=== PATIENT | male | born 1945 | race Caucasian/White ===

== ENCOUNTER → 2016-06-29 | Outpatient (CLI) | payer OTHER ==
[~2016-06-29] MED LIST: ALBUAER19 INH; ASPI81TA28 PO; ATOR-22 PO; FERR325T5 PO; FURO-85 PO; MAGN500T4 PO; METF1000 PO; NTRGSL/4 UT; SPIR25TA PO; SYMIN160 INH; TIOTCAP INH; VERA1TAB53 PO
--- NOTE | 2016-06-29 12:32 | DIAGNOSTIC IMAGING REPORT ---
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 FINDINGS: The cardiac and mediastinal contours are normal. There is no evidence of focal pulmonary consolidation. There is no evidence of failure. No pleural effusions are visualized.[ There is subtle basilar interstitial thickening, best visualized in the lateral view. IMPRESSION: No active disease in the chest. Electronically signed by: Barry Melendez M.D. 06/29/2016 12:31 PM Dictated Date/Time: 06/29/2016 12:30 PM
== END | disposition home or self-care (01) ==
LOC: C.RAD1850 12:10
PROVIDERS: ATTEND Internal Medicine Pulmonary Disease
DX: Z00.00 Encounter for general adult medical examination without abnormal findings (principal); J44.9 Chronic obstructive pulmonary disease, unspecified

== ENCOUNTER → 2016-09-13 | Outpatient (CLI) | payer OTHER ==
--- NOTE | 2016-09-13 10:45 | DIAGNOSTIC IMAGING REPORT ---
CHEST CT WITHOUT CONTRAST CT DOSE: 487.47 mGy.cm HISTORY: Dyspnea J44.9 DOP (diffuse obstructive pulmonary syndrome)[id number] TECHNIQUE: Multiaxial CT images of the chest were performed without contrast. COMPARISON: None. FINDINGS: Emphysematous changes noted throughout both hemithoraces. No focal infiltrate. No significant nodular pathology. Hilar and mediastinal regions show no significant adenopathy. Moderate atherosclerotic change thoracic aorta. There is no evidence for aneurysm. There are moderate degenerative changes of the thoracic spine. IMPRESSION: Moderate emphysematous change. No acute process. Electronically signed by: Precy Landa M.D. 09/13/2016 10:44 AM Dictated Date/Time: 09/13/2016 10:42 AM
== END | disposition home or self-care (01) ==
LOC: C.CTS 10:17
PROVIDERS: ATTEND Internal Medicine Pulmonary Disease
DX: J44.9 Chronic obstructive pulmonary disease, unspecified (principal); J43.9 Emphysema, unspecified

== ENCOUNTER → 2017-10-27 | Outpatient (CLI) | payer OTHER | END | disposition home or self-care (01) | LOC: C.LABSPEC 17:18 | PROVIDERS: ATTEND Podiatrist Primary Podiatric Medicine | DX: B35.1 Tinea unguium (principal) ==

== ENCOUNTER 2018-06-13 10:50 | Inpatient (IN) ==
[2018-06-13 11:53] LABS: Basophils # (auto) 0.02 K/uL (0-0.2); Basophils % (auto) 0.2 %; Eosinophils # (auto) 2.11 K/uL (0-0.5); Eosinophils % (auto) 20.2 %; Hematocrit (blood only) 32.8 % (42-52); Immature Granulocytes # (auto) 0.04 K/uL (0.00-0.02); Immature Granulocytes % (auto) 0.4 %; Lymphocytes # (auto) 0.98 K/uL (1.2-3.4); Lymphocytes % (auto) 9.4 %; Mean Corpuscular Hgb Conc 30.5 g/dL (32-36); Mean Corpuscular Volume 93.7 fL (80-100); Mean Platelet Volume 9.7 fL (7.4-10.4); Monocytes # (auto) 0.42 K/uL (0.11-0.59); Neutrophils # (auto) 6.86 K/uL (1.4-6.5); Neutrophils % (auto) 65.8 %; Platelet Count 291 K/uL (130-400); RDW Coefficient of Variation 15.2 % (11.5-14.5); RDW Standard Deviation 52.2 fL (36.4-46.3); White Blood Count 10.43 K/uL (4.8-10.8)
--- NOTE | 2018-06-13 12:01 | XRay Report ---
XR chest 1V portable CLINICAL HISTORY: SOB COMPARISON STUDY: 04/19/2018 FINDINGS: Since the prior study, the patient has developed extensive right upper lobe airspace opacit ies and to a lesser extent right lower lung zone airspace opacities. There is underlying emphysema. T he left lung is clear. There is a trace right pleural effusion.[ IMPRESSION: Extensive right lung airspace opacities, likely secondary to pneumonia. Trace right pleur al effusion. Films subsequent to treatment are recommended in follow-up. Electronically signed by: Barry Melendez M.D. 06/13/2018 11:59 AM
[2018-06-13 12:05] LABS: INR 1.1 (0.9-1.1); Partial Thromboplastin Ratio 0.9; Partial Thromboplastin Time 24.8 Seconds (21.0-31.0)
[2018-06-13 12:15] LABS: Alanine Aminotransferase 19 U/L (12-78); Albumin Level 2.9 gm/dl (3.4-5.0); Aspartate Aminotransferase 13 U/L (15-37); BUN Creatinine Ratio 20.1 (10-20); Blood Urea Nitrogen 23 mg/dl (7-18); Calcium 8.5 mg/dl (8.5-10.1); Carbon Dioxide 34 mmol/L (21-32); Chloride 101 mmol/L (98-107); Creatinine Clr Calc Pharmacy 64.2 ml/min; Est GFR (African American) 72.3; Est GFR (Non-African American) 62.4; Glucose 214 mg/dl (70-99); Potassium 4.7 mmol/L (3.5-5.1); Sodium 137 mmol/L (136-145)
[2018-06-13 12:20] LABS: Albumin Globulin Ratio 0.7 (0.9-2); Alkaline Phosphatase 57 U/L (45-117); Bilirubin,Total 0.3 mg/dl (0.2-1); Globulin 3.9 gm/dl (2.5-4.0); Total Protein 6.8 gm/dl (6.4-8.2); Troponin I < 0.015 ng/ml (0-0.045)
[2018-06-13] MEDS ORDERED: ALBUT/IPRATROP 3MG/0.5MG NEB 3 ML VIAL NEB ONE (12:23)
[2018-06-13] MEDS ORDERED: methylPREDNISolone 125 MG/2 ML VIAL IV STA (12:23)
[2018-06-13 12:48] LABS: Magnesium 2.2 mg/dl (1.8-2.4)
[2018-06-13] MEDS ORDERED: OPTIRAY 320 125ml IV PRN (13:45)
[2018-06-13] MEDS: LEVOFLOXACIN/D5W 750 MG/150 ML BAG IV SCH (13:53)
--- NOTE | 2018-06-13 14:01 | CT Scan Report ---
CT ANGIOGRAM OF THE CHEST CLINICAL HISTORY: Shortness of breath. Possible pulmonary embolism. COMPARISON STUDY: Chest x-ray dated 06/13/2018 TECHNIQUE: Following the IV administration of 95 mL of Optiray-320, CT angiogram of the thorax was pe rformed from the thoracic inlet to the lung bases utilizing the pulmonary embolus protocol. Images ar e reviewed in the axial, sagittal, and coronal planes. IV contrast was administered without complicat ion. MIP imaging was performed. A dose lowering technique was utilized adhering to the principles of ALARA. CT DOSE: 333.70 mGy.cm FINDINGS: No pathologically enlarged axillary mediastinal or hilar lymph nodes were visualized. There is mild ectasia of the ascending thoracic aorta which measures 4 cm. There were no pulmonary artery filling defects to indicate acute pulmonary embolism. There is a small right pleural effusion. There is pulmonary emphysema. There are extensive right upper lobe airspace opacities, most likely se condary to pneumonia. There are dependent right lower lobe atelectatic changes. IMPRESSION: 1. No evidence of acute pulmonary embolism 2. Small right pleural effusion 3. Extensive right upper lobe airspace opacities likely secondary to a pneumonia. Films subsequent to treatment are recommended in follow-up. 4. Emphysema Electronically signed by: Barry Melendez M.D. 06/13/2018 2:00 PM
--- NOTE | 2018-06-13 14:06 | History & Physical Report ---
Date of Service June 13, 2018 Assessment & Plan (1) Hypoxia: (2) Community acquired pneumonia: (3) Acute exacerbation of chronic obstructive pulmonary disease (COPD): (4) Failure of outpatient treatment: - Admit to med surg with tele - ypically wears 3L O2 at all times, was hypoxic with sats = 86% on arrival, pt notes increased O2 to 5 L prior to admission. -Patient was started on Levaquin in the ER, will switch to ceftriaxone and doxycycline -Patient notes has been taking azithromycin Monday since April, likely for anti-inflammatory properties with history of severe COPD. Development of pneumonia on this antibiotic is concerning. -Will consult pulmonology for recs. -No leukocytosis, WBC 10.4, Afebrile, vital signs stable -We will continue on nebulizers Q4H and Q2Hprn -Placed on steroids for wheeze and taper -Patient has had recent PFTs on 05/30/18 demonstrating very severe obstructive pattern. Actual FEV1 is only 0.96 L. FEV1/FVC ratio is only 34%. After a repeat study with bronchodilators there was not much improvement in the function. Diffusion was normal at 88% predicted. (5) CHF (congestive heart failure): -Continue the patient on aspirin 81 mg daily, candesartan 4 mg daily. Patient notes history of recently being taken off spironolactone which is likely contributing to retention of fluid in bilateral lower extremities. -Give Lasix 40 mg IV now, hold p.o. Lasix as per [employer] meds -Can not find last Echo report in our system or allscripts -Consider cardiology consult- Dr. Enrique -Possible that fluid retention is making pneumonia appear more prominent on CT and xray (6) CAD (coronary artery disease): Continue medications as above (7) Hyperlipidemia: -Continue atorvastatin (8) SVT (supraventricular tachycardia): - History of such, stable (9) DM type 2 (diabetes mellitus, type 2): -ISS with Accu-Cheks achs, dapagliflozin, holding metformin - consider glycemic pharmacy consult with steriod use. -Checking A1c, patient reports most recent was 8.0 (10) Iron deficiency: - Hgb 10, dropped from 12 in Dec 2017, will monitor with am labs. (11) Hypertension: - Continue antihypertensives as above. (12) DVT prophylaxis: teds, scds, lovenox subq History of Present Illness Primary Care Provider: Diaz Thomas MD This is a 73 yo M with PMHx of HTN, HLD, CHF, pulmonary hypertension, SVT, diabetes, CAD, MO, peripheral neuropathy, COPD on O2 chronically, sleep apnea and arthritis who presents with worsening shortness of breath over the last few days. The patient notes that he yellow thin mucus which she has been expectorating greatly at night, but contributes this to taking Mucinex 600 mg BID. He notes that he has recently had to increase his O2 requirement from 2 L to 3 L continuously, and within the past few days has been wearing 5 L at all times. The patient has been unable to participate in basic ADLs without feeling short of breath. He denies any fevers chills or sweats. Patient notes that he sleeps lying flat but wakes up multiple times at night to urinate and reports his cough and mucus expectoration have largely been keeping him awake. Patient was in to see Dr. Enrique ~2 weeks ago for routine cardiology follow-up and was taken off his spironolactone and placed on candesartan due to his blood pressure being well managed. Patient notes his legs have gotten significantly swollen in the last 2 weeks. He takes Lasix 20 mg every other day and last took this y . He is also been recently started on dapaglifozin for DM. Patient notes that he has been taking azithromycin Monday for at least 2 months and follows with chief deputy, Dr. whiteside/Melissa Simpson PA-C routinely. Allergies Allergy/AdvReac Type Severity Reaction Status Date / Time ALYSSA Inhibitors Allergy Unknown ANAPHYLAXIS Verified 06/13/18 12:18 Home Medications Home Medications Medication Instructions Recorded Confirmed Type albuterol sulfate 2 puff INHALATION QID PRN 12/14/17 06/13/18 History aspirin 81 mg PO QAM 12/14/17 06/13/18 History atorvastatin 20 mg PO HS 12/14/17 06/13/18 History diltiazem HCl 360 mg PO DAILY 12/14/17 06/13/18 History ferrous sulfate 1 tab PO DAILY 12/14/17 06/13/18 History fluticasone-salmeterol 2 puff INHALATION BID 12/14/17 06/13/18 History metformin 1,000 mg PO BID 12/14/17 06/13/18 History nitroglycerin 0.4 mg SUBLINGUAL DIRECTED PRN 12/14/17 06/13/18 History azithromycin 250 mg PO DIRECTED 06/13/18 06/13/18 History candesartan 4 mg PO DAILY 06/13/18 06/13/18 History dapagliflozin 5 mg PO DAILY 06/13/18 06/13/18 History furosemide 2 tab PO DIRECTED 06/13/18 06/13/18 History guaifenesin 600 mg PO Q12H 06/13/18 06/13/18 History magnesium oxide 2 tab PO BID 06/13/18 06/13/18 History tiotropium bromide [Spiriva 2 puff INHALATION DAILY 06/13/18 06/13/18 History Respimat] Past Med/Surg History Medical History Hyperlipidemia CHF (congestive heart failure) Iron deficiency SVT (supraventricular tachycardia) DM type 2 (diabetes mellitus, type 2) CAD (coronary artery disease) COPD (chronic obstructive pulmonary disease) Cardiac disease H/O pulmonary emphysema HTN (hypertension) History of arthritis History of cardioversion History of heart attack History of pneumonia Hypomagnesemia Peripheral neuropathy Sleep apnea Surgical History History of colonoscopy History of nasal surgery Status post cataract extraction of both eyes with insertion of intraocular lens Social History Preferred Language: Micronesian Beliefs That Will Affect Care: None Current Living Situation: Alone Feels Safe at Home: Yes Smoking Status: Former smoker Hx Alcohol Use: Yes Hx Substance Use: Yes Review of Systems Constitutional: No fever, sweats or chills Eyes: No diplopia, no worsening or blurred vision ENT: normal hearing, no trouble swallowing Respiratory: As per HPI. Cardiovascular: No chest pain, tightness or palpitations Abdomen: No pain, nausea, vomiting, diarrhea or constipation Musculoskeletal: No joint pain, calf pain. + Increase bilat leg swelling Neurologic: No weakness, numbness/tingling, or balance problems Psychiatric: No anxiety or depression Skin: No rash or itch Physical Exam Vital Signs (Past 24 Hours): Last Vital Signs Temp 36.5 C 06/13/18 10:55 Pulse 75 06/13/18 14:00 Resp 16 06/13/18 14:00 BP 138/60 06/13/18 12:50 Pulse Ox 95 06/13/18 14:00 Physical Exam: General: awake, alert, no apparent distress Head: Normocephalic, atraumatic ENT: PERRL, EOMI, no pharyngeal exudate, mucous membranes moist Chest: On neb treatment at bedside with 7L, O2 sats = 98%, + diminished breath sounds in R base, + crackles in RUL, + tight breath sounds with inspiratory and exp wheeze. Cardiac: Regular rate and rhythm, no murmur, no JVD, normal peripheral pulses, good capillary refill Abdominal: NABS x 4 quadrants, soft, nontender to palpation, no rebound, guarding or tenderness Extremities: Normal inspection, 3+ peripheral edema bilaterally up to knees, no erythema, no hair over legs, calfs nontender to palpation Psych: Normal mood and affect Neuro: AAO x 3, strength intact bilaterally and related 5/5, no motor deficits, speech is clear, no peripheral sensory deficits Constitutional: WD/WN, vitals as above Eyes: normal visual lozoya by confrontation and + anicteric sclerae Neck: normal visual inspection and trachea midline Respiratory: no respiratory distress Auscultation: + crackles and + wheezes (expiratory and mild) Cardiovascular: Rate/Rhythm: regular rate and regular rhythm Gastrointestinal (Abdomen): Inspection/Auscultation: abdomen not distended Percussion/Palpation: abdomen soft; abdomen nontender Musculoskeletal: Head/Neck/Chest: normocephalic and head atraumatic 2+ pitting LE edema, + pedal pulses Skin: no rashes, warm and dry Neurologic: awake; not confused Speech / Cognition: normal speech Psychiatric: A+Ox3, euthymic affect Lymphatic: Exam as done by Melissa Rao DO Results & Data Diagnostic Findings XR chest 1V portable CLINICAL HISTORY: SOB COMPARISON STUDY: 04/19/2018 FINDINGS: Since the prior study, the patient has developed extensive right upper lobe airspace opacities and to a lesser extent right lower lung zone airspace opacities. There is underlying emphysema. The left lung is clear. There is a trace right pleural effusion.[ IMPRESSION: Extensive right lung airspace opacities, likely secondary to pneumonia. Trace right pleural effusion. Films subsequent to treatment are recommended in follow-up. CT ANGIOGRAM OF THE CHEST CLINICAL HISTORY: Shortness of breath. Possible pulmonary embolism. COMPARISON STUDY: Chest x-ray dated 06/13/2018 TECHNIQUE: Following the IV administration of 95 mL of Optiray-320, CT angiogram of the thorax was performed from the thoracic inlet to the lung bases utilizing the pulmonary embolus protocol. Images are reviewed in the axial, sagittal, and coronal planes. IV contrast was administered without complication. MIP imaging was performed. A dose lowering technique was utilized adhering to the principles of ALARA. CT DOSE: 333.70 mGy.cm FINDINGS: No pathologically enlarged axillary mediastinal or hilar lymph nodes were visualized. There is mild ectasia of the ascending thoracic aorta which measures 4 cm. There were no pulmonary artery filling defects to indicate acute pulmonary embolism. There is a small right pleural effusion. There is pulmonary emphysema. There are extensive right upper lobe airspace opacities, most likely secondary to pneumonia. There are dependent right lower lobe atelectatic changes. IMPRESSION: 1. No evidence of acute pulmonary embolism 2. Small right pleural effusion 3. Extensive right upper lobe airspace opacities likely secondary to a pneumonia. Films subsequent to treatment are recommended in follow-up. 4. Emphysema ECG Additional Comments: 13-JUN-2018 11:22:56 [facility] Poor data quality, interpretation may be adversely affected Normal sinus rhythm Normal ECG When compared with ECG of 14-DEC-2017 11:58, Premature ventricular complexes are no longer Present Confirmed by KIERAN CATES ([id number]) on 06/13/2018 2:38:23 PM 25mm/s 10mm/mV 150Hz 8.0 SP2 12SL 241 LEANDER: 11 Referred by: ED Confirmed By: KIERAN Crocker. rate 82 BPM CA interval 156 ms QRS duration 100 ms QT/QTc 380/443 ms P-R-T axes 51 76 67 Code Status & VTE Plan Code Status Full Code- discussed at bedside Supervising Physician Co-Signing Physician Notes Pt seen and examined by me. Denies chest pain. States that SOB is resolved. Has been tolerating PO without issue. Daughter arrived during my discussion with pt. She is a nurse and has some concerns about pt's current status. She states that prior to his admission in December for PNA, pt was only using O2 HS. He has not been able to wean off of this in the daytime. She states it is very hard for him to be seen in Dr. Whiteside's office. When he calls it is at least a two week wait time for an appt. She is concerned about multiple changes in his DM meds and the d/c of spironolactone as this has caused him substantial LE swelling. The spirono was stopped due to BP being WNL per pt. Agree with HPI/ROS as noted by PA See above for my exam in PE section Agree with plan as outlined above PNA + CHF exacerbation Pt is on azithromycin M/W/F but developed PNA despite this. Given levaquin in the ED, will upscale to doxy/ceftriaxone Lasix Nebs
[2018-06-13] MEDS ORDERED: DEXTROSE 50% 50 ML SYRINGE IV PRN (14:10)
[2018-06-13] MEDS ORDERED: GLUCOSE 10 TABS/TUBE PO PRN (14:10)
[2018-06-13] MEDS ORDERED: GLUCOSE 40% GEL 15 GM TUBE PO PRN (14:10)
[2018-06-13] MEDS ORDERED: GLUCAGON FOR INJ 1 MG VIAL SQ PRN (14:10)
[2018-06-13] MEDS ORDERED: CARBOHYDRATES FOR HYPOGLYCEMIA PO PRN (14:10)
[2018-06-13] MEDS ORDERED: ACETAMINOPHEN 325 MG TAB PO PRN (14:10)
[2018-06-13] MEDS ORDERED: ONDANSETRON INJ 2 MG/ML 2 ML VIAL IV PRN (14:10)
[2018-06-13] MEDS ORDERED: LEVALBUTEROL HCL 1.25 MG/3 ML NEB NEB SCH (14:15)
[2018-06-13] MEDS ORDERED: FUROSEMIDE 40 MG/4 ML VIAL IV STA (14:42)
[2018-06-13] MEDS: DOXYCYCLINE HYCLATE 100 MG in DEXTROSE 5% 100 ML IV SCH (17:34)
[2018-06-13] MEDS: INSULIN ASPART 100 UNITS/ML 3 ML PEN SC SCH ×2 (17:37→22:14)
[2018-06-13] MEDS: ENOXAPARIN INJ 40 MG/0.4 ML SYR SQ SCH (17:38)
[2018-06-13] MEDS: LEVALBUTEROL HCL 1.25 MG/3 ML NEB NEB SCH (19:02)
[2018-06-13] MEDS: guaiFENesin 600 MG TABCR PO SCH (20:03)
[2018-06-13] MEDS: BENZONATATE 100 MG CAPSULE PO SCH (20:03)
[2018-06-13] MEDS: MAGNESIUM OXIDE 400 MG TAB PO SCH (20:03)
[2018-06-13] MEDS: ATORVASTATIN 20 MG TAB PO SCH (20:03)
--- NOTE | 2018-06-14 01:43 | Emergency Department Note ---
Entered by Duane Peres acting as a scribe for Aamir Camp MD History of Present Illness General Chief complaint: Shortness of Breath/Dyspnea Stated complaint: BREATHING PROBLEMS Time Seen by Provider: 06/13/18 12:07 Source: patient Limitations: no limitations History of Present Illness Provider complaint: SOB Onset (ago): day(s) Location: chest (worsening SOB) Pain Consistency: + other (worsening) Quality: + other (SOB) Exacerbated By: + other (laying in bed at night) Associated symptoms: + cough and + other (LE swelling) Treatments prior to arrival: other (Azithromycin ) The patient is a 73 year old male who presents to the Emergency Room with complaints of worsening shortness of breath over the past couple of days. The patient states that he does have shortness of breath at baseline and is on 3 liters of oxygen normally. He notes that his Fund Director did increase his oxygen from 3 liter to 5 liters "just the other day" due to his worsening breathing. The patient adds that he has been having increased difficulty breathing, which is most noticeable when he walks to the restroom. This is unusual for him. The shortness of breath is worsened by laying flat at night and he needed to sleep sitting up in a chair last night. The patient has had a productive cough as well, which is producing a "thin reyna yellow mucous." He believes that the mucous is being "thinned out" by the Mucinex he has been taking. The patient was diagnosed with a right sided pneumonia in December of last year, 6 months ago. The patient's ex- at bedside believes that this episode of pneumonia was never cleared fully. He is still on Azithromycin every other day. The patient continues to complain that his legs have felt incr easingly swollen. He is on Lasix and denies missing any dosages. The patient is scheduled to have a sleep-study performed and is to be given a C-pap device. Home Medications Home Medications Medication Instructions Recorded Confirmed Type albuterol sulfate 2 puff INHALATION QID PRN 12/14/17 06/13/18 History aspirin 81 mg PO QAM 12/14/17 06/13/18 History atorvastatin 20 mg PO HS 12/14/17 06/13/18 History diltiazem HCl 360 mg PO DAILY 12/14/17 06/13/18 History ferrous sulfate 1 tab PO DAILY 12/14/17 06/13/18 History fluticasone-salmeterol 2 puff INHALATION BID 12/14/17 06/13/18 History metformin 1,000 mg PO BID 12/14/17 06/13/18 History nitroglycerin 0.4 mg SUBLINGUAL DIRECTED PRN 12/14/17 06/13/18 History azithromycin 250 mg PO DIRECTED 06/13/18 06/13/18 History candesartan 4 mg PO DAILY 06/13/18 06/13/18 History dapagliflozin 5 mg PO DAILY 06/13/18 06/13/18 History furosemide 2 tab PO DIRECTED 06/13/18 06/13/18 History guaifenesin 600 mg PO Q12H 06/13/18 06/13/18 History magnesium oxide 2 tab PO BID 06/13/18 06/13/18 History tiotropium bromide [Spiriva 2 puff INHALATION DAILY 06/13/18 06/13/18 History Respimat] Allergies Allergy/AdvReac Type Severity Reaction Status Date / Time ALYSSA Inhibitors Allergy Unknown ANAPHYLAXIS Verified 06/13/18 12:18 Past Med/Surg History Medical History Hypertension Hypoxia Community acquired pneumonia Pneumonia (Acute) Acute exacerbation of chronic obstructive pulmonary disease (COPD) (Acute) Hyperlipidemia CHF (congestive heart failure) Iron deficiency SVT (supraventricular tachycardia) DM type 2 (diabetes mellitus, type 2) CAD (coronary artery disease) Diabetes COPD (chronic obstructive pulmonary disease) Cardiac disease H/O pulmonary emphysema HTN (hypertension) History of arthritis History of cardioversion History of heart attack History of pneumonia Hypomagnesemia Peripheral neuropathy Sleep apnea Surgical History History of colonoscopy History of nasal surgery Status post cataract extraction of both eyes with insertion of intraocular lens Family History Other Brain tumor Depression Hypertension Stroke Social History Preferred Language: Divehi Communication Ability: Effective Beliefs That Will Affect Care: None Current Living Situation: Alone Other Information That Helps Us Care for You: No Feels Safe at Home: Yes Safety Concerns: Feels Safe At This Time Smoking Status: Former smoker Hx Alcohol Use: Yes Hx Substance Use: No Review of Systems See HPI for pertinent positives & negatives. and A total of 10 systems reviewed and were otherwise negative Physical Exam Vital Signs Vital Signs - 24 hr 06/13/18 10:55 06/13/18 11:15 06/13/18 11:22 Temperature 36.5 C Temperature Source Oral Sepsis Recent Fever Within 48 Hours No Sepsis New/Unexplained Change in Mental Status No Sepsis Action Taken by Nursing No Action Required Pulse Rate 88 Pulse Rate [Apical] Pulse Rate [Finger] Pulse Rhythm [Apical] Pulse Rhythm [Finger] Pulse Strength [Apical] Pulse Strength [Finger] Respiratory Rate 20 Respiratory Effort / Characteristics Non-Labored Spontaneous Respiratory Depth Normal Respiratory Pattern Regular Blood Pressure 135/68 Blood Pressure [Left Arm] Blood Pressure [Right Arm] Blood Pressure Mean 90 Blood Pressure Mean [Left Arm] Blood Pressure Mean [Right Arm] Blood Pressure Position [Left Arm] Blood Pressure Position [Right Arm] Pulse Oximetry 86 L 96 Oxygen Delivery Method Nasal Cannula Nasal Cannula Nasal Cannula Oxygen Flow Rate 5 5 5 06/13/18 11:32 06/13/18 12:50 06/13/18 14:00 Temperature Temperature Source Sepsis Recent Fever Within 48 Hours Sepsis New/Unexplained Change in Mental Status Sepsis Action Taken by Nursing Pulse Rate Pulse Rate [Apical] 80 75 Pulse Rate [Finger] Pulse Rhythm [Apical] Regular Pulse Rhythm [Finger] Pulse Strength [Apical] Normal Pulse Strength [Finger] Respiratory Rate 18 16 Respiratory Effort / Characteristics Non-Labored Spontaneous Non-Labored Spontaneous Respiratory Depth Normal Respiratory Pattern Regular Blood Pressure Blood Pressure [Left Arm] Blood Pressure [Right Arm] 138/60 Blood Pressure Mean Blood Pressure Mean [Left Arm] Blood Pressure Mean [Right Arm] 86 Blood Pressure Position [Left Arm] Blood Pressure Position [Right Arm] Lying Pulse Oximetry 96 97 95 Oxygen Delivery Method Nasal Cannula Nasal Cannula Nasal Cannula Oxygen Flow Rate 5 5 6 06/13/18 14:36 06/13/18 15:14 06/13/18 15:47 Temperature 36.4 C L Temperature Source Oral Sepsis Recent Fever Within 48 Hours Sepsis New/Unexplained Change in Mental Status Sepsis Action Taken by Nursing Pulse Rate 77 Pulse Rate [Apical] 75 86 Pulse Rate [Finger] Pulse Rhythm [Apical] Regular Regular Pulse Rhythm [Finger] Pulse Strength [Apical] Normal Normal Pulse Strength [Finger] Respiratory Rate 16 20 Respiratory Effort / Characteristics Non-Labored Spontaneous Non-Labored Spontaneous Respiratory Depth Normal Normal Respiratory Pattern Regular Regular Blood Pressure Blood Pressure [Left Arm] Blood Pressure [Right Arm] 137/59 L 137/66 Blood Pressure Mean Blood Pressure Mean [Left Arm] Blood Pressure Mean [Right Arm] 85 89 Blood Pressure Position [Left Arm] Blood Pressure Position [Right Arm] Lying Sitting Pulse Oximetry 95 92 Oxygen Delivery Method Nasal Cannula Nasal Cannula Oxygen Flow Rate 5 5 06/13/18 18:44 06/13/18 19:02 06/13/18 20:00 Temperature 36.7 C Temperature Source Oral Sepsis Recent Fever Within 48 Hours Sepsis New/Unexplained Change in Mental Status Sepsis Action Taken by Nursing Pulse Rate Pulse Rate [Apical] 98 H Pulse Rate [Finger] 78 Pulse Rhythm [Apical] Pulse Rhythm [Finger] Pulse Strength [Apical] Pulse Strength [Finger] Respiratory Rate 18 18 Respiratory Effort / Characteristics Non-Labored Spontaneous SOB on Exertion Non-Labored Spontaneous Respiratory Depth Normal Respiratory Pattern Regular Blood Pressure Blood Pressure [Left Arm] 139/66 Blood Pressure [Right Arm] Blood Pressure Mean Blood Pressure Mean [Left Arm] 90 Blood Pressure Mean [Right Arm] Blood Pressure Position [Left Arm] Lying Blood Pressure Position [Right Arm] Pulse Oximetry 89 L 90 Oxygen Delivery Method Nasal Cannula Nasal Cannula Nasal Cannula Oxygen Flow Rate 5 5 5 06/13/18 23:24 Temperature 36.7 C Temperature Source Oral Sepsis Recent Fever Within 48 Hours Sepsis New/Unexplained Change in Mental Status Sepsis Action Taken by Nursing Pulse Rate Pulse Rate [Apical] Pulse Rate [Finger] 68 Pulse Rhythm [Apical] Pulse Rhythm [Finger] Regular Pulse Strength [Apical] Pulse Strength [Finger] Normal Respiratory Rate 18 Respiratory Effort / Characteristics Non-Labored Respiratory Depth Normal Respiratory Pattern Regular Blood Pressure Blood Pressure [Left Arm] 148/71 H Blood Pressure [Right Arm] Blood Pressure Mean Blood Pressure Mean [Left Arm] 96 Blood Pressure Mean [Right Arm] Blood Pressure Position [Left Arm] Lying Blood Pressure Position [Right Arm] Pulse Oximetry 94 Oxygen Delivery Method Oxygen Flow Rate GENERAL: Awake, alert, ill-appearing, in no distress HENT: Normocephalic, atraumatic. Oropharynx with dry mucous membranes and otherwise unremarkable. EYES: Normal conjunctiva. Sclera non-icteric. NECK: Supple. No nuchal rigidity. FROM. No JVD. RESPIRATORY: Rhonchi throughout right lung lozoya and scattered wheezes throughout. CARDIAC: Regular rate, normal rhythm. Extremities warm and well perfused. Pulses equal. ABDOMEN: Soft, non-distended. No tenderness to palpation. No rebound or gua rding. No masses. RECTAL: Deferred. MUSCULOSKELETAL: Chest examination reveals no tenderness. The back is symmetrical on inspection without obvious abnormality. There is no CVA tenderness to palpation. No joint edema. LOWER EXTREMITIES: Calves are equal size bilaterally and non-tender. 3+ bilateral lower extremity edema. No discoloration. NEURO: Normal sensorium. No sensory or motor deficits noted. SKIN: No rash or jaundice noted. Course 1216: Past medical records reviewed. The patient was evaluated in room C11A, and a complete history and physical examination were performed. 1253: Past records reviewed. Patient has history of COPD, DM2, CAD, CHF, HTN, HLD. He was admitted in December of 2017 for pneumonia. 1256: I reviewed the patient's case with Melissa Rao [facility] Hospitalist - [facility] Hospitalist. She will evaluate the patient for further management. Administered Medications Atorvastatin Calcium (Lipitor) 20 mg PO HS RICHARD Stop: 07/13/18 20:59 Last Admin: 06/13/18 20:03 Dose: 20 mg Documented by: [id number] Benzonatate (Tessalon Perle) 100 mg PO TID RICHARD Stop: 07/13/18 20:59 Last Admin: 06/13/18 20:03 Dose: 100 mg Documented by: [id number] Enoxaparin Sodium (Lovenox) 40 mg SQ Q24H RICHARD Stop: 07/13/18 16:59 Last Admin: 06/13/18 17:38 Dose: 40 mg Documented by: [id number] Guaifenesin (Mucinex) 1,200 mg PO Q12 RICHARD Stop: 07/13/18 20:59 Last Admin: 06/13/18 20:03 Dose: 1,200 mg Documented by: [id number] Levofloxacin/Dextrose (Levaquin/D5w) 750 mg in 150 mls @ 100 mls/hr IV Q24H RICHARD Stop: 06/20/18 12:29 Last Infusion: 06/13/18 15:30 Dose: 0 mls/hr Documented by: [id number] Admin: 06/13/18 13:53 Dose: 100 mls/hr Documented by: [id number] Doxycycline Hyclate 100 mg/ (Dextrose) 110 mls @ 50 mls/hr IV Q12H RICHARD Stop: 06/20/18 16:59 Last Infusion: 06/13/18 20:01 Dose: 0 mls/hr Documented by: [id number] Admin: 06/13/18 17:34 Dose: 50 mls/hr Documented by: [id number] Insulin Aspart (Novolog Flexpen) 0 units SC ACHS RICHARD Stop: 07/13/18 16:29 Last Admin: 06/13/18 22:14 Dose: 5 units Documented by: [id number] Cosigned by: [id number] Admin: 06/13/18 17:37 Dose: 7 units Documented by: [id number] Cosigned by: [id number] Ioversol (Optiray 320 125ml) 95 ml IV ONCE PRN PRN Reason: Interaction Checking Stop: 06/17/18 13:44 Last Admin: 06/13/18 13:45 Dose: 95 ml Documented by: [id number] Levalbuterol HCl (Xopenex 1.25mg/3ml Neb) 1.25 mg NEB Q6R RICHARD Stop: 07/13/18 14:14 Last Admin: 06/13/18 19:02 Dose: 1.25 mg Documented by: [id number] Magnesium Oxide (Mag-Ox) 800 mg PO BID RICHARD Stop: 07/13/18 20:59 Last Admin: 06/13/18 20:03 Dose: 800 mg Documented by: [id number] Miscellaneous (Order Awaiting Action) 1 ea N/A QS RICHARD Stop: 07/14/18 00:00 Last Admin: 06/13/18 23:14 Dose: Not Given Documented by: [id number] Miscellaneous (Order Awaiting Action) 1 ea N/A QS RICHARD Stop: 07/14/18 00:00 Last Admin: 06/13/18 23:14 Dose: Not Given Documented by: [id number] Discontinued Medications Albuterol (Duoneb) 12 ml NEB ONE ONE Stop: 06/13/18 12:24 Last Admin: 06/13/18 13:59 Dose: 12 ml Documented by: [id number] Furosemide (Lasix) 40 mg IV NOW STA Stop: 06/13/18 14:43 Last Admin: 06/13/18 17:34 Dose: 40 mg Documented by: [id number] Levalbuterol HCl (Xopenex 1.25mg/3ml Neb) 1.25 mg NEB Q6H RICHARD Stop: 07/13/18 14:14 Last Admin: 06/13/18 19:48 Dose: Not Given Documented by: [id number] Methylprednisolone (Solumedrol) 125 mg IV NOW STA Stop: 06/13/18 12:24 Last Admin: 06/13/18 12:50 Dose: 125 mg Documented by: [id number] Medical Decision Making Differential Diagnosis Differential diagnosis: Etiologies such as infections, reactive airway disease, COPD, pneumonia, pleural effusion, pulmonary edema, ARDS, pneumothorax, CHF, cardiac ischemia, cardiac tamponade, dysrhythmia, anemia, pulmonary embolism, musculoskeletal, gastrointestinal process, as well as others were entertained. Medical Records Attestation: I reviewed the patient's medical records. Home Medications Current Medication List: was personally reviewed by me Laboratory Data Attestation: I reviewed the patient's lab results. Result diagrams: 06/13/18 11:40 06/13/18 11:40 Lab Results 06/13/18 06/13/18 06/13/18 Range/Units 11:40 11:40 11:40 WBC 10.43 (4.8-10.8) K/uL RBC 3.50 L (4.7-6.1) M/uL Hgb 10.0 L (14.0-18.0) g/dL Hct 32.8 L (42-52) % MCV 93.7 (80-100) fL MCH 28.6 (25-34) pg MCHC 30.5 L (32-36) g/dL RDW Std Deviation 52.2 H (36.4-46.3) fL RDW Coeff of Arnoldo 15.2 H (11.5-14.5) % Plt Count 291 (130-400) K/uL MPV 9.7 (7.4-10.4) fL Immature Gran % (Auto) 0.4 % Neut % (Auto) 65.8 % Lymph % (Auto) 9.4 % Hawkins % (Auto) 4.0 % Eos % (Auto) 20.2 % Baso % (Auto) 0.2 % Immature Gran # (Auto) 0.04 H (0.00-0.02) K/uL Neut # (Auto) 6.86 H (1.4-6.5) K/uL Lymph # (Auto) 0.98 L (1.2-3.4) K/uL Hawkins # (Auto) 0.42 (0.11-0.59) K/uL Eos # (Auto) 2.11 H (0-0.5) K/uL Baso # (Auto) 0.02 (0-0.2) K/uL PT 11.0 (9.0-12.0) Seconds INR 1.1 (0.9-1.1) APTT 24.8 (21.0-31.0) Seconds PTT Ratio 0.9 Sodium 137 (136-145) mmol/L Potassium 4.7 (3.5-5.1) mmol/L Chloride 101 (98-107) mmol/L Carbon Dioxide 34 H (21-32) mmol/L Anion Gap 2.0 L (3-11) BUN 23 H (7-18) mg/dl Creatinine 1.17 (0.6-1.4) mg/dl Est Cr Clr Drug Dosing 64.2 ml/min Est GFR ( Amer) 72.3 Est GFR (Non-Af Amer) 62.4 BUN/Creatinine Ratio 20.1 H (10-20) Glucose 214 H (70-99) mg/dl POC Glucose (70-99) Calcium 8.5 (8.5-10.1) mg/dl Magnesium (1.8-2.4) mg/dl Total Bilirubin 0.3 (0.2-1) mg/dl AST 13 L (15-37) U/L ALT 19 (12-78) U/L Alkaline Phosphatase 57 (45-117) U/L Troponin I < 0.015 (0-0.045) ng/ml NT-Pro-B Natriuret Pep (0-900) pg/ml Total Protein 6.8 (6.4-8.2) gm/dl Albumin 2.9 L (3.4-5.0) gm/dl Globulin 3.9 (2.5-4.0) gm/dl Albumin/Globulin Ratio 0.7 L (0.9-2) Procalcitonin (0-0.5) ng/ml 06/13/18 06/13/18 06/13/18 Range/Units 11:40 11:40 17:09 WBC (4.8-10.8) K/uL RBC (4.7-6.1) M/uL Hgb (14.0-18.0) g/dL Hct (42-52) % MCV (80-100) fL MCH (25-34) pg MCHC (32-36) g/dL RDW Std Deviation (36.4-46.3) fL RDW Coeff of Arnoldo (11.5-14.5) % Plt Count (130-400) K/uL MPV (7.4-10.4) fL Immature Gran % (Auto) % Neut % (Auto) % Lymph % (Auto) % Hawkins % (Auto) % Eos % (Auto) % Baso % (Auto) % Immature Gran # (Auto) (0.00-0.02) K/uL Neut # (Auto) (1.4-6.5) K/uL Lymph # (Auto) (1.2-3.4) K/uL Hawkins # (Auto) (0.11-0.59) K/uL Eos # (Auto) (0-0.5) K/uL Baso # (Auto) (0-0.2) K/uL PT (9.0-12.0) Seconds INR (0.9-1.1) APTT (21.0-31.0) Seconds PTT Ratio Sodium (136-145) mmol/L Potassium (3.5-5.1) mmol/L Chloride (98-107) mmol/L Carbon Dioxide (21-32) mmol/L Anion Gap (3-11) BUN (7-18) mg/dl Creatinine (0.6-1.4) mg/dl Est Cr Clr Drug Dosing ml/min Est GFR ( Amer) Est GFR (Non-Af Amer) BUN/Creatinine Ratio (10-20) Glucose (70-99) mg/dl POC Glucose 243 H (70-99) Calcium (8.5-10.1) mg/dl Magnesium 2.2 (1.8-2.4) mg/dl Total Bilirubin (0.2-1) mg/dl AST (15-37) U/L ALT (12-78) U/L Alkaline Phosphatase (45-117) U/L Troponin I (0-0.045) ng/ml NT-Pro-B Natriuret Pep 415 (0-900) pg/ml Total Protein (6.4-8.2) gm/dl Albumin (3.4-5.0) gm/dl Globulin (2.5-4.0) gm/dl Albumin/Globulin Ratio (0.9-2) Procalcitonin 0.05 (0-0.5) ng/ml 06/13/18 Range/Units 20:16 WBC (4.8-10.8) K/uL RBC (4.7-6.1) M/uL Hgb (14.0-18.0) g/dL Hct (42-52) % MCV (80-100) fL MCH (25-34) pg MCHC (32-36) g/dL RDW Std Deviation (36.4-46.3) fL RDW Coeff of Arnoldo (11.5-14.5) % Plt Count (130-400) K/uL MPV (7.4-10.4) fL Immature Gran % (Auto) % Neut % (Auto) % Lymph % (Auto) % Hawkins % (Auto) % Eos % (Auto) % Baso % (Auto) % Immature Gran # (Auto) (0.00-0.02) K/uL Neut # (Auto) (1.4-6.5) K/uL Lymph # (Auto) (1.2-3.4) K/uL Hawkins # (Auto) (0.11-0.59) K/uL Eos # (Auto) (0-0.5) K/uL Baso # (Auto) (0-0.2) K/uL PT (9.0-12.0) Seconds INR (0.9-1.1) APTT (21.0-31.0) Seconds PTT Ratio Sodium (136-145) mmol/L Potassium (3.5-5.1) mmol/L Chloride (98-107) mmol/L Carbon Dioxide (21-32) mmol/L Anion Gap (3-11) BUN (7-18) mg/dl Creatinine (0.6-1.4) mg/dl Est Cr Clr Drug Dosing ml/min Est GFR ( Amer) Est GFR (Non-Af Amer) BUN/Creatinine Ratio (10-20) Glucose (70-99) mg/dl POC Glucose 296 H (70-99) Calcium (8.5-10.1) mg/dl Magnesium (1.8-2.4) mg/dl Total Bilirubin (0.2-1) mg/dl AST (15-37) U/L ALT (12-78) U/L Alkaline Phosphatase (45-117) U/L Troponin I (0-0.045) ng/ml NT-Pro-B Natriuret Pep (0-900) pg/ml Total Protein (6.4-8.2) gm/dl Albumin (3.4-5.0) gm/dl Globulin (2.5-4.0) gm/dl Albumin/Globulin Ratio (0.9-2) Procalcitonin (0-0.5) ng/ml Imaging Data Attestation: I personally reviewed and interpreted this imaging study as fo llows: Radiologist's Impression: CT ANGIOGRAM OF THE CHEST CLINICAL HISTORY: Shortness of breath. Possible pulmonary embolism. COMPARISON STUDY: Chest x-ray dated 06/13/2018 TECHNIQUE: Following the IV administration of 95 mL of Optiray-320, CT angiogram of the thorax was performed from the thoracic inlet to the lung bases utilizing the pulmonary embolus protocol. Images are reviewed in the axial, sagittal, and coronal planes. IV contrast was administered without complication. MIP imaging was performed. A dose lowering technique was utilized adhering to the principles of ALARA. CT DOSE: 333.70 mGy.cm FINDINGS: No pathologically enlarged axillary mediastinal or hilar lymph nodes were visualized. There is mild ectasia of the ascending thoracic aorta which measures 4 cm. There were no pulmonary artery filling defects to indicate acute pulmonary embolism. There is a small right pleural effusion. There is pulmonary emphysema. There are extensive right upper lobe airspace opacities, most likely secondary to pneumonia. There are dependent right lower lobe atelectatic changes. IMPRESSION: 1. No evidence of acute pulmonary embolism 2. Small right pleural effusion 3. Extensive right upper lobe airspace opacities likely secondary to a pneumonia. Films subsequent to treatment are recommended in follow-up. 4. Emphysema Electronically signed by: Barry Melendez, XR chest 1V portable CLINICAL HISTORY: SOB COMPARISON STUDY: 04/19/2018 FINDINGS: Since the prior study, the patient has developed extensive right upper lobe airspace opacities and to a lesser extent right lower lung zone airspace opacities. There is underlying emphysema. The left lung is clear. There is a trace right pleural effusion.[ IMPRESSION: Extensive right lung airspace opacities, likely secondary to pneumo miles. Trace right pleural effusion. Films subsequent to treatment are recommended in follow-up. Electronically signed by: Barry Melendez M.D. 06/13/2018 11:59 AM ECG Data Attestation: I personally reviewed and interpreted this ECG as follows: Indication: SOB/dyspnea Rate (beats per minute): 82 Rhythm: normal sinus Findings: + other (Normal Beggs); no ST depression, no ST elevation and no acute ischemic change Blood Pressure Blood Pressure Findings: Normal blood pressure Blood Pressure Disposition: further management by hospitalist FRANCIA Mims The patient is a pleasant 73 y/o gentleman with a pmhx of CAD, CHF, HTN, COPD, O SA who presents to the emergency department with worsening cough, congestion, sob with yellow sputum production over the past week per HPI. On arrival the patient is ill appearing but in NAD, AF, VSS but O2 saturation low 90s on recent baseline 5L NC, which was recently increased several weeks ago. On exam the patient has Rhonchi throughout right lungs field with scattered wheezes throughout. 3+ BLE edema, which patient reports is new. EKG without evidence of acute ischemia. CXR with patchy right lung field infiltrates c/w PNA. WBC wnl. H/H 10/32.8 without recent values for comparison. Chemistry without acidosis. Cr wnl. Troponin negative. BNP wnl. Procal 0.05 CT-PE negative for PE and further demonstrates extensive right upper lobe opacities c/w PNA. Thus reasonable to admit patient for further management given his numerous comorbidities and severity of sx despite his home O2. Treated with steroids, duoneb, and Levaquin. Case d/w Dr. Rao, [facility] hospitalist, who will evaluate the patient for admission. Impression & Plan Pneumonia Discharge Plan Visit Data *Final* Discharge Date/Time: 06/13/18 14:45 Chief Complaint: Shortness of Breath/Dyspnea Stated Complaint: BREATHING PROBLEMS ED Provider: Aamir Camp Discharge Problem: Pneumonia Patient Disposition: Still a Patient Discharge Instructions Interventions: ED Discharge Assessment Last Done: 06/13/18 14:45 The scribe's documentation has been prepared under my direction and personally reviewed by me in its entirety. I confirm that the note above accurately reflects all work, treatment, procedures, and medical decision making performed by me.
[2018-06-14] MEDS: LEVALBUTEROL HCL 1.25 MG/3 ML NEB NEB SCH ×4 (02:00→19:07)
[2018-06-14] MEDS: DOXYCYCLINE HYCLATE 100 MG in DEXTROSE 5% 100 ML IV SCH ×2 (05:35→17:58)
[2018-06-14 07:33] LABS: Hematocrit (blood only) 33.8 % (42-52); Hemoglobin 10.7 g/dL (14.0-18.0); Mean Corpuscular Hgb Conc 31.7 g/dL (32-36); Mean Corpuscular Volume 91.1 fL (80-100); Mean Platelet Volume 10.3 fL (7.4-10.4); Platelet Count 275 K/uL (130-400); RDW Coefficient of Variation 14.9 % (11.5-14.5); Red Blood Count 3.71 M/uL (4.7-6.1); White Blood Count 6.69 K/uL (4.8-10.8)
[2018-06-14] MEDS: dilTIAZem HCL 180 MG CAPCR PO SCH (07:50)
[2018-06-14] MEDS: FERROUS SULFATE 325 MG TAB PO SCH (07:51)
[2018-06-14] MEDS: ASPIRIN 81 MG ECTAB PO SCH (07:51)
[2018-06-14] MEDS: MAGNESIUM OXIDE 400 MG TAB PO SCH ×2 (07:52→21:23)
[2018-06-14] MEDS: guaiFENesin 600 MG TABCR PO SCH ×2 (07:53→21:23)
[2018-06-14] MEDS: BENZONATATE 100 MG CAPSULE PO SCH ×3 (07:53→21:24)
[2018-06-14] MEDS: TIOTROPIUM BROMIDE 5 PUFF/90 MCG INH INH SCH (07:54)
[2018-06-14] MEDS: cefTRIAXone SODIUM 1,000 MG/50 ML BAG IV SCH (07:54)
[2018-06-14] MEDS: INSULIN ASPART 100 UNITS/ML 3 ML PEN SC SCH ×4 (08:05→21:22)
[2018-06-14 08:09] LABS: Albumin Globulin Ratio 0.7 (0.9-2); Albumin Level 2.8 gm/dl (3.4-5.0); BUN Creatinine Ratio 25.4 (10-20); Bilirubin,Total 0.2 mg/dl (0.2-1); Creatinine Clr Calc Pharmacy 63.8 ml/min; Est GFR (African American) 73.8; Est GFR (Non-African American) 63.7; Globulin 3.9 gm/dl (2.5-4.0); Potassium 4.9 mmol/L (3.5-5.1); Total Protein 6.7 gm/dl (6.4-8.2)
[2018-06-14] MEDS ORDERED: FUROSEMIDE 40 MG TAB PO SCH (09:00)
[2018-06-14] MEDS: INSULIN GLARGINE SOLOSTAR 100 UNITS/ML 3 ML PEN SC SCH ×2 (09:32→21:21)
[2018-06-14] MEDS: LEVOFLOXACIN/D5W 750 MG/150 ML BAG IV SCH (13:53)
[2018-06-14] MEDS ORDERED: FUROSEMIDE 40 MG TAB PO ONE (17:39)
[2018-06-14] MEDS: ENOXAPARIN INJ 40 MG/0.4 ML SYR SQ SCH (17:59)
[2018-06-14] MEDS: methylPREDNISolone 80 MG in SYRINGE 0 ML IV SCH (18:39)
--- NOTE | 2018-06-14 20:25 | Ultrasound Report ---
ULTRASOUND BILATERAL LOWER EXTREMITY VENOUS CLINICAL HISTORY: Lower extremity edema. COMPARISON STUDY: No priors. TECHNIQUE: Real-time, grayscale, and color Doppler sonography of the deep veins of the right and left lower extremity was performed from the inguinal crease to the calf. Compression and augmentation wer e utilized. FINDINGS: There is no sonographic evidence of deep venous thrombosis identified in the right or left lower extremity. The common femoral, superficial femoral, and popliteal veins are patent and normally compressible bilaterally. The greater saphenous vein and the profunda femoris vein at the junction w ith the common femoral vein are clear in both legs. The visualized calf veins are patent bilaterally. IMPRESSION: There is no sonographic evidence of deep venous thrombosis identified in the right or lef t lower extremity. Electronically signed by: Devan Irene M.D. 06/14/2018 8:24 PM
--- NOTE | 2018-06-14 20:41 | Hospitalist Progress Note ---
Date of Service June 14, 2018 Assessment & Plan (1) Acute exacerbation of chronic obstructive pulmonary disease (COPD): cont steroids, nebs, inhalers, mucinex, pulmonary toilet with incentive spirometry. (2) Pneumonia: RUL - community-acquired vs aspiration; GNR etiology less likely. looking back at films from 2018 he had pneumonia in the right upper lung as well. could he have obstructing lesion in that location ? aspiration ? other anatomical issue setting him up for recurrent pneumonia ? poor bronch candidate currently on rocephin, doxy, and levaquin stop levaquin cont rocephin & Doxy (3) Chronic respiratory failure with hypoxia: on home o2 continuously 2nd to severe COPD (4) CHF (congestive heart failure): follows w/ I do not have echo to see if this is diastolic, right-sided or left-sided he does not look overtly volume overloaded edema could be one of several issues - see below (5) DM type 2 (diabetes mellitus, type 2): cont basal-bolus regimen & adjust as needed (6) CAD (coronary artery disease): no ischemic sx's at this time (7) Hypertension: control adequate (8) Edema: could be from CHF (right sided disease) vs DVT vs med side effect (diltiazem) vs other check dopplers, r/o DVT make his lasix daily rather than QOD try to get echo from (9) DVT prophylaxis: lovenox daily PT,OT left message for daughter Carmen on her cell phone voicemail Subjective patient states he feels a little better than yesterday still w/ cough, wheeze, and sob also c/o edema has lost at least 10 pounds in the last 1-2 months tele stable overnight Constitutional: no fever, no chills and no anorexia Respiratory: + cough, + sputum production and + wheezing; no hemoptysis Cardiovascular: no chest pain Gastrointestinal: no abdominal pain Physical Exam Vital Signs (Past 24 Hours): Last Vital Signs Temp 37.0 C 06/14/18 19:41 Pulse 78 06/14/18 19:41 Resp 18 06/14/18 19:41 BP 148/53 H 06/14/18 19:41 Pulse Ox 92 06/14/18 19:41 Constitutional: well developed, well nourished and average body habitus; no acute distress, not ill appearing and no altered mental status ENMT: external ear and nose normal, oropharynx normal Respiratory: normal respiratory effort Auscultation: + diminished lung sounds and + wheezes; no crackles Cardiovascular: Rate/Rhythm: regular rate and regular rhythm Heart Sounds: normal S1 and normal S2; no murmur Vessels: posterior tibial pulses present and dorsalis pedis pulses present; no JVD Extremities: + edema (feet/ankles) Gastrointestinal (Abdomen): normal bowel sounds, soft, nontender, no hepatosplenomegaly Psychiatric: A+Ox3, euthymic affect (1) Pneumonia Laterality: right Lung location: upper lobe of lung Pneumonia type: due to unspecified organism Qualified Code(s): J18.1 - Lobar pneumonia, unspecified organism
[2018-06-14] MEDS: ADVAIR INH SCH (21:20)
[2018-06-14] MEDS: ATORVASTATIN 20 MG TAB PO SCH (21:23)
[2018-06-15] MEDS: LEVALBUTEROL HCL 1.25 MG/3 ML NEB NEB SCH ×4 (02:16→19:48)
--- NOTE | 2018-06-15 03:28 | Consultation Report ---
DATE OF CONSULTATION: 06/14/2018 PULMONARY MEDICINE CONSULTATION REASON FOR CONSULTATION: Community-acquired pneumonia, right upper lobe in a patient with severe COPD. 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 His primary care physician is Dr. Diaz Thomas. He has been on oxygen at 3 liters continually for some time now and is a patient of Dr. Whiteside with the pulmonary group locally. He has become progressively more dyspneic and week and was recently increased to 5 liters by nasal cannula in the clinic and then discharged. He came in to our ER with progressive symptoms and was given a dose of IV Levaquin and then admitted to the hospitalist service. He has been on prophylactic azithromycin Monday, Monday and Monday and had a mild leukocytosis on admission. PFTs done on 05/30/2018 showed severe obstruction with an FEV1 that was under 1 liter. The FEV1/FVC ratio was 34%. He has been on a chronic diuretic in the form of spironolactone for bilateral lower extremity edema. He has been administered IV Lasix. Cardiology consultation was obtained. There is also a history of ischemic cardiomyopathy. He stopped smoking in 2014, having started in his teens and apparently had a bout of acute hypoxic respiratory failure requiring intubation and a prolonged stay on a mechanical ventilator. He states he was hospitalized for full 28 days. He has a history of pulmonary hypertension in addition to CHF, SVT, diabetes, ischemic and hypertensive cardiomyopathy, peripheral neuropathy and severe O2 dependent COPD. He has also been treated for sleep apnea. He has recently been placed on Mucinex b.i.d. as a mucolytic. He is extremely dyspneic even with modest exertion. He was taken off spironolactone [address] Enrique and placed on candesartan. He has noted progressive edema over the past several weeks. Denies pleuritic pain or hemoptysis. He was also recently started on additional agents for diabetes and was followed both by Dr. Whiteside and Melissa Simpson in our clinic. He has been on Advair Diskus inhaler and Spiriva Respimat in addition to having a nebulizer at home. For details of past medical history, medications, family and social history, I refer you to current and past record. PHYSICAL EXAMINATION: GENERAL: Reveals a friendly, well-developed, well-nourished white male appearing stable at rest. VITAL SIGNS: Blood pressure 147/64, pulse 71 and regular, respiratory rate 18, temperature 36.8, O2 sat 95% on 5 liters. SKIN: Without lesion. HEENT: Atraumatic, normocephalic, PERRLA, EOMI. Conjunctivae pale. Sclerae nonicteric. Fundi poorly visualized. NECK: Neck veins are not distended at 45 degrees. No evidence of adenopathy in the supra or infraclavicular areas. LUNGS: Marked hyperresonance with expiratory wheezes, most notable in the right posterior hemithorax. CARDIAC: Sinus tachycardia. I do not appreciate a gallop. ABDOMEN: Soft, protuberant. No evidence of hepatosplenomegaly. EXTREMITIES: 2+ pitting edema. No clubbing. Peripheral cyanosis. NEUROLOGIC: Intact. No lateralizing signs. LABORATORY DATA: White count 6600, H and H 10.7 and 33.8. CTA obtained in the ER was reviewed and showed no evidence of pulmonary thromboembolic disease. A small right pleural effusion was noted. Marked pulmonary emphysema. There are extensive right upper lobe airspace opacities, cannot rule out an underlying mass, although doubtful, and right lower lobe atelectatic changes. Chest x-ray reviewed from 12/14/2017 shows diffuse parenchymal infiltrates, right mid to lower lung zone. Five weeks later, chest x-ray showed improved aeration of the right upper lobe and lateral segments, right middle lobe with minimal residual airspace opacities suggesting postinflammatory scarring with persistent pneumonia in the differential. Emphysema with chronic interstitial coarsening was noted. Chest x-ray on 04/09/2018 does show clearing of the focal pulmonary consolidation. Sputum culture is growing heavy normal elijah. Blood cultures have been negative to date. Glucose levels have been on the high 200 range. Urine for legionella antigen not detected. OVERALL ASSESSMENT: A 73-year-old white male with severe O2-dependent chronic obstructive pulmonary disease with previous bout of acute hypoxic respiratory failure, now admitted with dense consolidation right upper lobe, superimposed on severe emphysema/chronic obstructive pulmonary disease. The patient clearly requires aerosolized bronchodilator, IV Solu-Medrol with careful attention to glucose monitoring and would continue current broad-spectrum antibiotic coverage. Given the persistence of symptoms and radiographic appearance, the patient would normally require additional evaluation including bronchoscopic intervention, but at this point I do not believe he would tolerate any kind of procedural analysis to rule out an endobronchial obstruction or neoplasm. The clearance of the right upper lobe and right middle lobe infiltrates from December on April film was reassuring. I just suspect that given poorly-controlled diabetes and his underlying lung disease, that the patient is a candidate for recurrent infection. I had a lengthy discussion with both he and his daughter, an RN and we will increase the dosing of the steroid therapy to his regimen along with continued antibiotic coverage. MTDD
[2018-06-15] MEDS: DOXYCYCLINE HYCLATE 100 MG in DEXTROSE 5% 100 ML IV SCH ×2 (04:37→17:08)
[2018-06-15] MEDS: FERROUS SULFATE 325 MG TAB PO SCH (08:08)
[2018-06-15] MEDS: dilTIAZem HCL 180 MG CAPCR PO SCH (08:08)
[2018-06-15] MEDS: cefTRIAXone SODIUM 1,000 MG/50 ML BAG IV SCH (08:08)
[2018-06-15] MEDS: guaiFENesin 600 MG TABCR PO SCH ×2 (08:08→21:14)
[2018-06-15] MEDS: MAGNESIUM OXIDE 400 MG TAB PO SCH ×2 (08:08→21:15)
[2018-06-15] MEDS: BENZONATATE 100 MG CAPSULE PO SCH ×3 (08:08→21:14)
[2018-06-15] MEDS: ASPIRIN 81 MG ECTAB PO SCH (08:08)
[2018-06-15] MEDS: TIOTROPIUM BROMIDE 5 PUFF/90 MCG INH INH SCH (08:09)
[2018-06-15] MEDS: CANDESARTAN PO SCH (08:10)
[2018-06-15] MEDS: methylPREDNISolone 80 MG in SYRINGE 0 ML IV SCH ×3 (08:10→17:08)
[2018-06-15] MEDS: ADVAIR INH SCH ×2 (08:12→21:16)
[2018-06-15] MEDS: FUROSEMIDE 40 MG TAB PO SCH (08:13)
[2018-06-15 08:15] LABS: Hemoglobin 11.3 g/dL (14.0-18.0); Mean Corpuscular Hgb Conc 32.3 g/dL (32-36); Mean Platelet Volume 9.7 fL (7.4-10.4); Platelet Count 330 K/uL (130-400); RDW Coefficient of Variation 15.2 % (11.5-14.5); RDW Standard Deviation 50.2 fL (36.4-46.3); Red Blood Count 3.89 M/uL (4.7-6.1); White Blood Count 11.97 K/uL (4.8-10.8)
[2018-06-15] MEDS: INSULIN GLARGINE SOLOSTAR 100 UNITS/ML 3 ML PEN SC SCH ×2 (08:19→21:15)
[2018-06-15] MEDS: INSULIN ASPART 100 UNITS/ML 3 ML PEN SC SCH ×4 (08:20→21:16)
[2018-06-15] MEDS ORDERED: INSULIN GLARGINE SOLOSTAR 100 UNITS/ML 3 ML PEN SC ONE (08:45)
[2018-06-15 08:53] LABS: Potassium 4.1 mmol/L (3.5-5.1)
[2018-06-15 08:54] LABS: Albumin Level 3.1 gm/dl (3.4-5.0); BUN Creatinine Ratio 27.6 (10-20); Calcium 8.8 mg/dl (8.5-10.1); Creatinine Clr Calc Pharmacy 51.7 ml/min; Est GFR (African American) 57.2; Est GFR (Non-African American) 49.3; Magnesium 2.4 mg/dl (1.8-2.4)
[2018-06-15 08:57] LABS: Albumin Globulin Ratio 0.8 (0.9-2); Bilirubin,Total 0.3 mg/dl (0.2-1); Globulin 3.9 gm/dl (2.5-4.0)
--- NOTE | 2018-06-15 11:22 | Progress Note ---
DATE: 06/15/2018 PULMONARY MEDICINE PROGRESS NOTE Chart reviewed, the patient examined. SUBJECTIVE: The patient feels better, less congested, ambulating to the bathroom and hallway without difficulty. Sputum relatively clear. No hemoptysis, no pleuritic pain. OBJECTIVE: VITAL SIGNS: Blood pressure 148/76, pulse 68 and regular, respiratory rate 16, temperature 36.5, O2 sat 91% on 3 liters. SKIN: Without lesion. HEENT: Atraumatic, normocephalic. PERRLA. LUNGS: Less wheezing audible and distant P and A. CARDIAC: Regular rate and rhythm. No murmurs or gallops. PMI nondisplaced. ABDOMEN: Soft, scaphoid. No evidence of hepatosplenomegaly. EXTREMITIES: Trace to +1 pitting edema and no clubbing or cyanosis. ASSESSMENT AND PLAN: I reviewed previous films and there was clearing in late April of the right upper and middle lobe infiltrates. I do not see a discernible mass on the most recent CT scan of the chest, so my concerns about an endobronchial obstruction or postobstructive pneumonia are much less. I would continue the patient on his Advair Diskus inhaler and use of his nebulizer, slowly taper his steroids up to 48-72 hours go with oral antibiotics. We will follow this weekend while hospitalized.
[2018-06-15] MEDS: ENOXAPARIN INJ 40 MG/0.4 ML SYR SQ SCH (17:08)
--- NOTE | 2018-06-15 18:31 | Hospitalist Progress Note ---
Date of Service June 15, 2018 Assessment & Plan (1) Acute exacerbation of chronic obstructive pulmonary disease (COPD): Improving -cont steroids and taper down to Solu Medrol 60mg IV q8h -continue nebs, inhalers, mucinex, pulmonary toilet with incentive spirometry. Appreciate Pulm consult (2) Pneumonia: RUL - community-acquired looking back at films from 2017 he had pneumonia in the right upper lung as well. But then films from Apr were clear of PNA, no masses on chest CT 06/2018 as per Pulm review as well Pulm does not feel likely to have obstructing lesion in that location poor bronch candidate due to severe COPD -continue rocephin, doxy-day #3 -Appreciate Pulm consult (3) Chronic respiratory failure with hypoxia: on home o2 continuously 5 LNC 2nd to severe COPD (4) CHF (congestive heart failure): follows w/ I do not have echo to see if this is diastolic, right-sided or left-sided he does not look overtly volume overloaded edema could be one of several issues - see below (5) DM type 2 (diabetes mellitus, type 2): With hyperglycemia-severe, secondary to corticosteroids -increase Lantus to 20 untis bid, increase SSI -tapering down steroids -follow accuchecks (6) CAD (coronary artery disease): no ischemic sx's at this time -continue ASA, statin (7) Hypertension: control adequate -continue diltiazem,lasix daily, and candesartan (8) Edema: could be from CHF (right sided disease) vs DVT vs med side effect (diltiazem) vs other Dopplers negative for DVT Improved todya with daily lasix try to get echo from (9) DVT prophylaxis: lovenox daily PT,OT Dispo-remain hospitalized Subjective Pt feeling a littl ebetter with his breathing. Still coughing mucus, no hemoptysis. No nausea, no CP, no abd pain, is making urine. No BM but that is not out of the ordinary for him. Tele with NSR, PVCs Review of Systems All systems reviewed & are unremarkable except as noted in HPI & below Physical Exam Vital Signs (Past 24 Hours): Last Vital Signs Temp 36.8 C 06/15/18 15:40 Pulse 65 06/15/18 16:00 Resp 18 06/15/18 15:40 BP 146/57 H 06/15/18 15:40 Pulse Ox 95 06/15/18 16:00 Constitutional: WD/WN, vitals as above Eyes: PERRL, conjunctivae normal, anicteric sclerae ENMT: external ear and nose normal, oropharynx normal Neck: trachea midline, no thyromegaly Respiratory: normal respiratory effort Auscultation: + crackles (at right middle lung field), + wheezes (faint, exp scattered bilat) and + bronchial breath sounds (at right upper lung field) Cardiovascular: Rate/Rhythm: regular rate and regular rhythm Heart Sounds: no murmur Extremities: + edema (trace pitting edema distal legs bilat) Gastrointestinal (Abdomen): normal bowel sounds, soft, nontender, no hepatosplenomegaly Musculoskeletal: Extremities: extremities normal to inspection; no cyanosis and no clubbing Skin: no rashes, warm and dry Neurologic: moves all extremities and awake; no focal motor deficits Psychiatric: A+Ox3, euthymic affect Results & Data Laboratory Results 06/15/18 06/15/18 06/15/18 Range/Units 16:51 16:50 11:39 WBC (4.8-10.8) K/uL RBC (4.7-6.1) M/uL Hgb (14.0-18.0) g/dL Hct (42-52) % MCV (80-100) fL MCH (25-34) pg MCHC (32-36) g/dL RDW Std Deviation (36.4-46.3) fL RDW Coeff of Arnoldo (11.5-14.5) % Plt Count (130-400) K/uL MPV (7.4-10.4) fL Sodium (136-145) mmol/L Potassium (3.5-5.1) mmol/L Chloride (98-107) mmol/L Carbon Dioxide (21-32) mmol/L Anion Gap (3-11) BUN (7-18) mg/dl Creatinine (0.6-1.4) mg/dl Est Cr Clr Drug Dosing ml/min Est GFR ( Amer) Est GFR (Non-Af Amer) BUN/Creatinine Ratio (10-20) Glucose (70-99) mg/dl POC Glucose 331 H 368 H* 262 H (70-99) Calcium (8.5-10.1) mg/dl Magnesium (1.8-2.4) mg/dl Total Bilirubin (0.2-1) mg/dl AST (15-37) U/L ALT (12-78) U/L Alkaline Phosphatase (45-117) U/L Total Protein (6.4-8.2) gm/dl Albumin (3.4-5.0) gm/dl Globulin (2.5-4.0) gm/dl Albumin/Globulin Ratio (0.9-2) 06/15/18 06/15/18 06/15/18 Range/Units 08:01 08:01 07:47 WBC 11.97 H (4.8-10.8) K/uL RBC 3.89 L (4.7-6.1) M/uL Hgb 11.3 L (14.0-18.0) g/dL Hct 35.0 L (42-52) % MCV 90.0 (80-100) fL MCH 29.0 (25-34) pg MCHC 32.3 (32-36) g/dL RDW Std Deviation 50.2 H (36.4-46.3) fL RDW Coeff of Arnoldo 15.2 H (11.5-14.5) % Plt Count 330 (130-400) K/uL MPV 9.7 (7.4-10.4) fL Sodium 138 (136-145) mmol/L Potassium 4.1 D (3.5-5.1) mmol/L Chloride 98 (98-107) mmol/L Carbon Dioxide 34 H (21-32) mmol/L Anion Gap 6.0 (3-11) BUN 39 H (7-18) mg/dl Creatinine 1.42 H (0.6-1.4) mg/dl Est Cr Clr Drug Dosing 51.7 ml/min Est GFR ( Amer) 57.2 Est GFR (Non-Af Amer) 49.3 BUN/Creatinine Ratio 27.6 H (10-20) Glucose 229 H (70-99) mg/dl POC Glucose 258 H (70-99) Calcium 8.8 (8.5-10.1) mg/dl Magnesium 2.4 (1.8-2.4) mg/dl Total Bilirubin 0.3 (0.2-1) mg/dl AST 22 (15-37) U/L ALT 24 (12-78) U/L Alkaline Phosphatase 59 (45-117) U/L Total Protein 7.0 (6.4-8.2) gm/dl Albumin 3.1 L (3.4-5.0) gm/dl Globulin 3.9 (2.5-4.0) gm/dl Albumin/Globulin Ratio 0.8 L (0.9-2) 06/14/18 Range/Units 20:24 WBC (4.8-10.8) K/uL RBC (4.7-6.1) M/uL Hgb (14.0-18.0) g/dL Hct (42-52) % MCV (80-100) fL MCH (25-34) pg MCHC (32-36) g/dL RDW Std Deviation (36.4-46.3) fL RDW Coeff of Arnoldo (11.5-14.5) % Plt Count (130-400) K/uL MPV (7.4-10.4) fL Sodium (136-145) mmol/L Potassium (3.5-5.1) mmol/L Chloride (98-107) mmol/L Carbon Dioxide (21-32) mmol/L Anion Gap (3-11) BUN (7-18) mg/dl Creatinine (0.6-1.4) mg/dl Est Cr Clr Drug Dosing ml/min Est GFR ( Amer) Est GFR (Non-Af Amer) BUN/Creatinine Ratio (10-20) Glucose (70-99) mg/dl POC Glucose 125 H (70-99) Calcium (8.5-10.1) mg/dl Magnesium (1.8-2.4) mg/dl Total Bilirubin (0.2-1) mg/dl AST (15-37) U/L ALT (12-78) U/L Alkaline Phosphatase (45-117) U/L Total Protein (6.4-8.2) gm/dl Albumin (3.4-5.0) gm/dl Globulin (2.5-4.0) gm/dl Albumin/Globulin Ratio (0.9-2) (1) Pneumonia Laterality: right Lung location: upper lobe of lung Pneumonia type: due to unspecified organism Qualified Code(s): J18.1 - Lobar pneumonia, unspecified organism
[2018-06-15] MEDS ORDERED: INSULIN ASPART 100 UNITS/ML 3 ML PEN SC ONE (21:15)
[2018-06-15] MEDS: ATORVASTATIN 20 MG TAB PO SCH (21:15)
[2018-06-16] MEDS: LEVALBUTEROL HCL 1.25 MG/3 ML NEB NEB SCH ×4 (01:53→19:57)
[2018-06-16 07:57] LABS: Albumin Level 2.9 gm/dl (3.4-5.0); BUN Creatinine Ratio 35.4 (10-20); Calcium 8.6 mg/dl (8.5-10.1); Creatinine Clr Calc Pharmacy 61.4 ml/min; Est GFR (African American) 70.1; Est GFR (Non-African American) 60.5; Potassium 4.2 mmol/L (3.5-5.1)
[2018-06-16 08:00] LABS: Albumin Globulin Ratio 0.8 (0.9-2); Bilirubin,Total 0.2 mg/dl (0.2-1); Globulin 3.6 gm/dl (2.5-4.0); Total Protein 6.5 gm/dl (6.4-8.2)
[2018-06-16] MEDS: TIOTROPIUM BROMIDE 5 PUFF/90 MCG INH INH SCH (08:19)
[2018-06-16] MEDS: ADVAIR INH SCH ×2 (08:19→20:33)
[2018-06-16] MEDS: MAGNESIUM OXIDE 400 MG TAB PO SCH ×2 (08:20→20:34)
[2018-06-16] MEDS: guaiFENesin 600 MG TABCR PO SCH ×2 (08:20→20:33)
[2018-06-16] MEDS: BENZONATATE 100 MG CAPSULE PO SCH ×3 (08:20→20:34)
[2018-06-16] MEDS: dilTIAZem HCL 180 MG CAPCR PO SCH (08:20)
[2018-06-16] MEDS: DOXYCYCLINE HYCLATE 100 MG CAP PO SCH ×2 (08:20→19:13)
[2018-06-16] MEDS: FERROUS SULFATE 325 MG TAB PO SCH (08:20)
[2018-06-16] MEDS: CANDESARTAN PO SCH (08:21)
[2018-06-16] MEDS: FUROSEMIDE 40 MG TAB PO SCH (08:21)
[2018-06-16] MEDS: ASPIRIN 81 MG ECTAB PO SCH (08:21)
[2018-06-16] MEDS: methylPREDNISolone 60 MG in SYRINGE 0 ML IV SCH ×3 (08:22→16:39)
[2018-06-16] MEDS: cefTRIAXone SODIUM 1,000 MG/50 ML BAG IV SCH (08:22)
[2018-06-16] MEDS: INSULIN GLARGINE SOLOSTAR 100 UNITS/ML 3 ML PEN SC SCH (08:33)
[2018-06-16] MEDS: INSULIN ASPART 100 UNITS/ML 3 ML PEN SC SCH ×4 (08:34→20:34)
[2018-06-16] MEDS ORDERED: INSULIN GLARGINE SOLOSTAR 100 UNITS/ML 3 ML PEN SC STA (09:12)
--- NOTE | 2018-06-16 11:48 | Progress Note ---
DATE: 06/16/2018 PULMONARY MEDICINE PROGRESS NOTE Chart reviewed, patient examined. SUBJECTIVE: Sitting by bedside, feeling well. Still complaining of edematous lower extremities. He has compression stockings on and the pneumatic stockings. He feels that the latter has actually increased the swelling in his ankles and the feet. He has been advised to elevate his legs whenever possible while in bed. He was quite concerned about the suggestion that he be ready to go to be discharged. He does not think he is ready to do so. OBJECTIVE: CURRENT VITAL SIGNS: Blood pressure 149/72, pulse 71 and regular, respiratory rate 18, temperature 36.8, O2 sat 95% on 5 liters. SKIN: Without lesion. HEENT: Atraumatic, normocephalic. PERRLA. LUNGS: Scattered wheeze bilaterally, right greater than left, better air entry to the bases, still quite hyperresonant. CARDIAC: Regular rate and rhythm. I do not appreciate a gallop. ABDOMEN: Soft, protuberant. EXTREMITIES: +1 to +2 pedal edema bilaterally. NEUROLOGIC: Intact. No lateralizing signs. LABORATORY DATA: Current white count 11,000, H and H 11.3 and 35. Glucose levels have been in the high 300s. BUN 43, creatinine 1.2. Venous Doppler study was negative for DVT. Sputum grew out normal elijah. OVERALL ASSESSMENT: A 73-year-old with severe end-stage chronic obstructive pulmonary disease, oxygen dependent, with a right upper lobe pneumonitis, cannot rule out an endobronchial obstruction or a neoplastic process, but it would seem less likely with clearance of his chest x-ray late April of this year. The patient would not tolerate the endoscopic or bronchoscopic evaluation, and I would continue current therapy with slow reduction of the patient's steroid therapy. Would continue diuresis, but gently as there is always a potential of plummeting someone's blood pressure if most of the edema we are seeing is from cor pulmonale, and elevate the legs, avoid salt intake and mobilize the patient with ambulation in the hallway with portable oxygen.
[2018-06-16] MEDS: ENOXAPARIN INJ 40 MG/0.4 ML SYR SQ SCH (16:38)
--- NOTE | 2018-06-16 16:56 | Hospitalist Progress Note ---
Date of Service June 16, 2018 Assessment & Plan (1) Acute exacerbation of chronic obstructive pulmonary disease (COPD): Improving slowly -cont steroids at Solu Medrol 60mg IV q8h today and slow taper downward -continue nebs, inhalers, mucinex, pulmonary toilet with incentive spirometry. Appreciate Pulm consult (2) Pneumonia: RUL - community-acquired looking back at films from 2018 he had pneumonia in the right upper lung as well. But then films from Apr were clear of PNA, no masses on chest CT 06/2018 as per Pulm review as well Pulm does not feel likely to have obstructing lesion in that location poor bronch candidate due to severe COPD -continue rocephin, doxy po-day #4 -Appreciate Pulm consult -will need to ensure radiographic resolution of infiltrate with xray in 4-6 weeks (3) Chronic respiratory failure with hypoxia: on home o2 continuously 5 LNC 2nd to severe COPD -will attempt to wean to 4L today -discussed with RN (4) CHF (congestive heart failure): follows w/ Discussed with Dr. Enrique today about obtaining latest ECHO to see if this is diastolic, right-sided or left-sided Edema todya likely pushed down into feet from the legs by the SCDs -daily lasix (5) DM type 2 (diabetes mellitus, type 2): With hyperglycemia-severe, secondary to corticosteroids, slightly improved today but persists -increase Lantus again to 25 units bid, increase SSI again -tapered down steroids yesterday -follow accuchecks (6) CAD (coronary artery disease): no ischemic sx's at this time -continue ASA, statin (7) Hypertension: control adequate -continue diltiazem,lasix daily, and candesartan (8) Edema: could be from CHF (right sided disease) vs med side effect (diltiazem) vs other. Dopplers negative for DVT Improved with increasing to daily lasix from every other day Dr. Enrique kind enough to obtain latest ECHO report for me (9) DVT prophylaxis: lovenox daily PT,OT Dispo-remain hospitalized Get ambulating today, check POx with ambulation-discussed with RN Subjective Pt feeling a little better today. Still feels he is wheezing at times, not much cough. Feels like he wants to try to go for a walk. Also his feet are very swollen today but legs are not and thinks it's from the SCDs he wore last night No chest pains. Tele with NSR, PVCs, small runs VT 3 beats Review of Systems All systems reviewed & are unremarkable except as noted in HPI & below Physical Exam Vital Signs (Past 24 Hours): Last Vital Signs Temp 36.7 C 06/16/18 15:15 Pulse 67 06/16/18 16:00 Resp 18 06/16/18 15:15 BP 133/63 06/16/18 15:15 Pulse Ox 96 06/16/18 16:00 Constitutional: WD/WN, vitals as above Eyes: PERRL, conjunctivae normal, anicteric sclerae ENMT: Ears: no hearing impairment and no external ear abnormality Neck: trachea midline, no thyromegaly Respiratory: normal respiratory effort Auscultation: + crackles (at right middle lung field), + wheezes (faint, exp scattered bilat) and + bronchial breath sounds (at right upper lung field) Cardiovascular: Rate/Rhythm: regular rate and regular rhythm Heart Sounds: no murmur Extremities: + edema (no edema in legs, but with 2+ pitting edema just on dorsal feet bilat) Gastrointestinal (Abdomen): normal bowel sounds, soft, nontender, no hepatosplenomegaly Musculoskeletal: Extremities: no cyanosis and no clubbing Skin: no rashes, warm and dry Neurologic: moves all extremities and awake; no focal motor deficits Psychiatric: A+Ox3, euthymic affect Results & Data Laboratory Results 06/16/18 06/16/18 06/16/18 Range/Units 11:52 07:46 06:22 Sodium 140 (136-145) mmol/L Potassium 4.2 (3.5-5.1) mmol/L Chloride 101 (98-107) mmol/L Carbon Dioxide 35 H (21-32) mmol/L Anion Gap 4.0 (3-11) BUN 43 H (7-18) mg/dl Creatinine 1.20 (0.6-1.4) mg/dl Est Cr Clr Drug Dosing 61.4 ml/min Est GFR ( Amer) 70.1 Est GFR (Non-Af Amer) 60.5 BUN/Creatinine Ratio 35.4 H (10-20) Glucose 201 H (70-99) mg/dl POC Glucose 271 H 223 H (70-99) Calcium 8.6 (8.5-10.1) mg/dl Total Bilirubin 0.2 (0.2-1) mg/dl AST 17 (15-37) U/L ALT 22 (12-78) U/L Alkaline Phosphatase 56 (45-117) U/L Total Protein 6.5 (6.4-8.2) gm/dl Albumin 2.9 L (3.4-5.0) gm/dl Globulin 3.6 (2.5-4.0) gm/dl Albumin/Globulin Ratio 0.8 L (0.9-2) 06/15/18 Range/Units 20:23 Sodium (136-145) mmol/L Potassium (3.5-5.1) mmol/L Chloride (98-107) mmol/L Carbon Dioxide (21-32) mmol/L Anion Gap (3-11) BUN (7-18) mg/dl Creatinine (0.6-1.4) mg/dl Est Cr Clr Drug Dosing ml/min Est GFR ( Amer) Est GFR (Non-Af Amer) BUN/Creatinine Ratio (10-20) Glucose (70-99) mg/dl POC Glucose 316 H (70-99) Calcium (8.5-10.1) mg/dl Total Bilirubin (0.2-1) mg/dl AST (15-37) U/L ALT (12-78) U/L Alkaline Phosphatase (45-117) U/L Total Protein (6.4-8.2) gm/dl Albumin (3.4-5.0) gm/dl Globulin (2.5-4.0) gm/dl Albumin/Globulin Ratio (0.9-2) (1) Pneumonia Laterality: right Lung location: upper lobe of lung Pneumonia type: due to unspecified organism Qualified Code(s): J18.1 - Lobar pneumonia, unspecified organism
[2018-06-16] MEDS: ATORVASTATIN 20 MG TAB PO SCH (20:34)
[2018-06-16] MEDS ORDERED: INSULIN GLARGINE SOLOSTAR 100 UNITS/ML 3 ML PEN SC SCH (21:00)
[2018-06-17] MEDS: LEVALBUTEROL HCL 1.25 MG/3 ML NEB NEB SCH ×4 (02:16→19:48)
[2018-06-17] MEDS: DOXYCYCLINE HYCLATE 100 MG CAP PO SCH ×2 (06:07→19:33)
[2018-06-17] MEDS: INSULIN ASPART 100 UNITS/ML 3 ML PEN SC SCH ×4 (08:40→21:14)
[2018-06-17] MEDS: methylPREDNISolone 60 MG in SYRINGE 0 ML IV SCH ×3 (08:43→17:03)
[2018-06-17] MEDS: dilTIAZem HCL 180 MG CAPCR PO SCH (08:47)
[2018-06-17] MEDS: FERROUS SULFATE 325 MG TAB PO SCH (08:47)
[2018-06-17] MEDS: ASPIRIN 81 MG ECTAB PO SCH (08:47)
[2018-06-17] MEDS: MAGNESIUM OXIDE 400 MG TAB PO SCH ×2 (08:48→21:13)
[2018-06-17] MEDS: ADVAIR INH SCH ×2 (08:48→21:12)
[2018-06-17] MEDS: FUROSEMIDE 40 MG TAB PO SCH (08:48)
[2018-06-17] MEDS: guaiFENesin 600 MG TABCR PO SCH ×2 (08:48→21:13)
[2018-06-17] MEDS: CANDESARTAN PO SCH (08:49)
[2018-06-17] MEDS: TIOTROPIUM BROMIDE 5 PUFF/90 MCG INH INH SCH (08:49)
[2018-06-17] MEDS: BENZONATATE 100 MG CAPSULE PO SCH ×3 (08:50→21:13)
[2018-06-17] MEDS: cefTRIAXone SODIUM 1,000 MG/50 ML BAG IV SCH ×2 (08:52→09:22)
[2018-06-17] MEDS: INSULIN GLARGINE SOLOSTAR 100 UNITS/ML 3 ML PEN SC SCH ×2 (09:22→21:13)
--- NOTE | 2018-06-17 14:01 | Progress Note ---
DATE: 06/17/2018 Chart reviewed, the patient examined. SUBJECTIVE: The patient seemed to be making progress. He is less dyspneic and he has been ambulating in the hallway. OBJECTIVE: VITAL SIGNS: Blood pressure 150/78, pulse 71 and regular, respiratory rate 18, temperature 36.6, O2 sat 95% on 4 liters. SKIN: Without lesion. HEENT: Atraumatic, normocephalic. PERRLA. EOMI. Conjunctivae pink. Sclerae nonicteric. NECK: Neck veins are not distended at 45 degrees. LUNGS: Scattered wheeze, right posterior hemithorax, but definitely clearer than previous examinations. CARDIAC: Regular rate and rhythm. I do not appreciate a gallop. ABDOMEN: Soft, scaphoid. EXTREMITIES: No pedal edema, clubbing or cyanosis. NEUROLOGICAL: Intact. LABORATORY DATA: White count 11,000, H and H stable. OVERALL ASSESSMENT: The patient is showing clinical improvement. We will repeat a chest x-ray today, but believe that by tomorrow, he can be converted to oral steroids and antibiotics and discharged with followup in the clinic in 2-3 weeks.
[2018-06-17] MEDS: ENOXAPARIN INJ 40 MG/0.4 ML SYR SQ SCH (17:02)
--- NOTE | 2018-06-17 19:10 | Hospitalist Progress Note ---
Date of Service June 17, 2018 Assessment & Plan (1) Acute exacerbation of chronic obstructive pulmonary disease (COPD): Continues to improve today, dyspnea is at baseline he is ambulating the halls. -cont to taper down steroids-we will go down to Solu Medrol 40mg IV q8h today and transition to prednisone upon discharge hopefully tomorrow -continue nebs, inhalers from home, mucinex, pulmonary toilet with incentive spirometry. Appreciate Pulm consult -Patient specifically requesting to see Dr. Ren in follow-up as an outpatient-will need appointment arranged within 2 weeks -Continue antibiotics for pneumonia as below -Continue supplemental O2 as below (2) Pneumonia: RUL - community-acquired looking back at films from 2017 he had pneumonia in the right upper lung as well. But then films from Apr were clear of PNA, no masses on chest CT 06/2018 as per Pulm review as well Pulm does not feel likely to have obstructing lesion in that location poor bronch candidate due to severe COPD -continue rocephin, doxy po-day #5 of 7 -Can transition to p.o. cefdinir and continue p.o. doxycycline upon discharge tomorrow for 2 more days -Appreciate Pulm consult -will need to ensure radiographic resolution of infiltrate with xray in 4-6 weeks-this chest x-ray could be ordered at his outpatient pulmonary follow-up appointment -Checking chest x-ray in the morning as per pulmonology (3) Chronic respiratory failure with hypoxia: on home o2 continuously 5 LNC which was recently increased in the last few weeks Secondary to severe COPD He has now been weaned here to 4 L nasal cannula and is doing very well with this-pulse ox with ambulation dropped to 89% but recovered into the mid 90s with rest-he could likely be weaned to 3 L at rest and continue 4 L with ambulation upon discharge-he already has oxygen at home (4) DM type 2 (diabetes mellitus, type 2): With persistent severe hyperglycemia secondary to corticosteroids, improving again today with increased insulin yesterday Hemoglobin A1c not checked in over 6 months in our system -increase Lantus again to 28 units bid, increase SSI again today -Continue to taper down steroids -follow accuchecks -We will restart home metformin this evening at 1000 mg p.o. twice daily -When he goes home he will restart his dapagliflozin as well -We will plan to send him home with Lantus pens-dose to be determined prior to discharge-nurse will show him how to inject himself and he is agreeable to this -He will most likely be able to come off the Lantus when his steroid taper is completed -Check hemoglobin A1c in the morning (5) CAD (coronary artery disease): no ischemic sx's at this time -continue ASA, statin (6) Hypertension: control adequate -continue diltiazem,lasix daily, and candesartan (7) Edema: could be from CHF (right sided disease) vs med side effect (diltiazem) vs other. Dopplers negative for DVT Improved with increasing to daily lasix from every other day (8) WENDY (obstructive sleep apnea): Has been seen sleep medicine as an outpatient and has a CPAP ordered for him which he has not obtained yet -Advised him to follow-up with his sleep doctor about getting this delivered to the house (9) Pulmonary hypertension: Proven with right heart catheterization in the past with mild to moderate pulmonary hypertension with pulmonary artery pressure of 45 mmHg -Continue Lasix as below -Treating sleep apnea and COPD (10) Chronic diastolic CHF (congestive heart failure): follows w/ Dr.Fragin Dr. Contreras shared his office notes with me which report his last echocardiogram performed in [place] from 09/2014 showed normal LV size and function, LVEF 60- 65% with mild LVH, type I diastolic dysfunction, no regional wall motion abnormalities, dilated right ventricle with normal RV function and mild pulmonary hypertension Continues today with some edema in the ankles and feet as well as the forearm which may be from recent IV that infiltrated -Increased to daily Lasix here rather than every other day as per home dosing- with this upon discharge -He will restart his dapagliflozin upon discharge which also has a diuretic eff ect (11) DVT prophylaxis: lovenox daily PT,OT Dispo-remain hospitalized but can likely discharged home on Monday with steroid taper, Lantus. Has home oxygen already. Will need education on injecting with Lantus which will be new for him. He specifically requests follow-up with Dr. Ren upon discharge as Dr. Ren has been seeing him here in the hospital He will also need PCP follow-up Subjective Patient feeling better today. He has been ambulating the halls and does not feel short of breath. He reports his pulse ox goes down to 89% on 4 L nasal cannula with ambulation but quickly returns into the 90s with rest. He has a list of 11 questions for me today. All good questions and they were answered. Mostly having to do with his steroid regimen, antibiotic regimen, what to do with his diabetes meds and does he need insulin upon discharge, follow-up appointments, etc. He is willing to take Lantus at least temporarily for his blood sugars when he goes home and the nurse will teach him how to do that tonight. I discussed the case with pulmonology today. Telemetry with normal sinus rhythm with rates in the 60s. Physical Exam Vital Signs (Past 24 Hours): Last Vital Signs Temp 36.3 C L 06/17/18 15:18 Pulse 67 06/17/18 16:00 Resp 20 06/17/18 15:18 BP 151/68 H 06/17/18 15:18 Pulse Ox 95 06/17/18 16:00 Constitutional: WD/WN, vitals as above Eyes: PERRL, conjunctivae normal, anicteric sclerae ENMT: Ears: no hearing impairment and no external ear abnormality Neck: trachea midline, no thyromegaly Respiratory: normal respiratory effort Auscultation: + crackles (at right middle lung field), + wheezes (faint, exp scattered bilat, with improved air movement) and + bronchial breath sounds (at right upper lung field) Cardiovascular: Rate/Rhythm: regular rate and regular rhythm Heart Sounds: no murmur Extremities: + edema (Improved in legs with 1+ edema of the feet and ankles bilaterally, right arm with trace pitting edema in forearm) Gastrointestinal (Abdomen): normal bowel sounds, soft, nontender, no hepatosplenomegaly Musculoskeletal: Extremities: no cyanosis and no clubbing Skin: no rashes, warm and dry Neurologic: moves all extremities and awake; no focal motor deficits Psychiatric: A+Ox3, euthymic affect Results & Data Laboratory Results 06/17/18 06/17/18 06/17/18 Range/Units 16:18 11:59 07:54 POC Glucose 157 H 293 H 233 H (70-99) 06/16/18 Range/Units 20:25 POC Glucose 207 H (70-99) (1) Hypertension Hypertension type: essential hypertension Qualified Code(s): I10 - Essential (primary) hypertension (2) Pneumonia Laterality: right Lung location: upper lobe of lung Pneumonia type: due to unspecified organism Qualified Code(s): J18.1 - Lobar pneumonia, unspecified organism
[2018-06-17] MEDS: ATORVASTATIN 20 MG TAB PO SCH (21:12)
[2018-06-17] MEDS: METFORMIN HCL 500 MG TAB PO SCH (21:13)
[2018-06-18] MEDS: LEVALBUTEROL HCL 1.25 MG/3 ML NEB NEB SCH ×2 (02:00→07:10)
[2018-06-18 04:52] VITALS: O2SAT 94
[2018-06-18] MEDS: DOXYCYCLINE HYCLATE 100 MG CAP PO SCH (05:58)
[2018-06-18 06:19] LABS: Estimated Average Glucose 183 mg/dl
[2018-06-18 06:54] LABS: BUN Creatinine Ratio 44.4 (10-20); Creatinine Clr Calc Pharmacy 63.1 ml/min; Est GFR (African American) 71.5; Est GFR (Non-African American) 61.7; Potassium 4.4 mmol/L (3.5-5.1)
[2018-06-18 07:00] LABS: Calcium 8.1 mg/dl (8.5-10.1)
[2018-06-18 07:13] VITALS: TEMP 97.9
[2018-06-18] MEDS: dilTIAZem HCL 180 MG CAPCR PO SCH (07:46)
[2018-06-18] MEDS: BENZONATATE 100 MG CAPSULE PO SCH (07:46)
[2018-06-18] MEDS: guaiFENesin 600 MG TABCR PO SCH (07:46)
[2018-06-18] MEDS: FUROSEMIDE 40 MG TAB PO SCH (07:46)
[2018-06-18] MEDS: CANDESARTAN PO SCH (07:46)
[2018-06-18] MEDS: methylPREDNISolone 40 MG in SYRINGE 0 ML IV SCH ×2 (07:46→12:29)
[2018-06-18] MEDS: MAGNESIUM OXIDE 400 MG TAB PO SCH (07:46)
[2018-06-18] MEDS: TIOTROPIUM BROMIDE 5 PUFF/90 MCG INH INH SCH (07:46)
[2018-06-18] MEDS: METFORMIN HCL 500 MG TAB PO SCH (07:46)
[2018-06-18] MEDS: cefTRIAXone SODIUM 1,000 MG/50 ML BAG IV SCH ×2 (07:46→09:05)
[2018-06-18] MEDS: ASPIRIN 81 MG ECTAB PO SCH (07:46)
[2018-06-18] MEDS: FERROUS SULFATE 325 MG TAB PO SCH (07:46)
[2018-06-18] MEDS: ADVAIR INH SCH (07:47)
--- NOTE | 2018-06-18 08:23 | XRay Report ---
XR chest 2V routine CLINICAL HISTORY: Pneumonia. COMPARISON STUDY: Chest radiograph and chest CT June 13, 2018. FINDINGS: There are small bilateral pleural effusions. There is no pneumothorax. There is no evidence for pulmonary edema. Moderate right lung consolidation has mildly improved since exam of June 13 019. Cardiomediastinal silhouette is normal. IMPRESSION: 1. Mild improvement in right lung pneumonia. 2. Small bilateral pleural effusions. 3. Emphysema. Electronically signed by: Seth Sandy M.D. 06/18/2018 8:22 AM
[2018-06-18] MEDS: INSULIN ASPART 100 UNITS/ML 3 ML PEN SC SCH ×2 (09:04→12:29)
[2018-06-18] MEDS: INSULIN GLARGINE SOLOSTAR 100 UNITS/ML 3 ML PEN SC SCH (09:04)
[2018-06-18 11:15] VITALS: PULSE 71
[2018-06-18 12:22] VITALS: BP 150/78
--- NOTE | 2018-06-18 21:18 | Discharge Summary ---
Date of Service June 18, 2018 Admission HPI Per Admitting Provider This is a 73 yo M with PMHx of HTN, HLD, CHF, pulmonary hypertension, SVT, diabetes, CAD, ME, peripheral neuropathy, COPD on O2 chronically, sleep apnea and arthritis who presents with worsening shortness of breath over the last few days. The patient notes that he yellow thin mucus which she has been expectorating greatly at night, but contributes this to taking Mucinex 600 mg BID. He notes that he has recently had to increase his O2 requirement from 2 L to 3 L continuously, and within the past few days has been wearing 5 L at all times. The patient has been unable to participate in basic ADLs without feeling short of breath. He denies any fevers chills or sweats. Patient notes that he sleeps lying flat but wakes up multiple times at night to urinate and reports his cough and mucus expectoration have largely been keeping him awake. Patient was in to see Dr. Enrique ~2 weeks ago for routine cardiology follow-up and was taken off his spironolactone and placed on candesartan due to his blood pressure being well managed. Patient notes his legs have gotten significantly swollen in the last 2 weeks. He takes Lasix 20 mg every other day and last took this yesterday. He is also been recently started on dapaglifozin for DM. Patient notes that he has been taking azithromycin Monday for at least 2 months and follows with object oriented developer, Dr. whiteside/Melissa Simpson PA-C routinely. Principal Diagnosis Pneumonia and COPD exacerbation Discharge Exam Constitutional WD/WN, vitals as above well developed, well nourished and average body habitus; no acute distress, not ill appearing and no altered mental status Eyes PERRL, conjunctivae normal, anicteric sclerae normal visual lozoya by confrontation and + anicteric sclerae ENMT external ear and nose normal, oropharynx normal Ears: no hearing impairment and no external ear abnormality Neck trachea midline, no thyromegaly normal visual inspection and trachea midline Respiratory normal respiratory effort; no respiratory distress Auscultation: + diminished lung sounds, + crackles (at right middle lung field), + wheezes (faint, exp scattered bilat, with improved air movement) and + bronchial breath sounds (at right upper lung field) Cardiovascular Rate/Rhythm: regular rate and regular rhythm Heart Sounds: normal S1 and normal S2; no murmur Vessels: posterior tibial pulses present and dorsalis pedis pulses present; no JVD Extremities: + edema (Improved in legs with 1+ edema of the feet and ankles bilaterally, right arm with trace pitting edema in forearm) Gastrointestinal (Abdomen) normal bowel sounds, soft, nontender, no hepatosplenomegaly Inspection/Auscultation: abdomen not distended Percussion/Palpation: abdomen soft; abdomen nontender Musculoskeletal Head/Neck/Chest: normocephalic and head atraumatic Extremities: no cyanosis and no clubbing Skin no rashes, warm and dry Neurologic moves all extremities and awake; no focal motor deficits and not confused Speech / Cognition: normal speech Psychiatric A+Ox3, euthymic affect Discharge Data Allergies Allergy/AdvReac Type Severity Reaction Status Date / Time ALYSSA Inhibitors Allergy Unknown ANAPHYLAXIS Verified 06/13/18 12:18 Consultations 06/13/18 12:52 ED Decision to Admit Stat 06/13/18 14:11 Consult Case Management - Discharge Planning Routine 06/13/18 15:57 Consult Pulmonology Routine 06/13/18 16:37 Consult Case Management - Discharge Planning Routine Ordered Studies 06/13/18 12:22 CT angio chest PE protocol Stat 06/14/18 17:39 US venous doppler [facility] Urgent Hospital Course (1) Acute exacerbation of chronic obstructive pulmonary disease (COPD): Admitted for RUL pneumonia and COPD exacerbation. - Finished course of antibiotics in the hospital - 5 days. - Discharged on prednisone taper with follow up before he even finishes the steroid taper. (2) Pneumonia: RUL - community-acquired. Looking back at films from 2017 he had pneumonia in the right upper lung as well. But then films from Apr were clear of PNA, no masses on chest CT 06/2018 as per Pulm review as well. - Will follow up with outpatient pulm for repeat CXR in 4-6 weeks. - Poor bronch candidate due to severe COPD - CXR on discharge shows improving consolidation (3) Chronic respiratory failure with hypoxia: On home o2 continuously 5 LNC which was recently increased in the last few weeks - Secondary to severe COPD - He has now been weaned here to 4 L nasal cannula and is doing very well with this (4) DM type 2 (diabetes mellitus, type 2): With persistent severe hyperglycemia secondary to corticosteroids. - Discussed with pharmacist and discharged on NPH insulin with taper as he tapers steroids. (5) CAD (coronary artery disease): no ischemic sx's at this time -continue ASA, statin (6) Hypertension: control adequate -continue diltiazem,lasix daily, and candesartan (7) Edema: could be from CHF (right sided disease) vs med side effect (diltiazem) vs other. Dopplers negative for DVT. - Improved with increasing to daily lasix from every other day. - Will restart SGLT-2 on discharge for mild diuretic effect. (8) WENDY (obstructive sleep apnea): Has been seen sleep medicine as an outpatient and has a CPAP ordered for him which he has not obtained yet - Advised him to follow-up with his sleep doctor about getting this delivered to the house (9) Pulmonary hypertension: Proven with right heart catheterization in the past with mild to moderate pulmonary hypertension with pulmonary artery pressure of 45 mmHg. -Continue Lasix as below -Treating sleep apnea and COPD (10) Chronic diastolic CHF (congestive heart failure): Follows w/ Dr. Enrique. Dr. Enrique shared his office notes with me which report his last echocardiogram performed in [place] from 09/2014 showed normal LV size and function, LVEF 60-65% with mild LVH, type I diastolic dysfunction, no regional wall motion abnormalities, dilated right ventricle with normal RV function and mild pulmonary hypertension. - He will restart his dapagliflozin upon discharge which also has a diuretic effect. Total Time Total Time Spent Total Time Spent (In Minutes): 35 Total Time Includes: Examination of the Patient and Discharge Planning Discharge Plan Discharge Items Patient Disposition: Home - Self-Care Reason For Visit: PNEUMONIA Discharge Diagnosis: Pneumonia and COPD exacerbation Discharge Goals: Decrease discomfort, Improve disease control and Improve function Activity: Resume your previous activity Non-emergency contact: Primary Care Provider and Floriculture Teacher Call non-emergency contact if: you have any medication questions, your symptoms worsen and your pain is not controlled Follow-up/Referrals: [facility] Pulmonology [Provider Group] - 07/03/18 1:00 pm (Please, follow up at [facility] Pulmonology Office with Melissa Simpson PA-C on MondayJuly 03 at 1:00 pm. *This office is located in [address] of [facility] building next to this [facility]. If you need to change this appointment, call the office at [phone].) Diaz Thomas MD [Primary Care Provider] - 06/25/18 12:50 pm (Please, follow up at Dr. Thomas's office with his associate, Dr. Luciano, on MondayJune 25 at 12:50 pm. *If you need to change this appointment, call the office at [phone].) Diet: Heart Healthy Fluids: 2000ml (8 cups) Addtl Provider Instructions: Mr. Louie, You were admitted with a right lung pneumonia. You were treated with antibiotics and steroids, and felt better after a few days. We did a chest x-ray before your discharge that shows your pneumonia improving. Please follow up with your PCP and Dr. Howell's office to get a repeat x-ray in 4-6 weeks to be sure the area of the lung has healed and that something like a cancer is not present. We think this is unlikely as your chest x-ray in April was normal, but good follow up is important. Because your blood sugars get very high with steroids, we are discharging you on insulin. We are giving you a once-a-day insulin which will act while the steroid is in your system. Please take your insulin the same time as your steroid (prednisone) to ensure they work together to keep your sugars under control. Please take your first insulin shot and your first steroid tomorrow morning (06/19). Take: Prednisone 40mg by mouth for 3 days and insulin NPH 30 units for 3 days, then: Prednisone 30mg by mouth for 3 days and insulin NPH 25 units for 3 days, then: Prednisone 20mg by mouth for 3 days and insulin NPH 20 units for 3 days, then: Prednisone 10mg by mouth for 3 days and insulin NPH 15 units for 3 days, then: Then stop both your steroids and your insulin. Check your blood sugar in the morning and before dinner while you are on the insulin. If you feel shaky, clammy, restless, or have other concerning symptoms, please check your blood sugar to be sure it's not too low. If your morning blood sugars are <80, please call your family doctor before taking your insulin as you may need your dose reduced further or stopped all together. If you have more shortness of breath, wheezing, cough, fevers, chills, or other concerning symptoms, please call Dr. Howell's office or come to the hospital. Prescriptions: New prednisone 10 mg tablet 40 mg PO DAILY Qty: 30 RF: 0 Humulin N NPH Insulin KwikPen 100 unit/mL (3 mL) insulin pen 30 units SQ QAM Qty: 3 RF: 0 Continued atorvastatin 20 mg tablet 20 mg PO HS RF: 0 diltiazem HCl 360 mg capsule,extended release 24 hr 360 mg PO DAILY RF: 0 aspirin 81 mg Tablet,Delayed Release (Dr/Ec) 81 mg PO QAM RF: 0 metformin 1,000 mg tablet 1,000 mg PO BID RF: 0 nitroglycerin 0.4 mg tablet, sublingual 0.4 mg Sublingual DIRECTED PRN (Reason: Chest Pain) RF: 0 albuterol sulfate 90 mcg/actuation HFA aerosol inhaler 2 puff Inhalation QID PRN (Reason: Wheezing) RF: 0 fluticasone propion-salmeterol 230-21 mcg/actuation HFA aerosol inhaler 2 puff Inhalation BID RF: 0 ferrous sulfate 27 mg iron Tablet 1 tab PO DAILY RF: 0 candesartan 4 mg tablet 4 mg PO DAILY RF: 0 furosemide 20 mg tablet 2 tab PO DIRECTED RF: 0 guaifenesin 600 mg Tablet Extended Release 12hr 600 mg PO Q12H RF: 0 dapagliflozin 5 mg Tablet 5 mg PO DAILY RF: 0 magnesium oxide 500 mg Tablet 2 tab PO BID RF: 0 Spiriva Respimat 2.5 mcg/actuation Mist 2 puff INHALATION DAILY RF: 0 Discontinued azithromycin 250 mg tablet 250 mg PO DIRECTED RF: 0 Stand-Alone Forms: [facility] Discharge Orders: Discharge Order (Routine); Ordered 06/18/18 Ordered By: Dave Penn Admission Data Admit Date/Time: 06/13/18 15:07 Attending Provider: Dave Penn Admit Provider: Melissa Rao Primary Care Provider: Diaz Thomas Other Providers: Abdifatah Whiteside ; Dave Penn Service: Telemetry Other Interventions: Discharge Summary Assessment (RN) Last Done: 06/18/18 12:22 DC Date/Time DO NOT enter until pt leaves facility: 06/18/18 14:11
== END 2018-06-18 14:11 | disposition home or self-care (01) | DRG 194 ==
LOC: ED 10:50 → 2N 14:45 → SUATTDRO 15:07 → 2N 15:07

== ENCOUNTER 2018-06-19 13:02 | Observation (INO) ==
[2018-06-19] MEDS ORDERED: ALBUT/IPRATROP 3MG/0.5MG NEB 3 ML VIAL NEB ONE (13:44)
--- NOTE | 2018-06-19 14:04 | XRay Report ---
XR chest 1V portable CLINICAL HISTORY: Chest Pain dyspnea COMPARISON STUDY: 06/18/2018 FINDINGS: Moderate improvement of a right midlung infiltrate. Mild persistent prominence of the pulmo nary vasculature. No evidence for pneumothorax. Diaphragms are smooth. IMPRESSION: Improving right midlung infiltrate. The above report was generated using voice recognition software. It may contain grammatical, syntax or spelling errors. Electronically signed by: Percy Landa M.D. 06/19/2018 2:03 PM
[2018-06-19 14:05] LABS: Hemoglobin 9.9 g/dL (14.0-18.0); Immature Granulocytes # (auto) 0.05 K/uL (0.00-0.02); Immature Granulocytes % (auto) 0.4 %; Lymphocytes # (auto) 0.59 K/uL (1.2-3.4); Lymphocytes % (auto) 5.2 %; Mean Corpuscular Hgb Conc 31.9 g/dL (32-36); Mean Corpuscular Volume 90.4 fL (80-100); Mean Platelet Volume 9.7 fL (7.4-10.4); Monocytes # (auto) 0.18 K/uL (0.11-0.59); Monocytes % (auto) 1.6 %; Neutrophils # (auto) 10.45 K/uL (1.4-6.5); Neutrophils % (auto) 92.8 %; Platelet Count 327 K/uL (130-400); RDW Coefficient of Variation 16.1 % (11.5-14.5); Red Blood Count 3.43 M/uL (4.7-6.1); White Blood Count 11.27 K/uL (4.8-10.8)
[2018-06-19 14:25] LABS: Alanine Aminotransferase 32 U/L (12-78); Aspartate Aminotransferase 20 U/L (15-37); BUN Creatinine Ratio 43.9 (10-20); Blood Urea Nitrogen 67 mg/dl (7-18); Calcium 8.3 mg/dl (8.5-10.1); Carbon Dioxide 32 mmol/L (21-32); Chloride 99 mmol/L (98-107); Creatinine Clr Calc Pharmacy 49.3 ml/min; Est GFR (African American) 52.3; Est GFR (Non-African American) 45.1; Glucose 295 mg/dl (70-99); Potassium 4.8 mmol/L (3.5-5.1); Sodium 136 mmol/L (136-145)
[2018-06-19 14:30] LABS: Alkaline Phosphatase 60 U/L (45-117); Bilirubin,Total 0.3 mg/dl (0.2-1); Creatine Kinase 202 U/L (39-308); Creatine Kinase MB 8.1 ng/ml (0.5-3.6); Globulin 3.1 gm/dl (2.5-4.0); NT Pro B Type Natriuretic Pept 428 pg/ml (0-900); Total Protein 6.1 gm/dl (6.4-8.2); Troponin I < 0.015 ng/ml (0-0.045)
[2018-06-19] MEDS ORDERED: SODIUM CHLORIDE 0.9% 1000ML 500 ML IV ONE (16:21)
--- NOTE | 2018-06-19 16:21 | History & Physical Report ---
Date of Service June 19, 2018 Assessment & Plan (1) Hyperglycemia: Due to steroids. Tapered from IV steroids to oral on dishcarge. - Continue oral steroid - Continue home oral meds - Continue NPH 30 units QAM - Sliding scale - Glycemic consult (2) DM type 2 (diabetes mellitus, type 2): A1c of 8.0% at last admission, so normally close to goal for his age. - Plan as above (3) RICHIE (acute kidney injury): Baseline Cr ~1.2 with admission Cr of 1.5. Likely pre-renal from Lasix and diuretic effect of his dapagliflozin and hyperglycemia. - Hold Lasix - 500mL bolus of IV fluids - Monitor Cr (4) Pneumonia: Seen on CXR on last admission in the [facility]. CXR on re-admission on 06/19 showed pneumonia improving. Received full 5-day course of antibiotics during last admission, so no antibiotics this admission as his breathing and CXR are both improving. - Monitor (5) COPD (chronic obstructive pulmonary disease): Severe COPD. [place] [facility] - Continue steroid taper from prior exacerbation - Continue home inhalers - DuoNebs or albuterol PRN - Continue home O2 4L (6) HTN (hypertension): BP was 160/70 in the ED. - Continue candesartan, diltiazem, and spironolactone (7) WENDY (obstructive sleep apnea): No home CPAP use. - Outpatient follow up (8) Chronic diastolic CHF (congestive heart failure): Last echo performed in [place] from 09/2014 showed normal LV size and function, LVEF 60-65% with mild LVH, type I diastolic dysfunction, no regional wall motion abnormalities, dilated right ventricle with normal RV function and mild pulmonary hypertension. - Appears euvolemic - Will hold furosemide for mild RICHIE - Monitor volume status (9) DVT prophylaxis: SCDs History of Present Illness Primary Care Provider: Diaz Thomas MD 73yo M w/ hx of COPD and DM who presents with hypo- and hyperglycemia after discharge. Patient was recently hospitalized for pneumonia and CODP exacerbation and was put on insulin on discharge to help counter-act the steroid effects. However, overnight yesterday, his sugars dropped to 56, and his daughter had him eat a snack. After the snack, his sugars were 70. He went to bed with a sugar of ~100, and he checked it again overnight and it was up to 200. This morning it was also ~200, so his daughter told him to take his metformin and the NPH insulin. However, at lunch-time, his sugar was 370. His PCP office told him to come to the ED, and his daughter requests that he be admitted to help correct his blood sugar. He reports some anxiety and shakiness with the low blood sugar yesterday evening, but otherwise reports that he has felt well. Denies polyuria, dysuria, polydipsia, or lightheadedness or dizziness. Allergies Allergy/AdvReac Type Severity Reaction Status Date / Time ALYSSA Inhibitors Allergy Unknown ANAPHYLAXIS Verified 06/19/18 14:30 Home Medications Home Medications Medication Instructions Recorded Confirmed Type albuterol sulfate 2 puff INHALATION Q4 PRN 12/14/17 06/19/18 History aspirin 81 mg PO QAM 12/14/17 06/19/18 History atorvastatin 20 mg PO HS 12/14/17 06/19/18 History diltiazem HCl 360 mg PO DAILY 12/14/17 06/19/18 History fluticasone propion-salmeterol 2 puff INHALATION Q12 12/14/17 06/19/18 History metformin 1,000 mg PO BID 12/14/17 06/19/18 History nitroglycerin 0.4 mg SUBLINGUAL DIRECTED PRN 12/14/17 06/19/18 History Spiriva Respimat 2 puff INHALATION DAILY 06/13/18 06/19/18 History candesartan 4 mg PO DAILY 06/13/18 06/19/18 History dapagliflozin 5 mg PO DAILY 06/13/18 06/19/18 History prednisone 40 mg PO DAILY #30 tab 06/18/18 06/19/18 Rx doxycycline hyclate 100 mg PO Q12 06/19/18 06/19/18 History furosemide 40 mg PO Q OTHER DAY 06/19/18 06/19/18 History insulin NPH isoph U-100 human 1 dose SUBCUT DIRECTED 06/19/18 06/19/18 History [Novolin N NPH U-100 Insulin] spironolactone 25 mg PO DAILY 06/19/18 06/19/18 History Past Med/Surg History Medical History Hypertension Hypoxia Community acquired pneumonia Pneumonia (Acute) Acute exacerbation of chronic obstructive pulmonary disease (COPD) (Acute) Hyperlipidemia CHF (congestive heart failure) Iron deficiency SVT (supraventricular tachycardia) DM type 2 (diabetes mellitus, type 2) CAD (coronary artery disease) COPD (chronic obstructive pulmonary disease) Cardiac disease Diabetes H/O pulmonary emphysema HTN (hypertension) History of arthritis History of cardioversion History of heart attack History of pneumonia Hypomagnesemia Peripheral neuropathy Sleep apnea Surgical History History of colonoscopy History of nasal surgery Status post cataract extraction of both eyes with insertion of intraocular lens Family History Other Brain tumor Depression Hypertension Stroke Social History Preferred Language: Vincentian Beliefs That Will Affect Care: None Current Living Situation: Alone Feels Safe at Home: Yes Smoking Status: Former smoker Hx Alcohol Use: Yes Hx Substance Use: No Review of Systems Constitutional: + malaise (With low blood sugar); no fever, no chills and no sweats Eyes: no diplopia Ear, Nose, Mouth, Throat: no ear trauma, no nasal discharge and no dental pain Respiratory: + dyspnea (Improving); no cough and no chest congestion Cardiovascular: no chest pain, no dyspnea on exertion, no palpitations and no syncope Gastrointestinal: no abdominal pain, no belching, no constipation, no diarrhea/loose stools, no blood in stools and no melena Musculoskeletal: no back pain, no joint pain and no muscle weakness Integumentary: no rash, no skin ulcer and no erythema Neurologic: no generalized weakness, no loss of sensation, no numbness and no paresthesia Psychiatric: no depression and no anxiety Endocrine: no fatigue, no polydipsia and no polyphagia Physical Exam Vital Signs (Past 24 Hours): Last Vital Signs Temp 36.6 C 06/19/18 13:13 Pulse 79 06/19/18 15:18 Resp 20 06/19/18 15:18 BP 158/67 H 06/19/18 15:18 Pulse Ox 100 06/19/18 15:18 Constitutional: WD/WN, vitals as above Eyes: EOM intact bilaterally; no conjunctival abnormality ENMT: external ear and nose normal, oropharynx normal Neck: trachea midline, no thyromegaly normal visual inspection Respiratory: no respiratory distress Auscultation: + wheezes (Very mild) Cardiovascular: RRR, no murmur, no edema Gastrointestinal (Abdomen): Inspection/Auscultation: abdomen normal to i nspection; abdomen not distended Musculoskeletal: no cyanosis or clubbing, extremities motor strength 5/5 Skin: no rashes, warm and dry Neurologic: moves all extremities and awake Psychiatric: Orientation: alert, oriented to person and cooperative (1) Pneumonia Laterality: right Lung location: upper lobe of lung Pneumonia type: due to unspecified organism Qualified Code(s): J18.1 - Lobar pneumonia, unspecified organism
[2018-06-19] MEDS ORDERED: GLUCOSE 40% GEL 15 GM TUBE PO PRN (17:07)
[2018-06-19] MEDS ORDERED: GLUCOSE 10 TABS/TUBE PO PRN (17:07)
[2018-06-19] MEDS ORDERED: DEXTROSE 50% 50 ML SYRINGE IV PRN (17:07)
[2018-06-19] MEDS ORDERED: ALBUTEROL HFA 8 GM INHALER INH PRN (17:07)
[2018-06-19] MEDS ORDERED: GLUCAGON FOR INJ 1 MG VIAL SQ PRN (17:07)
[2018-06-19] MEDS ORDERED: ACETAMINOPHEN 325 MG TAB PO PRN (17:07)
[2018-06-19] MEDS ORDERED: PHARMACY GLYCEMIC MGMT CONSULT PRN (18:24)
--- NOTE | 2018-06-19 19:06 | Emergency Department Note ---
Entered by Melissa Valentino acting as a scribe for Erwin Javier MD History of Present Illness General Chief complaint: Hypoglycemia Stated complaint: HYPERGLYCEMIA Time Seen by Provider: 06/19/18 13:33 Source: patient and family Mode of arrival: ambulatory Limitations: no limitations History of Present Illness Provider complaint: Hyperglycemia Severity: moderate Associated symptoms: + denies other symptoms and + fever/chills; no nausea/vomiting Patient is a 73 year old male presenting to the ED with hyperglycemia beginning yesterday. Patient states that he was recently discharged from [facility] yesterday, and did not have his Solumedrol while admitted. Daughter includes that patient was discharged and to start Metformin, but noticed BSG was in 50s and he was diaphoretic last night. She adds that patient did not take his Metformin after discharge, and had BSG of approximately 367 at 1100. BSG have been fluctuating, and daughter states patient was not informed in regards to new medication changes after discharge. Patient was on 87% O2 Sat while on 4L at home. Daughter shares patient has been on 3 L for the past 6 months due to pneumonia history. Patient shares he did use an inhaler and nebulizer this morning to help with sx. He denies any nausea, vomiting, diarrhea, numbness, CP, or any other complaints or concerns at this time. He denies having a home health care nurse to help with his sx. Home Medications Home Medications Medication Instructions Recorded Confirmed Type albuterol sulfate 2 puff INHALATION Q4 PRN 12/14/17 06/19/18 History aspirin 81 mg PO QAM 12/14/17 06/19/18 History atorvastatin 20 mg PO HS 12/14/17 06/19/18 History diltiazem HCl 360 mg PO DAILY 12/14/17 06/19/18 History fluticasone propion-salmeterol 2 puff INHALATION Q12 12/14/17 06/19/18 History metformin 1,000 mg PO BID 12/14/17 06/19/18 History nitroglycerin 0.4 mg SUBLINGUAL DIRECTED PRN 12/14/17 06/19/18 History Spiriva Respimat 2 puff INHALATION DAILY 06/13/18 06/19/18 History candesartan 4 mg PO DAILY 06/13/18 06/19/18 History dapagliflozin 5 mg PO DAILY 06/13/18 06/19/18 History prednisone 40 mg PO DAILY #30 tab 06/18/18 06/19/18 Rx doxycycline hyclate 100 mg PO Q12 06/19/18 06/19/18 History furosemide 40 mg PO Q OTHER DAY 06/19/18 06/19/18 History insulin NPH isoph U-100 human 1 dose SUBCUT DIRECTED 06/19/18 06/19/18 History [Novolin N NPH U-100 Insulin] spironolactone 25 mg PO DAILY 06/19/18 06/19/18 History Allergies Allergy/AdvReac Type Severity Reaction Status Date / Time ALYSSA Inhibitors Allergy Unknown ANAPHYLAXIS Verified 06/19/18 14:30 Past Med/Surg History Medical History Hypertension Hypoxia Community acquired pneumonia Pneumonia (Acute) Acute exacerbation of chronic obstructive pulmonary disease (COPD) (Acute) Hyperlipidemia CHF (congestive heart failure) Iron deficiency SVT (supraventricular tachycardia) DM type 2 (diabetes mellitus, type 2) CAD (coronary artery disease) COPD (chronic obstructive pulmonary disease) Cardiac disease Diabetes H/O pulmonary emphysema HTN (hypertension) History of arthritis History of cardioversion History of heart attack History of pneumonia Hypomagnesemia Peripheral neuropathy Sleep apnea Surgical History History of colonoscopy History of nasal surgery Status post cataract extraction of both eyes with insertion of intraocular lens Family History Other Brain tumor Depression Hypertension Stroke Social History Preferred Language: Malian Communication Ability: Effective [employer] Required: No Beliefs That Will Affect Care: None Current Living Situation: Alone Other Information That Helps Us Care for You: No Feels Safe at Home: Yes Safety Concerns: Feels Safe At This Time Smoking Status: Former smoker Hx Alcohol Use: Yes Hx Substance Use: No Review of Systems See HPI for pertinent positives & negatives. and A total of 10 systems reviewed and were otherwise negative Physical Exam Vital Signs Vital Signs - 24 hr 06/19/18 13:13 06/19/18 14:08 06/19/18 14:38 Temperature 36.6 C Temperature Source Oral Sepsis Recent Fever Within 48 Hours No Sepsis New/Unexplained Change in Mental Status No Sepsis Action Taken by Nursing No Action Required Pulse Rate 83 Pulse Rate [Apical] 75 73 Pulse Rate from SpO2 Sensor Respiratory Rate 20 16 16 Respiratory Effort / Characteristics Non-Labored Spontaneous Non-Labored Spontaneous Respiratory Depth Normal Blood Pressure 119/62 Blood Pressure [Left Arm] 162/55 H Blood Pressure Mean 81 Blood Pressure Mean [Left Arm] 90 Blood Pressure Position Sitting Blood Pressure Position [Left Arm] Pulse Oximetry 88 L 99 100 Oxygen Delivery Method Room Air Nasal Cannula Nebulizer Oxygen Flow Rate 4 4 8 06/19/18 15:00 06/19/18 15:18 06/19/18 15:20 Temperature Temperature Source Sepsis Recent Fever Within 48 Hours Sepsis New/Unexplained Change in Mental Status Sepsis Action Taken by Nursing Pulse Rate 77 82 Pulse Rate [Apical] 79 Pulse Rate from SpO2 Sensor 76 83 Respiratory Rate 18 20 21 Respiratory Effort / Characteristics Respiratory Depth Blood Pressure 158/67 H Blood Pressure [Left Arm] 158/67 H Blood Pressure Mean 97 Blood Pressure Mean [Left Arm] 97 Blood Pressure Position Blood Pressure Position [Left Arm] Pulse Oximetry 100 100 100 Oxygen Delivery Method Nasal Cannula Oxygen Flow Rate 3 06/19/18 15:30 06/19/18 16:00 06/19/18 16:30 Temperature Temperature Source Sepsis Recent Fever Within 48 Hours Sepsis New/Unexplained Change in Mental Status Sepsis Action Taken by Nursing Pulse Rate 79 80 79 Pulse Rate [Apical] Pulse Rate from SpO2 Sensor 79 80 79 Respiratory Rate 16 19 18 Respiratory Effort / Characteristics Respiratory Depth Blood Pressure Blood Pressure [Left Arm] Blood Pressure Mean Blood Pressure Mean [Left Arm] Blood Pressure Position Blood Pressure Position [Left Arm] Pulse Oximetry 98 96 99 Oxygen Delivery Method Oxygen Flow Rate 06/19/18 16:59 06/19/18 17:08 06/19/18 17:16 Temperature 36.5 C Temperature Source Oral Sepsis Recent Fever Within 48 Hours Sepsis New/Unexplained Change in Mental Status Sepsis Action Taken by Nursing Pulse Rate 80 Pulse Rate [Apical] 83 Pulse Rate from SpO2 Sensor Respiratory Rate 17 20 Respiratory Effort / Characteristics Non-Labored Spontaneous Respiratory Depth Normal Blood Pressure 152/79 H Blood Pressure [Left Arm] 148/53 H Blood Pressure Mean Blood Pressure Mean [Left Arm] 84 Blood Pressure Position Blood Pressure Position [Left Arm] Sitting Pulse Oximetry 98 93 Oxygen Delivery Method Nasal Cannula Nasal Cannula Nasal Cannula Oxygen Flow Rate 3 3 3 GENERAL: Patient is a healthy-appearing well-nourished HEAD: Normocephalic atraumatic EYES: Ocular movements intact pupils equal and react to light OROPHARYNX mucous membranes are moist no exudates present no erythema or edema present NECK: Supple no nuchal rigidity CHEST: Good equal expansion LUNGS: Wheezes bilaterally CARDIAC: Normal S1 and S2 ABDOMEN: Soft nontender no guarding BACK: No CVA tenderness EXTREMITIES: No pain upon palpation normal muscle strength in all groups no clubbing or cyanosis. +1 bilateral pitting edema NEURO: Patient is following commands is answering questions appropriately. Alert and oriented x3 Cranial Nerves 2-12 grossly intact Course 1340: Past medical records reviewed. The patient was evaluated in room C01B, and a complete history and physical examination were performed. 1514: Discussed case with Dr. Rao, who accepts patient for admission. Administered Medications Discontinued Medications Albuterol (Duoneb) 12 ml NEB ONE ONE Stop: 06/19/18 13:45 Last Admin: 06/19/18 14:08 Dose: 12 ml Documented by: [id number] Sodium Chloride (Nss 1000ml) 500 mls @ 999 mls/hr IV .Q31M ONE Stop: 06/19/18 16:51 Last Admin: 06/19/18 18:23 Dose: 999 mls/hr Documented by: [id number] Medical Decision Making Differential Diagnosis Differential diagnosis: Etiologies such as infections, reactive airway disease, pneumonia, pneumothorax, COPD, CHF, cardiac ischemia, pulmonary embolism, musculoskeletal, gastrointestinal, as well as others were entertained. Medical Records Attestation: I reviewed the patient's medical records. Home Medications Current Medication List: was personally reviewed by me Laboratory Data Attestation: I reviewed the patient's lab results. Result diagrams: 06/19/18 13:55 06/19/18 13:55 Lab Results 06/19/18 06/19/18 06/19/18 Range/Units 13:55 13:55 16:30 WBC 11.27 H (4.8-10.8) K/uL RBC 3.43 L (4.7-6.1) M/uL Hgb 9.9 L (14.0-18.0) g/dL Hct 31.0 L (42-52) % MCV 90.4 (80-100) fL MCH 28.9 (25-34) pg MCHC 31.9 L (32-36) g/dL RDW Std Deviation 53.0 H (36.4-46.3) fL RDW Coeff of Arnoldo 16.1 H (11.5-14.5) % Plt Count 327 (130-400) K/uL MPV 9.7 (7.4-10.4) fL Immature Gran % (Auto) 0.4 % Neut % (Auto) 92.8 % Lymph % (Auto) 5.2 % Mccone % (Auto) 1.6 % Eos % (Auto) 0.0 % Baso % (Auto) 0.0 % Immature Gran # (Auto) 0.05 H (0.00-0.02) K/uL Neut # (Auto) 10.45 H (1.4-6.5) K/uL Lymph # (Auto) 0.59 L (1.2-3.4) K/uL Mccone # (Auto) 0.18 (0.11-0.59) K/uL Eos # (Auto) 0.00 (0-0.5) K/uL Baso # (Auto) 0.00 (0-0.2) K/uL Sodium 136 (136-145) mmol/L Potassium 4.8 (3.5-5.1) mmol/L Chloride 99 (98-107) mmol/L Carbon Dioxide 32 (21-32) mmol/L Anion Gap 6.0 (3-11) BUN 67 H (7-18) mg/dl Creatinine 1.53 H D (0.6-1.4) mg/dl Est Cr Clr Drug Dosing 49.3 ml/min Est GFR ( Amer) 52.3 Est GFR (Non-Af Amer) 45.1 BUN/Creatinine Ratio 43.9 H (10-20) Glucose 295 H (70-99) mg/dl POC Glucose 259 H (70-99) Calcium 8.3 L (8.5-10.1) mg/dl Total Bilirubin 0.3 (0.2-1) mg/dl AST 20 (15-37) U/L ALT 32 (12-78) U/L Alkaline Phosphatase 60 (45-117) U/L Total Creatine Kinase 202 (39-308) U/L CK-MB (CK-2) 8.1 H (0.5-3.6) ng/ml CK/CKMB % Calc 4.0 H (0-3.0) Troponin I < 0.015 (0-0.045) ng/ml NT-Pro-B Natriuret Pep 428 (0-900) pg/ml Total Protein 6.1 L (6.4-8.2) gm/dl Albumin 3.0 L (3.4-5.0) gm/dl Globulin 3.1 (2.5-4.0) gm/dl Albumin/Globulin Ratio 1.0 (0.9-2) Lipase 89 (73-393) U/L Imaging Data Radiologist's Impression: XR chest 1V portable CLINICAL HISTORY: Chest Pain dyspnea COMPARISON STUDY: 06/18/2018 FINDINGS: Moderate improvement of a right midlung infiltrate. Mild persistent prominence of the pulmonary vasculature. No evidence for pneumothorax. Diaphragms are smooth. IMPRESSION: Improving right midlung infiltrate. The above report was generated using voice recognition software. It may contain grammatical, syntax or spelling errors. Electronically signed by: Percy Landa M.D. 06/19/2018 2:03 PM ECG Data Attestation: I personally reviewed and interpreted this ECG as follows: Indication: other (hyperglycemia) Rate (beats per minute): 77 Rhythm: normal sinus Findings: no ST depression and no ST elevation Blood Pressure Blood Pressure Findings: Normal blood pressure MDM Narrative 73-year-old male who presents emergency department complaining of pneumonia. Patient's daughter is concerned that the patient has been discharged prematurely. She is asking that the patient have a another admission. I strongly recommended the patient be admitted to [facility] for rehabilitation however they wish to be admitted to the hospital. I did discuss case with the hospitalist service who did agree to see the patient. Impression & Plan Pneumonia Discharge Plan Visit Data *Final* Discharge Date/Time: 06/19/18 16:59 Chief Complaint: Hypoglycemia Stated Complaint: HYPERGLYCEMIA ED Provider: Erwin Javier Discharge Problem: Pneumonia Patient Disposition: Admitted As Inpatient Discharge Instructions Interventions: ED Discharge Assessment Last Done: 06/19/18 16:59 Discharge Problem: Pneumonia Qualifiers: Pneumonia type: due to unspecified organism Laterality: unspecified laterality Lung location: unspecified part of lung Qualified Code(s): J18.9 - Pneumonia, unspecified organism The scribe's documentation has been prepared under my direction and personally reviewed by me in its entirety. I confirm that the note above accurately reflects all work, treatment, procedures, and medical decision making performed by me.
[2018-06-19] MEDS: INSULIN ASPART 100 UNITS/ML 3 ML PEN SC SCH ×2 (20:21→21:16)
[2018-06-19] MEDS ORDERED: METFORMIN HCL 500 MG TAB PO SCH (21:00)
[2018-06-19] MEDS: ATORVASTATIN 20 MG TAB PO SCH (21:15)
[2018-06-19] MEDS: ADVAIR INH SCH (22:52)
[2018-06-20] MEDS ORDERED: [UNRECOGNIZED DRUG - REMARK] SCH
[2018-06-20] MEDS: INSULIN ASPART 100 UNITS/ML 3 ML PEN SC SCH ×5 (00:48→18:45)
[2018-06-20 06:30] LABS: Hematocrit (blood only) 30.2 % (42-52); Hemoglobin 9.7 g/dL (14.0-18.0); Mean Corpuscular Hgb Conc 32.1 g/dL (32-36); Mean Corpuscular Volume 90.4 fL (80-100); Mean Platelet Volume 9.8 fL (7.4-10.4); Platelet Count 285 K/uL (130-400); RDW Coefficient of Variation 16.1 % (11.5-14.5); RDW Standard Deviation 53.1 fL (36.4-46.3); Red Blood Count 3.34 M/uL (4.7-6.1); White Blood Count 10.64 K/uL (4.8-10.8)
[2018-06-20 07:00] LABS: BUN Creatinine Ratio 48.6 (10-20); Calcium 7.7 mg/dl (8.5-10.1); Creatinine Clr Calc Pharmacy 69.9 ml/min; Est GFR (African American) 79.6; Est GFR (Non-African American) 68.7; Magnesium 2.4 mg/dl (1.8-2.4); Potassium 4.5 mmol/L (3.5-5.1)
[2018-06-20] MEDS ORDERED: INSULIN HUMAN NPH SC SCH (08:00)
[2018-06-20] MEDS: SPIRONOLACTONE 25 MG TAB PO SCH (08:53)
[2018-06-20] MEDS: predniSONE 10 MG TABLET PO SCH (08:54)
[2018-06-20] MEDS: dilTIAZem HCL 180 MG CAPCR PO SCH (08:54)
[2018-06-20] MEDS: ASPIRIN 81 MG ECTAB PO SCH (08:54)
[2018-06-20] MEDS: ADVAIR INH SCH ×2 (08:55→21:01)
[2018-06-20] MEDS: TIOTROPIUM BROMIDE 5 PUFF/90 MCG INH INH SCH (08:55)
[2018-06-20] MEDS: INSULIN HUMAN NPH SC SCH (09:03)
[2018-06-20] MEDS: CARBOHYDRATES FOR HYPOGLYCEMIA PO PRN ×2 (12:03→12:24)
[2018-06-20] MEDS: CANDESARTAN 4 MG PO SCH (13:58)
[2018-06-20] MEDS: ALBUT/IPRATROP 3MG/0.5MG NEB 3 ML VIAL NEB PRN ×2 (14:08→21:08)
--- NOTE | 2018-06-20 15:15 | Pharmacy Report ---
Glycemic Control Consultation - Date of Service June 20, 2018 - Scope Scope: Glycemic Pharmacist consulted by Dr Penn on 06/19/18 for glycemic control and to write orders per [facility] inpatient glycemic control protocol - Objective Weight: 90.9 kg Accuchecks BSG (last 24hrs): 06/19/18 06/19/18 06/20/18 16:30 20:12 00:06 Glucose POC Glucose 259 H 284 H 245 H 06/20/18 06/20/18 06/20/18 04:11 06:00 07:56 Glucose 108 H POC Glucose 141 H 99 06/20/18 06/20/18 06/20/18 11:58 12:00 12:21 Glucose POC Glucose 49 L* 49 L* 60 L* 06/20/18 06/20/18 12:39 14:31 Glucose POC Glucose 80 127 H Laboratory Data (last 24hrs): 06/20/18 06:00 Potassium 4.5 Carbon Dioxide 35 H Anion Gap 2.0 L Creatinine 1.08 Est Cr Clr Drug Dosing 69.9 HbA1c: 8.0 % 06/18/18 - Recent Pertinent Medications Outpatient Anti-diabetic Regimen: * Metfomin 1000 mg po BID & Farxiga 5 mg po Daily * A1c = 8.0 % 06/18/18 The patient is currently receiving: * Basal insulin: NPH 30 units every 24 hours * Correctional Insulin: Novolog Correction per scale ACHS Goal Range: Low 110 mg/dL - High 140 mg/dL Correction Factor: 20 mg/dL/unit * Prandial insulin: Per carb ratio of 1 unit per 6 grams CHO consumed * Oral Agents: Risk Factors for Insulin Resistance: * Steroids: Prednisone 40mg po Daily * Diet: T2DM - Assessment & Plan Assessment & Plan: ASSESSMENT: * Patient discharged 06/18/18 from [facility]. When he was admitted previously he has received Lantus 28 units BID. Discharged on NPH and readmitted due to blood sugar fluctuations. * AM blood sugar 99 mg/dL . He received 11 units Novolog to cover his meal intake. Lunchtime sugar was 49 mg/dL. Patient received orange juice and was rechecked. Blood sugars began trending up ----> 60/80/127. * Expect blood sugar to be within range due to carbohydrate coverage being removed. PLAN FOR INPATIENT GLYCEMIC CONTROL: * Restarting Metfomin 1000mg po BID * Basal insulin * NPH 30 units SQ Daily (patient receiving Prednisone 40 mg po Daily) * Bolus insulin * NovoLog per scale ACHS or Q6hrs while NPO * Goal Range: Low 110 mg/dL - High 140 mg/dL * Correction Factor: 20 mg/dL/unit * Dr. Penn discussed that he does not want carb coverage with Novolog. He plans to discharge patient in the next few days and wants to see how the NPH will control the patient. Novolog will be exclusively to cover for high blood sugars. * Please note that the plan above was derived based on current level of insulin resistance and hospital stress. These recommendations are appropriate for inpatient admission only. Plan of care upon discharge will need to be reassessed to avoid potential outpatient hypo/hyperglycemia. Thank you.
--- NOTE | 2018-06-20 16:08 | Hospitalist Progress Note ---
Date of Service June 20, 2018 Assessment & Plan (1) Hyperglycemia: Due to steroids. Tapered from IV steroids to oral on discharge from the hospital on last admission. - Continue oral steroid - Continue home oral meds - Continue NPH 30 units QAM - Sliding scale - Only with correction, no carb coverage. - Glycemic consult - Restart metformin tonight and dapaglifozin tomorrow (2) DM type 2 (diabetes mellitus, type 2): A1c of 8.0% at last admission, so normally close to goal for his age. - Plan as above (3) RICHIE (acute kidney injury): Baseline Cr ~1.2 with admission Cr of 1.5. Likely pre-renal from Lasix and diuretic effect of his dapagliflozin and hyperglycemia. - Hold Lasix - 500mL bolus of IV fluids - Monitor Cr (4) Pneumonia: Seen on CXR on last admission in the [facility]. CXR on re-admission on 06/19 showed pneumonia improving. Received full 5-day course of antibiotics during last admission, so no antibiotics this admission as his breathing and CXR are both improving. - Monitor (5) COPD (chronic obstructive pulmonary disease): Severe COPD. Follows with [facility] pulmonology. - Continue steroid taper from prior exacerbation - Continue home inhalers - DuoNebs or albuterol PRN - Continue home O2 4L (6) HTN (hypertension): BP was 160/70 in the ED. - Continue candesartan, diltiazem, and spironolactone (7) WENDY (obstructive sleep apnea): No home CPAP use. - Outpatient follow up (8) Chronic diastolic CHF (congestive heart failure): Last echo performed in [place] from 09/2014 showed normal LV size and function, LVEF 60-65% with mild LVH, type I diastolic dysfunction, no regional wall motion abnormalities, dilated right ventricle with normal RV function and mild pulmonary hypertension. - Appears euvolemic - Held furosemide for mild RICHIE on 06/20 - Restart at low dose on 06/21 - Monitor volume status (9) DVT prophylaxis: SCDs Subjective 73yo M w/ hx of COPD and DM who presents with hyperglycemia. Today feeling quite well. No major concerns. Reports no fevers/chills, chest pain, shortness of breath, abdominal pain, nausea, or vomiting. Physical Exam Vital Signs (Past 24 Hours): Last Vital Signs Temp 37 C 06/20/18 08:50 Pulse 75 06/20/18 14:10 Resp 16 06/20/18 14:10 BP 161/69 H 06/20/18 08:50 Pulse Ox 96 06/20/18 14:10 Constitutional: WD/WN, vitals as above Eyes: EOM intact bilaterally; no conjunctival abnormality ENMT: external ear and nose normal, oropharynx normal Neck: trachea midline, no thyromegaly normal visual inspection Respiratory: no respiratory distress Auscultation: + wheezes (Very mild) Cardiovascular: RRR, no murmur, no edema Gastrointestinal (Abdomen): Inspection/Auscultation: abdomen normal to inspec tion; abdomen not distended Musculoskeletal: no cyanosis or clubbing, extremities motor strength 5/5 Skin: no rashes, warm and dry Neurologic: moves all extremities and awake Psychiatric: Orientation: alert, oriented to person and cooperative (1) Pneumonia Laterality: right Lung location: upper lobe of lung Pneumonia type: due to unspecified organism Qualified Code(s): J18.1 - Lobar pneumonia, unspecified organism
[2018-06-20] MEDS: METFORMIN HCL 500 MG TAB PO SCH (18:48)
[2018-06-20] MEDS ORDERED: INSULIN ASPART 100 UNITS/ML 3 ML PEN SC SCH (21:00)
[2018-06-20] MEDS: ATORVASTATIN 20 MG TAB PO SCH (21:01)
[2018-06-21] MEDS: METFORMIN HCL 500 MG TAB PO SCH ×2 (07:45→17:44)
[2018-06-21] MEDS: SPIRONOLACTONE 25 MG TAB PO SCH (07:45)
[2018-06-21] MEDS: dilTIAZem HCL 180 MG CAPCR PO SCH (07:46)
[2018-06-21] MEDS: ASPIRIN 81 MG ECTAB PO SCH (07:46)
[2018-06-21] MEDS: predniSONE 10 MG TABLET PO SCH (07:46)
[2018-06-21] MEDS: ADVAIR INH SCH ×2 (07:46→20:14)
[2018-06-21] MEDS: TIOTROPIUM BROMIDE 5 PUFF/90 MCG INH INH SCH (07:46)
[2018-06-21] MEDS: CANDESARTAN 4 MG PO SCH (07:47)
[2018-06-21] MEDS: INSULIN HUMAN NPH SC SCH (07:51)
[2018-06-21 08:03] LABS: Hematocrit (blood only) 32.8 % (42-52); Hemoglobin 10.3 g/dL (14.0-18.0); Mean Corpuscular Hgb Conc 31.4 g/dL (32-36); Mean Corpuscular Volume 90.9 fL (80-100); Mean Platelet Volume 9.9 fL (7.4-10.4); Platelet Count 308 K/uL (130-400); RDW Coefficient of Variation 16.6 % (11.5-14.5); RDW Standard Deviation 54.8 fL (36.4-46.3); Red Blood Count 3.61 M/uL (4.7-6.1); White Blood Count 10.96 K/uL (4.8-10.8)
[2018-06-21 08:28] LABS: Creatinine Clr Calc Pharmacy 79.5 ml/min; Est GFR (Non-African American) 80.2; Magnesium 2.2 mg/dl (1.8-2.4); Potassium 4.7 mmol/L (3.5-5.1)
[2018-06-21] MEDS ORDERED: INSULIN HUMAN NPH SC SCH (09:00)
--- NOTE | 2018-06-21 09:20 | Pharmacy Report ---
Pharmacy Glycemic Short Note 2 - Date of Service June 21, 2018 - Glycemic Short BSG Results (Last 24 hours): 06/20/18 06/20/18 06/20/18 11:58 12:00 12:21 Glucose POC Glucose 49 L* 49 L* 60 L* 06/20/18 06/20/18 06/20/18 12:39 14:31 16:45 Glucose POC Glucose 80 127 H 121 H 06/20/18 06/20/18 06/21/18 18:51 19:45 07:22 Glucose 112 H POC Glucose 216 H 222 H 06/21/18 07:31 Glucose POC Glucose 125 H OUTPATIENT ANTIDIABETIC REGIMEN: * Metformin 1000mg PO BID * Farxiga 5mg PO daily * NPH taper along with prednisone taper * HbA1c: 8% (06/18/18) ASSESSMENT: * Mr Louie is a 73yo diabetic male who was admitted recently for pna/COPD exacerbation, and was discharged with NPH and a prednisone taper. Patient returned to the hospital d/t hyperglycemia. * Patient became hypoglycemic yesterday after receiving carb coverage with breakfast. * Patient is now receiving Novolog for correction of hyperglycemia ONLY, with no carb coverage. This morning, goal range was raised slightly and correction factor was "loosened" some to provide additional protection from hypoglycemia. * Patient is expected to be discharged with NPH only, so would like to see all insulin coverage coming from NPH during admission if possible. PLAN FOR INPATIENT GLYCEMIC CONTROL: * Hold outpatient oral diabetes medications * Metformin was resumed last evening -- Metformin 1gm PO BID with meals * Basal insulin * NPH taper corresponding with prednisone taper: When taking Prednisone 40mg daily ------------> NPH 30 units daily (~0.4 units/kg) When taking Prednisone 30mg daily ------------> NPH 25 units daily (~0.3 units/kg) When taking Prednisone 20mg daily ------------> NPH 15 units daily (~0.2 units/kg) When taking Prednisone 10mg daily ------------> NPH 10 units daily (~0.1 units/kg) When NOT taking Prednisone -------------------> do not take NPH * Bolus insulin * NovoLog per scale ACHS * Goal Range: Low 120 mg/dL - High 160 mg/dL * Correction Factor: 30 mg/dL/unit * Nutritional / Prandial insulin: none PLAN FOR DISCHARGE: * See above NPH taper which corresponds to prednisone taper. (Note: This differs slightly from previously ordered discharge regimen.) * NPH should be discontinued when prednisone therapy has been completed. * NPH should be administered at the same time as prednisone each day. * Recommend checking BSGs more frequently while on prednisone/NPH.
[2018-06-21] MEDS ORDERED: INSULIN ASPART 100 UNITS/ML 3 ML PEN SC SCH ×2 (11:30)
--- NOTE | 2018-06-21 13:11 | Hospitalist Progress Note ---
Date of Service June 21, 2018 Assessment & Plan (1) Hyperglycemia: Due to steroids. Tapered from IV steroids to oral on discharge from the hospital on last admission. - Continue oral steroid - Continue home oral meds - Continue NPH 30 units QAM - Sliding scale - Only with correction, no carb coverage. - Glycemic consult - Restarted metformin; restart dapaglifozin tomorrow (2) DM type 2 (diabetes mellitus, type 2): A1c of 8.0% at last admission, so normally close to goal for his age. - Plan as above (3) RICHIE (acute kidney injury): Baseline Cr ~1.2 with admission Cr of 1.5. Likely pre-renal from Lasix and diuretic effect of his dapagliflozin and hyperglycemia. - Held Lasix - Monitor Cr (4) Pneumonia: Seen on CXR on last admission in the [facility]. CXR on re-admission on 06/19 showed pneumonia improving. Received full 5-day course of antibiotics during last admission, so no antibiotics this admission as his breathing and CXR are both improving. - Monitor (5) COPD (chronic obstructive pulmonary disease): Severe COPD. Follows with [facility] pulmonology. - Continue steroid taper from prior exacerbation - Continue home inhalers - DuoNebs or albuterol PRN - Continue home O2 4L (6) HTN (hypertension): BP was 160/70 in the ED. - Continue candesartan, diltiazem, and spironolactone (7) WENDY (obstructive sleep apnea): No home CPAP use. - Outpatient follow up (8) Chronic diastolic CHF (congestive heart failure): Last echo performed in [place] from 09/2014 showed normal LV size and function, LVEF 60-65% with mild LVH, type I diastolic dysfunction, no regional wall motion abnormalities, dilated right ventricle with normal RV function and mild pulmonary hypertension. - Appears euvolemic - Held furosemide for mild RICHIE on 06/20 - Restart at low dose on 06/22 - Monitor volume status (9) DVT prophylaxis: SCDs Subjective 73yo M w/ hx of COPD and DM who presents with hyperglycemia. Today feeling quite well. No major concerns. Shortness of breath continues to improve. Reports no fevers/chills, chest pain, shortness of breath, abdominal pain, nausea, or vomiting. Physical Exam Vital Signs (Past 24 Hours): Last Vital Signs Temp 36.6 C 06/21/18 07:05 Pulse 65 06/21/18 07:05 Resp 18 06/21/18 07:05 BP 171/82 H 06/21/18 07:05 Pulse Ox 98 06/21/18 07:05 Constitutional: WD/WN, vitals as above Eyes: EOM intact bilaterally; no conjunctival abnormality ENMT: external ear and nose normal, oropharynx normal Neck: trachea midline, no thyromegaly normal visual inspection Respiratory: no respiratory distress Cardiovascular: RRR, no murmur, no edema Gastrointestinal (Abdomen): Inspection/Auscultation: abdomen normal to inspection; abdomen not distended Musculoskeletal: no cyanosis or clubbing, extremities motor strength 5/5 Skin: no rashes, warm and dry Neurologic: moves all extremities and awake Psychiatric: Orientation: alert, oriented to person and cooperative (1) Pneumonia Laterality: right Lung location: upper lobe of lung Pneumonia type: due to unspecified organism Qualified Code(s): J18.1 - Lobar pneumonia, unspecified organism
[2018-06-21] MEDS: ALBUT/IPRATROP 3MG/0.5MG NEB 3 ML VIAL NEB PRN (15:51)
[2018-06-21] MEDS: INSULIN ASPART 100 UNITS/ML 3 ML PEN SC SCH ×2 (17:45→20:11)
[2018-06-21] MEDS: ATORVASTATIN 20 MG TAB PO SCH (20:13)
[2018-06-22] MEDS ORDERED: INSULIN ASPART 100 UNITS/ML 3 ML PEN SC SCH (01:00)
[2018-06-22] MEDS: INSULIN ASPART 100 UNITS/ML 3 ML PEN SC SCH ×2 (08:13→12:06)
[2018-06-22] MEDS: SPIRONOLACTONE 25 MG TAB PO SCH (08:35)
[2018-06-22] MEDS: METFORMIN HCL 500 MG TAB PO SCH (08:35)
[2018-06-22] MEDS: ASPIRIN 81 MG ECTAB PO SCH (08:36)
[2018-06-22] MEDS: dilTIAZem HCL 180 MG CAPCR PO SCH (08:36)
[2018-06-22] MEDS: CANDESARTAN 4 MG PO SCH (08:37)
[2018-06-22 08:38] VITALS: BP 180/81; TEMP 97.7; O2SAT 98
[2018-06-22] MEDS: TIOTROPIUM BROMIDE 5 PUFF/90 MCG INH INH SCH (08:38)
[2018-06-22] MEDS: ADVAIR INH SCH (08:39)
[2018-06-22] MEDS ORDERED: INSULIN HUMAN NPH SC SCH ×2 (09:00)
[2018-06-22] MEDS ORDERED: predniSONE 10 MG TABLET PO SCH (09:00)
[2018-06-22] MEDS ORDERED: FUROSEMIDE 20 MG TAB PO SCH (09:00)
[2018-06-22] MEDS ORDERED: FARXIGA 5 MG PO SCH (09:00)
[2018-06-22 10:50] VITALS: PULSE 62
--- NOTE | 2018-06-22 15:14 | Discharge Summary ---
Date of Service June 22, 2018 Admission HPI Per Admitting Provider 73yo M w/ hx of COPD and DM who presents with hypo- and hyperglycemia after discharge. Patient was recently hospitalized for pneumonia and CODP exacerbation and was put on insulin on discharge to help counter-act the steroid effects. However, overnight yesterday, his sugars dropped to 56, and his daughter had him eat a snack. After the snack, his sugars were 70. He went to bed with a sugar of ~100, and he checked it again overnight and it was up to 200. This morning it was also ~200, so his daughter told him to take his metformin and the NPH insulin. However, at lunch-time, his sugar was 370. His PCP office told him to come to the ED, and his daughter requests that he be admitted to help correct his blood sugar. He reports some anxiety and shakiness with the low blood sugar yesterday evening, but otherwise reports that he has felt well. Denies polyuria, dysuria, polydipsia, or lightheadedness or dizziness. Principal Diagnosis Steroid-induced hyperglycemia Discharge Exam Constitutional WD/WN, vitals as above Eyes EOM intact bilaterally; no conjunctival abnormality ENMT external ear and nose normal, oropharynx normal Neck trachea midline, no thyromegaly normal visual inspection Respiratory no respiratory distress Auscultation: + wheezes (Very mild) Cardiovascular RRR, no murmur, no edema Gastrointestinal (Abdomen) Inspection/Auscultation: abdomen normal to inspection; abdomen not distended Musculoskeletal no cyanosis or clubbing, extremities motor strength 5/5 Skin no rashes, warm and dry Neurologic moves all extremities and awake Psychiatric Orientation: alert, oriented to person and cooperative Discharge Data Allergies Allergy/AdvReac Type Severity Reaction Status Date / Time ALYSSA Inhibitors Allergy Unknown ANAPHYLAXIS Verified 06/19/18 14:30 Consultations 06/19/18 15:08 ED Decision to Admit Stat Hospital Course (1) Hyperglycemia: Due to steroids. Tapered from IV steroids to oral on discharge from the hospital on last admission. - Discharged on NPH 30 units QAM -> Will likely need to tolerate blood sugars from 200-250 until off steroids. - Discharged with advice to continue both home DM meds as well (metformin and dapaglifozin) (2) DM type 2 (diabetes mellitus, type 2): A1c of 8.0% at last admission, so normally close to goal for his age. - Plan as above (3) RICHIE (acute kidney injury): Baseline Cr ~1.2 with admission Cr of 1.5. Likely pre-renal from Lasix and diuretic effect of his dapagliflozin and hyperglycemia. - Held Lasix until 06/22 - Cr returned to normal (1.0) by discharge. (4) Pneumonia: Seen on CXR on last admission in the [facility]. CXR on re-admission on 06/19 showed pneumonia improving. Received full 5-day course of antibiotics during last admission, so no antibiotics this admission as his breathing and CXR are both improving. - All hospitalization his breathing was good/improving. No abx on discharge. (5) COPD (chronic obstructive pulmonary disease): Severe COPD. Follows with [facility] [place] pulmonology. - Continue steroid taper from prior exacerbation - Continue home inhalers - DuoNebs or albuterol PRN - Continue home O2 4L (6) HTN (hypertension): BP was 160/70 in the ED. - Continued candesartan, diltiazem, and spironolactone (7) WENDY (obstructive sleep apnea): No home CPAP use. - Outpatient follow up (8) Chronic diastolic CHF (congestive heart failure): Last echo performed in [place] from 09/2014 showed normal LV size and function, LVEF 60-65% with mild LVH, type I diastolic dysfunction, no regional wall motion abnormalities, dilated right ventricle with normal RV function and mild pulmonary hypertension. - Appears euvolemic - Held furosemide for mild RICHIE on 06/20 - Restarted at low dose on 06/22 Total Time Total Time Spent Total Time Spent (In Minutes): 45 Total Time Includes: Examination of the Patient, Discharge Planning and Medication Reconciliation Discharge Plan Discharge Items Patient Disposition: Home - Self-Care Reason For Visit: HYPERGLYCEMIA Discharge Diagnosis: Hyperglycemia Discharge Goals: Diagnostic testing, Improve disease control and Increase independence Activity: Resume your previous activity Non-emergency contact: Primary Care Provider and Director Medicaid Call non-emergency contact if: you have any medication questions, your symptoms worsen, your pain is not controlled and your temperature is above 100.5 Follow-up/Referrals: Melissa Simpson PA-C [Physician Hand Tool Filer] - 07/03/18 1:00 pm (Please, follow up at [facility] Pul[facility] Office with Melissa Simpson PA-C on MondayJuly 03 at 1:00 pm. *This office is located in [address] of [facility] - big building next to this hospital. If you need to change this appointment, call the office at [phone].) Diaz Thomas MD [Primary Care Provider] - 06/25/18 12:50 pm (Please, follow up at Dr. Diaz Thomas' office with his associate, Dr. Papa Luciano, on MondayJune 25 at 12:50 pm. *If you need to change this appointment, call their office at [phone].) Diet: Carb Consistent or DM2 and Heart Healthy Addtl Provider Instructions: Mr. Louie, You were admitted with high & low blood sugars from the steroids for your pneumonia and COPD & your insulin regimen. Because your blood sugars got very high with steroids, we discharged you on insulin, but the regimen was not fine-tuned enough. We are giving you a once-a-day insulin which will act while the steroid is in your system. Please take your insulin the same time as your steroid (prednisone) to ensure they work together to keep your sugars under control. We thought that ~7am (or when you wake up) would be the best time. Please take your insulin shot and your steroid tomorrow morning (06/23). Take: Prednisone 30mg by mouth for 3 days and insulin NPH 25 units for 3 days, then: Prednisone 20mg by mouth for 3 days and insulin NPH 20 units for 3 days, then: Prednisone 10mg by mouth for 3 days and insulin NPH 15 units for 3 days, then: Then stop both your steroids and your insulin. As we discussed, if your sugars go too high, your daughter may want to increase the insulin by 5 units each time (but please check with your PCP first). On the flip side, if your sugars start to run low, please drop the insulin by 5 units each day. Check your blood sugar before giving yourself any insulin in the morning and then before each meal and before bed (5x/day) just while you are on the insulin. If you feel shaky, clammy, restless, or have other concerning symptoms, please check your blood sugar to be sure it's not too low. If your morning blood sugars are <80, please call your family doctor before taking your insulin as you may need your dose reduced further or stopped all together. Finally, I think you should probably lower your Lasix (furosemide) to 20mg every other day. You do have some swelling in your arms and legs, but your spironolactone & Farxiga both act as gentle diuretics. I worry that if you take 40mg every other day, it will cause dehydration. However, if you feel the swelling is getting worse, you can return to 40mg if your PCP agrees. If you have more shortness of breath, wheezing, cough, fevers, chills, or other concerning symptoms, please call Dr. Howell's office or come to the hospital. Please follow up with your PCP and Dr. Howell's office to get a repeat x-ray in 4-6 weeks to be sure the area of the lung has healed and that something like a cancer is not present. We think this is unlikely as your chest x-ray in April was normal, but good follow up is important. Prescriptions: Continued atorvastatin 20 mg tablet 20 mg PO HS RF: 0 diltiazem HCl 360 mg capsule,extended release 24 hr 360 mg PO DAILY RF: 0 aspirin 81 mg Tablet,Delayed Release (Dr/Ec) 81 mg PO QAM RF: 0 metformin 1,000 mg tablet 1,000 mg PO BID RF: 0 nitroglycerin 0.4 mg tablet, sublingual 0.4 mg Sublingual DIRECTED PRN (Reason: Chest Pain) RF: 0 albuterol sulfate 90 mcg/actuation HFA aerosol inhaler 2 puff Inhalation Q4 PRN (Reason: Wheezing) RF: 0 fluticasone propion-salmeterol 230-21 mcg/actuation HFA aerosol inhaler 2 puff Inhalation Q12 RF: 0 candesartan 4 mg tablet 4 mg PO DAILY RF: 0 dapagliflozin 5 mg Tablet 5 mg PO DAILY RF: 0 Spiriva Respimat 2.5 mcg/actuation Mist 2 puff INHALATION DAILY RF: 0 prednisone 10 mg tablet 40 mg PO DAILY Qty: 30 RF: 0 spironolactone 25 mg tablet 25 mg PO DAILY RF: 0 Novolin N NPH U-100 Insulin 100 unit/mL Suspension 1 dose SUBCUT DIRECTED RF: 0 Changed furosemide 20 mg tablet 20 mg PO Q OTHER DAY Qty: 0 RF: 0 Discontinued doxycycline hyclate 100 mg Capsule 100 mg PO Q12 RF: 0 Stand-Alone Forms: [facility] Discharge Orders: Discharge Order (Routine); Ordered 06/22/18 Ordered By: Dave Penn Admission Data Admit Date/Time: 06/19/18 16:04 Attending Provider: Dave Penn Admit Provider: Dave Penn Primary Care Provider: Diaz Thomas Other Providers: Melissa Rao Service: Medical Other Interventions: Discharge Summary Assessment (RN) Last Done: 06/22/18 10:47 DC Date/Time DO NOT enter until pt leaves facility: 06/22/18 14:06
== END 2018-06-22 14:06 | disposition home or self-care (01) ==
LOC: 4E 13:02 → ED 13:02 → 4E 16:59

== ENCOUNTER 2019-04-02 11:32 | Inpatient (IN) ==
[2019-04-02] MEDS ORDERED: SODIUM CHLORIDE 0.9% 500 ML IV ONE (12:02)
[2019-04-02 12:49] LABS: Basophils # (auto) 0.01 K/uL (0-0.2); Basophils % (auto) 0.2 %; Eosinophils # (auto) 0.13 K/uL (0-0.5); Hematocrit (blood only) 26.6 % (42-52); Immature Granulocytes # (auto) 0.01 K/uL (0.00-0.02); Immature Granulocytes % (auto) 0.2 %; Immature Retic Fraction 10.3 % (2.3-13.4); Lymphocytes # (auto) 0.82 K/uL (1.2-3.4); Lymphocytes % (auto) 12.3 %; Mean Corpuscular Hemoglobin 27.2 pg (25-34); Mean Corpuscular Hgb Conc 30.1 g/dL (32-36); Mean Corpuscular Volume 90.5 fL (80-100); Mean Platelet Volume 9.6 fL (7.4-10.4); Monocytes # (auto) 0.38 K/uL (0.11-0.59); Monocytes % (auto) 5.7 %; Neutrophils % (auto) 79.6 %; Platelet Count 209 K/uL (130-400); RDW Coefficient of Variation 15.3 % (11.5-14.5); Red Blood Count 2.94 M/uL (4.7-6.1); Reticulated Hemoglobin 22.2 pg (28.2-36.6); Reticulocyte % 0.9 % (0.5-2.0); Reticulocytes # 0.03 10^6/uL (0.02-0.10); White Blood Count 6.65 K/uL (4.8-10.8)
[2019-04-02 12:52] LABS: Base Excess VBG 5.2 mEq/L; Oxygen Saturation VBG 83.4 %; pH VBG 7.36 (7.36-7.41)
[2019-04-02 13:01] LABS: INR 1.1 (0.9-1.1); Partial Thromboplastin Ratio 0.9; Partial Thromboplastin Time 25.4 Seconds (21.0-31.0); Prothrombin Time 10.9 Seconds (9.0-12.0)
--- NOTE | 2019-04-02 13:02 | XRay Report ---
XR chest 1V portable CLINICAL HISTORY: SEPSIS dyspnea COMPARISON STUDY: 03/12/2019 FINDINGS: Chronic bibasilar interstitial change. No well-defined focal infiltrate. Mid and upper lung s are clear. Emphysematous changes are noted. IMPRESSION: Emphysematous change. Chronic bibasilar interstitial change. No acute process. ACT 112: Negative or not required by law. The above report was generated using voice recognition software. It may contain grammatical, syntax or spelling errors. Electronically signed by: Percy Landa M.D. 04/02/2019 1:01 PM
[2019-04-02 13:09] LABS: Alanine Aminotransferase 19 U/L (12-78); Albumin Level 3.3 gm/dl (3.4-5.0); Aspartate Aminotransferase 10 U/L (15-37); Blood Urea Nitrogen 28 mg/dl (7-18); Calcium 8.5 mg/dl (8.5-10.1); Carbon Dioxide 33 mmol/L (21-32); Chloride 106 mmol/L (98-107); Creatinine Clr Calc Pharmacy 56.6 ml/min; Est GFR (African American) 66.1; Glucose 145 mg/dl (70-99); Magnesium 2.8 mg/dl (1.8-2.4); Potassium 5.8 mmol/L (3.5-5.1); Sodium 138 mmol/L (136-145)
[2019-04-02 13:14] LABS: Albumin Globulin Ratio 0.9 (0.9-2); Alkaline Phosphatase 58 U/L (45-117); Bilirubin,Total 0.4 mg/dl (0.2-1); Globulin 3.7 gm/dl (2.5-4.0); Ovalocytes 1+; Schistocytes Occasional; Troponin I < 0.015 ng/ml (0-0.045)
--- NOTE | 2019-04-02 15:34 | Emergency Department Note ---
Entered by Chencho Gordon acting as a scribe for Jonathan Lei DO History of Present Illness General Chief complaint: Weakness Stated complaint: ABNORMAL BLOOD WORK,TIRED Time Seen by Provider: 04/02/19 11:57 Source: patient History of Present Illness Provider complaint: Weakness Onset (ago): week(s) 2 Location: chest Severity: similar to prior episodes Pain Consistency: + constant Relieved By: + none Associated symptoms: + cough, + shortness of breath and + other (Fatigue); no chest pain, no fever/chills and no nausea/vomiting The patient is a 73 year old male who presents to the Emergency Room with c omplaints of intermittent weakness that has become more consistent over the past 2 weeks ago. The patient's family reports that he has been abnormally fatigued as of late and has been sleeping almost all day. The patient also endorses intermittent shortness of breath that has also gotten worse over the past 2 weeks. The patient has a history of COPD and recurring pneumonia. He adds that his first episode of pneumonia was in January of 2018 and he had it again multiple times in early 2018. The patient relates that during his first bout of pneumonia they noticed his hemoglobin was low and he now follows with Dr. Correa - hematology. With hematology the patient has been trending his hemoglobin over the past 6 months and notes it has a big drop over this past month. The patient has not had a GI work up but notes he has no hematochezia or melena. The patient also had a bone marrow biopsy that did not show anything but he is having a repeat done soon. The patient also follows with Dr. Bunn for his shortness of breath. The patient wears 3L of oxygen at baseline. He has not had any recent blood work or colonoscopies. The patient denies any chest pain, dizziness, nausea, shortness of breath, fevers or leg swelling. Home Medications Home Medications Medication Instructions Recorded Confirmed Type albuterol sulfate 2 puff INHALATION Q4 PRN 12/14/17 04/02/19 History atorvastatin 20 mg PO HS 12/14/17 04/02/19 History diltiazem HCl 360 mg PO DAILY 12/14/17 04/02/19 History fluticasone propion-salmeterol 2 puff INHALATION Q12 12/14/17 04/02/19 History metformin 1,000 mg PO BID 12/14/17 04/02/19 History nitroglycerin 0.4 mg SUBLINGUAL DIRECTED PRN 12/14/17 04/02/19 History dapagliflozin 5 mg PO DAILY 06/13/18 04/02/19 History tiotropium bromide 2.5 2 puff INHALATION DAILY #4 gm 11/09/18 04/02/19 Rx mcg/actuation mist for inhalation Oxygen Home #1 ea 11/13/18 03/12/19 History ipratropium-albuterol 0.5 mg-3 3 ml INHALATION QID PRN #1 ml 11/13/18 04/02/19 History mg(2.5 mg base)/3 mL nebulization soln aspirin 81 mg tablet,delayed 81 mg PO Q2D 11/27/18 04/02/19 History release magnesium oxide 500 mg capsule 500 mg PO BID cap 11/27/18 04/02/19 History candesartan 16 mg tablet 32 mg PO DAILY tab 03/12/19 04/02/19 History Allergies Allergy/AdvReac Type Severity Reaction Status Date / Time ALYSSA Inhibitors Allergy Unknown ANAPHYLAXIS Verified 04/02/19 13:35 Past Med/Surg History Medical History CAD (coronary artery disease) Cardiac disease Community acquired pneumonia (Resolved) COPD (chronic obstructive pulmonary disease) Diabetes DM type 2 (diabetes mellitus, type 2) H/O pulmonary emphysema History of arthritis History of cardioversion History of heart attack History of pneumonia HTN (hypertension) Hyperlipidemia Hypertension Hypomagnesemia Hypoxia (Resolved) Multiple pulmonary nodules determined by computed tomography of lung Peripheral neuropathy Pneumonia (Resolved) SVT (supraventricular tachycardia) Surgical History History of colonoscopy History of nasal surgery Status post cataract extraction of both eyes with insertion of intraocular lens Family History Other Brain tumor Depression Hypertension Stroke Social History Preferred Language: Com[place]an Communication Ability: Effective Cloth Picker Required: No Beliefs That Will Affect Care: None Current Living Situation: Alone Other Information That Helps Us Care for You: No Feels Safe at Home: Yes Safety Concerns: Feels Safe At This Time Smoking Status: Former smoker Tobacco Type: cigarettes ; Do You Dip or Chew Tobacco: No ; Second Hand Exposure: No ; Tobacco Cessation Education Requested by Patient: No Hx Alcohol Use: Yes Alcohol type: beer Hx Substance Use: No Review of Systems See HPI for pertinent positives & negatives. and A total of 10 systems reviewed and were otherwise negative Physical Exam Vital Signs Vital Signs - 24 hr 04/02/19 11:40 04/02/19 12:03 04/02/19 12:04 Temperature 36.7 C Temperature Source Oral Pulse Rate 85 Pulse Rate [Apical] Pulse Rate from SpO2 Sensor Pulse Rhythm [Apical] Respiratory Rate 18 Respiratory Effort / Characteristics Respiratory Depth Blood Pressure 94/55 L Blood Pressure [Right Arm] Blood Pressure Mean 68 Blood Pressure Mean [Right Arm] Blood Pressure Position Sitting Blood Pressure Position [Right Arm] Pulse Oximetry 87 L 99 99 Oxygen Delivery Method Nasal Cannula Nasal Cannula Nasal Cannula Oxygen Flow Rate 4 3 3 Sepsis Recent Fever Within 48 Hours No Sepsis Action Taken by Nursing No Action Required 04/02/19 12:32 04/02/19 12:46 04/02/19 13:02 Temperature Temperature Source Pulse Rate Pulse Rate [Apical] 81 80 76 Pulse Rate from SpO2 Sensor Pulse Rhythm [Apical] Regular Regular Respiratory Rate 21 19 16 Respiratory Effort / Characteristics Non-Labored Non-Labored Respiratory Depth Normal Normal Blood Pressure Blood Pressure [Right Arm] 116/68 119/62 118/61 Blood Pressure Mean Blood Pressure Mean [Right Arm] 84 81 80 Blood Pressure Position Blood Pressure Position [Right Arm] Sitting Sitting Pulse Oximetry 97 98 99 Oxygen Delivery Method Room Air Nasal Cannula Nasal Cannula Oxygen Flow Rate 3 3 2 Sepsis Recent Fever Within 48 Hours Sepsis Action Taken by Nursing 04/02/19 14:22 04/02/19 15:39 Temperature Temperature Source Pulse Rate 73 Pulse Rate [Apical] 85 Pulse Rate from SpO2 Sensor 73 Pulse Rhythm [Apical] Respiratory Rate 16 16 Respiratory Effort / Characteristics Respiratory Depth Blood Pressure 127/63 Blood Pressure [Right Arm] 143/73 H Blood Pressure Mean 84 Blood Pressure Mean [Right Arm] 96 Blood Pressure Position Blood Pressure Position [Right Arm] Pulse Oximetry 97 99 Oxygen Delivery Method Nasal Cannula Nasal Cannula Oxygen Flow Rate 3 3 Sepsis Recent Fever Within 48 Hours Sepsis Action Taken by Nursing GENERAL: Patient is awake alert in no acute distress patient is resting comfortably and showing no signs of anxiety EYES: The conjunctivae are clear. The pupils are round and reactive. EARS, NOSE, MOUTH AND THROAT: The nose is without any evidence of any deformity. Mucous membranes are moist. Tongue is midline. NECK: The neck is nontender and supple. RESPIRATORY: Diminished breath sounds noted throughout. There is scattered rhonchi noted throughout. CARDIOVASCULAR: Regular rate and rhythm were noted to auscultation. There was a systolic murmur suggested. GASTROINTESTINAL: The abdomen is soft. Abdomen is nontender. Rectal exam revealed dark stool which was heme positive. MUSCULOSKELETAL/EXTREMITIES: There is no evidence of gross deformity full range of motion is noted in the hips and shoulders. SKIN: There is no obvious evidence of any rash. Trace pedal edema was noted bilaterally. NEUROLOGIC: Patient is awake alert and oriented x3. Strength was symmetric. Course Course 1159: Past medical records reviewed. The patient was evaluated in room A11B, and a complete history and physical examination were performed. 1413: I reevaluated the patient and he is resting in bed. I also updated him with test results. 1537: I spoke to Dr. Jean [facility] Hospitalist about the patient's case. She agreed to accept the patient for further evaluation. Consultations Consultation #1: I spoke to Dr. Ted Gomez [facility] Hospitalist about the patient's case. She agreed to accept the patient for further evaluation. Time: 15:37 Administered Medications Albuterol (Ventolin 0.5% 2.5mg/0.5ml) 2.5 mg NEB Q2H PRN PRN Reason: SOB/Wheeze Stop: 05/02/19 16:38 Last Admin: 04/02/19 17:02 Dose: 2.5 mg Documented by: [id number] Discontinued Medications Sodium Chloride (Nss) 500 mls @ 999 mls/hr IV .Q31M ONE Stop: 04/02/19 12:32 Last Infusion: 04/02/19 13:31 Dose: 0 mls/hr Documented by: [id number] Admin: 04/02/19 12:54 Dose: 999 mls/hr Documented by: [id number] Medical Decision Making Differential Diagnosis Differential Diagnosis includes but is not limited to dehydration, stroke, anemia, hypoglycemia, hyponatremia, hypernatremia, urinary tract infection, pneumonia, bronchitis, sepsis, gastroenteritis, additional abdominal pathology, metabolic abnormalities and infections. Medical Records Attestation: I reviewed the patient's medical records. Home Medications Current Medication List: was personally reviewed by me Laboratory Data Attestation: I reviewed the patient's lab results. Result diagrams: 04/02/19 12:40 04/02/19 12:40 Lab Results 04/02/19 04/02/19 04/02/19 Range/Units 12:40 12:40 12:40 WBC 6.65 (4.8-10.8) K/uL RBC 2.94 L (4.7-6.1) M/uL Hgb 8.0 L (14.0-18.0) g/dL Hct 26.6 L (42-52) % MCV 90.5 (80-100) fL MCH 27.2 (25-34) pg MCHC 30.1 L (32-36) g/dL RDW Std Deviation 50.0 H (36.4-46.3) fL RDW Coeff of Arnoldo 15.3 H (11.5-14.5) % Plt Count 209 (130-400) K/uL MPV 9.6 (7.4-10.4) fL Immature Gran % (Auto) 0.2 % Neut % (Auto) 79.6 % Lymph % (Auto) 12.3 % Nance % (Auto) 5.7 % Eos % (Auto) 2.0 % Baso % (Auto) 0.2 % Reticulocyte % (Auto) 0.9 (0.5-2.0) % Immature Gran # (Auto) 0.01 (0.00-0.02) K/uL Neut # (Auto) 5.30 (1.4-6.5) K/uL Lymph # (Auto) 0.82 L (1.2-3.4) K/uL Nance # (Auto) 0.38 (0.11-0.59) K/uL Eos # (Auto) 0.13 (0-0.5) K/uL Baso # (Auto) 0.01 (0-0.2) K/uL Reticulocyte # 0.03 (0.02-0.10) 10^6/uL Ovalocytes 1+ Schistocytes Occasional Immature Retic Fraction 10.3 (2.3-13.4) % Retic Hgb Content 22.2 L (28.2-36.6) pg PT 10.9 (9.0-12.0) Seconds INR 1.1 (0.9-1.1) APTT 25.4 (21.0-31.0) Seconds PTT Ratio 0.9 VBG pH (7.36-7.41) VBG pCO2 (38-50) mmHg VBG pO2 mmHg VBG HCO3 mmol/L VBG O2 Saturation % VBG Base Excess mEq/L Barometric Pressure mm/Hg Sodium 138 (136-145) mmol/L Potassium 5.8 H (3.5-5.1) mmol/L Chloride 106 (98-107) mmol/L Carbon Dioxide 33 H (21-32) mmol/L Anion Gap -1.0 L (3-11) BUN 28 H (7-18) mg/dl Creatinine 1.26 (0.6-1.4) mg/dl Est Cr Clr Drug Dosing 56.6 ml/min Est GFR ( Amer) 66.1 Est GFR (Non-Af Amer) 57.0 BUN/Creatinine Ratio 22.0 H (10-20) Glucose 145 H (70-99) mg/dl POC Glucose (70-99) Lactate (0.4-2.0) mmol/L Calcium 8.5 (8.5-10.1) mg/dl Magnesium 2.8 H (1.8-2.4) mg/dl Total Bilirubin 0.4 (0.2-1) mg/dl AST 10 L (15-37) U/L ALT 19 (12-78) U/L Alkaline Phosphatase 58 (45-117) U/L Troponin I < 0.015 (0-0.045) ng/ml Total Protein 7.0 (6.4-8.2) gm/dl Albumin 3.3 L (3.4-5.0) gm/dl Globulin 3.7 (2.5-4.0) gm/dl Albumin/Globulin Ratio 0.9 (0.9-2) Procalcitonin (0-0.5) ng/ml Blood Type Antibody Screen 04/02/19 04/02/19 04/02/19 Range/Units 12:40 12:40 12:40 WBC (4.8-10.8) K/uL RBC (4.7-6.1) M/uL Hgb (14.0-18.0) g/dL Hct (42-52) % MCV (80-100) fL MCH (25-34) pg MCHC (32-36) g/dL RDW Std Deviation (36.4-46.3) fL RDW Coeff of Arnoldo (11.5-14.5) % Plt Count (130-400) K/uL MPV (7.4-10.4) fL Immature Gran % (Auto) % Neut % (Auto) % Lymph % (Auto) % Nance % (Auto) % Eos % (Auto) % Baso % (Auto) % Reticulocyte % (Auto) (0.5-2.0) % Immature Gran # (Auto) (0.00-0.02) K/uL Neut # (Auto) (1.4-6.5) K/uL Lymph # (Auto) (1.2-3.4) K/uL Nance # (Auto) (0.11-0.59) K/uL Eos # (Auto) (0-0.5) K/uL Baso # (Auto) (0-0.2) K/uL Reticulocyte # (0.02-0.10) 10^6/uL Ovalocytes Schistocytes Immature Retic Fraction (2.3-13.4) % Retic Hgb Content (28.2-36.6) pg PT (9.0-12.0) Seconds INR (0.9-1.1) APTT (21.0-31.0) Seconds PTT Ratio VBG pH 7.36 (7.36-7.41) VBG pCO2 57 H (38-50) mmHg VBG pO2 50 mmHg VBG HCO3 31 mmol/L VBG O2 Saturation 83.4 % VBG Base Excess 5.2 mEq/L Barometric Pressure 721.9 mm/Hg Sodium (136-145) mmol/L Potassium (3.5-5.1) mmol/L Chloride (98-107) mmol/L Carbon Dioxide (21-32) mmol/L Anion Gap (3-11) BUN (7-18) mg/dl Creatinine (0.6-1.4) mg/dl Est Cr Clr Drug Dosing ml/min Est GFR ( Amer) Est GFR (Non-Af Amer) BUN/Creatinine Ratio (10-20) Glucose (70-99) mg/dl POC Glucose (70-99) Lactate 1.5 (0.4-2.0) mmol/L Calcium (8.5-10.1) mg/dl Magnesium (1.8-2.4) mg/dl Total Bilirubin (0.2-1) mg/dl AST (15-37) U/L ALT (12-78) U/L Alkaline Phosphatase (45-117) U/L Troponin I (0-0.045) ng/ml Total Protein (6.4-8.2) gm/dl Albumin (3.4-5.0) gm/dl Globulin (2.5-4.0) gm/dl Albumin/Globulin Ratio (0.9-2) Procalcitonin < 0.05 (0-0.5) ng/ml Blood Type Antibody Screen 04/02/19 04/02/19 Range/Units 12:41 15:44 WBC (4.8-10.8) K/uL RBC (4.7-6.1) M/uL Hgb (14.0-18.0) g/dL Hct (42-52) % MCV (80-100) fL MCH (25-34) pg MCHC (32-36) g/dL RDW Std Deviation (36.4-46.3) fL RDW Coeff of Arnoldo (11.5-14.5) % Plt Count (130-400) K/uL MPV (7.4-10.4) fL Immature Gran % (Auto) % Neut % (Auto) % Lymph % (Auto) % Nance % (Auto) % Eos % (Auto) % Baso % (Auto) % Reticulocyte % (Auto) (0.5-2.0) % Immature Gran # (Auto) (0.00-0.02) K/uL Neut # (Auto) (1.4-6.5) K/uL Lymph # (Auto) (1.2-3.4) K/uL Nance # (Auto) (0.11-0.59) K/uL Eos # (Auto) (0-0.5) K/uL Baso # (Auto) (0-0.2) K/uL Reticulocyte # (0.02-0.10) 10^6/uL Ovalocytes Schistocytes Immature Retic Fraction (2.3-13.4) % Retic Hgb Content (28.2-36.6) pg PT (9.0-12.0) Seconds INR (0.9-1.1) APTT (21.0-31.0) Seconds PTT Ratio VBG pH (7.36-7.41) VBG pCO2 (38-50) mmHg VBG pO2 mmHg VBG HCO3 mmol/L VBG O2 Saturation % VBG Base Excess mEq/L Barometric Pressure mm/Hg Sodium (136-145) mmol/L Potassium (3.5-5.1) mmol/L Chloride (98-107) mmol/L Carbon Dioxide (21-32) mmol/L Anion Gap (3-11) BUN (7-18) mg/dl Creatinine (0.6-1.4) mg/dl Est Cr Clr Drug Dosing ml/min Est GFR ( Amer) Est GFR (Non-Af Amer) BUN/Creatinine Ratio (10-20) Glucose (70-99) mg/dl POC Glucose 91 (70-99) Lactate (0.4-2.0) mmol/L Calcium (8.5-10.1) mg/dl Magnesium (1.8-2.4) mg/dl Total Bilirubin (0.2-1) mg/dl AST (15-37) U/L ALT (12-78) U/L Alkaline Phosphatase (45-117) U/L Troponin I (0-0.045) ng/ml Total Protein (6.4-8.2) gm/dl Albumin (3.4-5.0) gm/dl Globulin (2.5-4.0) gm/dl Albumin/Globulin Ratio (0.9-2) Procalcitonin (0-0.5) ng/ml Blood Type O Positive Antibody Screen NEGATIVE Imaging Data Radiologist's Impression: Radiology results as stated below per my review and the radiologist's interpretation: XR chest 1V portable CLINICAL HISTORY: SEPSIS dyspnea COMPARISON STUDY: 03/12/2019 FINDINGS: Chronic bibasilar interstitial change. No well-defined focal infil trate. Mid and upper lungs are clear. Emphysematous changes are noted. IMPRESSION: Emphysematous change. Chronic bibasilar interstitial change. No acute process. ACT 112: Negative or not required by law. The above report was generated using voice recognition software. It may contain grammatical, syntax or spelling errors. Electronically signed by: Percy Landa M.D. 04/02/2019 1:01 PM ECG Data Attestation: I personally reviewed and interpreted this ECG as follows: Indication: + weakness Rate (beats per minute): 77 Rhythm: + normal sinus ECG ST segments: no ST depression and no ST elevation ECG Findings: no PACs and no PVCs Comparison ECG Date: from (06/19/18) Change: no significant change Blood Pressure Blood Pressure Findings: Elevated blood pressure Blood Pressure Disposition: further management by hospitalist [facility] Narrative The patient is a 73-year-old male who presented to the emergency department for an evaluation of shortness of breath and generalized weakness. The patient has had worsening anemia over the last few months. He has had a bone marrow work-up which did not appear to give a reason for the patient's anemia. The patient was heme positive on rectal exam and I would be concerned that he may have an ongoing GI bleed. I discussed the patient's laboratory and radiographic studies with him and his family members. The patient was treated with IV fluids and supplemental oxygen. On subsequent reevaluation he was feeling much better. He was found to have a mild elevation in his potassium but this was treated with IV fluids and I do not feel that this is clinically the cause of his symptoms at this time. I discussed his case with the on-call [facility] hospitalist group. They have agreed to evaluate the patient in the emergency department for further management and disposition. Impression & Plan Anemia, Generalized weakness, GI bleed, Acute hyperkalemia Discharge Plan Visit Data *Final* Discharge Date/Time: 04/02/19 16:11 Chief Complaint: Weakness Stated Complaint: ABNORMAL BLOOD WORK,TIRED ED Provider: Jonathan Lei Discharge Problem: Anemia, Generalized weakness, GI bleed, Acute hyperkalemia Patient Disposition: Admitted As Inpatient Discharge Instructions Interventions: ED Discharge Assessment Last Done: 04/02/19 16:11 Discharge Problem: Anemia Qualifiers: Anemia type: unspecified type Qualified Code(s): D64.9 - Anemia, unspecified GI bleed Qualifiers: GI bleed type/associated pathology: unspecified gastrointestinal hemorrhage type Qualified Code(s): K92.2 - Gastrointestinal hemorrhage, unspecified The scribe's documentation has been prepared under my direction and personally reviewed by me in its entirety. I confirm that the note above accurately reflects all work, treatment, procedures, and medical decision making performed by me.
[2019-04-02] MEDS ORDERED: SODIUM CHLORIDE 0.9% 1000ML 1,000 ML IV SCH (16:39)
[2019-04-02] MEDS ORDERED: GLUCOSE 40% GEL 15 GM TUBE PO PRN (16:39)
[2019-04-02] MEDS ORDERED: GLUCOSE 10 TABS/TUBE PO PRN (16:39)
[2019-04-02] MEDS ORDERED: ALBUTEROL 0.5% NEB SOLN 2.5 MG/0.5 ML VIAL NEB PRN (16:39)
[2019-04-02] MEDS ORDERED: CARBOHYDRATES FOR HYPOGLYCEMIA PO PRN (16:39)
[2019-04-02] MEDS ORDERED: GLUCAGON FOR INJ 1 MG VIAL SQ PRN (16:39)
[2019-04-02] MEDS: INSULIN ASPART 100 UNITS/ML 3 ML PEN SC SCH ×2 (17:32→20:24)
[2019-04-02 18:32] LABS: Reticulocyte % 0.7 % (0.5-2.0); Reticulocytes # 0.02 10^6/uL (0.02-0.10)
[2019-04-02 18:49] LABS: BUN Creatinine Ratio 19.5 (10-20); Calcium 8.2 mg/dl (8.5-10.1); Creatinine Clr Calc Pharmacy 52.1 ml/min; Est GFR (African American) 59.7; Est GFR (Non-African American) 51.5; Potassium 5.5 mmol/L (3.5-5.1)
[2019-04-02 18:54] LABS: Ferritin 6.4 ng/ml (8-388); Phosphorus 3.7 mg/dl (2.5-4.9)
[2019-04-02] MEDS: ALBUT/IPRATROP 3MG/0.5MG NEB 3 ML VIAL NEB SCH ×2 (19:13→23:32)
--- NOTE | 2019-04-02 19:40 | History & Physical Report ---
Date of Service April 02, 2019 Assessment & Plan (1) Anemia: Patient with normochromic, normocytic anemia Hgb = 8, HCT = 26.6. Hemoccult study performed by ER attending reported to be positive. Patient with slightly low iron and low ferritin (33 and 6.4, respectively). Transferrin satu ration to be added on to labs. Reticulocyte production index equals 0.3 suggestive of hypo-proliferation. Possibly multifactorial causes of patient's anemia to include GI losses and hypo-proliferation? No laboratory evidence of hemolysis. Few schistocytes noted on automated differential. We will admit patient to medical floor GI consultation. Patient with persistent anemia, Hemoccult positive stools. No prior EGD. Colonoscopy in 2016 with angiectasias -CBC in a.m. Peripheral blood smear Consult hematologypatient is known to Dr. Correa Present on Admission?: Yes (2) Generalized weakness: Patient with generalized weakness and fatigue. Uncertain if this is related to his anemia or COPD. -Treatment of underlying medical conditions as above PT/OT evaluation appreciated Present on Admission?: Yes (3) Acute hyperkalemia: Potassium = 5.8, was 5.5 on repeat labs. Unclear etiology. Patient's baseline potassium value seems to be approximately 4-5. Renal function is stable. No EKG changes We will administer Lasix 20 mg IV x1 dose Hold candesartan for now Repeat potassium in the morning Present on Admission?: Yes (4) COPD, severe: Patient with severe oxygen dependent COPD, PFTs 05/23/2018 with FEV1 to FVC of 34%, FEV1 of 31%. Reported to be hypoxic earlier today at 85%. Presently saturating well on baseline 3 L. Diffuse wheezing noted on lung exam with prolonged expiratory phase. Continue supplemental oxygen, goal saturation of 88 to 92% DuoNeb every 4 hours Albuterol every 2 hours as needed Mucinex 600 mg p.o. twice daily Continue Advair Will hold systemic steroids for now Present on Admission?: Yes (5) Coronary artery disease: Chronic. Stable. Patient denies chest pain. No EKG evidence of acute ischemia. Patient allergic to ALYSSA inhibitors Continue aspirin 81 mg p.o. every other day Continue atorvastatin 21 mg p.o. nightly Holding candesartan due to hyperkalemia as described above Consider initiating cardioselective beta-sawyer prior to discharge and patient with CAD, may also improve COPD in the long run Present on Admission?: Yes (6) WENDY (obstructive sleep apnea): Moderate obstructive sleep apnea with nocturnal hypoxia and periodic limb movement disorder per sleep study performed 06/02/2018. CPAP recommended. Patient has been unable to tolerate. Encourage use if tolerated Present on Admission?: Yes (7) Hypertension: Blood pressure stable Holding candesartan as above Continue diltiazem Continue to monitor Present on Admission?: Yes (8) Hyperlipidemia: Chronic. Stable. Continue atorvastatin Present on Admission?: Yes (9) DM type 2 (diabetes mellitus, type 2): Chronic. Blood sugar mildly elevated at 195. Patient on dapagliflozin and metformin as outpatient. Last hemoglobin A1c on 06/18/2018 was 8. Hold dapagliflozin and metformin while inpatient Lantus 7 units twice daily Insulin sliding scale Consistent carb diet as tolerated Present on Admission?: Yes (10) Chronic diastolic CHF (congestive heart failure): Patient does not appear to be volume overloaded at this time. Continue to monitor Echocardiogram to assess for pulmonary hypertension Present on Admission?: Yes (11) SVT (supraventricular tachycardia): Remote history of SVT. Patient presently in normal sinus rhythm. Continue Diltiazem 360mg po daily F/E/N - NSS at 80mL/hr, CC/AHA diet as tolerated, NPO after midnight, K management as above Ppx - Low risk for DVT Code - Full Dispo - Admit to medical floor History of Present Illness Chief Complaint: Shortness of breath Primary Care Provider: Diaz Thomas MD Kristopher Louie is a pleasant 73-year-old male with history of COPD on 3 L of oxygen, hypertension/hyperlipidemia/diabetes/CAD and anemia presenting with shortness of breath. Family reports that patient's symptoms began last spring after he was hospitalized for pneumonia and a COPD exacerbation. During that hospital stay he was treated with a course of antibiotics and steroid taper and discharged home. He was readmitted shortly after discharge for blood sugar management and steroid-induced hyperglycemia. During those hospital stays patient was found to be anemic with hemoglobin of 8.9-10 and was subsequently referred to Hematology for work-up. He was seen in July 2018. He had a bone marrow biopsy performed on 09/18/2018 which showed mildly hypercellular marrow with trilineage hem atopoiesis, mild erythroid hyperplasia, decreased iron stores, and no evidence of myelodysplasia by morphology or MDS FISH panel. He was followed with serial CBCs. Most recently seen by Hematology on 03/11/2019 with shortness of breath and decreased H&H (Hgb 8.5, HCT 28.3 at that time). Patient thought to be having a COPD exacerbation at that time and was seen by pulmonary on 03/12/2019 and given a prescription for doxycycline and a prednisone taper. Patient had another CBC performed today which showed worsening anemia, Hgb = 8, HCT = 26.6 therefore he came to the ER. His symptoms are mostly increased lethargy. Family reports that he sleeps all day and has difficulty performing his ADLs. He is also complaining of worsening shortness of breath, dyspnea on exertion and decreased exercise tolerance. He has been using his nebulizers at home with minimal improvement in symptoms. He reports a stable cough with stable sputum production, no purulence/hemoptysis/increase in sputum. He denies worsening wheeze. He denies blood loss, specifically no hematemesis/melena/hematochezia. No hematuria/bleeding/bruising. He is no longer taking iron supplementation. Last colonoscopy performed in 2015 reported angioma ectasias. Repeat scheduled for 2020 ER course: Normal saline Allergies Allergy/AdvReac Type Severity Reaction Status Date / Time ALYSSA Inhibitors Allergy Unknown ANAPHYLAXIS Verified 04/02/19 13:35 Home Medications Home Medications Medication Instructions Recorded Confirmed Type albuterol sulfate 2 puff INHALATION Q4 PRN 12/14/17 04/02/19 History atorvastatin 20 mg PO HS 12/14/17 04/02/19 History diltiazem HCl 360 mg PO DAILY 12/14/17 04/02/19 History fluticasone propion-salmeterol 2 puff INHALATION Q12 12/14/17 04/02/19 History metformin 1,000 mg PO BID 12/14/17 04/02/19 History nitroglycerin 0.4 mg SUBLINGUAL DIRECTED PRN 12/14/17 04/02/19 History dapagliflozin 5 mg PO DAILY 06/13/18 04/02/19 History tiotropium bromide 2.5 2 puff INHALATION DAILY #4 gm 11/09/18 04/02/19 Rx mcg/actuation mist for inhalation Oxygen Home #1 ea 11/13/18 03/12/19 History ipratropium-albuterol 0.5 mg-3 3 ml INHALATION QID PRN #1 ml 11/13/18 04/02/19 History mg(2.5 mg base)/3 mL nebulization soln aspirin 81 mg tablet,delayed 81 mg PO Q2D 11/27/18 04/02/19 History release magnesium oxide 500 mg capsule 500 mg PO BID cap 11/27/18 04/02/19 History candesartan 16 mg tablet 32 mg PO DAILY tab 03/12/19 04/02/19 History Past Med/Surg History Medical History (Updated 04/02/19 @ 19:52 by Katlyn Jean DO) Community acquired pneumonia (Resolved) COPD (chronic obstructive pulmonary disease) DM type 2 (diabetes mellitus, type 2) H/O pulmonary emphysema History of arthritis History of cardioversion History of heart attack History of pneumonia Hyperlipidemia Hypertension Hypomagnesemia Hypoxia (Resolved) Multiple pulmonary nodules determined by computed tomography of lung Peripheral neuropathy Pneumonia (Resolved) SVT (supraventricular tachycardia) Surgical History (Updated 04/02/19 @ 19:14 by Katlyn Jean DO) History of bone marrow biopsy History of colonoscopy History of nasal surgery Status post cataract extraction of both eyes with insertion of intraocular lens Family History Other Brain tumor Depression Hypertension Stroke Social History Preferred Language: Belarusian Communication Ability: Effective Lead Designer Required: No Beliefs That Will Affect Care: None Current Living Situation: Alone Other Information That Helps Us Care for You: No Feels Safe at Home: Yes Safety Concerns: Feels Safe At This Time Smoking Status: Former smoker Tobacco Type: cigarettes ; Do You Dip or Chew Tobacco: No ; Second Hand Exposure: No ; Tobacco Cessation Education Requested by Patient: No Hx Alcohol Use: Yes Alcohol type: beer Hx Substance Use: No Review of Systems Review of Systems: All systems reviewed & are unremarkable except as noted in HPI & below Fatigue, shortness of breath, dyspnea All other systems negative Physical Exam Physical Exam: General: patient resting comfortably, NAD, non-toxic in appearance, AA&O x 4 Skin: warm, dry, intact, no rashes or lesions HEENT: NC/AT, PERRL, EOMI, anicteric sclera, conjunctiva without injection, external ear normal to inspection and nontender, nares patent, moist mucus membranes, dentition intact, no oropharyngeal lesions, neck supple, trachea midline, no LAD, no thyromegaly, no JVD Heart: +S1/S2, regular, no m/r/g Lungs: equal air entry bilaterally, no rales/rhonchi, diffuse end expiratory wheezing with prolonged expiratory phase Abd: +BS, soft, NT/ND, no masses/organomegaly/ascites Ext: warm, 2+ pulses in UE/LE bilaterally, no clubbing/cyanosis or edema Neuro: nonfocal, patient AA&O x 4, speech intact, no facial droop, moving all extremities on command with equal strength 5/5 Results & Data Vital Signs (Past 12 Hours) Vital Signs Temp Pulse Pulse Pulse Resp BP BP 04/02/19 17:02 74 16 04/02/19 16:42 36.5 C 93 H 22 147/67 H 04/02/19 15:45 75 18 129/66 04/02/19 15:39 73 16 127/63 04/02/19 14:22 85 16 143/73 H 04/02/19 13:02 76 16 118/61 04/02/19 12:46 80 19 119/62 04/02/19 12:32 81 21 116/68 04/02/19 12:04 04/02/19 12:03 04/02/19 11:40 36.7 C 85 18 94/55 L Pulse Ox 04/02/19 17:02 98 04/02/19 16:42 91 04/02/19 15:45 100 04/02/19 15:39 99 04/02/19 14:22 97 04/02/19 13:02 99 04/02/19 12:46 98 04/02/19 12:32 97 04/02/19 12:04 99 04/02/19 12:03 99 04/02/19 11:40 87 L Laboratory Results Lab Results 04/02/19 04/02/19 04/02/19 Range/Units 12:40 12:40 12:40 WBC 6.65 (4.8-10.8) K/uL RBC 2.94 L (4.7-6.1) M/uL Hgb 8.0 L (14.0-18.0) g/dL Hct 26.6 L (42-52) % MCV 90.5 (80-100) fL MCH 27.2 (25-34) pg MCHC 30.1 L (32-36) g/dL RDW Std Deviation 50.0 H (36.4-46.3) fL RDW Coeff of Arnoldo 15.3 H (11.5-14.5) % Plt Count 209 (130-400) K/uL MPV 9.6 (7.4-10.4) fL Immature Gran % (Auto) 0.2 % Neut % (Auto) 79.6 % Lymph % (Auto) 12.3 % [place] % (Auto) 5.7 % Eos % (Auto) 2.0 % Baso % (Auto) 0.2 % Reticulocyte % (Auto) 0.9 (0.5-2.0) % Immature Gran # (Auto) 0.01 (0.00-0.02) K/uL Neut # (Auto) 5.30 (1.4-6.5) K/uL Lymph # (Auto) 0.82 L (1.2-3.4) K/uL [place] # (Auto) 0.38 (0.11-0.59) K/uL Eos # (Auto) 0.13 (0-0.5) K/uL Baso # (Auto) 0.01 (0-0.2) K/uL Reticulocyte # 0.03 (0.02-0.10) 10^6/uL Ovalocytes 1+ Schistocytes Occasional Immature Retic Fraction 10.3 (2.3-13.4) % Retic Hgb Content 22.2 L (28.2-36.6) pg PT 10.9 (9.0-12.0) Seconds INR 1.1 (0.9-1.1) APTT 25.4 (21.0-31.0) Seconds PTT Ratio 0.9 VBG pH (7.36-7.41) VBG pCO2 (38-50) mmHg VBG pO2 mmHg VBG HCO3 mmol/L VBG O2 Saturation % VBG Base Excess mEq/L Barometric Pressure mm/Hg Sodium 138 (136-145) mmol/L Potassium 5.8 H (3.5-5.1) mmol/L Chloride 106 (98-107) mmol/L Carbon Dioxide 33 H (21-32) mmol/L Anion Gap -1.0 L (3-11) BUN 28 H (7-18) mg/dl Creatinine 1.26 (0.6-1.4) mg/dl Est Cr Clr Drug Dosing 56.6 ml/min Est GFR ( Amer) 66.1 Est GFR (Non-Af Amer) 57.0 BUN/Creatinine Ratio 22.0 H (10-20) Glucose 145 H (70-99) mg/dl POC Glucose (70-99) Lactate (0.4-2.0) mmol/L Calcium 8.5 (8.5-10.1) mg/dl Phosphorus (2.5-4.9) mg/dl Magnesium 2.8 H (1.8-2.4) mg/dl Iron (35-175) mcg/dl TIBC (250-450) mcg/dl Ferritin (8-388) ng/ml Total Bilirubin 0.4 (0.2-1) mg/dl AST 10 L (15-37) U/L ALT 19 (12-78) U/L Alkaline Phosphatase 58 (45-117) U/L Troponin I < 0.015 (0-0.045) ng/ml Total Protein 7.0 (6.4-8.2) gm/dl Albumin 3.3 L (3.4-5.0) gm/dl Globulin 3.7 (2.5-4.0) gm/dl Albumin/Globulin Ratio 0.9 (0.9-2) Procalcitonin (0-0.5) ng/ml Blood Type Antibody Screen 04/02/19 04/02/19 04/02/19 Range/Units 12:40 12:40 12:40 WBC (4.8-10.8) K/uL RBC (4.7-6.1) M/uL Hgb (14.0-18.0) g/dL Hct (42-52) % MCV (80-100) fL MCH (25-34) pg MCHC (32-36) g/dL RDW Std Deviation (36.4-46.3) fL RDW Coeff of Arnoldo (11.5-14.5) % Plt Count (130-400) K/uL MPV (7.4-10.4) fL Immature Gran % (Auto) % Neut % (Auto) % Lymph % (Auto) % [place] % (Auto) % Eos % (Auto) % Baso % (Auto) % Reticulocyte % (Auto) (0.5-2.0) % Immature Gran # (Auto) (0.00-0.02) K/uL Neut # (Auto) (1.4-6.5) K/uL Lymph # (Auto) (1.2-3.4) K/uL [place] # (Auto) (0.11-0.59) K/uL Eos # (Auto) (0-0.5) K/uL Baso # (Auto) (0-0.2) K/uL Reticulocyte # (0.02-0.10) 10^6/uL Ovalocytes Schistocytes Immature Retic Fraction (2.3-13.4) % Retic Hgb Content (28.2-36.6) pg PT (9.0-12.0) Seconds INR (0.9-1.1) APTT (21.0-31.0) Seconds PTT Ratio VBG pH 7.36 (7.36-7.41) VBG pCO2 57 H (38-50) mmHg VBG pO2 50 mmHg VBG HCO3 31 mmol/L VBG O2 Saturation 83.4 % VBG Base Excess 5.2 mEq/L Barometric Pressure 721.9 mm/Hg Sodium (136-145) mmol/L Potassium (3.5-5.1) mmol/L Chloride (98-107) mmol/L Carbon Dioxide (21-32) mmol/L Anion Gap (3-11) BUN (7-18) mg/dl Creatinine (0.6-1.4) mg/dl Est Cr Clr Drug Dosing ml/min Est GFR ( Amer) Est GFR (Non-Af Amer) BUN/Creatinine Ratio (10-20) Glucose (70-99) mg/dl POC Glucose (70-99) Lactate 1.5 (0.4-2.0) mmol/L Calcium (8.5-10.1) mg/dl Phosphorus (2.5-4.9) mg/dl Magnesium (1.8-2.4) mg/dl Iron (35-175) mcg/dl TIBC (250-450) mcg/dl Ferritin (8-388) ng/ml Total Bilirubin (0.2-1) mg/dl AST (15-37) U/L ALT (12-78) U/L Alkaline Phosphatase (45-117) U/L Troponin I (0-0.045) ng/ml Total Protein (6.4-8.2) gm/dl Albumin (3.4-5.0) gm/dl Globulin (2.5-4.0) gm/dl Albumin/Globulin Ratio (0.9-2) Procalcitonin < 0.05 (0-0.5) ng/ml Blood Type Antibody Screen 04/02/19 04/02/19 04/02/19 Range/Units 12:41 15:44 16:58 WBC (4.8-10.8) K/uL RBC (4.7-6.1) M/uL Hgb (14.0-18.0) g/dL Hct (42-52) % MCV (80-100) fL MCH (25-34) pg MCHC (32-36) g/dL RDW Std Deviation (36.4-46.3) fL RDW Coeff of Arnoldo (11.5-14.5) % Plt Count (130-400) K/uL MPV (7.4-10.4) fL Immature Gran % (Auto) % Neut % (Auto) % Lymph % (Auto) % [place] % (Auto) % Eos % (Auto) % Baso % (Auto) % Reticulocyte % (Auto) (0.5-2.0) % Immature Gran # (Auto) (0.00-0.02) K/uL Neut # (Auto) (1.4-6.5) K/uL Lymph # (Auto) (1.2-3.4) K/uL [place] # (Auto) (0.11-0.59) K/uL Eos # (Auto) (0-0.5) K/uL Baso # (Auto) (0-0.2) K/uL Reticulocyte # (0.02-0.10) 10^6/uL Ovalocytes Schistocytes Immature Retic Fraction (2.3-13.4) % Retic Hgb Content (28.2-36.6) pg PT (9.0-12.0) Seconds INR (0.9-1.1) APTT (21.0-31.0) Seconds PTT Ratio VBG pH (7.36-7.41) VBG pCO2 (38-50) mmHg VBG pO2 mmHg VBG HCO3 mmol/L VBG O2 Saturation % VBG Base Excess mEq/L Barometric Pressure mm/Hg Sodium (136-145) mmol/L Potassium (3.5-5.1) mmol/L Chloride (98-107) mmol/L Carbon Dioxide (21-32) mmol/L Anion Gap (3-11) BUN (7-18) mg/dl Creatinine (0.6-1.4) mg/dl Est Cr Clr Drug Dosing ml/min Est GFR ( Amer) Est GFR (Non-Af Amer) BUN/Creatinine Ratio (10-20) Glucose (70-99) mg/dl POC Glucose 91 171 H (70-99) Lactate (0.4-2.0) mmol/L Calcium (8.5-10.1) mg/dl Phosphorus (2.5-4.9) mg/dl Magnesium (1.8-2.4) mg/dl Iron (35-175) mcg/dl TIBC (250-450) mcg/dl Ferritin (8-388) ng/ml Total Bilirubin (0.2-1) mg/dl AST (15-37) U/L ALT (12-78) U/L Alkaline Phosphatase (45-117) U/L Troponin I (0-0.045) ng/ml Total Protein (6.4-8.2) gm/dl Albumin (3.4-5.0) gm/dl Globulin (2.5-4.0) gm/dl Albumin/Globulin Ratio (0.9-2) Procalcitonin (0-0.5) ng/ml Blood Type O Positive Antibody Screen NEGATIVE 04/02/19 04/02/19 Range/Units 18:22 18:22 WBC (4.8-10.8) K/uL RBC (4.7-6.1) M/uL Hgb (14.0-18.0) g/dL Hct (42-52) % MCV (80-100) fL MCH (25-34) pg MCHC (32-36) g/dL RDW Std Deviation (36.4-46.3) fL RDW Coeff of Arnoldo (11.5-14.5) % Plt Count (130-400) K/uL MPV (7.4-10.4) fL Immature Gran % (Auto) % Neut % (Auto) % Lymph % (Auto) % [place] % (Auto) % Eos % (Auto) % Baso % (Auto) % Reticulocyte % (Auto) 0.7 (0.5-2.0) % Immature Gran # (Auto) (0.00-0.02) K/uL Neut # (Auto) (1.4-6.5) K/uL Lymph # (Auto) (1.2-3.4) K/uL [place] # (Auto) (0.11-0.59) K/uL Eos # (Auto) (0-0.5) K/uL Baso # (Auto) (0-0.2) K/uL Reticulocyte # 0.02 (0.02-0.10) 10^6/uL Ovalocytes Schistocytes Immature Retic Fraction (2.3-13.4) % Retic Hgb Content (28.2-36.6) pg PT (9.0-12.0) Seconds INR (0.9-1.1) APTT (21.0-31.0) Seconds PTT Ratio VBG pH (7.36-7.41) VBG pCO2 (38-50) mmHg VBG pO2 mmHg VBG HCO3 mmol/L VBG O2 Saturation % VBG Base Excess mEq/L Barometric Pressure mm/Hg Sodium 139 (136-145) mmol/L Potassium 5.5 H (3.5-5.1) mmol/L Chloride 106 (98-107) mmol/L Carbon Dioxide 32 (21-32) mmol/L Anion Gap 1.0 L (3-11) BUN 27 H (7-18) mg/dl Creatinine 1.37 (0.6-1.4) mg/dl Est Cr Clr Drug Dosing 52.1 ml/min Est GFR ( Amer) 59.7 Est GFR (Non-Af Amer) 51.5 BUN/Creatinine Ratio 19.5 (10-20) Glucose 195 H (70-99) mg/dl POC Glucose (70-99) Lactate (0.4-2.0) mmol/L Calcium 8.2 L (8.5-10.1) mg/dl Phosphorus 3.7 (2.5-4.9) mg/dl Magnesium (1.8-2.4) mg/dl Iron 33 L (35-175) mcg/dl TIBC 339 (250-450) mcg/dl Ferritin 6.4 L (8-388) ng/ml Total Bilirubin (0.2-1) mg/dl AST (15-37) U/L ALT (12-78) U/L Alkaline Phosphatase (45-117) U/L Troponin I (0-0.045) ng/ml Total Protein (6.4-8.2) gm/dl Albumin (3.4-5.0) gm/dl Globulin (2.5-4.0) gm/dl Albumin/Globulin Ratio (0.9-2) Procalcitonin (0-0.5) ng/ml Blood Type Antibody Screen Diagnostic Findings XR chest 1V portable CLINICAL HISTORY: SEPSIS dyspnea COMPARISON STUDY: 03/12/2019 FINDINGS: Chronic bibasilar interstitial change. No well-defined focal infiltrate. Mid and upper lungs are clear. Emphysematous changes are noted. IMPRESSION: Emphysematous change. Chronic bibasilar interstitial change. No acute process. ACT 112: Negative or not required by law. The above report was generated using voice recognition software. It may contain grammatical, syntax or spelling errors. Electronically signed by: Percy Landa M.D. 04/02/2019 1:01 PM Dictated: 04/02/19 1300 Transcribed: 04/02/19 1300 ECG Additional Comments: The study shows normal sinus rhythm at 77 bpm, no acute ischemic changes Code Status & VTE Plan Code Status Full code VTE Prophylaxis Plan VTE Prophylaxis will be ordered: Yes PG Care Time/CCT Total # of Minutes Spent Total Time Spent with Patient: Total time spent is greater than 50% in coordination of care (as documented) at patient's floor/unit and/or counseling patient: (1) Anemia Anemia type: unspecified type Qualified Code(s): D64.9 - Anemia, unspecified (2) Coronary artery disease Coronary Disease-Associated Artery/Lesion type: [place] artery [place] vs. 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
[2019-04-02] MEDS ORDERED: FUROSEMIDE 20 MG in SYRINGE 0 ML IV SCH (20:00)
[2019-04-02 20:10] LABS: Iron 18 mcg/dl (35-175); Transferrin 252 mg/dl (200-360); Transferrin Percent Saturation 5 % (20-50)
[2019-04-02] MEDS: FLUTICASONE/SALMETEROL 100/50 (ADVAIR) 14 PUFF/1 INHALER INH SCH (20:24)
[2019-04-02] MEDS: guaiFENesin 600 MG TABCR PO SCH (20:24)
[2019-04-02] MEDS: ATORVASTATIN 20 MG TAB PO SCH (20:24)
[2019-04-02] MEDS: INSULIN GLARGINE SOLOSTAR 100 UNITS/ML 3 ML PEN SQ SCH (21:01)
[2019-04-03] MEDS ORDERED: Nursing to Pharmacy Communication ONE ×3 (00:16→22:35)
[2019-04-03] MEDS: INSULIN ASPART 100 UNITS/ML 3 ML PEN SC SCH ×5 (00:26→20:54)
[2019-04-03 02:10] LABS: Appearance Urine Clear (Clear); Bilirubin Urine Negative (Negative); Blood Urine Negative (Negative); Color Urine Yellow; Glucose Urine UA 2+ (Negative); Ketones Urine Negative (Negative); Leukocyte Esterase Urine Negative (Negative); Nitrite Urine Negative (Negative); Protein Urine Negative (Negative); Specific Gravity Urine 1.011 (1.000-1.030); Urobilinogen Urine Negative (Negative)
[2019-04-03] MEDS: ALBUT/IPRATROP 3MG/0.5MG NEB 3 ML VIAL NEB SCH ×6 (02:31→22:12)
[2019-04-03 06:50] LABS: Basophils # (auto) 0.01 K/uL (0-0.2); Basophils % (auto) 0.2 %; Eosinophils # (auto) 0.19 K/uL (0-0.5); Eosinophils % (auto) 3.1 %; Hematocrit (blood only) 27.9 % (42-52); Hemoglobin 8.2 g/dL (14.0-18.0); Immature Granulocytes # (auto) 0.01 K/uL (0.00-0.02); Immature Granulocytes % (auto) 0.2 %; Lymphocytes # (auto) 1.08 K/uL (1.2-3.4); Lymphocytes % (auto) 17.6 %; Mean Corpuscular Hemoglobin 27.1 pg (25-34); Mean Corpuscular Hgb Conc 29.4 g/dL (32-36); Mean Corpuscular Volume 92.1 fL (80-100); Mean Platelet Volume 9.2 fL (7.4-10.4); Monocytes # (auto) 0.43 K/uL (0.11-0.59); Neutrophils # (auto) 4.42 K/uL (1.4-6.5); Neutrophils % (auto) 71.9 %; Platelet Count 214 K/uL (130-400); RDW Coefficient of Variation 15.1 % (11.5-14.5); RDW Standard Deviation 51.6 fL (36.4-46.3); Red Blood Count 3.03 M/uL (4.7-6.1); White Blood Count 6.14 K/uL (4.8-10.8)
[2019-04-03 07:25] LABS: BUN Creatinine Ratio 24.1 (10-20); Calcium 8.4 mg/dl (8.5-10.1); Creatinine Clr Calc Pharmacy 62.1 ml/min; Est GFR (African American) 73.8; Est GFR (Non-African American) 63.7; Potassium 4.9 mmol/L (3.5-5.1)
[2019-04-03] MEDS: FLUTICASONE/SALMETEROL 100/50 (ADVAIR) 14 PUFF/1 INHALER INH SCH ×2 (08:29→20:51)
[2019-04-03] MEDS: INSULIN GLARGINE SOLOSTAR 100 UNITS/ML 3 ML PEN SQ SCH ×2 (08:32→20:52)
[2019-04-03] MEDS: guaiFENesin 600 MG TABCR PO SCH ×2 (08:40→20:51)
[2019-04-03] MEDS: dilTIAZem HCL 180 MG CAPCR PO SCH (08:41)
[2019-04-03] MEDS: IRON SUCROSE 200 MG in 0.9 % SODIUM CHLORIDE 100 ML IV SCH (11:19)
--- NOTE | 2019-04-03 11:20 | Oncology Consultation ---
Date of Consultation April 03, 2019 Assessment & Plan (1) Anemia: Mr. Louie is more anemic today, but his labs are interesting. His ferritin and transferrin saturation are low, which is diagnostic of iron deficiency, but his MCV is normal and is, if anything, higher than it was in the Spring, when his ferritin and iron saturation were normal. This suggests that there is likely more than one issue going on. 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 I suspect he will need another biopsy at some point, though I would like to see how his counts respond to iron first. We should transfuse him today because he is symptomatically anemic. He is also seeing GI today and they are planning an EGD and colonoscopy tomorrow. He has a history of colonic angioectasias and that may be the issue again. He has no alarm symptoms for an upper or lower GI malignancy. I will plan to give him Feraheme as an outpatient to correct his iron deficiency. Present on Admission?: Yes History of Present Illness Reason for Consultation: Anemia Attending Physician: Dave Penn MD History of Present Illness Mr. Louie is a 73 year old man with a history of DM, COPD on home oxygen, CAD s/p multiple stents, pulmonary hypertension, and fatty liver disease. He has followed with me since the spring for anemia. It has been moderate and normocytic. I performed a bone marrow biopsy in late September that revealed some changes that were borderline for MDS, though no diagnostic changes were seen and cytogenetics and FISH were normal. His iron stores were decreased, though present, and he had a normal ferritin and iron saturation at that time. A workup for other explanations for normocytic anemia was unrevealing, so I suggested we monitor his counts for a while. He returned to see me earlier in March after his hemoglobin dropped into the 8s. He was having a COPD exacerbation and was sick, so I suggested we repeat a CBC in a few weeks. However, since then, he's been increasingly fatigued and intolerant of exercise. He presented to the ER yesterday and his hemoglobin was slightly lower than when I saw him. Iron studies this time revealed low ferritin and transferrin saturation, though again his MCV was normal and actually higher than when he had his bone marrow biopsy. He denies any hematochezia, melena, or other stool changes, though they've been a bit looser recently. He denies any anorexia or weight loss and indeed has gained a few pounds, if anything. He denies any reflux symptoms, dyspepsia, dysphagia, or nausea. He denies any obvious bleeding anywhere else. Allergies Allergy/AdvReac Type Severity Reaction Status Date / Time ALYSSA Inhibitors Allergy Unknown ANAPHYLAXIS Verified 04/02/19 13:35 Home Medications Home Medications Medication Instructions Recorded Confirmed Type albuterol sulfate 2 puff INHALATION Q4 PRN 12/14/17 04/02/19 History atorvastatin 20 mg PO HS 12/14/17 04/02/19 History diltiazem HCl 360 mg PO DAILY 12/14/17 04/02/19 History fluticasone propion-salmeterol 2 puff INHALATION Q12 12/14/17 04/02/19 History metformin 1,000 mg PO BID 12/14/17 04/02/19 History nitroglycerin 0.4 mg SUBLINGUAL DIRECTED PRN 12/14/17 04/02/19 History dapagliflozin 5 mg PO DAILY 06/13/18 04/02/19 History tiotropium bromide 2.5 2 puff INHALATION DAILY #4 gm 11/09/18 04/02/19 Rx mcg/actuation mist for inhalation Oxygen Home #1 ea 11/13/18 03/12/19 History ipratropium-albuterol 0.5 mg-3 3 ml INHALATION QID PRN #1 ml 11/13/18 04/02/19 H istory mg(2.5 mg base)/3 mL nebulization soln aspirin 81 mg tablet,delayed 81 mg PO Q2D 11/27/18 04/02/19 History release magnesium oxide 500 mg capsule 500 mg PO BID cap 11/27/18 04/02/19 History candesartan 16 mg tablet 32 mg PO DAILY tab 03/12/19 04/02/19 History Patient History Medical History Community acquired pneumonia (Resolved) COPD (chronic obstructive pulmonary disease) DM type 2 (diabetes mellitus, type 2) H/O pulmonary emphysema History of arthritis History of cardioversion History of heart attack History of pneumonia Hyperlipidemia Hypertension Hypomagnesemia Hypoxia (Resolved) Multiple pulmonary nodules determined by computed tomography of lung Peripheral neuropathy Pneumonia (Resolved) SVT (supraventricular tachycardia) Surgical History History of bone marrow biopsy History of colonoscopy History of nasal surgery Status post cataract extraction of both eyes with insertion of intraocular lens Family History Other Brain tumor Depression Hypertension Stroke Social History Preferred Language: Khmer Communication Ability: Effective 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 Operator Required: No Beliefs That Will Affect Care: None Current Living Situation: Alone Other Information That Helps Us Care for You: No Feels Safe at Home: Yes Safety Concerns: Feels Safe At This Time Smoking Status: Former smoker Tobacco Type: cigarettes ; Do You Dip or Chew Tobacco: No ; Second Hand Exposure: No ; Tobacco Cessation Education Requested by Patient: No Hx Alcohol Use: Yes Alcohol type: beer Hx Substance Use: No Review of Systems Review of Systems: All systems reviewed & are unremarkable except as noted in HPI & below Physical Exam Constitutional: healthy appearing and comfortable; no acute distress ENMT: external ear and nose normal, oropharynx normal Respiratory: normal respiratory effort, lungs clear to auscultation Cardiovascular: RRR, no murmur, no edema Gastrointestinal (Abdomen): Inspection/Auscultation: normal bowel sounds; abdomen not distended Percussion/Palpation: abdomen soft; abdomen nontender Psychiatric: A+Ox3, euthymic affect Results & Data Vital Signs (Past 12 Hours) Vital Signs Temp Pulse Resp BP Pulse Ox 04/03/19 07:41 74 16 99 04/03/19 07:16 36.5 C 65 18 151/75 H 100 04/03/19 02:33 74 18 96 04/02/19 23:32 87 16 95 04/02/19 23:27 37.0 C 67 20 147/80 H 99 Laboratory Results Abnormal lab results 04/02/19 04/02/19 04/02/19 Range/Units 12:40 12:40 12:40 RBC 2.94 L (4.7-6.1) M/uL Hgb 8.0 L (14.0-18.0) g/dL Hct 26.6 L (42-52) % MCHC 30.1 L (32-36) g/dL RDW Std Deviation 50.0 H (36.4-46.3) fL RDW Coeff of Arnoldo 15.3 H (11.5-14.5) % Lymph # (Auto) 0.82 L (1.2-3.4) K/uL Retic Hgb Content 22.2 L (28.2-36.6) pg VBG pCO2 57 H (38-50) mmHg Potassium 5.8 H (3.5-5.1) mmol/L Carbon Dioxide 33 H (21-32) mmol/L Anion Gap -1.0 L (3-11) BUN 28 H (7-18) mg/dl BUN/Creatinine Ratio 22.0 H (10-20) Glucose 145 H (70-99) mg/dl POC Glucose (70-99) Calcium (8.5-10.1) mg/dl Magnesium 2.8 H (1.8-2.4) mg/dl Iron (35-175) mcg/dl Transferrin % Sat (20-50) % Ferritin (8-388) ng/ml AST 10 L (15-37) U/L Albumin 3.3 L (3.4-5.0) gm/dl Urine Glucose (UA) (Negative) 04/02/19 04/02/19 04/02/19 Range/Units 16:58 18:22 18:22 RBC (4.7-6.1) M/uL Hgb (14.0-18.0) g/dL Hct (42-52) % MCHC (32-36) g/dL RDW Std Deviation (36.4-46.3) fL RDW Coeff of Arnoldo (11.5-14.5) % Lymph # (Auto) (1.2-3.4) K/uL Retic Hgb Content (28.2-36.6) pg VBG pCO2 (38-50) mmHg Potassium 5.5 H (3.5-5.1) mmol/L Carbon Dioxide (21-32) mmol/L Anion Gap 1.0 L (3-11) BUN 27 H (7-18) mg/dl BUN/Creatinine Ratio (10-20) Glucose 195 H (70-99) mg/dl POC Glucose 171 H (70-99) Calcium 8.2 L (8.5-10.1) mg/dl Magnesium (1.8-2.4) mg/dl Iron 33 L 18 L (35-175) mcg/dl Transferrin % Sat 5 L (20-50) % Ferritin 6.4 L (8-388) ng/ml AST (15-37) U/L Albumin (3.4-5.0) gm/dl Urine Glucose (UA) (Negative) 04/02/19 04/02/19 04/03/19 Range/Units 19:54 23:41 00:55 RBC (4.7-6.1) M/uL Hgb (14.0-18.0) g/dL Hct (42-52) % MCHC (32-36) g/dL RDW Std Deviation (36.4-46.3) fL RDW Coeff of Arnoldo (11.5-14.5) % Lymph # (Auto) (1.2-3.4) K/uL Retic Hgb Content (28.2-36.6) pg VBG pCO2 (38-50) mmHg Potassium (3.5-5.1) mmol/L Carbon Dioxide (21-32) mmol/L Anion Gap (3-11) BUN (7-18) mg/dl BUN/Creatinine Ratio (10-20) Glucose (70-99) mg/dl POC Glucose 137 H 109 H (70-99) Calcium (8.5-10.1) mg/dl Magnesium (1.8-2.4) mg/dl Iron (35-175) mcg/dl Transferrin % Sat (20-50) % Ferritin (8-388) ng/ml AST (15-37) U/L Albumin (3.4-5.0) gm/dl Urine Glucose (UA) 2+ H (Negative) 04/03/19 04/03/19 04/03/19 Range/Units 05:57 06:18 06:18 RBC 3.03 L (4.7-6.1) M/uL Hgb 8.2 L (14.0-18.0) g/dL Hct 27.9 L (42-52) % MCHC 29.4 L (32-36) g/dL RDW Std Deviation 51.6 H (36.4-46.3) fL RDW Coeff of Arnoldo 15.1 H (11.5-14.5) % Lymph # (Auto) 1.08 L (1.2-3.4) K/uL Retic Hgb Content (28.2-36.6) pg VBG pCO2 (38-50) mmHg Potassium (3.5-5.1) mmol/L Carbon Dioxide (21-32) mmol/L Anion Gap 1.0 L (3-11) BUN 28 H (7-18) mg/dl BUN/Creatinine Ratio 24.1 H (10-20) Glucose (70-99) mg/dl POC Glucose 100 H (70-99) Calcium 8.4 L (8.5-10.1) mg/dl Magnesium (1.8-2.4) mg/dl Iron (35-175) mcg/dl Transferrin % Sat (20-50) % Ferritin (8-388) ng/ml AST (15-37) U/L Albumin (3.4-5.0) gm/dl Urine Glucose (UA) (Negative) 04/03/19 Range/Units 08:27 RBC (4.7-6.1) M/uL Hgb (14.0-18.0) g/dL Hct (42-52) % MCHC (32-36) g/dL RDW Std Deviation (36.4-46.3) fL RDW Coeff of Arnoldo (11.5-14.5) % Lymph # (Auto) (1.2-3.4) K/uL Retic Hgb Content (28.2-36.6) pg VBG pCO2 (38-50) mmHg Potassium (3.5-5.1) mmol/L Carbon Dioxide (21-32) mmol/L Anion Gap (3-11) BUN (7-18) mg/dl BUN/Creatinine Ratio (10-20) Glucose (70-99) mg/dl POC Glucose 102 H (70-99) Calcium (8.5-10.1) mg/dl Magnesium (1.8-2.4) mg/dl Iron (35-175) mcg/dl Transferrin % Sat (20-50) % Ferritin (8-388) ng/ml AST (15-37) U/L Albumin (3.4-5.0) gm/dl Urine Glucose (UA) (Negative) (1) Anemia Anemia type: unspecified type Qualified Code(s): D64.9 - Anemia, unspecified
--- NOTE | 2019-04-03 11:33 | Consultation Report ---
DATE OF CONSULTATION: 04/03/2019 GASTROINTESTINAL CONSULT NOTE REASON FOR CONSULTATION: Anemia with iron deficiency and weakness. HISTORY OF PRESENT ILLNESS: The patient is a 73-year-old male who is being followed by hematology for anemia. He has had bone marrow in the past that showed decreased iron stores, but no evidence of myelodysplasia. The patient has had angioectasias of the colon treated 3 years ago on colonoscopy. He has never had an EGD. He does take a baby aspirin every other day. He presents with weakness and lethargy and was found to have anemia with low iron. Interestingly, his MCV is normal. PAST MEDICAL HISTORY: Remarkable for COPD, type 2 diabetes, arthritis. He has had an UT in the past, hyperlipidemia, hypertension, peripheral neuropathy, SVT. He has had history of nasal surgery, cataract surgery. FAMILY HISTORY: Positive for depression, hypertension, stroke, brain tumors. MEDICATIONS: Per list. ALLERGIES: ALYSSA INHIBITORS. SOCIAL HISTORY: The patient lives alone. Daughter is in the room with him. He is a former smoker, drinks beer. REVIEW OF SYSTEMS: Positive for weakness and shortness of breath with exertion. The remainder is negative. PHYSICAL EXAMINATION: GENERAL: The patient is on nasal oxygen, but ambulatory. HEART: Showed an S1 and S2. Regular rate and rhythm. LUNGS: Showed decreased breath sounds with prolonged expiratory phase. ABDOMEN: Soft and nontender. IMPRESSION AND PLAN: The patient has anemia with iron deficiency. He could have recurrent angioectasias or gastritis or an ulcer from taking baby aspirin. I plan on scheduling him for both an EGD and colonoscopy tomorrow for further evaluation.
[2019-04-03] MEDS ORDERED: SODIUM CHLORIDE 0.9% 250 ML IV PRN (12:18)
--- NOTE | 2019-04-03 15:24 | Hospitalist Progress Note ---
Date of Service April 03, 2019 Assessment & Plan (1) Anemia: Patient with normochromic, normocytic anemia Hgb = 8, HCT = 26.6. Hemoccult study performed by ER attending reported to be positive. Patient with slightly low iron and low ferritin (33 and 6.4, respectively). Transferrin saturation to be added on to labs. Reticulocyte production index equals 0.3 suggestive of hypo-proliferation. Possibly multifactorial causes of patient's anemia to include GI losses and hypo-proliferation? No laboratory evidence of hemolysis. Few schistocytes noted on automated differential. - Plan for EGD/colo tomorrow - Prep ordered by GI - Given 1 dose of IV iron today and 1 unit PRBCs (iron was ordered prior to PRBCs) -> Will follow up with heme/onc as outpatient for further IV iron. (2) Generalized weakness: Patient with generalized weakness and fatigue. Uncertain if this is related to his anemia or COPD. -Treatment of underlying medical conditions as above PT/OT evaluation appreciated (3) Acute hyperkalemia: Potassium = 5.8, was 5.5 on repeat labs. Unclear etiology. Patient's baseline potassium value seems to be approximately 4-5. Renal function is stable. No EKG changes We will administer Lasix 20 mg IV x1 dose Hold candesartan for now Repeat potassium in the morning -> Now normal. Will need to monitor when restarting ACEi. (4) COPD, severe: Patient with severe oxygen dependent COPD, PFTs 05/23/2018 with FEV1 to FVC of 34%, FEV1 of 31%. Reported to be hypoxic earlier today at 85%. Presently saturating well on baseline 3 L. Diffuse wheezing noted on lung exam with prolonged expiratory phase. Continue supplemental oxygen, goal saturation of 88 to 92% DuoNeb every 4 hours Albuterol every 2 hours as needed Mucinex 600 mg p.o. twice daily Continue Advair Will hold systemic steroids for now -> Breathing comfortably. Minimal wheezing today. Continue plan. (5) Coronary artery disease: Chronic. Stable. Patient denies chest pain. No EKG evidence of acute ischemia. Patient allergic to ALYSSA inhibitors Continue aspirin 81 mg p.o. every other day Continue atorvastatin 21 mg p.o. nightly Holding candesartan due to hyperkalemia as described above Consider initiating cardioselective beta-sawyer prior to discharge and patient with CAD, may also improve COPD in the long run. (6) WENDY (obstructive sleep apnea): Moderate obstructive sleep apnea with nocturnal hypoxia and periodic limb movement disorder per sleep study performed 06/02/2018. CPAP recommended. Patient has been unable to tolerate. Encourage use if tolerated (7) Hypertension: Blood pressure stable - Getting higher off candesartan. Holding candesartan as above Continue diltiazem Continue to monitor (8) Hyperlipidemia: Chronic. Stable. Continue atorvastatin (9) DM type 2 (diabetes mellitus, type 2): Chronic. Blood sugar mildly elevated at 195. Patient on dapagliflozin and metformin as outpatient. Last hemoglobin A1c on 06/18/2018 was 8. Hold dapagliflozin and metformin while inpatient Lantus 7 units twice daily -> Cut to HS for being NPO tomorrow for his procedure. He will get Lantus 7 units tonight, but then none in the morning. Insulin sliding scale Consistent carb diet as tolerated (10) Chronic diastolic CHF (congestive heart failure): Patient does not appear to be volume overloaded at this time. Continue to monitor Echocardiogram to assess for pulmonary hypertension (11) SVT (supraventricular tachycardia): Remote history of SVT. Patient presently in normal sinus rhythm. Continue Diltiazem 360mg po daily Ppx - Low risk for DVT Code - Full Dispo - Admit to medical floor Subjective Doing well today. Tired still, but otherwise well. Reports no fevers/chills, chest pain, shortness of breath, abdominal pain, nausea, or vomiting. Physical Exam Constitutional: WD/WN, vitals as above Eyes: EOM intact bilaterally; no conjunctival abnormality ENMT: external ear and nose normal, oropharynx normal Neck: trachea midline, no thyromegaly normal visual inspection Respiratory: normal respiratory effort, lungs clear to auscultation no respiratory distress Cardiovascular: RRR, no murmur, no edema Gastrointestinal (Abdomen): Inspection/Auscultation: abdomen normal to inspection; abdomen not distended Musculoskeletal: no cyanosis or clubbing, extremities motor strength 5/5 Skin: no rashes, warm and dry Neurologic: moves all extremities and awake Psychiatric: Orientation: alert, oriented to person and cooperative Results & Data Vital Signs (Past 12 Hours) Vital Signs Temp Pulse Pulse Resp BP BP Pulse Ox 04/03/19 15:16 36.6 C 62 18 159/79 H 100 01/01/20 14:29 76 18 93 04/03/19 14:01 36.6 C 60 18 154/75 H 96 04/03/19 11:57 86 16 96 04/03/19 07:41 74 16 99 04/03/19 07:16 36.5 C 65 18 151/75 H 100 PG Care Time/CCT Total # of Minutes Spent Total Time Spent with Patient: Total time spent is greater than 50% in coordination of care (as documented) at patient's floor/unit and/or counseling patient: (1) Anemia Anemia type: unspecified type Qualified Code(s): D64.9 - Anemia, unspecified (2) Coronary artery disease Coronary Disease-Associated Artery/Lesion type: cahto artery [place] vs. transplanted heart: cahto heart Associated angina: without angina Qualified Code(s): I25.10 - Atherosclerotic heart disease of cahto coronary artery without angina pectoris (3) Hypertension Hypertension type: essential hypertension Qualified Code(s): I10 - Essential (primary) hypertension (4) Hyperlipidemia Hyperlipidemia type: unspecified Qualified Code(s): E78.5 - Hyperlipidemia, unspecified (5) DM type 2 (diabetes mellitus, type 2) Diabetes mellitus fci insulin use: without fci use Diabetes mellitus complication status: without complication Qualified Code(s): E11.9 - Type 2 diabetes mellitus without complications
[2019-04-03] MEDS: LAVAGE SOLUTION 4000ML PO SCH (17:04)
[2019-04-03] MEDS: ATORVASTATIN 20 MG TAB PO SCH (20:51)
[2019-04-04] MEDS: INSULIN ASPART 100 UNITS/ML 3 ML PEN SC SCH ×5 (00:12→21:08)
[2019-04-04] MEDS: ALBUT/IPRATROP 3MG/0.5MG NEB 3 ML VIAL NEB SCH ×6 (02:03→22:20)
[2019-04-04] MEDS: DEXTROSE 50% 50 ML SYRINGE IV PRN ×2 (03:01→11:52)
[2019-04-04] MEDS: LAVAGE SOLUTION 4000ML PO SCH (06:26)
[2019-04-04 06:59] LABS: Hematocrit (blood only) 32.3 % (42-52); Hemoglobin 9.8 g/dL (14.0-18.0); Mean Corpuscular Hemoglobin 27.1 pg (25-34); Mean Corpuscular Hgb Conc 30.3 g/dL (32-36); Mean Corpuscular Volume 89.5 fL (80-100); Mean Platelet Volume 9.9 fL (7.4-10.4); Platelet Count 225 K/uL (130-400); RDW Coefficient of Variation 14.7 % (11.5-14.5); RDW Standard Deviation 48.4 fL (36.4-46.3); Red Blood Count 3.61 M/uL (4.7-6.1)
[2019-04-04 07:36] LABS: BUN Creatinine Ratio 16.9 (10-20); Calcium 8.6 mg/dl (8.5-10.1); Creatinine Clr Calc Pharmacy 78.4 ml/min; Est GFR (African American) 97.9; Est GFR (Non-African American) 84.5; Magnesium 2.2 mg/dl (1.8-2.4); Phosphorus 3.3 mg/dl (2.5-4.9); Potassium 4.4 mmol/L (3.5-5.1)
[2019-04-04] MEDS: IRON SUCROSE 200 MG in 0.9 % SODIUM CHLORIDE 100 ML IV SCH (09:36)
[2019-04-04] MEDS: dilTIAZem HCL 180 MG CAPCR PO SCH (09:37)
[2019-04-04] MEDS: FLUTICASONE/SALMETEROL 100/50 (ADVAIR) 14 PUFF/1 INHALER INH SCH ×2 (09:37→21:07)
[2019-04-04] MEDS: guaiFENesin 600 MG TABCR PO SCH ×2 (09:37→21:09)
[2019-04-04] MEDS: LOSARTAN POTASSIUM 50 MG TAB PO SCH (10:50)
[2019-04-04] MEDS ORDERED: D5W AND NSS 1,000 ML IV SCH (11:45)
[2019-04-04] MEDS ORDERED: PROPOFOL IV EMULSION 10 MG/ML 20 ML VIAL IV ONE ×2 (13:56→14:41)
[2019-04-04] MEDS ORDERED: LIDOCAINE HCL 2% 2 ML VIAL/AMP(20MG/ML) INFIL ONE (13:56)
--- NOTE | 2019-04-04 14:33 | Anesthesiology Consultation ---
Date of Service April 04, 2019 Assessment & Plan (1) Encounter for pre-operative examination: Chart Review Chart Review: Acceptable Risk for Surgery and Patient NOT seen in Pre Admission Testing Consults Requested none History Surgery Operation Date: 04/04/19 17:45 Proposed Procedures p Colonoscopy EGD Dr Montana Boyle Height/Weight Height: 5 ft 8 in Weight: 83.6 kg Allergies Allergy/AdvReac Type Severity Reaction Status Date / Time ALYSSA Inhibitors Allergy Unknown ANAPHYLAXIS Verified 04/02/19 13:35 Medications Home Medications Medication Instructions Recorded Confirmed Last Taken albuterol sulfate 2 puff INHALATION Q4 PRN 12/14/17 04/02/19 Unknown atorvastatin 20 mg PO HS 12/14/17 04/02/19 Unknown diltiazem HCl 360 mg PO DAILY 12/14/17 04/02/19 Unknown fluticasone propion-salmeterol 2 puff INHALATION Q12 12/14/17 04/02/19 Unknown metformin 1,000 mg PO BID 12/14/17 04/02/19 Unknown nitroglycerin 0.4 mg SUBLINGUAL DIRECTED PRN 12/14/17 04/02/19 Unknown dapagliflozin 5 mg PO DAILY 06/13/18 04/02/19 Unknown tiotropium bromide 2.5 2 puff INHALATION DAILY #4 gm 11/09/18 04/02/19 Unknown mcg/actuation mist for inhalation Oxygen Home #1 ea 11/13/18 03/12/19 Unknown ipratropium-albuterol 0.5 mg-3 3 ml INHALATION QID PRN #1 ml 11/13/18 04/02/19 Unknown mg(2.5 mg base)/3 mL nebulization soln aspirin 81 mg tablet,delayed 81 mg PO Q2D 11/27/18 04/02/19 Unknown release magnesium oxide 500 mg capsule 500 mg PO BID cap 11/27/18 04/02/19 Unknown candesartan 16 mg tablet 32 mg PO DAILY tab 03/12/19 04/02/19 Unknown Active Medications Generic Name Dose Route Start Last Admin Trade Name Freq PRN Reason Stop Dose Admin Albuterol 3 ml 04/02/19 19:00 04/04/19 11:22 Duoneb NEB 05/02/19 18:59 3 ml Q4R RICHARD Administration Albuterol 2.5 mg 04/02/19 16:39 04/02/19 17:02 Ventolin 0.5% 2.5mg/0.5ml NEB 05/02/19 16:38 2.5 mg Q2H PRN Administration SOB/Wheeze Atorvastatin Calcium 20 mg 04/02/19 21:00 04/03/19 20:51 Lipitor PO 05/02/19 20:59 20 mg HS RICHARD Administration Dextrose 25 - 50 ml 04/02/19 16:39 04/04/19 11:52 Dextrose 50% IV 05/02/19 16:38 25 ml UD PRN Administration Hypoglycemia Protocol Protocol Diltiazem HCl 360 mg 04/03/19 09:00 04/04/19 09:37 Cardizem Cd PO 05/03/19 08:59 360 mg DAILY RICHARD Administration Guaifenesin 600 mg 04/02/19 21:00 04/04/19 09:37 Mucinex PO 05/02/19 20:59 600 mg Q12 RICHARD Administration Iron Sucrose 200 mg/ Sodium 110 mls @ 220 mls/hr 04/03/19 11:00 04/04/19 10:26 Chloride IV 04/05/19 09:29 Infused QAM RICHARD Infusion Dextrose/Sodium Chloride 1,000 mls @ 60 mls/hr 04/04/19 11:45 04/04/19 12:01 D5w And Nss IV 05/04/19 11:44 60 mls/hr .[id number] RICHARD Administration Insulin Aspart 0 units 04/04/19 00:00 04/04/19 12:01 Novolog Flexpen SC 05/04/19 00:00 Not Given Q6 RICHARD Insulin Glargine 7 units 04/03/19 21:00 04/03/19 20:52 Lantus Solostar Pen SQ 05/03/19 20:59 7 units HS RICHARD Administration Losartan Potassium 100 mg 04/04/19 10:30 04/04/19 10:50 Cozaar PO 05/04/19 10:29 100 mg QAM RICHARD Administration Miscellaneous 1 ea 04/03/19 00:00 04/04/19 08:48 Order Awaiting Action N/A 05/03/19 00:00 Not Given QS RICHARD Miscellaneous 15 - 30 gm 04/02/19 16:39 04/04/19 00:00 Carbohydrates For Hypoglycemia PO 05/02/19 16:38 15 gm UD PRN Administration Hypoglycemia Protocol Fluticasone/Salmeterol 2 puffs 04/02/19 21:00 04/04/19 09:37 Advair Diskus 100/50 INH 05/02/19 20:59 2 puffs BID RICHARD Administration Past Medical History Medical History Community acquired pneumonia (Resolved) COPD (chronic obstructive pulmonary disease) DM type 2 (diabetes mellitus, type 2) H/O pulmonary emphysema History of arthritis History of cardioversion History of heart attack History of pneumonia Hyperlipidemia Hypertension Hypomagnesemia Hypoxia (Resolved) Multiple pulmonary nodules determined by computed tomography of lung Peripheral neuropathy Pneumonia (Resolved) SVT (supraventricular tachycardia) Past Family History Family History Other Brain tumor Depression Hypertension Stroke Past Surgical History Surgical History History of bone marrow biopsy History of colonoscopy History of nasal surgery Status post cataract extraction of both eyes with insertion of intraocular lens Social History Smoking Status: Former smoker tobacco type: cigarettes Do You Dip or Chew Tobacco: No Hx Alcohol Use: Yes Alcohol type: beer alcohol intake frequency: holidays/special occasions only Hx Substance Use: No Physical Exam Vital Signs Last Vital Signs Temp 36.7 C 04/04/19 10:09 Pulse 65 04/04/19 11:24 Resp 18 04/04/19 11:24 BP 153/89 H 04/04/19 10:49 Pulse Ox 97 04/04/19 11:24 Testing Laboratory Results 04/04/19 06:29 04/04/19 06:29 PT 10.9 Seconds (9.0-12.0) 04/02/19 12:40 INR 1.1 (0.9-1.1) 04/02/19 12:40 APTT 25.4 Seconds (21.0-31.0) 04/02/19 12:40 Urine Color Yellow 04/03/19 00:55 Urine Appearance Clear (Clear) 04/03/19 00:55 Urine pH 6.0 (4.5-7.5) 04/03/19 00:55 Ur Specific [place] 1.011 (1.000-1.030) 04/03/19 00:55 Urine Protein Negative (Negative) 04/03/19 00:55 Urine Glucose (UA) 2+ (Negative) H 04/03/19 00:55 Urine Ketones Negative (Negative) 04/03/19 00:55 Urine Nitrite Negative (Negative) 04/03/19 00:55 Ur Leukocyte Esterase Negative (Negative) 04/03/19 00:55 Blood Type O Positive 04/02/19 12:41 Antibody Screen NEGATIVE 04/02/19 12:41 04/02/19 12:28 Aerobic Blood Culture - Preliminary Blood No growth in Aerobic bottle after 48 hours. Anaerobic Blood Culture - Preliminary No growth in Anaerobic bottle after 48 hours. 04/02/19 12:28 Aerobic Blood Culture - Preliminary Blood No growth in Aerobic bottle after 48 hours. Anaerobic Blood Culture - Preliminary No growth in Anaerobic bottle after 48 hours. 04/04/19 04/04/19 04/04/19 11:18 11:17 06:21 POC Glucose 62 L* 62 L* 82 04/04/19 04/04/19 03:43 02:57 POC Glucose 123 H 49 L*
[2019-04-04] MEDS ORDERED: ATROPINE SULFATE 0.1 MG/ML 10ML SYR IV PRN (14:35)
[2019-04-04] MEDS ORDERED: ePHEDrine sulfate 50 MG/ML AMP IV PRN (14:35)
--- NOTE | 2019-04-04 15:24 | Anesthesiology Progress Note ---
Date of Service April 04, 2019 Anesthesia Post Procedure Vital Signs Vital Signs: Temp Pulse Pulse Pulse Resp BP BP 04/04/19 14:26 36.7 C 69 20 157/69 H 04/04/19 11:24 65 18 04/04/19 10:49 04/04/19 10:09 36.7 C 73 18 04/04/19 09:35 36.3 C L 68 18 174/77 H 04/04/19 07:14 36.6 C 64 20 04/04/19 07:06 68 18 04/04/19 02:04 63 16 04/03/19 22:44 36.7 C 57 L 18 04/03/19 22:14 62 16 04/03/19 19:08 60 16 04/03/19 16:37 36.4 C L 65 18 156/77 H 04/03/19 15:35 36.6 C 60 18 160/79 H BP Pulse Ox 04/04/19 14:26 94 04/04/19 11:24 97 04/04/19 10:49 153/89 H 04/04/19 10:09 154/77 H 100 04/04/19 09:35 98 04/04/19 07:14 155/72 H 96 04/04/19 07:06 94 04/04/19 02:04 93 04/03/19 22:44 150/85 H 99 04/03/19 22:14 98 04/03/19 19:08 94 04/03/19 16:37 96 04/03/19 15:35 97 Transfer of Care Handoff Completed per policy Notes Mental Status: alert / awake / arousable Patient Amnestic to Procedure: Yes Nausea / Vomiting: adequately controlled Pain: adequately controlled Airway Patency, RR, SpO2: stable & adequate BP & HR: stable & adequate Hydration State: stable & adequate Anesthetic Complications: no major complications apparent and Pt Satisfied with anesthetic care
--- NOTE | 2019-04-04 15:36 | GI REPORT ---
Patient Name: Kristopher Louie Procedure Date: 04/04/2019 3:00 PM Date of : 1945 Admit Type: Inpatient Age: 73 Gender: Male Attending MD: Dashawn Boyle MD Procedure: Upper GI endoscopy Providers: Dashawn Boyle MD Referring MD: Eitan Pulido M.d. Indications: Iron deficiency anemia Medicines: Propofol total dose 320 mg IV, Lidocaine 40 mg IV Complications: No immediate complications. Estimated Blood Loss: Estimated blood loss was minimal. Procedure: Pre-Anesthesia Assessment: - Prior to the procedure, a History and Physical was performed, and patient medications, allergies and sensitivities were reviewed. The patient's tolerance of previous anesthesia was reviewed. - The risks and benefits of the procedure and the sedation options and risks were discussed with the patient. All questions were answered and informed consent was obtained. After obtaining informed consent, the endoscope was passed under direct vision. Throughout the procedure, the patient's blood pressure, pulse, and oxygen saturations were monitored continuously. The Endoscope was introduced through the mouth, and advanced to the second part of duodenum. The upper GI endoscopy was accomplished without difficulty. The patient tolerated the procedure well. Findings: The Z-line was regular and was found 48 cm from the incisors. The examined esophagus was normal. The entire examined stomach was normal. The second portion of the duodenum was normal. Biopsies for histology were taken with a cold forceps for evaluation of celiac disease. Estimated blood loss was minimal. Impression: - Z-line regular, 48 cm from the incisors. - Normal esophagus. - Normal stomach. - Normal second portion of the duodenum. Biopsied. Recommendation: - Continue present medications. - Await pathology results. - [facility]. Dashawn Boyle M.D. Dashawn Boyle MD 04/04/2019 3:36:12 PM This report has been signed electronically. Note Initiated On: 04/04/2019 3:00 PM Number of Addenda: 0 I attest to the content of the Intraoperative Record and orders documented therein, exceptions below {[id number]}
--- NOTE | 2019-04-04 15:40 | GI REPORT ---
Patient Name: Kristopher Louie Procedure Date: 04/04/2019 2:58 PM Date of : 1945 Admit Type: Inpatient Age: 73 Gender: Male Attending MD: Dashawn Boyle MD Procedure: Colonoscopy Providers: Dashawn Boyle MD Referring MD: Eitan Pulido M.d. Indications: Iron deficiency anemia Medicines: Propofol total dose 320 mg IV, Lidocaine 40 mg IV Complications: No immediate complications. Estimated Blood Loss: Estimated blood loss: none. Procedure: Pre-Anesthesia Assessment: - Prior to the procedure, a History and Physical was performed, and patient medications, allergies and sensitivities were reviewed. The patient's tolerance of previous anesthesia was reviewed. - The risks and benefits of the procedure and the sedation options and risks were discussed with the patient. All questions were answered and informed consent was obtained. After I obtained informed consent, the scope was passed under direct vision. Throughout the procedure, the patient's blood pressure, pulse, and oxygen saturations were monitored continuously. The Colonoscope was introduced through the anus and advanced to the terminal ileum. The colonoscopy was performed without difficulty. The patient tolerated the procedure well. The quality of the bowel preparation was good. Findings: The terminal ileum appeared normal. Two medium-sized localized angioectasias without bleeding were found in the cecum. Coagulation for bleeding prevention using bipolar probe was successful. Estimated blood loss: none. A 3 mm polyp was found in the transverse colon. The polyp was sessile. The polyp was removed with a cold biopsy forceps. Resection and retrieval were complete. Estimated blood loss: none. A 3 mm polyp was found in the cecum. The polyp was sessile. The polyp was removed with a cold biopsy forceps. Resection and retrieval were complete. Estimated blood loss: none. Impression: - The examined portion of the ileum was normal. - Two non-bleeding colonic angioectasias. Treated with bipolar cautery. - One 3 mm polyp in the transverse colon, removed with a cold biopsy forceps. Resected and retrieved. - One 3 mm polyp in the cecum, removed with a cold biopsy forceps. Resected and retrieved. Recommendation: - Return patient to [facility] for [facility] care. Sissy Mercado MD 04/04/2019 3:39:41 PM This report has been signed electronically. Note Initiated On: 04/04/2019 2:58 PM Number of Addenda: 0 I attest to the content of the Intraoperative Record and orders documented therein, exceptions below {[id number]}
--- NOTE | 2019-04-04 16:08 | Progress Note ---
DATE: 04/04/2019 The patient presented to the endoscopy unit today for EGD and colonoscopy for his iron-deficiency anemia. The patient underwent an EGD, which was normal. Biopsies of the small intestine were obtained to rule out malabsorptive disease such as celiac. The colonoscopy was subsequently performed and the prep was good. There were no diverticulosis or other inflammatory lesions. There were 2 small polyps, each 3 mm, one in the transverse and one in the cecum that were both removed with biopsy forceps. In the cecum, there were 2 medium-sized angioectasias with no stigmata of active bleeding. These were cauterized and fulgurated with obliteration with bipolar cautery. Terminal ileum was entered and was normal. IMPRESSION: The patient has 2 cecal angioectasias, which were cauterized. This is most likely the source of his anemia and blood loss. These were cauterized and hopefully will resolve his issue.
[2019-04-04] MEDS ORDERED: Nursing to Pharmacy Communication ONE (16:52)
[2019-04-04] MEDS: INSULIN GLARGINE SOLOSTAR 100 UNITS/ML 3 ML PEN SQ SCH (21:07)
[2019-04-04] MEDS: ATORVASTATIN 20 MG TAB PO SCH (21:09)
--- NOTE | 2019-04-04 23:21 | Hospitalist Progress Note ---
Date of Service April 04, 2019 Assessment & Plan (1) Anemia: Patient with normochromic, normocytic anemia Hgb = 8, HCT = 26.6. Hemoccult study performed by ER attending reported to be positive. Patient with slightly low iron and low ferritin (33 and 6.4, respectively). Transferrin saturation to be added on to labs. Reticulocyte production index equals 0.3 suggestive of hypo-proliferation. Possibly multifactorial causes of patient's anemia to include GI losses and hypo-proliferation? No laboratory evidence of hemolysis. Few schistocytes noted on automated differential. - Colonoscopy: Two non-bleeding colonic angioectasias. Treated with bipolar cautery. - One 3 mm polyp in the transverse colon, removed with a cold biopsy forceps. Resected and retrieved. - One 3 mm polyp in the cecum, removed with a cold biopsy forceps. Resected and retrieved. Will advance diet slowly. (2) Generalized weakness: Patient with generalized weakness and fatigue. Uncertain if this is related to his anemia or COPD. -Treatment of underlying medical conditions as above PT/OT evaluation appreciated (3) Acute hyperkalemia: Potassium = 5.8, was 5.5 on repeat labs. Unclear etiology. Patient's baseline potassium value seems to be approximately 4-5. Renal function is stable. No EKG changes We will administer Lasix 20 mg IV x1 dose Hold candesartan for now Repeat potassium in the morning -> Now normal. Will need to monitor when restarting ACEi. (4) COPD, severe: Patient with severe oxygen dependent COPD, PFTs 05/23/2018 with FEV1 to FVC of 34%, FEV1 of 31%. Reported to be hypoxic earlier today at 85%. Presently saturating well on baseline 3 L. Diffuse wheezing noted on lung exam with prolonged expiratory phase. His wheezing has improved. Continue supplemental oxygen, goal saturation of 88 to 92% DuoNeb every 4 hours Albuterol every 2 hours as needed Mucinex 600 mg p.o. twice daily Continue Advair Will hold systemic steroids for now -> Breathing comfortably. . (5) Coronary artery disease: COPD with exacerbation Chronic. Stable. Patient denies chest pain. No EKG evidence of acute ischemia. Patient allergic to ALYSSA inhibitors Continue aspirin 81 mg p.o. every other day Continue atorvastatin 21 mg p.o. nightly Holding candesartan due to hyperkalemia as described above Consider initiating cardioselective beta-sawyer prior to discharge and patient with CAD, may also improve COPD in the long run. (6) WENDY (obstructive sleep apnea): Moderate obstructive sleep apnea with nocturnal hypoxia and periodic limb movement disorder per sleep study performed 06/02/2018. CPAP recommended. Patient has been unable to tolerate. Encourage use if tolerated (7) Hypertension: Blood pressure stable - Getting higher off candesartan. Holding candesartan as above Continue diltiazem Continue to monitor (8) Hyperlipidemia: Chronic. Stable. Continue atorvastatin (9) DM type 2 (diabetes mellitus, type 2): Chronic. Blood sugar mildly elevated at 195. Patient on dapagliflozin and metformin as outpatient. Last hemoglobin A1c on 06/18/2018 was 8. Hold dapagliflozin and metformin while inpatient Lantus 7 units twice daily -> Cut to HS for being NPO tomorrow for his pr ocedure. He will get Lantus 7 units tonight, but then none in the morning. Insulin sliding scale Consistent carb diet as tolerated (10) Chronic diastolic CHF (congestive heart failure): Patient does not appear to be volume overloaded at this time. Continue to monitor Echocardiogram to assess for pulmonary hypertension (11) SVT (supraventricular tachycardia): Remote history of SVT. Patient presently in normal sinus rhythm. Continue Diltiazem 360mg po daily Ppx - Low risk for DVT Code - Full Subjective 73 yo male reports feeling better. He denies any new symptoms. His main complaint is that he is hungry. Review of Systems Review of Systems: All systems reviewed & are unremarkable except as noted in HPI & below Physical Exam Physical Exam: Constitutional: WD/WN, vitals as above Eyes: EOM intact bilaterally; no conjunctival abnormality ENMT: external ear and nose normal, oropharynx normal Neck: trachea midline, no thyromegaly normal visual inspection Respiratory: normal respiratory effort, lungs clear to auscultation no respiratory distress Cardiovascular: RRR, no murmur, no edema Gastrointestinal (Abdomen): Inspection/Auscultation: abdomen normal to inspection; abdomen not distended Musculoskeletal: no cyanosis or clubbing, extremities motor strength 5/5 Skin: no rashes, warm and dry Neurologic: moves all extremities and awake Psychiatric: Orientation: alert, oriented to person and cooperative Results & Data Vital Signs (Past 12 Hours) Vital Signs Temp Pulse Pulse Resp BP Pulse Ox 04/04/19 22:20 65 14 96 04/04/19 22:19 36.4 C L 68 18 150/72 H 94 04/04/19 19:00 73 16 93 04/04/19 16:25 36.4 C L 67 19 164/71 H 90 04/04/19 16:04 63 16 146/67 H 95 04/04/19 15:49 63 16 135/63 94 04/04/19 15:34 36.7 C 69 16 122/61 98 04/04/19 14:26 36.7 C 69 20 157/69 H 94 04/04/19 11:24 65 18 97 PG Care Time/CCT Total # of Minutes Spent Total Time Spent with Patient: Total time spent is greater than 50% in coordination of care (as documented) at patient's floor/unit and/or counseling patient: (1) DM type 2 (diabetes mellitus, type 2) Diabetes mellitus complication status: without complication Diabetes mellitus penitentiary insulin use: without penitentiary use Qualified Code(s): E11.9 - Type 2 diabetes mellitus without complications (2) Coronary artery disease Associated angina: without angina Coronary Disease-Associated Artery/Lesion type: [place] artery [place] vs. transplanted heart: [place]q heart Qualified Code(s): I25.10 - Atherosclerotic heart disease of [place]q coronary artery without angina pectoris (3) Anemia Anemia type: unspecified type Qualified Code(s): D64.9 - Anemia, unspecified (4) Hyperlipidemia Hyperlipidemia type: unspecified Qualified Code(s): E78.5 - Hyperlipidemia, unspecified (5) Hypertension Hypertension type: essential hypertension Qualified Code(s): I10 - Essential (primary) hypertension
[2019-04-05] MEDS: ALBUT/IPRATROP 3MG/0.5MG NEB 3 ML VIAL NEB SCH ×4 (02:14→15:13)
[2019-04-05] MEDS: dilTIAZem HCL 180 MG CAPCR PO SCH (07:39)
[2019-04-05] MEDS: guaiFENesin 600 MG TABCR PO SCH (07:39)
[2019-04-05] MEDS: FLUTICASONE/SALMETEROL 100/50 (ADVAIR) 14 PUFF/1 INHALER INH SCH (07:39)
[2019-04-05] MEDS: INSULIN ASPART 100 UNITS/ML 3 ML PEN SC SCH ×2 (08:49→13:02)
[2019-04-05] MEDS: IRON SUCROSE 200 MG in 0.9 % SODIUM CHLORIDE 100 ML IV SCH (08:54)
[2019-04-05] MEDS: LOSARTAN POTASSIUM 50 MG TAB PO SCH (09:19)
--- NOTE | 2019-04-05 15:25 | Gastroenterology Progress Note ---
Date of Service April 05, 2019 Assessment & Plan (1) Iron deficiency anemia due to chronic blood loss: Can be explained by cecal AVMs colon polyps await path other problems per hospitalist. Will sign off. Please call for further questions. Subjective cc f/u Fe def anemia HPI Pt denies abd pain. Tolerated solid diet for lunch. Pt is s/p EGD and colo 1/2. EGD neg. [place] polyps removed with cold forceps and cecal AVMs cauterized. Review of Systems Respiratory: SOB improvinb Cardiovascular: no chest pain Physical Exam Respiratory: normal respiratory effort, lungs clear to auscultation Cardiovascular: RRR, no murmur, no edema Gastrointestinal (Abdomen): normal bowel sounds, soft, nontender, no hepatosplenomegaly Results & Data Vital Signs (Past 12 Hours) Vital Signs Temp Pulse Resp BP Pulse Ox 04/05/19 15:16 71 18 97 04/05/19 14:37 36.6 C 79 18 145/69 H 97 04/05/19 11:10 76 18 90 04/05/19 07:10 67 18 93 04/05/19 07:00 36.8 C 68 18 152/71 H 96
--- NOTE | 2019-04-10 21:55 | Discharge Summary ---
Date of Service April 05, 2019 Admission HPI Per Admitting Provider Kristopher Louie is a pleasant 73-year-old male with history of COPD on 3 L of oxygen, hypertension/hyperlipidemia/diabetes/CAD and anemia presenting with shortness of breath. Family reports that patient's symptoms began last spring after he was hospitalized for pneumonia and a COPD exacerbation. During that hospital stay he was treated with a course of antibiotics and steroid taper and discharged home. He was readmitted shortly after discharge for blood sugar management and steroid-induced hyperglycemia. During those hospital stays patient was found to be anemic with hemoglobin of 8.9-10 and was subsequently referred to Hematology for work-up. He was seen in July 2018. He had a bone marrow biopsy performed on 09/18/2018 which showed mildly hypercellular marrow with trilineage hematopoiesis, mild erythroid hyperplasia, decreased iron stores, and no evidence of myelodysplasia by morphology or MDS FISH panel. He was followed with serial CBCs. Most recently seen by Hematology on 03/11/2019 with shortness of breath and decreased H&H (Hgb 8.5, HCT 28.3 at that time). Patient thought to be having a COPD exacerbation at that time and was seen by pulmonary on 03/12/2019 and given a prescription for doxycycline and a prednisone taper. Patient had another CBC performed today which showed worsening anemia, Hgb = 8, HCT = 26.6 therefore he came to the ER. His symptoms are mostly increased lethargy. Family reports that he sleeps all day and has difficulty performing his ADLs. He is also complaining of worsening shortness of breath, dyspnea on exertion and decreased exercise tolerance. He has been using his nebulizers at home with minimal improvement in symptoms. He reports a stable cough with stable sputum production, no purulence/hemoptysis/increase in sputum. He denies worsening wheeze. He denies blood loss, specifically no hematemesis/melena/hematochezia. No hematuria/bleeding/bruising. He is no longer taking iron supplementation. Last colonoscopy performed in 2015 reported angioma ectasias. Repeat scheduled for 2020 ER course: Normal saline Principal Diagnosis Anemia secondary to GI bleed Discharge Exam Constitutional: WD/WN, vitals as above Eyes: EOM intact bilaterally; no conjunctival abnormality ENMT: external ear and nose normal, oropharynx normal Neck: trachea midline, no thyromegaly normal visual inspection Respiratory: normal respiratory effort, lungs clear to auscultation no respiratory distress Cardiovascular: RRR, no murmur, no edema Gastrointestinal (Abdomen): Inspection/Auscultation: abdomen normal to inspection; abdomen not distended Musculoskeletal: no cyanosis or clubbing, extremities motor strength 5/5 Skin: no rashes, warm and dry Neurologic: moves all extremities and awake Psychiatric: Orientation: alert, oriented to person and cooperative Discharge Data Allergies Allergy/AdvReac Type Severity Reaction Status Date / Time ALYSSA Inhibitors Allergy Unknown ANAPHYLAXIS Verified 04/02/19 13:35 Consultations 04/02/19 14:19 ED Decision to Admit Stat 04/02/19 16:39 Consult Gastroenterology Routine Consult Hematology Routine Procedures Performed Operation Date: 04/04/19 17:45 Actual Procedures p EGD Biopsy Cytology - [facility] Colonoscopy Polypectomy - [facility] Course (1) Anemia: Patient with normochromic, normocytic anemia Hgb = 8, HCT = 26.6. Hemoccult study performed by ER attending reported to be positive. Patient with slightly low iron and low ferritin (33 and 6.4, respectively). Transferrin saturation to be added on to labs. Reticulocyte production index equals 0.3 suggestive of hypo-proliferation. Possibly multifactorial causes of patient's anemia to include GI losses and hypo-proliferation? No laboratory evidence of hemolysis. Few schistocytes noted on automated differential. - Colonoscopy: Two non-bleeding colonic angioectasias. Treated with bipolar cautery. - One 3 mm polyp in the transverse colon, removed with a cold biopsy forceps. Resected and retrieved. - One 3 mm polyp in the cecum, removed with a cold biopsy forceps. Resected and retrieved. will discharge on iron tablets will recommend to check hemoglobin in 1 week.. (2) Generalized weakness: Patient with generalized weakness and fatigue. Uncertain if this is related to his anemia or COPD. -Treatment of underlying medical conditions as above PT/OT evaluation appreciated (3) Acute hyperkalemia: Potassium = 5.8, was 5.5 on repeat labs. Unclear etiology. Patient's baseline potassium value seems to be approximately 4-5. Renal function is stable. No EKG changes We will administer Lasix 20 mg IV x1 dose Hold candesartan for now Repeat potassium in the morning -> Now normal. Will need to monitor as outpatient due to restarting ACEi on discharge. (4) COPD, severe: Patient with severe oxygen dependent COPD, PFTs 05/23/2018 with FEV1 to FVC of 34%, FEV1 of 31%. Reported to be hypoxic earlier today at 85%. Presently saturating well on baseline 3 L. Diffuse wheezing noted on lung exam with prolonged expiratory phase. His wheezing has improved. Continue supplemental oxygen, goal saturation of 88 to 92% DuoNeb every 4 hours Albuterol every 2 hours as needed Mucinex 600 mg p.o. twice daily Continue Advair Will hold systemic steroids for now -> Breathing comfortably. . (5) Coronary artery disease: COPD with exacerbation Chronic. Stable. Patient denies chest pain. No EKG evidence of acute ischemia. Patient allergic to ALYSSA inhibitors Continue aspirin 81 mg p.o. every other day Continue atorvastatin 21 mg p.o. nightly Holding candesartan due to hyperkalemia as described above Consider initiating cardioselective beta-sawyer prior to discharge and patient with CAD, may also improve COPD in the long run. (6) WENDY (obstructive sleep apnea): Moderate obstructive sleep apnea with nocturnal hypoxia and periodic limb movement disorder per sleep study performed 06/02/2018. CPAP recommended. Patient has been unable to tolerate. Encourage use if tolerated (7) Hypertension: Blood pressure stable - Getting higher off candesartan. Holding candesartan as above Continue diltiazem Continue to monitor (8) Hyperlipidemia: Chronic. Stable. Continue atorvastatin (9) DM type 2 (diabetes mellitus, type 2): Chronic. Blood sugar mildly elevated at 195. Patient on dapagliflozin and metformin as outpatient. Last hemoglobin A1c on 06/18/2018 was 8. Hold dapagliflozin and metformin while inpatient Lantus 7 units twice daily -> Cut to HS for being NPO tomorrow for his procedure. He will get Lantus 7 units tonight, but then none in the morning. Insulin sliding scale Consistent carb diet as tolerated (10) Chronic diastolic CHF (congestive heart failure): Patient does not appear to be volume overloaded at this time. Continue to monitor Echocardiogram to assess for pulmonary hypertension (11) SVT (supraventricular tachycardia): Remote history of SVT. Patient presently in normal sinus rhythm. Continue Diltiazem 360mg po daily Total Time Total Time Spent Total Time Spent (In Minutes): 35 Total Time Includes: Examination of the Patient, Discharge Planning and Medication Reconciliation Discharge Plan Discharge Items Patient Disposition: Home - Self-Care Reason For Visit: SOB,HYPOXIA Discharge Diagnosis: Anemia/ GI bleed Activity: Resume your previous activity Non-emergency contact: Primary Care Provider Call non-emergency contact if: you have any medication questions Follow-up/Referrals: Diaz Thomas MD [Primary Care Provider] - Diet: Carb Consistent or DM2 Addtl Attending Provider Instructions: Will recommend checking hemoglobin and hematocrit in 1 week. Recommend followup with PCP in 1 week. New medication is an iron tablet. Monitor for constipation. Can take over the counter medication for constipation if this occurs, like miralax, or drink more water. Pending Studies at Discharge: No Stand-Alone Forms: [employer], Smoking Cessation Medications and DC Order Prescriptions: New ferrous sulfate 324 mg (65 mg iron) tablet,delayed release (DR/EC) 324 mg PO BID Qty: 60 RF: 0 Continued Spiriva Respimat 2.5 mcg/actuation mist 2 puff INHALATION DAILY Qty: 4 RF: 5 ipratropium-albuterol 0.5 mg-3 mg(2.5 mg base)/3 mL solution for nebulization 3 ml inhalation QID PRN (Reason: shortness of breath or wheezing) Qty: 1 RF: 0 (DME) Oxygen Home Liters Per Minute See Dose Instructions .ROUTE .MEDSUPPLY Qty: 1 RF: 0 magnesium oxide 500 mg capsule 500 mg PO BID RF: 0 candesartan 16 mg tablet 32 mg PO DAILY RF: 0 atorvastatin 20 mg tablet 20 mg PO HS RF: 0 diltiazem HCl 360 mg capsule,extended release 24 hr 360 mg PO DAILY RF: 0 metformin 1,000 mg tablet 1,000 mg PO BID RF: 0 nitroglycerin 0.4 mg tablet, sublingual 0.4 mg Sublingual DIRECTED PRN (Reason: Chest Pain) RF: 0 albuterol sulfate 90 mcg/actuation HFA aerosol inhaler 2 puff Inhalation Q4 PRN (Reason: Wheezing) RF: 0 fluticasone propion-salmeterol 230-21 mcg/actuation HFA aerosol inhaler 2 puff Inhalation Q12 RF: 0 aspirin 81 mg tablet,delayed release (DR/EC) 81 mg PO Q2D RF: 0 dapagliflozin 5 mg Tablet 5 mg PO DAILY RF: 0 Discharge Orders: Discharge Order (Routine); Ordered 04/05/19 Ordered By: Eitan Pulido Admission Data Admit Date/Time: 04/02/19 15:45 Attending Provider: Eitan Pulido Admit Provider: Katlyn Jean Primary Care Provider: Diaz Thomas Other Providers: Katlyn Jean ; Dashawn Boyle ; Brady Correa Other Interventions: Discharge Summary Assessment (RN) Last Done: 04/05/19 17:18 DC Date/Time DO NOT enter until pt leaves facility: 04/05/19 17:49
== END 2019-04-05 17:49 | disposition home or self-care (01) | DRG 378 ==
LOC: ED 11:32 → SUATTDRO 15:45 → 4W 15:45

== ENCOUNTER 2021-12-20 11:34 | Inpatient (IN) ==
[2021-12-20] MEDS ORDERED: dexAMETHasone**PF** 10 MG/ML VIAL IV ONE (12:57)
[2021-12-20] MEDS ORDERED: ALBUT/IPRATROP 3MG/0.5MG NEB 3 ML VIAL NEB ONE (12:57)
--- NOTE | 2021-12-20 13:00 | Emergency Department Note ---
Impression & Plan Acute exacerbation of chronic obstructive pulmonary disease, Hypoxia ED Provider Note Name: JENNYFER CHAVIS Age: 76 Sex: M Arrives Via: Walk-In Informant: Patient and ED Provider: Tyshawn Oden MD Chief Complaint: Shortness of breath Impression: As per impressions above Medical Decision Makin-year-old gentleman with a long history of COPD issues as well as CAD, hyperlipidemia, hypertension, type 2 diabetes arrives for evaluation of worsening breathing difficulty. It is associated with some productive sputum. Chest x-ray is not overly impressive however his lung exam is quite concerning. Severely tight lung sounds with some wheezing. Given an hour neb and did improve somewhat but is still quite short of breath. Given some IV Decadron as well. Discussed that this will likely affect his blood sugars but as he is coming in this will be monitored inpatient. Also given some doxycycline though at this time he is not septic. I do not feel this is consistent with PE and I feel a CT of the chest is not indicated at this time. Patient is comfortable plan for hospitalization given the need for further oxygen than his typical requirements as well as the severity of his COPD exacerbation. Prior Medical Record and Triage/Nursing Notes reviewed by Me Additional history obtained from Differentials:Reactive airway disease, pneumonia, pneumothorax, COPD, CHF, infections, cardiac ischemia, pulmonary embolism, musculoskeletal, gastrointestinal, as well as other pathologies. Vital Signs: reviewed and remarkable for htn Interventions: Duoneb Hour-long, Decadron 10 mg IV, doxycycline 100 mg IV Labs:Reviewed and remarkable for no significant abnormalities Imaging:X ray results are stated below per my interpretation: Chest: 1 view: No infiltrate, no effusion, normal cardiac border. EKG:Per My Interpretation: Indication SHOB: NSR 85 bpm, qtc 464. No Ectopy. No Ischemia. Compared to EKG 04/02/19, no significant changes. Plan: Disposition: Hospitalization Condition: Good History of Present Illness:76-year-old gentleman arrives for evaluation of shortness of breath. Patient with a long history of lung issues and breathing difficulty using 3 L at baseline nasal cannula. He states the last several weeks worsening shortness of breath over the last few days significantly worsened. He states he can even walk down the [place] without severe shortness of breath and his oxygen dropping into the 70s. Symptoms get better if he stays still. He does not note any shortness of breath worsening with laying flat. He has had some mild swelling of his lower legs beyond his baseline. He denies any chest pain, syncope, fevers, chills, abdominal pain, back pain, urinary/bowel symptoms, calf pain or other concerning signs or symptoms. He did note that he was coughing up some mild yellow productive sputum. No new medication prior to arrival. He saw his PCP/mask inspector about a month ago without any clear issues at that time. He did have previous episodes of pneumonia requiring hospitalization a few years ago. He does have a history of diabetes notes his blood sugars been running in the 190s. ROS: See above HPI for pertinent positives & negatives. A total of 10 systems reviewed and were otherwise negative. Past Medical History:See Below Past Surgical History:See Below Family History:See Below Social History:See Below Home Medications:See Below Allergies:See Below Vitals:Blood Pressure: 174/78, Pulse 82, RR 20, T 37.4C, O2 75% on 3L NC Physical Exam: GENERAL: Patient is unwell/uncomfortable appearing and in moderate distress. EYES: No scleral icterus, unremarkable pupils. ENT: Mucous membranes moist, no nasal congestion. NECK: No masses appreciated, nomeningismus, trachea is midline. RESPIRATORY: Tight lung sounds with expiratory wheezing. Patient is moderately tachypneic/dyspneic CARDIOVASCULAR: Regular rate and rhythm.No murmurs, rubs, gallops appreciated. GASTROINTESTINAL: Abdomen soft, non-tender, no peritonitis.Bowel sounds positive.No masses appreciated. BACK: No midline tenderness, no CVA tenderness EXTREMITIES: Normal motion all extremities, no cyanosis, 2+ edema bilaterally NEUROLOGIC: Alert and oriented, no acute motor or sensory deficits, no focal weakness, cranial nerves grossly intact. SKIN: No rash, no jaundice, no diaphoresis. PSYCH: Appropriate GCS: 15 ED Course: Times/Reassessments: He does have improvement in air movement through his lungs but his wheezing is much flatter now. He is breathing more comfortably. Tyshawn Oden MD Past Med/Surg History Medical History (Updated 12/20/21 @ 14:54 by Tyshawn Oden MD) BPH with obstruction/lower urinary tract symptoms CAD (coronary artery disease) COPD (chronic obstructive pulmonary disease) not well controlled per pt > worse this time of year with humidity DM type 2 (diabetes mellitus, type 2) NIDDM H/O pulmonary emphysema History of arthritis History of cardioversion 2009> SVT History of heart attack pt unaware of this History of nicotine dependence Hyperlipidemia Hypertension Hypomagnesemia Iron deficiency anemia due to chronic blood loss Multiple pulmonary nodules determined by computed tomography of lung On home oxygen therapy 3 LPM continuous WENDY (obstructive sleep apnea) no cpap > O2 continuous Peripheral neuropathy Pneumonia Apr 2019 Pulmonary air trapping Pulmonary air trapping Renal cyst just monitoring Renal cyst SVT (supraventricular tachycardia) dx 2009> diltiazem for this > controlled Surgical History History of bone marrow biopsy July 2019 > checking due to anemia History of cardiac cath 2009 > no stents History of colonoscopy History of esophagogastroduodenoscopy (EGD) History of nasal surgery Status post cataract extraction of both eyes with insertion of intraocular lens [place] teeth extracted Family History Father Diabetes Mother Diabetes Hypertension Other Brain tumor Depression Stroke Social History (Updated 10/30/21 @ 08:47 by DEE Nieto) Smoking Status: Former smoker Tobacco Type: Cigarettes Age Started Using Tobacco: 20; packs per day: 1.0; Years Smoked: 50; Second Hand Exposure: No; Hx Alcohol Use: No Hx Substance Use: No Preferred Language: Mohawk Communication Ability: Effective 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 Beliefs That Will Affect Care: None Current Living Situation: Alone Feels Safe at Home: Yes Assistive Devices: Oxygen - Continuous Allergies Allergies Allergy/AdvReac Type Severity Reaction Status Date / Time ALYSSA Inhibitors Allergy Severe ANAPHYLAXIS Verified 10/30/21 08:44 Home Meds Home Medications Medication Instructions Recorded Confirmed albuterol sulfate 90 mcg/actuation 2 puff inhalation Q4 PRN Wheezing 12/14/17 10/30/21 aerosol inhaler atorvastatin 20 mg tablet 20 mg PO HS 12/14/17 10/30/21 metformin 1,000 mg tablet 1,000 mg PO BID 12/14/17 10/30/21 nitroglycerin 0.4 mg sublingual 0.4 mg sublingual DIRECTED PRN 12/14/17 10/30/21 tablet Chest Pain dapagliflozin 5 mg tablet 5 mg PO QAM 06/13/18 10/30/21 Oxygen Home #1 ea 11/13/18 10/30/21 aspirin 81 mg tablet,delayed 81 mg PO Q OTHER DAY 11/27/18 10/30/21 release magnesium oxide 500 mg capsule 500 mg PO BID 11/27/18 10/30/21 ascorbic acid (vitamin C) 1,000 mg 1 gm PO QAM 06/05/19 10/30/21 tablet guaifenesin 600 mg tablet, 600 mg PO BID 11/12/19 10/30/21 extended release 12 hr (Mucinex) diltiazem HCl 360 mg capsule,24 360 mg PO BID 06/17/20 10/30/21 hr,extended release tiotropium bromide 2.5 2 puff inhalation QAM 10/16/20 10/30/21 mcg/actuation mist for inhalation (Spiriva Respimat) hydrochlorothiazide 25 mg tablet 25 mg PO BID 07/07/21 10/30/21 pantoprazole 20 mg tablet,delayed 10 mg PO DAILY 07/07/21 10/30/21 release ferrous sulfate 325 mg (65 mg 325 mg PO Q OTHER DAY 08/11/21 10/30/21 iron) tablet (Feosol) mecobalamin (vitamin B12) 1,000 1,000 mcg PO DAILY 10/30/21 10/30/21 mcg chewable tablet Previous Rx's Medication Instructions Recorded ipratropium 0.5 mg-albuterol 3 mg 3 ml inhalation QID PRN shortness 01/06/20 (2.5 mg base)/3 mL nebulization of breath or wheezing #540 mL soln furosemide 20 mg tablet 20 mg PO .COMPLEX #270 tabs 07/08/21 sodium zirconium cyclosilicate 5 5 g PO Q OTHER DAY #30 ea 11/02/21 gram oral powder packet (Lokelma) arformoterol 15 mcg/2 mL solution 2 ml inhalation BID #120 mL 11/05/21 for nebulization (Brovana) budesonide 0.5 mg/2 mL suspension 0.5 mg (2 mL) inhalation BID #60 mL 11/05/21 for nebulization Results & Data (ED) Vital Signs Vital Signs - 24 hr 12/20/21 12:13 12/20/21 12:33 12/20/21 12:41 Temperature 37.4 C Temperature Source Temporal Artery Scan Pulse Rate 90 Pulse Rate [Left Apical] 82 Pulse Rhythm [Left Apical] Regular Pulse Strength [Left Apical] Normal Respiratory Rate 24 20 Respiratory Effort / Characteristics Spontaneous Labored Non-Labored Spontaneous Respiratory Depth Normal Normal Respiratory Pattern Regular Blood Pressure 151/62 H Blood Pressure [Left Arm] 174/78 H Blood Pressure Mean 91 Blood Pressure Mean [Left Arm] 110 Pulse Oximetry 79 L 100 100 Oxygen Delivery Method Nasal Cannula Nasal Cannula Room Air Oxygen Flow Rate 4 5 Sepsis Recent Fever Within 48 Hours No Sepsis New/Unexplained Change in Mental Status No Sepsis Action Taken by Nursing No Action Required 12/20/21 12:42 12/20/21 13:12 Temperature Temperature Source Pulse Rate Pulse Rate [Left Apical] 90 Pulse Rhythm [Left Apical] Pulse Strength [Left Apical] Respiratory Rate 18 Respiratory Effort / Characteristics Non-Labored Spontaneous Respiratory Depth Respiratory Pattern Blood Pressure Blood Pressure [Left Arm] Blood Pressure Mean Blood Pressure Mean [Left Arm] Pulse Oximetry 100 90 Oxygen Delivery Method Nasal Cannula Nasal Cannula Oxygen Flow Rate 3 5 Sepsis Recent Fever Within 48 Hours Sepsis New/Unexplained Change in Mental Status Sepsis Action Taken by Nursing Laboratory Data Result diagrams: 12/20/21 12:58 12/20/21 12:45 Lab Results 12/20/21 12/20/21 12/20/21 Range/Units 12:45 12:58 12:58 WBC 11.01 H (4.8-10.8) K/ul RBC 3.81 L (4.63-6.08) M/uL Hgb 10.5 L (14.0-18.0) g/dl Hct 34.4 L (40.1-51.0) % MCV 90.3 (80.0-100.0) fL MCH 27.6 (25.0-34.0) pg MCHC 30.5 L (32.0-36.0) g/dL RDW Std Deviation 54.8 H (36.4-46.3) fL RDW Coeff of Arnoldo 16.5 H (11.5-14.5) % Plt Count 280 (130-400) K/uL MPV 9.6 (9.4-12.4) fL Immature Gran % (Auto) 0.6 % Neut % (Auto) 79.1 % Lymph % (Auto) 8.0 % [place] % (Auto) 4.7 % Eos % (Auto) 6.9 % Baso % (Auto) 0.7 % Neut # (Auto) 8.70 H (1.4-6.5) K/uL Lymph # (Auto) 0.88 L (1.2-3.4) K/uL [place] # (Auto) 0.52 (0.24-0.82) K/uL Eos # (Auto) 0.76 H (0-0.50) K/uL Baso # (Auto) 0.08 (0-0.2) K/uL Immature Gran # (Auto) 0.07 H (0.00-0.02) K/uL PT 10.9 (9.0-12.0) Seconds INR 1.0 (0.9-1.1) APTT 25.9 (21.0-31.0) Seconds PTT Ratio 0.9 Sodium 138 (136-145) mmol/L Potassium 5.1 (3.5-5.1) mmol/L Chloride 98 (98-107) mmol/L Carbon Dioxide 33 H (21-32) mmol/L Anion Gap 7 (3-11) BUN 28 H (6-23) mg/dl Creatinine 1.35 (0.6-1.4) mg/dl Est Cr Clr Drug Dosing 54.8 ml/min Est GFR ( Amer) 59.5 ml/min Est GFR (Non-Af Amer) 51.4 ml/min BUN/Creatinine Ratio 20.7 H (10-20) Glucose 187 H (70-99(Fasting)) mg/dl Calcium 8.8 (8.5-10.1) mg/dl Magnesium 3.1 H (1.7-2.4) mg/dl Total Bilirubin 0.4 (0.2-1.0) mg/dl AST 23 (13-39) U/L ALT 26 (7-52) U/L Alkaline Phosphatase 72 (34-104) U/L Troponin I High Sens 14.4 (0-20) pg/ml Total Protein 7.5 (6.0-8.3) gm/dl Albumin 4.2 (3.4-5.0) gm/dl Globulin 3.3 (2.5-4.0) gm/dl Albumin/Globulin Ratio 1.3 (0.9-2) SARS-CoV-2, RNA, NAAT (NEGATIVE) 09/19/22 Range/Units 13:10 WBC (4.8-10.8) K/ul RBC (4.63-6.08) M/uL Hgb (14.0-18.0) g/dl Hct (40.1-51.0) % MCV (80.0-100.0) fL MCH (25.0-34.0) pg MCHC (32.0-36.0) g/dL RDW Std Deviation (36.4-46.3) fL RDW Coeff of Arnoldo (11.5-14.5) % Plt Count (130-400) K/uL MPV (9.4-12.4) fL Immature Gran % (Auto) % Neut % (Auto) % Lymph % (Auto) % [place] % (Auto) % Eos % (Auto) % Baso % (Auto) % Neut # (Auto) (1.4-6.5) K/uL Lymph # (Auto) (1.2-3.4) K/uL [place] # (Auto) (0.24-0.82) K/uL Eos # (Auto) (0-0.50) K/uL Baso # (Auto) (0-0.2) K/uL Immature Gran # (Auto) (0.00-0.02) K/uL PT (9.0-12.0) Seconds INR (0.9-1.1) APTT (21.0-31.0) Seconds PTT Ratio Sodium (136-145) mmol/L Potassium (3.5-5.1) mmol/L Chloride (98-107) mmol/L Carbon Dioxide (21-32) mmol/L Anion Gap (3-11) BUN (6-23) mg/dl Creatinine (0.6-1.4) mg/dl Est Cr Clr Drug Dosing ml/min Est GFR ( Amer) ml/min Est GFR (Non-Af Amer) ml/min BUN/Creatinine Ratio (10-20) Glucose (70-99(Fasting)) mg/dl Calcium (8.5-10.1) mg/dl Magnesium (1.7-2.4) mg/dl Total Bilirubin (0.2-1.0) mg/dl AST (13-39) U/L ALT (7-52) U/L Alkaline Phosphatase (34-104) U/L Troponin I High Sens (0-20) pg/ml Total Protein (6.0-8.3) gm/dl Albumin (3.4-5.0) gm/dl Globulin (2.5-4.0) gm/dl Albumin/Globulin Ratio (0.9-2) SARS-CoV-2, RNA, NAAT NEGATIVE (NEGATIVE) Administered Medications Doxycycline Hyclate 100 mg/ (Dextrose) 110 mls @ 50 mls/hr IV NOW STA Stop: 12/20/21 16:06 Last Admin: 12/20/21 14:40 Dose: 50 mls/hr Documented By: KV Discontinued Medications Albuterol (Albut/Ipratrop 3mg/0.5mg Neb 3 Ml Vial) 12 ml NEB ONE ONE; Protocol Stop: 12/20/21 12:58 Last Admin: 12/20/21 13:12 Dose: 12 ml Documented By: STS Dexamethasone Sodium Phosphate (DexamethasonePf 10 Mg/Ml Vial) 10 mg IV NOW ONE Stop: 12/20/21 12:58 Last Admin: 12/20/21 13:09 Dose: 10 mg Documented By: KV Imaging Data Radiologist's Impression: Chest X-Ray 12/20/21 12:40 XR chest 1V portable HISTORY: Shortness of breath. COMPARISON: Chest 04/02/2019. FINDINGS: No pneumothorax. No pleural effusions. Emphysema is again noted. Interstitial thickening within the mid to lower lung zones has slightly progre ssed. This may be due to vascular crowding from the emphysema. Otherwise, no new focal lung consolidations. No evidence for pulmonary edema. The cardiac silhouette remains mildly enlarged. IMPRESSION: 1. Emphysema. 2. Slight progression of the interstitial thickening within the mid to lower lung zones. This could be due to vascular crowding from the emphysema, chronic interstitial change, or a developing interstitial pneumonitis ACT 112: Negative or not required by law. Electronically signed by: Rocco Logan M.D. 12/20/2021 1:36 PM Discharge Plan Visit Data Chief Complaint: Shortness of Breath/Dyspnea Stated Complaint: REF BY JIGAR CORONADO ED Provider: Tyshawn Oden Discharge Problem: Acute exacerbation of chronic obstructive pulmonary disease, Hypoxia Forms Stand Alone Forms: [facility] Prescriptions Prescriptions: No Action ipratropium-albuterol 0.5 mg-3 mg(2.5 mg base)/3 mL solution for nebulization 3 ml inhalation QID PRN (Reason: shortness of breath or wheezing) Qty: 540 5RF furosemide 20 mg tablet 20 mg PO .COMPLEX Qty: 270 3RF Rx Instructions: 20 mg PO Take 2 tablets in the am and 1 tablet in afternoon; Lokelma 5 gram powder in packet 5 g PO Q OTHER DAY Qty: 30 2RF arformoterol [Brovana] 15 mcg/2 mL solution for nebulization 2 ml inhalation BID Qty: 120 3RF (DME) Oxygen Home Liters Per Minute See Dose Instructions .ROUTE .MEDSUPPLY Qty: 1 Rx Instructions: As directed magnesium oxide 500 mg capsule 500 mg PO BID guaifenesin [Mucinex] 600 mg tablet extended release 12hr 600 mg PO BID hydrochlorothiazide 25 mg tablet 25 mg PO BID pantoprazole 20 mg tablet,delayed release (DR/EC) 10 mg PO DAILY ferrous sulfate [Feosol] 325 mg (65 mg iron) tablet 325 mg PO Q OTHER DAY ascorbic acid (vitamin C) 1,000 mg tablet 1 gm PO QAM mecobalamin (vitamin B12) 1,000 mcg tablet,chewable 1,000 mcg PO DAILY budesonide 0.5 mg/2 mL suspension for nebulization 0.5 mg inhalation BID Qty: 60 2RF atorvastatin 20 mg tablet 20 mg PO HS metformin 1,000 mg tablet 1,000 mg PO BID nitroglycerin 0.4 mg tablet, sublingual 0.4 mg Sublingual DIRECTED PRN (Reason: Chest Pain) Rx Instructions: 1 tab sublingual every 5 minutes as needed for chest pain albuterol sulfate 90 mcg/actuation HFA aerosol inhaler 2 puff Inhalation Q4 PRN (Reason: Wheezing) aspirin 81 mg tablet,delayed release (DR/EC) 81 mg PO Q OTHER DAY Label Comments: 81 mg PO EVERY OTHER DAY; diltiazem HCl 360 mg capsule,extended release 24 hr 360 mg PO BID Rx Instructions: 2 tab once daily dapagliflozin 5 mg Tablet 5 mg PO QAM Spiriva Respimat 2.5 mcg/actuation mist 2 puff INHALATION QAM Referrals Referrals: Diaz Thomas MD [Primary Care Provider] -
[2021-12-20 13:17] LABS: Basophils # (auto) 0.08 K/uL (0-0.2); Basophils % (auto) 0.7 %; Eosinophils # (auto) 0.76 K/uL (0-0.50); Eosinophils % (auto) 6.9 %; Hematocrit (blood only) 34.4 % (40.1-51.0); Hemoglobin 10.5 g/dl (14.0-18.0); Immature Granulocytes # (auto) 0.07 K/uL (0.00-0.02); Immature Granulocytes % (auto) 0.6 %; Lymphocytes # (auto) 0.88 K/uL (1.2-3.4); Mean Corpuscular Hemoglobin 27.6 pg (25.0-34.0); Mean Corpuscular Hgb Conc 30.5 g/dL (32.0-36.0); Mean Corpuscular Volume 90.3 fL (80.0-100.0); Mean Platelet Volume 9.6 fL (9.4-12.4); Monocytes # (auto) 0.52 K/uL (0.24-0.82); Monocytes % (auto) 4.7 %; Neutrophils % (auto) 79.1 %; Platelet Count 280 K/uL (130-400); RDW Coefficient of Variation 16.5 % (11.5-14.5); RDW Standard Deviation 54.8 fL (36.4-46.3); Red Blood Count 3.81 M/uL (4.63-6.08); White Blood Count 11.01 K/ul (4.8-10.8)
[2021-12-20 13:33] LABS: Partial Thromboplastin Ratio 0.9; Partial Thromboplastin Time 25.9 Seconds (21.0-31.0); Prothrombin Time 10.9 Seconds (9.0-12.0)
--- NOTE | 2021-12-20 13:38 | XRay Report ---
XR chest 1V portable HISTORY: Shortness of breath. COMPARISON: Chest 04/02/2019. FINDINGS: No pneumothorax. No pleural effusions. Emphysema is again noted. Interstitial thickening wi thin the mid to lower lung zones has slightly progressed. This may be due to vascular crowding from t he emphysema. Otherwise, no new focal lung consolidations. No evidence for pulmonary edema. The cardi ac silhouette remains mildly enlarged. IMPRESSION: 1. Emphysema. 2. Slight progression of the interstitial thickening within the mid to lower lung zones. This could b e due to vascular crowding from the emphysema, chronic interstitial change, or a developing interstit ial pneumonitis ACT 112: Negative or not required by law. Electronically signed by: Rocco Logan M.D. 12/20/2021 1:36 PM
[2021-12-20 13:53] LABS: Troponin I High Sensitivity 14.4 pg/ml (0-20)
[2021-12-20] MEDS ORDERED: DOXYCYCLINE HYCLATE 100 MG in DEXTROSE 5% 100 ML IV STA (13:55)
--- NOTE | 2021-12-20 13:56 | Electrocardiogram Report ---
Test Reason : Blood Pressure : / mmHG Vent. Rate : 085 BPM Atrial Rate : 085 BPM P-R Int : 174 ms QRS Dur : 104 ms QT Int : 390 ms P-R-T Axes : 041 078 060 degrees QTc Int : 464 ms Poor data quality, interpretation may be adversely affected Normal sinus rhythm with sinus arrhythmia Normal ECG When compared with ECG of 02-APR-2019 11:57, QT has lengthened Confirmed by Venkatesh Bowles ([id number]) on 12/20/2021 1:56:10 PM Referred By: Confirmed By:Venkatesh Bowles
--- NOTE | 2021-12-20 14:07 | History & Physical Report ---
Date of Service December 20, 2021 Assessment & Plan (1) Acute exacerbation of chronic obstructive pulmonary disease: Plan: -Admit to PCU/tele -Patient currently afebrile, hemodynamically stable, and stable on 5L NC -At this time the patient's acute on chronic hypoxemic respiratory failure is most likely associated with acute COPD exacerbation but cannot currently rule out pneumonia, heart failure, -Patient has not been taking new breathing treatments as prescribed as he went back to using BID advair or convenience, brown sputum production is concerning for pneumonia as he does not have a baseline cough or sputum production, patient is edematous on exam and is followed by cardiology for edema but they have had a difficulty time finding the proper dose of diuretics with his recurrent RICHIE's from dehydration -Was given doxy, duonebs, and 10 mg IV dexamethasone in the ED -Continue all previous CQ DEVELOPER breathing treatments including recently prescribed Brovana and Fluticasone-Salmeterol BID, hold Advair for now -Continue with aggressive pulm hygiene including prn duonebs -Will start 40 mg PO prednisone BID tonight -Titrate O2 for an SpO2 between 89-92%, goal to get back to his CQ DEVELOPER 3L NC continuous -Will hold off on CTA of the chest to rule out PE as patient has CKD and other causes of hypoxia, will obtain non-contrast CT of the chest now for further evaluation of lung disease, if patient would develop sustained tachycardia, hypotension, or worsening hypoxia despite current treatment would recommend continued evaluation as he is not on anticoagulation -Adding on Procal and BNP for completion of workup, will continue with Doxycycline for now but can DC if his procal is negative -AM CBC, BMP, and mag (2) Hypoxia: Plan: -See Acute exacerbation of COPD (3) Severe chronic obstructive pulmonary disease: Plan: -See severe exacerbation of COPD (4) WENDY (obstructive sleep apnea): Plan: -Does not wear CPAP due to claustrophobia, continue with HS O2 (5) Hypermagnesemia: Plan: -Likely from his PO magnesium and liekly dehydration -Hold CQ DEVELOPER mag for now and re-evaluate with AM Mag tomorrow, ordered (6) Chronic diastolic CHF (congestive heart failure): Plan: -Continue with CQ DEVELOPER lasix and hydrochlorothiazide as he appears edematous on exam and kidney function is currently stable (7) Coronary artery disease: Plan: -Continue CQ DEVELOPER aspirin (8) Anemia, iron deficiency: Plan: -CQ DEVELOPER ferrous sulfate (9) Hypertension: Plan: -CQ DEVELOPER diltiazem (10) Hyperlipidemia: Plan: -CQ DEVELOPER pantoprazole (11) SVT (supraventricular tachycardia): Plan: -See HTN (12) DM type 2 (diabetes mellitus, type 2): Plan: -Hold oral antihyperglycemics -Will start with glargine 16 units BID, correction factor of 25 and carb ration of 8 -Patient may need increased regimen with PO Prednisone Plan The patient was discussed with Dr. Alejandra at the time of admission History of Present Illness Chief Complaint: SOB Primary Care Provider: Diaz Thomas MD Kristopher is a 76 year old male with a PMH significant for Severe COPD, Pulmonary nodules, pulmonary HTN, chronic respiratory failure with hypoxia on 3L NC, WENDY, HFpEF, anemia, DM II, SVT, who presented to the [facility] ED on 12/20/21 with a chief complaint of SOB. In the ED the patient was noted to be afebrile, hemodynamically stable, and stable on his baseline 3l NC. Labs were remarkable for leukocytosis of 11.01 with absolute neutrophils of 8.70, magnesium of 3.1, and normal troponin. CXR showed "Emphysema and Slight progression of the interstitial thickening within the mid to lower lung zones. This could be due to vascular crowding from the emphysema, chronic interstitial change, or a developing interstitial pneumonitis". The patient was given 100 mg IV doxycycline, duonebs, and 10 mg IV dexamethasone in the ED prior to admission. Of note, the patient was recently seen in the Pulmonology clinic on 11/05/21 for follow-up. They switched him from advair to Brovana and Budesonide BID due to his poor inspiratory capacity. Per pulmonology's request, the patient underwent right hearth cath with Dr. Seay on 09/14/21 which showed 70% distal apical LAD lesion which was diffusely diseased, non-occlusive disease in the diagnosis, large circumflex with non-occlusive disease with a 60% lesion in the terminal portion of a marginal branch, and 80% ling lesion in the proximal right coronary artery and mild pulmonary hypertension with stable cardiac output. The cardiology note mentioned they are not exactly sure why he continues to have worsening lower extremity edema despite heavy diuretic use and recommended adding DEUCE stocking to help, they did not recommend treating the pulmonary HTN at this time. At the time of the exam the patient was sitting in bed in no acute distress, currently receiving a nebulizer treatment with his significant other sitting bedside. He states that he has been experiencing progressive SOB and hypoxia with exertion of the past week. The patient lives at home alone and normally completes his ADLs himself without issue. He is normally on 3L baseline continuously. He states that over the past week he has noted a productive cough with brown sputum, he denies having a chronic productive cough. He denies recent fevers, chills, sick contacts, and chest pain since his symptoms started. He has noticed that when he is exerting himself he is desaturating into the 70's on his 3L NC and he has been more SOB. He notes he had similar symptoms last time he was treated for pneumonia in 2019. When asked about his current breathing treatment regimen, he notes that he stopped using the Brovana and fluticasone- salmeterol recently prescribed by pulmonology and went back to use advair as it was easier for him to take daily, he has not updated his Breast Surgeon regarding the change. At the current time his breathing feels slightly improved compared to when he first arrived to the ED. Allergies Allergy/AdvReac Type Severity Reaction Status Date / Time FLORENCIO Inhibitors Allergy Severe ANAPHYLAXIS Verified 10/30/21 08:44 Home Medications Medication Instructions Recorded Confirmed Type albuterol sulfate 90 mcg/actuation 2 puff inhalation Q4 PRN Wheezing 12/14/17 12/20/21 History aerosol inhaler atorvastatin 20 mg tablet 20 mg PO HS 12/14/17 12/20/21 History metformin 1,000 mg tablet 1,000 mg PO BID 12/14/17 12/20/21 History nitroglycerin 0.4 mg sublingual 0.4 mg sublingual DIRECTED PRN 12/14/17 12/20/21 History tablet Chest Pain dapagliflozin 5 mg tablet 5 mg PO QAM 06/13/18 12/20/21 History Oxygen Home #1 ea 11/13/18 10/30/21 History aspirin 81 mg tablet,delayed 81 mg PO Q OTHER DAY 11/27/18 12/20/21 History release magnesium oxide 500 mg capsule 500 mg PO BID 11/27/18 12/20/21 History ascorbic acid (vitamin C) 1,000 mg 1 gm PO QAM 06/05/19 12/20/21 History tablet guaifenesin 600 mg tablet, 600 mg PO BID 11/12/19 12/20/21 History extended release 12 hr (Mucinex) tiotropium bromide 2.5 2 puff inhalation QAM 10/16/20 12/20/21 History mcg/actuation mist for inhalation (Spiriva Respimat) hydrochlorothiazide 25 mg tablet 25 mg PO BID 07/07/21 12/20/21 History pantoprazole 20 mg tablet,delayed 10 mg PO DAILY 07/07/21 12/20/21 History release furosemide 20 mg tablet 20 mg PO .COMPLEX #270 tabs 07/08/21 12/20/21 Rx ferrous sulfate 325 mg (65 mg 325 mg PO Q OTHER DAY 08/11/21 12/20/21 History iron) tablet (Feosol) mecobalamin (vitamin B12) 1,000 1,000 mcg PO DAILY 10/30/21 12/20/21 History mcg chewable tablet sodium zirconium cyclosilicate 5 5 g PO Q OTHER DAY #30 ea 11/02/21 12/20/21 Rx gram oral powder packet (Lokelma) diltiazem HCl 240 mg 240 mg PO BID 12/20/21 12/20/21 History capsule,extended release 24 hr fluticasone propionate 230 2 puff inhalation BID 12/20/21 12/20/21 History mcg-salmeterol 21 mcg/actuation HFA inhaler (Advair HFA) Past Med/Surg History Medical History (Updated 12/20/21 @ 16:21 by Erwin Wise PA-C) BPH with obstruction/lower urinary tract symptoms CAD (coronary artery disease) COPD (chronic obstructive pulmonary disease) not well controlled per pt > worse this time of year with humidity DM type 2 (diabetes mellitus, type 2) NIDDM H/O pulmonary emphysema History of arthritis History of cardioversion 2009> SVT History of heart attack pt unaware of this History of nicotine dependence Hyperlipidemia Hypertension Hypomagnesemia Iron deficiency anemia due to chronic blood loss Multiple pulmonary nodules determined by computed tomography of lung On home oxygen therapy 3 LPM continuous WENDY (obstructive sleep apnea) no cpap > O2 continuous Peripheral neuropathy Pneumonia Apr 2019 Pulmonary air trapping Pulmonary air trapping Renal cyst just monitoring Renal cyst SVT (supraventricular tachycardia) dx 2009> diltiazem for this > controlled Surgical History History of bone marrow biopsy July 2019 > checking due to anemia History of cardiac cath 2009 > no stents History of colonoscopy History of esophagogastroduodenoscopy (EGD) History of nasal surgery Status post cataract extraction of both eyes with insertion of intraocular lens [place] teeth extracted Family History Father Diabetes Mother Diabetes Hypertension Other Brain tumor Depression Stroke Social History (Updated 10/30/21 @ 08:47 by DEE Nieto) Smoking Status: Former smoker Tobacco Type: Cigarettes Age Started Using Tobacco: 20; packs per day: 1.0; Years Smoked: 50; Second Hand Exposure: No; Do You Dip or Chew Tobacco: No; Hx Alcohol Use: No Hx Substance Use: No Preferred Language: Latvian Communication Ability: Effective Cooling Pan Tender Required: No Beliefs That Will Affect Care: None Current Living Situation: Alone Other Information That Helps Us Care for You: No Feels Safe at Home: Yes Safety Concerns: Feels Safe At This Time Assistive Devices: Glasses and Oxygen - Continuous Review of Systems Review of Systems: Denies current fever, chills, headache, changes in vision, hearing, taste, and smell, chest pain, abdominal pain, nausea, vomiting, diarrhea, hematemesis, melena, dysuria, hematuria, and recent falls. All systems have been reviewed and are otherwise negative. Physical Exam Physical Exam: Physical Exam: General: In no acute distress, stated age, chronically ill-appearing, non- toxic appearing HEENT: Patient currently with non-rebreather in place receivng nebulizer treatment,Normocephalic, atraumatic, no scleral icterus, pupils around round, symmetrical, and reactive to light, moist mucus membranes, trachea midline, no thyromegaly Chest/Pulm: No respiratory distress, symmetrical chest expansion, expiratory wheezing noted in the BL upper and middle lung lozoya with rhonchi noted in the BL lower lung lozoya Cardiac: RRR, murmurs noted Abdomen: Negative for ascites and bruising, normoactive bowel sounds, soft, non-tender to palpation throughout Musculoskeletal: Symmetrical and without signs of acute trauma, upper and lower extremities with full ROM, no atrophy, spasticity, or flaccidity Extremities: Radial, dorsalis pedis, and posterior tibial pulses are intact and symmetrical, no edema noted in the BL LE's Skin: Warm, dry, no rashes , lesions, or scars noted Neuro: Alert and oriented to person, place, month, year, and president, no focal defects, CN II-XII tested and intact, finger to nose test negative, no tremors noted Psych: No acute distress, calm and cooperative during the exam Results & Data Results & Data ([facility]) Vital Signs (Past 12 Hours) Vital Signs Temp Pulse Pulse Resp BP BP Pulse Ox 12/20/21 12:42 100 12/20/21 12:41 82 20 174/78 H 100 12/20/21 12:33 100 12/20/21 12:13 37.4 C 90 24 151/62 H 79 L O2 Del Method O2 Flow Rate 12/20/21 12:42 Nasal Cannula 3 12/20/21 12:41 Room Air 12/20/21 12:33 Nasal Cannula 5 12/20/21 12:13 Nasal Cannula 4 Laboratory Results Abnormal lab results 12/20/21 12/20/21 Range/Units 12:45 12:58 WBC 11.01 H (4.8-10.8) K/ul RBC 3.81 L (4.63-6.08) M/uL Hgb 10.5 L (14.0-18.0) g/dl Hct 34.4 L (40.1-51.0) % MCHC 30.5 L (32.0-36.0) g/dL RDW Std Deviation 54.8 H (36.4-46.3) fL RDW Coeff of Arnoldo 16.5 H (11.5-14.5) % Neut # (Auto) 8.70 H (1.4-6.5) K/uL Lymph # (Auto) 0.88 L (1.2-3.4) K/uL Eos # (Auto) 0.76 H (0-0.50) K/uL Immature Gran # (Auto) 0.07 H (0.00-0.02) K/uL Carbon Dioxide 33 H (21-32) mmol/L BUN 28 H (6-23) mg/dl BUN/Creatinine Ratio 20.7 H (10-20) Glucose 187 H (70-99(Fasting)) mg/dl Magnesium 3.1 H (1.7-2.4) mg/dl Diagnostic Findings Chest X-Ray 12/20/21 12:40 XR chest 1V portable HISTORY: Shortness of breath. COMPARISON: Chest 04/02/2019. FINDINGS: No pneumothorax. No pleural effusions. Emphysema is again noted. Interstitial thickening within the mid to lower lung zones has slightly progressed. This may be due to vascular crowding from the emphysema. Otherwise, no new focal lung consolidations. No evidence for pulmonary edema. The cardiac silhouette remains mildly enlarged. IMPRESSION: 1. Emphysema. 2. Slight progression of the interstitial thickening within the mid to lower lung zones. This could be due to vascular crowding from the emphysema, chronic interstitial change, or a developing interstitial pneumonitis ACT 112: Negative or not required by law. Electronically signed by: Rocco Logan M.D. 12/20/2021 1:36 PM ECG Additional Comments: Poor data quality, interpretation may be adversely affected Normal sinus rhythm with sinus arrhythmia Normal ECG When compared with ECG of 02-APR-2019 11:57, QT has lengthened Confirmed by Venkatesh Bowles ([id number]) on 12/20/2021 1:56:10 PM Code Status & VTE Plan Code Status Full Code VTE Prophylaxis Plan VTE Prophylaxis will be ordered: Yes Supervising Physician Co-Signing Physician Notes Patient seen and examined, chart reviewed, case discussed with Erwin Wise PA-C and I agree with the assessment and plan as above except as otherwise noted Labs and images reviewed Kristopher is a 76-year-old male with a past medical history of chronic respiratory failure with hypoxia due to severe COPD, WENDY, pulmonary hypertension, CHF, HLD, HTN, SVT, type II DM, nicotine dependence, and GI bleed presents to the hospital with increased shortness of breath. Has had progressive shortness of breath for few weeks which acutely worsened in the last 3 to 4 days. Is desaturating to the 70s with exertion on his home oxygen requirement of 3 L. Symptoms do improve with rest. Endorses new leg swelling, endorses change in sputum production to mild yellow, and endorses recent high blood sugars. Trope is normal. At time of bedside patient receiving nebs, no wheezing, mild tachycardia. No acute distress Chest x-ray: Emphysema, progression of interstitial thickening in mid to lower lung zones? Vascular crowding, chronic interstitial change, or developing pneumonitis EKG: Normal sinus rhythm without territorial ST segment changes, QTC 464. Last pulmonary visit 11/05/2021: COPD, group D. Transitioned from Advair to Brovana twice daily, budesonide twice daily, Spiriva, and duo nebs as needed. WHO 2/3 pulmonary hypertension, no significant hypertension on right heart cath being monitored as outpatient. CHFpEF -Echo 07/2021 with normal EF, moderate LVH, mild to moderate P HTN CAD with history of catheterization 2014 with 70% distal LAD lesion, 60% marginal lesion, 80% RCA lesion. Extremity muscles been multifactorial with pulmonary hypertension,dCHF, stasis, and hypoalbuminemia. Was recommended to continue Florencio wraps and lymphedema standpoint, did not tolerate increased diuretic doses and noted that likely type II/III pulmonary hypertension without good therapy options. Agree with management as above PG Care Time/CCT Total # of Minutes Spent Total Time Spent with Patient: Total time spent is greater than 50% in coordination of care (as documented) at patient's floor/unit and/or counseling patient: C[place] [address] Initial Inpt Care Lvl 3 Patient Type Established Medical Decision Making High Complexity Diagnoses Acute exacerbation of chronic obstructive pulmonary disease J44.1 Hypoxia R09.02 Severe chronic obstructive pulmonary disease J44.9 WENDY (obstructive sleep apnea) G47.33 Hypermagnesemia E83.41 Chronic diastolic CHF (congestive heart failure) I50.32 Coronary artery disease I25.10 Associated angina: without angina Coronary Disease-Associated Artery/Lesion type: [place] artery [place] vs. transplanted heart: [place] heart Anemia, iron deficiency D50.9 Hypertension I10 Hypertension type: essential hypertension Hyperlipidemia E78.5 Hyperlipidemia type: unspecified SVT (supraventricular tachycardia) I47.1 DM type 2 (diabetes mellitus, type 2) E11.9 Diabetes mellitus complication status: without complication Diabetes mellitus intermediate accountant insulin use: without long-term use (1) DM type 2 (diabetes mellitus, type 2) Diabetes mellitus complication status: without complication Diabetes mellitus intermediate accountant insulin use: without intermediate accountant use Qualified Code(s): E11.9 - Type 2 diabetes mellitus without complications (2) Coronary artery disease Associated angina: without angina Coronary Disease-Associated Artery/Lesion type: [place] artery [place] vs. transplanted heart: [place] heart Qualified Code(s): I25.10 - Atherosclerotic heart disease of [place] coronary artery without angina pectoris (3) Hyperlipidemia Hyperlipidemia type: unspecified Qualified Code(s): E78.5 - Hyperlipidemia, unspecified (4) Hypertension Hypertension type: essential hypertension Qualified Code(s): I10 - Essential (primary) hypertension
[2021-12-20 14:12] LABS: Albumin Globulin Ratio 1.3 (0.9-2); Albumin Level 4.2 gm/dl (3.4-5.0); BUN Creatinine Ratio 20.7 (10-20); Bilirubin,Total 0.4 mg/dl (0.2-1.0); Calcium 8.8 mg/dl (8.5-10.1); Creatinine Clr Calc Pharmacy 54.8 ml/min; Est GFR (African American) 59.5 ml/min; Est GFR (Non-African American) 51.4 ml/min; Globulin 3.3 gm/dl (2.5-4.0); Magnesium 3.1 mg/dl (1.7-2.4); Potassium 5.1 mmol/L (3.5-5.1); Total Protein 7.5 gm/dl (6.0-8.3)
[2021-12-20] MEDS ORDERED: FUROSEMIDE 20 MG TAB PO SCH (17:00)
[2021-12-20] MEDS ORDERED: GLUCOSE 40% GEL 15 GM TUBE PO PRN (17:01)
[2021-12-20] MEDS ORDERED: GLUCAGON FOR INJ 1 MG VIAL SQ PRN (17:01)
[2021-12-20] MEDS ORDERED: CARBOHYDRATES FOR HYPOGLYCEMIA PO PRN (17:01)
[2021-12-20] MEDS ORDERED: ACETAMINOPHEN 325 MG TAB PO PRN (17:01)
[2021-12-20] MEDS ORDERED: GLUCOSE 10 TAB/TUBE PO PRN (17:01)
[2021-12-20] MEDS ORDERED: DEXTROSE 50% 50 ML SYRINGE IV PRN (17:01)
[2021-12-20] MEDS: ASPIRIN 81 MG ECTAB PO SCH (18:15)
[2021-12-20] MEDS: FERROUS SULFATE 325 MG TAB PO SCH (18:16)
[2021-12-20] MEDS: UMECLIDINIUM BROMIDE 62.5MCG/BLISTER 7 PUFFS/INHALER INH SCH (18:17)
[2021-12-20] MEDS: INSULIN ASPART PER UNIT SC SCH ×2 (18:22→20:35)
[2021-12-20] MEDS ORDERED: ARFORMOTEROL TART 15MCG/2ML VIAL INH SCH (19:00)
[2021-12-20] MEDS: BUDESONIDE 0.5 MG/2 ML VIAL (PULMICORT) INH SCH (20:01)
[2021-12-20] MEDS: ALBUT/IPRATROP 3MG/0.5MG NEB 3 ML VIAL INH SCH (20:01)
--- NOTE | 2021-12-20 20:22 | CT Scan Report ---
CT SCAN OF THE CHEST WITHOUT IV CONTRAST CLINICAL HISTORY: Acute on chronic hypoxia. COMPARISON STUDY: Chest CT scans dated 01/08/2021 and 12/05/2018. TECHNIQUE: CT scan of the thorax was performed from the thoracic inlet to the upper abdomen. Images are reviewed in the axial, sagittal, and coronal planes. IV contrast was not administered for this ex amination as per the referring clinician. A dose lowering technique was utilized adhering to the stephanie Kelin. CT DOSE: 467.81 mGy.cm FINDINGS: Thyroid: Imaged portions of the thyroid gland are normal in size and attenuation. Thoracic aorta: There is atherosclerotic calcification of the thoracic aorta, which is normal in brianna smiley and demonstrates standard 3-vessel arch anatomy. Heart: The heart is enlarged noting a small pericardial effusion. The coronary arteries are densely c alcified. The main pulmonary arteries appear dilated suggesting pulmonary artery hypertension. Lungs and pleural spaces: Advanced emphysematous change is again noted. Mild patchy airspace consolid ation is seen in the left upper lobe and lingula. There are also minimal patchy airspace opacities in the right upper and middle lobes. There are small pleural effusions. Foci of scarring/atelectasis ar e noted throughout both lungs. There are scattered calcified granulomas. A 4 mm right upper lobe pulm onary nodule on image #109 is unchanged. Secretions are noted in the right mainstem bronchus. Mediastinum: There is no mediastinal lymphadenopathy. Guerline: Not well assessed without IV contrast. Axillae: There is no axillary lymphadenopathy. Upper abdomen: There is a small hiatal hernia. Right-sided hydronephrosis is partially visualized. An 11 mm complex/hyperdense cyst is again seen in the upper pole of the partially imaged left kidney. A 10 mm cyst is noted in the left lobe. Skeletal structures: The skeletal structures are osteopenic. There is a mild chronic superior endplat e compression deformity of L1. Degenerative changes noted in the shoulders and thoracic spine. There are healed bilateral rib fractures. No lytic or blastic bony lesions are seen. Soft tissues: Gynecomastia is noted. There is a large lipoma in the right anterior chest wall soft ti ssues which measures up to 7 cm. IMPRESSION: 1. Cardiomegaly and advanced emphysema. 2. There scattered foci of patchy consolidation seen throughout both lungs as above, greatest in the left upper lobe. This likely represents an infectious/inflammatory pneumonitis and clinical correlati on will be required. A 3-4 month follow-up chest CT is recommended to document resolution. 3. Small pleural effusions. 4. Right-sided hydronephrosis is partially visualized and unchanged. 5. Additional findings as above. ACT 112: Negative or not required by law. Electronically signed by: Devan Irene M.D. 12/20/2021 8:20 PM
[2021-12-20] MEDS: LANTUS PER UNIT CHARGE SQ SCH (20:35)
[2021-12-20] MEDS: ATORVASTATIN 20 MG TAB PO SCH (20:43)
[2021-12-20] MEDS: DOXYCYCLINE HYCLATE 100 MG CAP PO SCH (20:43)
[2021-12-20] MEDS: HEPARIN SOD 5,000 UNIT/0.5 ML VIAL SQ SCH (20:43)
[2021-12-20] MEDS: dilTIAZem HCL 240 MG CAPCR PO SCH (20:43)
[2021-12-20] MEDS: guaiFENesin 600 MG TABCR PO SCH (20:43)
[2021-12-20] MEDS: hydroCHLOROthiazide 25 MG TAB PO SCH (20:43)
[2021-12-20] MEDS: predniSONE 20 MG TAB PO SCH (20:43)
[2021-12-21] MEDS: ALBUT/IPRATROP 3MG/0.5MG NEB 3 ML VIAL INH SCH ×4 (07:15→20:06)
[2021-12-21] MEDS: BUDESONIDE 0.5 MG/2 ML VIAL (PULMICORT) INH SCH ×2 (07:15→20:06)
[2021-12-21] MEDS: FORMOTEROL 20 MCG/2 ML VIAL INH SCH ×2 (07:15→20:06)
[2021-12-21 07:16] LABS: Hematocrit (blood only) 34.6 % (40.1-51.0); Hemoglobin 10.4 g/dl (14.0-18.0); Mean Corpuscular Hemoglobin 27.3 pg (25.0-34.0); Mean Corpuscular Hgb Conc 30.1 g/dL (32.0-36.0); Mean Corpuscular Volume 90.8 fL (80.0-100.0); Mean Platelet Volume 9.8 fL (9.4-12.4); Platelet Count 252 K/uL (130-400); RDW Coefficient of Variation 16.6 % (11.5-14.5); RDW Standard Deviation 54.6 fL (36.4-46.3); Red Blood Count 3.81 M/uL (4.63-6.08); White Blood Count 6.94 K/ul (4.8-10.8)
[2021-12-21 07:51] LABS: BUN Creatinine Ratio 27.4 (10-20); Calcium 8.5 mg/dl (8.5-10.1); Creatinine Clr Calc Pharmacy 54.3 ml/min; Est GFR (African American) 59.5 ml/min; Est GFR (Non-African American) 51.4 ml/min; Magnesium 2.8 mg/dl (1.7-2.4); Potassium 5.3 mmol/L (3.5-5.1)
[2021-12-21] MEDS: PANTOprazole 40 MG TAB PO SCH (07:57)
[2021-12-21] MEDS: ASCORBIC ACID 500 MG TAB PO SCH (07:57)
[2021-12-21] MEDS: hydroCHLOROthiazide 25 MG TAB PO SCH ×2 (07:57→20:25)
[2021-12-21] MEDS: DOXYCYCLINE HYCLATE 100 MG CAP PO SCH ×2 (07:57→20:28)
[2021-12-21] MEDS: CYANOCOBALAMIN (B-12) 500 MCG TABLET PO SCH (07:58)
[2021-12-21] MEDS: dilTIAZem HCL 240 MG CAPCR PO SCH ×2 (07:58→20:27)
[2021-12-21] MEDS: guaiFENesin 600 MG TABCR PO SCH ×2 (07:58→20:26)
[2021-12-21] MEDS: predniSONE 20 MG TAB PO SCH (07:58)
[2021-12-21] MEDS: UMECLIDINIUM BROMIDE 62.5MCG/BLISTER 7 PUFFS/INHALER INH SCH (07:59)
[2021-12-21] MEDS: HEPARIN SOD 5,000 UNIT/0.5 ML VIAL SQ SCH ×2 (07:59→20:26)
[2021-12-21] MEDS: INSULIN ASPART PER UNIT SC SCH ×4 (08:05→21:23)
[2021-12-21] MEDS: LANTUS PER UNIT CHARGE SQ SCH (08:06)
[2021-12-21] MEDS: FUROSEMIDE 20 MG TAB PO SCH ×2 (09:31→16:47)
[2021-12-21] MEDS ORDERED: PHARMACY GLYCEMIC MGMT CONSULT PRN (13:21)
--- NOTE | 2021-12-21 13:47 | Hospitalist Progress Note ---
Date of Service December 21, 2021 Assessment & Plan (1) Acute exacerbation of chronic obstructive pulmonary disease: Plan: Unclear cause of exacerbation but not taking newly prescribed nebulizers -> using Advair instead No large consolidation on CT and procalcitonin negative therefore will just continue doxycycline for COPD exacerbation alone. -Ella non formulary and switched for Perforomist, will continue budesonide nebs BID -Duonebs QID -Will switch his steroids back to IV solu-medrol during his inpatient stay -Titrate O2 for an SpO2 between 89-92% -2 step in AM, PT/OT for possible discharge (2) Hypoxia: Plan: -See Acute exacerbation of COPD - 2 step in AM (3) Severe chronic obstructive pulmonary disease: Plan: -See exacerbation of COPD (4) WENDY (obstructive sleep apnea): Plan: -Does not wear CPAP due to claustrophobia, continue with HS O2 (5) Hypermagnesemia: Plan: -Likely from his PO magnesium and liekly dehydration -Hold MESSENGER OFFICE mag for now and re-evaluate with AM Mag tomorrow, ordered (6) Chronic diastolic CHF (congestive heart failure): Plan: -Continue with MESSENGER OFFICE lasix and hydrochlorothiazide as he appears edematous on exam and kidney function is currently stable (7) Coronary artery disease: Plan: -Continue MESSENGER OFFICE aspirin (8) Anemia, iron deficiency: Plan: -MESSENGER OFFICE ferrous sulfate (9) Hypertension: Plan: -MESSENGER OFFICE diltiazem (10) Hyperlipidemia: Plan: -MESSENGER OFFICE pantoprazole (11) SVT (supraventricular tachycardia): Plan: -See HTN (12) DM type 2 (diabetes mellitus, type 2): Plan: -Hold oral antihyperglycemics -Will start with glargine 16 units BID, correction factor of 25 and carb ration of 8 -HbA1C with AM labs -Will consult pharmacy for glycemic control in setting of steroid induced hyper glycemia Plan VTE Prophylaxis - Diet - heart healthy, T2DM Disposition - stable for transfer to med/surg Admission and Anticipated Discharge Date Admission Date: December 20, 2021 Subjective Patient reports significant improvement since admission. Still more short of breath than baseline especially on any light exertion. His problem was more desaturating on exertion than at rest. He is usually on 3LPM O2 at baseline. Notes utilizing albuterol nebulizer regularly at home - 50% because he is used to doing it and 50% because he feels he needs it. Since switching to Brovana and Budesonide nebulizers he has found it a hassle to do this therefore he has mostly gone back to his Advair. Review of Systems Review of Systems: All systems reviewed & are unremarkable except as noted in Subjective Physical Exam Constitutional: WD/WN, vitals as above + obese Eyes: + anicteric sclerae; normal pupil size ENMT: external ear and nose normal, oropharynx normal Neck: trachea midline, no thyromegaly Respiratory: normal respiratory effort; no respiratory distress Auscultation: + wheezes (expiratory throughout); breath sounds present, no diminished lung sounds, no crackles and no rhonchi Cardiovascular: RRR, no murmur, no edema Gastrointestinal (Abdomen): normal bowel sounds, soft, nontender, no hepatosplenomegaly Musculoskeletal: no cyanosis or clubbing, extremities motor strength 5/5 Skin: no rashes, warm and dry Neurologic: moves all extremities and awake; no focal motor deficits and not confused Psychiatric: A+Ox3, euthymic affect Results & Data Results & Data ([facility]) Vital Signs (Past 12 Hours) Vital Signs Temp Pulse Pulse Resp BP BP Pulse Ox 12/21/21 11:12 36.6 C 77 18 154/70 H 96 12/21/21 10:38 75 18 94 12/21/21 09:06 12/21/21 07:48 69 12/21/21 07:27 36.4 C 70 19 166/74 H 98 12/21/21 07:16 70 18 98 12/21/21 03:58 36.4 C L 71 20 151/66 H 95 O2 Del Method O2 Flow Rate 12/21/21 11:12 Nasal Cannula 4.5 12/21/21 10:38 Nasal Cannula 3 12/21/21 09:06 Nasal Cannula 5 12/21/21 07:48 12/21/21 07:27 Nasal Cannula 5 12/21/21 07:16 Nasal Cannula 4 12/21/21 03:58 Nasal Cannula 1 PG Care Time/CCT Total # of Minutes Spent Total Time Spent: 80 Total Time Spent with Patient: Total time spent is greater than 50% in coordination of care (as documented) at patient's floor/unit and/or counseling patient: Coding Level of Care Code 53152 Subseq Hosp Care Lvl 3 Diagnoses Acute exacerbation of chronic obstructive pulmonary disease J44.1 Hypoxia R09.02 Severe chronic obstructive pulmonary disease J44.9 WENDY (obstructive sleep apnea) G47.33 Hypermagnesemia E83.41 Chronic diastolic CHF (congestive heart failure) I50.32 Coronary artery disease I25.10 Associated angina: without angina Coronary Disease-Associated Artery/Lesion type: [place] artery [place] vs. transplanted heart: [place] heart Anemia, iron deficiency D50.9 Hypertension I10 Hypertension type: essential hypertension Hyperlipidemia E78.5 Hyperlipidemia type: unspecified SVT (supraventricular tachycardia) I47.1 DM type 2 (diabetes mellitus, type 2) E11.9 Diabetes mellitus complication status: without complication Diabetes mellitus intermediate card tender insulin use: without intermediate card tender use (1) DM type 2 (diabetes mellitus, type 2) Diabetes mellitus complication status: without complication Diabetes mellitus [facility] insulin use: without [facility] use Qualified Code(s): E11.9 - Type 2 diabetes mellitus without complications (2) Coronary artery disease Associated angina: without angina Coronary Disease-Associated Artery/Lesion type: [place] artery [place] vs. transplanted heart: [place] heart Qualified Code(s): I25.10 - Atherosclerotic heart disease of [place] coronary artery without angina pectoris (3) Hyperlipidemia Hyperlipidemia type: unspecified Qualified Code(s): E78.5 - Hyperlipidemia, unspecified (4) Hypertension Hypertension type: essential hypertension Qualified Code(s): I10 - Essential (primary) hypertension
--- NOTE | 2021-12-21 14:17 | Pharmacy Report ---
Pharmacy Glycemic Short Note 2 - Date of Service December 21, 2021 - Glycemic Short BSG Results (Last 24 hours): 12/20/21 12/20/21 12/20/21 12:45 17:11 17:12 Glucose 187 H POC Glucose 418 H* 379 H* 12/20/21 12/21/21 12/21/21 20:28 06:17 07:19 Glucose 270 H POC Glucose 268 H 270 H 12/21/21 11:29 Glucose POC Glucose 299 H OUTPATIENT ANTIDIABETIC REGIMEN: * Metformin 1 g PO BIDM * Dapagliflozin 5 mg PO daily HbA1c ordered for 12/22/21 ASSESSMENT: * TS is a 76 year old male admitted for inpatient treatment of acute exacerbation of COPD * Originally started on prednisone 40 mg PO BID -> now changed to methylprednisolone 40 mg IV BID * BSGs elevated since time of admission, ranging 268-418 mg/dL * Pharmacy consulted for glycemic management this afternoon in light of this persistent hyperglycemia * Will tighten Novolog and allow for increased Lantus dose today (weight-based stress of 3 dosing) PLAN FOR INPATIENT GLYCEMIC CONTROL: * Hold outpatient oral diabetes medications * Basal insulin * Lantus 16 units SC x 1 this morning * Lantus 16-30 units SC HS (see EHR for details) * Bolus insulin * NovoLog per scale ACHS or Q6hrs while NPO * Goal Range: Low 110 mg/dL - High 140 mg/dL * Correction Factor: 15 mg/dL/unit * Nutritional / Prandial insulin per carb ratio of 1 unit per 6 grams CHO consumed
[2021-12-21] MEDS: methylPREDNISolone 40 MG in SYRINGE 0 ML IV SCH (20:24)
[2021-12-21] MEDS: ATORVASTATIN 20 MG TAB PO SCH (20:24)
[2021-12-21] MEDS ORDERED: LANTUS PER UNIT CHARGE SQ SCH (21:00)
[2021-12-22] MEDS ORDERED: INSULIN ASPART PER UNIT SC SCH
[2021-12-22 06:41] LABS: Hematocrit (blood only) 32.9 % (40.1-51.0); Hemoglobin 10.2 g/dl (14.0-18.0); Mean Corpuscular Hemoglobin 27.5 pg (25.0-34.0); Mean Corpuscular Volume 88.7 fL (80.0-100.0); Mean Platelet Volume 9.7 fL (9.4-12.4); Platelet Count 277 K/uL (130-400); RDW Coefficient of Variation 16.2 % (11.5-14.5); RDW Standard Deviation 52.1 fL (36.4-46.3); Red Blood Count 3.71 M/uL (4.63-6.08); White Blood Count 10.06 K/ul (4.8-10.8)
[2021-12-22 07:00] LABS: Calcium 8.7 mg/dl (8.5-10.1); Creatinine Clr Calc Pharmacy 47.4 ml/min; Est GFR (Non-African American) 43.1 ml/min; Magnesium 2.6 mg/dl (1.7-2.4); Potassium 4.5 mmol/L (3.5-5.1)
[2021-12-22] MEDS: ALBUT/IPRATROP 3MG/0.5MG NEB 3 ML VIAL INH SCH ×4 (07:01→20:25)
[2021-12-22] MEDS: BUDESONIDE 0.5 MG/2 ML VIAL (PULMICORT) INH SCH ×2 (07:01→20:26)
[2021-12-22] MEDS: FORMOTEROL 20 MCG/2 ML VIAL INH SCH ×2 (07:01→20:25)
[2021-12-22 07:58] LABS: Estimated Average Glucose 217 mg/dl; Hemoglobin A1C 9.2 % (4.5-5.6)
[2021-12-22] MEDS: INSULIN ASPART PER UNIT SC SCH ×4 (08:34→20:51)
[2021-12-22] MEDS: ASCORBIC ACID 500 MG TAB PO SCH (08:37)
[2021-12-22] MEDS: CYANOCOBALAMIN (B-12) 500 MCG TABLET PO SCH (08:38)
[2021-12-22] MEDS: dilTIAZem HCL 240 MG CAPCR PO SCH ×2 (08:38→20:50)
[2021-12-22] MEDS: DOXYCYCLINE HYCLATE 100 MG CAP PO SCH ×2 (08:39→20:50)
[2021-12-22] MEDS: FUROSEMIDE 20 MG TAB PO SCH ×2 (08:40→16:59)
[2021-12-22] MEDS: HEPARIN SOD 5,000 UNIT/0.5 ML VIAL SQ SCH ×2 (08:40→20:50)
[2021-12-22] MEDS: hydroCHLOROthiazide 25 MG TAB PO SCH ×2 (08:43→20:50)
[2021-12-22] MEDS: methylPREDNISolone 40 MG in SYRINGE 0 ML IV SCH ×2 (08:44→20:50)
[2021-12-22] MEDS: PANTOprazole 40 MG TAB PO SCH (08:44)
[2021-12-22] MEDS: guaiFENesin 600 MG TABCR PO SCH ×2 (08:45→20:50)
[2021-12-22] MEDS: UMECLIDINIUM BROMIDE 62.5MCG/BLISTER 7 PUFFS/INHALER INH SCH (08:45)
[2021-12-22] MEDS ORDERED: LANTUS PER UNIT CHARGE SQ SCH (09:00)
--- NOTE | 2021-12-22 12:07 | Pharmacy Report ---
Pharmacy Glycemic Short Note 2 - Date of Service December 22, 2021 - Glycemic Short BSG Results (Last 24 hours): 12/21/21 12/21/21 12/21/21 15:56 20:53 23:55 Glucose POC Glucose 230 H 195 H 223 H 12/22/21 12/22/21 12/22/21 06:16 07:14 11:14 Glucose 205 H POC Glucose 215 H 256 H OUTPATIENT ANTIDIABETIC REGIMEN: * Metformin 1 g PO BIDM * Dapagliflozin 5 mg PO daily HbA1c 9.2% (12/22/21) ASSESSMENT: 12/22/21 * BSGs remained elevated yesterday, ranging 195-299 mg/dL * Fasting BSG of 215 mg/dL this morning * Continues on Solu-medrol 40 mg IV BID * Will increase basal insulin and tighten carb coverage further today 12/21/21 * TS is a 76 year old male admitted for inpatient treatment of acute exacerbation of COPD * Originally started on prednisone 40 mg PO BID -> now changed to methylp rednisolone 40 mg IV BID * BSGs elevated since time of admission, ranging 268-418 mg/dL * Pharmacy consulted for glycemic management this afternoon in light of this persistent hyperglycemia * Will tighten Novolog and allow for increased Lantus dose today (weight-based stress of 3 dosing) PLAN FOR INPATIENT GLYCEMIC CONTROL: * Hold outpatient oral diabetes medications * Basal insulin * Lantus 23 units SC x 1 this morning * Lantus 23-30 units SC BID starting this evening * Bolus insulin * NovoLog per scale ACHS or Q6hrs while NPO * Goal Range: Low 110 mg/dL - High 140 mg/dL * Correction Factor: 15 mg/dL/unit * Nutritional / Prandial insulin per carb ratio of 1 unit per 4 grams CHO consumed
[2021-12-22] MEDS ORDERED: hydrALAZINE HCL 20 MG/ML VIAL IV PRN (12:16)
--- NOTE | 2021-12-22 13:36 | Hospitalist Progress Note ---
Date of Service December 22, 2021 Assessment & Plan (1) Acute exacerbation of chronic obstructive pulmonary disease: Plan: Unclear cause of exacerbation but not taking newly prescribed nebulizers -> using Advair instead No large consolidation on CT and procalcitonin negative therefore will just continue doxycycline for COPD exacerbation alone. SLowly improving but still needing 6LNC with any exertion. baseline 3LNC O2 -Brovana non formulary and switched for Perforomist, will continue budesonide nebs BID -Duonebs QID -continue IV solu-medrol during his inpatient stay and then convert to prednisone -Titrate O2 for an SpO2 between 89-92% -2 step prior to dc, PT/OT recommends home (2) Hypoxia: Plan: acute on chronic respiratory failure with hypoxia -See Acute exacerbation of COPD (3) Severe chronic obstructive pulmonary disease: Plan: -See exacerbation of COPD (4) CKD (chronic kidney disease) stage 3, GFR 30-59 ml/min: Plan: laboratory inspector up to 1.5 from baseline 1.3 follow ok to continue home diuretics (5) WENDY (obstructive sleep apnea): Plan: -Does not wear CPAP due to claustrophobia, continue with HS O2 (6) Chronic diastolic CHF (congestive heart failure): Plan: -Continue with CANAL STRUCTURE OPERATOR lasix and hydrochlorothiazide (7) Coronary artery disease: Plan: cardiac cath 2014 with 70% distal apical LAD lesion, nonocclusive dz in diagnonals, large Cx 60% stenosis in terminal portion marginal branch, 80% long lesion in prox RCA -Continue CANAL STRUCTURE OPERATOR aspirin not on beta blockers, continue statin (8) Anemia, iron deficiency: Plan: -CANAL STRUCTURE OPERATOR ferrous sulfate will give Retacrit 50511 units he gets every 2 weeks as he is overdue for it today and hgb < 11 (9) Hypertension: Plan: BPs quite elevated coulf be 2/2 steroids continue HCTZ, lasix, diltiazem add prn hydralazine (10) Hyperlipidemia: Plan: -continue pantoprazole (11) SVT (supraventricular tachycardia): Plan: -See HTN (12) DM type 2 (diabetes mellitus, type 2): Plan: -Hold oral antihyperglycemics -continue glargine and novolog, adjust as needed -HbA1C uncontrolled at 9.2% -Will consult pharmacy for glycemic control in setting of steroid induced hyperglycemia f/u with PCP (13) Hypermagnesemia: Plan: -Likely from his PO magnesium and liekly dehydration -Hold CANAL STRUCTURE OPERATOR mag for now and re-evaluate with AM Mag tomorrow, ordered Plan VTE Prophylaxis - Diet - heart healthy, T2DM Disposition - continued stay on med/surg, improving but not quite ready for discharge, would like to see O2 requirement improve Admission and Anticipated Discharge Date Admission Date: December 20, 2021 Subjective Pt still feeling SOB with exertion, needed 6L on ambualtion today. Some cough. No CP, abd pain, is eating. He is asking baout getting his epogen shot while here as he missed it as an outpt Not on tele Review of Systems Review of Systems: All systems reviewed & are unremarkable except as noted in HPI & below Physical Exam Constitutional: WD/WN, vitals as above Neck: trachea midline, no thyromegaly Respiratory: normal respiratory effort; no cough Auscultation: + diminished lung sounds (throughout) and + wheezes; no crackles Cardiovascular: RRR, no murmur, no edema Chest (Breasts): Chest: normal inspection of chest Gastrointestinal (Abdomen): normal bowel sounds, soft, nontender, no hepatosplenomegaly Musculoskeletal: Extremities: extremities normal to inspection; no cyanosis and no clubbing Skin: no rashes, warm and dry Neurologic: moves all extremities and awake; no focal motor deficits Psychiatric: A+Ox3, euthymic affect Lymphatic: no lymphedema Results & Data Results & Data ([facility]) Vital Signs (Past 12 Hours) Vital Signs Temp Pulse Pulse Pulse Pulse Pulse Pulse 12/22/21 11:18 36.4 C L 12/22/21 10:30 12/22/21 10:00 12/22/21 09:22 59 L 12/22/21 07:50 36.6 C 12/22/21 07:34 74 75 86 85 86 12/22/21 07:03 12/22/21 04:14 36.6 C Pulse Pulse Pulse Resp Resp Resp Resp 12/22/21 11:18 72 18 12/22/21 10:30 74 18 12/22/21 10:00 12/22/21 09:22 12/22/21 07:50 84 20 12/22/21 07:34 83 77 18 20 20 12/22/21 07:03 70 18 12/22/21 04:14 62 18 Resp Resp Resp BP BP Pulse Ox Pulse Ox 12/22/21 11:18 177/78 H 94 12/22/21 10:30 96 12/22/21 10:00 12/22/21 09:22 12/22/21 07:50 196/51 H 90 12/22/21 07:34 20 20 18 82 L 12/22/21 07:03 95 12/22/21 04:14 150/72 H 97 Pulse Ox Pulse Ox Pulse Ox Pulse Ox Pulse Ox Pulse Ox O2 Del Method 12/22/21 11:18 Nasal Cannula 12/22/21 10:30 Nasal Cannula 12/22/21 10:00 Nasal Cannula 12/22/21 09:22 12/22/21 07:50 Nasal Cannula 12/22/21 07:34 91 86 L 89 L 85 L 91 78 L 12/22/21 07:03 Nasal Cannula 12/22/21 04:14 Nasal Cannula O2 Flow Rate O2 Flow Rate O2 Flow Rate O2 Flow Rate O2 Flow Rate O2 Flow Rate O2 Flow Rate 12/22/21 11:18 4 12/22/21 10:30 3 12/22/21 10:00 4 12/22/21 09:22 12/22/21 07:50 4 12/22/21 07:34 2 3 4 6 3 3 12/22/21 07:03 4 12/22/21 04:14 4 PG Care Time/CCT Total # of Minutes Spent Total Time Spent with Patient: Total time spent is greater than 50% in coordination of care (as documented) at patient's floor/unit and/or counseling patient: Coding Level of Care Code 06605 Subseq Hosp Care Lvl 2 Diagnoses Acute exacerbation of chronic obstructive pulmonary disease J44.1 Hypoxia R09.02 Severe chronic obstructive pulmonary disease J44.9 CKD (chronic kidney disease) stage 3, GFR 30-59 ml/min N18.30 WENDY (obstructive sleep apnea) G47.33 Chronic diastolic CHF (congestive heart failure) I50.32 Coronary artery disease I25.10 Associated angina: without angina Coronary Disease-Associated Artery/Lesion type: [place] artery [place] vs. transplanted heart: [place] heart Anemia, iron deficiency D50.9 Hypertension I10 Hypertension type: essential hypertension Hyperlipidemia E78.5 Hyperlipidemia type: unspecified SVT (supraventricular tachycardia) I47.1 DM type 2 (diabetes mellitus, type 2) E11.9 Diabetes mellitus complication status: without complication Diabetes mellitus extermination supervisor insulin use: without extermination supervisor use Hypermagnesemia E83.41 (1) DM type 2 (diabetes mellitus, type 2) Diabetes mellitus complication status: without complication Diabetes mellitus senior living insulin use: without extermination supervisor use Qualified Code(s): E11.9 - Type 2 diabetes mellitus without complications (2) Coronary artery disease Associated angina: without angina Coronary Disease-Associated Artery/Lesion type: [place] artery [place] vs. transplanted heart: [place] heart Qualified Code(s): I25.10 - Atherosclerotic heart disease of [place] coronary artery without angina pectoris (3) Hyperlipidemia Hyperlipidemia type: unspecified Qualified Code(s): E78.5 - Hyperlipidemia, unspecified (4) Hypertension Hypertension type: essential hypertension Qualified Code(s): I10 - Essential (primary) hypertension
[2021-12-22] MEDS ORDERED: EPOETIN ALFA 20,000 UNITS/ML VIAL SQ ONE (16:00)
[2021-12-22] MEDS: ASPIRIN 81 MG ECTAB PO SCH (16:58)
[2021-12-22] MEDS: FERROUS SULFATE 325 MG TAB PO SCH (16:58)
[2021-12-22] MEDS: ATORVASTATIN 20 MG TAB PO SCH (20:50)
[2021-12-22] MEDS: LANTUS PER UNIT CHARGE SQ SCH (20:51)
[2021-12-23] MEDS: BUDESONIDE 0.5 MG/2 ML VIAL (PULMICORT) INH SCH (06:57)
[2021-12-23] MEDS: FORMOTEROL 20 MCG/2 ML VIAL INH SCH (06:57)
[2021-12-23] MEDS: ALBUT/IPRATROP 3MG/0.5MG NEB 3 ML VIAL INH SCH ×3 (06:58→14:22)
[2021-12-23 07:36] LABS: Hematocrit (blood only) 34.5 % (40.1-51.0); Hemoglobin 10.8 g/dl (14.0-18.0); Mean Corpuscular Hemoglobin 27.7 pg (25.0-34.0); Mean Corpuscular Hgb Conc 31.3 g/dL (32.0-36.0); Mean Corpuscular Volume 88.5 fL (80.0-100.0); Platelet Count 300 K/uL (130-400); RDW Coefficient of Variation 16.3 % (11.5-14.5); RDW Standard Deviation 52.6 fL (36.4-46.3); White Blood Count 9.21 K/ul (4.8-10.8)
[2021-12-23 07:59] LABS: BUN Creatinine Ratio 39.6 (10-20); Calcium 8.9 mg/dl (8.5-10.1); Creatinine Clr Calc Pharmacy 46.5 ml/min; Est GFR (African American) 48.8 ml/min; Est GFR (Non-African American) 42.1 ml/min; Magnesium 2.4 mg/dl (1.7-2.4)
[2021-12-23] MEDS: DOXYCYCLINE HYCLATE 100 MG CAP PO SCH (08:04)
[2021-12-23] MEDS: methylPREDNISolone 40 MG in SYRINGE 0 ML IV SCH (08:04)
[2021-12-23] MEDS: PANTOprazole 40 MG TAB PO SCH (08:04)
[2021-12-23] MEDS: dilTIAZem HCL 240 MG CAPCR PO SCH (08:04)
[2021-12-23] MEDS: CYANOCOBALAMIN (B-12) 500 MCG TABLET PO SCH (08:04)
[2021-12-23] MEDS: guaiFENesin 600 MG TABCR PO SCH (08:04)
[2021-12-23] MEDS: FUROSEMIDE 20 MG TAB PO SCH (08:04)
[2021-12-23] MEDS: hydroCHLOROthiazide 25 MG TAB PO SCH (08:04)
[2021-12-23] MEDS: HEPARIN SOD 5,000 UNIT/0.5 ML VIAL SQ SCH (08:05)
[2021-12-23] MEDS: UMECLIDINIUM BROMIDE 62.5MCG/BLISTER 7 PUFFS/INHALER INH SCH (08:05)
[2021-12-23] MEDS: LANTUS PER UNIT CHARGE SQ SCH (08:14)
[2021-12-23] MEDS: INSULIN ASPART PER UNIT SC SCH ×2 (08:14→12:25)
[2021-12-23] MEDS: ASCORBIC ACID 500 MG TAB PO SCH (08:15)
--- NOTE | 2021-12-23 15:42 | Discharge Summary ---
Date of Service December 23, 2021 Admission HPI Per Admitting Provider Kristopher is a 76 year old male with a PMH significant for Severe COPD, Pulmonary nodules, pulmonary HTN, chronic respiratory failure with hypoxia on 3L NC, WENDY, HFpEF, anemia, DM II, SVT, who presented to the [facility] ED on 12/20/21 with a chief complaint of SOB. In the ED the patient was noted to be afebrile, hemodynamically stable, and stable on his baseline 3l NC. Labs were remarkable for leukocytosis of 11.01 w ith absolute neutrophils of 8.70, magnesium of 3.1, and normal troponin. CXR showed "Emphysema and Slight progression of the interstitial thickening within the mid to lower lung zones. This could be due to vascular crowding from the emphysema, chronic interstitial change, or a developing interstitial pneumonitis". The patient was given 100 mg IV doxycycline, duonebs, and 10 mg IV dexamethasone in the ED prior to admission. Of note, the patient was recently seen in the Pulmonology clinic on 11/05/21 for follow-up. They switched him from advair to Brovana and Budesonide BID due to his poor inspiratory capacity. Per pulmonology's request, the patient underwent right hearth cath with Dr. Seay on 09/14/21 which showed 70% distal apical LAD lesion which was diffusely diseased, non-occlusive disease in the diagnosis, large circumflex with non-occlusive disease with a 60% lesion in the terminal portion of a marginal branch, and 80% ling lesion in the proximal right coronary artery and mild pulmonary hypertension with stable cardiac output. The cardiology note mentioned they are not exactly sure why he continues to have worsening lower extremity edema despite heavy diuretic use and recommended adding DEUCE stocking to help, they did not recommend treating the pulmonary HTN at this time. At the time of the exam the patient was sitting in bed in no acute distress, currently receiving a nebulizer treatment with his significant other sitting bedside. He states that he has been experiencing progressive SOB and hypoxia with exertion of the past week. The patient lives at home alone and normally completes his ADLs himself without issue. He is normally on 3L baseline continuously. He states that over the past week he has noted a productive cough with brown sputum, he denies having a chronic productive cough. He denies recent fevers, chills, sick contacts, and chest pain since his symptoms started. He has noticed that when he is exerting himself he is desaturating into the 70's on his 3L NC and he has been more SOB. He notes he had similar symptoms last time he was treated for pneumonia in 2019. When asked about his current breathing treatment regimen, he notes that he stopped using the Brovana and fluticasone- salmeterol recently prescribed by pulmonology and went back to use advair as it was easier for him to take daily, he has not updated his Body Team Member regarding the change. At the current time his breathing feels slightly improved compared to when he first arrived to the ED. Principal Diagnosis COPD exacerbation, acute on chronic respiratory failure with hypoxia Discharge Exam Constitutional WD/WN, vitals as above Eyes + anicteric sclerae Neck trachea midline, no thyromegaly Respiratory normal respiratory effort; no cough Auscultation: + diminished lung sounds (throughout, but improved from previous); no crackles, no rhonchi and no wheezes Cardiovascular RRR, no murmur, no edema Chest (Breasts) Chest: normal inspection of chest Gastrointestinal (Abdomen) normal bowel sounds, soft, nontender, no hepatosplenomegaly Musculoskeletal Extremities: extremities normal to inspection; no cyanosis and no clubbing Skin no rashes, warm and dry Neurologic moves all extremities and awake; no focal motor deficits Psychiatric A+Ox3, euthymic affect Lymphatic no lymphedema Discharge Data Allergies Allergy/AdvReac Type Severity Reaction Status Date / Time ALYSSA Inhibitors Allergy Severe ANAPHYLAXIS Verified 10/30/21 08:44 Consultations 12/20/21 14:49 ED Decision to Admit Stat Ordered Studies 12/20/21 15:08 CT chest diagnostic wo con Urgent Diabetes Follow up Diabetes Follow-up Needed for HgbA1c >9% Hospital Course (1) Acute exacerbation of chronic obstructive pulmonary disease: Unclear cause of exacerbation but not taking newly prescribed nebulizers -> using Advair instead No large consolidation on CT and procalcitonin negative therefore will just continue doxycycline for COPD exacerbation alone. Is now significantly improved, less dyspnea on exertion, sputum production is decreased At home and now requiring 2 L at rest and 4 L with exertion on a two-step walk test on the day of discharge baseline 3LNC O2 Was treated with budesonide nebs BID, DuoNebs 4 times daily, and Perforomist -Can revert back to home maintenance inhalers on discharge -Treated with IV solu-medrol during his inpatient stay and then convert to prednisone 40 mg daily x4 more days for total of 7 on discharge -Finish out 4 more days of doxycycline p.o. 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 1.3 Stable at 1.5 on the day of discharge ok to continue home diuretics with Lasix, HCTZ Follows with nephrology (5) WENDY (obstructive sleep apnea): -Does not wear CPAP due to claustrophobia, continue with HS O2 (6) Chronic diastolic CHF (congestive heart failure): -Continue with CATERERS HELPER lasix and hydrochlorothiazide (7) Coronary artery disease: cardiac cath 2014 with 70% distal apical LAD lesion, nonocclusive dz in diagnonals, large Cx 60% stenosis in terminal portion marginal branch, 80% long lesion in prox RCA -Continue CATERERS HELPER aspirin not on beta blockers, continue statin (8) Anemia, iron deficiency: -CATERERS HELPER ferrous sulfate Administered Retacrit 02197 units x1 while here-he gets every 2 weeks and was overdue for it while here, hgb < 11 (9) Hypertension: BPs elevated secondary to steroids-should improve after steroid burst is completed continue HCTZ, lasix, diltiazem (10) Hyperlipidemia: -continue pantoprazole (11) SVT (supraventricular tachycardia): None noted while here (12) DM type 2 (diabetes mellitus, type 2): Held from home-metformin and Farxiga oral antihyperglycemics -HbA1C uncontrolled at 9.2% here but recently was in the 7% range as per patient Advised dietary changes, initial hyperglycemia from steroids should improve after steroid burst is over He is not a candidate to increase his dose of Farxiga due to his GFR being less than 45, however he could potentially go on a GLP-1 or DPP-4 f/u with PCP for any changes in the future Seen by clinical informatics educator here (13) Hypermagnesemia: -Likely from his PO magnesium and liekly dehydration Discontinued home p.o. magnesium Plan DVT prophylaxis-Heparin SQ Diet - heart healthy, T2DM Disposition -stable for discharge to home Total Time Total Time Spent Total Time Spent (In Minutes): 40 minutes Discharge Plan Discharge Items Patient Disposition: Home - Self-Care Reason For Visit: SHORTNESS OF BREATH Discharge Diagnosis: COPD exacerbation, acute on chronic respiratory failure with hypoxia Activity: As commented below Bathing: No limitations Exercise/Sports: Gradually increase as tolerated Non-emergency contact: Primary Care Provider and Body Team Member Call non-emergency contact if: you have any medication questions and your symptoms worsen Follow-up/Referrals: Tato Bui MD [Physician] - (Follow up within 1 month) Diaz Thomas MD [Primary Care Provider] - (Follow up within 1-2 weeks) Diet: Carb Consistent or DM2, Heart Healthy and Low Sodium (2gm) Addtl Attending Provider Instructions: You were admitted for lower oxygen levels than usual and this was secondary to an exacerbation of COPD. You were treated with steroids and an antibiotic called doxycycline. Please finish out 4 more days of doxycycline as an outpatient along with 4 more days of prednisone. You will need to have a repeat CT scan of your chest in 4 months to ensure that the previous abnormalities are gone. 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 You will need to use 2 L of oxygen via nasal cannula at rest and 4 L nasal cannula when you get up and walk around. Please discuss your elevated blood sugars with your primary care physician. You will need to add on an additional medication to help control your blood sugars. Pending Studies at Discharge: No Stand-Alone Forms: My [facility] Your Tribute, Smoking Cessation Medications and DC Order Prescriptions: New doxycycline hyclate 100 mg Capsule 100 mg PO BID Qty: 8 0RF prednisone 20 mg tablet 40 mg PO DAILY 4 Days Qty: 8 0RF Continued furosemide 20 mg tablet 20 mg PO .COMPLEX Qty: 270 3RF Rx Instructions: 20 mg PO Take 2 tablets in the am and 1 tablet in afternoon; Lokelma 5 gram powder in packet 5 g PO Q OTHER DAY Qty: 30 2RF (DME) Oxygen Home Liters Per Minute See Dose Instructions .ROUTE .MEDSUPPLY Qty: 1 Rx Instructions: As directed magnesium oxide 500 mg capsule 500 mg PO BID guaifenesin [Mucinex] 600 mg tablet extended release 12hr 600 mg PO BID hydrochlorothiazide 25 mg tablet 25 mg PO BID pantoprazole 20 mg tablet,delayed release (DR/EC) 10 mg PO DAILY ferrous sulfate [Feosol] 325 mg (65 mg iron) tablet 325 mg PO Q OTHER DAY ascorbic acid (vitamin C) 1,000 mg tablet 1 gm PO QAM mecobalamin (vitamin B12) 1,000 mcg tablet,chewable 1,000 mcg PO DAILY atorvastatin 20 mg tablet 20 mg PO HS metformin 1,000 mg tablet 1,000 mg PO BID nitroglycerin 0.4 mg tablet, sublingual 0.4 mg Sublingual DIRECTED PRN (Reason: Chest Pain) Rx Instructions: 1 tab sublingual every 5 minutes as needed for chest pain albuterol sulfate 90 mcg/actuation HFA aerosol inhaler 2 puff Inhalation Q4 PRN (Reason: Wheezing) aspirin 81 mg tablet,delayed release (DR/EC) 81 mg PO Q OTHER DAY Label Comments: 81 mg PO EVERY OTHER DAY; dapagliflozin 5 mg Tablet 5 mg PO QAM Spiriva Respimat 2.5 mcg/actuation mist 2 puff INHALATION QAM diltiazem HCl 240 mg capsule,extended release 24hr 240 mg PO BID Advair HFA 230-21 mcg/actuation HFA aerosol inhaler 2 puff INHALATION BID Discharge Orders: Discharge Order (Routine); Ordered 12/23/21 Ordered By: Amber Hairston Admission Data Admit Date/Time: 12/20/21 14:41 Attending Provider: Amber Hairston Admit Provider: Ponce Alejandra Primary Care Provider: Diaz Thomas Other Providers: Ponce Alejandra Coding Level of Care Code D/C DAY MANAGEMENT >30 MINS Diagnoses Acute exacerbation of chronic obstructive pulmonary disease J44.1 Hypoxia R09.02 Severe chronic obstructive pulmonary disease J44.9 CKD (chronic kidney disease) stage 3, GFR 30-59 ml/min N18.30 WENDY (obstructive sleep apnea) G47.33 Chronic diastolic CHF (congestive heart failure) I50.32 Coronary artery disease I25.10 Coronary Disease-Associated Artery/Lesion type: [place] artery [place] vs. 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
== END 2021-12-23 17:20 | disposition home or self-care (01) | DRG 190 ==
LOC: ED 11:34 → 2S 14:41 → SUATTDRO 14:41 → 2S 15:55
DX: I50.32 Chronic diastolic (congestive) heart failure; E78.5 Hyperlipidemia, unspecified; D50.9 Iron deficiency anemia, unspecified; E11.9 Type 2 diabetes mellitus without complications; I25.10 Atherosclerotic heart disease of native coronary artery without angina pectoris; J44.1 Chronic obstructive pulmonary disease with (acute) exacerbation; I13.0 Hypertensive heart and chronic kidney disease with heart failure and stage 1 through stage 4 chronic kidney disease, or unspecified chronic kidney disease; J96.21 Acute and chronic respiratory failure with hypoxia; J18.9 Pneumonia, unspecified organism; I47.1 Supraventricular tachycardia; Z99.81 Dependence on supplemental oxygen; G47.33 Obstructive sleep apnea (adult) (pediatric); Z79.84 Long term (current) use of oral hypoglycemic drugs; E83.41 Hypermagnesemia; Z87.891 Personal history of nicotine dependence

== ENCOUNTER 2022-05-13 12:14 | Inpatient (IN) ==
[2022-05-13] MEDS ORDERED: SODIUM CHLORIDE 0.9% 1000ML 500 ML IV ONE (12:31)
[2022-05-13] MEDS ORDERED: ALBUT/IPRATROP 3MG/0.5MG NEB 3 ML VIAL NEB ONE (12:31)
--- NOTE | 2022-05-13 12:35 | Emergency Department Note ---
Impression & Plan Sepsis, Acute exacerbation of chronic obstructive pulmonary disease, Elevated LFTs, Neutropenia ED Provider Note Name: JENNYFER CHAVIS Age: 77 Sex: M Arrives Via: Ambulance Informant: Patient, EMS, daughter (via phone) ED Provider: Tyshawn Oden MD Chief Complaint: Illness Impression: As per impressions above Medical Decision Making: Pleasant 77-year-old gentleman with an extensive past medical history arrives for evaluation of illness. Patient states over the last day worsening shortness of breath secondary to increasing epigastric fullness and discomfort. Multiple episodes of vomiting. On arrival patient is tachycardic tachypneic and in rigors. Concern for sepsis thus sepsis work-up initiated. Diffusely tight lung sounds thus an hour-long neb was also ordered. Patient is a bit dehydrated. An initial 500 mL IV fluids were given and as he tolerated that well another 1 L of IV fluids was given. Heart rate came down still mildly tachycardic. His neb v astly improved his breathing. Given rapid improvement in breathing we will hold off on steroids at this point. Due to an undifferentiated sepsis concern he was initially empirically given cefepime and (vancomycin given due to recent hospital visit). Laboratory findings with moderately elevated LFTs which are new from just a few days ago. CT of the abdomen pelvis questionable gallbladder distention but no clear evidence of gallbladder infection and CBD stone or other acute concern. At this point concern for acute cholangitis thus Flagyl was added in. An ultrasound of the right upper quadrant was also obtained which again revealed a distended gallbladder though no significant findings of obstruction or cholecystitis. Reviewed case with on-call GI who concurred with antibiotic management bring him in the hospital advised getting an MRCP. They also suggested keeping n.p.o. overnight in case procedure necessary. Many repeat evaluations of patient throughout his stay. He is breathing much more comfortably on his typical 3 L nasal cannula. His heart rate has come down some he is not hypotensive. His lactic acid was initially elevated consistent with sepsis as well as the elevated procalcitonin. Interestingly his white count is actually a bit low and with concern for sepsis I suspect this may be due to infectious etiology that he is neutropenic. Hospitalist was consulted fo r further management. Prior Medical Record and Triage/Nursing Notes reviewed by Me External chart reviewed by me including previous hospitalizations and discharge summaries Differentials:Respiratory infection, pneumonia, sepsis, pancreatitis, biliary pathology, cholecystitis, obstruction, ischemia bowel, ACS amongst multiple other pathologies considered Vital Signs: reviewed and remarkable for tachy Interventions: Normal saline bolus 1.5 L IV, DuoNeb 1 hour-long nebulizer, cefepime IV, Vanco IV, Flagyl IV Per sepsis guidelines patient was given a fluid bolus. Total volume of 1.5 L normal saline bolus were given. This is due to his history of fluid overload, CHF and CKD. Labs:Tensive laboratory review of CBC, BMP, LFTs, lipase, procalcitonin, lactate amongst others reveals multiple findings concerning for sepsis and some form of hepatobiliary pathology. Furthermore there is mild elevation of his creatinine from his baseline CKD. Imagin view chest x-ray interpreted by me reveals no evidence of infiltrate, lobar consolidation or effusion at this time. CT of the abdomen pelvis without IV contrast. Informal interpretation by me reveals no evidence of obstruction, free air, free fluid. See entirety of report by radiologist. Ultrasound of the right upper quadrant including liver and gallbladder reveals mildly distended gallbladder without clear evidence of hepatobiliary obstruction or cholecystitis as per radiologist. EKG:As per my interpretation. Indication sepsis. Sinus tachycardia at 121 bpm and a QTc of 587. No overt ischemic findings nor ectopy appreciated. There is poor baseline due to patient tremor. When compared to an EKG of May 08, 2022 similar pathology. Cardiac/Tele Monitoring: Cardiac Monitoring: An Order was placed for continuous cardiac monitoring. The monitor shows a rate of 110 with a sinus tach rhythm. Consults:Gastroenterology consulted. Dr. Echevarria of the hospitalist service consulted for further management Plan: Disposition:Hospitalization. Condition: Good History of Present Illness:77-year-old gentleman arrives for evaluation of illness. Patient notes he was here about a week ago for an episode of SVT and been feeling fine since. This morning patient notes he started developing worsening shortness of breath, fatigue, shaking chills and some vague upper abdominal discomfort. He is now vomited multiple times. Denies any measured fever. No mid or lower abdominal pain or any tearing pain through to his back. Denies any leg pain notes constant swelling in his lower legs which is chronic due to edema issues. Denies any falls, trauma, injuries. States he has been c oughing up some thick mucus the last few days as well. He uses 3 L nasal cannula at home at all times. Past History:See Below Home Medications:See Below Allergies:See Below Vitals:Blood Pressure: 173/66, Pulse 130, RR 24, T 36.9C, O2 94% on NC 3L Physical Exam: GENERAL: Patient is unwell appearing and in moderate distress. Tremulous with rigors EYES: No scleral icterus, unremarkable pupils. ENT: Mucous membranes dry, no nasal congestion. RESPIRATORY: Moderate dyspnea with prolonged expiratory phase faint wheeze appreciated CARDIOVASCULAR: Tachycardia.No murmurs, rubs, gallops appreciated. GASTROINTESTINAL: Abdomen soft, non-tender, no peritonitis.Bowel sounds positive.No masses appreciated. EXTREMITIES: Normal motion all extremities, no cyanosis, 2+ edema. NEUROLOGIC: Alert and oriented, no gross focal neurologic deficit appreciated SKIN: No rash, no jaundice, no diaphoresis. PSYCH: Appropriate GCS: 15 ED Course: Times/Reassessments: Multiple repeat evaluations. Patient is much improved following extended breathing treatment and a fluid resuscitation. He is without significant breathing difficulty or evidence of significant overload following the initial fluid boluses. Critical Care: I have personally spent 45 minutes of critical care time in the direct management of this patient. Acute sepsis secondary to hepatobiliary pathology with significant respiratory distress and lactic acidosis on arrival requiring resuscitation.. This was a life/limb threatening event. This 45 minutes is in excess of all separately billable procedures. Tyshawn Oden MD Past Med/Surg History Medical History Abnormal CT scan, chest BPH with obstruction/lower urinary tract symptoms CAD (coronary artery disease) CKD (chronic kidney disease) stage 3, GFR 30-59 ml/min COPD (chronic obstructive pulmonary disease) not well controlled per pt > worse this time of year with humidity DM type 2 (diabetes mellitus, type 2) NIDDM H/O pulmonary emphysema History of arthritis History of cardioversion 2009> SVT History of heart attack pt unaware of this History of nicotine dependence Hyperlipidemia Hypertension Hypomagnesemia Iron deficiency anemia due to chronic blood loss Multiple pulmonary nodules determined by computed tomography of lung On home oxygen therapy 3 LPM continuous WENDY (obstructive sleep apnea) no cpap > O2 continuous Peripheral neuropathy Pneumonia Apr 2019 Pulmonary air trapping Pulmonary air trapping Renal cyst just monitoring Renal cyst SVT (supraventricular tachycardia) dx 2009> diltiazem for this > controlled Surgical History History of bone marrow biopsy July 2019 > checking due to anemia History of cardiac cath 2009 > no stents History of colonoscopy History of esophagogastroduodenoscopy (EGD) History of nasal surgery Status post cataract extraction of both eyes with insertion of intraocular lens [place] teeth extracted Family History Father Diabetes Mother Diabetes Hypertension Other Brain tumor Depression Stroke Social History Smoking Status: Former smoker Tobacco Type: Cigarettes Age Started Using Tobacco: 20; packs per day: 1.0; Second Hand Exposure: No; Do You Dip or Chew Tobacco: No; Hx Alcohol Use: No Hx Substance Use: No Preferred Language: Tunisian Communication Ability: Effective Network Security Analyst Required: No Beliefs That Will Affect Care: None Current Living Situation: Alone Other Information That Helps Us Care for You: No Feels Safe at Home: Yes Safety Concerns: Feels Safe At This Time Assistive Devices: Glasses and Oxygen - Continuous Allergies Allergies Allergy/AdvReac Type Severity Reaction Status Date / Time ALYSSA Inhibitors Allergy Severe ANAPHYLAXIS Verified 05/09/22 13:02 Home Meds Home Medications Medication Instructions Recorded Confirmed albuterol sulfate 90 mcg/actuation 2 puff inhalation Q4 PRN Wheezing 12/14/17 05/13/22 aerosol inhaler atorvastatin 20 mg tablet 20 mg PO HS 12/14/17 05/13/22 metformin 1,000 mg tablet 1,000 mg PO BID 12/14/17 05/13/22 nitroglycerin 0.4 mg sublingual 0.4 mg sublingual DIRECTED PRN 12/14/17 05/13/22 tablet Chest Pain Oxygen Home #1 ea 11/13/18 05/09/22 aspirin 81 mg tablet,delayed 81 mg PO Q OTHER DAY 11/27/18 05/13/22 release ascorbic acid (vitamin C) 1,000 mg 1 gm PO QAM 06/05/19 05/13/22 tablet tiotropium bromide 2.5 2 puff inhalation QAM 10/16/20 05/13/22 mcg/actuation mist for inhalation (Spiriva Respimat) hydrochlorothiazide 25 mg tablet 25 mg PO BID 07/07/21 05/13/22 pantoprazole 20 mg tablet,delayed 10 mg PO DAILY 07/07/21 05/13/22 release ferrous sulfate 325 mg (65 mg 325 mg PO Q OTHER DAY 08/11/21 05/13/22 iron) tablet (Feosol) mecobalamin (vitamin B12) 1,000 1,000 mcg PO DAILY 10/30/21 05/13/22 mcg chewable tablet diltiazem HCl 240 mg 240 mg PO BID 12/20/21 05/13/22 capsule,extended release 24 hr magnesium oxide 500 mg capsule 400 mg PO BID 12/27/21 05/13/22 dapagliflozin 10 mg tablet 10 mg PO QAM 05/13/22 05/13/22 (Farxiga) semaglutide 14 mg tablet (Rybelsus) 14 mg PO QAM 05/13/22 05/13/22 Previous Rx's Medication Instructions Recorded furosemide 20 mg tablet 20 mg PO .COMPLEX #270 tabs 07/08/21 sodium zirconium cyclosilicate 5 5 g PO Q OTHER DAY #30 ea 11/02/21 gram oral powder packet (Lokelma) Portable Oxygen #1 ea 02/17/22 budesonide 0.5 mg/2 mL suspension 0.25 mg inhalation BID #60 mL 02/17/22 for nebulization arformoterol 15 mcg/2 mL solution 2 ml inhalation BID #120 mL 05/13/22 for nebulization Results & Data (ED) Vital Signs Vital Signs - 24 hr 05/13/22 12:16 05/13/22 13:02 05/13/22 13:00 Temperature 37.3 C Temperature Source Oral Pulse Rate 110 H Pulse Rate [Apical] Pulse Rate from SpO2 Sensor Respiratory Rate 24 Respiratory Effort / Characteristics Spontaneous Labored Respiratory Depth Normal Respiratory Pattern Regular Blood Pressure 173/66 H Blood Pressure [Right Arm] Blood Pressure Mean 101 Blood Pressure Mean [Right Arm] Pulse Oximetry 94 92 Oxygen Delivery Method Nasal Cannula Nasal Cannula Nasal Cannula Oxygen Flow Rate 3 2 3 Sepsis Recent Fever Within 48 Hours No Sepsis New/Unexplained Change in Mental Status No Sepsis Action Taken by Nursing No Action Required 05/13/22 13:00 05/13/22 13:30 05/13/22 13:36 Temperature Temperature Source Pulse Rate Pulse Rate [Apical] 120 H 116 H 114 H Pulse Rate from SpO2 Sensor Respiratory Rate 28 H 28 H 19 Respiratory Effort / Characteristics Non-Labored Spontaneous Non-Labored Spontaneous Non-Labored Spontaneous Respiratory Depth Normal Normal Respiratory Pattern Tachypnea Tachypnea Blood Pressure Blood Pressure [Right Arm] 169/127 H Blood Pressure Mean Blood Pressure Mean [Right Arm] 141 Pulse Oximetry 91 91 93 Oxygen Delivery Method Nasal Cannula Nasal Cannula Nasal Cannula Oxygen Flow Rate 3 3 3 Sepsis Recent Fever Within 48 Hours Sepsis New/Unexplained Change in Mental Status Sepsis Action Taken by Nursing 05/13/22 13:36 05/13/22 14:00 05/13/22 14:30 Temperature Temperature Source Pulse Rate Pulse Rate [Apical] 118 H 121 H Pulse Rate from SpO2 Sensor Respiratory Rate 31 H 26 H Respiratory Effort / Characteristics Non-Labored Spontaneous Short of Breath Non-Labored Spontaneous Non-Labored Spontaneous Respiratory Depth Normal Normal Normal Respiratory Pattern Regular Tachypnea Tachypnea Blood Pressure Blood Pressure [Right Arm] 147/100 H 132/56 L Blood Pressure Mean Blood Pressure Mean [Right Arm] 115 81 Pulse Oximetry 96 96 Oxygen Delivery Method Room Air Room Air Nasal Cannula Oxygen Flow Rate 3 Sepsis Recent Fever Within 48 Hours Sepsis New/Unexplained Change in Mental Status Sepsis Action Taken by Nursing 05/13/22 15:27 05/13/22 16:43 05/13/22 17:46 Temperature Temperature Source Pulse Rate Pulse Rate [Apical] 118 H 112 H 114 H Pulse Rate from SpO2 Sensor Respiratory Rate Respiratory Effort / Characteristics Respiratory Depth Respiratory Pattern Blood Pressure Blood Pressure [Right Arm] 145/60 H 140/63 153/70 H Blood Pressure Mean Blood Pressure Mean [Right Arm] 88 88 97 Pulse Oximetry 93 94 93 Oxygen Delivery Method Nasal Cannula Nasal Cannula Nasal Cannula Oxygen Flow Rate 3 3 3 Sepsis Recent Fever Within 48 Hours Sepsis New/Unexplained Change in Mental Status Sepsis Action Taken by Nursing 05/13/22 18:20 05/13/22 18:31 05/13/22 12:30 Temperature Temperature Source Pulse Rate Pulse Rate [Apical] 119 H 117 H Pulse Rate from SpO2 Sensor Respiratory Rate Respiratory Effort / Characteristics Respiratory Depth Respiratory Pattern Blood Pressure 167/79 H Blood Pressure [Right Arm] 125/60 125/60 Blood Pressure Mean 108 Blood Pressure Mean [Right Arm] 81 81 Pulse Oximetry 93 99 Oxygen Delivery Method Nasal Cannula Nasal Cannula Oxygen Flow Rate 3 3 Sepsis Recent Fever Within 48 Hours Sepsis New/Unexplained Change in Mental Status Sepsis Action Taken by Nursing 05/13/22 12:31 05/13/22 13:00 05/13/22 13:00 Temperature Temperature Source Pulse Rate 123 H 120 H Pulse Rate [Apical] Pulse Rate from SpO2 Sensor Respiratory Rate 34 H 28 H Respiratory Effort / Characteristics Respiratory Depth Respiratory Pattern Blood Pressure 149/77 H Blood Pressure [Right Arm] Blood Pressure Mean 101 Blood Pressure Mean [Right Arm] Pulse Oximetry 91 91 Oxygen Delivery Method Room Air Room Air Oxygen Flow Rate Sepsis Recent Fever Within 48 Hours Sepsis New/Unexplained Change in Mental Status Sepsis Action Taken by Nursing 05/13/22 13:30 05/13/22 13:30 05/13/22 14:00 Temperature Temperature Source Pulse Rate 115 H 117 H Pulse Rate [Apical] Pulse Rate from SpO2 Sensor 116 H 117 H Respiratory Rate 29 H 29 H Respiratory Effort / Characteristics Respiratory Depth Respiratory Pattern Blood Pressure 169/127 H Blood Pressure [Right Arm] Blood Pressure Mean 141 Blood Pressure Mean [Right Arm] Pulse Oximetry 93 96 Oxygen Delivery Method Oxygen Flow Rate Sepsis Recent Fever Within 48 Hours Sepsis New/Unexplained Change in Mental Status Sepsis Action Taken by Nursing 05/13/22 14:01 05/13/22 14:01 05/13/22 14:28 Temperature Temperature Source Pulse Rate 117 H Pulse Rate [Apical] Pulse Rate from SpO2 Sensor 121 H Respiratory Rate 26 H Respiratory Effort / Characteristics Respiratory Depth Respiratory Pattern Blood Pressure 147/100 H 83/63 L Blood Pressure [Right Arm] Blood Pressure Mean 115 69 Blood Pressure Mean [Right Arm] Pulse Oximetry 92 Oxygen Delivery Method Oxygen Flow Rate Sepsis Recent Fever Within 48 Hours Sepsis New/Unexplained Change in Mental Status Sepsis Action Taken by Nursing 05/13/22 14:28 05/13/22 14:30 05/13/22 14:30 Temperature Temperature Source Pulse Rate 122 H 121 H Pulse Rate [Apical] Pulse Rate from SpO2 Sensor 123 H 122 H Respiratory Rate 23 25 H Respiratory Effort / Characteristics Respiratory Depth Respiratory Pattern Blood Pressure 132/56 L Blood Pressure [Right Arm] Blood Pressure Mean 81 Blood Pressure Mean [Right Arm] Pulse Oximetry 95 96 Oxygen Delivery Method Oxygen Flow Rate Sepsis Recent Fever Within 48 Hours Sepsis New/Unexplained Change in Mental Status Sepsis Action Taken by Nursing 05/13/22 15:00 05/13/22 15:00 05/13/22 15:30 Temperature Temperature Source Pulse Rate 120 H Pulse Rate [Apical] Pulse Rate from SpO2 Sensor 121 H Respiratory Rate 31 H Respiratory Effort / Characteristics Respiratory Depth Respiratory Pattern Blood Pressure 145/60 H 172/60 H Blood Pressure [Right Arm] Blood Pressure Mean 88 97 Blood Pressure Mean [Right Arm] Pulse Oximetry 91 Oxygen Delivery Method Oxygen Flow Rate Sepsis Recent Fever Within 48 Hours Sepsis New/Unexplained Change in Mental Status Sepsis Action Taken by Nursing 05/13/22 15:30 05/13/22 16:43 05/13/22 16:44 Temperature Temperature Source Pulse Rate 117 H Pulse Rate [Apical] Pulse Rate from SpO2 Sensor 117 H 114 H Respiratory Rate 24 Respiratory Effort / Characteristics Respiratory Depth Respiratory Pattern Blood Pressure 140/63 Blood Pressure [Right Arm] Blood Pressure Mean 88 Blood Pressure Mean [Right Arm] Pulse Oximetry 95 94 Oxygen Delivery Method Oxygen Flow Rate Sepsis Recent Fever Within 48 Hours Sepsis New/Unexplained Change in Mental Status Sepsis Action Taken by Nursing 05/13/22 17:00 05/13/22 17:00 05/13/22 17:30 Temperature Temperature Source Pulse Rate Pulse Rate [Apical] Pulse Rate from SpO2 Sensor 115 H 112 H Respiratory Rate Respiratory Effort / Characteristics Respiratory Depth Respiratory Pattern Blood Pressure 153/70 H Blood Pressure [Right Arm] Blood Pressure Mean 97 Blood Pressure Mean [Right Arm] Pulse Oximetry 93 93 Oxygen Delivery Method Oxygen Flow Rate Sepsis Recent Fever Within 48 Hours Sepsis New/Unexplained Change in Mental Status Sepsis Action Taken by Nursing 05/13/22 18:00 05/13/22 18:00 05/13/22 18:30 Temperature Temperature Source Pulse Rate 118 H 118 H Pulse Rate [Apical] Pulse Rate from SpO2 Sensor 118 H 118 H Respiratory Rate 31 H 22 Respiratory Effort / Characteristics Respiratory Depth Respiratory Pattern Blood Pressure 125/60 Blood Pressure [Right Arm] Blood Pressure Mean 81 Blood Pressure Mean [Right Arm] Pulse Oximetry 93 93 Oxygen Delivery Method Oxygen Flow Rate Sepsis Recent Fever Within 48 Hours Sepsis New/Unexplained Change in Mental Status Sepsis Action Taken by Nursing Laboratory Data 05/13/22 13:06 05/13/22 13:06 Lab Results 05/13/22 05/13/22 05/13/22 Range/Units 13:06 13:06 13:06 WBC 4.28 L (4.8-10.8) K/ul RBC 3.93 L (4.70-6.10) M/uL Hgb 10.9 L (14.0-18.0) g/dl Hct 34.2 L (42.0-52.0) % MCV 87.0 (80.0-100.0) fL MCH 27.7 (25.0-34.0) pg MCHC 31.9 L (32.0-36.0) g/dL RDW Std Deviation 50.3 H (36.4-46.3) fL RDW Coeff of Arnoldo 15.8 H (11.5-14.5) % Plt Count 200 (130-400) K/uL MPV 10.0 (9.4-12.4) fL Immature Gran % (Auto) 0.2 % Neut % (Auto) 93.7 % Lymph % (Auto) 5.4 % [place] % (Auto) 0.5 % Eos % (Auto) 0.0 % Baso % (Auto) 0.2 % Neut # (Auto) 4.01 (1.40-6.50) K/uL Lymph # (Auto) 0.23 L (1.2-3.4) K/uL [place] # (Auto) 0.02 L (0.11-0.59) K/uL Eos # (Auto) 0.00 (0-0.50) K/uL Baso # (Auto) 0.01 (0-0.2) K/uL Immature Gran # (Auto) 0.01 (0.01-0.20) K/uL Sodium 140 (136-145) mmol/L Potassium 4.5 (3.5-5.1) mmol/L Chloride 100 (98-107) mmol/L Carbon Dioxide 32 (21-32) mmol/L Anion Gap 8 (3-11) BUN 40 H (6-23) mg/dl Creatinine 1.80 H (0.6-1.4) mg/dl Est Cr Clr Drug Dosing Not Reportable Est GFR ( Amer) 41.7 ml/min Est GFR (Non-Af Amer) 36.0 ml/min BUN/Creatinine Ratio 22.2 H (10-20) Glucose 168 H (70-99(Fasting)) mg/dl Lactate 2.7 H* (0.4-2.0) mmol/L Calcium 9.3 (8.5-10.1) mg/dl Magnesium 2.2 (1.7-2.4) mg/dl Total Bilirubin 1.9 H (0.2-1.0) mg/dl Direct Bilirubin 1.1 H (0-0.2) mg/dl AST 385 H (13-39) U/L ALT 244 H (7-52) U/L Alkaline Phosphatase 123 H (34-104) U/L Troponin I High Sens 11.1 (0-20) pg/ml Total Protein 7.7 (6.0-8.3) gm/dl Albumin 4.5 (3.4-5.0) gm/dl Procalcitonin (0-0.5) ng/ml Urine Color Urine Appearance (Clear) Urine pH (4.5-7.5) Ur Specific [place] (1.000-1.030) Urine Protein (Negative) Urine Glucose (UA) (Negative) Urine Ketones (Negative) Urine Blood (Negative) Urine Nitrite (Negative) Urine Bilirubin (Negative) Urine Urobilinogen (Negative) Ur Leukocyte Esterase (Negative) Urine WBC (Auto) (0-5) /hpf Urine RBC (Auto) (0-4) /hpf U Hyaline Cast (Auto) (0-5) /lpf U Epithel Cells (Auto) (0-5) /lpf Urine Bacteria (Auto) (Negative) SARS-CoV-2 (PCR) (Negative) Enterobacterales (PCR) (NotDetected) E. coli (PCR) (NotDetected) Influenza Type A (PCR) (Neg) Influenza Type B (PCR) (Neg) RSV (RT-PCR) (Neg) mcr-1 Colistin Res Gene PCR (NotDetected) blaIMP Car res Gene PCR (NotDetected) KPC-Carbap Res Gene PCR (NotDetected) blaNDM Car Res Gene PCR (NotDetected) OXA-48 Carbapenem Resis Gene (PCR) (NotDetected) blaVIM Car Res Gene PCR (NotDetected) CTX-M Gene Resistance (PCR) (NotDetected) Bld Cult ID Panel PCR (NotDetected) 05/13/22 05/13/22 05/13/22 Range/Units 13:06 13:06 13:26 WBC (4.8-10.8) K/ul RBC (4.70-6.10) M/uL Hgb (14.0-18.0) g/dl Hct (42.0-52.0) % MCV (80.0-100.0) fL MCH (25.0-34.0) pg MCHC (32.0-36.0) g/dL RDW Std Deviation (36.4-46.3) fL RDW Coeff of Arnoldo (11.5-14.5) % Plt Count (130-400) K/uL MPV (9.4-12.4) fL Immature Gran % (Auto) % Neut % (Auto) % Lymph % (Auto) % [place] % (Auto) % Eos % (Auto) % Baso % (Auto) % Neut # (Auto) (1.40-6.50) K/uL Lymph # (Auto) (1.2-3.4) K/uL [place] # (Auto) (0.11-0.59) K/uL Eos # (Auto) (0-0.50) K/uL Baso # (Auto) (0-0.2) K/uL Immature Gran # (Auto) (0.01-0.20) K/uL Sodium (136-145) mmol/L Potassium (3.5-5.1) mmol/L Chloride (98-107) mmol/L Carbon Dioxide (21-32) mmol/L Anion Gap (3-11) BUN (6-23) mg/dl Creatinine (0.6-1.4) mg/dl Est Cr Clr Drug Dosing Est GFR ( Amer) ml/min Est GFR (Non-Af Amer) ml/min BUN/Creatinine Ratio (10-20) Glucose (70-99(Fasting)) mg/dl Lactate (0.4-2.0) mmol/L Calcium (8.5-10.1) mg/dl Magnesium (1.7-2.4) mg/dl Total Bilirubin (0.2-1.0) mg/dl Direct Bilirubin (0-0.2) mg/dl AST (13-39) U/L ALT (7-52) U/L Alkaline Phosphatase (34-104) U/L Troponin I High Sens (0-20) pg/ml Total Protein (6.0-8.3) gm/dl Albumin (3.4-5.0) gm/dl Procalcitonin 1.38 H (0-0.5) ng/ml Urine Color Urine Appearance (Clear) Urine pH (4.5-7.5) Ur Specific [place] (1.000-1.030) Urine Protein (Negative) Urine Glucose (UA) (Negative) Urine Ketones (Negative) Urine Blood (Negative) Urine Nitrite (Negative) Urine Bilirubin (Negative) Urine Urobilinogen (Negative) Ur Leukocyte Esterase (Negative) Urine WBC (Auto) (0-5) /hpf Urine RBC (Auto) (0-4) /hpf U Hyaline Cast (Auto) (0-5) /lpf U Epithel Cells (Auto) (0-5) /lpf Urine Bacteria (Auto) (Negative) SARS-CoV-2 (PCR) NEGATIVE (Negative) Enterobacterales (PCR) DETECTED A (NotDetected) E. coli (PCR) DETECTED A (NotDetected) Influenza Type A (PCR) Negative (Neg) Influenza Type B (PCR) Negative (Neg) RSV (RT-PCR) Negative (Neg) mcr-1 [place] Res Gene PCR Not Detected (NotDetected) blaIMP Car res Gene PCR Not Detected (NotDetected) KPC-Carbap Res Gene PCR Not Detected (NotDetected) blaNDM Car Res Gene PCR Not Detected (NotDetected) OXA-48 Carbapenem Resis Gene (PCR) Not Detected (NotDetected) blaVIM Car Res Gene PCR Not Detected (NotDetected) CTX-M Gene Resistance (PCR) DETECTED A* (NotDetected) Bld Cult ID Panel PCR See PCR Comment (NotDetected) 05/13/22 05/13/22 Range/Units 15:22 18:20 WBC (4.8-10.8) K/ul RBC (4.70-6.10) M/uL Hgb (14.0-18.0) g/dl Hct (42.0-52.0) % MCV (80.0-100.0) fL MCH (25.0-34.0) pg MCHC (32.0-36.0) g/dL RDW Std Deviation (36.4-46.3) fL RDW Coeff of Arnoldo (11.5-14.5) % Plt Count (130-400) K/uL MPV (9.4-12.4) fL Immature Gran % (Auto) % Neut % (Auto) % Lymph % (Auto) % [place] % (Auto) % Eos % (Auto) % Baso % (Auto) % Neut # (Auto) (1.40-6.50) K/uL Lymph # (Auto) (1.2-3.4) K/uL [place] # (Auto) (0.11-0.59) K/uL Eos # (Auto) (0-0.50) K/uL Baso # (Auto) (0-0.2) K/uL Immature Gran # (Auto) (0.01-0.20) K/uL Sodium (136-145) mmol/L Potassium (3.5-5.1) mmol/L Chloride (98-107) mmol/L Carbon Dioxide (21-32) mmol/L Anion Gap (3-11) BUN (6-23) mg/dl Creatinine (0.6-1.4) mg/dl Est Cr Clr Drug Dosing Est GFR ( Amer) ml/min Est GFR (Non-Af Amer) ml/min BUN/Creatinine Ratio (10-20) Glucose (70-99(Fasting)) mg/dl Lactate 1.6 (0.4-2.0) mmol/L Calcium (8.5-10.1) mg/dl Magnesium (1.7-2.4) mg/dl Total Bilirubin (0.2-1.0) mg/dl Direct Bilirubin (0-0.2) mg/dl AST (13-39) U/L ALT (7-52) U/L Alkaline Phosphatase (34-104) U/L Troponin I High Sens (0-20) pg/ml Total Protein (6.0-8.3) gm/dl Albumin (3.4-5.0) gm/dl Procalcitonin (0-0.5) ng/ml Urine Color Yellow Urine Appearance Clear (Clear) Urine pH 7.0 (4.5-7.5) Ur Specific [place] 1.015 (1.000-1.030) Urine Protein 1+ H (Negative) Urine Glucose (UA) 3+ H (Negative) Urine Ketones Negative (Negative) Urine Blood Negative (Negative) Urine Nitrite Negative (Negative) Urine Bilirubin Negative (Negative) Urine Urobilinogen Negative (Negative) Ur Leukocyte Esterase Negative (Negative) Urine WBC (Auto) 1-5 (0-5) /hpf Urine RBC (Auto) 0-4 (0-4) /hpf U Hyaline Cast (Auto) 1-5 (0-5) /lpf U Epithel Cells (Auto) 5-10 H (0-5) /lpf Urine Bacteria (Auto) Negative (Negative) SARS-CoV-2 (PCR) (Negative) Enterobacterales (PCR) (NotDetected) E. coli (PCR) (NotDetected) Influenza Type A (PCR) (Neg) Influenza Type B (PCR) (Neg) RSV (RT-PCR) (Neg) mcr-1 Colistin Res Gene PCR (NotDetected) blaIMP Car res Gene PCR (NotDetected) KPC-Carbap Res Gene PCR (NotDetected) blaNDM Car Res Gene PCR (NotDetected) OXA-48 Carbapenem Resis Gene (PCR) (NotDetected) blaVIM Car Res Gene PCR (NotDetected) CTX-M Gene Resistance (PCR) (NotDetected) Bld Cult ID Panel PCR (NotDetected) Administered Medications Budesonide (Budesonide 0.5 Mg/2 Ml Vial (Pulmicort)) 0.25 mg INH BIDR [facility] Stop: 06/12/22 21:03 Last Admin: 05/14/22 07:02 Dose: 0.25 mg Documented By: Admin: 05/13/22 21:48 Dose: Not Given Documented By: DEBBIE Diltiazem HCl (Diltiazem Hcl 240 Mg Capcr) 240 mg PO BID [facility] Stop: 06/12/22 21:03 Last Admin: 05/14/22 07:36 Dose: 240 mg Documented By: LEE ANN Admin: 05/13/22 21:50 Dose: 240 mg Documented By: NICK Enoxaparin Sodium (Enoxaparin Inj 40 Mg/0.4 Ml Syr) 40 mg SQ QPM [facility] Stop: 06/12/22 21:14 Last Admin: 05/13/22 21:51 Dose: 40 mg Documented By: NICK Formoterol Fumarate (Formoterol 20 Mcg/2 Ml Vial) 20 mcg INH BIDR [facility] Stop: 06/13/22 06:59 Last Admin: 05/14/22 07:02 Dose: 20 mcg Documented By: JONO Ceftriaxone Sodium 2,000 mg/ (Dextrose) 70 mls @ 100 mls/hr IV Q24H [facility]; Protocol Stop: 05/23/22 21:29 Last Infusion: 05/13/22 23:09 Dose: 0 mls/hr Documented By: Admin: 05/13/22 22:25 Dose: 100 mls/hr Documented By: NICK Metronidazole (Flagyl) 500 mg in 100 mls @ 100 mls/hr IV Q8H [facility] Stop: 05/24/22 00:00 Last Admin: 05/14/22 07:36 Dose: 100 mls/hr Documented By: LEE ANN Infusion: 05/14/22 00:25 Dose: 0 mls/hr Documented By: Admin: 05/13/22 23:24 Dose: 100 mls/hr Documented By: NICK Pantoprazole Sodium 40 mg/ (Syringe) 10 mls @ 5 mls/min IV DAILY@1100 [facility] Stop: 06/12/22 21:03 Last Admin: 05/13/22 21:50 Dose: 5 mls/min Documented By: NICK Lactated Ringer's (Lr) 1,000 mls @ 125 mls/hr IV .Q8H [facility] Stop: 06/12/22 21:14 Last Admin: 05/14/22 07:23 Dose: 125 mls/hr Documented By: LEE ANN Infusion: 05/14/22 07:23 Dose: 125 mls/hr Documented By: LEE ANN Admin: 05/14/22 07:21 Dose: 125 mls/hr Documented By: Infusion: 05/14/22 07:15 Dose: 125 mls/hr Documented By: Infusion: 05/13/22 23:20 Dose: 125 mls/hr Documented By: Infusion: 05/13/22 22:00 Dose: 0 mls/hr Documented By: Admin: 05/13/22 21:55 Dose: 125 mls/hr Documented By: NICK Insulin Aspart (Insulin Aspart Per Unit) 0 units SC Q6 [facility] Stop: 06/12/22 22:44 Last Admin: 05/14/22 06:05 Dose: Not Given Documented By: Admin: 05/13/22 23:04 Dose: 4 units Documented By: NICK Co-signed By: KAYLEE Umeclidinium [place] (Umeclidinium [place] 62.5mcg/Blister 7 Puffs/Inhaler) 1 puffs INH QAM [facility]; Protocol Stop: 06/13/22 08:59 Last Admin: 05/14/22 07:36 Dose: 1 puffs Documented By: LEE ANN Discontinued Medications Albuterol (Albut/Ipratrop 3mg/0.5mg Neb 3 Ml Vial) 12 ml NEB ONE ONE; Protocol Stop: 05/13/22 12:32 Last Admin: 05/13/22 13:35 Dose: 12 ml Documented By: JONO Sodium Chloride (Nss 1000ml) 500 mls @ 999 mls/hr IV .Q31M ONE Stop: 05/13/22 13:01 Last Infusion: 05/13/22 13:52 Dose: 0 mls/hr Documented By: Admin: 05/13/22 13:19 Dose: 999 mls/hr Documented By: REX Cefepime HCl (Maxipime) 2,000 mg in 20 mls @ 5 mls/min IV NOW STA; Protocol Stop: 05/13/22 13:53 Last Admin: 05/13/22 14:07 Dose: 5 mls/min Documented By: SHANKAR Vancomycin HCl 1,500 mg/ (Sodium Chloride) 530 mls @ 200 mls/hr IV NOW ONE Stop: 05/13/22 16:19 Last Admin: 05/13/22 14:28 Dose: 200 mls/hr Documented By: SHANKAR Sodium Chloride (Nss 1000ml) 1,000 mls @ 999 mls/hr IV .Q1H1M ONE Stop: 05/13/22 15:52 Last Infusion: 05/13/22 16:11 Dose: 0 mls/hr Documented By: Admin: 05/13/22 15:09 Dose: 999 mls/hr Documented By: ZEE Metronidazole (Flagyl) 500 mg in 100 mls @ 100 mls/hr IV NOW STA Stop: 05/13/22 16:43 Last Infusion: 05/13/22 17:41 Dose: 0 mls/hr Documented By: Admin: 05/13/22 16:40 Dose: 100 mls/hr Documented By: ZEE Imaging Data Radiologist's Impression: Chest X-Ray 05/13/22 12:32 SINGLE VIEW CHEST CLINICAL HISTORY: Sepsis. FINDINGS: An AP, portable, upright chest radiograph is compared to study dated 05/08/2022 and correlated with chest CT dated 03/29/2022. The examination is degraded by portable technique and apical lordotic positioning. The heart is mildly enlarged noting atherosclerotic calcification of the thoracic aorta. The pulmonary vasculature is noncongested. Enlargement of the central pulmonary vessels suggest pulmonary artery hypertension. Advanced emphysema and chronic interstitial thickening is similar to previous. Scarring/atelectasis is noted at both lung bases. No superimposed airspace consolidation or large pleural effusion is identified. No pneumothorax is seen. The skeletal structures are osteopenic. The bony thorax is grossly intact. IMPRESSION: Cardiomegaly and advanced emphysema with no acute cardiopulmonary abnormality identified. ACT 112: Negative or not required by law. Electronically signed by: Devan Irene M.D. 05/13/2022 12:56 PM Abdomen/Pelvis CT 05/13/22 13:[address] WITHOUT CONTRAST CT DOSE: 869.34 mGycm HISTORY: epigastric pain TECHNIQUE: Multiaxial CT images of the abdomen and pelvis were performed without contrast. A dose lowering technique was utilized adhering to the principles of ALARA. COMPARISON STUDY: Abdomen and pelvis CT 07/27/2020. FINDINGS: Mild motion artifact. Small patchy densities within the lung bases posteriorly favor mild dependent change. Old mild compression deformities at L1 and L2 are stable. There is an old right posterior 11th rib fracture. No acute rib fractures identified. Trace pericardial effusion is noted. The unenhanced liver, spleen, adrenal glands, and pancreas are unremarkable. The gallbladder is mildly distended. No gallbladder wall thickening. Mild to moderate bilateral perinephric edema, unchanged. Stable bilateral renal hypodense and hyperdense lesions. These are incompletely characters on this noncontrast study but favor cysts. The dominant 6.2 cm hyperdense lesion within the lower pole the right kidney continues to exert mass effect along the right renal pelvis and likely ac counts for the moderate right hydronephrosis. This is similar to the prior study. No renal or ureteral stones identified. No left-sided hydronephrosis. Multiple prominent periportal and retroperitoneal lymph nodes remain stable. Calcified plaque within the normal caliber abdominal aorta. The bladder is unremarkable. The prostate gland is mildly enlarged. Suboptimal evaluation for bowel pathology due to the lack of intravenous and oral contrast. However, there is no definite bowel wall thickening or obstruction. Normal appendix. Moderate well-formed stool within the rectum. IMPRESSION: 1. Moderate hydronephrosis likely secondary to a 6.2 cm right renal cyst which exerts mass effect on the right renal pelvis. This is similar to the prior s tudy. 2. No left-sided hydronephrosis. 3. No definite bowel wall thickening or obstruction. 4. Normal appendix. 5. Mildly distended gallbladder. However, no gallbladder wall thickening. 6. Additional findings as described above. ACT 112: Negative or not required by law. Electronically signed by: Rocco Logan M.D. 05/13/2022 2:41 PM Abdomen Ultrasound 05/13/22 14:56 ABDOMINAL ULTRASOUND, RIGHT UPPER QUADRANT HISTORY: elevated LFTs. GB Liver eval. COMPARISON: CT of the abdomen and pelvis May 13, 2022. FINDINGS: No hepatic lesions are identified. There is no biliary ductal dilatation. The common bile duct measures 6 mm in caliber. Pancreatic body is normal. Head and tail are partially obscured. The gallbladder is moderately distended. The wall is mildly thickened. There is no pericholecystic fluid. No gallstones are identified. No sonographic Farmer sign was elicited. A cyst wi thin the right renal pelvis is again noted. This measures 5.4 x 5.2 x 4.9 cm. Right hydronephrosis is present. IMPRESSION: 1. No gallstones or biliary ductal dilatation. 2. Moderately distended gallbladder with mild gallbladder wall thickening. However, no sonographic Farmer sign. No convincing evidence for acute cholecystitis. If indicated, a hepatobiliary scan could be obtained. 3. Right renal cyst with moderate hydronephrosis, as shown on CT. ACT 112: Negative or not required by law. Electronically signed by: Seth Sandy M.D. 05/13/2022 4:38 PM Discharge Plan Visit Data Chief Complaint: Shortness of Breath/Dyspnea Stated Complaint: CHEST PAIN, SOB, VOMITING ED Provider: Tyshawn Oden Discharge Problem: Sepsis, Acute exacerbation of chronic obstructive pulmonary disease, Elevated LFTs, Neutropenia Patient Disposition: Admitted As Inpatient Discharge Instructions Interventions: ED Discharge Assessment Last Done: 05/13/22 20:42 : Sepsis Qualifiers: Sepsis type: sepsis due to unspecified organism Sepsis acute organ dysfunction status: with acute organ dysfunction Severe sepsis acute organ dysfunction type: acute liver failure Hepatic coma status: without hepatic coma Severe sepsis shock status: without septic shock Qualified Code(s): A41.9 - Sepsis, unspecified organism Neutropenia Qualifiers: Neutropenia type: due to infection Qualified Code(s): D70.3 - Neutropenia due to infection
--- NOTE | 2022-05-13 12:57 | XRay Report ---
SINGLE VIEW CHEST CLINICAL HISTORY: Sepsis. FINDINGS: An AP, portable, upright chest radiograph is compared to study dated 05/08/2022 and correlate d with chest CT dated 03/29/2022. The examination is degraded by portable technique and apical lordot ic positioning. The heart is mildly enlarged noting atherosclerotic calcification of the thoracic aor ta. The pulmonary vasculature is noncongested. Enlargement of the central pulmonary vessels suggest p ulmonary artery hypertension. Advanced emphysema and chronic interstitial thickening is similar to pr evious. Scarring/atelectasis is noted at both lung bases. No superimposed airspace consolidation or l arge pleural effusion is identified. No pneumothorax is seen. The skeletal structures are osteopenic. The bony thorax is grossly intact. IMPRESSION: Cardiomegaly and advanced emphysema with no acute cardiopulmonary abnormality identified. ACT 112: Negative or not required by law. Electronically signed by: Devan Irene M.D. 05/13/2022 12:56 PM
[2022-05-13 13:29] LABS: Hematocrit (blood only) 34.2 % (42.0-52.0); Hemoglobin 10.9 g/dl (14.0-18.0); Mean Corpuscular Hemoglobin 27.7 pg (25.0-34.0); Mean Corpuscular Hgb Conc 31.9 g/dL (32.0-36.0); Platelet Count 200 K/uL (130-400); RDW Coefficient of Variation 15.8 % (11.5-14.5); RDW Standard Deviation 50.3 fL (36.4-46.3); Red Blood Count 3.93 M/uL (4.70-6.10); White Blood Count 4.28 K/ul (4.8-10.8)
[2022-05-13 13:45] LABS: Alanine Aminotransferase 244 U/L (7-52); Albumin Level 4.5 gm/dl (3.4-5.0); Alkaline Phosphatase 123 U/L (34-104); Anion Gap 8 (3-11); Aspartate Aminotransferase 385 U/L (13-39); BUN Creatinine Ratio 22.2 (10-20); Bilirubin Direct 1.1 mg/dl (0-0.2); Bilirubin,Total 1.9 mg/dl (0.2-1.0); Blood Urea Nitrogen 40 mg/dl (6-23); Calcium 9.3 mg/dl (8.5-10.1); Carbon Dioxide 32 mmol/L (21-32); Chloride 100 mmol/L (98-107); Est GFR (African American) 41.7 ml/min; Glucose 168 mg/dl (70-99(Fasting)); Magnesium 2.2 mg/dl (1.7-2.4); Potassium 4.5 mmol/L (3.5-5.1); Sodium 140 mmol/L (136-145); Total Protein 7.7 gm/dl (6.0-8.3)
[2022-05-13 13:48] LABS: Troponin I High Sensitivity 11.1 pg/ml (0-20)
[2022-05-13] MEDS ORDERED: VANCOMYCIN CONSULT ACTIVE PRN (13:50)
[2022-05-13] MEDS ORDERED: CEFEPIME 2,000 MG/20 ML VIAL IV STA (13:50)
[2022-05-13] MEDS ORDERED: VANCOMYCIN HCL 1,500 MG in SODIUM CHLORIDE 0.9% 500 ML IV ONE (13:50)
[2022-05-13 13:59] LABS: Basophils # (auto) 0.01 K/uL (0-0.2); Basophils % (auto) 0.2 %; Immature Granulocytes # (auto) 0.01 K/uL (0.01-0.20); Immature Granulocytes % (auto) 0.2 %; Lymphocytes # (auto) 0.23 K/uL (1.2-3.4); Lymphocytes % (auto) 5.4 %; Monocytes # (auto) 0.02 K/uL (0.11-0.59); Monocytes % (auto) 0.5 %; Neutrophils # (auto) 4.01 K/uL (1.40-6.50); Neutrophils % (auto) 93.7 %
[2022-05-13 14:12] LABS: Influenza A virus by PCR Negative (Neg); Influenza B virus by PCR Negative (Neg); RSV by PCR Negative (Neg); SARS CoV2 RNA(COVID-19) Ceph NEGATIVE (Negative)
--- NOTE | 2022-05-13 14:42 | CT Scan Report ---
ABDOMEN AND PELVIS CT WITHOUT CONTRAST CT DOSE: 869.34 mGycm HISTORY: epigastric pain TECHNIQUE: Multiaxial CT images of the abdomen and pelvis were performed without contrast. A dose lo wering technique was utilized adhering to the principles of ALARA. COMPARISON STUDY: Abdomen and pelvis CT 07/27/2020. FINDINGS: Mild motion artifact. Small patchy densities within the lung bases posteriorly favor mild d ependent change. Old mild compression deformities at L1 and L2 are stable. There is an old right post erior 11th rib fracture. No acute rib fractures identified. Trace pericardial effusion is noted. The unenhanced liver, spleen, adrenal glands, and pancreas are unremarkable. The gallbladder is mildly di stended. No gallbladder wall thickening. Mild to moderate bilateral perinephric edema, unchanged. Sta ble bilateral renal hypodense and hyperdense lesions. These are incompletely characters on this nonco ntrast study but favor cysts. The dominant 6.2 cm hyperdense lesion within the lower pole the right k idney continues to exert mass effect along the right renal pelvis and likely accounts for the moderat e right hydronephrosis. This is similar to the prior study. No renal or ureteral stones identified. N o left-sided hydronephrosis. Multiple prominent periportal and retroperitoneal lymph nodes remain sta ble. Calcified plaque within the normal caliber abdominal aorta. The bladder is unremarkable. The pro state gland is mildly enlarged. Suboptimal evaluation for bowel pathology due to the lack of intraven ous and oral contrast. However, there is no definite bowel wall thickening or obstruction. Normal beatriz endix. Moderate well-formed stool within the rectum. IMPRESSION: 1. Moderate hydronephrosis likely secondary to a 6.2 cm right renal cyst which exerts mass effect on the right renal pelvis. This is similar to the prior study. 2. No left-sided hydronephrosis. 3. No definite bowel wall thickening or obstruction. 4. Normal appendix. 5. Mildly distended gallbladder. However, no gallbladder wall thickening. 6. Additional findings as described above. ACT 112: Negative or not required by law. Electronically signed by: Rocco oLgan M.D. 05/13/2022 2:41 PM
[2022-05-13] MEDS ORDERED: SODIUM CHLORIDE 0.9% 1000ML 1,000 ML IV ONE (14:52)
[2022-05-13] MEDS ORDERED: metroNIDAZOLE 500 MG/100 ML BAG IV STA (15:44)
--- NOTE | 2022-05-13 16:41 | Ultrasound Report ---
ABDOMINAL ULTRASOUND, RIGHT UPPER QUADRANT HISTORY: elevated LFTs. GB Liver eval. COMPARISON: CT of the abdomen and pelvis May 13, 2022. FINDINGS: No hepatic lesions are identified. There is no biliary ductal dilatation. The common bile d uct measures 6 mm in caliber. Pancreatic body is normal. Head and tail are partially obscured. The ga llbladder is moderately distended. The wall is mildly thickened. There is no pericholecystic fluid. N o gallstones are identified. No sonographic Farmer sign was elicited. A cyst within the right renal p aleja is again noted. This measures 5.4 x 5.2 x 4.9 cm. Right hydronephrosis is present. IMPRESSION: 1. No gallstones or biliary ductal dilatation. 2. Moderately distended gallbladder with mild gallbladder wall thickening. However, no sonographic Mu rphy sign. No convincing evidence for acute cholecystitis. If indicated, a hepatobiliary scan could b e obtained. 3. Right renal cyst with moderate hydronephrosis, as shown on CT. ACT 112: Negative or not required by law. Electronically signed by: Seth Sandy M.D. 05/13/2022 4:38 PM
--- NOTE | 2022-05-13 17:22 | Electrocardiogram Report ---
Test Reason : Blood Pressure : / mmHG Vent. Rate : 121 BPM Atrial Rate : 121 BPM P-R Int : 138 ms QRS Dur : 082 ms QT Int : 414 ms P-R-T Axes : 041 087 085 degrees QTc Int : 587 ms Poor data quality, interpretation may be adversely affected Sinus tachycardia Left atrial enlargement Diffuse Nonspecific T wave abnormality Abnormal ECG When compared with ECG of 08-MAY-2022 22:28, Artifact now present Otherwise no significant change Confirmed by Efrain Hutson ([id number]) on 05/13/2022 5:22:10 PM Referred By: Confirmed By:Efrain Hutson
--- NOTE | 2022-05-13 18:03 | History & Physical Report ---
Date of Service May 13, 2022 Assessment & Plan (1) Elevated LFTs: Plan: Suspected acute cholangitis versus acute cholecystitis. Having epigastric pain more than right upper quadrant pain on exam. ER provider discussed with gastroenterology and requested MRCP prior to ERCP NPO Switch antibiotics to ceftriaxone plus metronidazole Follow-up blood cultures Consult gastroenterology and general surgery Trend LFTs with a.m. labs (2) SVT (supraventricular tachycardia): Plan: Continue diltiazem 240 mg p.o. twice daily (3) Chronic respiratory failure with hypoxia: Plan: Baseline 3 L/min O2 (4) Severe chronic obstructive pulmonary disease: Plan: Continue Spiriva Respimat 2 puffs daily Continue Perforomist and budesonide nebulizers twice daily (5) DM type 2 (diabetes mellitus, type 2): Plan: HbA1c 7.7 in February. No need to repeat this as it has been within the last 3 months. Hold home meds of Farxiga and metformin Start Novolog: --Goal BSG Range: Low 110 mg/dL, High 140 mg/dL --Correction Factor: 20 mg/dL/unit --Carbohydrate ratio = 6 g/unit --BSGs ACHS if eating, q6h if npo Consult pharmacy for ongoing glycemic control (6) Coronary artery disease: Plan: Hold aspirin temporarily pending possible surgical intervention Hold atorvastatin while n.p.o. Not on beta-sawyer chronically (7) Anemia: Plan: Appears to be at baseline Repeat CBC in a.m. (8) Hypertension: Plan: Patient currently appears clinically dry therefore we will hold his Lasix and hydrochlorothiazide Continue diltiazem for rate control as above (9) WENDY (obstructive sleep apnea): Plan: Patient intolerant to CPAP Plan VTE prophylaxis - Lovenox 40 mg subcu daily Diet - n.p.o. Disposition - admit to PCU due to possible need of diltiazem intravenous drip and recent history of SVT Admission and Anticipated Discharge Date Admission Date: May 13, 2022 History of Present Illness Chief Complaint: Abdominal pain and shortness of breath Primary Care Provider: Diaz Thomas MD Kristopher Louie is a 77 year old male with severe COPD, pulmonary hypertension and chronic O2 use who presents to the ER with bilateral upper abdominal pain and shortness of breath. He reports feeling well yesterday with no symptoms. His symptoms started around 6:30 AM this morning with shortness of breath due to bilateral upper quadrant pain with associated nausea and vomiting without hemoptysis. He denies any fever, chills, chest pain, cough, sinus pain, nasal congestion, melena, diarrhea, constipation, bright red blood in stool. Never had a similar sensation previously. He was recently in the emergency room for SVT 5 days ago. He reports no recurrent episodes since then. In the ER he was noted to have elevated LFTs with subsequent ultrasound showing a moderately distended gallbladder with a normal size common bile duct. Reportedly the ER provider discussed with gastroenterology and recommended an MRCP, intravenous antibiotics and n.p.o. after midnight. Allergies Allergy/AdvReac Type Severity Reaction Status Date / Time ALYSSA Inhibitors Allergy Severe ANAPHYLAXIS Verified 05/09/22 13:02 Home Medications Medication Instructions Recorded Confirmed Type albuterol sulfate 90 mcg/actuation 2 puff inhalation Q4 PRN Wheezing 12/14/17 05/13/22 History aerosol inhaler atorvastatin 20 mg tablet 20 mg PO HS 12/14/17 05/13/22 History metformin 1,000 mg tablet 1,000 mg PO BID 12/14/17 05/13/22 History nitroglycerin 0.4 mg sublingual 0.4 mg sublingual DIRECTED PRN 12/14/17 05/13/22 History tablet Chest Pain Oxygen Home #1 ea 11/13/18 05/09/22 History aspirin 81 mg tablet,delayed 81 mg PO Q OTHER DAY 11/27/18 05/13/22 History release ascorbic acid (vitamin C) 1,000 mg 1 gm PO QAM 06/05/19 05/13/22 History tablet tiotropium bromide 2.5 2 puff inhalation QAM 10/16/20 05/13/22 History mcg/actuation mist for inhalation (Spiriva Respimat) hydrochlorothiazide 25 mg tablet 25 mg PO BID 07/07/21 05/13/22 History pantoprazole 20 mg tablet,delayed 10 mg PO DAILY 07/07/21 05/13/22 History release furosemide 20 mg tablet 20 mg PO .COMPLEX #270 tabs 07/08/21 05/13/22 Rx ferrous sulfate 325 mg (65 mg 325 mg PO Q OTHER DAY 08/11/21 05/13/22 History iron) tablet (Feosol) mecobalamin (vitamin B12) 1,000 1,000 mcg PO DAILY 10/30/21 05/13/22 History mcg chewable tablet sodium zirconium cyclosilicate 5 5 g PO Q OTHER DAY #30 ea 11/02/21 05/13/22 Rx gram oral powder packet ([facility]) diltiazem HCl 240 mg 240 mg PO BID 12/20/21 05/13/22 History capsule,extended release 24 hr magnesium oxide 500 mg capsule 400 mg PO BID 12/27/21 05/13/22 History Portable Oxygen #1 ea 02/17/22 05/09/22 Rx budesonide 0.5 mg/2 mL suspension 0.25 mg inhalation BID #60 mL 02/17/22 05/13/22 Rx for nebulization arformoterol 15 mcg/2 mL solution 2 ml inhalation BID #120 mL 05/13/22 05/13/22 Rx for nebulization dapagliflozin 10 mg tablet 10 mg PO QAM 05/13/22 05/13/22 History (Farxiga) semaglutide 14 mg tablet (Rybelsus) 14 mg PO QAM 05/13/22 05/13/22 History Past Med/Surg History Medical History Abnormal CT scan, chest BPH with obstruction/lower urinary tract symptoms CAD (coronary artery disease) CKD (chronic kidney disease) stage 3, GFR 30-59 ml/min COPD (chronic obstructive pulmonary disease) not well controlled per pt > worse this time of year with humidity DM type 2 (diabetes mellitus, type 2) NIDDM H/O pulmonary emphysema History of arthritis History of cardioversion 2009> SVT History of heart attack pt unaware of this History of nicotine dependence Hyperlipidemia Hypertension Hypomagnesemia Iron deficiency anemia due to chronic blood loss Multiple pulmonary nodules determined by computed tomography of lung On home oxygen therapy 3 LPM continuous WENDY (obstructive sleep apnea) no cpap > O2 continuous Peripheral neuropathy Pneumonia Apr 2019 Pulmonary air trapping Pulmonary air trapping Renal cyst just monitoring Renal cyst SVT (supraventricular tachycardia) dx 2009> diltiazem for this > controlled Surgical History History of bone marrow biopsy July 2019 > checking due to anemia History of cardiac cath 2009 > no stents History of colonoscopy History of esophagogastroduodenoscopy (EGD) History of nasal surgery Status post cataract extraction of both eyes with insertion of intraocular lens [place] teeth extracted Family History Father Diabetes Mother Diabetes Hypertension Other Brain tumor Depression Stroke Social History Smoking Status: Former smoker Tobacco Type: Cigarettes Age Started Using Tobacco: 20; packs per day: 1.0; Second Hand Exposure: No; Do You Dip or Chew Tobacco: No; Hx Alcohol Use: No Hx Substance Use: No Preferred Language: Croatian Communication Ability: Effective Adult Education Manager Required: No Beliefs That Will Affect Care: None Current Living Situation: Alone Other Information That Helps Us Care for You: No Feels Safe at Home: Yes Safety Concerns: Feels Safe At This Time Assistive Devices: Glasses and Oxygen - Continuous Review of Systems 2 Review of Systems: All systems reviewed & are unremarkable except as noted in HPI & below Physical Exam Constitutional: WD/WN, vitals as above Eyes: + anicteric sclerae; normal pupil size ENMT: external ear and nose normal, oropharynx normal Respiratory: normal respiratory effort, lungs clear to auscultation Cardiovascular: RRR, no murmur, no edema Gastrointestinal (Abdomen): Inspection/Auscultation: abdomen normal to inspection; abdomen not distended Percussion/Palpation: + abdomen tender (Ep igastric) and abdomen soft; no guarding and abdomen not rigid Musculoskeletal: no cyanosis or clubbing, extremities motor strength 5/5 Skin: no rashes, warm and dry (No cellulitis) Neurologic: moves all extremities and awake; not confused Psychiatric: A+Ox3, euthymic affect Results & Data Results & Data ([facility]) Vital Signs (Past 12 Hours) Vital Signs Temp Pulse Pulse Resp BP BP Pulse Ox 05/13/22 17:46 114 H 153/70 H 93 05/13/22 16:43 112 H 140/63 94 05/13/22 15:27 118 H 145/60 H 93 05/13/22 14:30 121 H 26 H 132/56 L 96 05/13/22 14:00 118 H 31 H 147/100 H 96 05/13/22 13:36 05/13/22 13:36 114 H 19 93 05/13/22 13:30 116 H 28 H 169/127 H 91 05/13/22 13:00 120 H 28 H 91 05/13/22 13:00 92 05/13/22 13:02 05/13/22 12:16 37.3 C 110 H 24 173/66 H 94 O2 Del Method O2 Flow Rate 05/13/22 17:46 Nasal Cannula 3 05/13/22 16:43 Nasal Cannula 3 05/13/22 15:27 Nasal Cannula 3 05/13/22 14:30 Nasal Cannula 3 05/13/22 14:00 Room Air 05/13/22 13:36 Room Air 05/13/22 13:36 Nasal Cannula 3 05/13/22 13:30 Nasal Cannula 3 05/13/22 13:00 Nasal Cannula 3 05/13/22 13:00 Nasal Cannula 3 05/13/22 13:02 Nasal Cannula 2 05/13/22 12:16 Nasal Cannula 3 Laboratory Results Abnormal lab results 05/13/22 05/13/22 05/13/22 Range/Units 13:06 13:06 13:06 WBC 4.28 L (4.8-10.8) K/ul RBC 3.93 L (4.70-6.10) M/uL Hgb 10.9 L (14.0-18.0) g/dl Hct 34.2 L (42.0-52.0) % MCHC 31.9 L (32.0-36.0) g/dL RDW Std Deviation 50.3 H (36.4-46.3) fL RDW Coeff of Arnoldo 15.8 H (11.5-14.5) % Lymph # (Auto) 0.23 L (1.2-3.4) K/uL [place] # (Auto) 0.02 L (0.11-0.59) K/uL BUN 40 H (6-23) mg/dl Creatinine 1.80 H (0.6-1.4) mg/dl BUN/Creatinine Ratio 22.2 H (10-20) Glucose 168 H (70-99(Fasting)) mg/dl Lactate 2.7 H* (0.4-2.0) mmol/L Total Bilirubin 1.9 H (0.2-1.0) mg/dl Direct Bilirubin 1.1 H (0-0.2) mg/dl AST 385 H (13-39) U/L ALT 244 H (7-52) U/L Alkaline Phosphatase 123 H (34-104) U/L Procalcitonin (0-0.5) ng/ml 05/13/22 Range/Units 13:06 WBC (4.8-10.8) K/ul RBC (4.70-6.10) M/uL Hgb (14.0-18.0) g/dl Hct (42.0-52.0) % MCHC (32.0-36.0) g/dL RDW Std Deviation (36.4-46.3) fL RDW Coeff of Arnoldo (11.5-14.5) % Lymph # (Auto) (1.2-3.4) K/uL [place] # (Auto) (0.11-0.59) K/uL BUN (6-23) mg/dl Creatinine (0.6-1.4) mg/dl BUN/Creatinine Ratio (10-20) Glucose (70-99(Fasting)) mg/dl Lactate (0.4-2.0) mmol/L Total Bilirubin (0.2-1.0) mg/dl Direct Bilirubin (0-0.2) mg/dl AST (13-39) U/L ALT (7-52) U/L Alkaline Phosphatase (34-104) U/L Procalcitonin 1.38 H (0-0.5) ng/ml Diagnostic Findings SINGLE VIEW CHEST CLINICAL HISTORY: Sepsis. FINDINGS: An AP, portable, upright chest radiograph is compared to study dated 05/08/2022 and correlated with chest CT dated 03/29/2022. The examination is degraded by portable technique and apical lordotic positioning. The heart is mildly enlarged noting atherosclerotic calcification of the thoracic aorta. The pulmonary vasculature is noncongested. Enlargement of the central pulmonary vessels suggest pulmonary artery hypertension. Advanced emphysema and chronic interstitial thickening is similar to previous. Scarring/atelectasis is noted at both lung bases. No superimposed airspace consolidation or large pleural effusion is identified. No pneumothorax is seen. The skeletal structures are osteopenic. The bony thorax is grossly intact. IMPRESSION: Cardiomegaly and advanced emphysema with no acute cardiopulmonary abnormality identified. ABDOMEN AND PELVIS CT WITHOUT CONTRAST CT DOSE: 869.34 mGycm HISTORY: epigastric pain TECHNIQUE: Multiaxial CT images of the abdomen and pelvis were performed without contrast. A dose lowering technique was utilized adhering to the principles of ALARA. COMPARISON STUDY: Abdomen and pelvis CT 07/27/2020. FINDINGS: Mild motion artifact. Small patchy densities within the lung bases posteriorly favor mild dependent change. Old mild compression deformities at L1 and L2 are stable. There is an old right posterior 11th rib fracture. No acute rib fractures identified. Trace pericardial effusion is noted. The unenhanced liver, spleen, adrenal glands, and pancreas are unremarkable. The gallbladder is mildly distended. No gallbladder wall thickening. Mild to moderate bilateral perinephric edema, unchanged. Stable bilateral renal hypodense and hyperdense lesions. These are incompletely characters on this noncontrast study but favor cysts. The dominant 6.2 cm hyperdense lesion within the lower pole the right kidney continues to exert mass effect along the right renal pelvis and likely accounts for the moderate right hydronephrosis. This is similar to the prior study. No renal or ureteral stones identified. No left-sided hydronephrosis. Multiple prominent periportal and retroperitoneal lymph nodes remain stable. Calcified plaque within the normal caliber abdominal aorta. The bladder is unremarkable. The prostate gland is mildly enlarged. Suboptimal evaluation for bowel pathology due to the lack of intravenous and oral contrast. However, there is no definite bowel wall thickening or obstruction. Normal appendix. Moderate well-formed stool within the rectum. IMPRESSION: 1. Moderate hydronephrosis likely secondary to a 6.2 cm right renal cyst which exerts mass effect on the right renal pelvis. This is similar to the prior study. 2. No left-sided hydronephrosis. 3. No definite bowel wall thickening or obstruction. 4. Normal appendix. 5. Mildly distended gallbladder. However, no gallbladder wall thickening. 6. Additional findings as described above. ABDOMINAL ULTRASOUND, RIGHT UPPER QUADRANT HISTORY: elevated LFTs. GB Liver eval. COMPARISON: CT of the abdomen and pelvis May 13, 2022. FINDINGS: No hepatic lesions are identified. There is no biliary ductal dilatation. The common bile duct measures 6 mm in caliber. Pancreatic body is normal. Head and tail are partially obscured. The gallbladder is moderately distended. The wall is mildly thickened. There is no pericholecystic fluid. No gallstones are identified. No sonographic Farmer sign was elicited. A cyst within the right renal pelvis is again noted. This measures 5.4 x 5.2 x 4.9 cm. Right hydronephrosis is present. IMPRESSION: 1. No gallstones or biliary ductal dilatation. 2. Moderately distended gallbladder with mild gallbladder wall thickening. However, no sonographic Farmer sign. No convincing evidence for acute cholecystitis. If indicated, a hepatobiliary scan could be obtained. 3. Right renal cyst with moderate hydronephrosis, as shown on CT. Medications Administered ER medications given: Normal saline 500 mL bolus DuoNeb 12 mL neb Cefepime 2 g IV Vancomycin 1500 mg IV Normal saline 1 L bolus Metronidazole 500 mg IV ECG Indication: abdominal pain Rate (beats per minute): 121 Rhythm: sinus tachycardia Additional Comments: Significant artifact present Code Status & VTE Plan Code Status Full VTE Prophylaxis Plan VTE Prophylaxis will be ordered: Yes PG Care Time/CCT Total # of Minutes Spent Total Time Spent with Patient: Total time spent is greater than 50% in coordination of care (as documented) at patient's floor/unit and/or counseling patient: Coding Level of Care Code 05051 INT INP/OBS CARE MIN Diagnoses Elevated LFTs R79.89 SVT (supraventricular tachycardia) I47.1 Chronic respiratory failure with hypoxia J96.11 Severe chronic obstructive pulmonary disease J44.9 DM type 2 (diabetes mellitus, type 2) E11.9 Diabetes mellitus complication status: without complication Diabetes mellitus store stock help insulin use: without store stock help use Coronary artery disease I25.10 Associated angina: without angina Coronary Disease-Associated Artery/Lesion type: [place] artery [place] vs. transplanted heart: [place] heart Anemia D64.9 Anemia type: unspecified type Hypertension I10 Hypertension type: essential hypertension WENDY (obstructive sleep apnea) G47.33 (1) DM type 2 (diabetes mellitus, type 2) Diabetes mellitus complication status: without complication Diabetes mellitus store stock help insulin use: without store stock help use Qualified Code(s): E11.9 - Type 2 diabetes mellitus without complications (2) Coronary artery disease Associated angina: without angina Coronary Disease-Associated Artery/Lesion type: [place] artery [place] vs. transplanted heart: [place] heart Qualified Code(s): I25.10 - Atherosclerotic heart disease of [place] coronary artery without angina pectoris (3) Anemia Anemia type: unspecified type Qualified Code(s): D64.9 - Anemia, unspecified (4) Hypertension Hypertension type: essential hypertension Qualified Code(s): I10 - Essential (primary) hypertension
[2022-05-13 18:37] LABS: Appearance Urine Clear (Clear); Bacteria Urine Automated Negative (Negative); Bilirubin Urine Negative (Negative); Blood Urine Negative (Negative); Color Urine Yellow; Glucose Urine UA 3+ (Negative); Ketones Urine Negative (Negative); Leukocyte Esterase Urine Negative (Negative); Nitrite Urine Negative (Negative); Protein Urine 1+ (Negative); RBC Urine Automated 0-4 /hpf (0-4); Specific Gravity Urine 1.015 (1.000-1.030); Urobilinogen Urine Negative (Negative)
[2022-05-13] MEDS ORDERED: ACETAMINOPHEN 325 MG TAB PO PRN (21:04)
[2022-05-13] MEDS ORDERED: cefTRIAXone SODIUM 2,000 MG in DEXTROSE 5% 50 ML IV SCH (21:30)
[2022-05-13] MEDS: BUDESONIDE 0.5 MG/2 ML VIAL (PULMICORT) INH SCH (21:48)
[2022-05-13] MEDS: PANTOprazole 40 MG in SYRINGE 0 ML IV SCH (21:50)
[2022-05-13] MEDS: dilTIAZem HCL 240 MG CAPCR PO SCH (21:50)
[2022-05-13] MEDS ORDERED: GLUCOSE 10 TAB/TUBE PO PRN (21:51)
[2022-05-13] MEDS ORDERED: GLUCOSE 40% GEL 15 GM TUBE PO PRN (21:51)
[2022-05-13] MEDS: ENOXAPARIN INJ 40 MG/0.4 ML SYR SQ SCH (21:51)
[2022-05-13] MEDS ORDERED: GLUCAGON FOR INJ 1 MG VIAL SQ PRN (21:51)
[2022-05-13] MEDS ORDERED: CARBOHYDRATES FOR HYPOGLYCEMIA PO PRN (21:51)
[2022-05-13] MEDS ORDERED: DEXTROSE 50% 50 ML SYRINGE IV PRN (21:51)
[2022-05-13] MEDS: LACTATED RINGER'S 1,000 ML IV SCH (21:55)
[2022-05-13] MEDS ORDERED: PHARMACY GLYCEMIC MGMT CONSULT PRN (22:42)
[2022-05-13] MEDS: INSULIN ASPART PER UNIT SC SCH (23:04)
[2022-05-13] MEDS: metroNIDAZOLE 500 MG/100 ML BAG IV SCH (23:24)
[2022-05-14] MEDS: INSULIN ASPART PER UNIT SC SCH ×4 (06:05→23:35)
[2022-05-14 06:17] LABS: A calco-baum cmplx NotReported Not Detected (NotDetected); Bact fragilis Not Reported Not Detected (NotDetected); C auris Not Reported Not Detected (NotDetected); CTX-M Resistant Gene DETECTED (NotDetected); Calbicans Not Reported Not Detected (NotDetected); Candida glabrata Not Reported Not Detected (NotDetected); Candida krusei Not Reported Not Detected (NotDetected); Cneoformans/gatti Not Reported Not Detected (NotDetected); Cparapsilosis Not Reported Not Detected (NotDetected); Ctropicalis Not Reported Not Detected (NotDetected); E cloacae compx Not Reported Not Detected (NotDetected); Efaecalis Not Reported Not Detected (NotDetected); Efaecium Not Reported Not Detected (NotDetected); Enterobacterales DETECTED (NotDetected); Enterobacterales Not Reported DETECTED (NotDetected); H influenzae Not Reported Not Detected (NotDetected); IMP Resistant Gene Not Detected (NotDetected); K aerogenes Not Reported Not Detected (NotDetected); KPC Resistant Gene Not Detected (NotDetected); Koxytoca Not Reported Not Detected (NotDetected); Kpneumoniae grp Not Reported Not Detected (NotDetected); Lmonocyt Not Reported Not Detected (NotDetected); N meningitidis Not Reported Not Detected (NotDetected); NDM Resistant Gene Not Detected (NotDetected); OXA 48 Like Resistant Gene Not Detected (NotDetected); P aeruginosa Not Reported Not Detected (NotDetected); Proteus spp Not Reported Not Detected (NotDetected); Salmonella spp Not Reported Not Detected (NotDetected); Smarcescens Not Reported Not Detected (NotDetected); Staph lugdunensis Not Reported Not Detected (NotDetected); Staph spp. Not Reported Not Detected (NotDetected); Staphaureus Not Reported Not Detected (NotDetected); Staphepi Not Reported Not Detected (NotDetected); Stenmaltophilia Not Reported Not Detected (NotDetected); Strep agal(GrpB) Not Reported Not Detected (NotDetected); Strep pneum Not Reported Not Detected (NotDetected); Strep pyog (GrpA) Not Reported Not Detected (NotDetected); Strep spp Not Reported Not Detected (NotDetected); VIM Resistant Gene Not Detected (NotDetected); mcr-1 Colistin Resistant Gene Not Detected (NotDetected)
[2022-05-14 06:40] LABS: Escherichia coli Not Reported DETECTED (NotDetected)
[2022-05-14] MEDS: BUDESONIDE 0.5 MG/2 ML VIAL (PULMICORT) INH SCH ×2 (07:02→19:11)
[2022-05-14] MEDS: FORMOTEROL 20 MCG/2 ML VIAL INH SCH ×2 (07:02→19:12)
[2022-05-14] MEDS: LACTATED RINGER'S 1,000 ML IV SCH ×4 (07:21→23:50)
--- NOTE | 2022-05-14 07:29 | Gastrointestinal Consultation ---
Date of Consultation May 14, 2022 Assessment & Plan (1) Elevated LFTs: He has a mixed picture at this time of elevated LFTs which could go along with systemic illness, but no evidence of any biliary obstruction. However he does have evidence of gram-negative bacilli in his blood without a clear source. MRI on my read does not show evidence of biliary obstruction, does show distended gallbladder, for fortunately at this time he is pain-free and he is hemodynamically stable. Will await results of this morning's LFTs as well as formal read on the MRCP. If has evidence of continued obstruction either biochemically or radiographically then will discuss need for ERCP and the timing of that. Agree with general surgery consultation, agree with continued IV antibiotics and respiratory support. He is a high risk anesthesia candidate based upon his comorbidities Call with any questions. History of Present Illness Reason for Consultation: Elevated LFTs Attending Physician: Diaz Echevarria MD History of Present Illness This is a 77-year-old gentleman with below past medical history but significant for chronic lung disease who presented to the hospital with insidious and an acute onset pleuritic type chest pain as well as epigastric and right upper quadrant pain. This was associated with nausea as well as vomiting. Denies any fevers or chills. Does have chronic lung disease and states that his pain was worse with pursed lip breathing. Symptoms started at 6:30 in the morning yesterday, was recently in the ER for SVT. Evaluation in the ER included evidence of a mildly elevated bilirubin 1.9 AST of 380 ALT of 240 with a mildly elevated alkaline phosphatase of 120. CT scan as well as right upper quadrant ultrasound showed a distended gallbladder but did not show any evidence of intra or extrahepatic biliary ductal dilatation. Overnight is been given antibiotics, nebulizer treatments, he is down to his baseline 3 L of oxygen. His blood cultures did return for gram-negative bacilli. Other complicating factors is that he has hydronephrosis with mass effect on his right kidney as well as BPH giving a possibility of as the etiology of his Allergies Allergy/AdvReac Type Severity Reaction Status Date / Time ALYSSA Inhibitors Allergy Severe ANAPHYLAXIS Verified 05/09/22 13:02 Home Medications Medication Instructions Recorded Confirmed Type albuterol sulfate 90 mcg/actuation 2 puff inhalation Q4 PRN Wheezing 12/14/17 05/13/22 History aerosol inhaler atorvastatin 20 mg tablet 20 mg PO HS 12/14/17 05/13/22 History metformin 1,000 mg tablet 1,000 mg PO BID 12/14/17 05/13/22 History nitroglycerin 0.4 mg sublingual 0.4 mg sublingual DIRECTED PRN 12/14/17 05/13/22 History tablet Chest Pain Oxygen Home #1 ea 11/13/18 05/09/22 History aspirin 81 mg tablet,delayed 81 mg PO Q OTHER DAY 11/27/18 05/13/22 History release ascorbic acid (vitamin C) 1,000 mg 1 gm PO QAM 06/05/19 05/13/22 History tablet tiotropium bromide 2.5 2 puff inhalation QAM 10/16/20 05/13/22 History mcg/actuation mist for inhalation (Spiriva Respimat) hydrochlorothiazide 25 mg tablet 25 mg PO BID 07/07/21 05/13/22 History pantoprazole 20 mg tablet,delayed 10 mg PO DAILY 07/07/21 05/13/22 History release furosemide 20 mg tablet 20 mg PO .COMPLEX #270 tabs 07/08/21 05/13/22 Rx ferrous sulfate 325 mg (65 mg 325 mg PO Q OTHER DAY 08/11/21 05/13/22 History iron) tablet (Feosol) mecobalamin (vitamin B12) 1,000 1,000 mcg PO DAILY 10/30/21 05/13/22 History mcg chewable tablet sodium zirconium cyclosilicate 5 5 g PO Q OTHER DAY #30 ea 11/02/21 05/13/22 Rx gram oral powder packet ([facility]) diltiazem HCl 240 mg 240 mg PO BID 12/20/21 05/13/22 History capsule,extended release 24 hr magnesium oxide 500 mg capsule 400 mg PO BID 12/27/21 05/13/22 History Portable Oxygen #1 ea 02/17/22 05/09/22 Rx budesonide 0.5 mg/2 mL suspension 0.25 mg inhalation BID #60 mL 02/17/22 05/13/22 Rx for nebulization arformoterol 15 mcg/2 mL solution 2 ml inhalation BID #120 mL 05/13/22 05/13/22 Rx for nebulization dapagliflozin 10 mg tablet 10 mg PO QAM 05/13/22 05/13/22 History (Farxiga) semaglutide 14 mg tablet (Rybelsus) 14 mg PO QAM 05/13/22 05/13/22 History Patient History Medical History Abnormal CT scan, chest BPH with obstruction/lower urinary tract symptoms CAD (coronary artery disease) CKD (chronic kidney disease) stage 3, GFR 30-59 ml/min COPD (chronic obstructive pulmonary disease) not well controlled per pt > worse this time of year with humidity DM type 2 (diabetes mellitus, type 2) NIDDM H/O pulmonary emphysema History of arthritis History of cardioversion 2009> SVT History of heart attack pt unaware of this History of nicotine dependence Hyperlipidemia Hypertension Hypomagnesemia Iron deficiency anemia due to chronic blood loss Multiple pulmonary nodules determined by computed tomography of lung On home oxygen therapy 3 LPM continuous WENDY (obstructive sleep apnea) no cpap > O2 continuous Peripheral neuropathy Pneumonia Apr 2019 Pulmonary air trapping Pulmonary air trapping Renal cyst just monitoring Renal cyst SVT (supraventricular tachycardia) dx 2009> diltiazem for this > controlled Surgical History History of bone marrow biopsy July 2019 > checking due to anemia History of cardiac cath 2009 > no stents History of colonoscopy History of esophagogastroduodenoscopy (EGD) History of nasal surgery Status post cataract extraction of both eyes with insertion of intraocular lens [place] teeth extracted Family History Father Diabetes Mother Diabetes Hypertension Other Brain tumor Depression Stroke Social History Smoking Status: Former smoker Tobacco Type: Cigarettes Age Started Using Tobacco: 20; packs per day: 1.0; Second Hand Exposure: No; Do You Dip or Chew Tobacco: No; Hx Alcohol Use: No Hx Substance Use: No Preferred Language: Tam[place] Communication Ability: Effective Professional Wrestler Required: No Beliefs That Will Affect Care: None Current Living Situation: Alone Other Information That Helps Us Care for You: No Feels Safe at Home: Yes Safety Concerns: Feels Safe At This Time Assistive Devices: Glasses and Oxygen - Continuous Review of Systems Review of Systems: 10 system per HPI otherwise negative Physical Exam Physical Exam: Awake alert [place] x3 Patient is taking a nebulizer treatment very conversant Denies any abdominal pain Lungs are diminished with bilateral crackles Abdomen is soft nontender nondistended 2+ peripheral edema Results & Data ([facility]) Vital Signs (Past 12 Hours) Vital Signs Temp Pulse Pulse Resp BP BP Pulse Ox 05/14/22 07:04 87 18 94 05/13/22 23:02 100 H 05/14/22 02:44 36.6 C 107 H 16 118/62 92 05/13/22 22:44 36.7 C 105 H 17 148/70 H 92 05/13/22 21:04 113 H 05/13/22 21:04 05/13/22 21:04 37.0 C 115 H 18 128/66 93 05/13/22 20:00 107 H 25 H 95 05/13/22 20:00 154/65 H 05/13/22 19:30 108 H 23 94 O2 Del Method O2 Flow Rate 05/14/22 07:04 Nasal Cannula 3 05/13/22 23:02 05/14/22 02:44 Nasal Cannula 3 05/13/22 22:44 Nasal Cannula 3 05/13/22 21:04 05/13/22 21:04 Nasal Cannula 3 05/13/22 21:04 Nasal Cannula 3 05/13/22 20:00 Room Air 05/13/22 20:00 05/13/22 19:30 Room Air
[2022-05-14] MEDS ORDERED: INSULIN ASPART PER UNIT SC SCH (07:30)
[2022-05-14] MEDS: metroNIDAZOLE 500 MG/100 ML BAG IV SCH (07:36)
[2022-05-14] MEDS: dilTIAZem HCL 240 MG CAPCR PO SCH ×2 (07:36→20:39)
[2022-05-14] MEDS: UMECLIDINIUM BROMIDE 62.5MCG/BLISTER 7 PUFFS/INHALER INH SCH (07:36)
--- NOTE | 2022-05-14 08:23 | Magnetic Resonance Report ---
MRCP CLINICAL HISTORY: Elevated LFTs, abdominal pain TECHNIQUE: Utilizing a 1.5 Alexia magnet and dedicated coil, multiplanar, multiecho imaging of the [facility] abdomen was performed utilizing heavily T2 weighted pulsing sequences without IV contrast. COMPARISON STUDY: CT of the abdomen and pelvis and right upper quadrant ultrasound May 13, 2022 . FINDINGS: There is no intra or extrahepatic biliary ductal dilatation. The common bile duct measures 5 mm in caliber. No common bile duct calculi are identified. Course and caliber of the main pancreati c duct is normal. No definite peripancreatic fluid. No peripancreatic fluid collections are present. Pancreatic glandular atrophy. No hepatic lesions are identified on unenhanced exam. The gallbladder i s mildly distended. There is mild gallbladder wall thickening. No gallstones are identified. Unenhanc ed images of the spleen and adrenal glands are unremarkable. A few suspected left renal cysts measure up to 1.8 cm. There is a 5.6 cm right parapelvic cysts. Moderate right hydronephrosis is noted, concepción lar to prior CT. There is no left hydronephrosis. Prominent retroperitoneal lymph nodes are similar t o CT of July 27, 2020. Caliber of visualized small and large bowel are normal. IMPRESSION: 1. No biliary ductal dilatation. No common bile duct calculi. 2. Mild gallbladder distention. Mild gallbladder wall thickening. No gallstones identified. If indic ated, a hepatobiliary scan could be obtained. 3. No change in moderate right hydronephrosis likely secondary to a right parapelvic cyst which exert s mass effect upon the right renal pelvis. ACT 112: Negative or not required by law. Electronically signed by: Seth Sandy M.D. 05/14/2022 8:21 AM
[2022-05-14 08:46] LABS: Hematocrit (blood only) 30.5 % (42.0-52.0); Hemoglobin 9.8 g/dl (14.0-18.0); Mean Corpuscular Hemoglobin 27.9 pg (25.0-34.0); Mean Corpuscular Hgb Conc 32.1 g/dL (32.0-36.0); Mean Corpuscular Volume 86.9 fL (80.0-100.0); Mean Platelet Volume 10.5 fL (9.4-12.4); Platelet Count 153 K/uL (130-400); RDW Coefficient of Variation 16.2 % (11.5-14.5); RDW Standard Deviation 51.2 fL (36.4-46.3); Red Blood Count 3.51 M/uL (4.70-6.10); White Blood Count 23.34 K/ul (4.8-10.8)
[2022-05-14 08:49] LABS: Albumin Level 3.4 gm/dl (3.4-5.0); Bilirubin,Total 2.4 mg/dl (0.2-1.0); Calcium 8.2 mg/dl (8.5-10.1); Potassium 4.7 mmol/L (3.5-5.1)
[2022-05-14 09:29] LABS: Basophils # (auto) 0.04 K/uL (0-0.2); Basophils % (auto) 0.2 %; Eosinophils # (auto) 0.01 K/uL (0-0.50); Immature Granulocytes # (auto) 0.38 K/uL (0.01-0.20); Immature Granulocytes % (auto) 1.6 %; Lymphocytes # (auto) 0.73 K/uL (1.2-3.4); Lymphocytes % (auto) 3.1 %; Monocytes # (auto) 1.21 K/uL (0.11-0.59); Monocytes % (auto) 5.2 %; Neutrophils # (auto) 20.97 K/uL (1.40-6.50); Neutrophils % (auto) 89.9 %
[2022-05-14 09:42] LABS: Albumin Globulin Ratio 1.3 (0.9-2); BUN Creatinine Ratio 27.4 (10-20); Creatinine Clr Calc Pharmacy 45.4 ml/min; Est GFR (African American) 49.2 ml/min; Est GFR (Non-African American) 42.5 ml/min; Globulin 2.7 gm/dl (2.5-4.0); Total Protein 6.1 gm/dl (6.0-8.3)
[2022-05-14] MEDS: ERTAPENEM SODIUM 1,000 MG in SYRINGE 0 ML IV SCH (09:46)
[2022-05-14] MEDS: PANTOprazole 40 MG in SYRINGE 0 ML IV SCH (10:22)
--- NOTE | 2022-05-14 11:36 | Hospitalist Progress Note ---
Date of Service May 14, 2022 Assessment & Plan (1) Elevated LFTs: Plan: Uncertain etiology. No definite evidence of acute cholecystitis. Appreciate gastroenterology consultation and recommendations. Serial labs. No obstruction or acute cholecystitis seen on MRCP. (2) SVT (supraventricular tachycardia): Plan: Currently stable. Continue diltiazem 240 mg p.o. twice daily (3) Chronic respiratory failure with hypoxia: Plan: Currently stable. Baseline 3 L/min O2 (4) Severe chronic obstructive pulmonary disease: Plan: Currently stable. Continue Spiriva Respimat, Perforomist and budesonide nebulizers twice daily (5) DM type 2 (diabetes mellitus, type 2): Plan: HbA1c 7.7 in February. Hold home meds of Farxiga and metformin. Sliding scale coverage as needed (6) Coronary artery disease: Plan: Aspirin was held on admission but will be restarted since there does not appear any indication for urgent surgical intervention. Hold atorvastatin while n.p.o. Not on beta-sawyer chronically (7) Anemia: Plan: Appears to be at baseline. No overt bleeding. Serial labs (8) Hypertension: Plan: Diuretics currently on hold. Continue diltiazem (9) WENDY (obstructive sleep apnea): Plan: Stable. Patient intolerant to CPAP (10) Bacteremia: Plan: Gram-negative's isolated. Antibiotics switched to intravenous ertapenem, day 1. Will tailor antibiotics according to culture results and sensitivities Plan VTE prophylaxis - Lovenox 40 mg subcu daily . Disposition -anticipate eventual discharge back to home Admission and Anticipated Discharge Date Admission Date: May 13, 2022 Subjective Alert and oriented. No distress. GI consultation noted. Surgery consultation pending. Blood cultures positive for gram-negative bacilli. Antibiotics have been changed over to ertapenem. MRCP is negative for obstruction. No obvious source of infection Review of Systems Review of Systems: Constitutional-no fever or chills ENT-no blurred vision, no double vision, no epistaxis, no sore throat Respiratory-no cough, no wheezing, no shortness of breath Cardiac-no palpitations, no chest pain, no syncope GI-no nausea, vomiting, diarrhea, melena, hematochezia -no urinary retention, no urinary incontinence, no dysuria, no hematuria Musculoskeletal-no joint pain, no muscle tenderness Skin-no bruising, no rashes, no pruritus Neuro-no isolated weakness, no paresthesia, no weakness Psych-no depression, no anxiety Physical Exam Physical Exam: General-alert and oriented x3, no fevers, no chills HEENT-head atraumatic and normocephalic, pupils equal and reactive to light, extraocular muscles intact Neck-no lymphadenopathy or thyromegaly, trachea midline Chest-clear to auscultation percussion. No rales wheezing or rhonchi Cardiac-regular rate and rhythm, normal S1 and S2 Abdomen-normal bowel sounds, nontender, no hepatosplenomegaly Extremities-no cyanosis, clubbing, or edema Neuro-cranial nerves II through XII intact, motor and sensory function within normal limits, strength symmetrical , no focal deficits Psych-normal affect, normal mood Results & Data Results & Data ([facility]) Vital Signs (Past 12 Hours) Vital Signs Temp Pulse Pulse Pulse Resp BP BP 05/14/22 09:00 89 05/14/22 08:00 36.8 C 86 18 133/63 05/14/22 07:04 87 18 05/14/22 02:44 36.6 C 107 H 16 118/62 Pulse Ox O2 Del Method O2 Flow Rate 05/14/22 09:00 05/14/22 08:00 96 Nasal Cannula 3 05/14/22 07:04 94 Nasal Cannula 3 05/14/22 02:44 92 Nasal Cannula 3 Laboratory Results 05/14/22 08:00 05/14/22 08:00 PG Care Time/CCT Total # of Minutes Spent Total Time Spent with Patient: Total time spent is greater than 50% in coordination of care (as documented) at patient's floor/unit and/or counseling patient: Coding Level of Care Code 49530 SUB INP/OBS CARE 3/50MIN Diagnoses Elevated LFTs R79.89 SVT (supraventricular tachycardia) I47.1 Chronic respiratory failure with hypoxia J96.11 Severe chronic obstructive pulmonary disease J44.9 DM type 2 (diabetes mellitus, type 2) E11.9 Diabetes mellitus buttermaker continuous churn insulin use: without buttermaker continuous churn use Diabetes mellitus complication status: without complication Coronary artery disease I25.10 Coronary Disease-Associated Artery/Lesion type: [place] artery [place] vs. transplanted heart: [place] heart Associated angina: without angina Anemia D64.9 Anemia type: unspecified type Hypertension I10 Hypertension type: essential hypertension WENDY (obstructive sleep apnea) G47.33 Bacteremia R78.81 (1) DM type 2 (diabetes mellitus, type 2) Diabetes mellitus usp insulin use: without usp use Diabetes mellitus complication status: without complication Qualified Code(s): E11.9 - Type 2 diabetes mellitus without complications (2) Coronary artery disease Coronary Disease-Associated Artery/Lesion type: [place] artery [place] vs. transplanted heart: [place] heart Associated angina: without angina Qualified Code(s): I25.10 - Atherosclerotic heart disease of [place] coronary artery without angina pectoris (3) Anemia Anemia type: unspecified type Qualified Code(s): D64.9 - Anemia, unspecified (4) Hypertension Hypertension type: essential hypertension Qualified Code(s): I10 - Essential (primary) hypertension
--- NOTE | 2022-05-14 13:14 | Surgery Consultation ---
Date of Consultation May 14, 2022 Assessment & Plan (1) Elevated LFTs: pt is a 77 year old male who was admitted to hospital for bacteremia, elevated FLT IMP: Cholangitis ? cholecystitis? base on pt's H/P, labs and imaging finding, may need ERCP, continue iv antibiotic, no emergent surgery cholecystectomy now, will F/U, History of Present Illness Reason for Consultation: possible cholecystitis Requesting Physician: Swathi Perales MD Attending Physician: Chencho Ribera MD History of Present Illness Chief Complaint: Abdominal pain and shortness of breath Primary Care Provider: Diaz Thomas MD Kristopher Louie is a 77 year old male with severe COPD, pulmonary hypertension and chronic O2 use who presents to the ER with bilateral upper abdominal pain and shortness of breath. He reports feeling well yesterday with no symptoms. His symptoms started around 6:30 AM this morning with shortness of breath due to bilateral upper quadrant pain with associated nausea and vomiting without hemoptysis. He denies any fever, chills, chest pain, cough, sinus pain, nasal congestion, melena, diarrhea, constipation, bright red blood in stool. Never had a similar sensation previously. He was recently in the emergency room for SVT 5 days ago. He reports no recurrent episodes since then. In the ER he was noted to have elevated LFTs with subsequent ultrasound showing a moderately distended gallbladder with a normal size common bile duct. Reportedly the ER provider discussed with gastroenterology and recommended an MRCP, intravenous antibiotics and n.p.o. after midnight. I ( Joey Medina MD ) got a call for consult possible cholecystitis, I reviewed pt's H/P, labs and U/S , CT scan and MRCP with pt, pt denies abdominal pain, no nausea, no vomiting, Allergies Allergy/AdvReac Type Severity Reaction Status Date / Time ALYSSA Inhibitors Allergy Severe ANAPHYLAXIS Verified 05/09/22 13:02 Home Medications Medication Instructions Recorded Confirmed Type albuterol sulfate 90 mcg/actuation 2 puff inhalation Q4 PRN Wheezing 12/14/17 05/13/22 History aerosol inhaler atorvastatin 20 mg tablet 20 mg PO HS 12/14/17 05/13/22 Histo ry metformin 1,000 mg tablet 1,000 mg PO BID 12/14/17 05/13/22 Histo ry nitroglycerin 0.4 mg sublingual 0.4 mg sublingual DIRECTED PRN 12/14/17 05/13/22 History tablet Chest Pain Oxygen Home #1 ea 11/13/18 05/09/22 History aspirin 81 mg tablet,delayed 81 mg PO Q OTHER DAY 11/27/18 05/13/22 H istory release ascorbic acid (vitamin C) 1,000 mg 1 gm PO QAM 06/05/1905/13 History tablet tiotropium bromide 2.5 2 puff inhalation QAM 10/16/20 05/13/22 Histor y mcg/actuation mist for inhalation (Spiriva Respimat) hydrochlorothiazide 25 mg tablet 25 mg PO BID 07/07/21 3 History pantoprazole 20 mg tablet,delayed 10 mg PO DAILY 07/07/21 History release furosemide 20 mg tablet 20 mg PO .COMPLEX #270 tabs 07/08/21 05/13/22 Rx ferrous sulfate 325 mg (65 mg 325 mg PO Q OTHER DAY 08/11/21 05/13/22 History iron) tablet (Feosol) mecobalamin (vitamin B12) 1,000 1,000 mcg PO DAILY 10/30/21 05/13/22 History mcg chewable tablet sodium zirconium cyclosilicate 5 5 g PO Q OTHER DAY #30 ea 11/02/21 0 05/13/22 Rx gram oral powder packet (Lokelwv) diltiazem HCl 240 mg 240 mg PO BID 12/20/21 05/13/22 History capsule,extended release 24 hr magnesium oxide 500 mg capsule 400 mg PO BID 12/27/21 05/13/22 History Portable Oxygen #1 ea 02/17/22 05/09/22 Rx budesonide 0.5 mg/2 mL suspension 0.25 mg inhalation BID #60 mL 02/17/22 05/13/22 Rx for nebulization arformoterol 15 mcg/2 mL solution 2 ml inhalation BID #120 mL 05/13/22 05/13/22 Rx for nebulization dapagliflozin 10 mg tablet 10 mg PO QAM 05/13/22 05/13/22 Hist ory (Farxiga) semaglutide 14 mg tablet (Rybelsus) 14 mg PO QAM 05/13/2205/04 History Past Med/Surg History Medical History Abnormal CT scan, chest BPH with obstruction/lower urinary tract symptoms CAD (coronary artery disease) CKD (chronic kidney disease) stage 3, GFR 30-59 ml/min COPD (chronic obstructive pulmonary disease) not well controlled per pt > worse this time of year with humidityDM type 2 (diabetes mellitus, type 2) NIDDMH/O pulmonary emphysema History of arthritis History of cardioversion 2009> SVTHistory of heart attack pt unaware of thisHistory of nicotine dependence Hyperlipidemia Hypertension Hypomagnesemia Iron deficiency anemia due to chronic blood loss Multiple pulmonary nodules determined by computed tomography of lung On home oxygen therapy 3 LPM continuousOSA (obstructive sleep apnea) no cpap > O2 continuousPeripheral neuropathy Pneumonia Apr 2019Pulmonary air trapping Pulmonary air trapping Renal cyst just monitoringRenal cyst SVT (supraventricular tachycardia) dx 2009> diltiazem for this > controlled Surgical History History of bone marrow biopsy July 2019 > checking due to anemiaHistory of cardiac cath 2009 > no stentsHistory of colonoscopy History of esophagogastroduodenoscopy (EGD) History of nasal surgery Status post cataract extraction of both eyes with insertion of intraocular lens [place] teeth extracted Family History Father DiabetesMother Diabetes HypertensionOther Brain tumor Depression Stroke Social History Smoking Status: Former smoker Tobacco Type: Cigarettes Age Started Using Tobacco: 20; packs per day: 1.0; Second Hand Exposure: No; Do You Dip or Chew Tobacco: No; Hx Alcohol Use: No Hx Substance Use: No Preferred Language: [place] Island[place] Communication Ability: Effective Knot Tying Operator Required: No Beliefs That Will Affect Care: None Current Living Situation: Alone Other Information That Helps Us Care for You: No Feels Safe at Home: Yes Safety Concerns: Feels Safe At This Time Assistive Devices: Glasses and Oxygen - Continuous Review of Systems Review of Systems: All systems reviewed & are unremarkable except as noted in HPI & below Allergies Allergy/AdvReac Type Severity Reaction Status Date / Time ALYSSA Inhibitors Allergy Severe ANAPHYLAXIS Verified 05/09/22 13:02 Home Medications Medication Instructions Recorded Confirmed Type albuterol sulfate 90 mcg/actuation 2 puff inhalation Q4 PRN Wheezing 12/14/17 05/13/22 History aerosol inhaler atorvastatin 20 mg tablet 20 mg PO HS 12/14/17 05/13/22 History metformin 1,000 mg tablet 1,000 mg PO BID 12/14/17 05/13/22 History nitroglycerin 0.4 mg sublingual 0.4 mg sublingual DIRECTED PRN 12/14/17 05/13/22 History tablet Chest Pain Oxygen Home #1 ea 11/13/18 05/09/22 History aspirin 81 mg tablet,delayed 81 mg PO Q OTHER DAY 11/27/18 05/13/22 History release ascorbic acid (vitamin C) 1,000 mg 1 gm PO QAM 06/05/19 05/13/22 History tablet tiotropium bromide 2.5 2 puff inhalation QAM 10/16/20 05/13/22 History mcg/actuation mist for inhalation (Spiriva Respimat) hydrochlorothiazide 25 mg tablet 25 mg PO BID 07/07/21 05/13/22 History pantoprazole 20 mg tablet,delayed 10 mg PO DAILY 07/07/21 05/13/22 History release furosemide 20 mg tablet 20 mg PO .COMPLEX #270 tabs 07/08/21 05/13/22 Rx ferrous sulfate 325 mg (65 mg 325 mg PO Q OTHER DAY 08/11/21 05/13/22 History iron) tablet (Feosol) mecobalamin (vitamin B12) 1,000 1,000 mcg PO DAILY 10/30/21 05/13/22 History mcg chewable tablet sodium zirconium cyclosilicate 5 5 g PO Q OTHER DAY #30 ea 11/02/21 05/13/22 Rx gram oral powder packet (Lokelma) diltiazem HCl 240 mg 240 mg PO BID 12/20/21 05/13/22 History capsule,extended release 24 hr magnesium oxide 500 mg capsule 400 mg PO BID 12/27/21 05/13/22 History Portable Oxygen #1 ea 02/17/22 05/09/22 Rx budesonide 0.5 mg/2 mL suspension 0.25 mg inhalation BID #60 mL 02/17/22 05/13/22 Rx for nebulization arformoterol 15 mcg/2 mL solution 2 ml inhalation BID #120 mL 05/13/22 05/13/22 Rx for nebulization dapagliflozin 10 mg tablet 10 mg PO QAM 05/13/22 05/13/22 History ([facility]) semaglutide 14 mg tablet (Rybelsus) 14 mg PO QAM 05/13/22 05/13/22 History Patient History Medical History Abnormal CT scan, chest BPH with obstruction/lower urinary tract symptoms CAD (coronary artery disease) CKD (chronic kidney disease) stage 3, GFR 30-59 ml/min COPD (chronic obstructive pulmonary disease) not well controlled per pt > worse this time of year with humidity DM type 2 (diabetes mellitus, type 2) NIDDM H/O pulmonary emphysema History of arthritis History of cardioversion 2009> SVT History of heart attack pt unaware of this History of nicotine dependence Hyperlipidemia Hypertension Hypomagnesemia Iron deficiency anemia due to chronic blood loss Multiple pulmonary nodules determined by computed tomography of lung On home oxygen therapy 3 LPM continuous WENDY (obstructive sleep apnea) no cpap > O2 continuous Peripheral neuropathy Pneumonia Apr 2019 Pulmonary air trapping Pulmonary air trapping Renal cyst just monitoring Renal cyst SVT (supraventricular tachycardia) dx 2009> diltiazem for this > controlled Surgical History History of bone marrow biopsy July 2019 > checking due to anemia History of cardiac cath 2009 > no stents History of colonoscopy History of esophagogastroduodenoscopy (EGD) History of nasal surgery Status post cataract extraction of both eyes with insertion of intraocular lens [place] teeth extracted Family History Father Diabetes Mother Diabetes Hypertension Other Brain tumor Depression Stroke Social History Smoking Status: Former smoker Tobacco Type: Cigarettes Age Started Using Tobacco: 20; packs per day: 1.0; Second Hand Exposure: No; Do You Dip or Chew Tobacco: No; Hx Alcohol Use: No Hx Substance Use: No Preferred Language: [place] Communication Ability: Effective Knot Tying Operator Required: No Beliefs That Will Affect Care: None Current Living Situation: Alone Other Information That Helps Us Care for You: No Feels Safe at Home: Yes Safety Concerns: Feels Safe At This Time Assistive Devices: Glasses and Oxygen - Continuous Review of Systems Constitutional: as per Subjective / HPI Eyes: as per Subjective / HPI Respiratory: chronic respiratory failure with hypoxia, pulmonay hypertension, COPD Cardiovascular: Additional Comments: HTN, SVT Gastrointestinal: GI bleeding Genitourinary: + as per Subjective / HPI Musculoskeletal: as per Subjective / HPI Neurologic: as per Subjective / HPI Psychiatric: as per Subjective / HPI Endocrine: as per Subjective / HPI Hematologic / Lymphatic: anemia Physical Exam Constitutional: WD/WN, vitals as above Eyes: PERRL, conjunctivae normal, anicteric sclerae Neck: trachea midline, no thyromegaly Respiratory: normal respiratory effort, lungs clear to auscultation Cardiovascular: RRR, no murmur, no edema Gastrointestinal (Abdomen): soft, NT, ND, BS +, Neurologic: patellar DTR's 2+ bilat, sensation intact Psychiatric: A+Ox3, euthymic affect Results & Data ([facility]) Vital Signs (Past 12 Hours) Vital Signs Temp Pulse Pulse Pulse Resp BP BP 05/14/22 12:26 36.5 C 84 18 135/63 05/14/22 09:00 89 05/14/22 08:00 36.8 C 86 18 133/63 05/14/22 07:04 87 18 05/14/22 02:44 36.6 C 107 H 16 118/62 Pulse Ox O2 Del Method O2 Flow Rate 05/14/22 12:26 95 Nasal Cannula 3 05/14/22 09:00 05/14/22 08:00 96 Nasal Cannula 3 05/14/22 07:04 94 Nasal Cannula 3 05/14/22 02:44 92 Nasal Cannula 3 Laboratory Results Abnormal lab results 05/13/22 05/13/22 05/13/22 Range/Units 13:06 13:06 13:06 WBC 4.28 L (4.8-10.8) K/ul RBC 3.93 L (4.70-6.10) M/uL Hgb 10.9 L (14.0-18.0) g/dl Hct 34.2 L (42.0-52.0) % MCHC 31.9 L (32.0-36.0) g/dL RDW Std Deviation 50.3 H (36.4-46.3) fL RDW Coeff of Arnoldo 15.8 H (11.5-14.5) % Neut # (Auto) (1.40-6.50) K/uL Lymph # (Auto) 0.23 L (1.2-3.4) K/uL [place] # (Auto) 0.02 L (0.11-0.59) K/uL Immature Gran # (Auto) (0.01-0.20) K/uL BUN 40 H (6-23) mg/dl Creatinine 1.80 H (0.6-1.4) mg/dl BUN/Creatinine Ratio 22.2 H (10-20) Glucose 168 H (70-99(Fasting)) mg/dl POC Glucose (70-99) mg/dl Lactate 2.7 H* (0.4-2.0) mmol/L Calcium (8.5-10.1) mg/dl Total Bilirubin 1.9 H (0.2-1.0) mg/dl Direct Bilirubin 1.1 H (0-0.2) mg/dl AST 385 H (13-39) U/L ALT 244 H (7-52) U/L Alkaline Phosphatase 123 H (34-104) U/L Procalcitonin (0-0.5) ng/ml Urine Protein (Negative) Urine Glucose (UA) (Negative) U Epithel Cells (Auto) (0-5) /lpf Enterobacterales (PCR) (NotDetected) E. coli (PCR) (NotDetected) CTX-M Gene Resistance (PCR) (NotDetected) 05/13/22 05/13/22 05/13/22 Range/Units 13:06 13:06 18:20 WBC (4.8-10.8) K/ul RBC (4.70-6.10) M/uL Hgb (14.0-18.0) g/dl Hct (42.0-52.0) % MCHC (32.0-36.0) g/dL RDW Std Deviation (36.4-46.3) fL RDW Coeff of Arnoldo (11.5-14.5) % Neut # (Auto) (1.40-6.50) K/uL Lymph # (Auto) (1.2-3.4) K/uL [place] # (Auto) (0.11-0.59) K/uL Immature Gran # (Auto) (0.01-0.20) K/uL BUN (6-23) mg/dl Creatinine (0.6-1.4) mg/dl BUN/Creatinine Ratio (10-20) Glucose (70-99(Fasting)) mg/dl POC Glucose (70-99) mg/dl Lactate (0.4-2.0) mmol/L Calcium (8.5-10.1) mg/dl Total Bilirubin (0.2-1.0) mg/dl Direct Bilirubin (0-0.2) mg/dl AST (13-39) U/L ALT (7-52) U/L Alkaline Phosphatase (34-104) U/L Procalcitonin 1.38 H (0-0.5) ng/ml Urine Protein 1+ H (Negative) Urine Glucose (UA) 3+ H (Negative) U Epithel Cells (Auto) 5-10 H (0-5) /lpf Enterobacterales (PCR) DETECTED A (NotDetected) E. coli (PCR) DETECTED A (NotDetected) CTX-M Gene Resistance (PCR) DETECTED A* (NotDetected) 05/13/22 05/14/22 05/14/22 Range/Units 21:42 08:00 08:00 WBC 23.34 H D (4.8-10.8) K/ul RBC 3.51 L (4.70-6.10) M/uL Hgb 9.8 L (14.0-18.0) g/dl Hct 30.5 L (42.0-52.0) % MCHC (32.0-36.0) g/dL RDW Std Deviation 51.2 H (36.4-46.3) fL RDW Coeff of Arnoldo 16.2 H (11.5-14.5) % Neut # (Auto) 20.97 H (1.40-6.50) K/uL Lymph # (Auto) 0.73 L (1.2-3.4) K/uL [place] # (Auto) 1.21 H (0.11-0.59) K/uL Immature Gran # (Auto) 0.38 H (0.01-0.20) K/uL BUN 43 H (6-23) mg/dl Creatinine 1.57 H (0.6-1.4) mg/dl BUN/Creatinine Ratio 27.4 H (10-20) Glucose (70-99(Fasting)) mg/dl POC Glucose 216 H (70-99) mg/dl Lactate (0.4-2.0) mmol/L Calcium 8.2 L (8.5-10.1) mg/dl Total Bilirubin 2.4 H (0.2-1.0) mg/dl Direct Bilirubin (0-0.2) mg/dl AST 563 H (13-39) U/L ALT 722 H (7-52) U/L Alkaline Phosphatase 133 H (34-104) U/L Procalcitonin (0-0.5) ng/ml Urine Protein (Negative) Urine Glucose (UA) (Negative) U Epithel Cells (Auto) (0-5) /lpf Enterobacterales (PCR) (NotDetected) E. coli (PCR) (NotDetected) CTX-M Gene Resistance (PCR) (NotDetected) Diagnostic Findings MRCP CLINICAL HISTORY: Elevated LFTs, abdominal pain TECHNIQUE: Utilizing a 1.5 Alexia magnet and dedicated coil, multiplanar, multiecho imaging of the upper abdomen was performed utilizing heavily T2 weighted pulsing sequences without IV contrast. COMPARISON STUDY: CT of the abdomen and pelvis and right upper quadrant ultrasound May 13, 2022. FINDINGS: There is no intra or extrahepatic biliary ductal dilatation. The common bile duct measures 5 mm in caliber. No common bile duct calculi are identified. Course and caliber of the main pancreatic duct is normal. No definite peripancreatic fluid. No peripancreatic fluid collections are present. Pancreatic glandular atrophy. No hepatic lesions are identified on unenhanced exam. The gallbladder is mildly distended. There is mild gallbladder wall thickening. No gallstones are identified. Unenhanced images of the spleen and adrenal glands are unremarkable. A few suspected left renal cysts measure up to 1.8 cm. There is a 5.6 cm right parapelvic cysts. Moderate right hydronephrosis is noted, similar to prior CT. There is no left hydronephrosis. Prominent retroperitoneal lymph nodes are similar to CT of July 27, 2020. Caliber of visualized small and large bowel are normal. IMPRESSION: 1. No biliary ductal dilatation. No common bile duct calculi. 2. Mild gallbladder distention. Mild gallbladder wall thickening. No gallstones identified. If indicated, a hepatobiliary scan could be obtained. 3. No change in moderate right hydronephrosis likely secondary to a right parapelvic cyst which exerts mass effect upon the right renal pelvis. ABDOMINAL ULTRASOUND, RIGHT UPPER QUADRANT HISTORY: elevated LFTs. GB Liver eval. COMPARISON: CT of the abdomen and pelvis May 13, 2022. FINDINGS: No hepatic lesions are identified. There is no biliary ductal dilatation. The common bile duct measures 6 mm in caliber. Pancreatic body is normal. Head and tail are partially obscured. The gallbladder is moderately distended. The wall is mildly thickened. There is no pericholecystic fluid. No gallstones are identified. No sonographic Farmer sign was elicited. A cyst within the right renal pelvis is again noted. This measures 5.4 x 5.2 x 4.9 cm. Right hydronephrosis is present. IMPRESSION: 1. No gallstones or biliary ductal dilatation. 2. Moderately distended gallbladder with mild gallbladder wall thickening. However, no sonographic Farmer sign. No convincing evidence for acute cholecystitis. If indicated, a hepatobiliary scan could be obtained. 3. Right renal cyst with moderate hydronephrosis, as shown on CT. ACT 112: Negative or not required by law. ABDOMEN AND PELVIS CT WITHOUT CONTRAST CT DOSE: 869.34 mGycm HISTORY: epigastric pain TECHNIQUE: Multiaxial CT images of the abdomen and pelvis were performed without contrast. A dose lowering technique was utilized adhering to the principles of ALARA. COMPARISON STUDY: Abdomen and pelvis CT 07/27/2020. FINDINGS: Mild motion artifact. Small patchy densities within the lung bases posteriorly favor mild dependent change. Old mild compression deformities at L1 and L2 are stable. There is an old right posterior 11th rib fracture. No acute rib fractures identified. Trace pericardial effusion is noted. The unenhanced liver, spleen, adrenal glands, and pancreas are unremarkable. The gallbladder is mildly distended. No gallbladder wall thickening. Mild to moderate bilateral perinephric edema, unchanged. Stable bilateral renal hypodense and hyperdense lesions. These are incompletely characters on this noncontrast study but favor cysts. The dominant 6.2 cm hyperdense lesion within the lower pole the right kidney continues to exert mass effect along the right renal pelvis and likely accounts for the moderate right hydronephrosis. This is similar to the prior study. No renal or ureteral stones identified. No left-sided hydronephrosis. Multiple prominent periportal and retroperitoneal lymph nodes remain stable. Calcified plaque within the normal caliber abdominal aorta. The bladder is unremarkable. The prostate gland is mildly enlarged. Suboptimal evaluation for bowel pathology due to the lack of intravenous and oral contrast. However, there is no definite bowel wall thickening or obstruction. Normal appendix. Moderate well-formed stool within the rectum. IMPRESSION: 1. Moderate hydronephrosis likely secondary to a 6.2 cm right renal cyst which exerts mass effect on the right renal pelvis. This is similar to the prior study. 2. No left-sided hydronephrosis. 3. No definite bowel wall thickening or obstruction. 4. Normal appendix. 5. Mildly distended gallbladder. However, no gallbladder wall thickening. 6. Additional findings as described above. ACT 112: Negative or not required by law.
[2022-05-14] MEDS: ASPIRIN 81 MG ECTAB PO SCH (14:00)
--- NOTE | 2022-05-14 14:59 | Pharmacy Report ---
Pharmacy Glycemic Short Note 2 - Date of Service May 14, 2022 - Glycemic Short BSG Results (Last 24 hours): 05/13/22 05/14/22 05/14/22 21:42 06:00 08:00 Glucose 98 POC Glucose 216 H 95 05/14/22 11:58 Glucose POC Glucose 86 OUTPATIENT ANTIDIABETIC REGIMEN: * Farxiga 10 mg PO QAM * Rebelsus 14mg PO QAM * Metformin 1000mg PO BID * A1c 7.7% 02/23/22 ASSESSMENT: * 77 year old male, admitted for bacteremia, elevated LFTs, IMP: Cholangitis ? cholecystitis? may need ERCP, on IV antibiotics at this time. * Patient has required only 4 units of insulin yesterday for BSG 215mg/dL, BSGs at goal all day today on 0 units of insulin, NPO at this time. * Continue CF/CR, hold basal until diet started. PLAN FOR INPATIENT GLYCEMIC CONTROL: * Hold outpatient oral diabetes medications * Basal insulin * None at this time * Bolus insulin * NovoLog per scale ACHS or Q6hrs while NPO * Goal Range: Low 110 mg/dL - High 140 mg/dL * Correction Factor: 25 mg/dL/unit * Nutritional / Prandial insulin per carb ratio of 1 unit per 8 grams CHO consumed
[2022-05-14] MEDS: ENOXAPARIN INJ 40 MG/0.4 ML SYR SQ SCH (20:40)
[2022-05-15] MEDS: INSULIN ASPART PER UNIT SC SCH ×4 (06:27→20:33)
[2022-05-15 06:28] LABS: Hematocrit (blood only) 30.7 % (42.0-52.0); Hemoglobin 9.8 g/dl (14.0-18.0); Mean Corpuscular Hemoglobin 27.8 pg (25.0-34.0); Mean Corpuscular Hgb Conc 31.9 g/dL (32.0-36.0); Mean Corpuscular Volume 87.2 fL (80.0-100.0); Mean Platelet Volume 10.8 fL (9.4-12.4); Platelet Count 162 K/uL (130-400); RDW Coefficient of Variation 16.2 % (11.5-14.5); RDW Standard Deviation 51.4 fL (36.4-46.3); Red Blood Count 3.52 M/uL (4.70-6.10); White Blood Count 19.84 K/ul (4.8-10.8)
[2022-05-15 06:44] LABS: Albumin Globulin Ratio 1.1 (0.9-2); Albumin Level 3.4 gm/dl (3.4-5.0); BUN Creatinine Ratio 27.9 (10-20); Bilirubin,Total 1.8 mg/dl (0.2-1.0); Calcium 8.3 mg/dl (8.5-10.1); Creatinine Clr Calc Pharmacy 46.9 ml/min; Est GFR (African American) 50.4 ml/min; Est GFR (Non-African American) 43.5 ml/min; Potassium 4.1 mmol/L (3.5-5.1); Total Protein 6.4 gm/dl (6.0-8.3)
[2022-05-15 06:49] LABS: ANC (manual) 18.65 K/uL (1.4-6.5); Echinocytes 1+; Eosinophils % (manual) 3 %; Lymphocytes % (manual) 2 %; Monocytes % (manual) 2 %; Neutrophils # (manual) 18.65 K/uL (1.40-6.50); Neutrophils % (manual) 94 %
[2022-05-15] MEDS: BUDESONIDE 0.5 MG/2 ML VIAL (PULMICORT) INH SCH ×2 (07:08→18:57)
[2022-05-15] MEDS: FORMOTEROL 20 MCG/2 ML VIAL INH SCH ×2 (07:08→18:57)
[2022-05-15] MEDS: ERTAPENEM SODIUM 1,000 MG in SYRINGE 0 ML IV SCH (08:03)
[2022-05-15] MEDS: UMECLIDINIUM BROMIDE 62.5MCG/BLISTER 7 PUFFS/INHALER INH SCH (08:04)
[2022-05-15] MEDS: dilTIAZem HCL 240 MG CAPCR PO SCH ×2 (08:04→20:48)
[2022-05-15] MEDS: ASPIRIN 81 MG ECTAB PO SCH (08:04)
[2022-05-15] MEDS: LACTATED RINGER'S 1,000 ML IV SCH (09:50)
--- NOTE | 2022-05-15 09:55 | Gastroenterology Progress Note ---
Date of Service May 15, 2022 Assessment & Plan (1) Elevated LFTs: Plan: He has a mixed picture at this time of elevated LFTs which could go along with systemic illness, but no evidence of any biliary obstruction. However he does have evidence of gram-negative bacilli in his blood without a clear source. MRI on my read does not show evidence of biliary obstruction, does show distended gallbladder, for fortunately at this time he is pain-free and he is hemod ynamically stable. Will await results of this morning's LFTs as well as formal read on the MRCP. Given bactermemia will plan on EUS/ERCP tomorrow given clinical stablitly with Dr. Arlene Mcege for liquids today Agree with general surgery consultation, agree with continued IV antibiotics and respiratory support. He is a high risk anesthesia candidate based upon his comorbidities Call with any questions. Admission and Anticipated Discharge Date Admission Date: May 13, 2022 Subjective feels better sitting on bedside, no pain Review of Systems Review of Systems: 10 system per HPI otherwise negative Physical Exam Physical Exam: Awake alert [place] x3 Patient is taking a nebulizer treatment very conversant Denies any abdominal pain Lungs are diminished with bilateral crackles Abdomen is soft nontender nondistended 2+ peripheral edema Results & Data ([facility]) Vital Signs (Past 12 Hours) Vital Signs Temp Pulse Pulse Resp BP BP Pulse Ox 05/15/22 09:00 89 05/15/22 09:00 05/15/22 07:56 37.0 C 89 20 153/68 H 94 05/15/22 07:09 79 17 94 05/14/22 23:00 80 05/15/22 02:25 36.9 C 102 H 19 152/55 H 91 05/14/22 23:08 36.6 C 103 H 18 138/58 L 92 O2 Del Method O2 Flow Rate 05/15/22 09:00 05/15/22 09:00 Room Air 05/15/22 07:56 Nasal Cannula 3 05/15/22 07:09 3 05/14/22 23:00 05/15/22 02:25 Nasal Cannula 3 05/14/22 23:08 Nasal Cannula 3
[2022-05-15] MEDS: PANTOprazole 40 MG in SYRINGE 0 ML IV SCH (10:44)
--- NOTE | 2022-05-15 13:51 | Hospitalist Progress Note ---
Date of Service May 15, 2022 Assessment & Plan (1) Elevated LFTs: Plan: Uncertain etiology. No definite evidence of acute cholecystitis. Appreciate gastroenterology consultation and recommendations. Serial labs. No obstruction or acute cholecystitis seen on MRCP. EUS and ERCP tomorrowMay 16 (2) SVT (supraventricular tachycardia): Plan: Currently stable. Continue diltiazem 240 mg p.o. twice daily (3) Chronic respiratory failure with hypoxia: Plan: Currently stable. Baseline 3 L/min O2 (4) Severe chronic obstructive pulmonary disease: Plan: Currently stable. Continue Spiriva Respimat, Perforomist and budesonide nebulizers twice daily (5) DM type 2 (diabetes mellitus, type 2): Plan: HbA1c 7.7 in February. Hold home meds of Farxiga and metformin. Sliding scale coverage as needed (6) Coronary artery disease: Plan: Aspirin was held on admission but will be restarted since there does not appear any indication for urgent surgical intervention. Hold atorvastatin while n.p.o. Not on beta-sawyer chronically (7) Anemia: Plan: Appears to be at baseline. No overt bleeding. Serial labs (8) Hypertension: Plan: Diuretics currently on hold. Continue diltiazem (9) WENDY (obstructive sleep apnea): Plan: Stable. Patient intolerant to CPAP (10) Bacteremia: Plan: Gram-negative's isolated. Final identification pending. He is now on ertapenem ertapenem, day 2. Will tailor antibiotics according to culture results and s ensitivities Plan VTE prophylaxis - Lovenox 40 mg subcu daily . Disposition -anticipate eventual discharge back to home on oral antibiotics later this week Admission and Anticipated Discharge Date Admission Date: May 13, 2022 Subjective Alert and oriented. No acute distress. Daughter is at the bedside. Gastroenterology entry noted. EUS and ERCP scheduled for tomorrow, May 16. He remains on ertapenem, day 2. Blood cultures growing gram-negative rods with final identification pending. Creatinine down to 1.5 and stable. IV fluids taper down. Review of Systems Review of Systems: Constitutional-no fever or chills ENT-no blurred vision, no double vision, no epistaxis, no sore throat Respiratory-no cough, no wheezing, no shortness of breath Cardiac-no palpitations, no chest pain, no syncope GI-no nausea, vomiting, diarrhea, melena, hematochezia -no urinary retention, no urinary incontinence, no dysuria, no hematuria Musculoskeletal-no joint pain, no muscle tenderness Skin-no bruising, no rashes, no pruritus Neuro-no isolated weakness, no paresthesia, no weakness Psych-no depression, no anxiety Physical Exam Physical Exam: General-alert and oriented x3, no fevers, no chills HEENT-head atraumatic and normocephalic, pupils equal and reactive to light, extraocular muscles intact Neck-no lymphadenopathy or thyromegaly, trachea midline Chest-clear to auscultation percussion. No rales wheezing or rhonchi Cardiac-regular rate and rhythm, normal S1 and S2 Abdomen-normal bowel sounds, nontender, no hepatosplenomegaly Extremities-no cyanosis, clubbing, or edema Neuro-cranial nerves II through XII intact, motor and sensory function within normal limits, strength symmetrical , no focal deficits Psych-normal affect, normal mood Results & Data Results & Data ([facility]) Vital Signs (Past 12 Hours) Vital Signs Temp Pulse Pulse Resp BP BP Pulse Ox 05/15/22 11:45 36.8 C 89 18 153/77 H 92 05/15/22 09:00 89 05/15/22 09:00 05/15/22 07:56 37.0 C 89 20 153/68 H 94 05/15/22 07:09 79 17 94 05/15/22 02:25 36.9 C 102 H 19 152/55 H 91 O2 Del Method O2 Flow Rate 05/15/22 11:45 Nasal Cannula 3 05/15/22 09:00 05/15/22 09:00 Room Air 05/15/22 07:56 Nasal Cannula 3 05/15/22 07:09 3 05/15/22 02:25 Nasal Cannula 3 Laboratory Results 05/15/22 05:47 05/15/22 05:47 PG Care Time/CCT Total # of Minutes Spent Total Time Spent with Patient: Total time spent is greater than 50% in coordination of care (as documented) at patient's floor/unit and/or counseling patient: Coding Level of Care Code 77030 SUB INP/OBS CARE 3/50MIN Diagnoses Elevated LFTs R79.89 SVT (supraventricular tachycardia) I47.1 Chronic respiratory failure with hypoxia J96.11 Severe chronic obstructive pulmonary disease J44.9 DM type 2 (diabetes mellitus, type 2) E11.9 Diabetes mellitus detention insulin use: without medical terminologist use Diabetes mellitus complication status: without complication Coronary artery disease I25.10 Coronary Disease-Associated Artery/Lesion type: [place] artery [place] vs. transplanted heart: [place] heart Associated angina: without angina Anemia D64.9 Anemia type: unspecified type Hypertension I10 Hypertension type: essential hypertension WENDY (obstructive sleep apnea) G47.33 Bacteremia R78.81 (1) DM type 2 (diabetes mellitus, type 2) Diabetes mellitus medical terminologist insulin use: without medical terminologist use Diabetes mellitus complication status: without complication Qualified Code(s): E11.9 - Type 2 diabetes mellitus without complications (2) Coronary artery disease Coronary Disease-Associated Artery/Lesion type: [place] artery [place] vs. transplanted heart: [place] heart Associated angina: without angina Qualified Code(s): I25.10 - Atherosclerotic heart disease of [place] coronary artery without angina pectoris (3) Anemia Anemia type: unspecified type Qualified Code(s): D64.9 - Anemia, unspecified (4) Hypertension Hypertension type: essential hypertension Qualified Code(s): I10 - Essential (primary) hypertension
--- NOTE | 2022-05-15 14:11 | Surgery Progress Note ---
Date of Service May 15, 2022 Assessment & Plan (1) Elevated LFTs: Plan: pt is a 77 year old male who was admitted to hospital for bacteremia, elevated FLT IMP: Cholangitis ? cholecystitis? base on pt's H/P, labs and imaging finding, may need ERCP, continue iv a ntibiotic, no emergent surgery cholecystectomy now, will F/U, 05/15/2022 2:12 PM MRCP- no CBD stone, no gallstone pt has no abdominal pain, continue conservative treatment, no emergent surgery indication now, will F/U, Admission and Anticipated Discharge Date Admission Date: May 13, 2022 Subjective Alert and oriented. No acute distress. Daughter is at the bedside. Gastroenterology entry noted. EUS and ERCP scheduled for tomorrow, May 16. He remains on ertapenem, day 2. Blood cultures growing gram-negative rods with final identification pending. Creatinine down to 1.5 and stable. IV fluids taper down. 05/15/2022 2:[address] Medina pt denies abdominal pain, no nausea, no vomiting, Review of Systems Constitutional: as per Subjective / HPI Eyes: as per Subjective / HPI Respiratory: chronic respiratory failure with hypoxia, pulmonay hypertension, COPD Cardiovascular: Additional Comments: HTN, SVT Gastrointestinal: GI bleeding Genitourinary: + as per Subjective / HPI Musculoskeletal: as per Subjective / HPI Neurologic: as per Subjective / HPI Psychiatric: as per Subjective / HPI Endocrine: as per Subjective / HPI Hematologic / Lymphatic: anemia Physical Exam Constitutional: WD/WN, vitals as above Eyes: PERRL, conjunctivae normal, anicteric sclerae Neck: trachea midline, no thyromegaly Respiratory: normal respiratory effort, lungs clear to auscultation Cardiovascular: RRR, no murmur, no edema Gastrointestinal (Abdomen): soft, NT, ND, BS + Neurologic: patellar DTR's 2+ bilat, sensation intact Psychiatric: A+Ox3, euthymic affect Results & Data ([facility]) Vital Signs (Past 12 Hours) Vital Signs Temp Pulse Pulse Resp BP BP Pulse Ox 05/15/22 11:45 36.8 C 89 18 153/77 H 92 05/15/22 09:00 89 05/15/22 09:00 05/15/22 07:56 37.0 C 89 20 153/68 H 94 05/15/22 07:09 79 17 94 02/12/23 02:25 36.9 C 102 H 19 152/55 H 91 O2 Del Method O2 Flow Rate 05/15/22 11:45 Nasal Cannula 3 05/15/22 09:00 05/15/22 09:00 Room Air 05/15/22 07:56 Nasal Cannula 3 05/15/22 07:09 3 05/15/22 02:25 Nasal Cannula 3 Laboratory Results Abnormal lab results 05/14/22 05/14/22 05/15/22 Range/Units 16:29 23:13 05:47 WBC 19.84 H (4.8-10.8) K/ul RBC 3.52 L (4.70-6.10) M/uL Hgb 9.8 L (14.0-18.0) g/dl Hct 30.7 L (42.0-52.0) % MCHC 31.9 L (32.0-36.0) g/dL RDW Std Deviation 51.4 H (36.4-46.3) fL RDW Coeff of Arnoldo 16.2 H (11.5-14.5) % Neutrophils # (Manual) 18.65 H (1.40-6.50) K/uL Total Absolute Neuts 18.65 H (1.4-6.5) K/uL Lymphocytes # (Manual) 0.40 L (1.2-3.4) K/uL Total Abs Lymphocytes 0.40 L (1.2-3.4) K/uL Eosinophils # (Manual) 0.60 H (0-0.50) K/uL BUN (6-23) mg/dl Creatinine (0.6-1.4) mg/dl BUN/Creatinine Ratio (10-20) POC Glucose 106 H 105 H (70-99) mg/dl Calcium (8.5-10.1) mg/dl Total Bilirubin (0.2-1.0) mg/dl AST (13-39) U/L ALT (7-52) U/L Alkaline Phosphatase (34-104) U/L 05/15/22 05/15/22 Range/Units 05:47 11:46 WBC (4.8-10.8) K/ul RBC (4.70-6.10) M/uL Hgb (14.0-18.0) g/dl Hct (42.0-52.0) % MCHC (32.0-36.0) g/dL RDW Std Deviation (36.4-46.3) fL RDW Coeff of Arnoldo (11.5-14.5) % Neutrophils # (Manual) (1.40-6.50) K/uL Total Absolute Neuts (1.4-6.5) K/uL Lymphocytes # (Manual) (1.2-3.4) K/uL Total Abs Lymphocytes (1.2-3.4) K/uL Eosinophils # (Manual) (0-0.50) K/uL BUN 43 H (6-23) mg/dl Creatinine 1.54 H (0.6-1.4) mg/dl BUN/Creatinine Ratio 27.9 H (10-20) POC Glucose 114 H (70-99) mg/dl Calcium 8.3 L (8.5-10.1) mg/dl Total Bilirubin 1.8 H (0.2-1.0) mg/dl AST 232 H (13-39) U/L ALT 470 H (7-52) U/L Alkaline Phosphatase 153 H (34-104) U/L Diagnostic Findings MRCP CLINICAL HISTORY: Elevated LFTs, abdominal pain TECHNIQUE: Utilizing a 1.5 Alexia magnet and dedicated coil, multiplanar, multiecho imaging of the upper abdomen was performed utilizing heavily T2 weighted pulsing sequences without IV contrast. COMPARISON STUDY: CT of the abdomen and pelvis and right upper quadrant ultrasound May 13, 2022. FINDINGS: There is no intra or extrahepatic biliary ductal dilatation. The common bile duct measures 5 mm in caliber. No common bile duct calculi are identified. Course and caliber of the main pancreatic duct is normal. No defin ite peripancreatic fluid. No peripancreatic fluid collections are present. Pancreatic glandular atrophy. No hepatic lesions are identified on unenhanced exam. The gallbladder is mildly distended. There is mild gallbladder wall thickening. No gallstones are identified. Unenhanced images of the spleen and adrenal glands are unremarkable. A few suspected left renal cysts measure up to 1.8 cm. There is a 5.6 cm right parapelvic cysts. Moderate right hydronephrosis is noted, similar to prior CT. There is no left hydronephrosis. Prominent retroperitoneal lymph nodes are similar to CT of July 27, 2020. Caliber of visualized small and large bowel are normal. IMPRESSION: 1. No biliary ductal dilatation. No common bile duct calculi. 2. Mild gallbladder distention. Mild gallbladder wall thickening. No gallstones identified. If indicated, a hepatobiliary scan could be obtained. 3. No change in moderate right hydronephrosis likely secondary to a right parapelvic cyst which exerts mass effect upon the right renal pelvis.
[2022-05-15] MEDS ORDERED: Nursing to Pharmacy Communication SCH (16:45)
[2022-05-15] MEDS: ENOXAPARIN INJ 40 MG/0.4 ML SYR SQ SCH (20:48)
[2022-05-16] MEDS: LACTATED RINGER'S 1,000 ML IV SCH (06:11)
[2022-05-16 06:37] LABS: Basophils # (auto) 0.02 K/uL (0-0.2); Basophils % (auto) 0.2 %; Eosinophils # (auto) 0.33 K/uL (0-0.50); Eosinophils % (auto) 2.5 %; Hematocrit (blood only) 28.7 % (42.0-52.0); Immature Granulocytes # (auto) 0.38 K/uL (0.01-0.20); Immature Granulocytes % (auto) 2.9 %; Lymphocytes # (auto) 0.45 K/uL (1.2-3.4); Lymphocytes % (auto) 3.5 %; Mean Corpuscular Hemoglobin 27.5 pg (25.0-34.0); Mean Corpuscular Hgb Conc 31.4 g/dL (32.0-36.0); Mean Corpuscular Volume 87.8 fL (80.0-100.0); Mean Platelet Volume 10.9 fL (9.4-12.4); Monocytes # (auto) 0.53 K/uL (0.11-0.59); Monocytes % (auto) 4.1 %; Neutrophils # (auto) 11.27 K/uL (1.40-6.50); Neutrophils % (auto) 86.8 %; Platelet Count 152 K/uL (130-400); RDW Coefficient of Variation 16.1 % (11.5-14.5); RDW Standard Deviation 52.2 fL (36.4-46.3); Red Blood Count 3.27 M/uL (4.70-6.10); White Blood Count 12.98 K/ul (4.8-10.8)
[2022-05-16 06:52] LABS: Albumin Globulin Ratio 1.2 (0.9-2); Albumin Level 3.3 gm/dl (3.4-5.0); BUN Creatinine Ratio 29.9 (10-20); Bilirubin,Total 0.9 mg/dl (0.2-1.0); Calcium 7.9 mg/dl (8.5-10.1); Creatinine Clr Calc Pharmacy 56.9 ml/min; Est GFR (African American) 63.6 ml/min; Est GFR (Non-African American) 54.9 ml/min; Globulin 2.7 gm/dl (2.5-4.0); Potassium 3.9 mmol/L (3.5-5.1)
[2022-05-16] MEDS: FORMOTEROL 20 MCG/2 ML VIAL INH SCH ×2 (07:03→19:36)
[2022-05-16] MEDS: BUDESONIDE 0.5 MG/2 ML VIAL (PULMICORT) INH SCH ×2 (07:03→19:36)
--- NOTE | 2022-05-16 07:06 | Hospitalist Progress Note ---
Date of Service May 16, 2022 Assessment & Plan (1) Elevated LFTs: Plan: Uncertain etiology, possible cholangitis/cholecystitis? LFTs downtrending, TBili normal today (previously elevated), WBC count down to 12. Appreciate Gastroenterology and Gen. Surg consultations, and case personally discussed with both services. No obstruction or acute cholecystitis seen on MRCP; suspect stone passed without intervention and this plus Abx is why patient's symptoms have resolved. No indication for ERCP/EUS given possible risks and given suspect stone is no longer present. Gen. Surg recommends deferring cholecystectomy at this time given improvement with Abx and bowel rest. Can consider drain in future if necessary if symptoms were to worsen or clinically were to worsen while admitted. Follow LFTs, CBC. Continue ertapenem as described below. F/u GI outpatient. (2) Bacteremia: Plan: ESBL bacteremia noted on BCx collected 05/13, sensitive to ertapenem and amox/clav, started on ertapenem 05/14, and anticipate transition to oral Abx on eventual discharge. (3) ESBL (extended spectrum beta-lactamase) producing bacteria infection: Plan: see above (4) SVT (supraventricular tachycardia): Plan: Currently stable. Continue diltiazem 240 mg p.o. twice daily. (5) Chronic respiratory failure with hypoxia: Plan: Currently stable. Baseline 3 L/min O2. (6) Severe chronic obstructive pulmonary disease: Plan: Currently stable. Continue Spiriva Respimat, Perforomist and budesonide nebulizers twice daily. (7) DM type 2 (diabetes mellitus, type 2): Plan: HbA1c 7.7 in February. Hold home meds of Farxiga and metformin for possible GI intervention. Sliding scale coverage as needed, BSGs normal range. (8) Coronary artery disease: Plan: Resume home aspirin in AM. (9) Anemia: Plan: Appears to be at baseline. No overt bleeding. Hgb 9.0 this AM (has been on very gentle IVF 50cc/hr since admission). Resume iron supplement. (10) Hypertension: Plan: Continue diltiazem. Resume HCTZ. Continue to hold furosemide. (11) WENDY (obstructive sleep apnea): Plan: Patient intolerant to CPAP. Plan FULL CODE May resume diet per consulting services VTE prophylaxis - Lovenox 40 mg SQ daily Disposition - anticipate eventual discharge back to home on oral antibiotics Admission and Anticipated Discharge Date Admission Date: May 13, 2022 Subjective Patient without any acute events overnight. No complaints of fevers, abdominal pain, nausea, vomiting, SOB compared to baseline, or chest pain. Feeling hungry today. States on admission did have pain underneath his rib cage bilaterally and N/V but those things are gone now. Review of Systems Review of Systems: All systems reviewed & are unremarkable except as noted in Subjective Physical Exam Constitutional: WD/WN, vitals as above Respiratory: normal respiratory effort, lungs clear to auscultation Cardiovascular: RRR, no murmur, no edema Gastrointestinal (Abdomen): normal bowel sounds, soft, nontender, no hepatosplenomegaly Skin: no rashes, warm and dry Psychiatric: A+Ox3, euthymic affect Results & Data Results & Data ([facility]) Vital Signs (Past 12 Hours) Vital Signs Temp Pulse Pulse Resp BP Pulse Ox O2 Del Method 05/16/22 03:33 81 18 163/70 H 92 Nasal Cannula 05/15/22 23:30 86 05/15/22 20:00 Nasal Cannula 05/15/22 19:27 36.9 C 85 19 153/76 H 94 Nasal Cannula O2 Flow Rate 05/16/22 03:33 05/15/22 23:30 05/15/22 20:00 3 05/15/22 19:27 PG Care Time/CCT Total # of Minutes Spent Total Time Spent with Patient: Total time spent is greater than 50% in coordination of care (as documented) at patient's floor/unit and/or counseling patient: Coding Level of Care Code 53091 SUB INP/OBS CARE 3/50MIN Diagnoses Elevated LFTs R79.89 Bacteremia R78.81 ESBL (extended spectrum beta-lactamase) producing bacteria infection A49.9; Z16.12 SVT (supraventricular tachycardia) I47.1 Chronic respiratory failure with hypoxia J96.11 Severe chronic obstructive pulmonary disease J44.9 DM type 2 (diabetes mellitus, type 2) E11.9 Diabetes mellitus complication status: without complication Diabetes mellitus snf insulin use: without vermin exterminator use Coronary artery disease I25.10 Associated angina: without angina Coronary Disease-Associated Artery/Lesion type: [place] artery [place] vs. transplanted heart: [place] heart Anemia D64.9 Anemia type: unspecified type Hypertension I10 Hypertension type: essential hypertension WENDY (obstructive sleep apnea) G47.33 (1) DM type 2 (diabetes mellitus, type 2) Diabetes mellitus complication status: without complication Diabetes mellitus vermin exterminator insulin use: without snf use Qualified Code(s): E11.9 - Type 2 diabetes mellitus without complications (2) Coronary artery disease Associated angina: without angina Coronary Disease-Associated Artery/Lesion type: [place] artery [place] vs. transplanted heart: [place] heart Qualified Code(s): I25.10 - Atherosclerotic heart disease of [place] coronary artery without angina pectoris (3) Anemia Anemia type: unspecified type Qualified Code(s): D64.9 - Anemia, unspecified (4) Hypertension Hypertension type: essential hypertension Qualified Code(s): I10 - Essential (primary) hypertension
[2022-05-16] MEDS: UMECLIDINIUM BROMIDE 62.5MCG/BLISTER 7 PUFFS/INHALER INH SCH (07:32)
[2022-05-16] MEDS: dilTIAZem HCL 240 MG CAPCR PO SCH ×2 (07:33→20:10)
[2022-05-16] MEDS: ERTAPENEM SODIUM 1,000 MG in SYRINGE 0 ML IV SCH (07:33)
[2022-05-16] MEDS: INSULIN ASPART PER UNIT SC SCH ×4 (07:38→20:00)
--- NOTE | 2022-05-16 09:43 | Gastroenterology Progress Note ---
Date of Service May 16, 2022 Assessment & Plan (1) Bacteremia: (2) Elevated LFTs: (3) Dilated gallbladder: Plan Case reviewed by Dr. Jacobs, advanced endoscopist who feels that benefits of ERCP outweigh risks. El LFTs, pain and dilated gallbladder w E coli bacteremia are suggestive of choledocholithiasis w cholangitis. However, MRCP is (-) suggesting that he passed gallstone/s but no longer has any obstructing the CBD. With LFTs improving and MRCP (-) ERCP would be unlikely to yield an abnormality. With his comorbidities he is at increased risk for complications from any procedures. At this point, recommend against ERCP. No GI contraindication to advancing diet, but would defer to surgery. Would finish course of antibiotics to address E Coli bacteremia. If cholecystectomy is needed and pt is deemed too high risk, then permanent Axios stent placement to drain the gallbladder to the duodenum could be offered by GI. Discussed w Frances Davis, [facility] surgery who will address w Dr. Medina. For now, GI will sign off. Pleas notify us if new/worsening GI issues or if Axios stent placement is requested. Admission and Anticipated Discharge Date Admission Date: May 13, 2022 Supervising Physician Co-Signing Physician Notes Benign abdominal exam Agree wih further plan fo care as documented above. No plans for ercp. Potential lap manolo. Subjective 77 yr old male w hx of CAD, COPD, Chronic respiratory failure who presented to [facility] on Saturday 05/13 for upper abd pain. Leukocytosis on arrival at 23, resoling w Zosyn 12. LFTs elevated on arrival, improving. T Bili 1.9->2.4->1.8 AST 285->563->232. ALT 244->722->470->289; Alk Phos 123->133->153->187. Pt's pain resolved. Review of Systems Review of Systems: ROS: Gen: + weakness - now back to baseline. No fevers, No unintentional weight loss Eyes: No eye redness, or pain, no recent vision changes Resp: + chronic SOB, no worsening. Cardio: No palpitations/irregular beats, no chest pain GI: Abd pain is resolved. No N/V. : Denies pain on urination Skin: No jaundice, itching or new rashes Physical Exam Constitutional: + ill appearing (chronically), cooperative, comfortable and + overweight Eyes: PERRL, conjunctivae normal, anicteric sclerae ENMT: external ear and nose normal, oropharynx normal Neck: trachea midline, no thyromegaly Respiratory: Diminished at the bases, no adventitious sounds Cardiovascular: RRR, no murmur, no edema Gastrointestinal (Abdomen): normal bowel sounds, soft, nontender, no hepatosplenomegaly Musculoskeletal: no cyanosis or clubbing, extremities motor strength 5/5 Skin: no rashes, warm and dry Neurologic: PERRL, EOMI, accommodation nl, no face palsy, no dysarthria Psychiatric: A+Ox3, euthymic affect Lymphatic: no cervical or axillary lymphadenopathy Results & Data ([facility]) Vital Signs (Past 12 Hours) Vital Signs Temp Pulse Pulse Resp BP Pulse Ox O2 Del Method 05/16/22 08:54 81 05/16/22 08:54 Room Air 05/16/22 08:12 36.9 C 87 20 172/81 H 94 Nasal Cannula 05/16/22 07:16 85 18 93 Nasal Cannula 05/16/22 07:13 81 05/16/22 03:33 81 18 163/70 H 92 Nasal Cannula 05/15/22 23:30 86 O2 Flow Rate 05/16/22 08:54 05/16/22 08:54 05/16/22 08:12 3.0 05/16/22 07:16 3 05/16/22 07:13 05/16/22 03:33 05/15/22 23:30 Laboratory Results LFTS - see HPI WBC 12.98, Hb 9.0, Hct 28.7, Plts 152, Na 141, K 3.9, BUN 38, Cr 1.27, glucose 95. Diagnostic Findings MRCP 05/15/22: 1. No biliary ductal dilatation. No common bile duct calculi. 2. Mild gallbladder distention. Mild gallbladder wall thickening. No gallstones identified. If indicated, a hepatobiliary scan could be obtained. 3. No change in moderate right hydronephrosis likely secondary to a right parapelvic cyst which exerts mass effect upon the right renal pelvis. Abd US 05/13/22: 1. No gallstones or biliary ductal dilatation. 2. Moderately distended gallbladder with mild gallbladder wall thickening. However, no sonographic Farmer sign. No convincing evidence for acute cholecystitis. If indicated, a hepatobiliary scan could be obtained. 3. Right renal cyst with moderate hydronephrosis, as shown on CT. CTAP 05/13/22: 1. Moderate hydronephrosis likely secondary to a 6.2 cm right renal cyst which exerts mass effect on the right renal pelvis. This is similar to the prior study. 2. No left-sided hydronephrosis. 3. No definite bowel wall thickening or obstruction. 4. Normal appendix. 5. Mildly distended gallbladder. However, no gallbladder wall thickening. 6. Additional findings as described above.
[2022-05-16] MEDS: PANTOprazole 40 MG in SYRINGE 0 ML IV SCH (10:38)
--- NOTE | 2022-05-16 15:01 | Surgery Progress Note ---
Date of Service May 16, 2022 Assessment & Plan (1) Bacteremia: (2) Elevated LFTs: Plan MRCP negative for choledocholithiasis, there is some mild gallbladder wall thickening and pericholecystic fluid. He is not having any abdominal pain and his leukocytosis has significantly decreased down to 12k from 19k and he is afebrile. t. bili and lfts are downtrending as well. Given his comorbidities he is at significantly increased risk for surgery and given that he is afebrile, no abdominal pain and no obstruction on MRCP would continue conservative management with antibiotics and starting a diet. If he starts having pain with eating or any change clinically he would likely benefit from axios stent placement to drain gallbladder instead of undergoing laparoscopic cholecystectomy given elevated surgical risk and comorbidities. Gave update to Daughter Carmen over the phone. Discussed with Dr. keene who agrees with above. Admission and Anticipated Discharge Date Admission Date: May 13, 2022 Subjective no abdominal pain today or yesterday specifically with all three meals hungry would like some food no nausea or vomiting Physical Exam Constitutional: WD/WN, vitals as above + frail appearing, cooperative and comfortable; no acute distress Neck: normal visual inspection and trachea midline Respiratory: normal respiratory effort; no respiratory distress and no labored breathing oxygen via nasal cannula Gastrointestinal (Abdomen): Inspection/Auscultation: abdomen normal to inspection and + hypoactive bowel sounds; abdomen not distended and + abnormal bowel sounds Percussion/Palpation: abdomen soft; abdomen nontender, no guarding and abdomen not rigid Skin: no rashes, warm and dry no jaundice Psychiatric: A+Ox3, euthymic affect Results & Data ([facility]) Vital Signs (Past 12 Hours) Vital Signs Temp Pulse Pulse Resp BP Pulse Ox O2 Del Method 05/16/22 11:26 36.9 C 84 19 152/76 H 93 Nasal Cannula 05/16/22 08:54 81 05/16/22 08:54 Room Air 05/16/22 08:12 36.9 C 87 20 172/81 H 94 Nasal Cannula 05/16/22 07:16 85 18 93 Nasal Cannula 05/16/22 07:13 81 05/16/22 03:33 81 18 163/70 H 92 Nasal Cannula O2 Flow Rate 05/16/22 11:26 3.0 05/16/22 08:54 05/16/22 08:54 05/16/22 08:12 3.0 05/16/22 07:16 3 05/16/22 07:13 05/16/22 03:33 Laboratory Results 05/16/22 05/16/22 05/16/22 Range/Units 11:24 06:19 06:19 WBC 12.98 H (4.8-10.8) K/ul RBC 3.27 L (4.70-6.10) M/uL Hgb 9.0 L (14.0-18.0) g/dl Hct 28.7 L (42.0-52.0) % MCV 87.8 (80.0-100.0) fL MCH 27.5 (25.0-34.0) pg MCHC 31.4 L (32.0-36.0) g/dL RDW Std Deviation 52.2 H (36.4-46.3) fL RDW Coeff of Arnoldo 16.1 H (11.5-14.5) % Plt Count 152 (130-400) K/uL MPV 10.9 (9.4-12.4) fL Immature Gran % (Auto) 2.9 % Neut % (Auto) 86.8 % Lymph % (Auto) 3.5 % [place] % (Auto) 4.1 % Eos % (Auto) 2.5 % Baso % (Auto) 0.2 % Neut # (Auto) 11.27 H (1.40-6.50) K/uL Lymph # (Auto) 0.45 L (1.2-3.4) K/uL [place] # (Auto) 0.53 (0.11-0.59) K/uL Eos # (Auto) 0.33 (0-0.50) K/uL Baso # (Auto) 0.02 (0-0.2) K/uL Immature Gran # (Auto) 0.38 H (0.01-0.20) K/uL Sodium 141 (136-145) mmol/L Potassium 3.9 (3.5-5.1) mmol/L Chloride 108 H (98-107) mmol/L Carbon Dioxide 30 (21-32) mmol/L Anion Gap 3 (3-11) BUN 38 H (6-23) mg/dl Creatinine 1.27 (0.6-1.4) mg/dl Est Cr Clr Drug Dosing 56.9 ml/min Est GFR ( Amer) 63.6 ml/min Est GFR (Non-Af Amer) 54.9 ml/min BUN/Creatinine Ratio 29.9 H (10-20) Glucose 95 (70-99(Fasting)) mg/dl POC Glucose 86 (70-99) mg/dl Calcium 7.9 L (8.5-10.1) mg/dl Total Bilirubin 0.9 D (0.2-1.0) mg/dl AST 96 H (13-39) U/L ALT 299 H (7-52) U/L Alkaline Phosphatase 187 H (34-104) U/L Total Protein 6.0 (6.0-8.3) gm/dl Albumin 3.3 L (3.4-5.0) gm/dl Globulin 2.7 (2.5-4.0) gm/dl Albumin/Globulin Ratio 1.2 (0.9-2) 05/15/22 05/15/22 Range/Units 20:30 16:32 WBC (4.8-10.8) K/ul RBC (4.70-6.10) M/uL Hgb (14.0-18.0) g/dl Hct (42.0-52.0) % MCV (80.0-100.0) fL MCH (25.0-34.0) pg MCHC (32.0-36.0) g/dL RDW Std Deviation (36.4-46.3) fL RDW Coeff of Arnoldo (11.5-14.5) % Plt Count (130-400) K/uL MPV (9.4-12.4) fL Immature Gran % (Auto) % Neut % (Auto) % Lymph % (Auto) % [place] % (Auto) % Eos % (Auto) % Baso % (Auto) % Neut # (Auto) (1.40-6.50) K/uL Lymph # (Auto) (1.2-3.4) K/uL [place] # (Auto) (0.11-0.59) K/uL Eos # (Auto) (0-0.50) K/uL Baso # (Auto) (0-0.2) K/uL Immature Gran # (Auto) (0.01-0.20) K/uL Sodium (136-145) mmol/L Potassium (3.5-5.1) mmol/L Chloride (98-107) mmol/L Carbon Dioxide (21-32) mmol/L Anion Gap (3-11) BUN (6-23) mg/dl Creatinine (0.6-1.4) mg/dl Est Cr Clr Drug Dosing ml/min Est GFR ( Amer) ml/min Est GFR (Non-Af Amer) ml/min BUN/Creatinine Ratio (10-20) Glucose (70-99(Fasting)) mg/dl POC Glucose 88 111 H (70-99) mg/dl Calcium (8.5-10.1) mg/dl Total Bilirubin (0.2-1.0) mg/dl AST (13-39) U/L ALT (7-52) U/L Alkaline Phosphatase (34-104) U/L Total Protein (6.0-8.3) gm/dl Albumin (3.4-5.0) gm/dl Globulin (2.5-4.0) gm/dl Albumin/Globulin Ratio (0.9-2) Diagnostic Findings MRCP CLINICAL HISTORY: Elevated LFTs, abdominal pain TECHNIQUE: Utilizing a 1.5 Alexia magnet and dedicated coil, multiplanar, multiecho imaging of the upper abdomen was performed utilizing heavily T2 weighted pulsing sequences without IV contrast. COMPARISON STUDY: CT of the abdomen and pelvis and right upper quadrant ultrasound May 13, 2022. FINDINGS: There is no intra or extrahepatic biliary ductal dilatation. The common bile duct measures 5 mm in caliber. No common bile duct calculi are identified. Course and caliber of the main pancreatic duct is normal. No definite peripancreatic fluid. No peripancreatic fluid collections are present. Pancreatic glandular atrophy. No hepatic lesions are identified on unenhanced exam. The gallbladder is mildly distended. There is mild gallbladder wall thickening. No gallstones are identified. Unenhanced images of the spleen and adrenal glands are unremarkable. A few suspected left renal cysts measure up to 1.8 cm. There is a 5.6 cm right parapelvic cysts. Moderate right hydronephrosis is noted, similar to prior CT. There is no left hydronephrosis. Prominent retroperitoneal lymph nodes are similar to CT of July 27, 2020. Caliber of visualized small and large bowel are normal. IMPRESSION: 1. No biliary ductal dilatation. No common bile duct calculi. 2. Mild gallbladder distention. Mild gallbladder wall thickening. No gallstones identified. If indicated, a hepatobiliary scan could be obtained. 3. No change in moderate right hydronephrosis likely secondary to a right parapelvic cyst which exerts mass effect upon the right renal pelvis.
[2022-05-16] MEDS: ENOXAPARIN INJ 40 MG/0.4 ML SYR SQ SCH (20:09)
[2022-05-17 06:14] LABS: Basophils # (auto) 0.03 K/uL (0-0.2); Basophils % (auto) 0.3 %; Eosinophils # (auto) 0.26 K/uL (0-0.50); Eosinophils % (auto) 2.9 %; Hematocrit (blood only) 29.7 % (42.0-52.0); Hemoglobin 9.2 g/dl (14.0-18.0); Immature Granulocytes # (auto) 0.07 K/uL (0.01-0.20); Immature Granulocytes % (auto) 0.8 %; Lymphocytes % (auto) 6.8 %; Mean Corpuscular Hemoglobin 27.5 pg (25.0-34.0); Mean Corpuscular Volume 88.9 fL (80.0-100.0); Mean Platelet Volume 10.7 fL (9.4-12.4); Monocytes # (auto) 0.52 K/uL (0.11-0.59); Monocytes % (auto) 5.9 %; Neutrophils # (auto) 7.34 K/uL (1.40-6.50); Neutrophils % (auto) 83.3 %; Platelet Count 160 K/uL (130-400); RDW Coefficient of Variation 16.2 % (11.5-14.5); RDW Standard Deviation 53.1 fL (36.4-46.3); Red Blood Count 3.34 M/uL (4.70-6.10); White Blood Count 8.82 K/ul (4.8-10.8)
[2022-05-17 06:24] LABS: Albumin Globulin Ratio 1.2 (0.9-2); Albumin Level 3.4 gm/dl (3.4-5.0); BUN Creatinine Ratio 25.2 (10-20); Bilirubin,Total 0.7 mg/dl (0.2-1.0); Creatinine Clr Calc Pharmacy 49.2 ml/min; Est GFR (African American) 53.3 ml/min; Globulin 2.8 gm/dl (2.5-4.0); Potassium 4.1 mmol/L (3.5-5.1); Total Protein 6.2 gm/dl (6.0-8.3)
[2022-05-17] MEDS: BUDESONIDE 0.5 MG/2 ML VIAL (PULMICORT) INH SCH (06:54)
[2022-05-17] MEDS: FORMOTEROL 20 MCG/2 ML VIAL INH SCH (06:55)
--- NOTE | 2022-05-17 07:54 | Gastroenterology Progress Note ---
Date of Service May 16, 2022 Assessment & Plan (1) Dilated gallbladder: Plan: Dilated GB, elevated LFTs leukocytosis most suggestive and cholangitis which seems to be resolving as he apparently passed a gallstone. Continue low fat diet. If clinically declines (increased LFTs, leukocytosis, pain, abnormal gallbladder imaging) then will consider Axios stent placement. Explained to the pt that he may be able to avoid surgery and procedures, if above does not recur and he was happy w that possibility. Told he must seek medical care if pain recurs or if other signs of illness such as yellow eyes/skin, fevers. GI will sign off. Please recall if any of the above issues occur. Admission and Anticipated Discharge Date Admission Date: May 13, 2022 Subjective 77 yr male presented 2/11 w abd pain, el LFTs, leukocytosis. E Coli sepsis. Imaging w gallstones, mild CBD dilation and MRCP w/o bile duct abnormalities. Cholecystectomy and ERCP both defer due to pt improving and due to respiratory and cardiac comorbidities (CHF, COPD, Sleep apnea) is high risk for sedation. Pt w/o any pain - resolved in the ED. LFTs and WBC improving. Tolerated a regular consistency low fat diet yesterday. Pt would like to avoid procedures, surgeries if possible. Review of Systems Review of Systems: ROS: Gen: + generalized weakness - improved, No fevers, No weight loss Eyes: No eye redness, or pain, no recent vision changes Resp: No SOB, no cough Cardio: No palpitations/irregular beats, no chest pain GI: No abdominal pain, no nausea/vomiting (in the past 2 days) : Denies pain on urination Skin: No jaundice, itching or new rashes Physical Exam Constitutional: well developed, well nourished, + ill appearing (chronically), cooperative and + overweight Eyes: PERRL, conjunctivae normal, anicteric sclerae ENMT: external ear and nose normal, oropharynx normal Neck: trachea midline, no thyromegaly Respiratory: normal respiratory effort, lungs clear to auscultation (O2 at 3L/min; 91% O2 sat; not respiratory stress/effort) Cardiovascular: RRR, no murmur, no edema Gastrointestinal (Abdomen): normal bowel sounds, soft, nontender, no hepatosplenomegaly Musculoskeletal: no cyanosis or clubbing, extremities motor strength 5/5 Skin: no rashes, warm and dry Neurologic: PERRL, EOMI, accommodation nl, no face palsy, no dysarthria Psychiatric: A+Ox3, euthymic affect Lymphatic: no cervical or axillary lymphadenopathy Results & Data ([facility]) Vital Signs (Past 12 Hours) Vital Signs Temp Pulse Pulse Resp BP Pulse Ox O2 Del Method 05/16/22 11:26 36.9 C 84 19 152/76 H 93 Nasal Cannula 05/16/22 08:54 81 05/16/22 08:54 Room Air 05/16/22 08:12 36.9 C 87 20 172/81 H 94 Nasal Cannula 05/16/22 07:16 85 18 93 Nasal Cannula 05/16/22 07:13 81 05/16/22 03:33 81 18 163/70 H 92 Nasal Cannula O2 Flow Rate 05/16/22 11:26 3.0 05/16/22 08:54 05/16/22 08:54 05/16/22 08:12 3.0 05/16/22 07:16 3 05/16/22 07:13 05/16/22 03:33 Laboratory Results WBC 14->8, Hb 9.2, Hct 29.7, plts 160, Na 141, K 4.1, Cl 108, CO2 31, BUN 37 Cr 1.74, glucose 109 T Bili 0.7, AST 64, ALt 722, Alk PHos 277 Diagnostic Findings MRCP 05/13/22: 1. No biliary ductal dilatation. No common bile duct calculi. 2. Mild gallbladder distention. Mild gallbladder wall thickening. No gallstones identified. If indicated, a hepatobiliary scan could be obtained. 3. No change in moderate right hydronephrosis likely secondary to a right parapelvic cyst which exerts mass effect upon the right renal pelvis. US 05/13/22: 1. No gallstones or biliary ductal dilatation. 2. Moderately distended gallbladder with mild gallbladder wall thickening. However, no sonographic Farmer sign. No convincing evidence for acute cholecystitis. If indicated, a hepatobiliary scan could be obtained. 3. Right renal cyst with moderate hydronephrosis, as shown on CT. CTAP 05/13/22: 1. Moderate hydronephrosis likely secondary to a 6.2 cm right renal cyst which exerts mass effect on the right renal pelvis. This is similar to the prior study. 2. No left-sided hydronephrosis. 3. No definite bowel wall thickening or obstruction. 4. Normal appendix. 5. Mildly distended gallbladder. However, no gallbladder wall thickening. 6. Additional findings as described above.
[2022-05-17] MEDS ORDERED: BUDESONIDE 0.25 MG/2 ML VIAL (PULMICORT) INH SCH (08:00)
[2022-05-17] MEDS: INSULIN ASPART PER UNIT SC SCH ×2 (08:06→11:56)
[2022-05-17] MEDS ORDERED: ASPIRIN 81 MG ECTAB PO SCH (09:00)
[2022-05-17] MEDS ORDERED: hydroCHLOROthiazide 25 MG TAB PO SCH (09:00)
[2022-05-17] MEDS ORDERED: MAGNESIUM OXIDE 400 MG TAB PO SCH (09:00)
[2022-05-17] MEDS ORDERED: FERROUS SULFATE 325 MG TAB PO SCH (09:00)
[2022-05-17] MEDS: dilTIAZem HCL 240 MG CAPCR PO SCH (09:28)
[2022-05-17] MEDS: ERTAPENEM SODIUM 1,000 MG in SYRINGE 0 ML IV SCH (09:29)
[2022-05-17] MEDS: UMECLIDINIUM BROMIDE 62.5MCG/BLISTER 7 PUFFS/INHALER INH SCH (09:32)
--- NOTE | 2022-05-17 10:24 | Discharge Summary ---
Discharge Summary Date of Service May 17, 2022 Admission HPI Per Admitting Provider Kristopher Louie is a 77 year old male with severe COPD, pulmonary hypertension and chronic O2 use who presents to the ER with bilateral upper abdominal pain and shortness of breath. He reports feeling well yesterday with no symptoms. His symptoms started around 6:30 AM this morning with shortness of breath due to bilateral upper quadrant pain with associated nausea and vomiting without hemoptysis. He denies any fever, chills, chest pain, cough, sinus pain, nasal congestion, melena, diarrhea, constipation, bright red blood in stool. Never had a similar sensation previously. He was recently in the emergency room for SVT 5 days ago. He reports no recurrent episodes since then. In the ER he was noted to have elevated LFTs with subsequent ultrasound showing a moderately distended gallbladder with a normal size common bile duct. Reportedly the ER provider discussed with gastroenterology and recommended an MRCP, intravenous antibiotics and n.p.o. after midnight. Admission Exam Per Admitting Provider Constitutional: WD/WN, vitals as above Eyes: + anicteric sclerae; normal pupil size ENMT: external ear and nose normal, oropharynx normal Respiratory: normal respiratory effort, lungs clear to auscultation Cardiovascular: RRR, no murmur, no edema Gastrointestinal (Abdomen): Inspection/Auscultation: abdomen normal to inspection; abdomen not distended Percussion/Palpation: + abdomen tender (Epigastric) and abdomen soft; no guarding and abdomen not rigid Musculoskeletal: no cyanosis or clubbing, extremities motor strength 5/5 Skin: no rashes, warm and dry (No cellulitis) Neurologic: moves all extremities and awake; not confused Psychiatric: A+Ox3, euthymic affect Principal Dx & Hospital Course #1 = Principal Diagnosis (1) Elevated LFTs: Suspected secondary to cholecystitis and suspected choledocholithiasis (stone suspected to have passed without intervention). LFTs downtrending, TBili normal (previously elevated), WBC count downtrending. Appreciate Gastroenterology and Gen. Surg consultations, and case personally discussed with both services. No obstruction or acute cholecystitis seen on MRCP; suspect stone passed without intervention and this plus Abx is why patient's symptoms have resolved. No indication for ERCP/EUS given possible risks and given suspect stone is no longer present. Gen. Surg recommends deferring cholecystectomy at this time given improvement with Abx and bowel rest. Can consider drain in future if necessary if symptoms were to recur outside of the hospital. Ertapenem transitioned to Augmentin on 05/17 (BCx sensitive to such) to complete another 7 days of treatment. (2) Bacteremia: ESBL bacteremia noted on BCx collected 05/13, sensitive to ertapenem and amox/clav, started on ertapenem 05/14, and transitioned to Augmentin for additional week on discharge. (3) ESBL (extended spectrum beta-lactamase) producing bacteria infection: see above (4) SVT (supraventricular tachycardia): Currently stable. Continue diltiazem 240 mg p.o. twice daily. (5) Chronic respiratory failure with hypoxia: Currently stable. Baseline 3 L/min O2. (6) Severe chronic obstructive pulmonary disease: Currently stable. Continue Spiriva Respimat, Perforomist and budesonide nebulizers twice daily. (7) DM type 2 (diabetes mellitus, type 2): HbA1c 7.7 in February. Resume home medications Farxiga and metformin. (8) Coronary artery disease: Continue home aspirin. (9) Anemia: Appears to be at baseline. No overt bleeding. Hgb 9.2 on day of discharge. Continue iron supplement. (10) Hypertension: Resume home medications with PCP follow up. (11) WENDY (obstructive sleep apnea): Patient intolerant to CPAP. Plan Dispo: home with care by self and Discharge Exam Constitutional WD/WN, vitals as above Respiratory normal respiratory effort, lungs clear to auscultation saturating normally on baseline 3LNC Cardiovascular RRR, no murmur, no edema Gastrointestinal (Abdomen) normal bowel sounds, soft, nontender, no hepatosplenomegaly Psychiatric A+Ox3, euthymic affect Updated Medication List Medication Instructions Recorded Confirmed Type albuterol sulfate 90 mcg/actuation 2 puff inhalation Q4 PRN Wheezing 12/14/17 05/13/22 History aerosol inhaler atorvastatin 20 mg tablet 20 mg PO HS 12/14/17 05/13/22 History metformin 1,000 mg tablet 1,000 mg PO BID 12/14/17 05/13/22 History nitroglycerin 0.4 mg sublingual 0.4 mg sublingual DIRECTED PRN 12/14/17 05/13/22 History tablet Chest Pain Oxygen Home #1 ea 11/13/18 05/09/22 History aspirin 81 mg tablet,delayed 81 mg PO Q OTHER DAY 11/27/18 05/13/22 History release ascorbic acid (vitamin C) 1,000 mg 1 gm PO QAM 06/05/19 05/13/22 History tablet tiotropium bromide 2.5 2 puff inhalation QAM 10/16/20 05/13/22 History mcg/actuation mist for inhalation (Spiriva Respimat) hydrochlorothiazide 25 mg tablet 25 mg PO BID 07/07/21 05/13/22 History pantoprazole 20 mg tablet,delayed 10 mg PO DAILY 07/07/21 05/13/22 History release ferrous sulfate 325 mg (65 mg 325 mg PO Q OTHER DAY 08/11/21 05/13/22 History iron) tablet (Feosol) mecobalamin (vitamin B12) 1,000 1,000 mcg PO DAILY 10/30/21 05/13/22 History mcg chewable tablet sodium zirconium cyclosilicate 5 5 g PO Q OTHER DAY #30 ea 11/02/21 05/13/22 Rx gram oral powder packet (Lokelor) diltiazem HCl 240 mg 240 mg PO BID 12/20/21 05/13/22 History capsule,extended release 24 hr magnesium oxide 500 mg capsule 400 mg PO BID 12/27/21 05/13/22 History Portable Oxygen #1 ea 02/17/22 05/09/22 Rx budesonide 0.5 mg/2 mL suspension 0.25 mg inhalation BID #60 mL 02/17/22 05/13/22 Rx for nebulization arformoterol 15 mcg/2 mL solution 2 ml inhalation BID #120 mL 05/13/22 05/13/22 Rx for nebulization dapagliflozin 10 mg tablet 10 mg PO QAM 05/13/22 05/13/22 History (Farxiga) semaglutide 14 mg tablet (Rybelsus) 14 mg PO QAM 05/13/22 05/13/22 History amoxicillin 875 mg-potassium 1 tab PO BID #14 tabs 05/17/22 Rx clavulanate 125 mg tablet Hospital Stay Data Consultations 05/13/22 17:30 ED Decision to Admit Stat 05/13/22 22:45 Consult Gastroenterology Routine Consult General Surgery Routine Procedures Performed Operation Date: 05/16/22 09:20 <No data on this case meets the specified criteria> Diagnostic Imagining Performed 05/13/22 13:56 CT abd pelvis wo con Stat 05/13/22 14:56 US abdomen limited Stat 05/13/22 17:30 MR MRCP Stat 05/15/22 16:21 US upper EUS PACS images Routine Discharge Instructions Given to Patient (Per Discharging Provider) You were evaluated for belly and under-rib pain and found to have a gallbladder infection called cholecystitis. The belly doctor think you had a gallstone stuck, which has since passed. You were also evaluated by the surgical team, who felt we could hold off on gallbladder removal at this time. You were given antibiotics, which will continue for a 7 days after discharge and were sent to the [facility]. You should begin this this evening (05/17). You may need gallbladder surgery in the future but we want to avoid if possible. You will have follow up with GI in the near future. Their number is provided on this paperwork; if you aren't called by end of week for appointment please call their office. We also recommend you STOP your furosemide for now as your blood pressure have been good, and call Dr. Thomas and your cardiology office for further instructions regarding this medication. If you have return of the same belly pain or other urgent medical concerns, please return for evaluation. Total Time Total Time Spent Total Time Spent (In Minutes): 45 minutes Coding Level of Care Code HOSP INP/OBS DISCH >30 MIN Diagnoses Elevated LFTs R79.89 Bacteremia R78.81 ESBL (extended spectrum beta-lactamase) producing bacteria infection A49.9; Z16.12 SVT (supraventricular tachycardia) I47.1 Chronic respiratory failure with hypoxia J96.11 Severe chronic obstructive pulmonary disease J44.9 DM type 2 (diabetes mellitus, type 2) E11.9 Diabetes mellitus complication status: without complication Diabetes mellitus lobsterman insulin use: without lobsterman use Coronary artery disease I25.10 Associated angina: without angina Coronary Disease-Associated Artery/Lesion type: [place] artery [place] vs. transplanted heart: [place] heart Anemia D64.9 Anemia type: unspecified type Hypertension I10 Hypertension type: essential hypertension WENDY (obstructive sleep apnea) G47.33
--- NOTE | 2022-05-17 10:25 | Pharmacy Report ---
Pharmacy Glycemic Short Note 2 - Date of Service May 17, 2022 - Glycemic Short BSG Results (Last 24 hours): 05/16/22 05/16/22 05/16/22 11:24 16:33 18:47 Glucose POC Glucose 86 98 95 05/17/22 05/17/22 05:49 07:10 Glucose 114 H POC Glucose 109 H OUTPATIENT ANTIDIABETIC REGIMEN: * Farxiga 10 mg PO AM * Rebelsus 14 mg PO AM * Metformin 1000 mg PO BID * A1c: 7.7% (02/23/22) ASSESSMENT: 05/17: * Mr. Louie has barely required any insulin since admission secondary to NPO status. * A type 2 diabetic diet is now ordered and was tolerated for breakfast. * Will continue to follow and adjust Novolog as needed now that patient is eating. 05/14: * 77 year old male, admitted for bacteremia, elevated LFTs, IMP: Cholangitis ? cholecystitis? may need ERCP, on IV antibiotics at this time. * Patient has required only 4 units of insulin yesterday for BSG 215mg/dL, BSGs at goal all day today on 0 units of insulin, NPO at this time. * Continue CF/CR, hold basal until diet started. PLAN FOR INPATIENT GLYCEMIC CONTROL: * Hold outpatient oral diabetes medications * Basal insulin * None at this time * Bolus insulin * NovoLog per scale ACHS or Q6hrs while NPO * Goal Range: Low 110 mg/dL - High 140 mg/dL * Correction Factor: 25 mg/dL/unit * Nutritional / Prandial insulin per carb ratio of 1 unit per 8 grams CHO consumed
[2022-05-17] MEDS: PANTOprazole 40 MG in SYRINGE 0 ML IV SCH (11:50)
== END 2022-05-17 14:54 | disposition home or self-care (01) | DRG 872 ==
LOC: ED 12:14 → SUATTDRO 18:51 → 2E 18:51

== ENCOUNTER 2022-05-25 08:23 | Inpatient (IN) ==
--- NOTE | 2022-05-25 08:36 | Emergency Department Note ---
Impression & Plan Acute hypoxemic respiratory failure, Severe chronic obstructive pulmonary disease, Pneumonia ED Provider Note NAME: JENNYFER CHAVIS AGE: 77 SEX: M : 1945 ARRIVES VIA: Ambulance INFORMANT: Patient ED PROVIDER(S): Ok Galvez DO CHIEF COMPLAINT: shortness of breath HPI: Patient is a 77-year-old male who was recently admitted and discharged for bacteremia secondary to choledocholithiasis which resolved on its own. They recently stopped his Lasix and he was discharged home. Upon getting home he has become more short of breath. He notes increased swelling of his legs. Denies any belly pain, nausea, vomiting, or diarrhea. No dysuria, urgency, or frequency. Does have a history of severe COPD chronically on 3 L nasal cannula and he has had to call EMS and was found to be hypoxic at 80% on 3 L and was increased to 6 and transported in. He denies any chest pain. No dysuria, urgency, or frequency. Shortness of breath is worse with movement. PAST MEDICAL HISTORY:See Below PAST SURGICAL HISTORY:See Below FAMILY HISTORY:See Below SOCIAL HISTORY:See Below HOME MEDICATIONS:See Below ALLERGIES:See Below VITALS:See Below PHYSICAL EXAMINATION: GENERAL: Sitting up in bed, alert, disheveled, on 5 L nasal cannula EYE EXAM: normal conjunctiva. PERRL and EOM's grossly intact. OROPHARYNX: no exudate, no erythema, lips, buccal mucosa, and tongue normal and mucous membranes are moist NECK: supple, no nuchal rigidity, no adenopathy, non-tender LUNGS: Clear to auscultation. Normal chest wall mechanics HEART: no murmurs, S1 normal and S2 normal ABDOMEN: abdomen soft, non-tender, normo-active bowel sounds, no masses, no rebound or guarding. UPPER EXTREMITIES: upper extremities are grossly normal. LOWER EXTREMITIES: Pitting edema bilateral lower extremities NEURO EXAM: Normal sensorium, cranial nerves II-XII grossly intact, normal speech, no gross weakness of arms, no gross weakness of legs. MEDICAL DECISION MAKING: Patient is a 77-year-old male who presents ER for shortness of breath brought in for further evaluation. Upon arrival he is found to be hypoxic. IV was established blood work was obtained. Labs show mild leukocytosis 12,000. Mild anemia 10. Creatinine 1.8 slightly up from baseline of 1.4. LFTs bilirubin was unremarkable. Troponin was negative. Lipase was negative. Pro-Jarett was negative. Influenza COVID and RSV was negative. Chest x-ray with a likely right lower lobe infiltrate per my read. Patient was covered with IV Rocephin and azithromycin. Updated bedside. Remained on oxygen. Discussed with the hospitalist admitted for further work-up. External records were reviewed. Triage Nursing notes reviewed. Limited review of prior medical records performed Vital Signs: reviewed and remarkable for hypoxic Differential diagnosis: Differential diagnoses includes but is not limited to pneumonia, bronchitis, COPD/Asthma exacerbation, pneumothorax, pulmonary embolism, congestive heart failure, acute coronary syndrome ER treatment provided: See below Diagnostics interpreted by me include EKG and cardiac monitoring as listed below: -Cardiac Monitoring: An order was placed for continuous cardiac monitoring. The monitor shows a rate of 92 with sinus rhythm. -ECG: Sinus rhythm rate of 94 normal axis No PVCs QTc 480 -Laboratory studies:Interpreted by me as stated above in MDM and shown below. Imaging studies: Xrays: As interpreted by me: Right lower lobe infiltrate per my read CTs show: none Consultation(s): Discussed with the hospitalist for further evaluation treatment and management Dr. Diaz Echevarria Procedures:none Critical Care: I have personally spent 32 minutes of critical care time in the direct management of this patient. This includes bedside care, interpretation of diagnostic studies, and testing, discussion with consultants, patient, and family members, and other required patient management activities. This 32 minutes is in excess of all separately billable procedures. Past Med/Surg History Medical History (Updated 05/25/22 @ 13:46 by Ok Galvez DO) Abnormal CT scan, chest BPH with obstruction/lower urinary tract symptoms CAD (coronary artery disease) CKD (chronic kidney disease) stage 3, GFR 30-59 ml/min COPD (chronic obstructive pulmonary disease) not well controlled per pt > worse this time of year with humidity DM type 2 (diabetes mellitus, type 2) NIDDM H/O pulmonary emphysema History of arthritis History of cardioversion 2009> SVT History of heart attack pt unaware of this History of nicotine dependence Hyperlipidemia Hypertension Hypomagnesemia Iron deficiency anemia due to chronic blood loss Multiple pulmonary nodules determined by computed tomography of lung On home oxygen therapy 3 LPM continuous WENDY (obstructive sleep apnea) no cpap > O2 continuous Peripheral neuropathy Pneumonia Apr 2019 Pulmonary air trapping Pulmonary air trapping Renal cyst just monitoring Renal cyst SVT (supraventricular tachycardia) dx 2009> diltiazem for this > controlled Surgical History History of bone marrow biopsy July 2019 > checking due to anemia History of cardiac cath 2009 > no stents History of colonoscopy History of esophagogastroduodenoscopy (EGD) History of nasal surgery Status post cataract extraction of both eyes with insertion of intraocular lens [place] teeth extracted Family History Father Diabetes Mother Diabetes Hypertension Other Brain tumor Depression Stroke Social History Smoking Status: Former smoker Tobacco Type: Cigarettes Age Started Using Tobacco: 20; packs per day: 1.0; Second Hand Exposure: No; Hx Alcohol Use: No Hx Substance Use: No Preferred Language: Bangladeshi Communication Ability: Effective Floating Operator Required: No Beliefs That Will Affect Care: None Current Living Situation: Alone Feels Safe at Home: Yes Assistive Devices: Oxygen - Continuous Allergies Allergies Allergy/AdvReac Type Severity Reaction Status Date / Time ALYSSA Inhibitors Allergy Severe ANAPHYLAXIS Verified 05/21/22 08:38 Home Meds Home Medications Medication Instructions Recorded Confirmed albuterol sulfate 90 mcg/actuation 2 puff inhalation Q4 PRN Wheezing 12/14/17 05/25/22 aerosol inhaler atorvastatin 20 mg tablet 20 mg PO HS 12/14/17 05/25/22 metformin 1,000 mg tablet 1,000 mg PO BID 12/14/17 05/25/22 nitroglycerin 0.4 mg sublingual 0.4 mg sublingual DIRECTED PRN 12/14/17 05/25/22 tablet Chest Pain Oxygen Home #1 ea 11/13/18 05/09/22 aspirin 81 mg tablet,delayed 81 mg PO Q OTHER DAY 11/27/18 05/25/22 release ascorbic acid (vitamin C) 1,000 mg 1 gm PO QAM 06/05/19 05/25/22 tablet tiotropium bromide 2.5 2 puff inhalation QAM 10/16/20 05/25/22 mcg/actuation mist for inhalation (Spiriva Respimat) hydrochlorothiazide 25 mg tablet 25 mg PO BID 07/07/21 05/25/22 pantoprazole 20 mg tablet,delayed 10 mg PO DAILY 07/07/21 05/25/22 release ferrous sulfate 325 mg (65 mg 325 mg PO Q OTHER DAY 08/11/21 05/25/22 iron) tablet (Feosol) mecobalamin (vitamin B12) 1,000 1,000 mcg PO DAILY 10/30/21 05/25/22 mcg chewable tablet diltiazem HCl 240 mg 240 mg PO BID 12/20/21 05/25/22 capsule,extended release 24 hr magnesium oxide 500 mg capsule 400 mg PO BID 12/27/21 05/25/22 dapagliflozin 10 mg tablet 10 mg PO QAM 05/13/22 05/25/22 (Farxiga) semaglutide 14 mg tablet (Rybelsus) 14 mg PO QAM 05/13/22 05/25/22 furosemide 20 mg tablet 20 - 40 mg PO BID 05/19/22 05/25/22 Previous Rx's Medication Instructions Recorded sodium zirconium cyclosilicate 5 5 g PO Q OTHER DAY #30 ea 11/02/21 gram oral powder packet (Lokelma) Portable Oxygen #1 ea 02/17/22 budesonide 0.5 mg/2 mL suspension 0.25 mg inhalation BID #60 mL 02/17/22 for nebulization arformoterol 15 mcg/2 mL solution 2 ml inhalation BID #120 mL 05/13/22 for nebulization amoxicillin 875 mg-potassium 1 tab PO BID #14 tabs 05/17/22 clavulanate 125 mg tablet Results & Data (ED) Vital Signs Vital Signs - 24 hr 05/25/22 08:42 05/25/22 08:28 05/25/22 08:28 Temperature 37.2 C Temperature Source Oral Pulse Rate 91 H 86 84 Pulse Rate [Right Finger] Pulse Rate from SpO2 Sensor Pulse Rhythm Regular Regular Pulse Strength Normal Respiratory Rate 18 18 Respiratory Effort / Characteristics Non-Labored Spontaneous Respiratory Depth Normal Respiratory Pattern Regular Blood Pressure 142/69 H Blood Pressure Mean 93 Blood Pressure Position Lying Pulse Oximetry 98 98 Oxygen Delivery Method Nasal Cannula Nasal Cannula Oxygen Flow Rate 3 3 Sepsis Recent Fever Within 48 Hours No Sepsis New/Unexplained Change in Mental Status No Sepsis Action Taken by Nursing No Action Required 05/25/22 08:28 05/25/22 08:28 05/25/22 08:28 Temperature Temperature Source Pulse Rate Pulse Rate [Right Finger] Pulse Rate from SpO2 Sensor Pulse Rhythm Pulse Strength Respiratory Rate Respiratory Effort / Characteristics Non-Labored Spontaneous Respiratory Depth Normal Respiratory Pattern Regular Blood Pressure Blood Pressure Mean Blood Pressure Position Pulse Oximetry 88 L Oxygen Delivery Method Nasal Cannula Nasal Cannula Nasal Cannula Oxygen Flow Rate 3 3 3 Sepsis Recent Fever Within 48 Hours Sepsis New/Unexplained Change in Mental Status Sepsis Action Taken by Nursing 05/25/22 08:31 05/25/22 08:31 05/25/22 08:40 Temperature Temperature Source Pulse Rate 91 H 87 Pulse Rate [Right Finger] Pulse Rate from SpO2 Sensor 91 H 87 Pulse Rhythm Pulse Strength Respiratory Rate 19 17 Respiratory Effort / Characteristics Respiratory Depth Respiratory Pattern Blood Pressure 142/69 H Blood Pressure Mean 93 Blood Pressure Position Pulse Oximetry 92 98 Oxygen Delivery Method Oxygen Flow Rate Sepsis Recent Fever Within 48 Hours Sepsis New/Unexplained Change in Mental Status Sepsis Action Taken by Nursing 05/25/22 08:50 05/25/22 09:00 05/25/22 09:18 Temperature Temperature Source Pulse Rate 88 81 Pulse Rate [Right Finger] 81 Pulse Rate from SpO2 Sensor 89 81 Pulse Rhythm Pulse Strength Respiratory Rate 22 15 18 Respiratory Effort / Characteristics Non-Labored Spontaneous Respiratory Depth Respiratory Pattern Blood Pressure Blood Pressure Mean Blood Pressure Position Pulse Oximetry 97 98 98 Oxygen Delivery Method Nasal Cannula Oxygen Flow Rate 3 Sepsis Recent Fever Within 48 Hours Sepsis New/Unexplained Change in Mental Status Sepsis Action Taken by Nursing 05/25/22 12:56 05/25/22 13:35 05/25/22 13:37 Temperature Temperature Source Pulse Rate 80 Pulse Rate [Right Finger] 82 Pulse Rate from SpO2 Sensor Pulse Rhythm Pulse Strength Respiratory Rate 16 20 Respiratory Effort / Characteristics Non-Labored Spontaneous Respiratory Depth Respiratory Pattern Blood Pressure Blood Pressure Mean Blood Pressure Position Pulse Oximetry 97 94 Oxygen Delivery Method Nasal Cannula Nasal Cannula Oxygen Flow Rate 3 3 Sepsis Recent Fever Within 48 Hours Sepsis New/Unexplained Change in Mental Status Sepsis Action Taken by Nursing Laboratory Data 05/25/22 08:42 05/25/22 08:42 Lab Results 05/25/22 05/25/22 05/25/22 Range/Units 08:42 08:42 08:42 WBC 12.14 H (4.8-10.8) K/ul RBC 3.57 L (4.70-6.10) M/uL Hgb 9.9 L (14.0-18.0) g/dl Hct 31.7 L (42.0-52.0) % MCV 88.8 (80.0-100.0) fL MCH 27.7 (25.0-34.0) pg MCHC 31.2 L (32.0-36.0) g/dL RDW Std Deviation 54.0 H (36.4-46.3) fL RDW Coeff of Arnoldo 16.7 H (11.5-14.5) % Plt Count 383 (130-400) K/uL MPV 10.4 (9.4-12.4) fL Immature Gran % (Auto) 0.7 % Neut % (Auto) 82.6 % Lymph % (Auto) 9.1 % Dodge % (Auto) 5.4 % Eos % (Auto) 1.8 % Baso % (Auto) 0.4 % Neut # (Auto) 10.04 H (1.40-6.50) K/uL Lymph # (Auto) 1.10 L (1.2-3.4) K/uL Dodge # (Auto) 0.65 H (0.11-0.59) K/uL Eos # (Auto) 0.22 (0-0.50) K/uL Baso # (Auto) 0.05 (0-0.2) K/uL Immature Gran # (Auto) 0.08 (0.01-0.20) K/uL Sodium 139 (136-145) mmol/L Potassium 5.1 (3.5-5.1) mmol/L Chloride 101 (98-107) mmol/L Carbon Dioxide 34 H (21-32) mmol/L Anion Gap 4 (3-11) BUN 32 H (6-23) mg/dl Creatinine 1.82 H (0.6-1.4) mg/dl Est Cr Clr Drug Dosing 36.2 ml/min Est GFR ( Amer) 41.2 ml/min Est GFR (Non-Af Amer) 35.5 ml/min BUN/Creatinine Ratio 17.6 (10-20) Glucose 135 H (70-99(Fasting)) mg/dl POC Glucose (70-99) mg/dl Calcium 8.6 (8.5-10.1) mg/dl Total Bilirubin 0.7 (0.2-1.0) mg/dl AST 19 (13-39) U/L ALT 45 (7-52) U/L Alkaline Phosphatase 149 H (34-104) U/L Troponin I High Sens 13.0 (0-20) pg/ml B-Natriuretic Peptide (0-100) pg/ml Total Protein 6.9 (6.0-8.3) gm/dl Albumin 3.9 (3.4-5.0) gm/dl Globulin 3.0 (2.5-4.0) gm/dl Albumin/Globulin Ratio 1.3 (0.9-2) Lipase 36 (11-82) U/L Procalcitonin (0-0.5) ng/ml SARS-CoV-2 (PCR) NEGATIVE (Negative) Influenza Type A (PCR) Negative (Neg) Influenza Type B (PCR) Negative (Neg) RSV (RT-PCR) Negative (Neg) 05/25/22 05/25/22 05/25/22 Range/Units 08:42 08:42 12:54 WBC (4.8-10.8) K/ul RBC (4.70-6.10) M/uL Hgb (14.0-18.0) g/dl Hct (42.0-52.0) % MCV (80.0-100.0) fL MCH (25.0-34.0) pg MCHC (32.0-36.0) g/dL RDW Std Deviation (36.4-46.3) fL RDW Coeff of Arnoldo (11.5-14.5) % Plt Count (130-400) K/uL MPV (9.4-12.4) fL Immature Gran % (Auto) % Neut % (Auto) % Lymph % (Auto) % Dodge % (Auto) % Eos % (Auto) % Baso % (Auto) % Neut # (Auto) (1.40-6.50) K/uL Lymph # (Auto) (1.2-3.4) K/uL Dodge # (Auto) (0.11-0.59) K/uL Eos # (Auto) (0-0.50) K/uL Baso # (Auto) (0-0.2) K/uL Immature Gran # (Auto) (0.01-0.20) K/uL Sodium (136-145) mmol/L Potassium (3.5-5.1) mmol/L Chloride (98-107) mmol/L Carbon Dioxide (21-32) mmol/L Anion Gap (3-11) BUN (6-23) mg/dl Creatinine (0.6-1.4) mg/dl Est Cr Clr Drug Dosing ml/min Est GFR ( Amer) ml/min Est GFR (Non-Af Amer) ml/min BUN/Creatinine Ratio (10-20) Glucose (70-99(Fasting)) mg/dl POC Glucose 186 H (70-99) mg/dl Calcium (8.5-10.1) mg/dl Total Bilirubin (0.2-1.0) mg/dl AST (13-39) U/L ALT (7-52) U/L Alkaline Phosphatase (34-104) U/L Troponin I High Sens (0-20) pg/ml B-Natriuretic Peptide 93 (0-100) pg/ml Total Protein (6.0-8.3) gm/dl Albumin (3.4-5.0) gm/dl Globulin (2.5-4.0) gm/dl Albumin/Globulin Ratio (0.9-2) Lipase (11-82) U/L Procalcitonin 0.49 (0-0.5) ng/ml SARS-CoV-2 (PCR) (Negative) Influenza Type A (PCR) (Neg) Influenza Type B (PCR) (Neg) RSV (RT-PCR) (Neg) Administered Medications Insulin Aspart (Insulin Aspart Per Unit) 0 units SC ACHS RICHARD Stop: 06/24/22 11:29 Last Admin: 05/25/22 13:00 Dose: Not Given Documented By: BCN Discontinued Medications Albuterol (Albuterol 0.083% Nebu Soln 3 Ml Vial) 5 mg NEB NOW STA; Protocol Stop: 05/25/22 09:00 Last Admin: 05/25/22 09:17 Dose: 5 mg Documented By: NDC Budesonide (Budesonide 0.25 Mg/2 Ml Vial (Pulmicort)) 0.25 mg NEB ONCE STA Stop: 05/25/22 11:43 Last Admin: 05/25/22 13:32 Dose: 0.25 mg Documented By: NDC Diltiazem HCl (Diltiazem Hcl 240 Mg Capcr) 240 mg PO NOW STA Stop: 05/25/22 12:23 Last Admin: 02/22/23 12:49 Dose: 240 mg Documented By: CANDELARIO Formoterol Fumarate (Formoterol 20 Mcg/2 Ml Vial) 20 mcg NEB ONCE STA Stop: 05/25/22 11:48 Last Admin: 05/25/22 13:34 Dose: 20 mcg Documented By: JAIDA Furosemide (Furosemide 40 Mg/4 Ml Vial) 40 mg IV NOW STA Stop: 05/25/22 10:00 Last Admin: 05/25/22 10:21 Dose: 40 mg Documented By: SUNIL Ceftriaxone Sodium (Rocephin) 2,000 mg in 70 mls @ 140 mls/hr IV NOW STA Stop: 05/25/22 09:28 Last Infusion: 05/25/22 10:15 Dose: 0 mls/hr Documented By: Admin: 05/25/22 09:10 Dose: 140 mls/hr Documented By: CANDELARIO Azithromycin 500 mg/ Dextrose 255 mls @ 127.5 mls/hr IV NOW STA Stop: 05/25/22 10:58 Last Infusion: 05/25/22 11:28 Dose: 0 mls/hr Documented By: Admin: 05/25/22 09:26 Dose: 127.5 mls/hr Documented By: CANDELARIO Methylprednisolone (Methylprednisolone 125 Mg/2 Ml Vial) 60 mg IV NOW STA Stop: 05/25/22 09:00 Last Admin: 05/25/22 09:11 Dose: 60 mg Documented By: CANDELARIO Umeclidinium Minier (Umeclidinium Minier 62.5mcg/Blister 7 Puffs/Inhaler) 1 puffs INH NOW STA Stop: 05/25/22 11:50 Last Admin: 05/25/22 12:50 Dose: 1 puffs Documented By: CANDELARIO Imaging Data Radiologist's Impression: Chest X-Ray 05/25/22 08:31 XR chest 1V portable HISTORY: Chest pain, nonspecific COMPARISON: Chest 05/13/2022. FINDINGS: No pneumothorax. The cardiac silhouette is borderline enlarged. The upper lung zones remain clear. Emphysema again noted. Slight progression of the patchy right base airspace opacities which may represent atelectasis or a developing pneumonia. Interstitial thickening at the lung bases likely represent vascular crowding from the emphysema. No evidence for pulmonary edema. IMPRESSION: Slight progression of the patchy right base airspace opacities which may represent atelectasis or a developing pneumonia. ACT 112: Negative or not required by law. Electronically signed by: Rocco Logan M.D. 05/25/2022 10:12 AM Discharge Plan Visit Data Chief Complaint: Shortness of Breath/Dyspnea Stated Complaint: SOB ED Provider: Ok Galvez Discharge Problem: Acute hypoxemic respiratory failure, Severe chronic obstructive pulmonary disease, Pneumonia Forms Stand Alone Forms: My [facility] [employer] Prescriptions Prescriptions: No Action Lokelma 5 gram powder in packet 5 g PO Q OTHER DAY Qty: 30 2RF arformoterol 15 mcg/2 mL solution for nebulization 2 ml inhalation BID Qty: 120 3RF (DME) Oxygen Home Liters Per Minute See Dose Instructions .ROUTE .MEDSUPPLY Qty: 1 Rx Instructions: As directed magnesium oxide 500 mg capsule 400 mg PO BID hydrochlorothiazide 25 mg tablet 25 mg PO BID pantoprazole 20 mg tablet,delayed release (DR/EC) 10 mg PO DAILY ferrous sulfate [Feosol] 325 mg (65 mg iron) tablet 325 mg PO Q OTHER DAY budesonide 0.5 mg/2 mL suspension for nebulization 0.25 mg inhalation BID Qty: 60 5RF (DME) Portable Oxygen Misc See Rx Instructions .Route Qty: 1 0RF Rx Instructions: Portable oxygen concentrator at a flow rate of 4 L/min via nasal cannula. Length of need is 99 years. ascorbic acid (vitamin C) 1,000 mg tablet 1 gm PO QAM mecobalamin (vitamin B12) 1,000 mcg tablet,chewable 1,000 mcg PO DAILY atorvastatin 20 mg tablet 20 mg PO HS metformin 1,000 mg tablet 1,000 mg PO BID nitroglycerin 0.4 mg tablet, sublingual 0.4 mg Sublingual DIRECTED PRN (Reason: Chest Pain) Rx Instructions: 1 tab sublingual every 5 minutes as needed for chest pain albuterol sulfate 90 mcg/actuation HFA aerosol inhaler 2 puff Inhalation Q4 PRN (Reason: Wheezing) aspirin 81 mg tablet,delayed release (DR/EC) 81 mg PO Q OTHER DAY Patient Comments: 81 mg PO EVERY OTHER DAY; Farxiga 10 mg tablet 10 mg PO QAM Rybelsus 14 mg tablet 14 mg PO QAM amoxicillin-pot clavulanate 875-125 mg tablet 1 tab PO BID Qty: 14 0RF Spiriva Respimat 2.5 mcg/actuation mist 2 puff INHALATION QAM diltiazem HCl 240 mg capsule,extended release 24hr 240 mg PO BID furosemide 20 mg Tablet 20 - 40 mg PO BID Rx Instructions: 40mg in am, 20mg in pm Referrals Referrals: Diaz Thomas MD [Primary Care Provider] -
[2022-05-25] MEDS ORDERED: methylPREDNISolone 125 MG/2 ML VIAL IV STA (08:59)
[2022-05-25] MEDS ORDERED: cefTRIAXone SODIUM 2,000 MG/70 ML BAG IV STA (08:59)
[2022-05-25] MEDS ORDERED: ALBUTEROL 0.083% NEBU SOLN 3 ML VIAL NEB STA (08:59)
[2022-05-25] MEDS ORDERED: AZITHROMYCIN 500 MG in DEXTROSE 5% 250 ML IV STA (08:59)
[2022-05-25 09:18] LABS: Basophils # (auto) 0.05 K/uL (0-0.2); Basophils % (auto) 0.4 %; Eosinophils # (auto) 0.22 K/uL (0-0.50); Eosinophils % (auto) 1.8 %; Hematocrit (blood only) 31.7 % (42.0-52.0); Hemoglobin 9.9 g/dl (14.0-18.0); Immature Granulocytes # (auto) 0.08 K/uL (0.01-0.20); Immature Granulocytes % (auto) 0.7 %; Lymphocytes % (auto) 9.1 %; Mean Corpuscular Hemoglobin 27.7 pg (25.0-34.0); Mean Corpuscular Hgb Conc 31.2 g/dL (32.0-36.0); Mean Corpuscular Volume 88.8 fL (80.0-100.0); Mean Platelet Volume 10.4 fL (9.4-12.4); Monocytes # (auto) 0.65 K/uL (0.11-0.59); Monocytes % (auto) 5.4 %; Neutrophils # (auto) 10.04 K/uL (1.40-6.50); Neutrophils % (auto) 82.6 %; Platelet Count 383 K/uL (130-400); RDW Coefficient of Variation 16.7 % (11.5-14.5); Red Blood Count 3.57 M/uL (4.70-6.10); White Blood Count 12.14 K/ul (4.8-10.8)
[2022-05-25 09:36] LABS: Albumin Globulin Ratio 1.3 (0.9-2); Albumin Level 3.9 gm/dl (3.4-5.0); BUN Creatinine Ratio 17.6 (10-20); Bilirubin,Total 0.7 mg/dl (0.2-1.0); Calcium 8.6 mg/dl (8.5-10.1); Creatinine Clr Calc Pharmacy 36.2 ml/min; Est GFR (African American) 41.2 ml/min; Est GFR (Non-African American) 35.5 ml/min; Potassium 5.1 mmol/L (3.5-5.1); Total Protein 6.9 gm/dl (6.0-8.3)
[2022-05-25] MEDS ORDERED: FUROSEMIDE 40 MG/4 ML VIAL IV STA (09:59)
[2022-05-25 10:10] LABS: Influenza A virus by PCR Negative (Neg); Influenza B virus by PCR Negative (Neg); RSV by PCR Negative (Neg); SARS CoV2 RNA(COVID-19) Ceph NEGATIVE (Negative)
--- NOTE | 2022-05-25 10:12 | History & Physical Report ---
Date of Service May 25, 2022 Assessment & Plan (1) Acute on chronic respiratory failure with hypoxia: Plan: -Admit to med/tele -The patient is currently afebrile, hemodynamically stable, and now stable on his baseline 3L NC -The patient was experiencing increased SOB and CROWE over the past 3-4 days with increased BL LE edema -At this time the patient's increased CROWE and hypoxia with increased BL edema appear more likely to be caused from a COPD exacerbation and chronic venous stasis -It does not appear that the patient is in a CHF exacerbation as his chest xray is without significant volume overload, he is more wheezy than wet on lung exam, BNP today is improved at 98 compared to last admission, and his symptoms have improved after receiving a DuoNeb treatment -Suspect that some of his CROWE and LE edema are also due to deconditioning from his recent admission and non-compliance with CPAP due to claustrophobia -S/P 40 mg IV lasix in the ED, will hold all diretics at this time as it appears he is more intravascularly dry at this time and he currently has an RICHIE on CKD -S/P one dose of ceftriaxone and azithromycin in the ED, will continue with PO azithromycin for an additional 2 days for COPD exacerbation -Continue his home breathing treatments, incentive spirometry, flutter therapy, and prn DuoNebs -S/P 40 mg IV solu-medrol in the ED, continue with 40 mg IV daily x 2 days starting tomorrow -CXR was read as a possible pneumonia in the RLL, low suspicion at this time and procal is less than 0.50, will hold additional abx at this time -The patient does has a mild leukocytosis with left shift, was treated for ESBL bacteremia on last admission and received 3 additional doses of Ertapenem [facility] after discharge last week and also was taking Augmentin >Blood cultures were obtained in the ED, monitor for recurrence of his bacteremia -Monitor on tele and pulse oximetry, continue supplemental O2 to keep SpO2 between 89-92% -Am CBC, CMP, and mag -BL DEUCE stockings and Sub-Q heparin for DVT PPX (2) Acute kidney injury superimposed on CKD: Plan: -Cr today noted to be 1.82, baseline appears to be 1.4-1.5 -Likely due to being intravascularly dry as he does not examine volume overloaded -Hold all diuretics at this time and monitor his am renal function to see how he responds, will hold IV fluids at this time to avoid volume overload -Avoid nephrotoxic agents (3) Chronic diastolic CHF (congestive heart failure): Plan: -Hold diuretics for now with RICHIE (4) Coronary artery disease: Plan: -Continue aspirin (5) COPD, severe: Plan: -See acute on chronic hypoxic resp failure (6) Anemia, iron deficiency: Plan: -Stable -Continue ferrous sulfate and vitamin C (7) Hypertension: Plan: -Stable -Continue diltiazem and hold diuretics for now with his RICHIE (8) Hyperlipidemia: Plan: -Continue statin (9) WENDY (obstructive sleep apnea): Plan: -Does not use HS CPAP due to claustrophobia -Continue supplemental O2 Plan The patient was discussed with Dr. Echevarria at the time of the admission History of Present Illness Chief Complaint: SOB Primary Care Provider: Diaz Thomas MD Kristopher is a 77 year old male with a PMH significant for severe COPD with chronic hypoxemic respiratory failure on 3L NC at baseline, WENDY (not using CPAP), CAD, SVT, DM II, hyperlipidemia, stage 3 CKD, and anemia who presented to the [facility] ED on 05/25/22 with a chief complaint of increased SOB. In the ED the patient was found to be afebrile, hemodynamically stable, and reportedly hypoxic on his baseline 3L NC. Labs were remarkable for a leukocytosis of 12 with left shift of 10, stable Hgb of 9.9 with stable platelets of 383, cr of 1.82 (baseline appears to be 1.4-1.5), stable electrolytes, alk phos of 149 (down from 227 as of 05/17), high sensitivity trop of 13, covid/RSV/Influenza negative.. Chest x-ray was read as "Slight progression of the patchy right base airspace opacities which may represent atelectasis or a developing pneumonia." Prior to admission the patient was given an albuterol treatment, one dose of ceftriaxone and azithromycin, 60 mg IV methylprednisolone, and 40 mg IV Lasix. Per chart review, the patient was recently admitted to [facility] from 05/13-05/17 due to elevated LFTs suspected to be secondary to cholecystitis with choledocholithiasis. He was initially started on ceftriaxone and Flagyl, his blood cultures grew ESBL sensitive to Ertapenem and he was transitioned to Ertapenem. . His MRCP during this admission was negative for cholecystitis and biliary obstruction. GI and General Surgery were consulted and believed that his biliary stone had passed on its own resulting in improvement of LFTs and his s ymptoms. General surgery did not recommend cholecystectomy at that time as cholecystectomy at that time as the risks outweighed the benefits since he was clinically improving. He was transitioned from Ertapenem to Augmentin on discharge with instructions to complete a 7 day course. Of note, the patient's lasix and hydrochlorothiazide were held during his admission due to being clinically dry per the Hospital Medicine progress notes for that admission, however, the discharge summary does state to resume home medications on discharge. At the time of the exam the patient was resting in bed in no acute distress, currently saturating at 98% on his baseline 3L NC. He states that during his last admission he felt as though he was retaining much more fluid in his lower extremities while off his diuretics and on IV fluids. He states that his discharge instructions said to hold his lasix and continue his HCTZ. He was discharged on the and called his Receiving Distribution Station Operator (Dr. Enrique) on 05/18/[address] Dr. Enrique instructed him to resume his lasix with his HCTZ. Since 05/18 he was back on his normal dose of lasix, 40 mg PO in the am and 20 mg PO in the afternoon with 25 mg PO HCTZ BID. He has been taking his Augmentin as prescribed and has one more dose to complete as of today, he has been asymptomatic from a GI standpoint since discharge. For the past 3-4 days the patient has noticed significantly increased SOB, especially with exertion on his baseline oxygen. He denies recent fevers, chills, chest pain, productive cough, orthopnea/PND, abd pain, nausea, vomiting, diarrhea, dysuria, hematuria, melena, and recent trauma. He confirms that he has been eating and drinking well and trying to avoid excess sodium intake. This am he was so SOB that he had difficulty getting dressed and using his nebulizer machine, leading him to come into the ED. After receiving his initial treatments in the ED the patient feels his symptoms are improved compared to this am but not completely resolved. He mentions that after discharge he was instructed to come [facility] for 3 consecutive days to receive an IV antibiotic but was unsure of what antibiotic he received. I called the [facility] and they confirmed that the patient received 1000 mg IV Ertapenem on 05/19, 05/20, and 05/21. We discussed code status, the patient wishes to be a Full Code and for his daughter to make medical decisions for him if he could not make them himself. Please refer to Dr. Vazquez's attestation for any changes to the treatment Allergies Allergy/AdvReac Type Severity Reaction Status Date / Time ALYSSA Inhibitors Allergy Severe ANAPHYLAXIS Verified 05/21/22 08:38 Home Medications Medication Instructions Recorded Confirmed Type albuterol sulfate 90 mcg/actuation 2 puff inhalation Q4 PRN Wheezing 12/14/17 05/25/22 History aerosol inhaler atorvastatin 20 mg tablet 20 mg PO HS 12/14/17 05/25/22 History metformin 1,000 mg tablet 1,000 mg PO BID 12/14/17 05/25/22 History nitroglycerin 0.4 mg sublingual 0.4 mg sublingual DIRECTED PRN 12/14/17 05/25/22 History tablet Chest Pain Oxygen Home #1 ea 11/13/18 05/09/22 History aspirin 81 mg tablet,delayed 81 mg PO Q OTHER DAY 11/27/18 05/25/22 History release ascorbic acid (vitamin C) 1,000 mg 1 gm PO QAM 06/05/19 05/25/22 History tablet tiotropium bromide 2.5 2 puff inhalation QAM 10/16/20 05/25/22 History mcg/actuation mist for inhalation (Spiriva Respimat) hydrochlorothiazide 25 mg tablet 25 mg PO BID 07/07/21 05/25/22 History pantoprazole 20 mg tablet,delayed 10 mg PO DAILY 07/07/21 05/25/22 History release ferrous sulfate 325 mg (65 mg 325 mg PO Q OTHER DAY 08/11/21 05/25/22 History iron) tablet (Feosol) mecobalamin (vitamin B12) 1,000 1,000 mcg PO DAILY 10/30/21 05/25/22 History mcg chewable tablet sodium zirconium cyclosilicate 5 5 g PO Q OTHER DAY #30 ea 11/02/21 05/25/22 Rx gram oral powder packet (Lokelma) diltiazem HCl 240 mg 240 mg PO BID 12/20/21 05/25/22 History capsule,extended release 24 hr magnesium oxide 500 mg capsule 400 mg PO BID 12/27/21 05/25/22 History Portable Oxygen #1 ea 02/17/22 05/09/22 Rx budesonide 0.5 mg/2 mL suspension 0.25 mg inhalation BID #60 mL 02/17/22 05/25/22 Rx for nebulization arformoterol 15 mcg/2 mL solution 2 ml inhalation BID #120 mL 05/13/22 05/25/22 Rx for nebulization dapagliflozin 10 mg tablet 10 mg PO QAM 05/13/22 05/25/22 History (Farxiga) semaglutide 14 mg tablet (Rybelsus) 14 mg PO QAM 05/13/22 05/25/22 History amoxicillin 875 mg-potassium 1 tab PO BID #14 tabs 05/17/22 05/25/22 Rx clavulanate 125 mg tablet furosemide 20 mg tablet 20 - 40 mg PO BID 05/19/22 05/25/22 History Past Med/Surg History Medical History (Updated 05/26/22 @ 08:42 by James Perdue MD) Abnormal CT scan, chest BPH with obstruction/lower urinary tract symptoms CAD (coronary artery disease) CKD (chronic kidney disease) stage 3, GFR 30-59 ml/min COPD (chronic obstructive pulmonary disease) not well controlled per pt > worse this time of year with humidity DM type 2 (diabetes mellitus, type 2) NIDDM H/O pulmonary emphysema History of arthritis History of cardioversion 2009> SVT History of heart attack pt unaware of this History of nicotine dependence Hyperlipidemia Hypertension Hypomagnesemia Iron deficiency anemia due to chronic blood loss Multiple pulmonary nodules determined by computed tomography of lung On home oxygen therapy 3 LPM continuous WENDY (obstructive sleep apnea) no cpap > O2 continuous Peripheral neuropathy Pneumonia Apr 2019 Pulmonary air trapping Pulmonary air trapping Renal cyst just monitoring Renal cyst SVT (supraventricular tachycardia) dx 2009> diltiazem for this > controlled Surgical History History of bone marrow biopsy July 2019 > checking due to anemia History of cardiac cath 2009 > no stents History of colonoscopy History of esophagogastroduodenoscopy (EGD) History of nasal surgery Status post cataract extraction of both eyes with insertion of intraocular lens [place] teeth extracted Family History Father Diabetes Mother Diabetes Hypertension Other Brain tumor Depression Stroke Social History Smoking Status: Former smoker Tobacco Type: Cigarettes Age Started Using Tobacco: 20; packs per day: 1.0; Second Hand Exposure: No; Do You Dip or Chew Tobacco: No; Hx Alcohol Use: No Hx Substance Use: No Preferred Language: Pashto Communication Ability: Effective Anesthesia Technician Required: No Beliefs That Will Affect Care: None Current Living Situation: Alone Current Living Situation Comment: home alone Other Information That Helps Us Care for You: No Feels Safe at Home: Yes Safety Concerns: Feels Safe At This Time Assistive Devices: Oxygen - Continuous Review of Systems Review of Systems: Denies current fever, chills, headache, changes in vision, hearing, taste, and smell, chest pain,cough, abdominal pain, nausea, vomiting, diarrhea, hematemesis, melena, dysuria, hematuria, and recent falls. All systems have been reviewed and are otherwise negative. Physical Exam Physical Exam: Physical Exam: General: In no acute distress, stated age, well-nourished, non-toxic appearing HEENT: Normocephalic, atraumatic, no scleral icterus, pupils around round, symmetrical, and reactive to light, No JVD noted, NC in place, dry mucus membranes, trachea midline, no thyromegaly Chest/Pulm: No respiratory distress, symmetrical chest expansion, clear crackles noted in the BL lower lung lozoya with expriratory wheezing noted in all other lung lozoya Cardiac: RRR, no murmurs noted Abdomen: Negative for ascites and bruising, normoactive bowel sounds, soft, non-tender to palpation throughout Musculoskeletal: Symmetrical and without signs of acute trauma, upper and lower extremities with full ROM, no atrophy, spasticity, or flaccidity Extremities: Radial, dorsalis pedis, and posterior tibial pulses are intact and symmetrical, 2+ edema noted in the BL LE's Skin: Warm, dry, no rashes , lesions, or scars noted Neuro: Alert and oriented to person, place, month, year, and president, no focal defects, no tremors noted Psych: No acute distress, calm and cooperative during the exam Results & Data Results & Data ([facility]) Vital Signs (Past 12 Hours) Vital Signs Temp Pulse Pulse Resp BP Pulse Ox O2 Del Method 05/25/22 09:18 81 18 98 Nasal Cannula 05/25/22 09:00 81 15 98 05/25/22 08:50 88 22 97 05/25/22 08:40 87 17 98 05/25/22 08:31 91 H 19 92 05/25/22 08:31 142/69 H 05/25/22 08:28 88 L Nasal Cannula 05/25/22 08:28 Nasal Cannula 05/25/22 08:28 Nasal Cannula 05/25/22 08:28 84 18 98 Nasal Cannula 05/25/22 08:28 37.2 C 86 18 142/69 H 98 Nasal Cannula 05/25/22 08:42 91 H O2 Flow Rate 05/25/22 09:18 3 05/25/22 09:00 05/25/22 08:50 05/25/22 08:40 05/25/22 08:31 05/25/22 08:31 05/25/22 08:28 3 05/25/22 08:28 3 05/25/22 08:28 3 05/25/22 08:28 3 05/25/22 08:28 3 05/25/22 08:42 Laboratory Results Abnormal lab results 05/25/22 05/25/22 Range/Units 08:42 08:42 WBC 12.14 H (4.8-10.8) K/ul RBC 3.57 L (4.70-6.10) M/uL Hgb 9.9 L (14.0-18.0) g/dl Hct 31.7 L (42.0-52.0) % MCHC 31.2 L (32.0-36.0) g/dL RDW Std Deviation 54.0 H (36.4-46.3) fL RDW Coeff of [place] 16.7 H (11.5-14.5) % Neut # (Auto) 10.04 H (1.40-6.50) K/uL Lymph # (Auto) 1.10 L (1.2-3.4) K/uL [place] # (Auto) 0.65 H (0.11-0.59) K/uL Carbon Dioxide 34 H (21-32) mmol/L BUN 32 H (6-23) mg/dl Creatinine 1.82 H (0.6-1.4) mg/dl Glucose 135 H (70-99(Fasting)) mg/dl Alkaline Phosphatase 149 H (34-104) U/L Diagnostic Findings Chest X-Ray 05/25/22 08:31 XR chest 1V portable HISTORY: Chest pain, nonspecific COMPARISON: Chest 05/13/2022. FINDINGS: No pneumothorax. The cardiac silhouette is borderline enlarged. The upper lung zones remain clear. Emphysema again noted. Slight progression of the patchy right base airspace opacities which may represent atelectasis or a developing pneumonia. Interstitial thickening at the lung bases likely represent vascular crowding from the emphysema. No evidence for pulmonary edema. IMPRESSION: Slight progression of the patchy right base airspace opacities which may represent atelectasis or a developing pneumonia. ACT 112: Negative or not required by law. Electronically signed by: Rocco Logan M.D. 05/25/2022 10:12 AM ECG Additional Comments: Normal sinus rhythm Prolonged QT Abnormal ECG When compared with ECG of 13-MAY-2022 12:33, Criteria for Septal infarct are no longer Present ST no longer elevated in Inferior leads ST no longer depressed in Lateral leads T wave inversion no longer evident in Lateral leads Code Status & VTE Plan Code Status Full code VTE Prophylaxis Plan VTE Prophylaxis will be ordered: Yes Supervising Physician Co-Signing Physician Notes I personally saw and examined the patient. I verified all roca points and agree with Erwin Wise PA-C with the following exceptions and/or additions: 77 year old male PG Care Time/CCT Total # of Minutes Spent Total Time Spent with Patient: Total time spent is greater than 50% in coordination of care (as documented) at patient's floor/unit and/or counseling patient: Coding [place] [address] INT INP/OBS CARE 3/75MIN Patient Type Established Medical Decision Making High Complexity Diagnoses Acute on chronic respiratory failure with hypoxia J96.21 Acute kidney injury superimposed on CKD N17.9; N18.9 Chronic diastolic CHF (congestive heart failure) I50.32 Coronary artery disease I25.10 Associated angina: without angina Coronary Disease-Associated Artery/Lesion type: [place] artery [place] vs. transplanted heart: [place] heart COPD, severe J44.9 Anemia, iron deficiency D50.9 Hypertension I10 Hypertension type: essential hypertension Hyperlipidemia E78.5 Hyperlipidemia type: unspecified WENDY (obstructive sleep apnea) G47.33 (4) Coronary artery disease Associated angina: without angina Coronary Disease-Associated Artery/Lesion type: [place] artery [place] vs. transplanted heart: [place] heart Qualified Code(s): I25.10 - Atherosclerotic heart disease of [place] coronary artery without angina pectoris (7) Hypertension Hypertension type: essential hypertension Qualified Code(s): I10 - Essential (primary) hypertension (8) Hyperlipidemia Hyperlipidemia type: unspecified Qualified Code(s): E78.5 - Hyperlipidemia, unspecified
--- NOTE | 2022-05-25 10:24 | Electrocardiogram Report ---
Test Reason : Blood Pressure : / mmHG Vent. Rate : 094 BPM Atrial Rate : 094 BPM P-R Int : 172 ms QRS Dur : 098 ms QT Int : 384 ms P-R-T Axes : 074 078 063 degrees QTc Int : 480 ms Normal sinus rhythm Prolonged QT Abnormal ECG When compared with ECG of 13-MAY-2022 12:33, ST no longer elevated in Inferior leads ST no longer depressed in Lateral leads T wave inversion no longer evident in Lateral leads Confirmed by Rahat Seay ([id number]) on 05/25/2022 10:23:46 AM Referred By: REFERRED SELF Confirmed By:Chritsos Seay
[2022-05-25] MEDS ORDERED: GLUCOSE 40% GEL 15 GM TUBE PO PRN (10:57)
[2022-05-25] MEDS ORDERED: GLUCAGON FOR INJ 1 MG VIAL SQ PRN (10:57)
[2022-05-25] MEDS ORDERED: CARBOHYDRATES FOR HYPOGLYCEMIA PO PRN (10:57)
[2022-05-25] MEDS ORDERED: DEXTROSE 50% 50 ML SYRINGE IV PRN (10:57)
[2022-05-25] MEDS ORDERED: GLUCOSE 10 TAB/TUBE PO PRN (10:57)
[2022-05-25] MEDS ORDERED: ALBUT/IPRATROP 3MG/0.5MG NEB 3 ML VIAL NEB PRN ×2 (11:15→20:28)
[2022-05-25] MEDS ORDERED: BUDESONIDE 0.25 MG/2 ML VIAL (PULMICORT) NEB STA (11:42)
[2022-05-25] MEDS ORDERED: FORMOTEROL 20 MCG/2 ML VIAL NEB STA (11:47)
[2022-05-25] MEDS ORDERED: UMECLIDINIUM BROMIDE 62.5MCG/BLISTER 7 PUFFS/INHALER INH STA (11:49)
[2022-05-25] MEDS ORDERED: dilTIAZem HCL 240 MG CAPCR PO STA (12:22)
[2022-05-25] MEDS: INSULIN ASPART PER UNIT SC SCH ×3 (13:00→21:35)
[2022-05-25] MEDS ORDERED: PANTOprazole 40 MG TAB PO SCH (14:39)
[2022-05-25] MEDS ORDERED: ACETAMINOPHEN 325 MG TAB PO PRN (14:39)
[2022-05-25] MEDS ORDERED: ALBUTEROL HFA 8 GM INHALER INH PRN (14:39)
[2022-05-25] MEDS: PANTOprazole 40 MG TAB PO SCH (16:11)
[2022-05-25] MEDS: HEPARIN SOD 5,000 UNIT/0.5 ML VIAL SQ SCH ×2 (16:11→21:19)
[2022-05-25] MEDS: FORMOTEROL 20 MCG/2 ML VIAL INH SCH (19:01)
[2022-05-25] MEDS: BUDESONIDE 0.5 MG/2 ML VIAL (PULMICORT) INH SCH (19:09)
[2022-05-25] MEDS ORDERED: PHARMACY GLYCEMIC MGMT CONSULT PRN (20:23)
[2022-05-25] MEDS ORDERED: ARFORMOTEROL TART 15MCG/2ML VIAL INH SCH (21:00)
[2022-05-25] MEDS ORDERED: LANTUS PER UNIT CHARGE SQ ONE (21:00)
[2022-05-25] MEDS ORDERED: LANTUS PER UNIT CHARGE SQ SCH (21:00)
[2022-05-25] MEDS: ATORVASTATIN 20 MG TAB PO SCH (21:18)
[2022-05-25] MEDS: dilTIAZem HCL 240 MG CAPCR PO SCH (21:18)
[2022-05-25] MEDS: MAGNESIUM OXIDE 400 MG TAB PO SCH (21:19)
[2022-05-26] MEDS: INSULIN ASPART PER UNIT SC SCH ×6 (00:52→20:30)
[2022-05-26] MEDS: HEPARIN SOD 5,000 UNIT/0.5 ML VIAL SQ SCH ×3 (06:05→20:33)
--- NOTE | 2022-05-26 07:17 | Hospitalist Progress Note ---
Date of Service May 26, 2022 Assessment & Plan (1) Acute on chronic respiratory failure with hypoxia: Plan: -The patient is currently afebrile, hemodynamically stable, and now stable on his baseline 3L NC - Etiology likely multifactorial secondary to COPD exacerbation and pneumonia -S/P one dose of ceftriaxone and azithromycin in the ED, will continue with PO azithromycin and ceftriaxone for hospital acquired PNA -Continue his home breathing treatments, incentive spirometry, flutter therapy, and prn DuoNebs -S/P 40 mg IV solu-medrol in the ED,40 IV today transition to 40mg PO prednisone tomorrow with plan to taper -Monitor on tele and pulse oximetry, continue supplemental O2 to keep SpO2 between 89-92% (2) Acute kidney injury superimposed on CKD: Plan: -Cr on admission 1.82, baseline appears to be 1.4-1.5. - Down to 1.54 today; which is close to his baseline -Avoid nephrotoxic agents (3) Hospital acquired PNA: Plan: - CXR concern for PNA - Continue ceftriaxone and azithromycin (4) Chronic diastolic CHF (congestive heart failure): Plan: -Looking at past records/echos does not appear to have diagnosis of HFpEF - Willing continue this home Lasix dosing that he has been on chronic for LE edema (5) Coronary artery disease: Plan: -Continue aspirin (6) COPD, severe: Plan: -See acute on chronic hypoxic resp failure (7) Anemia, iron deficiency: Plan: -Stable -Continue ferrous sulfate and vitamin C (8) Hypertension: Plan: -Stable -Continue diltiazem (9) Hyperlipidemia: Plan: -Continue statin (10) WENDY (obstructive sleep apnea): Plan: -Does not use HS CPAP due to claustrophobia -Continue supplemental O2 Admission and Anticipated Discharge Date Admission Date: May 25, 2022 Supervising Physician Co-Signing Physician Notes Attending attestation Pt seen and examined in concert with Dr. Miller. In agreement with the documented findings as noted in the resident documentation with any exceptions or additions as noted here. Improved breathing and tolerating baseline O2 without complaint of worsening SOB at rest. Leg swelling persists - no HF diagnosis per patient nor records. On examination, S1/S2 nl RRR no MCG. Scattered wheezes with audible rales, RLL. Abd NT/ND BS+ve. 1+ pitting edema of the b/l LE to the knees. Acute on chronic hypoxic respiratory failure - baseline O2 use 3L NC COPD with acute exacerbation - transition to PO prednisone for taper in AM. Continue albuterol neb therapy and home inhaler regimen as noted. Bilateral lower extremity edema without HF diagnosis - echocardiogram as noted - will restart furosemide at home dose Else see resident documentation as noted. Subjective Doing well today. Feels less short of breath. Denies chest pain. Is tolerating good PO intake. Notes that the swelling in his legs has decreased. Review of Systems Review of Systems: As per above Physical Exam Physical Exam: Constitutional: well-appearing, no acute distress HEENT: NCAT, no conjunctival injection CV: regular rhythm, no murmur appreciated, extremities well-perfused, 2+ perip heral edema in LE B/L to mid calf Resp: Mild exp wheezing diffusely GI: soft, nondistended, nontender, BS normoactive MSK: no gross deformities appreciated Skin: warm, dry, no rash appreciated Neuro: alert, oriented, no focal neurologic deficit appreciated Results & Data Results & Data ([facility]) Vital Signs (Past 12 Hours) Vital Signs Temp Pulse Pulse Resp BP Pulse Ox O2 Del Method 05/25/22 22:00 71 05/26/22 03:45 36.6 C 68 18 156/72 H 95 Nasal Cannula 05/25/22 23:32 36.9 C 74 18 152/68 H 95 Nasal Cannula 05/25/22 20:00 Nasal Cannula 05/25/22 19:46 36.6 C 71 18 145/69 H 97 Nasal Cannula O2 Flow Rate 05/25/22 22:00 05/26/22 03:45 3 05/25/22 23:32 3 05/25/22 20:00 3 05/25/22 19:46 3 Resident Activity Tracking Resident Involvement: Resident Care Provided Care Provided: Adult Hospital Medicine (5) Coronary artery disease Associated angina: without angina Coronary Disease-Associated Artery/Lesion type: [place] artery [place] vs. transplanted heart: [place] heart Qualified Code(s): I25.10 - Atherosclerotic heart disease of [place] coronary artery without angina pectoris (8) Hypertension Hypertension type: essential hypertension Qualified Code(s): I10 - Essential (primary) hypertension (9) Hyperlipidemia Hyperlipidemia type: unspecified Qualified Code(s): E78.5 - Hyperlipidemia, unspecified
[2022-05-26] MEDS: FORMOTEROL 20 MCG/2 ML VIAL INH SCH ×2 (07:35→19:24)
[2022-05-26] MEDS: ALBUT/IPRATROP 3MG/0.5MG NEB 3 ML VIAL NEB SCH ×4 (07:43→19:24)
[2022-05-26] MEDS: BUDESONIDE 0.5 MG/2 ML VIAL (PULMICORT) INH SCH ×2 (07:43→19:25)
[2022-05-26 08:00] LABS: Hematocrit (blood only) 29.7 % (42.0-52.0); Hemoglobin 9.4 g/dl (14.0-18.0); Mean Corpuscular Hemoglobin 27.2 pg (25.0-34.0); Mean Corpuscular Hgb Conc 31.6 g/dL (32.0-36.0); Mean Corpuscular Volume 85.8 fL (80.0-100.0); Platelet Count 359 K/uL (130-400); RDW Coefficient of Variation 16.5 % (11.5-14.5); RDW Standard Deviation 50.5 fL (36.4-46.3); Red Blood Count 3.46 M/uL (4.70-6.10); White Blood Count 10.53 K/ul (4.8-10.8)
[2022-05-26] MEDS: AZITHROMYCIN 250 MG TAB PO SCH (08:20)
[2022-05-26] MEDS: PANTOprazole 40 MG TAB PO SCH (08:20)
[2022-05-26] MEDS: dilTIAZem HCL 240 MG CAPCR PO SCH ×2 (08:21→20:18)
[2022-05-26] MEDS: ASCORBIC ACID 500 MG TAB PO SCH (08:21)
[2022-05-26] MEDS: ASPIRIN 81 MG ECTAB PO SCH (08:21)
[2022-05-26] MEDS: MAGNESIUM OXIDE 400 MG TAB PO SCH ×2 (08:22→20:20)
[2022-05-26] MEDS: UMECLIDINIUM BROMIDE 62.5MCG/BLISTER 7 PUFFS/INHALER INH SCH (08:22)
[2022-05-26 08:36] LABS: Albumin Globulin Ratio 1.3 (0.9-2); Albumin Level 3.5 gm/dl (3.4-5.0); BUN Creatinine Ratio 20.1 (10-20); Bilirubin,Total 0.4 mg/dl (0.2-1.0); Calcium 8.2 mg/dl (8.5-10.1); Creatinine Clr Calc Pharmacy 44.9 ml/min; Est GFR (African American) 50.4 ml/min; Est GFR (Non-African American) 43.5 ml/min; Globulin 2.8 gm/dl (2.5-4.0); Magnesium 2.6 mg/dl (1.7-2.4); Potassium 5.4 mmol/L (3.5-5.1); Total Protein 6.3 gm/dl (6.0-8.3)
[2022-05-26] MEDS ORDERED: methylPREDNISolone 40 MG in SYRINGE 0 ML IV SCH (09:00)
[2022-05-26] MEDS ORDERED: NON-FORMULARY MEDICATION (Tiotropium Bromide [Spiriva Respimat] 2.5 mcg/actuation mist) INH SCH (09:00)
[2022-05-26] MEDS ORDERED: AZITHROMYCIN 250 MG TAB PO SCH (09:00)
[2022-05-26] MEDS ORDERED: LANTUS PER UNIT CHARGE SQ SCH ×2 (09:00→21:00)
--- NOTE | 2022-05-26 13:25 | Pharmacy Report ---
Pharmacy Glycemic Short Note 2 - Date of Service May 26, 2022 - Glycemic Short BSG Results (Last 24 hours): 05/25/22 05/25/22 05/26/22 16:38 19:52 00:46 Glucose POC Glucose 225 H 290 H 169 H 05/26/22 05/26/22 05/26/22 06:01 07:28 07:44 Glucose 144 H POC Glucose 157 H 162 H 05/26/22 11:43 Glucose POC Glucose 131 H OUTPATIENT ANTIDIABETIC REGIMEN: * Farxiga 10 mg daily * Rybelus 14 mg daily * metformin 1000 mg po bid * HbA1C = 7.7% (02/23/22) ASSESSMENT: * Mr Louie is a 77 y/o M with a PMH of T2DM who presents with hypoxia. He received Solu-Medrol 60 mg in the ER and was start on Solu-Medrol 40 mg IV daily. * BSGs on day of admission were [phone] and overnight were 169-157. Fasting today is 162 mg/dL. * Patient received Lantus 20 units yesterday evening plus Novolog 20 units. * Continue Lantus 20 units BID (full weight-based stress of 3) due to steroids and physiological needs. * Novolog weight-based stress of 3. PLAN FOR INPATIENT GLYCEMIC CONTROL: * Hold outpatient oral diabetes medications * Basal insulin * Lantus 20 units SQ BID * Bolus insulin * NovoLog per scale ACHS or Q6hrs while NPO * Goal Range: Low 110 mg/dL - High 140 mg/dL * Correction Factor: 20 mg/dL/unit * Nutritional / Prandial insulin per carb ratio of 1 unit per 6 grams CHO consumed
[2022-05-26] MEDS: cefTRIAXone SODIUM 2,000 MG/70 ML BAG IV SCH (15:39)
[2022-05-26] MEDS: ATORVASTATIN 20 MG TAB PO SCH (20:18)
[2022-05-26] MEDS ORDERED: FUROSEMIDE 20 MG TAB PO SCH (21:00)
[2022-05-27] MEDS: HEPARIN SOD 5,000 UNIT/0.5 ML VIAL SQ SCH ×3 (05:50→19:40)
[2022-05-27 07:12] LABS: Albumin Globulin Ratio 1.3 (0.9-2); Albumin Level 3.7 gm/dl (3.4-5.0); BUN Creatinine Ratio 22.3 (10-20); Bilirubin,Total 0.4 mg/dl (0.2-1.0); Calcium 8.3 mg/dl (8.5-10.1); Est GFR (Non-African American) 39.7 ml/min; Globulin 2.8 gm/dl (2.5-4.0); Potassium 5.1 mmol/L (3.5-5.1); Total Protein 6.5 gm/dl (6.0-8.3)
--- NOTE | 2022-05-27 07:13 | Hospitalist Progress Note ---
Date of Service May 27, 2022 Assessment & Plan (1) Acute on chronic respiratory failure with hypoxia: Plan: -Currently afebrile, hemodynamically stable, and now stable on his baseline 3L NC - Etiology likely secondary to COPD -will continue with PO azithromycin to complete coarse for COPD exacerbation -Continue his home breathing treatments, incentive spirometry, flutter therapy, and prn DuoNebs -continue 40mg PO prednisone -Monitor on tele and pulse oximetry, continue supplemental O2 to keep SpO2 between 89-92% (2) Acute kidney injury superimposed on CKD: Plan: -Cr on admission 1.82, baseline appears to be 1.4-1.5. -Creatine= 1.66 today -Avoid nephrotoxic agents (3) Hospital acquired PNA: Plan: - CXR concern for PNA - Will repeat CXR in morning (4) Chronic diastolic CHF (congestive heart failure): Plan: -Looking at past records/echos does not appear to have diagnosis of HFpEF - Willing continue this home Lasix dosing that he has been on chronic for LE edema (5) Coronary artery disease: Plan: -Continue aspirin (6) COPD, severe: Plan: -See acute on chronic hypoxic resp failure (7) Anemia, iron deficiency: Plan: -Stable -Continue ferrous sulfate and vitamin C (8) Hypertension: Plan: -Stable -Continue diltiazem (9) Hyperlipidemia: Plan: -Continue statin (10) WENDY (obstructive sleep apnea): Plan: -Does not use HS CPAP due to claustrophobia -Continue supplemental O2 Admission and Anticipated Discharge Date Admission Date: May 25, 2022 Supervising Physician Co-Signing Physician Notes I also saw the patient with the resident physician and confirmed roca portions of the history and physical examination. I agree with the impression and plan as noted in the resident documentation, and as summarized below. Upon our mid afternoon exam, the patient was resting in bed comfortably. He was on oxygen at 3 L/min, his reported home oxygen. He had no complaints. He was able to speak in full and complete sentences without pause. He had no cough. In general, he stated that he felt better than yesterday. Exam 145/71, 67, 18, 36.7, 97% on nasal cannula at 3 L/min Ple[place]. Alert. No distress. Heart regular rate and rhythm Lungs with expiratory wheeze throughout, he is surprisingly tight given his lack of symptoms. Trace to 1+ pitting edema bilateral lower extremities (baseline per patient) Data Hemoglobin 9.4, WBC 10.23 Sodium 136, potassium 5.1, BUN 37, creatinine 1.66 AST 10, ALT 28, alkaline phosphatase 126 Imaging Chest x-ray dated 05/25/2022 shows patchy right base airspace opacity, atelectasis versus developing pneumonia Impression and Plan Acute on chronic hypoxic respiratory failure Suspect primary driving force is COPD exacerbation, especially based on his lung exam today I do not think this represents a hospital-acquired pneumonia -he is improved overall without coverage for hospital-acquired pneumonia Repeat x-ray in the a.m., though suspect this may just represent atelectasis Continue prednisone Chest x-ray in a.m. He is at his home oxygen requirement As noted, pulmonary auscultation is surprisingly tight given his improved symptoms Will reexamine in a.m. for potential discharge Additional per resident documentation Subjective Doing well this morning. Short of breath improved. At his home oxygen requirement. Overall he is feeling well, able to walk hallways yesterday without issue. Tolerating good PO intake. Review of Systems Review of Systems: As per above Physical Exam Physical Exam: Constitutional: well-appearing, no acute distress HEENT: NCAT, no conjunctival injection CV: regular rhythm, no murmur appreciated, extremities well-perfused, 1+ peripheral edema in LE B/L to mid calf Resp: Exp wheezing diffusely GI: soft, nondistended, nontender, BS normoactive MSK: no gross deformities appreciated Skin: warm, dry, no rash appreciated Neuro: alert, oriented, no focal neurologic deficit appreciated Results & Data Results & Data ([facility]) Vital Signs (Past 12 Hours) Vital Signs Temp Pulse Pulse Resp BP Pulse Ox O2 Del Method 05/27/22 03:00 36.9 C 67 18 151/74 H 97 Nasal Cannula 05/26/22 23:00 36.9 C 74 20 152/75 H 96 Nasal Cannula 05/26/22 21:58 69 05/26/22 20:00 Nasal Cannula 05/26/22 19:26 72 18 95 Nasal Cannula O2 Flow Rate 05/27/22 03:00 2 05/26/22 23:00 2 05/26/22 21:58 05/26/22 20:00 3 05/26/22 19:26 3 Resident Activity Tracking Resident Involvement: Resident Care Provided Care Provided: Adult [facility] Medicine (5) Coronary artery disease Associated angina: without angina Coronary Disease-Associated Artery/Lesion type: [place] artery [place] vs. transplanted heart: [place] heart Qualified Code(s): I25.10 - Atherosclerotic heart disease of [place] coronary artery without angina pectoris (8) Hypertension Hypertension type: essential hypertension Qualified Code(s): I10 - Essential (primary) hypertension (9) Hyperlipidemia Hyperlipidemia type: unspecified Qualified Code(s): E78.5 - Hyperlipidemia, unspecified
[2022-05-27] MEDS: FORMOTEROL 20 MCG/2 ML VIAL INH SCH ×2 (07:18→19:23)
[2022-05-27] MEDS: ALBUT/IPRATROP 3MG/0.5MG NEB 3 ML VIAL NEB SCH ×4 (07:18→19:23)
[2022-05-27] MEDS: BUDESONIDE 0.5 MG/2 ML VIAL (PULMICORT) INH SCH ×2 (07:19→19:22)
[2022-05-27 07:21] LABS: Hematocrit (blood only) 29.7 % (42.0-52.0); Hemoglobin 9.4 g/dl (14.0-18.0); Mean Corpuscular Hemoglobin 27.3 pg (25.0-34.0); Mean Corpuscular Hgb Conc 31.6 g/dL (32.0-36.0); Mean Corpuscular Volume 86.3 fL (80.0-100.0); Mean Platelet Volume 10.4 fL (9.4-12.4); Platelet Count 386 K/uL (130-400); RDW Coefficient of Variation 16.5 % (11.5-14.5); RDW Standard Deviation 50.9 fL (36.4-46.3); Red Blood Count 3.44 M/uL (4.70-6.10); White Blood Count 10.23 K/ul (4.8-10.8)
[2022-05-27] MEDS: dilTIAZem HCL 240 MG CAPCR PO SCH ×2 (08:11→19:41)
[2022-05-27] MEDS: PANTOprazole 40 MG TAB PO SCH (08:12)
[2022-05-27] MEDS: AZITHROMYCIN 250 MG TAB PO SCH (08:12)
[2022-05-27] MEDS: predniSONE 20 MG TAB PO SCH (08:12)
[2022-05-27] MEDS: ASCORBIC ACID 500 MG TAB PO SCH (08:12)
[2022-05-27] MEDS: UMECLIDINIUM BROMIDE 62.5MCG/BLISTER 7 PUFFS/INHALER INH SCH (08:13)
[2022-05-27] MEDS: MAGNESIUM OXIDE 400 MG TAB PO SCH ×2 (08:13→19:40)
[2022-05-27] MEDS: INSULIN ASPART PER UNIT SC SCH ×4 (08:25→20:04)
[2022-05-27] MEDS ORDERED: FUROSEMIDE 20 MG TAB PO SCH ×2 (09:00→21:00)
[2022-05-27] MEDS ORDERED: LANTUS PER UNIT CHARGE SQ SCH ×2 (09:00→21:00)
[2022-05-27 09:10] LABS: Estimated Average Glucose 146 mg/dl; Hemoglobin A1C 6.7 % (4.5-5.6)
[2022-05-27] MEDS: FUROSEMIDE 20 MG TAB PO SCH (09:32)
[2022-05-27] MEDS: FERROUS SULFATE 325 MG TAB PO SCH (09:32)
--- NOTE | 2022-05-27 10:37 | Pharmacy Report ---
Pharmacy Glycemic Short Note 2 - Date of Service May 27, 2022 - Glycemic Short BSG Results (Last 24 hours): 05/26/22 05/26/22 05/26/22 11:43 16:28 20:06 Glucose POC Glucose 131 H 216 H 204 H 05/27/22 05/27/22 06:40 07:41 Glucose 140 H POC Glucose 128 H OUTPATIENT ANTIDIABETIC REGIMEN: * Farxiga 10 mg daily * Rybelus 14 mg daily * metformin 1000 mg po bid * HbA1C = 7.7% (02/23/22) ASSESSMENT: 05/27 * Kristopher received 83 units of insulin yesterday while on solu medrol 40mg IV once daily. * 40 units Lantus + 43 units Novolog * BSGs: 162, 131, 216, 204 * Patient remains on steroids but this has been transitioned to prednisone 40 mg daily. * Fasting BSG much improved today, 128 mg/dL. Will slightly reduce Lantus dose. * Patient experienced post prandial hyperglycemia yesterday. Will tighten carb ratio. 05/26 * Mr Louie is a 77 y/o M with a PMH of T2DM who presents with hypoxia. He received Solu-Medrol 60 mg in the ER and was start on Solu-Medrol 40 mg IV daily. * BSGs on day of admission were [phone] and overnight were 169-157. Fasting today is 162 mg/dL. * Patient received Lantus 20 units yesterday evening plus Novolog 20 units. * Continue Lantus 20 units BID (full weight-based stress of 3) due to steroids and physiological needs. * Novolog weight-based stress of 3. PLAN FOR INPATIENT GLYCEMIC CONTROL: * Hold outpatient oral diabetes medications * Basal insulin * Lantus 10 units this morning x 1, then 15-20 units SQ BID * Bolus insulin * NovoLog per scale ACHS or Q6hrs while NPO * Goal Range: Low 110 mg/dL - High 140 mg/dL * Correction Factor: 20 mg/dL/unit * Nutritional / Prandial insulin per carb ratio of 1 unit per 5 grams CHO consumed
[2022-05-27] MEDS: cefTRIAXone SODIUM 2,000 MG/70 ML BAG IV SCH (14:42)
[2022-05-27] MEDS: ATORVASTATIN 20 MG TAB PO SCH (19:41)
[2022-05-27] MEDS: LANTUS PER UNIT CHARGE SQ SCH (20:13)
[2022-05-28] MEDS: HEPARIN SOD 5,000 UNIT/0.5 ML VIAL SQ SCH (05:59)
[2022-05-28] MEDS: ALBUT/IPRATROP 3MG/0.5MG NEB 3 ML VIAL NEB SCH ×2 (06:52→11:09)
[2022-05-28] MEDS: FORMOTEROL 20 MCG/2 ML VIAL INH SCH (06:52)
[2022-05-28] MEDS: BUDESONIDE 0.5 MG/2 ML VIAL (PULMICORT) INH SCH (06:52)
[2022-05-28 07:58] LABS: Hematocrit (blood only) 30.9 % (42.0-52.0); Hemoglobin 9.9 g/dl (14.0-18.0); Mean Corpuscular Hemoglobin 27.8 pg (25.0-34.0); Mean Corpuscular Volume 86.8 fL (80.0-100.0); Mean Platelet Volume 10.2 fL (9.4-12.4); Platelet Count 379 K/uL (130-400); RDW Coefficient of Variation 16.6 % (11.5-14.5); RDW Standard Deviation 51.3 fL (36.4-46.3); Red Blood Count 3.56 M/uL (4.70-6.10); White Blood Count 9.43 K/ul (4.8-10.8)
[2022-05-28] MEDS: ASPIRIN 81 MG ECTAB PO SCH (08:11)
[2022-05-28] MEDS: FERROUS SULFATE 325 MG TAB PO SCH (08:11)
[2022-05-28] MEDS: predniSONE 20 MG TAB PO SCH (08:11)
[2022-05-28] MEDS: UMECLIDINIUM BROMIDE 62.5MCG/BLISTER 7 PUFFS/INHALER INH SCH (08:11)
[2022-05-28] MEDS: dilTIAZem HCL 240 MG CAPCR PO SCH (08:12)
[2022-05-28] MEDS: MAGNESIUM OXIDE 400 MG TAB PO SCH (08:12)
[2022-05-28] MEDS: FUROSEMIDE 20 MG TAB PO SCH (08:12)
[2022-05-28] MEDS: PANTOprazole 40 MG TAB PO SCH (08:12)
[2022-05-28] MEDS: ASCORBIC ACID 500 MG TAB PO SCH (08:12)
[2022-05-28 08:16] LABS: Albumin Globulin Ratio 1.3 (0.9-2); Albumin Level 3.6 gm/dl (3.4-5.0); BUN Creatinine Ratio 24.7 (10-20); Bilirubin,Total 0.4 mg/dl (0.2-1.0); Calcium 8.5 mg/dl (8.5-10.1); Creatinine Clr Calc Pharmacy 44.2 ml/min; Est GFR (African American) 48.9 ml/min; Est GFR (Non-African American) 42.2 ml/min; Globulin 2.8 gm/dl (2.5-4.0); Potassium 4.4 mmol/L (3.5-5.1); Total Protein 6.4 gm/dl (6.0-8.3)
[2022-05-28] MEDS: LANTUS PER UNIT CHARGE SQ SCH (08:22)
[2022-05-28] MEDS: INSULIN ASPART PER UNIT SC SCH ×2 (08:22→12:19)
--- NOTE | 2022-05-28 09:29 | XRay Report ---
XR chest 2V PA/lateral CLINICAL HISTORY: Pneumonia. COMPARISON STUDY: Chest CT March 29, 2022 and chest radiograph May 25, 2022. FINDINGS: Emphysema is noted. There is no pneumothorax. Trace bilateral pleural effusions are present . Right lower lung opacity has mildly improved. There may be minimal residual hazy bibasilar opacitie s. Cardiomediastinal silhouette is stable. IMPRESSION: 1. Interval improvement in right basilar opacity. Mild residual hazy bibasilar opacities with trace b ilateral pleural effusions. 2. Emphysema. ACT 112: Negative or not required by law. Electronically signed by: Seth Sandy M.D. 05/28/2022 9:27 AM
--- NOTE | 2022-05-28 10:55 | Discharge Summary ---
Date of Service May 28, 2022 Admission HPI Per Admitting Provider Kristopher is a 77 year old male with a PMH significant for severe COPD with chronic hypoxemic respiratory failure on 3L NC at baseline, WENDY (not using CPAP), CAD, SVT, DM II, hyperlipidemia, stage 3 CKD, and anemia who presented to the [facility] ED on 05/25/22 with a chief complaint of increased SOB. In the ED the patient was found to be afebrile, hemodynamically stable, and reportedly hypoxic on his baseline 3L NC. Labs were remarkable for a leukocytosis of 12 with left shift of 10, stable Hgb of 9.9 with stable platelets of 383, cr of 1.82 (baseline appears to be 1.4-1.5), stable elect rolytes, alk phos of 149 (down from 227 as of 05/17), high sensitivity trop of 13, covid/RSV/Influenza negative.. Chest x-ray was read as "Slight progression of the patchy right base airspace opacities which may represent atelectasis or a developing pneumonia." Prior to admission the patient was given an albuterol treatment, one dose of ceftriaxone and azithromycin, 60 mg IV methylprednisolone, and 40 mg IV Lasix. Per chart review, the patient was recently admitted to [facility] from 05/13-05/17 due to elevated LFTs suspected to be secondary to cholecystitis with choledocholithiasis. He was initially started on ceftriaxone and Flagyl, his blood cultures grew ESBL sensitive to Ertapenem and he was transitioned to Ertapenem. . His MRCP during this admission was negative for cholecystitis and biliary obstruction. GI and General Surgery were consulted and believed that his biliary stone had passed on its own resulting in improvement of LFTs and his symptoms. General surgery did not recommend cholecystectomy at that time as cholecystectomy at that time as the risks outweighed the benefits since he was clinically improving. He was transitioned from Ertapenem to Augmentin on dis charge with instructions to complete a 7 day course. Of note, the patient's lasix and hydrochlorothiazide were held during his admission due to being clinically dry per the Hospital Medicine progress notes for that admission, however, the discharge summary does state to resume home medications on discharge. At the time of the exam the patient was resting in bed in no acute distress, currently saturating at 98% on his baseline 3L NC. He states that during his last admission he felt as though he was retaining much more fluid in his lower extremities while off his diuretics and on IV fluids. He states that his discharge instructions said to hold his lasix and continue his HCTZ. He was discharged on the and called his Plant Engineering Supervisor (Dr. Enrique) on 05/18/[address] Enrique instructed him to resume his lasix with his HCTZ. Since 05/18 he was back on his normal dose of lasix, 40 mg PO in the am and 20 mg PO in the afternoon with 25 mg PO HCTZ BID. He has been taking his Augmentin as prescribed and has one more dose to complete as of today, he has been asymptomatic from a GI standpoint since discharge. For the past 3-4 days the patient has noticed significantly increased SOB, especially with exertion on his baseline oxygen. He denies recent fevers, chills, chest pain, productive cough, orthopnea/PND, abd pain, nausea, vomiting, diarrhea, dysuria, hematuria, melena, and recent trauma. He confirms that he has been eating and drinking well and trying to avoid excess sodium intake. This am he was so SOB that he had difficulty getting dressed and using his nebulizer machine, leading him to come into the ED. After receiving his initial treatments in the ED the patient feels his symptoms are improved compared to this am but not completely resolved. He mentions that after discharge he was instructed to come to the [facility] for 3 consecutive days to receive an IV antibiotic but was unsure of what antibiotic he received. I called the [facility] and they confirmed that the patient received 1000 mg IV Ertapenem on 05/19, 05/20, and 05/21. We discussed code status, the patient wishes to be a Full Code and for his daughter to make medical decisions for him if he could not make them himself. Please refer to Dr. Vazquez's attestation for any changes to the treatment Principal Diagnosis COPD Exacerbation Discharge Exam Constitutional: well-appearing, no acute distress HEENT: NCAT, no conjunctival injection CV: regular rhythm, no murmur appreciated, extremities well-perfused, 1+ peripheral edema in LE B/L to mid calf Resp: Exp wheezing diffusely; improved from yesterday GI: soft, nondistended, nontender, BS normoactive MSK: no gross deformities appreciated Skin: warm, dry, no rash appreciated Neuro: alert, oriented, no focal neurologic deficit appreciated Discharge Data Allergies Allergy/AdvReac Type Severity Reaction Status Date / Time ALSYSA Inhibitors Allergy Severe ANAPHYLAXIS Verified 05/21/22 08:38 Consultations 05/25/22 09:59 ED Decision to Admit Stat Ordered Studies Laboratory Results WBC 9.43 K/ul (4.8-10.8) 05/28/22 07:02 RBC 3.56 M/uL (4.70-6.10) L 05/28/22 07:02 Hgb 9.9 g/dl (14.0-18.0) L 05/28/22 07:02 Hct 30.9 % (42.0-52.0) L 05/28/22 07:02 MCV 86.8 fL (80.0-100.0) 05/28/22 07:02 MCH 27.8 pg (25.0-34.0) 05/28/22 07:02 MCHC 32.0 g/dL (32.0-36.0) 05/28/22 07:02 RDW Std Deviation 51.3 fL (36.4-46.3) H 05/28/22 07:02 RDW Coeff of Arnoldo 16.6 % (11.5-14.5) H 05/28/22 07:02 Plt Count 379 K/uL (130-400) 05/28/22 07:02 MPV 10.2 fL (9.4-12.4) 05/28/22 07:02 Immature Gran % (Auto) 0.7 % 05/25/22 08:42 Neut % (Auto) 82.6 % 05/25/22 08:42 Lymph % (Auto) 9.1 % 05/25/22 08:42 [place] % (Auto) 5.4 % 05/25/22 08:42 Eos % (Auto) 1.8 % 05/25/22 08:42 Baso % (Auto) 0.4 % 05/25/22 08:42 Neut # (Auto) 10.04 K/uL (1.40-6.50) H 05/25/22 08:42 Lymph # (Auto) 1.10 K/uL (1.2-3.4) L 05/25/22 08:42 [place] # (Auto) 0.65 K/uL (0.11-0.59) H 05/25/22 08:42 Eos # (Auto) 0.22 K/uL (0-0.50) 05/25/22 08:42 Baso # (Auto) 0.05 K/uL (0-0.2) 05/25/22 08:42 Immature Gran # (Auto) 0.08 K/uL (0.01-0.20) 05/25/22 08:42 Sodium 137 mmol/L (136-145) 05/28/22 07:02 Potassium 4.4 mmol/L (3.5-5.1) 05/28/22 07:02 Chloride 101 mmol/L (98-107) 05/28/22 07:02 Carbon Dioxide 33 mmol/L (21-32) H 05/28/22 07:02 Anion Gap 3 (3-11) 05/28/22 07:02 BUN 39 mg/dl (6-23) H 05/28/22 07:02 Creatinine 1.58 mg/dl (0.6-1.4) H 05/28/22 07:02 Est Cr Clr Drug Dosing 44.2 ml/min 05/28/22 07:02 Est GFR ( Amer) 48.9 ml/min 05/28/22 07:02 Est GFR (Non-Af Amer) 42.2 ml/min 05/28/22 07:02 BUN/Creatinine Ratio 24.7 (10-20) H 05/28/22 07:02 Glucose 101 mg/dl (70-99(Fasting)) H 05/28/22 07:02 POC Glucose 128 mg/dl (70-99) H 05/28/22 10:58 Estimat Average Glucose 146 mg/dl 05/27/22 06:40 Hemoglobin A1c 6.7 % (4.5-5.6) H 05/27/22 06:40 Calcium 8.5 mg/dl (8.5-10.1) 05/28/22 07:02 Magnesium 2.6 mg/dl (1.7-2.4) H 05/26/22 07:44 Total Bilirubin 0.4 mg/dl (0.2-1.0) 05/28/22 07:02 AST 11 U/L (13-39) L 05/28/22 07:02 ALT 25 U/L (7-52) 05/28/22 07:02 Alkaline Phosphatase 112 U/L (34-104) H 05/28/22 07:02 Troponin I High Sens 13.0 pg/ml (0-20) 05/25/22 08:42 B-Natriuretic Peptide 93 pg/ml (0-100) 05/25/22 08:42 Total Protein 6.4 gm/dl (6.0-8.3) 05/28/22 07:02 Albumin 3.6 gm/dl (3.4-5.0) 05/28/22 07:02 Globulin 2.8 gm/dl (2.5-4.0) 05/28/22 07:02 Albumin/Globulin Ratio 1.3 (0.9-2) 05/28/22 07:02 Lipase 36 U/L (11-82) 05/25/22 08:42 Procalcitonin 0.49 ng/ml (0-0.5) 05/25/22 08:42 SARS-CoV-2 (PCR) NEGATIVE (Negative) 05/25/22 08:42 Influenza Type A (PCR) Negative (Neg) 05/25/22 08:42 Influenza Type B (PCR) Negative (Neg) 05/25/22 08:42 RSV (RT-PCR) Negative (Neg) 05/25/22 08:42 Impressions Chest X-Ray 05/28/22 08:00 XR chest 2V PA/lateral CLINICAL HISTORY: Pneumonia. COMPARISON STUDY: Chest CT March 29, 2022 and chest radiograph May 25, 2022. FINDINGS: Emphysema is noted. There is no pneumothorax. Trace bilateral pleural effusions are present. Right lower lung opacity has mildly improved. There may be minimal residual hazy bibasilar opacities. Cardiomediastinal silhouette is stable. IMPRESSION: 1. Interval improvement in right basilar opacity. Mild residual hazy bibasilar opacities with trace bilateral pleural effusions. 2. Emphysema. ACT 112: Negative or not required by law. Electronically signed by: Seth Sandy M.D. 05/28/2022 9:27 AM Hospital Course (1) Acute on chronic respiratory failure with hypoxia: -Currently afebrile, hemodynamically stable, and now stable on his baseline 3L NC - Etiology likely secondary to COPD exacerbation -Completed 3 days of azithromycin and ceftriaxone -Continue his home breathing treatments, incentive spirometry, flutter therapy, and prn DuoNebs -Plan to discharge on 40mg prednisone x 5 days, 20mg x 5 days (2) Acute kidney injury superimposed on CKD: -Cr on admission 1.82, baseline appears to be 1.4-1.5. -Returned to baseline (3) Hospital acquired PNA: - CXR concern for PNA vs atelectasis - Repeat chest CXR with interval improvement (4) Chronic diastolic CHF (congestive heart failure): -Looking at past records/echos does not appear to have diagnosis of HFpEF - Willing continue this home Lasix dosing that he has been on chronic for LE edema (5) Coronary artery disease: -Continue aspirin (6) COPD, severe: -See acute on chronic hypoxic resp failure (7) Anemia, iron deficiency: -Stable -Continue ferrous sulfate and vitamin C (8) Hypertension: -Stable -Continue home medications diltiazem, HCTZ (9) Hyperlipidemia: -Continue statin (10) WENDY (obstructive sleep apnea): -Does not use HS CPAP due to claustrophobia -Continue supplemental O2 Total Time Total Time Spent Total Time Spent (In Minutes): I spent 30 minutes seeing the patient, reviewing outpatient records, and documentation. Discharge Plan Discharge Items Patient Disposition: Home - Self-Care Reason For Visit: SOB Discharge Diagnosis: COPD Exacerbation Activity: Per Instructions section Non-emergency contact: Primary Care Provider Call non-emergency contact if: you have any medication questions, your symptoms worsen and you have a fever Follow-up/Referrals: Diaz Thomas MD [Primary Care Provider] - (PLEASE CALL YOUR PRIMARY CARE PROVIDER TO SCHEDULE A DISCHARGE FOLLOW-UP APPOINTMENT WITHIN 7-10 DAYS.) Diet: Regular Addtl Attending Provider Instructions: You were admitted to the hospital for shortness of breath secondary to COPD exacerbation and possible pneumonia. We treated you with both steroids and antibiotics. We are going to send a prescription for prednisone to your pharmacy. We would like you to take 40mg for 5 days and then 20mg for 5 days. You completed the coarse of antibiotics while you were here, so there is no need to take any more once you get home. We did not make any other changes to your home medications, so please continue to take them as you were. If you begin to develop increased shortness of breath, fever/chills or chest pain you should call your primary care doctor or go back to the ER. A discharge summary will be sent to your primary care physician to ensure continuity of care. Please bring this discharge summary with you to your next office appointment so that your provider can review it at that time. Follow-up appointments: We have requested a follow-up appointment with your primary care physician within one week of discharge. Please call their office if you do not hear from them. Pending Studies at Discharge: No Stand-Alone Forms: My [facility] Medications and DC Order Prescriptions: New prednisone 20 mg tablet 20 mg PO DAILY Qty: 15 0RF Rx Instructions: Take 40mg (2 tabs) for 5 days and then 20mg (1 tab) for 5 days. Continued Lokelma 5 gram powder in packet 5 g PO Q OTHER DAY Qty: 30 2RF arformoterol 15 mcg/2 mL solution for nebulization 2 ml inhalation BID Qty: 120 3RF (DME) Oxygen Home Liters Per Minute See Dose Instructions .ROUTE .MEDSUPPLY Qty: 1 Rx Instructions: As directed magnesium oxide 500 mg capsule 400 mg PO BID hydrochlorothiazide 25 mg tablet 25 mg PO BID pantoprazole 20 mg tablet,delayed release (DR/EC) 10 mg PO DAILY ferrous sulfate [Feosol] 325 mg (65 mg iron) tablet 325 mg PO Q OTHER DAY budesonide 0.5 mg/2 mL suspension for nebulization 0.25 mg inhalation BID Qty: 60 5RF (DME) Portable Oxygen Misc See Rx Instructions .Route Qty: 1 0RF Rx Instructions: Portable oxygen concentrator at a flow rate of 4 L/min via nasal cannula. Length of need is 99 years. ascorbic acid (vitamin C) 1,000 mg tablet 1 gm PO QAM mecobalamin (vitamin B12) 1,000 mcg tablet,chewable 1,000 mcg PO DAILY atorvastatin 20 mg tablet 20 mg PO HS metformin 1,000 mg tablet 1,000 mg PO BID nitroglycerin 0.4 mg tablet, sublingual 0.4 mg Sublingual DIRECTED PRN (Reason: Chest Pain) Rx Instructions: 1 tab sublingual every 5 minutes as needed for chest pain albuterol sulfate 90 mcg/actuation HFA aerosol inhaler 2 puff Inhalation Q4 PRN (Reason: Wheezing) aspirin 81 mg tablet,delayed release (DR/EC) 81 mg PO Q OTHER DAY Patient Comments: 81 mg PO EVERY OTHER DAY; Farxiga 10 mg tablet 10 mg PO QAM Rybelsus 14 mg tablet 14 mg PO QAM Spiriva Respimat 2.5 mcg/actuation mist 2 puff INHALATION QAM diltiazem HCl 240 mg capsule,extended release 24hr 240 mg PO BID furosemide 20 mg Tablet 20 - 40 mg PO BID Rx Instructions: 40mg in am, 20mg in pm Discontinued amoxicillin-pot clavulanate 875-125 mg tablet 1 tab PO BID Qty: 14 0RF Discharge Orders: Discharge Order (Routine); Ordered 05/28/22 Ordered By: Loraine Mcneill/Other Patient Handouts: Managing Type 2 Diabetes Admission Data Admit Date/Time: 05/25/22 10:56 Attending Provider: Nathan Triplett Admit Provider: Diaz Echevarria Primary Care Provider: Diaz Thomas Other Providers: Diaz Echevarria Other Interventions: Discharge Summary Assessment (RN) Last Done: 05/28/22 13:06 Supervising Physician Co-Signing Physician Notes I also saw the patient with the resident physician and confirmed roca portions of the history and physical examination. I agree with the impression and plan as noted in the resident documentation, and as summarized below. Upon our midmorning exam, the patient is seated in bed. He has no complaints. He feels that his breathing is at his baseline. He speaks in full complete sentences without pause. No cough. Exam 162/76, 78, 17, 36.6, 90% on nasal cannula 3 L/min [place]. Alert. No distress. Heart regular rate and rhythm Lungs sound much better compared to my exam yesterday; increased air movement, wheezing is more mid to end expiratory phase. In reviewing his outpatient records, I suspect what we hear today is his baseline or near-baseline exam. Trace to 1+ pitting edema bilateral lower extremities, which actually looks a little better compared to yesterday Data Hemoglobin 9.9, WBC 9.43 BUN 39, creatinine 1.58 Imaging Chest x-ray dated 05/28/2022 shows interval improvement in the right basilar opacity. Impression and Plan Acute on chronic hypoxic respiratory failure Suspect primary driving force was COPD exacerbation, especially based on his lung exam and review of his outside pulmonary records He is back at his baseline in terms of how he feels; his exam today is much improved when compared to yesterday, and I suspect this represents his baseline exam. Repeat chest x-ray today shows some radiographic resolution I do not think this represents a hospital-acquired pneumonia -he is improved overall without coverage for hospital-acquired pneumonia Home discharge today Prolonged prednisone taper Follow-up with PCP He would probably need to reschedule his PFTs until after he is off of his steroid taper Additional per resident documentation
== END 2022-05-28 14:40 | disposition home or self-care (01) | DRG 190 ==
LOC: ED 08:23 → 2W 10:56 → SUATTDRO 10:56 → 2W 13:54

== ENCOUNTER 2022-08-19 18:27 | Inpatient (IN) ==
[2022-08-19] MEDS ORDERED: SODIUM CHLORIDE 0.9% 500 ML IV ONE (18:35)
[2022-08-19 19:08] LABS: Basophils # (auto) 0.03 K/uL (0-0.2); Basophils % (auto) 0.3 %; Eosinophils # (auto) 0.25 K/uL (0-0.50); Eosinophils % (auto) 2.9 %; Hematocrit (blood only) 28.6 % (42.0-52.0); Hemoglobin 9.1 g/dl (14.0-18.0); Immature Granulocytes # (auto) 0.04 K/uL (0.01-0.20); Immature Granulocytes % (auto) 0.5 %; Lymphocytes # (auto) 0.56 K/uL (1.2-3.4); Lymphocytes % (auto) 6.4 %; Mean Corpuscular Hemoglobin 27.9 pg (25.0-34.0); Mean Corpuscular Hgb Conc 31.8 g/dL (32.0-36.0); Mean Corpuscular Volume 87.7 fL (80.0-100.0); Mean Platelet Volume 9.8 fL (9.4-12.4); Monocytes # (auto) 0.65 K/uL (0.11-0.59); Monocytes % (auto) 7.4 %; Neutrophils # (auto) 7.23 K/uL (1.40-6.50); Neutrophils % (auto) 82.5 %; Platelet Count 375 K/uL (130-400); RDW Coefficient of Variation 16.7 % (11.5-14.5); RDW Standard Deviation 54.2 fL (36.4-46.3); Red Blood Count 3.26 M/uL (4.70-6.10); White Blood Count 8.76 K/ul (4.8-10.8)
[2022-08-19 19:23] LABS: Albumin Level 3.5 gm/dl (3.4-5.0); BUN Creatinine Ratio 22.3 (10-20); Bilirubin,Total 0.3 mg/dl (0.2-1.0); Calcium 8.7 mg/dl (8.6-10.3); Creatinine Clr Calc Pharmacy 35.1 ml/min; Est GFR (Non-African American) 36.3 ml/min; Globulin 3.6 gm/dl (2.5-4.0); Magnesium 1.8 mg/dl (1.7-2.4); Phosphorus 2.6 mg/dl (2.5-4.9); Potassium 4.4 mmol/L (3.5-5.1); Total Protein 7.1 gm/dl (6.0-8.3)
[2022-08-19 19:30] LABS: Troponin I High Sensitivity 13.3 pg/ml (0-20)
[2022-08-19] MEDS ORDERED: guaiFENesin 600 MG TABCR PO STA (19:31)
[2022-08-19] MEDS ORDERED: ALBUT/IPRATROP 3MG/0.5MG NEB 3 ML VIAL NEB STA (19:31)
[2022-08-19] MEDS ORDERED: methylPREDNISolone 125 MG/2 ML VIAL IV STA (19:31)
[2022-08-19 19:38] LABS: INR 1.1 (0.9-1.1); Prothrombin Time 12.2 Seconds (9.0-12.0)
[2022-08-19 20:02] LABS: Influenza A virus by PCR Negative (Neg); Influenza B virus by PCR Negative (Neg); RSV by PCR Negative (Neg); SARS CoV2 RNA(COVID-19) Ceph NEGATIVE (Negative)
[2022-08-19] MEDS ORDERED: ACETAMINOPHEN 1,000 MG/100 ML VIAL IV STA (20:05)
[2022-08-19] MEDS ORDERED: AZITHROMYCIN 500 MG in DEXTROSE 5% 250 ML IV ONE (20:53)
--- NOTE | 2022-08-19 21:13 | History & Physical Report ---
Date of Service August 19, 2022 Assessment & Plan (1) Acute hypoxemic respiratory failure: (2) WENDY (obstructive sleep apnea): (3) Acute on chronic respiratory failure with hypoxia: (4) Acute kidney injury superimposed on CKD: (5) Acute exacerbation of chronic obstructive pulmonary disease: (6) CKD (chronic kidney disease) stage 3, GFR 30-59 ml/min: Plan Kristopher Louie is a 77-year-old male with a PMH significant for severe COPD with chronic hypoxemic respiratory failure on 3L NC at baseline, WENDY (not using CPAP), CAD, SVT, DM II, hyperlipidemia, stage 3 CKD, and anemia who presented to the ED after worsening shortness of breath. Acute on Chronic Respiratory Failure with Hypoxia -Suspect worsening SOB with increased oxygen requirement due to both COPD and pneumonia -COVID/Flu/RSV negative -Chest CT read as multifocal pneumonia -Received Zosyn in ED. Will cover with Cefepime (renally dosed) and Zithromax. -Blood cultures pending -WBC 8.76 with neutrophil predominance. Lactate 2.4, Procal 0.2 -Monitor daily CBC -Mucinex ordered -Received IV methylpred in ED. Will continue IV methylpred 40 daily -Currently on 6L NC. O2 saturation goal at 89-92%, wean as able. -Continue home Brovana BID, Pulmicort BID, and Spiriva 2 puffs once daily. -Ordered Duonebs q4h, incentive spirometry, flutter valve. Abnormal Chest CT Finding -CT today described "spiculated left upper lobe mass measuring up to 5.4 cm, concerning for bronchogenic carcinoma" -Radiology read recommending PET scan and/or tissue sampling -Patient is established with [facility] -Will consult Pulm regarding this new finding, appreciate recommendations Acute Kidney Injury Superimposed on CKD Stage 3 -Cr 1.79, BUN 40. (Baseline Cr 1.4-1.5) -Patient notes decreased PO intake for last week -CrCl 35.1, renally dose medications -Encourage PO intake, if failing to improve consider starting IV fluids -Monitor daily BMP Anemia -Hgb 9.1, recent Hgb around 9-10 -Continue home ferrous sulfate -Patient states he is due for Procrit injection, consider ordering injection while admitted -Monitor daily CBC CHF -Does not appear to be hypervolemic -Will hold home Lasix for now Hypertension -Continue home diltiazem -Hold hydrochlorothiazide given current RICHIE Type 2 Diabetes Mellitus -Home meds include: Metformin, Rybelsus, Farxiga. Will hold. -Most recent A1C: 6.7% -Insulin regimen as per most recent admission: -Lantus 15u BID -Correction Factor: 20mg/dL/unit -Carbohydrate ratio = 5 g/unit WENDY -Not on BiPAP or CPAP at home -Continue oxygen as above Hyperlipidemia, CAD -Continue home atorvastatin -Continue home aspirin Diet: Heart Healthy, Carb Consistent VTE Prophylaxis: Heparin 5000u q12h Dispo: Med-Tele Code Status: Full Code History of Present Illness Primary Care Provider: James Perdue MD Kristopher Louie is a 77-year-old male with a PMH significant for severe COPD with chronic hypoxemic respiratory failure on 3L NC at baseline, WENDY (not using CPAP), CAD, SVT, DM II, hyperlipidemia, stage 3 CKD, and anemia who presented to the ED after worsening shortness of breath. He states that for the past week he has felt more fatigued- he had one episode of vomiting on Monday and has had poor PO intake since then. He denies diarrhea or nausea, but has had a decreased appetite. He states that the increased shortness of breath started yesterday and worsened today. He recalls checking his oxygen saturation at home earlier today and it was in the 70s- he later went to look at the [facility] facilities with his daughter and his SOB worsened even more. He states that EMS checked his oxygen saturation and it was then in the 60s. He states that he is comfortable now since receiving treatments in the ED. He denies chest pain, dizziness, or changes in bowel/bladder habits. He recalls a fall he had on Monday when her bent over to nut picker something and hit his elbow on a box- however denies syncope, loss of consciousness, and did not hit his head. He states that he is on 3L NC at home and has not had any recent changes to his medications. He notes that he was scheduled to get a Procrit injection this past Monday for his anemia but was unable to go as he was feeling ill. Patient currently lives independently but is in the process of moving to [facility] for assisted living. Allergies Allergy/AdvReac Type Severity Reaction Status Date / Time ALSYSA Inhibitors Allergy Severe ANAPHYLAXIS Verified 08/19/22 21:22 Home Medications Medication Instructions Recorded Confirmed Type albuterol sulfate 90 mcg/actuation 2 puff inhalation Q4 PRN Wheezing 12/14/17 08/19/22 History aerosol inhaler atorvastatin 20 mg tablet 20 mg PO HS 12/14/17 08/19/22 History metformin 1,000 mg tablet 1,000 mg PO BID 12/14/17 08/19/22 History nitroglycerin 0.4 mg sublingual 0.4 mg sublingual DIRECTED PRN 12/14/17 08/19/22 History tablet Chest Pain Oxygen Home #1 ea 11/13/18 06/17/22 History aspirin 81 mg tablet,delayed 81 mg PO Q OTHER DAY 11/27/18 08/19/22 History release ascorbic acid (vitamin C) 1,000 mg 1 gm PO QAM 06/05/19 08/19/22 History tablet tiotropium bromide 2.5 2 puff inhalation QAM 10/16/20 08/19/22 History mcg/actuation mist for inhalation (Spiriva Respimat) hydrochlorothiazide 25 mg tablet 25 mg PO BID 07/07/21 08/19/22 History pantoprazole 20 mg tablet,delayed 10 mg PO DAILY 07/07/21 08/19/22 History release ferrous sulfate 325 mg (65 mg 325 mg PO Q OTHER DAY 08/11/21 08/19/22 History iron) tablet (Feosol) mecobalamin (vitamin B12) 1,000 1,000 mcg PO DAILY 10/30/21 08/19/22 History mcg chewable tablet diltiazem HCl 240 mg 240 mg PO BID 12/20/21 08/19/22 History capsule,extended release 24 hr magnesium oxide 500 mg capsule 400 mg PO BID 12/27/21 08/19/22 History Portable Oxygen #1 ea 02/17/22 06/17/22 Rx arformoterol 15 mcg/2 mL solution 2 ml inhalation BID #120 mL 05/13/22 08/19/22 Rx for nebulization dapagliflozin 10 mg tablet 10 mg PO QAM 05/13/22 08/19/22 History (Farxiga) semaglutide 14 mg tablet (Rybelsus) 14 mg PO QAM 05/13/22 08/19/22 History budesonide 0.5 mg/2 mL suspension 0.5 mg (2 mL) inhalation BID #120 06/09/22 08/19/22 Rx for nebulization mL sodium zirconium cyclosilicate 5 5 g PO Q OTHER DAY #30 ea 06/20/22 08/19/22 Rx gram oral powder packet (Lokelma) furosemide 20 mg tablet 20 mg PO .COMPLEX #270 tabs 07/21/22 08/19/22 Rx Past Med/Surg History Medical History (Updated 05/26/22 @ 16:45 by Loraine Miller DO) Abnormal CT scan, chest BPH with obstruction/lower urinary tract symptoms CAD (coronary artery disease) CKD (chronic kidney disease) stage 3, GFR 30-59 ml/min COPD (chronic obstructive pulmonary disease) not well controlled per pt > worse this time of year with humidity DM type 2 (diabetes mellitus, type 2) NIDDM H/O pulmonary emphysema History of arthritis History of cardioversion 2009> SVT History of heart attack pt unaware of this History of nicotine dependence Hyperlipidemia Hypertension Hypomagnesemia Iron deficiency anemia due to chronic blood loss Multiple pulmonary nodules determined by computed tomography of lung On home oxygen therapy 3 LPM continuous WENDY (obstructive sleep apnea) no cpap > O2 continuous Peripheral neuropathy Pneumonia Apr 2019 Pulmonary air trapping Pulmonary air trapping Renal cyst just monitoring Renal cyst SVT (supraventricular tachycardia) dx 2009> diltiazem for this > controlled Surgical History History of bone marrow biopsy July 2019 > checking due to anemia History of cardiac cath 2009 > no stents History of colonoscopy History of esophagogastroduodenoscopy (EGD) History of nasal surgery Status post cataract extraction of both eyes with insertion of intraocular lens Baldwin teeth extracted Family History Father Diabetes Mother Diabetes Hypertension Other Brain tumor Depression Stroke Social History Smoking Status: Former smoker Tobacco Type: Cigarettes Age Started Using Tobacco: 20; packs per day: 1.0; Second Hand Exposure: No; Do You Dip or Chew Tobacco: No; Hx Alcohol Use: No Hx Substance Use: No Preferred Language: Latvian Communication Ability: Effective Blueprint Blocker Required: No Beliefs That Will Affect Care: None Current Living Situation: Alone Current Living Situation Comment: home alone Feels Safe at Home: Yes Assistive Devices: None Review of Systems Review of Systems: As per HPI. Physical Exam Constitutional: WD/WN, vitals as above Eyes: PERRL, conjunctivae normal, anicteric sclerae ENMT: external ear and nose normal, oropharynx normal Neck: trachea midline, no thyromegaly Respiratory: + cough; no respiratory distress Auscultation: + rhonchi and + wheezes Cardiovascular: Rate/Rhythm: regular rate and regular rhythm +1 lower extremity edema, bilaterally Gastrointestinal (Abdomen): normal bowel sounds, soft, nontender, no hepatosp lenomegaly Skin: no rashes, warm and dry Ecchymosis of right elbow Neurologic: normal touch/pain/proprioception, CN's II-XI intact bilaterally, moves all extremities and awake Psychiatric: A+Ox3, euthymic affect Results & Data Results & Data Vital Signs (Past 12 Hours) Vital Signs Temp Pulse Resp BP Pulse Ox O2 Del Method O2 Flow Rate 08/19/22 19:11 37.6 C H 08/19/22 18:40 97 H 28 H 93 Nasal Cannula 6 08/19/22 18:40 91 H 28 H 137/62 93 Nasal Cannula 6 08/19/22 18:42 97 H Laboratory Results 08/19/22 08/19/22 08/19/22 Range/Units 23:14 20:00 19:09 WBC (4.8-10.8) K/ul RBC (4.70-6.10) M/uL Hgb (14.0-18.0) g/dl Hct (42.0-52.0) % MCV (80.0-100.0) fL MCH (25.0-34.0) pg MCHC (32.0-36.0) g/dL RDW Std Deviation (36.4-46.3) fL RDW Coeff of Arnoldo (11.5-14.5) % Plt Count (130-400) K/uL MPV (9.4-12.4) fL Immature Gran % (Auto) % Neut % (Auto) % Lymph % (Auto) % Kane % (Auto) % Eos % (Auto) % Baso % (Auto) % Neut # (Auto) (1.40-6.50) K/uL Lymph # (Auto) (1.2-3.4) K/uL Kane # (Auto) (0.11-0.59) K/uL Eos # (Auto) (0-0.50) K/uL Baso # (Auto) (0-0.2) K/uL Immature Gran # (Auto) (0.01-0.20) K/uL PT (9.0-12.0) Seconds INR (0.9-1.1) Sodium (136-145) mmol/L Potassium (3.5-5.1) mmol/L Chloride (98-107) mmol/L Carbon Dioxide (21-32) mmol/L Anion Gap (3-11) BUN (6-23) mg/dl Creatinine (0.6-1.4) mg/dl Est Cr Clr Drug Dosing ml/min Est GFR ( Amer) ml/min Est GFR (Non-Af Amer) ml/min BUN/Creatinine Ratio (10-20) Glucose (70-99(Fasting)) mg/dl Lactate 1.8 2.4 H* (0.4-2.0) mmol/L Calcium (8.6-10.3) mg/dl Phosphorus (2.5-4.9) mg/dl Magnesium (1.7-2.4) mg/dl Total Bilirubin (0.2-1.0) mg/dl AST (13-39) U/L ALT (7-52) U/L Alkaline Phosphatase (34-104) U/L Troponin I High Sens (0-20) pg/ml Total Protein (6.0-8.3) gm/dl Albumin (3.4-5.0) gm/dl Globulin (2.5-4.0) gm/dl Albumin/Globulin Ratio (0.9-2) Lipase (11-82) U/L Procalcitonin (0-0.5) ng/ml SARS-CoV-2 (PCR) NEGATIVE (Negative) Influenza Type A (PCR) Negative (Neg) Influenza Type B (PCR) Negative (Neg) RSV (RT-PCR) Negative (Neg) 08/19/22 08/19/22 08/19/22 Range/Units 18:46 18:46 18:46 WBC (4.8-10.8) K/ul RBC (4.70-6.10) M/uL Hgb (14.0-18.0) g/dl Hct (42.0-52.0) % MCV (80.0-100.0) fL MCH (25.0-34.0) pg MCHC (32.0-36.0) g/dL RDW Std Deviation (36.4-46.3) fL RDW Coeff of Arnoldo (11.5-14.5) % Plt Count (130-400) K/uL MPV (9.4-12.4) fL Immature Gran % (Auto) % Neut % (Auto) % Lymph % (Auto) % Kane % (Auto) % Eos % (Auto) % Baso % (Auto) % Neut # (Auto) (1.40-6.50) K/uL Lymph # (Auto) (1.2-3.4) K/uL Kane # (Auto) (0.11-0.59) K/uL Eos # (Auto) (0-0.50) K/uL Baso # (Auto) (0-0.2) K/uL Immature Gran # (Auto) (0.01-0.20) K/uL PT 12.2 H (9.0-12.0) Seconds INR 1.1 (0.9-1.1) Sodium 135 L (136-145) mmol/L Potassium 4.4 (3.5-5.1) mmol/L Chloride 95 L (98-107) mmol/L Carbon Dioxide 28 (21-32) mmol/L Anion Gap 12 H (3-11) BUN 40 H (6-23) mg/dl Creatinine 1.79 H (0.6-1.4) mg/dl Est Cr Clr Drug Dosing 35.1 ml/min Est GFR ( Amer) 42.0 ml/min Est GFR (Non-Af Amer) 36.3 ml/min BUN/Creatinine Ratio 22.3 H (10-20) Glucose 189 H (70-99(Fasting)) mg/dl Lactate (0.4-2.0) mmol/L Calcium 8.7 (8.6-10.3) mg/dl Phosphorus 2.6 (2.5-4.9) mg/dl Magnesium 1.8 (1.7-2.4) mg/dl Total Bilirubin 0.3 (0.2-1.0) mg/dl AST 18 (13-39) U/L ALT 12 (7-52) U/L Alkaline Phosphatase 59 (34-104) U/L Troponin I High Sens 13.3 (0-20) pg/ml Total Protein 7.1 (6.0-8.3) gm/dl Albumin 3.5 (3.4-5.0) gm/dl Globulin 3.6 (2.5-4.0) gm/dl Albumin/Globulin Ratio 1.0 (0.9-2) Lipase 20 (11-82) U/L Procalcitonin 0.20 (0-0.5) ng/ml SARS-CoV-2 (PCR) (Negative) Influenza Type A (PCR) (Neg) Influenza Type B (PCR) (Neg) RSV (RT-PCR) (Neg) 08/19/22 Range/Units 18:46 WBC 8.76 (4.8-10.8) K/ul RBC 3.26 L (4.70-6.10) M/uL Hgb 9.1 L (14.0-18.0) g/dl Hct 28.6 L (42.0-52.0) % MCV 87.7 (80.0-100.0) fL MCH 27.9 (25.0-34.0) pg MCHC 31.8 L (32.0-36.0) g/dL RDW Std Deviation 54.2 H (36.4-46.3) fL RDW Coeff of Arnoldo 16.7 H (11.5-14.5) % Plt Count 375 (130-400) K/uL MPV 9.8 (9.4-12.4) fL Immature Gran % (Auto) 0.5 % Neut % (Auto) 82.5 % Lymph % (Auto) 6.4 % Kane % (Auto) 7.4 % Eos % (Auto) 2.9 % Baso % (Auto) 0.3 % Neut # (Auto) 7.23 H (1.40-6.50) K/uL Lymph # (Auto) 0.56 L (1.2-3.4) K/uL Kane # (Auto) 0.65 H (0.11-0.59) K/uL Eos # (Auto) 0.25 (0-0.50) K/uL Baso # (Auto) 0.03 (0-0.2) K/uL Immature Gran # (Auto) 0.04 (0.01-0.20) K/uL PT (9.0-12.0) Seconds INR (0.9-1.1) Sodium (136-145) mmol/L Potassium (3.5-5.1) mmol/L Chloride (98-107) mmol/L Carbon Dioxide (21-32) mmol/L Anion Gap (3-11) BUN (6-23) mg/dl Creatinine (0.6-1.4) mg/dl Est Cr Clr Drug Dosing ml/min Est GFR ( Amer) ml/min Est GFR (Non-Af Amer) ml/min BUN/Creatinine Ratio (10-20) Glucose (70-99(Fasting)) mg/dl Lactate (0.4-2.0) mmol/L Calcium (8.6-10.3) mg/dl Phosphorus (2.5-4.9) mg/dl Magnesium (1.7-2.4) mg/dl Total Bilirubin (0.2-1.0) mg/dl AST (13-39) U/L ALT (7-52) U/L Alkaline Phosphatase (34-104) U/L Troponin I High Sens (0-20) pg/ml Total Protein (6.0-8.3) gm/dl Albumin (3.4-5.0) gm/dl Globulin (2.5-4.0) gm/dl Albumin/Globulin Ratio (0.9-2) Lipase (11-82) U/L Procalcitonin (0-0.5) ng/ml SARS-CoV-2 (PCR) (Negative) Influenza Type A (PCR) (Neg) Influenza Type B (PCR) (Neg) RSV (RT-PCR) (Neg) Diagnostic Findings Abdomen/Pelvis CT 08/19/22 19:31 Exam(s): CT ABDOMEN + PELVIS Without Contrast EXAM: CT Abdomen and Pelvis Without Intravenous Contrast CLINICAL HISTORY: Reason for exam: vomiting, fever. TECHNIQUE: Axial computed tomography images of the abdomen and pelvis without intravenous contrast. Automated exposure control was utilized for the study. A dose lowering technique was utilized adhering to the principles of ALARA. COMPARISON: CT abdomen and pelvis without contrast, 05/13/22; right upper quadrant ultrasound 05/13/22 FINDINGS: There are new patchy alveolar opacities in the bilateral lung bases, with dependent confluent opacities in both lower lobes. Trace bilateral effusions are suggested. There is stable enlargement of the liver. There is gallbladder sludge without calcified stone, cholecystitis, or biliary dilatation. Spleen, adrenal glands, and pancreas are unremarkable. Left kidney demonstrates a stable small simple cortical cyst as well as a stable small hemorrhagic cyst; no further follow-up is required. There are no left-sided renal stones. There is no left-sided hydroureteronephrosis. There is a stable right kidney lower pole lesion measuring 6.5 cm and 32 HU, previously demonstrated to represent a cyst on ultrasound 05/13/22. This produces mild hydronephrosis of the right kidney due to UPJ obstruction, unchanged from prior exam. No right kidney stones are visualized. In addition, there is a stable subcentimeter hemorrhagic cyst in the anterior right kidney. There is atherosclerosis without aortic aneurysm. There is no adenopathy. There is no free fluid or free air. Prostate is enlarged and contains parenchymal calcifications. Urinary bladder is normal. Appendix is normal. There is no bowel obstruction or inflammation. There are scattered diverticula. There is an old fracture posterior right rib 11. There are chronic compression fractures at L1 and L2. There is no acute fracture or dislocation. Degenerative changes involve the spine and left greater than right hips. IMPRESSION: 1. Multifocal pneumonia at the lung bases, new from prior. 2. Stable mild hydronephrosis of the right kidney due to UPJ obstruction caused by a 6.5 cm cyst. Electronically signed by: Rachel Christiansen M.D. 08/19/22 21:[address] 08/19/22 19:31 Exam(s): CT CHEST Without Contrast EXAM: CT Chest Without Intravenous Contrast CLINICAL HISTORY: Reason for exam: fever, SOB, PNA. TECHNIQUE: Axial computed tomography images of the chest without intravenous contrast. Automated exposure control was utilized for the study. A dose lowering technique was utilized adhering to the principles of ALARA. COMPARISON: CT chest from 03/29/22 FINDINGS: Thyroid gland is unremarkable. There is no lymphadenopathy by CT size criteria. Thoracic aorta is calcified but normal in caliber. Enlarged central pulmonary arteries are consistent with pulmonary arterial hypertension. Heart is enlarged. Coronary arteries are calcified. There is trace pericardial effusion. There is severe emphysema. Patchy bilateral alveolar opacities, with more confluent dependent opacities bilaterally, raise concern for multifocal pneumonia. There is a spiculated mass in the parahilar left upper lobe measuring 3.7 x 4.3 x 5.4 cm (series 2, image 36). There are scattered calcified granulomas. There is a subpleural pulmonary micronodule in the anterior right upper lobe measuring 7 mm (series 6 and 1, image 22). Additional pulmonary nodules may be present but obscured by opacities. There are trace pleural effusions. There is no pneumothorax. There is a stable large lipoma in the upper right anterior chest wall soft tissues. There are no acute fractures or suspicious osseous lesions. Chronic L1 compression deformity is stable from prior. There is an old bilateral rib fractures. Abdominal findings are reported separately. IMPRESSION: 1. Spiculated left upper lobe mass measuring up to 5.4 cm, concerning for bronchogenic carcinoma, less likely focal pneumonia. Clinical correlation recommended, with PET/CT or tissue sampling for further characterization. 2. Patchy bilateral airspace opacities with more dependent opacities at the lung bases concerning for multifocal pneumonia. Electronically signed by: Rachel Christiansen M.D. 08/19/22 21:43 PM Resident Activity Tracking Resident Involvement: Resident Care Provided Care Provided: Adult [facility]
--- NOTE | 2022-08-19 21:29 | CT Scan Report ---
Exam(s): CT ABDOMEN + PELVIS Without Contrast EXAM: CT Abdomen and Pelvis Without Intravenous Contrast CLINICAL HISTORY: Reason for exam: vomiting, fever. TECHNIQUE: Axial computed tomography images of the abdomen and pelvis without intravenous contrast. Automated exposure control was utilized for the study. A dose lowering technique was utilized adhering to the principles of ALARA. COMPARISON: CT abdomen and pelvis without contrast, 05/13/22; right upper quadrant ultrasound 05/13/22 FINDINGS: There are new patchy alveolar opacities in the bilateral lung bases, with dependent confluent opacities in both lower lobes. Trace bilateral effusions are suggested. There is stable enlargement of the liver. There is gallbladder sludge without calcified stone, cholecystitis, or biliary dilatation. Spleen, adrenal glands, and pancreas are unremarkable. Left kidney demonstrates a stable small simple cortical cyst as well as a stable small hemorrhagic cyst; no further follow-up is required. There are no left-sided renal stones. There is no left-sided hydroureteronephrosis. There is a stable right kidney lower pole lesion measuring 6.5 cm and 32 HU, previously demonstrated to represent a cyst on ultrasound 05/13/22. This produces mild hydronephrosis of the right kidney due to UPJ obstruction, unchanged from prior exam. No right kidney stones are visualized. In addition, there is a stable subcentimeter hemorrhagic cyst in the anterior right kidney. There is atherosclerosis without aortic aneurysm. There is no adenopathy. There is no free fluid or free air. Prostate is enlarged and contains parenchymal calcifications. Urinary bladder is normal. Appendix is normal. There is no bowel obstruction or inflammation. There are scattered diverticula. There is an old fracture posterior right rib 11. There are chronic compression fractures at L1 and L2. There is no acute fracture or dislocation. Degenerative changes involve the spine and left greater than right hips. IMPRESSION: 1. Multifocal pneumonia at the lung bases, new from prior. 2. Stable mild hydronephrosis of the right kidney due to UPJ obstruction caused by a 6.5 cm cyst. Electronically signed by: Rachel Christiansen M.D. 08/19/22 21:28 PM
[2022-08-19] MEDS: PIPERACILLIN/TAZOBACTAM 4.5 GM/120 ML BAG IV ONE ×2 (21:39→23:15)
--- NOTE | 2022-08-19 21:44 | CT Scan Report ---
Exam(s): CT CHEST Without Contrast EXAM: CT Chest Without Intravenous Contrast CLINICAL HISTORY: Reason for exam: fever, SOB, PNA. TECHNIQUE: Axial computed tomography images of the chest without intravenous contrast. Automated exposure control was utilized for the study. A dose lowering technique was utilized adhering to the principles of ALARA. COMPARISON: CT chest from 03/29/22 FINDINGS: Thyroid gland is unremarkable. There is no lymphadenopathy by CT size criteria. Thoracic aorta is calcified but normal in caliber. Enlarged central pulmonary arteries are consistent with pulmonary arterial hypertension. Heart is enlarged. Coronary arteries are calcified. There is trace pericardial effusion. There is severe emphysema. Patchy bilateral alveolar opacities, with more confluent dependent opacities bilaterally, raise concern for multifocal pneumonia. There is a spiculated mass in the parahilar left upper lobe measuring 3.7 x 4.3 x 5.4 cm (series 2, image 36). There are scattered calcified granulomas. There is a subpleural pulmonary micronodule in the anterior right upper lobe measuring 7 mm (series 6 and 1, image 22). Additional pulmonary nodules may be present but obscured by opacities. There are trace pleural effusions. There is no pneumothorax. There is a stable large lipoma in the upper right anterior chest wall soft tissues. There are no acute fractures or suspicious osseous lesions. Chronic L1 compression deformity is stable from prior. There is an old bilateral rib fractures. Abdominal findings are reported separately. IMPRESSION: 1. Spiculated left upper lobe mass measuring up to 5.4 cm, concerning for bronchogenic carcinoma, less likely focal pneumonia. Clinical correlation recommended, with PET/CT or tissue sampling for further characterization. 2. Patchy bilateral airspace opacities with more dependent opacities at the lung bases concerning for multifocal pneumonia. Electronically signed by: Rachel Christiansen M.D. 08/19/22 21:43 PM
[2022-08-19] MEDS ORDERED: CARBOHYDRATES FOR HYPOGLYCEMIA PO PRN (22:14)
[2022-08-19] MEDS ORDERED: DEXTROSE 50% 50 ML SYRINGE IV PRN (22:14)
[2022-08-19] MEDS ORDERED: GLUCAGON FOR INJ 1 MG VIAL SQ PRN (22:14)
[2022-08-19] MEDS ORDERED: GLUCOSE 40% GEL 15 GM TUBE PO PRN (22:14)
[2022-08-19] MEDS ORDERED: GLUCOSE 10 TAB/TUBE PO PRN (22:14)
[2022-08-19] MEDS ORDERED: ACETAMINOPHEN 325 MG TAB PO PRN (22:28)
[2022-08-19] MEDS ORDERED: LANTUS PER UNIT CHARGE SQ SCH (22:30)
[2022-08-19] MEDS ORDERED: ALBUTEROL HFA 8 GM INHALER INH PRN (22:56)
[2022-08-19] MEDS ORDERED: ARFORMOTEROL TART 15MCG/2ML VIAL INH SCH (22:56)
[2022-08-20] MEDS: dilTIAZem HCL 240 MG CAPCR PO SCH ×3 (00:55→23:48)
[2022-08-20] MEDS: CEFEPIME 2,000 MG in SYRINGE 0 ML IV SCH ×2 (01:01→15:02)
[2022-08-20] MEDS: BUDESONIDE 0.5 MG/2 ML VIAL (PULMICORT) INH SCH ×3 (01:12→19:18)
--- NOTE | 2022-08-20 01:22 | Emergency Department Note ---
Impression & Plan Acute and chronic respiratory failure with hypoxia, COPD exacerbation, Pneumonia, CKD (chronic kidney disease), Mass of upper lobe of left lung ED Provider Note NAME: JENNYFER CHAVIS Jr AGE: 77 SEX: M ARRIVES VIA: Ambulance INFORMANT: Patient ED PROVIDER(S): Aamir Camp MD CHIEF COMPLAINT: SOB PLAN: Disposition: Admit MEDICAL DECISION MAKING: The patient is a pleasant 77-year-old gentleman with a past medical history of chronic respiratory failure with hypoxia on home oxygen, COPD, CHF, WENDY, hypertension, hyperlipidemia, diabetes who presents to the emergency department via EMS and then accompanied by his daughter for evaluation of worsening shortness of breath over the past couple of days which became more pronounced when he was ambulating today. He reports that he did feel nauseated several days ago and did vomit once but subsequently has felt improved. Denies any urinary symptoms. On arrival the patient is uncomfortable but no acute distress, with temperature of 37.6 respiratory rate in the upper 20s and vital signs otherwise stable. He has dry mucous membranes but does have chronic 1+ bilateral lower extremity pitting edema which she reports is "good for him". Abdomen is benign. EKG without overt acute ischemia. Chest x-ray demonstrates increased interstitial airspace opacities bilaterally per my preliminary review concerning for pneumonia given the patient's fever and recent vomiting. H/H approximate to prior values. Platelets within normal limits. Chemistry without metabolic acidosis. Creatinine 1.79, similar to prior range values in the setting of CKD. Lactic acid initially 2.4 however improved to 1.8 following treatment with DuoNeb, Solu-Medrol, and empiric antibiotics, with Zosyn. Electrolytes without significant abnormality. LFTs unremarkable. High-sensitivity troponin 13.3, within normal limits. Procalcitonin is not elevated. Lipase within normal limits. COVID-19, influenza and RSV PCR's were negative. CT of the chest and abdomen pelvis were performed with read pending. However given the patient's increased oxygen requirement in the setting of suspected pneumonia patient and daughter at bedside agree with plan for admission. IVF hydration deferred at this time as vital signs have improved and given history of CKD and CHF with daughter's concern for hypervolemia. Case was discussed with Dr. Stewart, [facility] hospitalist, who will evaluate the patient for admission. Azithromycin additionally orderd for atypical coverage. CT report subsequently demonstrates findings consistent with multifocal pneumonia with patchy bilateral airspace opacities. Additional note is made of a spiculated left upper lobe mass measuring 5.4 cm concerning for bronchogenic carcinoma. Incidental note is made of stable mild right-sided hydronephrosis suspected to be related to mass effect from renal cyst. WBC within normal limits. Triage Nursing notes reviewed and agree them. Prior/outside medical records reviewed Vital Signs: reviewed Differential diagnosis: Reactive airway disease, pneumonia, pneumothorax, COPD, CHF, infections, cardiac ischemia, pulmonary embolism, musculoskeletal, gastrointestinal, as well as other pathologies. ER treatment provided: See below. Diagnostics interpreted by me: ECG: Sinus rhythm with PACs, 92 bpm, no overt ST elevation or depression, QTc 4 2, cures 94 Cardiac Monitoring: An order for continuous cardiac monitoring was placed and demonstrated Sinus rhythm with PACs, 92 bpm. Laboratory studies: See below Imaging studies: See below Consultation(s): Dr. Stewart, [facility] hospitalist HPI: The patient is a pleasant 77-year-old gentleman with a past medical history of chronic respiratory failure with hypoxia on home oxygen, COPD, CHF, WENDY, hypertension, hyperlipidemia, diabetes who presents to the emergency department via EMS and then accompanied by his daughter for evaluation of worsening shortness of breath over the past couple of days which became more pronounced when he was ambulating today. He reports that he did feel nauseated several days ago and did vomit once but subsequently has felt improved. Denies any urinary symptoms. ROS: See above HPI for pertinent positives & negatives. A total of 10 systems reviewed and were otherwise negative. VITALS:See Below PHYSICAL EXAMINATION: GENERAL: Awake, alert, fatigued-appearing, in no distress HENT: Normocephalic, atraumatic. Oropharynx with dry mucous membranes and otherwise unremarkable. EYES: Normal conjunctiva. Sclera non-icteric. NECK: Supple. No nuchal rigidity. FROM. No JVD. RESPIRATORY: Wheezing rhonchi bilateral lung lozoya without significant increased work of breathing. CARDIAC: Regular rate, normal rhythm. Extremities warm and well perfused. Pulses equal. ABDOMEN: Soft, non-distended. No tenderness to palpation. No rebound or guarding. No masses. RECTAL: Deferred. MUSCULOSKELETAL: Chest examination reveals no tenderness. The back is symmetrical on inspection without obvious abnormality. There is no CVA tendern ess to palpation. No joint edema. LOWER EXTREMITIES: Calves are equal size bilaterally and non-tender. 1+ BLE edema. No discoloration. NEURO: Normal sensorium. No sensory or motor deficits noted. SKIN: No rash or jaundice noted. ED COURSE: Critical Care: I have personally spent greater than 45 minutes of critical care time in the direct management of this patient. This includes bedside care, interpretation of diagnostic studies, and testing, discussion with consultants, patient, and family members, and other required patient management activities. This 45 minutes is in excess of all separately billable procedures. Aamir Camp MD Past Med/Surg History Medical History Abnormal CT scan, chest BPH with obstruction/lower urinary tract symptoms CAD (coronary artery disease) CKD (chronic kidney disease) stage 3, GFR 30-59 ml/min COPD (chronic obstructive pulmonary disease) not well controlled per pt > worse this time of year with humidity DM type 2 (diabetes mellitus, type 2) NIDDM H/O pulmonary emphysema History of arthritis History of cardioversion 2009> SVT History of heart attack pt unaware of this History of nicotine dependence Hyperlipidemia Hypertension Hypomagnesemia Iron deficiency anemia due to chronic blood loss Multiple pulmonary nodules determined by computed tomography of lung On home oxygen therapy 3 LPM continuous WENDY (obstructive sleep apnea) no cpap > O2 continuous Peripheral neuropathy Pneumonia Apr 2019 Pulmonary air trapping Pulmonary air trapping Renal cyst just monitoring Renal cyst SVT (supraventricular tachycardia) dx 2009> diltiazem for this > controlled Surgical History History of bone marrow biopsy July 2019 > checking due to anemia History of cardiac cath 2009 > no stents History of colonoscopy History of esophagogastroduodenoscopy (EGD) History of nasal surgery Status post cataract extraction of both eyes with insertion of intraocular lens [place] teeth extracted Family History Father Diabetes Mother Diabetes Hypertension Other Brain tumor Depression Stroke Social History Smoking Status: Former smoker Tobacco Type: Cigarettes Age Started Using Tobacco: 20; packs per day: 1.0; Second Hand Exposure: No; Do You Dip or Chew Tobacco: No; Hx Alcohol Use: Yes Alcohol type: beer Hx Substance Use: No Preferred Language: Nigerien Communication Ability: Effective [employer] Required: No Beliefs That Will Affect Care: None Current Living Situation: Alone Current Living Situation Comment: home alone Feels Safe at Home: Yes Safety Concerns: Feels Safe At This Time Assistive Devices: None Allergies Allergies Allergy/AdvReac Type Severity Reaction Status Date / Time ALYSSA Inhibitors Allergy Severe ANAPHYLAXIS Verified 08/19/22 21:22 Home Meds Home Medications Medication Instructions Recorded Confirmed albuterol sulfate 90 mcg/actuation 2 puff inhalation Q4 PRN Wheezing 12/14/17 08/19/22 aerosol inhaler atorvastatin 20 mg tablet 20 mg PO HS 12/14/17 08/19/22 metformin 1,000 mg tablet 1,000 mg PO BID 12/14/17 08/19/22 nitroglycerin 0.4 mg sublingual 0.4 mg sublingual DIRECTED PRN 12/14/17 08/19/22 tablet Chest Pain Oxygen Home #1 ea 11/13/18 06/17/22 aspirin 81 mg tablet,delayed 81 mg PO Q OTHER DAY 11/27/18 08/19/22 release ascorbic acid (vitamin C) 1,000 mg 1 gm PO QAM 06/05/19 08/19/22 tablet tiotropium bromide 2.5 2 puff inhalation QAM 10/16/20 08/19/22 mcg/actuation mist for inhalation (Spiriva Respimat) hydrochlorothiazide 25 mg tablet 25 mg PO BID 07/07/21 08/19/22 pantoprazole 20 mg tablet,delayed 10 mg PO DAILY 07/07/21 08/19/22 release ferrous sulfate 325 mg (65 mg 325 mg PO Q OTHER DAY 08/11/21 08/19/22 iron) tablet (Feosol) mecobalamin (vitamin B12) 1,000 1,000 mcg PO DAILY 10/30/21 08/19/22 mcg chewable tablet diltiazem HCl 240 mg 240 mg PO BID 12/20/21 08/19/22 capsule,extended release 24 hr magnesium oxide 500 mg capsule 400 mg PO BID 12/27/21 08/19/22 dapagliflozin 10 mg tablet 10 mg PO QAM 05/13/22 08/19/22 (Farxiga) semaglutide 14 mg tablet (Rybelsus) 14 mg PO QAM 05/13/22 08/19/22 Previous Rx's Medication Instructions Recorded Portable Oxygen #1 ea 02/17/22 arformoterol 15 mcg/2 mL solution 2 ml inhalation BID #120 mL 05/13/22 for nebulization budesonide 0.5 mg/2 mL suspension 0.5 mg (2 mL) inhalation BID #120 06/09/22 for nebulization mL sodium zirconium cyclosilicate 5 5 g PO Q OTHER DAY #30 ea 06/20/22 gram oral powder packet (Lokelma) furosemide 20 mg tablet 20 mg PO .COMPLEX #270 tabs 07/21/22 Results & Data (ED) Vital Signs Vital Signs - 24 hr 08/19/22 18:42 08/19/22 18:40 08/19/22 18:40 Temperature Temperature Source Oral Pulse Rate 97 H 91 H 97 H Pulse Rate from SpO2 Sensor Pulse Rhythm Regular Regular Pulse Strength Normal Respiratory Rate 28 H 28 H Respiratory Effort / Characteristics Non-Labored Spontaneous Respiratory Depth Normal Respiratory Pattern Regular Blood Pressure 137/62 Blood Pressure Mean 87 Blood Pressure Position Sitting Pulse Oximetry 93 93 Oxygen Delivery Method Nasal Cannula Nasal Cannula Oxygen Flow Rate 6 6 Sepsis Recent Fever Within 48 Hours No Sepsis New/Unexplained Change in Mental Status No Sepsis Action Taken by Nursing No Action Required 08/19/22 19:11 08/19/22 21:16 08/19/22 18:40 Temperature 37.6 C H Temperature Source Oral Pulse Rate 97 H Pulse Rate from SpO2 Sensor 98 H Pulse Rhythm Pulse Strength Respiratory Rate 28 H Respiratory Effort / Characteristics Respiratory Depth Respiratory Pattern Blood Pressure Blood Pressure Mean Blood Pressure Position Pulse Oximetry 93 Oxygen Delivery Method Nasal Cannula Oxygen Flow Rate 6 Sepsis Recent Fever Within 48 Hours Sepsis New/Unexplained Change in Mental Status Sepsis Action Taken by Nursing 08/19/22 19:00 08/19/22 19:30 08/19/22 20:00 Temperature Temperature Source Pulse Rate 91 H 90 86 Pulse Rate from SpO2 Sensor 92 H 91 H Pulse Rhythm Pulse Strength Respiratory Rate 27 H 27 H 23 Respiratory Effort / Characteristics Respiratory Depth Respiratory Pattern Blood Pressure Blood Pressure Mean Blood Pressure Position Pulse Oximetry 95 93 Oxygen Delivery Method Oxygen Flow Rate Sepsis Recent Fever Within 48 Hours Sepsis New/Unexplained Change in Mental Status Sepsis Action Taken by Nursing 08/19/22 20:30 08/19/22 21:00 08/19/22 21:30 Temperature Temperature Source Pulse Rate 81 81 85 Pulse Rate from SpO2 Sensor 83 85 Pulse Rhythm Pulse Strength Respiratory Rate 22 24 Respiratory Effort / Characteristics Respiratory Depth Respiratory Pattern Blood Pressure 160/74 H 168/2 H 158/71 H Blood Pressure Mean 102 57 100 Blood Pressure Position Pulse Oximetry 95 92 Oxygen Delivery Method Nasal Cannula Oxygen Flow Rate 6 Sepsis Recent Fever Within 48 Hours Sepsis New/Unexplained Change in Mental Status Sepsis Action Taken by Nursing 08/19/22 22:00 08/19/22 20:35 Temperature Temperature Source Pulse Rate 83 Pulse Rate from SpO2 Sensor Pulse Rhythm Pulse Strength Respiratory Rate 28 H Respiratory Effort / Characteristics Respiratory Depth Respiratory Pattern Blood Pressure Blood Pressure Mean Blood Pressure Position Pulse Oximetry 94 Oxygen Delivery Method Nasal Cannula Oxygen Flow Rate 6 Sepsis Recent Fever Within 48 Hours Sepsis New/Unexplained Change in Mental Status Sepsis Action Taken by Nursing Laboratory Data Attestation: I reviewed the patient's lab results. 08/19/22 18:46 08/19/22 18:46 Lab Results 08/19/22 08/19/22 08/19/22 Range/Units 18:46 18:46 18:46 WBC 8.76 (4.8-10.8) K/ul RBC 3.26 L (4.70-6.10) M/uL Hgb 9.1 L (14.0-18.0) g/dl Hct 28.6 L (42.0-52.0) % MCV 87.7 (80.0-100.0) fL MCH 27.9 (25.0-34.0) pg MCHC 31.8 L (32.0-36.0) g/dL RDW Std Deviation 54.2 H (36.4-46.3) fL RDW Coeff of Arnoldo 16.7 H (11.5-14.5) % Plt Count 375 (130-400) K/uL MPV 9.8 (9.4-12.4) fL Immature Gran % (Auto) 0.5 % Neut % (Auto) 82.5 % Lymph % (Auto) 6.4 % Andrew % (Auto) 7.4 % Eos % (Auto) 2.9 % Baso % (Auto) 0.3 % Neut # (Auto) 7.23 H (1.40-6.50) K/uL Lymph # (Auto) 0.56 L (1.2-3.4) K/uL Andrew # (Auto) 0.65 H (0.11-0.59) K/uL Eos # (Auto) 0.25 (0-0.50) K/uL Baso # (Auto) 0.03 (0-0.2) K/uL Immature Gran # (Auto) 0.04 (0.01-0.20) K/uL PT 12.2 H (9.0-12.0) Seconds INR 1.1 (0.9-1.1) Sodium 135 L (136-145) mmol/L Potassium 4.4 (3.5-5.1) mmol/L Chloride 95 L (98-107) mmol/L Carbon Dioxide 28 (21-32) mmol/L Anion Gap 12 H (3-11) BUN 40 H (6-23) mg/dl Creatinine 1.79 H (0.6-1.4) mg/dl Est Cr Clr Drug Dosing 35.1 ml/min Est GFR ( Amer) 42.0 ml/min Est GFR (Non-Af Amer) 36.3 ml/min BUN/Creatinine Ratio 22.3 H (10-20) Glucose 189 H (70-99(Fasting)) mg/dl Lactate (0.4-2.0) mmol/L Calcium 8.7 (8.6-10.3) mg/dl Phosphorus 2.6 (2.5-4.9) mg/dl Magnesium 1.8 (1.7-2.4) mg/dl Total Bilirubin 0.3 (0.2-1.0) mg/dl AST 18 (13-39) U/L ALT 12 (7-52) U/L Alkaline Phosphatase 59 (34-104) U/L Troponin I High Sens 13.3 (0-20) pg/ml Total Protein 7.1 (6.0-8.3) gm/dl Albumin 3.5 (3.4-5.0) gm/dl Globulin 3.6 (2.5-4.0) gm/dl Albumin/Globulin Ratio 1.0 (0.9-2) Lipase 20 (11-82) U/L Procalcitonin (0-0.5) ng/ml SARS-CoV-2 (PCR) (Negative) Influenza Type A (PCR) (Neg) Influenza Type B (PCR) (Neg) RSV (RT-PCR) (Neg) 08/19/22 08/19/22 08/19/22 Range/Units 18:46 19:09 20:00 WBC (4.8-10.8) K/ul RBC (4.70-6.10) M/uL Hgb (14.0-18.0) g/dl Hct (42.0-52.0) % MCV (80.0-100.0) fL MCH (25.0-34.0) pg MCHC (32.0-36.0) g/dL RDW Std Deviation (36.4-46.3) fL RDW Coeff of Arnoldo (11.5-14.5) % Plt Count (130-400) K/uL MPV (9.4-12.4) fL Immature Gran % (Auto) % Neut % (Auto) % Lymph % (Auto) % Andrew % (Auto) % Eos % (Auto) % Baso % (Auto) % Neut # (Auto) (1.40-6.50) K/uL Lymph # (Auto) (1.2-3.4) K/uL Andrew # (Auto) (0.11-0.59) K/uL Eos # (Auto) (0-0.50) K/uL Baso # (Auto) (0-0.2) K/uL Immature Gran # (Auto) (0.01-0.20) K/uL PT (9.0-12.0) Seconds INR (0.9-1.1) Sodium (136-145) mmol/L Potassium (3.5-5.1) mmol/L Chloride (98-107) mmol/L Carbon Dioxide (21-32) mmol/L Anion Gap (3-11) BUN (6-23) mg/dl Creatinine (0.6-1.4) mg/dl Est Cr Clr Drug Dosing ml/min Est GFR ( Amer) ml/min Est GFR (Non-Af Amer) ml/min BUN/Creatinine Ratio (10-20) Glucose (70-99(Fasting)) mg/dl Lactate 2.4 H* (0.4-2.0) mmol/L Calcium (8.6-10.3) mg/dl Phosphorus (2.5-4.9) mg/dl Magnesium (1.7-2.4) mg/dl Total Bilirubin (0.2-1.0) mg/dl AST (13-39) U/L ALT (7-52) U/L Alkaline Phosphatase (34-104) U/L Troponin I High Sens (0-20) pg/ml Total Protein (6.0-8.3) gm/dl Albumin (3.4-5.0) gm/dl Globulin (2.5-4.0) gm/dl Albumin/Globulin Ratio (0.9-2) Lipase (11-82) U/L Procalcitonin 0.20 (0-0.5) ng/ml SARS-CoV-2 (PCR) NEGATIVE (Negative) Influenza Type A (PCR) Negative (Neg) Influenza Type B (PCR) Negative (Neg) RSV (RT-PCR) Negative (Neg) Administered Medications Acetaminophen (Acetaminophen 325 Mg Tab) 650 mg PO Q4H PRN PRN Reason: Pain or Fever Stop: 09/18/22 22:27 Last Admin: 08/20/22 00:55 Dose: 650 mg Documented By: AMANDO Albuterol (Albut/Ipratrop 3mg/0.5mg Neb 3 Ml Vial) 3 ml NEB Q4R [facility]; Protocol Stop: 09/19/22 02:59 Last Admin: 08/20/22 02:15 Dose: 3 ml Documented By: DEBBIE Budesonide (Budesonide 0.5 Mg/2 Ml Vial (Pulmicort)) 0.5 mg INH BIDR [facility] Stop: 09/18/22 22:55 Last Admin: 08/20/22 01:12 Dose: Not Given Documented By: DEBBIE Diltiazem HCl (Diltiazem Hcl 240 Mg Capcr) 240 mg PO BID [facility] Stop: 09/18/22 22:55 Last Admin: 08/20/22 00:55 Dose: 240 mg Documented By: AMANDO Cefepime HCl 2,000 mg/ Syringe 20 mls @ 5 mls/min IV Q12H [facility]; Protocol Stop: 08/27/22 01:59 Last Admin: 08/20/22 01:01 Dose: 5 mls/min Documented By: AMANDO Insulin Glargine (Lantus Per Unit Charge) 15 units SQ BID [facility] Stop: 09/18/22 22:29 Last Admin: 08/20/22 00:55 Dose: 15 units Documented By: AMANDO Co-signed By: KADEEM Discontinued Medications Albuterol (Albut/Ipratrop 3mg/0.5mg Neb 3 Ml Vial) 3 ml NEB NOW STA; Protocol Stop: 08/19/22 19:32 Last Admin: 08/19/22 19:42 Dose: 3 ml Documented By: BS Guaifenesin (Guaifenesin 600 Mg Tabcr) 1,200 mg PO NOW STA Stop: 08/19/22 19:32 Last Admin: 08/19/22 19:42 Dose: 1,200 mg Documented By: BS Sodium Chloride (Nss) 500 mls @ 999 mls/hr IV .Q31M ONE Stop: 08/19/22 19:05 Last Infusion: 08/19/22 23:58 Dose: 0 mls/hr Documented By: Admin: 08/19/22 23:18 Dose: 999 mls/hr Documented By: AMANDO Piperacillin Sod/Tazobactam Sod (Zosyn) 4.5 gm in 120 mls @ 240 mls/hr IV NOW ONE Stop: 08/19/22 20:02 Last Infusion: 08/19/22 23:58 Dose: 0 mls/hr Documented By: Admin: 08/19/22 23:15 Dose: 240 mls/hr Documented By: AMANDO Acetaminophen (Ofirmev) 1,000 mg in 100 mls @ 400 mls/hr IV NOW STA Stop: 08/19/22 20:19 Last Admin: 08/20/22 00:51 Dose: Not Given Documented By: AMANDO Azithromycin 500 mg/ Dextrose 255 mls @ 125 mls/hr IV ONE ONE Stop: 08/19/22 22:55 Last Infusion: 08/20/22 03:36 Dose: 0 mls/hr Documented By: Admin: 08/20/22 00:54 Dose: 125 mls/hr Documented By: AMANDO Methylprednisolone (Methylprednisolone 125 Mg/2 Ml Vial) 125 mg IV NOW STA Stop: 08/19/22 19:32 Last Admin: 08/19/22 19:42 Dose: 125 mg Documented By: AMANDO Imaging Data Radiologist's Impression: Abdomen/Pelvis CT 08/19/22 19:31 Exam(s): CT ABDOMEN + PELVIS Without Contrast EXAM: CT Abdomen and Pelvis Without Intravenous Contrast CLINICAL HISTORY: Reason for exam: vomiting, fever. TECHNIQUE: Axial computed tomography images of the abdomen and pelvis without intravenous contrast. Automated exposure control was utilized for the study. A dose lowering technique was utilized adhering to the principles of ALARA. COMPARISON: CT abdomen and pelvis without contrast, 05/13/22; right upper quadrant ultrasound 05/13/22 FINDINGS: There are new patchy alveolar opacities in the bilateral lung bases, with dependent confluent opacities in both lower lobes. Trace bilateral effusions are suggested. There is stable enlargement of the liver. There is gallbladder sludge without calcified stone, cholecystitis, or biliary dilatation. Spleen, adrenal glands, and pancreas are unremarkable. Left kidney demonstrates a stable small simple cortical cyst as well as a stable small hemorrhagic cyst; no further follow-up is required. There are no left-sided renal stones. There is no left-sided hydroureteronephrosis. There is a stable right kidney lower pole lesion measuring 6.5 cm and 32 HU, previously demonstrated to represent a cyst on ultrasound 05/13/22. This produces mild hydronephrosis of the right kidney due to UPJ obstruction, unchanged from prior exam. No right kidney stones are visualized. In addition, there is a stable subcentimeter hemorrhagic cyst in the anterior right kidney. There is atherosclerosis without aortic aneurysm. There is no adenopathy. There is no free fluid or free air. Prostate is enlarged and contains parenchymal calcifications. Urinary bladder is normal. Appendix is normal. There is no bowel obstruction or inflammation. There are scattered diverticula. There is an old fracture posterior right rib 11. There are chronic compression fractures at L1 and L2. There is no acute fracture or dislocation. Degenerative changes involve the spine and left greater than right hips. IMPRESSION: 1. Multifocal pneumonia at the lung bases, new from prior. 2. Stable mild hydronephrosis of the right kidney due to UPJ obstruction caused by a 6.5 cm cyst. Electronically signed by: Rachel Christiansen M.D. 08/19/22 21:[address] 08/19/22 19:31 Exam(s): CT CHEST Without Contrast EXAM: CT Chest Without Intravenous Contrast CLINICAL HISTORY: Reason for exam: fever, SOB, PNA. TECHNIQUE: Axial computed tomography images of the chest without intravenous contrast. Automated exposure control was utilized for the study. A dose lowering technique was utilized adhering to the principles of ALARA. COMPARISON: CT chest from 03/29/22 FINDINGS: Thyroid gland is unremarkable. There is no lymphadenopathy by CT size criteria. Thoracic aorta is calcified but normal in caliber. Enlarged central pulmonary arteries are consistent with pulmonary arterial hypertension. Heart is enlarged. Coronary arteries are calcified. There is trace pericardial effusion. There is severe emphysema. Patchy bilateral alveolar opacities, with more confluent dependent opacities bilaterally, raise concern for multifocal pneumonia. There is a spiculated mass in the parahilar left upper lobe measuring 3.7 x 4.3 x 5.4 cm (series 2, image 36). There are scattered calcified granulomas. There is a subpleural pulmonary micronodule in the anterior right upper lobe measuring 7 mm (series 6 and 1, image 22). Additional pulmonary nodules may be present but obscured by opacities. There are trace pleural effusions. There is no pneumothorax. There is a stable large lipoma in the upper right anterior chest wall soft tissues. There are no acute fractures or suspicious osseous lesions. Chronic L1 compression deformity is stable from prior. There is an old bilateral rib fractures. Abdominal findings are reported separately. IMPRESSION: 1. Spiculated left upper lobe mass measuring up to 5.4 cm, concerning for bronchogenic carcinoma, less likely focal pneumonia. Clinical correlation recommended, with PET/CT or tissue sampling for further characterization. 2. Patchy bilateral airspace opacities with more dependent opacities at the lung bases concerning for multifocal pneumonia. Electronically signed by: Rachel Christiansen M.D. 08/19/22 21:43 PM Discharge Plan Visit Data Chief Complaint: Shortness of Breath/Dyspnea Stated Complaint: SOB ED Provider: Aamir Camp Discharge Problem: Acute and chronic respiratory failure with hypoxia, COPD exacerbation, Pneumonia, CKD (chronic kidney disease), Mass of upper lobe of left lung Patient Disposition: Admitted As Inpatient Discharge Instructions Interventions: ED Discharge Assessment Last Done: 08/19/22 22:57
[2022-08-20] MEDS: ALBUT/IPRATROP 3MG/0.5MG NEB 3 ML VIAL NEB SCH ×6 (02:15→22:17)
[2022-08-20 05:12] LABS: Hematocrit (blood only) 27.6 % (42.0-52.0); Hemoglobin 8.7 g/dl (14.0-18.0); Mean Corpuscular Hemoglobin 27.8 pg (25.0-34.0); Mean Corpuscular Hgb Conc 31.5 g/dL (32.0-36.0); Mean Corpuscular Volume 88.2 fL (80.0-100.0); Mean Platelet Volume 10.2 fL (9.4-12.4); Platelet Count 374 K/uL (130-400); RDW Coefficient of Variation 16.6 % (11.5-14.5); RDW Standard Deviation 53.8 fL (36.4-46.3); Red Blood Count 3.13 M/uL (4.70-6.10); White Blood Count 5.66 K/ul (4.8-10.8)
[2022-08-20 05:28] LABS: Basophils # (auto) 0.01 K/uL (0-0.2); Basophils % (auto) 0.2 %; Immature Granulocytes # (auto) 0.04 K/uL (0.01-0.20); Immature Granulocytes % (auto) 0.7 %; Lymphocytes # (auto) 0.23 K/uL (1.2-3.4); Lymphocytes % (auto) 4.1 %; Monocytes # (auto) 0.03 K/uL (0.11-0.59); Monocytes % (auto) 0.5 %; Neutrophils # (auto) 5.35 K/uL (1.40-6.50); Neutrophils % (auto) 94.5 %; RBC Morphology Unremarkable
[2022-08-20 05:32] LABS: BUN Creatinine Ratio 24.6 (10-20); Calcium 8.3 mg/dl (8.6-10.3); Creatinine Clr Calc Pharmacy 38.2 ml/min; Est GFR (African American) 45.7 ml/min; Est GFR (Non-African American) 39.4 ml/min; Magnesium 1.8 mg/dl (1.7-2.4); Potassium 4.5 mmol/L (3.5-5.1)
[2022-08-20] MEDS ORDERED: LACTATED RINGER'S 1,000 ML IV SCH (06:15)
[2022-08-20] MEDS ORDERED: INSULIN ASPART PER UNIT CHARGE ONE (06:30)
[2022-08-20] MEDS: INSULIN ASPART PER UNIT CHARGE SC SCH ×5 (06:32→21:21)
--- NOTE | 2022-08-20 07:06 | Electrocardiogram Report ---
Test Reason : Blood Pressure : / mmHG Vent. Rate : 092 BPM Atrial Rate : 092 BPM P-R Int : 164 ms QRS Dur : 094 ms QT Int : 390 ms P-R-T Axes : 038 084 070 degrees QTc Int : 482 ms Sinus rhythm with Premature atrial complexes with Aberrant conduction Otherwise normal ECG When compared with ECG of 25-MAY-2022 08:28, Aberrant conduction is now Present Confirmed by Rahat Seay ([id number]) on 08/20/2022 7:06:01 AM Referred By: REFERRED SELF Confirmed By:Christos Seay
[2022-08-20] MEDS ORDERED: PHARMACY GLYCEMIC MGMT CONSULT PRN (07:27)
--- NOTE | 2022-08-20 07:30 | Hospitalist Progress Note ---
Date of Service August 20, 2022 Assessment & Plan (1) Acute exacerbation of chronic obstructive pulmonary disease: Plan: Kristopher Louie is a 77-year-old male with a PMH significant for severe COPD with chronic hypoxemic respiratory failure on 3L NC at baseline, WENDY (not using CPAP), CAD, SVT, DM II, hyperlipidemia, stage 3 CKD, and anemia who presented to the ED after worsening shortness of breath. Acute on Chronic Respiratory Failure with Hypoxia; COPD exacerbation -Suspect worsening SOB with increased oxygen requirement due to both COPD and pneumonia -COVID/Flu/RSV negative -Chest CT read as multifocal pneumonia -Received Zosyn in ED. Will cover with Cefepime (renally dosed) and Zithromax. -Blood cultures pending -WBC 8.76 with neutrophil predominance. Lactate 2.4, Procal 0.2 -Mucinex ordered -Methylpred 40mg IV q8h -Continue home Brovana BID, Pulmicort BID, and Spiriva 2 puffs once daily. -Ordered Duonebs q4h, incentive spirometry, flutter valve. Abnormal Chest CT Finding -CT today described "spiculated left upper lobe mass measuring up to 5.4 cm, concerning for bronchogenic carcinoma" -Radiology read recommending PET scan and/or tissue sampling -[facility] Pulm (follows as outpatient) consulted: Multiple pulmonary nodules. Somewhat unusual growth pattern. Larger solid component; inflammatory vs malignancy. Possible bronchoscopic sampling next week. Acute Kidney Injury Superimposed on CKD Stage 3a -Cr 1.79, BUN 40. (Baseline Cr 1.4-1.5) -Patient notes decreased PO intake for last week -s/p LR 125mL/hr x 1 bag -Monitor daily BMP Anemia -Hgb 9.1, recent Hgb around 9-10 -Continue home ferrous sulfate -Patient states he is due for Procrit injection, consider ordering injection while admitted; will need to check [facility] heme/onc records -Monitor daily CBC CHF -Euvolemic, held home Lasix given RICHIE Hypertension -Continue home diltiazem -Hold hydrochlorothiazide given current RICHIE Type 2 Diabetes Mellitus -Hold home Metformin, Rybelsus, Farxiga. -A1c 6.8 -Pharmacy glycemic consult placed -Difficult to control BSGs as per previous admission which required Lantus 15u BID and Aspart CF 20, carb ratio 5. WENDY -Not on BiPAP or CPAP at home Hyperlipidemia, CAD -Continue home atorvastatin and baby ASA Diet: HH, DM2. VTE Prophylaxis: Heparin 5000u q12h Dispo: Med-Tele Code Status: Full Code (2) WENDY (obstructive sleep apnea): (3) Acute on chronic respiratory failure with hypoxia: (4) Acute kidney injury superimposed on CKD: (5) CKD (chronic kidney disease) stage 3, GFR 30-59 ml/min: (6) Acute and chronic respiratory failure with hypoxia: (7) COPD exacerbation: Admission and Anticipated Discharge Date Admission Date: August 19, 2022 Supervising Physician Co-Signing Physician Notes ATTESTATION I also saw the patient and confirmed roca portions of the history and exam. I agree with the impression and plan in the resident documentation, and as summarized below. Upon my early afternoon exam, the patient remains in the emergency department awaiting bed placement. He tells me that he feels better compared to admission. No dyspnea at rest. He is able to ambulate to the bathroom without significant dyspnea, which was more than he could do prior to admission. EXAM 102/62, 79, 24, 37.6, 97% Alert and oriented. Talkative. Watching TV. HEENT generally unremarkable. No JVD is appreciated. Lung lozoya are tight with diffuse wheezing, decreased air exchange. Heart is regular Trace lower extremity edema bilaterally DATA Labs WBC 5.66, hemoglobin 8.7, platelet count 374 Sodium 136, potassium 4.8, BUN 36, creatinine 1.[address] of the chest dated 08/19/2022 shows a spiculated left upper lobe mass measuring 5.4 cm, concerning for bronchogenic carcinoma versus focal pneumonia. There are patchy bilateral airspace opacities with more dependent opacities at the lung bases concerning for a multifocal pneumonia. Micro Blood cultures drawn 08/19/2022 are pending. IMPRESSION & PLAN COPD exacerbation Multifocal pneumonia Pulmonary mass IV steroids; transition to p.o. after we see some clinical improvement Empiric antibiotics Appreciate pulmonary consultation Potential bronchoscopy Additional per resident documentation Subjective He is feeling much better today from a respiratory standpoint; 75% of normal. He has been bringing up more clear sputum after starting the neb treatments. Review of Systems Review of Systems: All systems reviewed & are unremarkable except as noted in HPI & below Physical Exam Physical Exam: General: Grossly A&O. NAD. Cooperative. HEENT: Atraumatic, normocephalic. Pulm: Moderately diminished, tight at bases. No crackles or wheezes. No accessory muscle use. Cardiac: RRR, -mrg. No LE edema. Abdominal: Nontender, nondistended, soft. Results & Data Results & Data Vital Signs (Past 12 Hours) Vital Signs Pulse Pulse Resp BP Pulse Ox Pulse Ox O2 Del Method 08/20/22 07:00 69 20 133/64 97 Nasal Cannula 08/20/22 06:54 70 20 97 Nasal Cannula 08/20/22 05:00 70 19 140/62 94 Nasal Cannula 08/20/22 04:00 78 22 152/70 H 98 Room Air 08/20/22 03:00 79 20 137/63 94 Nasal Cannula 08/20/22 03:12 140 H 08/19/22 20:35 94 Nasal Cannula 08/19/22 22:28 Nasal Cannula 08/20/22 02:00 81 21 143/66 H 95 08/20/22 01:30 83 22 93 08/20/22 02:15 85 20 95 Nasal Cannula 08/20/22 01:19 84 08/20/22 01:06 88 23 08/20/22 01:14 Nasal Cannula 08/20/22 00:30 80 20 147/66 H 90 08/20/22 00:00 83 20 141/65 H 93 08/19/22 23:30 84 23 146/64 H 94 08/19/22 22:30 84 26 H 167/69 H 96 08/19/22 23:39 93 08/19/22 22:00 83 28 H 08/19/22 21:30 85 24 158/71 H 92 Nasal Cannula 08/19/22 21:00 81 19 168/2 H 95 08/19/22 20:30 81 22 160/74 H 08/19/22 20:00 86 23 08/19/22 19:30 90 27 H 93 08/19/22 21:16 Nasal Cannula O2 Del Method O2 Flow Rate 08/20/22 07:00 6 08/20/22 06:54 08/20/22 05:00 6 08/20/22 04:00 08/20/22 03:00 08/20/22 03:12 08/19/22 20:35 6 08/19/22 22:28 6 08/20/22 02:00 08/20/22 01:30 08/20/22 02:15 6 08/20/22 01:19 08/20/22 01:06 08/20/22 01:14 6 08/20/22 00:30 08/20/22 00:00 08/19/22 23:30 08/19/22 22:30 08/19/22 23:39 Nasal Cannula 08/19/22 22:00 08/19/22 21:30 6 08/19/22 21:00 08/19/22 20:30 08/19/22 20:00 08/19/22 19:30 08/19/22 21:16 6 Resident Activity Tracking Resident Involvement: Resident Care Provided Care Provided: Adult Hospital Medicine
--- NOTE | 2022-08-20 07:31 | XRay Report ---
XR chest 1V portable HISTORY: Chest pain, nonspecific COMPARISON: Chest 05/28/2022. FINDINGS: Patchy bilateral airspace opacities within the mid to lower lung zones most pronounced on t he left. Emphysema. The heart is normal in size. Trace bilateral pleural effusions. No pneumothorax. IMPRESSION: Patchy bilateral airspace opacities likely representing a pneumonia. Recommend follow-up to ensure co mplete resolution. ACT 112: Negative or not required by law. Electronically signed by: Rocco Logan M.D. 08/20/2022 7:30 AM
[2022-08-20 07:49] LABS: BUN Creatinine Ratio 26.5 (10-20); Calcium 8.6 mg/dl (8.6-10.3); Creatinine Clr Calc Pharmacy 42.3 ml/min; Est GFR (African American) 51.6 ml/min; Est GFR (Non-African American) 44.5 ml/min; Potassium 4.7 mmol/L (3.5-5.1)
[2022-08-20] MEDS: HEPARIN SOD 5,000 UNIT/0.5 ML VIAL SQ SCH ×2 (08:12→23:47)
[2022-08-20] MEDS: guaiFENesin 600 MG TABCR PO SCH ×2 (08:12→23:49)
[2022-08-20] MEDS: PANTOprazole 40 MG TAB PO SCH (08:12)
[2022-08-20] MEDS: methylPREDNISolone 40 MG in SYRINGE 0 ML IV SCH ×2 (08:12→18:06)
[2022-08-20] MEDS: MAGNESIUM OXIDE 400 MG TAB PO SCH ×2 (08:12→23:48)
[2022-08-20] MEDS: UMECLIDINIUM BROMIDE 62.5MCG/BLISTER 7 PUFFS/INHALER INH SCH (08:12)
[2022-08-20] MEDS: ASPIRIN 81 MG CHEW PO SCH (08:13)
[2022-08-20] MEDS ORDERED: methylPREDNISolone 40 MG in SYRINGE 0 ML IV SCH (09:00)
[2022-08-20] MEDS ORDERED: hydroCHLOROthiazide 25 MG TAB PO SCH (09:00)
[2022-08-20] MEDS ORDERED: NON-FORMULARY MEDICATION (Tiotropium Bromide [Spiriva Respimat] 2.5 mcg/actuation mist) INH SCH (09:00)
[2022-08-20] MEDS: LANTUS PER UNIT CHARGE SQ SCH ×2 (09:11→17:30)
[2022-08-20 09:20] LABS: Estimated Average Glucose 148 mg/dl; Hemoglobin A1C 6.8 % (4.5-5.6)
--- NOTE | 2022-08-20 09:55 | Pharmacy Report ---
Pharmacy Glycemic Short Note 2 - Date of Service August 20, 2022 - Glycemic Short BSG Results (Last 24 hours): 08/19/22 08/20/22 08/20/22 18:46 00:17 04:26 Glucose 189 H 420 H* POC Glucose 374 H* 08/20/22 08/20/22 08/20/22 06:25 06:49 08:50 Glucose 345 H* POC Glucose 363 H* 279 H OUTPATIENT ANTIDIABETIC REGIMEN: * Farxiga 10 mg PO daily * Metformin 1000 mg PO BIDM * Semaglutide 14 mg PO daily HbA1c: 6.8% (08/20/22) ASSESSMENT: * TS is a 77 year old male who presented to ED overnight with worsening shortness of breath * Received Solu-medrol 125 mg IV x 1, resulting in hyperglycemia (374 mg/dL) * Ordered Solu-medrol 40 mg IV q8h ongoing * Prior inpatient glycemic data while on steroids suggests aggressive weight- based insulin dosing will be needed PLAN FOR INPATIENT GLYCEMIC CONTROL: * Hold outpatient oral diabetes medications * Basal insulin * Lantus 20 units SQ BID * Reassess in AM * Bolus insulin * NovoLog per scale ACHS or Q6hrs while NPO * Goal Range: Low 110 mg/dL - High 140 mg/dL * Correction Factor: 15 mg/dL/unit * Nutritional / Prandial insulin per carb ratio of 1 unit per 5 grams CHO consumed * checks with same parameters
--- NOTE | 2022-08-20 09:59 | Pulmonary Consultation ---
Date of Consultation August 20, 2022 Assessment & Plan (1) COPD exacerbation: Agree with empiric steroids and nebulizer treatments. Continue course of steroids for 5 days total. (2) Pneumonia: He has multifocal pneumonia on CT chest. Please obtain a sputum culture. Agree with cefepime and azithromycin. (3) Multiple pulmonary nodules determined by computed tomography of lung: Multiple pulmonary nodules are seen on this latest CT chest with the largest in the left upper lobe region measuring over 4 cm. The growth pattern has been somewhat unusual as a CT in December 2021 revealed a dense subsolid nodular component in the same area and a subsequent CT in March revealed a less dense groundglass opacity with a small subsolid component in this region. Now we have a much larger solid density. Unclear whether this represents an inflammatory area versus true malignancy. Bronchoscopic sampling with biopsy may be required early next week. No significant hilar or mediastinal adenopathy noted on this noncontrast CT chest. Plan Thank you for the consultation. We will continue to follow. History of Present Illness Reason for Consultation: Left upper lobe lung mass Attending Physician: Nathan Triplett DO History of Present Illness 77-year-old male known to me in the pulmonary clinic for multiple lung nodules, advanced COPD on Brovana, budesonide and Spiriva and chronic hypoxia who presented to the hospital yesterday due to increased cough and shortness of breath. CT chest for pneumonia work-up yesterday revealed a spiculated mass in the left hilar region measuring 3.7 x 4.3 x 5.4 cm with areas of calcified granulomas as well. There are also patchy bilateral airspace opacities concerning for possible pneumonia. He did have a CT of his chest 03/29/2022 which revealed a 13 mm groundglass opacity in the left upper lobe. Patient has a [id number] smoking history and quit 7 years ago. Chronically uses supplemental oxygen. He is currently on methylprednisolone 40 mg every 8, cefepime and azithromycin. ICS/LABA/LAMA inhalers have been continued. He is saturating 94% on room air. He feels significantly better since hospital admission. Cough and shortness of breath have improved. Denies hemoptysis. Endorses 8 pound weight loss since the past 1 week. Allergies Allergy/AdvReac Type Severity Reaction Status Date / Time ALYSSA Inhibitors Allergy Severe ANAPHYLAXIS Verified 08/19/22 21:22 Home Medications Medication Instructions Recorded Confirmed Type albuterol sulfate 90 mcg/actuation 2 puff inhalation Q4 PRN Wheezing 12/14/17 08/19/22 History aerosol inhaler atorvastatin 20 mg tablet 20 mg PO HS 12/14/17 08/19/22 History metformin 1,000 mg tablet 1,000 mg PO BID 12/14/17 08/19/22 History nitroglycerin 0.4 mg sublingual 0.4 mg sublingual DIRECTED PRN 12/14/17 08/19/22 History tablet Chest Pain Oxygen Home #1 ea 11/13/18 06/17/22 History aspirin 81 mg tablet,delayed 81 mg PO Q OTHER DAY 11/27/18 08/19/22 History release ascorbic acid (vitamin C) 1,000 mg 1 gm PO QAM 06/05/19 08/19/22 History tablet tiotropium bromide 2.5 2 puff inhalation QAM 10/16/20 08/19/22 History mcg/actuation mist for inhalation (Spiriva Respimat) hydrochlorothiazide 25 mg tablet 25 mg PO BID 07/07/21 08/19/22 History pantoprazole 20 mg tablet,delayed 10 mg PO DAILY 07/07/21 08/19/22 History release ferrous sulfate 325 mg (65 mg 325 mg PO Q OTHER DAY 08/11/21 08/19/22 History iron) tablet (Feosol) mecobalamin (vitamin B12) 1,000 1,000 mcg PO DAILY 10/30/21 08/19/22 History mcg chewable tablet diltiazem HCl 240 mg 240 mg PO BID 12/20/21 08/19/22 History capsule,extended release 24 hr magnesium oxide 500 mg capsule 400 mg PO BID 12/27/21 08/19/22 History Portable Oxygen #1 ea 02/17/22 06/17/22 Rx arformoterol 15 mcg/2 mL solution 2 ml inhalation BID #120 mL 05/13/22 08/19/22 Rx for nebulization dapagliflozin 10 mg tablet 10 mg PO QAM 05/13/22 08/19/22 History (Farxiga) semaglutide 14 mg tablet (Rybelsus) 14 mg PO QAM 05/13/22 08/19/22 History budesonide 0.5 mg/2 mL suspension 0.5 mg (2 mL) inhalation BID #120 06/09/22 08/19/22 Rx for nebulization mL sodium zirconium cyclosilicate 5 5 g PO Q OTHER DAY #30 ea 06/20/22 08/19/22 Rx gram oral powder packet (Lokelma) furosemide 20 mg tablet 20 mg PO .COMPLEX #270 tabs 07/21/22 08/19/22 Rx Patient History Medical History Abnormal CT scan, chest BPH with obstruction/lower urinary tract symptoms CAD (coronary artery disease) CKD (chronic kidney disease) stage 3, GFR 30-59 ml/min COPD (chronic obstructive pulmonary disease) not well controlled per pt > worse this time of year with humidity DM type 2 (diabetes mellitus, type 2) NIDDM H/O pulmonary emphysema History of arthritis History of cardioversion 2009> SVT History of heart attack pt unaware of this History of nicotine dependence Hyperlipidemia Hypertension Hypomagnesemia Iron deficiency anemia due to chronic blood loss Multiple pulmonary nodules determined by computed tomography of lung On home oxygen therapy 3 LPM continuous WENDY (obstructive sleep apnea) no cpap > O2 continuous Peripheral neuropathy Pneumonia Apr 2019 Pulmonary air trapping Pulmonary air trapping Renal cyst just monitoring Renal cyst SVT (supraventricular tachycardia) dx 2009> diltiazem for this > controlled Surgical History History of bone marrow biopsy July 2019 > checking due to anemia History of cardiac cath 2009 > no stents History of colonoscopy History of esophagogastroduodenoscopy (EGD) History of nasal surgery Status post cataract extraction of both eyes with insertion of intraocular lens Prichard teeth extracted Family History Father Diabetes Mother Diabetes Hypertension Other Brain tumor Depression Stroke Social History Smoking Status: Former smoker Tobacco Type: Cigarettes Age Started Using Tobacco: 20; packs per day: 1.0; Second Hand Exposure: No; Do You Dip or Chew Tobacco: No; Hx Alcohol Use: Yes Alcohol type: beer Hx Substance Use: No Preferred Language: Kinyarwanda Communication Ability: Effective Cd Reactor Operator Required: No Beliefs That Will Affect Care: None Current Living Situation: Alone Current Living Situation Comment: home alone Feels Safe at Home: Yes Safety Concerns: Feels Safe At This Time Assistive Devices: None Review of Systems Review of Systems: All systems reviewed & are unremarkable except as noted in HPI & below Physical Exam Constitutional: Elderly-appearing male no apparent distress. Eyes: PERRL, conjunctivae normal, anicteric sclerae Respiratory: Lung sounds diminished bilaterally. Prolonged phase of exhalation. Mild crackles bilaterally. Cardiovascular: Normal rate and rhythm. Trace edema in the lower extremities. Gastrointestinal (Abdomen): normal bowel sounds, soft, nontender, no hepatosplenomegaly Neurologic: CN's II-XI intact bilaterally Psychiatric: A+Ox3, euthymic affect Results & Data Results & Data Vital Signs (Past 12 Hours) Vital Signs Pulse Pulse Resp BP Pulse Ox Pulse Ox O2 Del Method 08/20/22 09:02 84 20 102/62 94 Room Air 08/20/22 08:00 70 18 142/57 H 95 Room Air 08/20/22 07:00 69 20 133/64 97 Nasal Cannula 08/20/22 06:54 70 20 97 Nasal Cannula 08/20/22 05:00 70 19 140/62 94 Nasal Cannula 08/20/22 04:00 78 22 152/70 H 98 Room Air 08/20/22 03:00 79 20 137/63 94 Nasal Cannula 08/20/22 03:12 140 H 08/19/22 22:28 Nasal Cannula 08/20/22 02:00 81 21 143/66 H 95 08/20/22 01:30 83 22 93 08/20/22 02:15 85 20 95 Nasal Cannula 08/20/22 01:19 84 08/20/22 01:06 88 23 08/20/22 01:14 Nasal Cannula 08/20/22 00:30 80 20 147/66 H 90 08/20/22 00:00 83 20 141/65 H 93 08/19/22 23:30 84 23 146/64 H 94 08/19/22 22:30 84 26 H 167/69 H 96 08/19/22 23:39 93 08/19/22 22:00 83 28 H O2 Del Method O2 Flow Rate 08/20/22 09:02 08/20/22 08:00 08/20/22 07:00 6 08/20/22 06:54 08/20/22 05:00 6 08/20/22 04:00 08/20/22 03:00 08/20/22 03:12 08/19/22 22:28 6 08/20/22 02:00 08/20/22 01:30 08/20/22 02:15 6 08/20/22 01:19 08/20/22 01:06 08/20/22 01:14 6 08/20/22 00:30 08/20/22 00:00 08/19/22 23:30 08/19/22 22:30 08/19/22 23:39 Nasal Cannula 08/19/22 22:00 PG Care Time/CCT Total # of Minutes Spent Total Time Spent with Patient: Total time spent is greater than 50% in coordination of care (as documented) at patient's floor/unit and/or counseling patient: Coding Level of Care Code 84340 INT INP/OBS CARE 75MIN Diagnoses COPD exacerbation J44.1 Pneumonia J18.9 Multiple pulmonary nodules determined by computed tomography of lung R91.8
[2022-08-20 11:12] LABS: BUN Creatinine Ratio 26.9 (10-20); Calcium 8.7 mg/dl (8.6-10.3); Est GFR (African American) 54.2 ml/min; Est GFR (Non-African American) 46.8 ml/min; Potassium 4.1 mmol/L (3.5-5.1)
[2022-08-20] MEDS ORDERED: CEFEPIME 2,000 MG/20 ML VIAL ONE (14:52)
[2022-08-20] MEDS: SODIUM ZIRCONIUM CYCLOSILICATE 10 GM PACKET PO SCH (15:01)
[2022-08-20 15:21] LABS: BUN Creatinine Ratio 25.7 (10-20); Calcium 8.5 mg/dl (8.6-10.3); Creatinine Clr Calc Pharmacy 45.6 ml/min; Est GFR (African American) 56.6 ml/min; Est GFR (Non-African American) 48.8 ml/min; Potassium 4.8 mmol/L (3.5-5.1)
[2022-08-20 18:29] LABS: BUN Creatinine Ratio 24.4 (10-20); Calcium 8.6 mg/dl (8.6-10.3); Creatinine Clr Calc Pharmacy 40.9 ml/min; Est GFR (African American) 49.6 ml/min; Est GFR (Non-African American) 42.8 ml/min; Potassium 4.1 mmol/L (3.5-5.1)
[2022-08-20] MEDS ORDERED: MAGNESIUM SULFATE / D5W 1 GM/100 ML BAG IV ONE (19:00)
[2022-08-20] MEDS ORDERED: FUROSEMIDE 20 MG TAB PO ONE (19:16)
[2022-08-20] MEDS: FORMOTEROL 20 MCG/2 ML VIAL INH SCH (19:19)
--- NOTE | 2022-08-20 19:43 | Communication Note ---
Date of Service: August 20, 2022 At approximately 6 PM, patient had sustained SVT in the 130s. Reviewed EKG. Does not appear to be MAT. This then self resolved and he is running in the 80s. We will replete mag of 1.7 with 2 bags. Restarting home regimen of Lasix which patient states is 20 mg total in the morning and 10 mg total at 1 PM. Will need to verify [facility] records regarding dose of Procrit (missed outpatient dose) before administering.
[2022-08-20] MEDS: ATORVASTATIN 20 MG TAB PO SCH (23:47)
[2022-08-20] MEDS: AZITHROMYCIN 250 MG TAB PO SCH (23:49)
[2022-08-21] MEDS ORDERED: MAGNESIUM SULFATE / D5W 1 GM/100 ML BAG IV ONE
[2022-08-21] MEDS: INSULIN ASPART PER UNIT CHARGE SC SCH ×6 (01:05→21:26)
[2022-08-21] MEDS: CEFEPIME 2,000 MG in SYRINGE 0 ML IV SCH ×2 (01:06→13:38)
[2022-08-21] MEDS: methylPREDNISolone 40 MG in SYRINGE 0 ML IV SCH ×4 (01:06→21:20)
[2022-08-21] MEDS: ALBUT/IPRATROP 3MG/0.5MG NEB 3 ML VIAL NEB SCH ×6 (02:23→22:19)
--- NOTE | 2022-08-21 07:01 | Electrocardiogram Report ---
Test Reason : Blood Pressure : / mmHG Vent. Rate : 132 BPM Atrial Rate : 069 BPM P-R Int : 000 ms QRS Dur : 108 ms QT Int : 316 ms P-R-T Axes : 000 085 014 degrees QTc Int : 468 ms Supraventricular tachycardia with occasional Premature ventricular complexes Nonspecific ST and T wave abnormality Abnormal ECG When compared with ECG of 19-AUG-2022 19:22, Premature ventricular complexes are now Present Aberrant conduction is no longer Present Non-specific change in ST segment in Inferior leads Non-specific change in ST segment in Anterior leads Confirmed by Rahat Seay ([id number]) on 08/21/2022 7:01:17 AM Referred By: REFERRED SELF Confirmed By:Christos Seay
[2022-08-21 07:10] LABS: Hemoglobin 8.6 g/dl (14.0-18.0); Mean Corpuscular Hemoglobin 27.5 pg (25.0-34.0); Mean Corpuscular Hgb Conc 31.9 g/dL (32.0-36.0); Mean Corpuscular Volume 86.3 fL (80.0-100.0); Platelet Count 376 K/uL (130-400); RDW Coefficient of Variation 16.4 % (11.5-14.5); Red Blood Count 3.13 M/uL (4.70-6.10); White Blood Count 7.99 K/ul (4.8-10.8)
--- NOTE | 2022-08-21 07:28 | Hospitalist Progress Note ---
Date of Service August 21, 2022 Assessment & Plan (1) Acute exacerbation of chronic obstructive pulmonary disease: Plan: Kristopher Louie is a 77-year-old male with a PMH significant for severe COPD with chronic hypoxemic respiratory failure on 3L NC at baseline, WENDY (not using CPAP), CAD, SVT, DM II, hyperlipidemia, stage 3 CKD, and anemia who was admitted to [facility] on 08/19 for multifocal pneumonia and COPD exacerbation. Acute on Chronic Hypoxic Respiratory Failure due to Multifocal Pneumonia and COPD Exacerbation, improving - received Zosyn in ED and transitioned to Cefepime/Azithromycin - continue (day 3) - decrease SoluMedrol from 40mg Q8H to 40mg BID for today - plan for transition to Prednisone taper tomorrow if continue to improve. - continue home inhalers - continue pulmonary toilet with scheduled/PRN nebs, Mucinex, IS, flutter valve Left Upper Lobe Pulmonary Mass CT chest on 08/19 showing "spiculated left upper lobe mass measuring up to 5.4 cm, concerning for bronchogenic carcinoma" - Pulmonology consulted - patient NPO for possible bronchoscopy/biopsy tomorrow Normocytic Anemia Hgb 8.6 baseline Hgb around 9-10. Suspect due to CKD. - will give Procrit 20,000 units today, as patient has been getting this medication/dose ~every 2 weeks (Hgb threshold <11) - Continue home ferrous sulfate - Monitor daily CBC RICHIE superimposed on CKD Stage 3a, RICHIE resolved RICHIE likely due to decreased PO intake in context of pneumonia/COPD exacerbation. - continue Lokelma - trend BMP daily Chronic HFpEF Currently euvolemic. - home Lasix restarted on 08/20 once RICHIE resolved Hypertension - Continue home diltiazem, and resume home HCTZ today (RICHIE resolved) Type 2 Diabetes Mellitus - SSI and Lantus 20 units BID, hold home PO meds while hospitalized WENDY -Not on BiPAP or CPAP at home Hyperlipidemia, CAD -Continue home atorvastatin and baby ASA GERD - continue home Protonix Diet: HH, DM2. DVT ppx: hold Heparin SQ due to bronchoscopy tomorrow Dispo: Med/tele Code Status: Full Code (2) WENDY (obstructive sleep apnea): (3) Acute on chronic respiratory failure with hypoxia: (4) Acute kidney injury superimposed on CKD: (5) CKD (chronic kidney disease) stage 3, GFR 30-59 ml/min: Admission and Anticipated Discharge Date Admission Date: August 19, 2022 Supervising Physician Co-Signing Physician Notes ATTESTATION I also saw the patient and confirmed roca portions of the history and exam. I agree with the impression and plan in the resident documentation, and as summarized below. Upon our late my exam, the patient is seated in bed. Watching TV. States he feels little better in terms of his breathing when compared to yesterday. EXAM 160/77, 76, 18, 36.5, 92% on nasal cannula at 4 L/min Alert and oriented. No acute distress appreciated. Membranes moist Lungs with diffuse expiratory wheezing, some improvement in overall air exchange compared to yesterday Heart regular rate and rhythm DATA Labs White blood cell count 7.99, hemoglobin 8.6 Sodium 135, potassium 4.0, BUN 44, creatinine 1.[address] of the chest completed yesterday shows a spiculated left upper lobe mass measuring 5.4 cm, concerning for bronchogenic carcinoma versus focal pneumonia. There are patchy bilateral airspace opacities with more dependent opacities at the lung bases concerning for a multifocal pneumonia. Micro Blood cultures drawn 08/19/2022 showed no growth at 24 hours IMPRESSION & PLAN COPD exacerbation Multifocal pneumonia Pulmonary mass IV steroids; consider transition to p.o. prednisone tomorrow Continue cefepime and azithromycin Appreciate pulmonary consultation Potential bronchoscopy in AM Additional per resident documentation Subjective Breathing is better today, feels close to baseline. Currently requiring 4L at rest and 6L with ambulation (uses 3L chronically at home). Review of Systems Review of Systems: All systems reviewed & are unremarkable except as noted in HPI & below Physical Exam Physical Exam: General: A&Ox3. NAD. Cooperative. HEENT: Atraumatic, normocephalic. Pulm: +bilateral expiratory wheezes but with good aeration. +bibasilar crackles. Symmetrical chest rise. No increase work of breathing. No respiratory distress. Cardiac: RRR, -mrg. Radial pulses intact and symmetrical. No LE edema. Abdominal: soft, non-tender, non-distended, BS x 4 Skin: warm, dry, no rash Results & Data Results & Data Vital Signs (Past 12 Hours) Vital Signs Temp Pulse Pulse Resp BP BP Pulse Ox 08/21/22 07:10 77 08/21/22 02:23 80 20 91 08/20/22 22:37 36.4 C L 85 18 147/67 H 90 08/20/22 22:18 82 18 92 08/20/22 19:46 36.6 C 91 H 18 139/68 91 O2 Del Method O2 Flow Rate 08/21/22 07:10 08/21/22 02:23 Nasal Cannula 4 08/20/22 22:37 Nasal Cannula 4 08/20/22 22:18 Nasal Cannula 4 08/20/22 19:46 Nasal Cannula 4 Resident Activity Tracking Resident Involvement: Resident Care Provided Care Provided: Adult Hospital Medicine
[2022-08-21 07:29] LABS: BUN Creatinine Ratio 30.6 (10-20); Calcium 8.8 mg/dl (8.6-10.3); Creatinine Clr Calc Pharmacy 44.3 ml/min; Est GFR (African American) 54.7 ml/min; Est GFR (Non-African American) 47.2 ml/min; Magnesium 2.3 mg/dl (1.7-2.4)
[2022-08-21 07:36] LABS: Basophils # (auto) 0.01 K/uL (0-0.2); Basophils % (auto) 0.1 %; Immature Granulocytes # (auto) 0.05 K/uL (0.01-0.20); Immature Granulocytes % (auto) 0.6 %; Lymphocytes # (auto) 0.29 K/uL (1.2-3.4); Lymphocytes % (auto) 3.6 %; Monocytes # (auto) 0.09 K/uL (0.11-0.59); Monocytes % (auto) 1.1 %; Neutrophils # (auto) 7.55 K/uL (1.40-6.50); Neutrophils % (auto) 94.6 %
[2022-08-21] MEDS: FORMOTEROL 20 MCG/2 ML VIAL INH SCH ×2 (07:37→19:17)
[2022-08-21] MEDS: BUDESONIDE 0.5 MG/2 ML VIAL (PULMICORT) INH SCH ×2 (07:37→19:17)
[2022-08-21] MEDS: FERROUS SULFATE 325 MG TAB PO SCH (08:01)
[2022-08-21] MEDS: MAGNESIUM OXIDE 400 MG TAB PO SCH ×2 (08:01→21:21)
[2022-08-21] MEDS: dilTIAZem HCL 240 MG CAPCR PO SCH ×2 (08:01→21:22)
[2022-08-21] MEDS: guaiFENesin 600 MG TABCR PO SCH ×2 (08:01→21:23)
[2022-08-21] MEDS: LANTUS PER UNIT CHARGE SQ SCH ×2 (08:02→21:26)
[2022-08-21] MEDS: HEPARIN SOD 5,000 UNIT/0.5 ML VIAL SQ SCH (08:02)
[2022-08-21] MEDS: UMECLIDINIUM BROMIDE 62.5MCG/BLISTER 7 PUFFS/INHALER INH SCH (08:03)
[2022-08-21] MEDS ORDERED: EPOETIN ALFA 20,000 UNITS/ML VIAL IV STA (08:38)
[2022-08-21] MEDS: PANTOprazole 40 MG TAB PO SCH (08:58)
[2022-08-21] MEDS: FUROSEMIDE 20 MG TAB PO SCH ×2 (10:39→17:52)
--- NOTE | 2022-08-21 11:21 | Pulmonology Progress Note ---
Date of Service August 21, 2022 Assessment & Plan (1) COPD exacerbation: Plan: Continue steroids for total 5 days. Can transition to p.o. Continue ICS/LABA nebulizers. (2) Pneumonia: Plan: Sputum cultures ordered, but not obtained. Blood cultures negative to date. Continue cefepime and azithromycin. (3) Multiple pulmonary nodules determined by computed tomography of lung: Plan: Multiple pulmonary nodules are seen on this latest CT chest with the largest in the left upper lobe region measuring over 4 cm. The growth pattern has been somewhat unusual as a CT in December 2021 revealed a dense subsolid nodular component in the same area and a subsequent CT in March revealed a less dense groundglass opacity with a small subsolid component in this region. Now we have a much larger solid density. Unclear whether this represents an inflammatory area versus true malignancy. Bronchoscopic sampling with biopsy may be required early next week. No significant hilar or mediastinal adenopathy noted on this noncontrast CT chest. N.p.o. after midnight. Subcu heparin on hold. Plan Thank you for the consultation. We will continue to follow. Admission and Anticipated Discharge Date Admission Date: August 19, 2022 Subjective Patient is improving and close to his baseline. He uses 4 to 6 L of oxygen at home. He denies any fevers or chills. Minimal cough. He is walk from his bed to the bathroom with some slight shortness of breath which is close to baseline. Review of Systems Review of Systems: All systems reviewed & are unremarkable except as noted in HPI & below Physical Exam Constitutional: Elderly-appearing male no apparent distress. Eyes: PERRL, conjunctivae normal, anicteric sclerae Respiratory: Lung sounds diminished bilaterally. Prolonged phase of exhalation. Mild crackles bilaterally. Cardiovascular: Normal rate and rhythm. Trace edema in the lower extremities. Gastrointestinal (Abdomen): normal bowel sounds, soft, nontender, no hepatosplenomegaly Neurologic: CN's II-XI intact bilaterally Psychiatric: A+Ox3, euthymic affect Results & Data Results & Data Vital Signs (Past 12 Hours) Vital Signs Temp Pulse Pulse Resp BP Pulse Ox O2 Del Method 08/21/22 09:31 Nasal Cannula 08/21/22 07:38 76 18 92 Nasal Cannula 08/21/22 07:35 36.5 C 76 18 160/77 H 92 Nasal Cannula 08/21/22 07:10 77 08/21/22 02:23 80 20 91 Nasal Cannula O2 Flow Rate 08/21/22 09:31 6 08/21/22 07:38 4 08/21/22 07:35 4 08/21/22 07:10 08/21/22 02:23 4 PG Care Time/CCT Total # of Minutes Spent Total Time Spent with Patient: Total time spent is greater than 50% in coordination of care (as documented) at patient's floor/unit and/or counseling patient: Coding Level of Care Code 52228 SUB INP/OBS CARE 2/35MIN Diagnoses COPD exacerbation J44.1 Pneumonia J18.9 Multiple pulmonary nodules determined by computed tomography of lung R91.8
[2022-08-21] MEDS: ATORVASTATIN 20 MG TAB PO SCH (21:21)
[2022-08-21] MEDS: AZITHROMYCIN 250 MG TAB PO SCH (21:22)
[2022-08-21] MEDS: hydroCHLOROthiazide 25 MG TAB PO SCH (22:09)
[2022-08-22] MEDS: ALBUT/IPRATROP 3MG/0.5MG NEB 3 ML VIAL NEB SCH ×6 (02:10→22:48)
[2022-08-22] MEDS: CEFEPIME 2,000 MG in SYRINGE 0 ML IV SCH ×2 (03:01→13:15)
[2022-08-22] MEDS ORDERED: Nursing to Pharmacy Communication SCH (03:30)
[2022-08-22 06:26] LABS: Hematocrit (blood only) 28.5 % (42.0-52.0); Mean Corpuscular Hemoglobin 27.7 pg (25.0-34.0); Mean Corpuscular Hgb Conc 31.6 g/dL (32.0-36.0); Mean Corpuscular Volume 87.7 fL (80.0-100.0); Mean Platelet Volume 9.9 fL (9.4-12.4); Platelet Count 388 K/uL (130-400); RDW Coefficient of Variation 16.6 % (11.5-14.5); RDW Standard Deviation 53.6 fL (36.4-46.3); Red Blood Count 3.25 M/uL (4.70-6.10); White Blood Count 9.93 K/ul (4.8-10.8)
[2022-08-22 06:39] LABS: BUN Creatinine Ratio 31.4 (10-20); Calcium 8.8 mg/dl (8.6-10.3); Creatinine Clr Calc Pharmacy 37.1 ml/min; Est GFR (African American) 44.1 ml/min; Magnesium 2.3 mg/dl (1.7-2.4); Potassium 4.3 mmol/L (3.5-5.1)
[2022-08-22] MEDS: INSULIN ASPART PER UNIT CHARGE SC SCH ×4 (06:47→20:48)
[2022-08-22 07:01] LABS: Basophils # (auto) 0.01 K/uL (0-0.2); Basophils % (auto) 0.1 %; Immature Granulocytes # (auto) 0.12 K/uL (0.01-0.20); Immature Granulocytes % (auto) 1.2 %; Lymphocytes # (auto) 0.29 K/uL (1.2-3.4); Lymphocytes % (auto) 2.9 %; Monocytes # (auto) 0.12 K/uL (0.11-0.59); Monocytes % (auto) 1.2 %; Neutrophils # (auto) 9.39 K/uL (1.40-6.50); Neutrophils % (auto) 94.6 %; Polychromasia 1+
[2022-08-22] MEDS: BUDESONIDE 0.5 MG/2 ML VIAL (PULMICORT) INH SCH ×2 (07:07→19:16)
[2022-08-22] MEDS: FORMOTEROL 20 MCG/2 ML VIAL INH SCH ×2 (07:07→19:16)
[2022-08-22] MEDS: methylPREDNISolone 40 MG in SYRINGE 0 ML IV SCH (07:22)
[2022-08-22] MEDS: PANTOprazole 40 MG TAB PO SCH (07:23)
[2022-08-22] MEDS: MAGNESIUM OXIDE 400 MG TAB PO SCH ×2 (07:23→20:48)
[2022-08-22] MEDS: hydroCHLOROthiazide 25 MG TAB PO SCH ×2 (07:23→20:49)
[2022-08-22] MEDS: guaiFENesin 600 MG TABCR PO SCH ×3 (07:24→20:46)
[2022-08-22] MEDS: dilTIAZem HCL 240 MG CAPCR PO SCH ×2 (07:24→20:46)
[2022-08-22] MEDS: UMECLIDINIUM BROMIDE 62.5MCG/BLISTER 7 PUFFS/INHALER INH SCH (07:26)
--- NOTE | 2022-08-22 08:30 | Pulmonology Progress Note ---
Date of Service August 22, 2022 Assessment & Plan (1) COPD exacerbation: (2) Pneumonia: (3) Multiple pulmonary nodules determined by computed tomography of lung: Plan Impression: 77-year-old male with advanced COPD admitted with multifocal airspace opacities and hypoxemic respiratory failure. He is being treated empirically for pneumonia with some clinical improvement. His last echocardiogram showed moderate pulmonary hypertension. Recommendations: 1. Hypoxemic respiratory failure: Improved clinically but the patient remains in mild respiratory distress. Continue supplemental oxygen titrated to keep saturations at or above 90%. Increase ambulation as tolerated. Out of bed to chair as much as possible. Blood pressure control per primary service 2. COPD: Patient does not appear overtly bronchospastic currently. He is currently on DuoNebs, Pulmicort, Perforomist, and Lasix. Transition steroids to oral with plans for 5 days of prednisone 3. Pneumonia: Possibility of aspiration exists. Will order speech therapy evaluation for swallow study. Prior video swallowing 2019 demonstrated esophageal dysfunction. Complete 7-day course of antimicrobial therapy. Currently on oral azithromycin and cefepime 4. Abnormal CT scan: Differential is broad but given the diffuse nature of the patient's pulmonary opacities, would favor an infectious or inflammatory et iology such as pneumonia or aspiration despite the normal white blood cell count and lack of fever. Await swallow evaluation. Given the patient's respiratory distress as well as pulmonary hypertension, I think deferring bronchoscopy with tissue sampling at this point time is reasonable. Would recommend that he complete a course of antibiotics and get medically stabilized with short interval follow-up CT scan in 4 to 6 weeks. If the abnormalities persist, could consider additional intervention at that point in time. Continue Mucinex but increase the dose to 1200 mg twice a day. We will add flutter valve for pulmonary clearance as well as hypertonic saline neb The above recommendations and plan were discussed with the patient in detail. Questions were answered to the best my ability. He expressed understanding and is in agreement with plan as outlined3 50 min spent reviewing case and coordinating care for complex patient. Admission and Anticipated Discharge Date Admission Date: August 19, 2022 Subjective Patient seen and examined. EMR reviewed. Discussed with off going goods layer and with patient at bedside. The patient reports that his breathing is slightly better. He continues to demonstrate mild respiratory distress with mild baseline tachypnea. He is not coughing excessively and is expectorating some clearish phlegm. No hemoptysis. No fevers chills or night sweats. He is not really been ambulatory. Review of Systems Review of Systems: All systems reviewed & are unremarkable except as noted in Subjective Physical Exam Constitutional: WD/WN, vitals as above Neck: trachea midline, no thyromegaly Respiratory: + labored breathing and + tachypneic Auscultation: + diminished lung sounds; no crackles and no wheezes Cardiovascular: RRR, no murmur, no edema Gastrointestinal (Abdomen): normal bowel sounds, soft, nontender, no hepat osplenomegaly Musculoskeletal: Extremities: extremities normal to inspection Skin: no rashes, warm and dry Neurologic: Nonfocal exam Lymphatic: no cervical lymphadenopathy Results & Data Results & Data Vital Signs (Past 12 Hours) Vital Signs Temp Pulse Pulse Resp BP Pulse Ox O2 Del Method 08/22/22 08:04 74 08/22/22 07:52 Nasal Cannula 08/22/22 07:39 36.5 C 74 18 182/81 H 93 Nasal Cannula 08/22/22 07:09 74 20 91 Nasal Cannula 08/22/22 02:50 36.4 C L 83 18 169/66 H 93 Nasal Cannula 08/22/22 02:10 71 91 Nasal Cannula 08/21/22 22:02 68 08/21/22 22:50 36.8 C 69 18 173/73 H 95 Nasal Cannula 08/21/22 22:19 22 84 L Nasal Cannula O2 Flow Rate 08/22/22 08:04 08/22/22 07:52 6 08/22/22 07:39 4 08/22/22 07:09 4 08/22/22 02:50 4 08/22/22 02:10 4 08/21/22 22:02 08/21/22 22:50 4 08/21/22 22:19 4 Laboratory Results 08/22/22 05:54 08/22/22 05:54 PG Care Time/CCT Total # of Minutes Spent Total Time Spent with Patient: Total time spent is greater than 50% in coordination of care (as documented) at patient's floor/unit and/or counseling patient: Coding Level of Care Code 15427 SUB INP/OBS CARE 3/50MIN Diagnoses COPD exacerbation J44.1 Pneumonia J18.9 Multiple pulmonary nodules determined by computed tomography of lung R91.8
[2022-08-22] MEDS ORDERED: predniSONE 20 MG TAB PO SCH (09:00)
[2022-08-22] MEDS: LANTUS PER UNIT CHARGE SQ SCH ×2 (09:06→20:45)
[2022-08-22] MEDS: FUROSEMIDE 40 MG TAB PO SCH (09:06)
[2022-08-22] MEDS: ASPIRIN 81 MG CHEW PO SCH (09:06)
[2022-08-22] MEDS: SODIUM ZIRCONIUM CYCLOSILICATE 10 GM PACKET PO SCH (12:48)
--- NOTE | 2022-08-22 14:36 | Pharmacy Report ---
Pharmacy Glycemic Short Note 2 - Date of Service August 22, 2022 - Glycemic Short BSG Results (Last 24 hours): 08/21/22 08/21/22 08/22/22 16:14 20:32 05:54 Glucose 230 H POC Glucose 162 H 202 H 08/22/22 08/22/22 08/22/22 06:31 08:09 11:57 Glucose POC Glucose 229 H 237 H 305 H* 08/22/22 11:58 Glucose POC Glucose 285 H OUTPATIENT ANTIDIABETIC REGIMEN: * Farxiga 10 mg PO daily * Metformin 1000 mg PO BIDM * Semaglutide 14 mg PO daily HbA1c: 6.8% (08/20/22) ASSESSMENT: 08/22/22 * BSGs yesterday were [phone] mg/dL. Patient received 94 units of insulin (40 units of basal and 54 units of bolus). * Patient was NPO today for potential procedure but that was cancelled. * BSGs today are 229-285 mg/dL. Unclear reason as steroids are being tapered. * Patient received Solu-Medrol 40 mg IV x 1 and then was transitioned to prednisone 40 mg PO daily starting 08/23/22. * Due to change in steroids, will continue current regimen. BACKGROUND * TS is a 77 year old male who presented to ED overnight with worsening shortness of breath * Received Solu-medrol 125 mg IV x 1, resulting in hyperglycemia (374 mg/dL) * Ordered Solu-medrol 40 mg IV q8h ongoing * Prior inpatient glycemic data while on steroids suggests aggressive weight- based insulin dosing will be needed PLAN FOR INPATIENT GLYCEMIC CONTROL: * Hold outpatient oral diabetes medications * Basal insulin * Lantus 20 units SQ BID * Bolus insulin * NovoLog per scale ACHS or Q6hrs while NPO * Goal Range: Low 110 mg/dL - High 140 mg/dL * Correction Factor: 15 mg/dL/unit * Nutritional / Prandial insulin per carb ratio of 1 unit per 5 grams CHO consumed
--- NOTE | 2022-08-22 15:16 | Hospitalist Progress Note ---
Date of Service August 22, 2022 Assessment & Plan (1) Acute exacerbation of chronic obstructive pulmonary disease: Plan: 77-year-old male with a PMHx significant for severe COPD with chronic hypoxemic respiratory failure on 3L NC at baseline, WENDY (not using CPAP), CAD, SVT, DM II, hyperlipidemia, stage 3 CKD, and anemia who was admitted to [facility] on 08/19 for multifocal pneumonia and COPD exacerbation. Acute on Chronic Hypoxic Respiratory Failure due to Multifocal Pneumonia and COPD Exacerbation, improving - received Zosyn in ED and transitioned to Cefepime/Azithromycin - continue (day 4 of 7) - decrease SoluMedrol from 40mg BID to prednisone 40mg daily - plan for transition to Prednisone taper if continue to improve. - continue home inhalers - continue pulmonary toilet with scheduled/PRN nebs, Mucinex, IS, flutter valve Left Upper Lobe Pulmonary Mass - CT chest on 08/19 showing "spiculated left upper lobe mass measuring up to 5.4 cm. Some concern for bronchogenic carcinoma however cannot rule out infec tious/inflammatory etiology - Pulmonology consulted - swallow evaluation pending - recommend that he complete a course of antibiotics and get medically stabilized with short interval follow-up CT scan in 4 to 6 weeks. Can defer bronchoscopy till then. Normocytic Anemia Hgb 8.6 baseline Hgb around 9-10. Suspect due to CKD. - given Procrit 20,000 units (08/21), as patient has been getting this medication/dose ~every 2 weeks (Hgb threshold <11) - Continue home ferrous sulfate - Monitor daily CBC RICHIE superimposed on CKD Stage 3a, improved RICHIE likely due to decreased PO intake in context of pneumonia/COPD exacerbation. - continue Lokelma - trend BMP daily Chronic HFpEF Currently euvolemic. - home Lasix restarted on 08/20 Hypertension - Continue home diltiazem and HCTZ Type 2 Diabetes Mellitus - SSI and Lantus 20 units BID, hold home PO meds while hospitalized WENDY -Not on BiPAP or CPAP at home Hyperlipidemia, CAD -Continue home atorvastatin and baby ASA GERD - continue home Protonix Diet: HH, DM2 DVT ppx: restarted Heparin SQ Dispo: Med tele Code Status: Full Code (2) WENDY (obstructive sleep apnea): (3) Acute on chronic respiratory failure with hypoxia: (4) Acute kidney injury superimposed on CKD: (5) CKD (chronic kidney disease) stage 3, GFR 30-59 ml/min: Admission and Anticipated Discharge Date Admission Date: August 19, 2022 Supervising Physician Co-Signing Physician Notes I personally examined the patient and verified all roca points of history and exam, discussed case, and agree with decision making with Dr Herbert Slowly feeling better. For swallow test tomorrow. Pulmonary input appreciated. Vitals noted, in general he is awake and alert pleasant no distress. HEENT normocephalic atraumatic mucous membranes moist. Breathing unlabored no accessory muscle use good effort. Skin shows no rashes no pallor or icterus. Neuro without focal deficits. CBC, basic metabolic panel reviewed COPD exacerbation/pneumonia/lung masswith acute on chronic hypoxic respiratory failurecontinue antibiotics and supportive care. Agree right now is probably too tenuous for bronchoscopy, quite reasonable to treat and work-up the mass later. Otherwise as above. Subjective Patient seen at bedside this morning. Breathing improving each day. On 3L O2 at home which he is now very near. Denies significant sob, chest pain, fever, abd pain, N/V/D. Review of Systems Review of Systems: All systems reviewed & are unremarkable except as noted in HPI & below Physical Exam Physical Exam: General: A&Ox3. NAD. Cooperative. HEENT: Atraumatic, normocephalic. Pulm: +bilateral expiratory wheezes but with good aeration. No crackles. Symmetrical chest rise. No increase work of breathing. No respiratory distress. Cardiac: RRR, -mrg. Radial pulses intact and symmetrical. No LE edema. Abdominal: soft, non-tender, non-distended Skin: warm, dry, no rash Results & Data Results & Data Vital Signs (Past 12 Hours) Vital Signs Temp Pulse Pulse Resp BP BP Pulse Ox 08/22/22 15:13 36.4 C L 74 20 154/71 H 93 08/22/22 11:39 36.4 C L 89 20 151/68 H 90 08/22/22 10:58 83 20 92 08/22/22 08:04 74 08/22/22 07:52 08/22/22 07:39 36.5 C 74 18 182/81 H 93 08/22/22 07:09 74 20 91 O2 Del Method O2 Flow Rate 08/22/22 15:13 Nasal Cannula 4 08/22/22 11:39 Nasal Cannula 4 08/22/22 10:58 Nasal Cannula 4 08/22/22 08:04 08/22/22 07:52 Nasal Cannula 6 08/22/22 07:39 Nasal Cannula 4 08/22/22 07:09 Nasal Cannula 4 Laboratory Results 08/22/22 08/22/22 08/22/22 Range/Units 11:58 11:57 08:09 WBC (4.8-10.8) K/ul RBC (4.70-6.10) M/uL Hgb (14.0-18.0) g/dl Hct (42.0-52.0) % MCV (80.0-100.0) fL MCH (25.0-34.0) pg MCHC (32.0-36.0) g/dL RDW Std Deviation (36.4-46.3) fL RDW Coeff of Arnoldo (11.5-14.5) % Plt Count (130-400) K/uL MPV (9.4-12.4) fL Immature Gran % (Auto) % Neut % (Auto) % Lymph % (Auto) % [place] % (Auto) % Eos % (Auto) % Baso % (Auto) % Neut # (Auto) (1.40-6.50) K/uL Lymph # (Auto) (1.2-3.4) K/uL [place] # (Auto) (0.11-0.59) K/uL Eos # (Auto) (0-0.50) K/uL Baso # (Auto) (0-0.2) K/uL Immature Gran # (Auto) (0.01-0.20) K/uL Polychromasia Sodium (136-145) mmol/L Potassium (3.5-5.1) mmol/L Chloride (98-107) mmol/L Carbon Dioxide (21-32) mmol/L Anion Gap (3-11) BUN (6-23) mg/dl Creatinine (0.6-1.4) mg/dl Est Cr Clr Drug Dosing ml/min Est GFR ( Amer) ml/min Est GFR (Non-Af Amer) ml/min BUN/Creatinine Ratio (10-20) Glucose (70-99(Fasting)) mg/dl POC Glucose 285 H 305 H* 237 H (70-99) mg/dl Calcium (8.6-10.3) mg/dl Magnesium (1.7-2.4) mg/dl 08/22/22 08/22/22 08/22/22 Range/Units 06:31 05:54 05:54 WBC 9.93 (4.8-10.8) K/ul RBC 3.25 L (4.70-6.10) M/uL Hgb 9.0 L (14.0-18.0) g/dl Hct 28.5 L (42.0-52.0) % MCV 87.7 (80.0-100.0) fL MCH 27.7 (25.0-34.0) pg MCHC 31.6 L (32.0-36.0) g/dL RDW Std Deviation 53.6 H (36.4-46.3) fL RDW Coeff of Arnoldo 16.6 H (11.5-14.5) % Plt Count 388 (130-400) K/uL MPV 9.9 (9.4-12.4) fL Immature Gran % (Auto) 1.2 % Neut % (Auto) 94.6 % Lymph % (Auto) 2.9 % [place] % (Auto) 1.2 % Eos % (Auto) 0.0 % Baso % (Auto) 0.1 % Neut # (Auto) 9.39 H (1.40-6.50) K/uL Lymph # (Auto) 0.29 L (1.2-3.4) K/uL [place] # (Auto) 0.12 (0.11-0.59) K/uL Eos # (Auto) 0.00 (0-0.50) K/uL Baso # (Auto) 0.01 (0-0.2) K/uL Immature Gran # (Auto) 0.12 (0.01-0.20) K/uL Polychromasia 1+ Sodium 133 L (136-145) mmol/L Potassium 4.3 (3.5-5.1) mmol/L Chloride 95 L (98-107) mmol/L Carbon Dioxide 30 (21-32) mmol/L Anion Gap 8 (3-11) BUN 54 H (6-23) mg/dl Creatinine 1.72 H (0.6-1.4) mg/dl Est Cr Clr Drug Dosing 37.1 ml/min Est GFR ( Amer) 44.1 ml/min Est GFR (Non-Af Amer) 38.0 ml/min BUN/Creatinine Ratio 31.4 H (10-20) Glucose 230 H (70-99(Fasting)) mg/dl POC Glucose 229 H (70-99) mg/dl Calcium 8.8 (8.6-10.3) mg/dl Magnesium 2.3 (1.7-2.4) mg/dl 08/21/22 08/21/22 Range/Units 20:32 16:14 WBC (4.8-10.8) K/ul RBC (4.70-6.10) M/uL Hgb (14.0-18.0) g/dl Hct (42.0-52.0) % MCV (80.0-100.0) fL MCH (25.0-34.0) pg MCHC (32.0-36.0) g/dL RDW Std Deviation (36.4-46.3) fL RDW Coeff of Arnoldo (11.5-14.5) % Plt Count (130-400) K/uL MPV (9.4-12.4) fL Immature Gran % (Auto) % Neut % (Auto) % Lymph % (Auto) % [place] % (Auto) % Eos % (Auto) % Baso % (Auto) % Neut # (Auto) (1.40-6.50) K/uL Lymph # (Auto) (1.2-3.4) K/uL [place] # (Auto) (0.11-0.59) K/uL Eos # (Auto) (0-0.50) K/uL Baso # (Auto) (0-0.2) K/uL Immature Gran # (Auto) (0.01-0.20) K/uL Polychromasia Sodium (136-145) mmol/L Potassium (3.5-5.1) mmol/L Chloride (98-107) mmol/L Carbon Dioxide (21-32) mmol/L Anion Gap (3-11) BUN (6-23) mg/dl Creatinine (0.6-1.4) mg/dl Est Cr Clr Drug Dosing ml/min Est GFR ( Amer) ml/min Est GFR (Non-Af Amer) ml/min BUN/Creatinine Ratio (10-20) Glucose (70-99(Fasting)) mg/dl POC Glucose 202 H 162 H (70-99) mg/dl Calcium (8.6-10.3) mg/dl Magnesium (1.7-2.4) mg/dl Resident Activity Tracking Resident Involvement: Resident Care Provided Care Provided: Adult [facility]
--- NOTE | 2022-08-22 18:13 | Billing Data ---
Date of Service August 22, 2022 Coding Level of Care Code 75221 SUB INP/OBS CARE
[2022-08-22] MEDS: SODIUM CHLOR 7% 4 ML NEB NEB SCH (19:16)
[2022-08-22] MEDS: AZITHROMYCIN 250 MG TAB PO SCH (20:47)
[2022-08-22] MEDS: ATORVASTATIN 20 MG TAB PO SCH (20:48)
[2022-08-22] MEDS: HEPARIN SOD 5,000 UNIT/0.5 ML VIAL SQ SCH (20:56)
[2022-08-22] MEDS ORDERED: FUROSEMIDE 20 MG TAB PO SCH (21:00)
[2022-08-23] MEDS: CEFEPIME 2,000 MG in SYRINGE 0 ML IV SCH ×2 (02:44→12:34)
[2022-08-23] MEDS: ALBUT/IPRATROP 3MG/0.5MG NEB 3 ML VIAL NEB SCH ×4 (02:48→15:24)
[2022-08-23 06:17] LABS: Basophils # (auto) 0.03 K/uL (0-0.2); Basophils % (auto) 0.3 %; Hematocrit (blood only) 27.2 % (42.0-52.0); Hemoglobin 8.8 g/dl (14.0-18.0); Immature Granulocytes # (auto) 0.29 K/uL (0.01-0.20); Immature Granulocytes % (auto) 2.6 %; Lymphocytes # (auto) 0.48 K/uL (1.2-3.4); Lymphocytes % (auto) 4.4 %; Mean Corpuscular Hgb Conc 32.4 g/dL (32.0-36.0); Mean Corpuscular Volume 86.6 fL (80.0-100.0); Mean Platelet Volume 9.8 fL (9.4-12.4); Monocytes # (auto) 0.62 K/uL (0.11-0.59); Monocytes % (auto) 5.6 %; Neutrophils # (auto) 9.57 K/uL (1.40-6.50); Neutrophils % (auto) 87.1 %; Nucleated RBC # (auto) 0.02 K/uL (0-0.12); Nucleated RBC % (auto) 0.2 %; Platelet Count 388 K/uL (130-400); RDW Coefficient of Variation 16.8 % (11.5-14.5); RDW Standard Deviation 52.9 fL (36.4-46.3); Red Blood Count 3.14 M/uL (4.70-6.10); White Blood Count 10.99 K/ul (4.8-10.8)
[2022-08-23 06:40] LABS: BUN Creatinine Ratio 36.9 (10-20); Calcium 8.7 mg/dl (8.6-10.3); Est GFR (African American) 39.9 ml/min; Est GFR (Non-African American) 34.4 ml/min; Magnesium 2.3 mg/dl (1.7-2.4); Potassium 4.1 mmol/L (3.5-5.1)
[2022-08-23] MEDS: BUDESONIDE 0.5 MG/2 ML VIAL (PULMICORT) INH SCH (07:09)
[2022-08-23] MEDS: FORMOTEROL 20 MCG/2 ML VIAL INH SCH (07:09)
--- NOTE | 2022-08-23 07:09 | Hospitalist Progress Note ---
Date of Service August 23, 2022 Assessment & Plan (1) Acute exacerbation of chronic obstructive pulmonary disease: Plan: 77-year-old male with a PMHx significant for severe COPD with chronic hypoxemic respiratory failure on 3L NC at baseline, WENDY (not using CPAP), CAD, SVT, DM II, hyperlipidemia, stage 3 CKD, and anemia who was admitted to [facility] on 08/19 for multifocal pneumonia and COPD exacerbation. Acute on Chronic Hypoxic Respiratory Failure due to Multifocal Pneumonia and COPD Exacerbation, improving - received Zosyn in ED and transitioned to Cefepime/Azithromycin - continue (day 4 of 7) - decrease SoluMedrol from 40mg BID to prednisone 40mg daily - plan for transition to Prednisone taper if continue to improve. - continue home inhalers - continue pulmonary toilet with scheduled/PRN nebs, Mucinex, IS, flutter valve Left Upper Lobe Pulmonary Mass - CT chest on 08/19 showing "spiculated left upper lobe mass measuring up to 5.4 cm. Some concern for bronchogenic carcinoma however cannot rule out infec tious/inflammatory etiology - Pulmonology consulted - swallow evaluation pending - recommend that he complete a course of antibiotics and get medically stabilized with short interval follow-up CT scan in 4 to 6 weeks. Can defer bronchoscopy till then. Normocytic Anemia Hgb 8.6 baseline Hgb around 9-10. Suspect due to CKD. - given Procrit 20,000 units (08/21), as patient has been getting this medication/dose ~every 2 weeks (Hgb threshold <11) - Continue home ferrous sulfate - Monitor daily CBC RICHIE superimposed on CKD Stage 3a, improved RICHIE likely due to decreased PO intake in context of pneumonia/COPD exacerbation. - continue Lokelma - trend BMP daily Chronic HFpEF Currently euvolemic. - home Lasix restarted on 08/20 Hypertension - Continue home diltiazem and HCTZ Type 2 Diabetes Mellitus - SSI and Lantus 20 units BID, hold home PO meds while hospitalized WENDY -Not on BiPAP or CPAP at home Hyperlipidemia, CAD -Continue home atorvastatin and baby ASA GERD - continue home Protonix Diet: HH, DM2 DVT ppx: restarted Heparin SQ Dispo: Med tele Code Status: Full Code (2) WENDY (obstructive sleep apnea): (3) Acute on chronic respiratory failure with hypoxia: (4) Acute kidney injury superimposed on CKD: (5) CKD (chronic kidney disease) stage 3, GFR 30-59 ml/min: Admission and Anticipated Discharge Date Admission Date: August 19, 2022 Subjective Patient seen at bedside this morning. Breathing improving each day. On 3L O2 at home which he is now very near. Denies significant sob, chest pain, fever, abd pain, N/V/D. Review of Systems Review of Systems: All systems reviewed & are unremarkable except as noted in HPI & below Physical Exam Physical Exam: General: A&Ox3. NAD. Cooperative. HEENT: Atraumatic, normocephalic. Pulm: +bilateral expiratory wheezes but with good aeration. No crackles. Symmetrical chest rise. No increase work of breathing. No respiratory distress. Cardiac: RRR, -mrg. Radial pulses intact and symmetrical. No LE edema. Abdominal: soft, non-tender, non-distended Skin: warm, dry, no rash Results & Data Results & Data Vital Signs (Past 12 Hours) Vital Signs Temp Pulse Resp BP BP Pulse Ox O2 Del Method 08/22/22 20:00 Nasal Cannula 08/23/22 04:24 36.4 C L 77 18 166/73 H 92 Nasal Cannula 08/23/22 02:48 83 20 89 L Nasal Cannula 08/23/22 00:26 36.3 C L 79 18 177/76 H 93 Nasal Cannula 08/22/22 22:48 75 19 95 Nasal Cannula 08/22/22 20:24 36.6 C 76 20 176/79 H 94 Nasal Cannula 08/22/22 19:16 67 19 94 Nasal Cannula O2 Flow Rate 08/22/22 20:00 4 08/23/22 04:24 4 08/23/22 02:48 4 08/23/22 00:26 2 08/22/22 22:48 4 08/22/22 20:24 4 08/22/22 19:16 4
[2022-08-23] MEDS: SODIUM CHLOR 7% 4 ML NEB NEB SCH (07:10)
[2022-08-23] MEDS ORDERED: LANTUS PER UNIT CHARGE SQ SCH (09:00)
[2022-08-23] MEDS ORDERED: SODIUM ZIRCONIUM CYCLOSILICATE 10 GM PACKET PO SCH (09:00)
[2022-08-23] MEDS: hydroCHLOROthiazide 25 MG TAB PO SCH (09:19)
[2022-08-23] MEDS: PANTOprazole 40 MG TAB PO SCH (09:19)
[2022-08-23] MEDS: dilTIAZem HCL 240 MG CAPCR PO SCH (09:19)
[2022-08-23] MEDS: FERROUS SULFATE 325 MG TAB PO SCH (09:20)
[2022-08-23] MEDS: MAGNESIUM OXIDE 400 MG TAB PO SCH (09:20)
[2022-08-23] MEDS: guaiFENesin 600 MG TABCR PO SCH (09:20)
[2022-08-23] MEDS: FUROSEMIDE 40 MG TAB PO SCH (09:22)
[2022-08-23] MEDS: UMECLIDINIUM BROMIDE 62.5MCG/BLISTER 7 PUFFS/INHALER INH SCH (09:24)
[2022-08-23] MEDS: HEPARIN SOD 5,000 UNIT/0.5 ML VIAL SQ SCH (09:24)
[2022-08-23] MEDS: INSULIN ASPART PER UNIT CHARGE SC SCH ×2 (09:30→12:27)
--- NOTE | 2022-08-23 09:34 | Pulmonology Progress Note ---
Date of Service August 23, 2022 Assessment & Plan (1) COPD exacerbation: (2) Multiple pulmonary nodules determined by computed tomography of lung: (3) Pneumonia: Plan IMPRESSION: 77-year-old male with advanced COPD presenting with multifocal airspace opacities in the setting of hypoxemic respiratory failure currently being treated for pneumonia. Patient reports being back near to his baseline and currently requiring 4 L nasal cannula alone at this time. RECOMMENDATIONS: 1. Hypoxemic respiratory failure - * Multifactorial in the patient with multifocal infiltrative changes on CT and the patient with advanced COPD at baseline. * Would complete course of antibiotics. * Titrate down O2 as tolerated. * Continue to encourage ambulation and flutter valve. * Maintain saturations of 90% or above. 2. COPD - * Requires 3 L nasal cannula at baseline. Approaching his baseline at this time. * No wheezing on exam. * Continue home nebulizers and inhalers at this time. 3. Multiple pulmonary nodules - * As patient has showed clinical improvement, will hold off on emergent bronchoscopic evaluation at this time. * Would recommend short-term follow-up CT in 6 weeks in the outpatient setting. Patient can be seen in the outpatient setting at that time. * Patient is agreeable to this approach. Thank you for allowing us to participate in the care of this patient. We will be happy to follow the patient in the outpatient setting at the time of discharge. Admission and Anticipated Discharge Date Admission Date: August 19, 2022 Subjective Patient seen and evaluated at bedside today. He reports that his breathing is greatly improved. He is down to 4 L nasal cannula. He utilizes 3 L chronically. Continues with a cough. Reports doing some laps around the halls yesterday. He is waiting for PT/OT today until he starts with increasing activity again. Review of Systems Review of Systems: A complete 6 point review of systems was reviewed with the patient with pertinent positives and negatives as per history of present illness. All else were negative. Physical Exam Physical Exam: VITAL SIGNS - Vital signs and nursing notes were reviewed. GENERAL - 77-year-old male appearing his stated age who is in no acute distress. Communicates well with provider and answers questions appropriately. NOSE - Midline and without cyanosis. MOUTH/OROPHARYNX - Without perioral cyanosis. LUNGS - Diminished breath sounds noted throughout. No wheezes noted. CARDIAC - RRR with S1/S2. No murmur, rubs, or gallops appreciated. EXTREMITIES - Moderate bilateral pretibial edema present. +3/5 radial palpated throughout. PSYCH - A&Ox3 and cooperates fully with examiner. Pt is very pleasant and interacts well with examiner. Results & Data Results & Data Vital Signs (Past 12 Hours) Vital Signs Temp Pulse Pulse Resp BP BP Pulse Ox 08/23/22 07:40 36.6 C 71 18 179/79 H 99 08/23/22 07:00 68 08/23/22 07:12 75 18 95 08/23/22 04:24 36.4 C L 77 18 166/73 H 92 08/23/22 02:48 83 20 89 L 08/23/22 00:26 36.3 C L 79 18 177/76 H 93 08/22/22 22:48 75 19 95 O2 Del Method O2 Flow Rate 08/23/22 07:40 Room Air 08/23/22 07:00 08/23/22 07:12 Nasal Cannula 4 08/23/22 04:24 Nasal Cannula 4 08/23/22 02:48 Nasal Cannula 4 08/23/22 00:26 Nasal Cannula 2 08/22/22 22:48 Nasal Cannula 4 PG Care Time/CCT Total # of Minutes Spent Total Time Spent with Patient: Total time spent is greater than 50% in coordination of care (as documented) at patient's floor/unit and/or counseling patient: Coding Level of Care Code 56674 SUB INP/OBS CARE 2/35MIN Diagnoses COPD exacerbation J44.1 Multiple pulmonary nodules determined by computed tomography of lung R91.8 Pneumonia J18.9
[2022-08-23] MEDS ORDERED: AZITHROMYCIN 250 MG TAB PO ONE (14:30)
--- NOTE | 2022-08-23 15:27 | Fluoroscopy Report ---
FL video swallow CLINICAL HISTORY: r/o silent aspiration TECHNIQUE: Video fluoroscopy of the pharyngeal region was performed as barium mixtures of varying con sistencies were administered to the patient by the speech pathologist. A formal esophagram was not pe rformed. Comparison: Comparison is made to swallow study 08/07/2018 FINDINGS: Total fluoroscopy time: 1.10 minutes. Radiation dose: 4.8 mGy. The patient swallowed the different barium consistencies without difficulty. There was no laryngeal v estibular penetration or gissel tracheal aspiration. Pooling of barium was noted in the bilateral piri form sinuses and valleculae. IMPRESSION: No evidence of aspiration. Please see the speech pathology report for further details. ACT 112: Negative or not required by law. Electronically signed by: Andrés Saul M.D. 08/23/2022 3:25 PM
[2022-08-23] MEDS ORDERED: FUROSEMIDE 20 MG TAB PO SCH (17:00)
--- NOTE | 2022-08-23 17:44 | Discharge Summary ---
Date of Service August 23, 2022 Admission HPI Per Admitting Provider Kristopher Louie is a 77-year-old male with a PMH significant for severe COPD with chronic hypoxemic respiratory failure on 3L NC at baseline, WENDY (not using CPAP), CAD, SVT, DM II, hyperlipidemia, stage 3 CKD, and anemia who presented to the ED after worsening shortness of breath. He states that for the past week he has felt more fatigued- he had one episode of vomiting on Monday and has had poor PO intake since then. He denies diarrhea or nausea, but has had a decreased appetite. He states that the increased shortness of breath started yesterday and worsened today. He recalls checking his oxygen saturation at home earlier today and it was in the 70s- he later went to look at the [facility] facilities with his daughter and his SOB worsened even more. He states that EMS checked his oxygen saturation and it was then in the 60s. He states that he is comfortable now since receiving treatments in the ED. He denies chest pain, dizziness, or changes in bowel/bladder habits. 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 He states that he is on 3L NC at home and has not had any recent changes to his medications. He notes that he was scheduled to get a Procrit injection this past Monday for his anemia but was unable to go as he was feeling ill. Patient currently lives independently but is in the process of moving to [facility] for assisted living. Principal Diagnosis COPD exacerbation precipitated by pneumonia, lung mass of uncertain etiology Discharge Exam In general he is awake and alert pleasant no distress. HEENT normocephalic atraumatic mucous membranes moist. Breathing unlabored no accessory muscle use no conversational dyspnea good effort right around his home oxygen requirement. Skin shows no rashes no pallor or icterus. Neuro without focal deficits. Discharge Data Allergies Allergy/AdvReac Type Severity Reaction Status Date / Time ALYSSA Inhibitors Allergy Severe ANAPHYLAXIS Verified 08/19/22 21:22 Consultations 08/19/22 20:39 ED Decision to Admit Stat 08/19/22 22:28 Consult Pulmonology Routine Ordered Studies 08/19/22 19:31 CT abd pelvis wo con Stat CT chest diagnostic wo con Stat 08/23/22 11:30 FL video swallow Routine Hospital Course (1) Acute exacerbation of chronic obstructive pulmonary disease: 77-year-old male with a PMHx significant for severe COPD with chronic hypoxemic respiratory failure on 3L NC at baseline, WENDY (not using CPAP), CAD, SVT, DM II, hyperlipidemia, stage 3 CKD, and anemia who was admitted to [facility] on 08/19 for multifocal pneumonia and COPD exacerbation. Acute on Chronic Hypoxic Respiratory Failure due to Multifocal Pneumonia and COPD Exacerbation, improving -Initially on Zosyn in the ERthen cefepime/azithromycin here in the hospitaltoday will complete 5 days of azithromycin, sent home on cefdinir to round out 14 days of antibiotic therapy given his diffuse pneumonia and significant emphysema (with appearance of pus settling and emphysematous blebsmaking it likely to be slow to resolve) Left Upper Lobe Pulmonary Mass - CT chest on 08/19 showing "spiculated left upper lobe mass measuring up to 5.4 cm. Some concern for bronchogenic carcinoma however cannot rule out infectious/inflammatory etiology - Pulmonology consulted - swallow evaluation reassuring - recommend that he complete a course of antibiotics and get medically stabilized with short interval follow-up CT scan in 4 to 6 weeks. Can defer bronchoscopy till then. He expresses understanding of this and agrees with plan Normocytic Anemia Hgb 8.6 baseline Hgb around 9-10. Suspect due to CKD. - given Procrit 20,000 units (08/21), as patient has been getting this medication/dose ~every 2 weeks (Hgb threshold <11) - Continue home ferrous sulfate -Stable for home RICHIE superimposed on CKD Stage 3a, improved RICHIE likely due to decreased PO intake in context of pneumonia/COPD exacerbation. - continue Lokelma -Basic metabolic panel as an outpatient in the next week or sohis creatinine is at the high end of his baseline range to may be slightly above, but I suspect a ll centering around his current circumstances. Outpatient follow-up and basic metabolic panel Chronic HFpEF Currently euvolemic. -See aboveoutpatient basic metabolic panel Hypertension - Continue home diltiazem and HCTZ Type 2 Diabetes Mellitus -Home on home meds WENDY -Not on BiPAP or CPAP at homecan be addressed by pulmonary at outpatient follow-up Hyperlipidemia, CAD -Continue home atorvastatin and baby ASA GERD - continue home Protonix Diet: HH, DM2 DVT ppx: Heparin SQ Dispo: Safe for home (2) WENDY (obstructive sleep apnea): (3) Acute on chronic respiratory failure with hypoxia: (4) Acute kidney injury superimposed on CKD: (5) CKD (chronic kidney disease) stage 3, GFR 30-59 ml/min: Total Time Total Time Spent Total Time Spent (In Minutes): <30 Discharge Plan Discharge Items Patient Disposition: Home - Self-Care Reason For Visit: SHORTNESS OF BREATH Discharge Diagnosis: Multifocal pneumonia, COPD exacerbation Activity: Per Instructions section Non-emergency contact: Primary Care Provider and Airplane Engineer Call non-emergency contact if: you have any medication questions Follow-up/Referrals: James Perdue MD [Primary Care Provider] - 08/26/22 2:45 pm (With Dr. Tirado) Diet: Heart Healthy Addtl Attending Provider Instructions: You were admitted to [facility] due to shortness of breath. You were found to have pneumonia and an exacerbation of your COPD. As such, you were started on IV antibiotics and IV antibiotics in addition to inhalers. You were seen by Pulmonology as well. To ensure that your pneumonia wasn't caused by silent aspirations, a swallow study was performed and showed no concerning findings. Pulmonology also recommended obtaining a CT of your chest as an outpatient with close follow-up in their office thereafter. Upon discharge, we will continue you on antibiotics to complete a 14-day course total (including your days in the hospital). We will also taper your oral steroids. You will take: * Cefdinir 300mg twice daily for 9 days * Prednisone 40mg (4 pills) for 3 days, then 20mg (2 pills) for 3 days, then 10mg (1 pill) for 3 days Please continue to use your regular inhalers and other prescribed medications as usually ordered. As above, ensure that you keep your follow-up appointment with Pulmonology and set up a follow-up appointment with your PCP for continued chronic care. If you have recurrence or worsening of symptoms, please return to the hospital for reevaluation. Pending Studies at Discharge: No Stand-Alone Forms: My Jot[employer], Smoking Cessation Medications and DC Order Prescriptions: New prednisone 10 mg tablet See Rx Instructions .ROUTE .COMPLEX Qty: 21 0RF Rx Instructions: Take 40mg (4 pills) for 3 days, then 20mg (2 pills) for 3 days, then 10mg (1 pill) for 3 days, then stop cefdinir 300 mg capsule 300 mg PO BID 9 Days Qty: 18 0RF Continued arformoterol 15 mcg/2 mL solution for nebulization 2 ml inhalation BID Qty: 120 3RF budesonide 0.5 mg/2 mL suspension for nebulization 0.5 mg inhalation BID Qty: 120 5RF Lokelma 5 gram powder in packet 5 g PO Q OTHER DAY Qty: 30 5RF furosemide 20 mg tablet 20 mg PO .COMPLEX Qty: 270 3RF Rx Instructions: 20 mg orally Take 2 tablets in the AM and 1 tablet in the afternoon (DME) Oxygen Home Liters Per Minute See Dose Instructions .ROUTE .MEDSUPPLY Qty: 1 Rx Instructions: As directed magnesium oxide 500 mg capsule 400 mg PO BID hydrochlorothiazide 25 mg tablet 25 mg PO BID pantoprazole 20 mg tablet,delayed release (DR/EC) 10 mg PO DAILY ferrous sulfate [Feosol] 325 mg (65 mg iron) tablet 325 mg PO Q OTHER DAY (DME) Portable Oxygen Misc See Rx Instructions .Route Qty: 1 0RF Rx Instructions: Portable oxygen concentrator at a flow rate of 4 L/min via nasal cannula. Length of need is 99 years. ascorbic acid (vitamin C) 1,000 mg tablet 1 gm PO QAM mecobalamin (vitamin B12) 1,000 mcg tablet,chewable 1,000 mcg PO DAILY atorvastatin 20 mg tablet 20 mg PO HS metformin 1,000 mg tablet 1,000 mg PO BID nitroglycerin 0.4 mg tablet, sublingual 0.4 mg Sublingual DIRECTED PRN (Reason: Chest Pain) Rx Instructions: 1 tab sublingual every 5 minutes as needed for chest pain albuterol sulfate 90 mcg/actuation HFA aerosol inhaler 2 puff Inhalation Q4 PRN (Reason: Wheezing) aspirin 81 mg tablet,delayed release (DR/EC) 81 mg PO Q OTHER DAY Patient Comments: 81 mg PO EVERY OTHER DAY; Farxiga 10 mg tablet 10 mg PO QAM Rybelsus 14 mg tablet 14 mg PO QAM Spiriva Respimat 2.5 mcg/actuation mist 2 puff INHALATION QAM diltiazem HCl 240 mg capsule,extended release 24hr 240 mg PO BID Discharge Orders: Discharge Order (Routine); Ordered 08/23/22 Ordered By: Thor Mcneill/Other Patient Handouts: Managing Type 2 Diabetes, Special Foot Care for Diabetes Admission Data Admit Date/Time: 08/19/22 22:28 Attending Provider: Ok Gutierres Admit Provider: Asiya Gunn Primary Care Provider: James Perdue Other Providers: Constantin Stewart ; Tato Bui Other Interventions: Discharge Summary Assessment (RN) Last Done: 08/23/22 16:23 Coding Level of Care Code 32663 IN/OBS DISCH 30 MIN/LESS Diagnoses Acute exacerbation of chronic obstructive pulmonary disease J44.1 WENDY (obstructive sleep apnea) G47.33 Acute on chronic respiratory failure with hypoxia J96.21 Acute kidney injury superimposed on CKD N17.9; N18.9 CKD (chronic kidney disease) stage 3, GFR 30-59 ml/min N18.30
== END 2022-08-23 17:00 | disposition home or self-care (01) | DRG 190 ==
LOC: ED 18:27 → EDINP 22:28 → SUATTDRO 22:28 → 2N 22:57

== ENCOUNTER 2022-09-04 07:49 | Inpatient (IN) ==
[2022-09-04] MEDS ORDERED: ALBUT/IPRATROP 3MG/0.5MG NEB 3 ML VIAL NEB ONE (08:07)
[2022-09-04] MEDS ORDERED: methylPREDNISolone 125 MG/2 ML VIAL IV STA (08:07)
--- NOTE | 2022-09-04 08:16 | Emergency Department Note ---
History of Present Illness General Chief complaint: Shortness of Breath/Dyspnea Stated complaint: Short of Breath Time Seen by Provider: 09/04/22 08:00 Source: patient, RN notes reviewed and old records reviewed Mode of arrival: ambulatory Limitations: no limitations History of Present Illness This patient is a 77-year-old male who has a history of severe COPD and is oxygen dependent with 4 L comes in with increasing shortness of breath. Is primarily dyspnea on exertion he was hospitalized about 2 weeks ago with similar and was noted to be in pneumonia at the time and also have a lung mass. He says he has been short of breath over the last day and a half. No chest pain no pleurisy no fever no fall or trauma he does have lower extremity edema which may have gotten a little bit worse since he left the hospital. He is finished his antibiotics and steroids he continues baseline 4 L oxygen. No GI symptoms. He did come in by EMS and they gave him a DuoNeb and brought his oxygen saturation up temporarily Home Medications Medication Instructions Recorded Confirmed Type albuterol sulfate 90 mcg/actuation 2 puff inhalation Q4 PRN Wheezing 12/14/17 09/04/22 History aerosol inhaler atorvastatin 20 mg tablet 20 mg PO HS 12/14/17 09/04/22 History metformin 1,000 mg tablet 1,000 mg PO BID 12/14/17 09/04/22 History nitroglycerin 0.4 mg sublingual 0.4 mg sublingual DIRECTED PRN 12/14/17 09/04/22 History tablet Chest Pain Oxygen Home #1 ea 11/13/18 06/17/22 History aspirin 81 mg tablet,delayed 81 mg PO Q OTHER DAY 11/27/18 09/04/22 History release ascorbic acid (vitamin C) 1,000 mg 1 gm PO QAM 06/05/19 09/04/22 History tablet tiotropium bromide 2.5 2 puff inhalation QAM 10/16/20 09/04/22 History mcg/actuation mist for inhalation (Spiriva Respimat) hydrochlorothiazide 25 mg tablet 25 mg PO BID 07/07/21 09/04/22 History pantoprazole 20 mg tablet,delayed 20 mg PO DAILY 07/07/21 09/04/22 History release ferrous sulfate 325 mg (65 mg 325 mg PO Q OTHER DAY 08/11/21 09/04/22 History iron) tablet (Feosol) mecobalamin (vitamin B12) 1,000 1,000 mcg PO DAILY 10/30/21 09/04/22 History mcg chewable tablet diltiazem HCl 240 mg 240 mg PO BID 12/20/21 09/04/22 History capsule,extended release 24 hr magnesium oxide 500 mg capsule 400 mg PO BID 12/27/21 09/04/22 History Portable Oxygen #1 ea 02/17/22 06/17/22 Rx arformoterol 15 mcg/2 mL solution 2 ml inhalation BID #120 mL 05/13/22 09/04/22 Rx for nebulization dapagliflozin 10 mg tablet 10 mg PO QAM 05/13/22 09/04/22 History (Farxiga) semaglutide 14 mg tablet (Rybelsus) 14 mg PO QAM 05/13/22 09/04/22 History budesonide 0.5 mg/2 mL suspension 0.5 mg (2 mL) inhalation BID #120 06/09/22 09/04/22 Rx for nebulization mL furosemide 20 mg tablet 20 mg PO .COMPLEX #270 tabs 07/21/22 09/04/22 Rx magnesium oxide 400 mg PO BID 09/04/22 09/04/22 History sodium zirconium cyclosilicate 5 5 g PO [id number] 09/04/22 09/04/22 History gram oral powder packet (Lokelma) Allergies Allergy/AdvReac Type Severity Reaction Status Date / Time ALYSSA Inhibitors Allergy Severe ANAPHYLAXIS Verified 09/04/22 10:18 Past Med/Surg History Medical History Abnormal CT scan, chest BPH with obstruction/lower urinary tract symptoms CAD (coronary artery disease) CKD (chronic kidney disease) stage 3, GFR 30-59 ml/min COPD (chronic obstructive pulmonary disease) not well controlled per pt > worse this time of year with humidity DM type 2 (diabetes mellitus, type 2) NIDDM H/O pulmonary emphysema History of arthritis History of cardioversion 2009> SVT History of heart attack pt unaware of this History of nicotine dependence Hyperlipidemia Hypertension Hypomagnesemia Iron deficiency anemia due to chronic blood loss Multiple pulmonary nodules determined by computed tomography of lung On home oxygen therapy 3 LPM continuous WENDY (obstructive sleep apnea) no cpap > O2 continuous Peripheral neuropathy Pneumonia Apr 2019 Pulmonary air trapping Pulmonary air trapping Renal cyst just monitoring Renal cyst SVT (supraventricular tachycardia) dx 2009> diltiazem for this > controlled Surgical History History of bone marrow biopsy July 2019 > checking due to anemia History of cardiac cath 2009 > no stents History of colonoscopy History of esophagogastroduodenoscopy (EGD) History of nasal surgery Status post cataract extraction of both eyes with insertion of intraocular lens [place] teeth extracted Family History Father Diabetes Mother Diabetes Hypertension Other Brain tumor Depression Stroke Social History Smoking Status: Former smoker Tobacco Type: Cigarettes Age Started Using Tobacco: 20; packs per day: 1.0; Second Hand Exposure: No; Do You Dip or Chew Tobacco: No; Tobacco Cessation Education Requested by Patient: No Hx Alcohol Use: Yes Alcohol type: beer Hx Substance Use: No Preferred Language: Tanzanian Communication Ability: Effective Retail Property Manager Required: No Beliefs That Will Affect Care: None Current Living Situation: Alone Current Living Situation Comment: home alone Other Information That Helps Us Care for You: No Feels Safe at Home: Yes Safety Concerns: Feels Safe At This Time Assistive Devices: Oxygen - Continuous Review of Systems A total of 10 systems reviewed and were otherwise negative Physical Exam Vital Signs Vital Signs - 24 hr 09/04/22 10:00 09/04/22 10:00 09/04/22 10:30 Pulse Rate 95 H Pulse Rate from SpO2 Sensor 96 H Respiratory Rate 23 Blood Pressure 152/62 H 110/79 Blood Pressure Mean 102 87 Pulse Oximetry 88 L Oxygen Delivery Method Nasal Cannula Oxygen Flow Rate 6 09/04/22 10:30 Pulse Rate 101 H Pulse Rate from SpO2 Sensor 101 H Respiratory Rate 16 Blood Pressure Blood Pressure Mean Pulse Oximetry 84 L Oxygen Delivery Method Nasal Cannula Oxygen Flow Rate 6 General: Well developed well nourished chronically ill-appearing older male who is wearing an oxygen mask but otherwise appears in no acute distress, breathing comfortably on room air. Normal speech, speaking full sentences HEENT: Normal cephalic atraumatic. Pupils are equal round and reactive to light. Extraocular movements are intact. Oropharynx is pink with moist mucous membranes. No swelling of the mouth lips or tongue. Neck: Supple with a midline trachea. No meningeal signs or stiffness, no JVD or bruits. No Stridor. Chest: Equal bilaterally but somewhat diminished to auscultation bilaterally. There are scattered wheezes. No increased work of breathing while wearing the oxygen. Heart: Regular rate and rhythm without murmurs or gallops. Abdomen: Soft nontender, nondistended without rebound guarding or rigidity. Extremities: No cyanosis clubbing. 1+ bilateral lower extremity.no calf tenderness or assymetry Spine/Back. Non tender to palpation. No CVA tenderness Skin: Good turgor without rashes. Neurologic exam: Cranial nerves two through 12 are intact. Motor and sensation are intact and symmetrical throughout. Course Administered Medications Albuterol (Albut/Ipratrop 3mg/0.5mg Neb 3 Ml Vial) 3 ml NEB Q4R [facility]; Protocol Stop: 10/04/22 13:02 Last Admin: 09/05/22 07:02 Dose: Not Given Documented By: Admin: 09/05/22 02:06 Dose: 3 ml Documented By: Admin: 09/04/22 22:54 Dose: 3 ml Documented By: Admin: 09/04/22 19:15 Dose: Not Given Documented By: Admin: 09/04/22 15:30 Dose: Not Given Documented By: Admin: 09/04/22 13:42 Dose: 3 ml Documented By: KAYA Ascorbic Acid (Ascorbic Acid 500 Mg Tab) 1,000 mg PO QAM [facility] Stop: 10/05/22 08:59 Last Admin: 09/05/22 08:05 Dose: 1,000 mg Documented By: TUSHAR Aspirin (Aspirin 81 Mg Ectab) 81 mg PO Q2D [facility]ARD Stop: 10/05/22 08:59 Last Admin: 09/05/22 08:05 Dose: 81 mg Documented By: TUSHAR Atorvastatin Calcium (Atorvastatin 20 Mg Tab) 20 mg PO HS [facility] Stop: 10/04/22 20:59 Last Admin: 09/04/22 20:51 Dose: 20 mg Documented By: VIRGINIE Budesonide (Budesonide 0.5 Mg/2 Ml Vial (Pulmicort)) 0.5 mg INH BIDR [facility] Stop: 10/04/22 13:02 Last Admin: 09/05/22 07:02 Dose: 0.5 mg Documented By: Admin: 09/04/22 19:15 Dose: 0.5 mg Documented By: Admin: 09/04/22 13:41 Dose: 0.5 mg Documented By: KAYA Diltiazem HCl (Diltiazem Hcl 240 Mg Capcr) 240 mg PO BID [facility] Stop: 10/04/22 20:59 Last Admin: 09/05/22 08:05 Dose: 240 mg Documented By: Admin: 09/04/22 20:52 Dose: 240 mg Documented By: VIRGINIE Formoterol Fumarate (Formoterol 20 Mcg/2 Ml Vial) 20 mcg INH BIDR [facility] Stop: 10/04/22 18:59 Last Admin: 09/05/22 07:02 Dose: 20 mcg Documented By: Admin: 09/04/22 19:15 Dose: 20 mcg Documented By: DEBBIE Guaifenesin (Guaifenesin 600 Mg Tabcr) 1,200 mg PO Q12 [facility] Stop: 10/05/22 04:49 Last Admin: 09/05/22 05:12 Dose: 1,200 mg Documented By: VIRGINIE Heparin Sodium (Porcine) (Heparin Sod 5,000 Unit/0.5 Ml Vial) 5,000 units SQ Q12 [facility] Stop: 10/04/22 20:59 Last Admin: 09/05/22 08:05 Dose: 5,000 units Documented By: Admin: 09/04/22 20:51 Dose: 5,000 units Documented By: VIRGINIE Cefepime HCl 2,000 mg/ Syringe 20 mls @ 5 mls/min IV Q12H [facility]; Protocol Stop: 09/11/22 21:59 Last Admin: 09/05/22 09:26 Dose: 5 mls/min Documented By: Admin: 09/04/22 22:41 Dose: 5 mls/min Documented By: VIRGINIE Doxycycline Hyclate 100 mg/ (Dextrose) 110 mls @ 50 mls/hr IV Q12H [facility] Stop: 09/11/22 13:59 Last Infusion: 09/05/22 04:41 Dose: 0 mls/hr Documented By: Admin: 09/05/22 02:24 Dose: 50 mls/hr Documented By: Infusion: 09/04/22 16:49 Dose: 0 mls/hr Documented By: Admin: 09/04/22 14:17 Dose: 50 mls/hr Documented By: TUSHAR Insulin Human Regular 250 (units/ Sodium Chloride) 250 mls @ 0 mls/hr IV .Q0M [facility]; Protocol Stop: 10/04/22 19:29 Last Titration: 09/05/22 00:10 Dose: 0 units/hr, 0 mls/hr Documented By: VIRGINIE Co-signed By: DESTIN Titration: 09/04/22 22:04 Dose: 2.5 units/hr, 2.5 mls/hr Documented By: VIRGINIE Co-signed By: DESTIN Titration: 09/04/22 21:00 Dose: 3.1 units/hr, 3.1 mls/hr Documented By: VIRGINIE Co-signed By: JEFFY Admin: 09/04/22 20:13 Dose: 3.1 units/hr, 3.1 mls/hr Documented By: VIRGINIE Co-signed By: JEFFY Insulin Aspart (Insulin Aspart Per Unit Charge) 0 units SC [facility] Stop: 10/05/22 03:59 Last Admin: 09/05/22 07:50 Dose: 20 units Documented By: TUSHAR Co-signed By: TYLER Admin: 09/05/22 04:32 Dose: 6 units Documented By: VIRGINIE Co-signed By: SABINE Insulin Glargine (Lantus Per Unit Charge) 0 units SC [facility]; Protocol Stop: 10/04/22 20:59 Last Admin: 09/04/22 20:47 Dose: 25 units Documented By: VIRGINIE Co-signed By: RADHA Insulin Glargine (Lantus Per Unit Charge) 20 units SC DAILY [facility] Stop: 10/05/22 08:59 Last Admin: 09/05/22 08:04 Dose: 20 units Documented By: TUSHAR Co-signed By: JAQUAN Magnesium Oxide (Magnesium Oxide 400 Mg Tab) 400 mg PO BID [facility] Stop: 10/04/22 20:59 Last Admin: 09/05/22 08:05 Dose: 400 mg Documented By: Admin: 09/04/22 20:52 Dose: 400 mg Documented By: VIRGINIE Pantoprazole Sodium (Pantoprazole 40 Mg Tab) 40 mg PO DAILY [facility] Stop: 10/04/22 13:02 Last Admin: 09/05/22 08:05 Dose: 40 mg Documented By: Admin: 09/04/22 14:17 Dose: 40 mg Documented By: TUSHAR Sodium Chloride (Sodium Chlor 7% 4 Ml Neb) 4 ml NEB BIDR [facility] Stop: 10/04/22 18:59 Last Admin: 09/05/22 07:02 Dose: 4 ml Documented By: Admin: 09/04/22 19:15 Dose: 4 ml Documented By: DEBBIE Umeclidinium [place] (Umeclidinium [place] 62.5mcg/Blister 7 Puffs/Inhaler) 1 puffs INH QAM [facility] Stop: 10/05/22 08:59 Last Admin: 09/05/22 08:05 Dose: 1 puffs Documented By: TUSHAR Discontinued Medications Albuterol (Albut/Ipratrop 3mg/0.5mg Neb 3 Ml Vial) 12 ml NEB ONE ONE; Protocol Stop: 09/04/22 08:08 Last Admin: 09/04/22 08:41 Dose: 12 ml Documented By: KAYA Cefepime HCl (Cefepime 2,000 Mg/20 Ml Vial) Confirm Administered Dose 2,000 mg .ROUTE .STK-MED ONE Stop: 09/04/22 09:18 Last Admin: 09/04/22 09:44 Dose: 2,000 mg Documented By: LAXMI Furosemide (Furosemide 40 Mg/4 Ml Vial) 40 mg IV ONE ONE Stop: 09/04/22 10:41 Last Admin: 09/04/22 12:23 Dose: 40 mg Documented By: LAXMI Cefepime HCl 2,000 mg/ Syringe 20 mls @ 5 mls/min IV NOW STA; Protocol Stop: 09/04/22 09:13 Last Admin: 09/04/22 09:45 Dose: Not Given Documented By: LAXMI Insulin Human Regular 10 units (/ Syringe) 10 mls @ 0 mls/hr IV ONE ONE Stop: 09/04/22 13:31 Last Admin: 09/04/22 13:53 Dose: 10 mls/hr Documented By: TUSHAR Co-signed By: ANGLE Insulin Aspart (Insulin Aspart Per Unit Charge) 0 units SC ACHS [facility] Stop: 10/04/22 13:02 Last Admin: 09/04/22 17:08 Dose: 33 units Documented By: TUSHAR Co-signed By: TYLER Admin: 09/04/22 14:08 Dose: 24 units Documented By: TUSHAR Co-signed By: ANGLE Insulin Aspart (Insulin Aspart Per Unit Charge) 0 units SC ACHS [facility]; Protocol Stop: 10/04/22 19:29 Last Admin: 09/04/22 20:55 Dose: Not Given Documented By: Admin: 09/04/22 20:48 Dose: 6 units Documented By: VIRGINIE Co-signed By: RADHA Insulin Glargine (Lantus Per Unit Charge) 20 units SC 1400 ONE Stop: 09/04/22 14:01 Last Admin: 09/04/22 14:12 Dose: 20 units Documented By: TUSHAR Co-signed By: ANGLE Insulin Human Regular (Novolin-R Insulin Per Unit Charge) 4 units SC NOW STA Stop: 09/04/22 09:11 Last Admin: 09/04/22 09:44 Dose: 4 units Documented By: LAXMI Co-signed By: HERMANN Insulin Human Regular (Novolin-R Bolus From Bag) 3 units IV ONE ONE Stop: 09/04/22 19:31 Last Admin: 09/04/22 20:14 Dose: 3 units Documented By: VIRGINIE Co-signed By: JEFFY Methylprednisolone (Methylprednisolone 125 Mg/2 Ml Vial) 125 mg IV NOW STA Stop: 09/04/22 08:08 Last Admin: 09/04/22 08:36 Dose: 125 mg Documented By: LAXMI Miscellaneous (Insulin Protocol Goal Range ) 1 each N/A ONE ONE Stop: 09/04/22 19:21 Last Admin: 09/04/22 20:50 Dose: 1 each Documented By: VIRGINIE Sodium Chloride (Sodium Chloride 0.65% Na Soln 45 Ml (Emanuel)) Confirm Administered Dose 225 sprays .ROUTE .STK-MED ONE Stop: 09/04/22 14:47 Last Admin: 09/04/22 17:12 Dose: 225 sprays Documented By: TUSHAR Critical Care Time Critical Care Time: Yes Total Critical Care Time: 40 Due to the patient's significant hypoxemia, concern for significant COPD exacerbation, pneumonia/sepsis and cardiac etiologies, need for multiple medications including IV antibiotics and continuous nebulized treatments and IV steroids as well as consultation with hospitalist and lengthy discussion with the daughter who is a nurse, I have personally spent greater than 40 minutes of critical care time in the direct management of this patient. This includes bedside care, interpretation of diagnostic studies, and testing, discussion with consultants, patient, and family members, and other required patient management activities. This 40 minutes is in excess of all separately billable procedures. Medical Decision Making Differential Diagnosis COPD exacerbation, CHF, acute coronary syndrome, arrhythmia, sepsis, pneumothorax, PE, electrolyte or metabolic Medical Records Attestation: I reviewed the patient's medical records. Home Medications Current Medication List: was personally reviewed by me Laboratory Data Attestation: I reviewed the patient's lab results. 09/04/22 08:00 09/04/22 08:00 Lab Results 09/04/22 09/04/22 09/04/22 Range/Units 08:00 08:00 08:00 WBC 11.32 H (4.8-10.8) K/ul RBC 3.60 L (4.70-6.10) M/uL Hgb 10.1 L (14.0-18.0) g/dl Hct 32.2 L (42.0-52.0) % MCV 89.4 (80.0-100.0) fL MCH 28.1 (25.0-34.0) pg MCHC 31.4 L (32.0-36.0) g/dL RDW Std Deviation 59.2 H (36.4-46.3) fL RDW Coeff of Arnoldo 18.5 H (11.5-14.5) % Plt Count 220 (130-400) K/uL MPV 11.0 (9.4-12.4) fL Immature Gran % (Auto) 0.4 % Neut % (Auto) 90.4 % Lymph % (Auto) 3.7 % [place] % (Auto) 4.2 % Eos % (Auto) 1.1 % Baso % (Auto) 0.2 % Neut # (Auto) 10.23 H (1.40-6.50) K/uL Lymph # (Auto) 0.42 L (1.2-3.4) K/uL [place] # (Auto) 0.48 (0.11-0.59) K/uL Eos # (Auto) 0.12 (0-0.50) K/uL Baso # (Auto) 0.02 (0-0.2) K/uL Immature Gran # (Auto) 0.05 (0.01-0.20) K/uL PT (9.0-12.0) Seconds INR (0.9-1.1) APTT (21.0-31.0) Seconds PTT Ratio VBG pH (7.36-7.41) VBG pCO2 (38-50) mmHg VBG pO2 mmHg VBG HCO3 mmol/L VBG O2 Saturation % VBG Base Excess mEq/L Sodium 133 L (136-145) mmol/L Potassium 5.1 (3.5-5.1) mmol/L Chloride 90 L (98-107) mmol/L Carbon Dioxide 35 H (21-32) mmol/L Anion Gap 8 (3-11) BUN 69 H (6-23) mg/dl Creatinine 2.09 H (0.6-1.4) mg/dl Est Cr Clr Drug Dosing 30.5 ml/min Est GFR ( Amer) 34.8 ml/min Est GFR (Non-Af Amer) 30.1 ml/min BUN/Creatinine Ratio 33.0 H (10-20) Glucose 423 H* (70-99(Fasting)) mg/dl Lactate (0.4-2.0) mmol/L Calcium 8.6 (8.6-10.3) mg/dl Magnesium 2.8 H (1.7-2.4) mg/dl Iron (35-175) mcg/dl TIBC (250-450) mcg/dl Unsaturated IBC (155-355) mcg/dl Transferrin % Sat (20-50) % Ferritin (8-388) ng/ml Total Bilirubin 0.5 (0.2-1.0) mg/dl Direct Bilirubin 0.1 (0-0.2) mg/dl AST 32 (13-39) U/L ALT 27 (7-52) U/L Alkaline Phosphatase 58 (34-104) U/L Troponin I High Sens 29.7 H (0-20) pg/ml B-Natriuretic Peptide (0-100) pg/ml Total Protein 6.7 (6.0-8.3) gm/dl Albumin 3.3 L (3.4-5.0) gm/dl Vitamin B12 (180-914) pg/ml Folate (>5.38) ng/ml Procalcitonin 1.12 H (0-0.5) ng/ml TSH (0.300-4.500) uIu/ml Adenovirus (PCR) (NotDetected) B. pertussis DNA (PCR) (NotDetected) B.parapertussis DNA PCR (NotDetected) C. pneumoniae DNA (PCR) (NotDetected) Coronavirus OC43 (PCR) (NotDetected) Coronavirus HKU1 (PCR) (NotDetected) Coronavirus 229E (PCR) (NotDetected) SARS-CoV-2 (PCR) (NotDetected) Coronavirus NL63 (PCR) (NotDetected) Human Metapneumovir PCR (NotDetected) Influenza Type A (PCR) (NotDetected) Influenza Type B (PCR) (NotDetected) M. pneumoniae (PCR) (NotDetected) Parainfluenza 1 (PCR) (NotDetected) Parainfluenza 2 (PCR) (NotDetected) Parainfluenza 3 (PCR) (NotDetected) Parainfluenza 4 (PCR) (NotDetected) RSV (PCR) (NotDetected) Entero/Rhino (PCR) (NotDetected) 09/04/22 09/04/22 09/04/22 Range/Units 08:00 08:25 08:26 WBC (4.8-10.8) K/ul RBC (4.70-6.10) M/uL Hgb (14.0-18.0) g/dl Hct (42.0-52.0) % MCV (80.0-100.0) fL MCH (25.0-34.0) pg MCHC (32.0-36.0) g/dL RDW Std Deviation (36.4-46.3) fL RDW Coeff of Arnoldo (11.5-14.5) % Plt Count (130-400) K/uL MPV (9.4-12.4) fL Immature Gran % (Auto) % Neut % (Auto) % Lymph % (Auto) % [place] % (Auto) % Eos % (Auto) % Baso % (Auto) % Neut # (Auto) (1.40-6.50) K/uL Lymph # (Auto) (1.2-3.4) K/uL [place] # (Auto) (0.11-0.59) K/uL Eos # (Auto) (0-0.50) K/uL Baso # (Auto) (0-0.2) K/uL Immature Gran # (Auto) (0.01-0.20) K/uL PT 11.2 (9.0-12.0) Seconds INR 1.0 (0.9-1.1) APTT 25.6 (21.0-31.0) Seconds PTT Ratio 0.9 VBG pH (7.36-7.41) VBG pCO2 (38-50) mmHg VBG pO2 mmHg VBG HCO3 mmol/L VBG O2 Saturation % VBG Base Excess mEq/L Sodium (136-145) mmol/L Potassium (3.5-5.1) mmol/L Chloride (98-107) mmol/L Carbon Dioxide (21-32) mmol/L Anion Gap (3-11) BUN (6-23) mg/dl Creatinine (0.6-1.4) mg/dl Est Cr Clr Drug Dosing ml/min Est GFR ( Amer) ml/min Est GFR (Non-Af Amer) ml/min BUN/Creatinine Ratio (10-20) Glucose (70-99(Fasting)) mg/dl Lactate 1.1 (0.4-2.0) mmol/L Calcium (8.6-10.3) mg/dl Magnesium (1.7-2.4) mg/dl Iron (35-175) mcg/dl TIBC (250-450) mcg/dl Unsaturated IBC (155-355) mcg/dl Transferrin % Sat (20-50) % Ferritin (8-388) ng/ml Total Bilirubin (0.2-1.0) mg/dl Direct Bilirubin (0-0.2) mg/dl AST (13-39) U/L ALT (7-52) U/L Alkaline Phosphatase (34-104) U/L Troponin I High Sens (0-20) pg/ml B-Natriuretic Peptide (0-100) pg/ml Total Protein (6.0-8.3) gm/dl Albumin (3.4-5.0) gm/dl Vitamin B12 (180-914) pg/ml Folate (>5.38) ng/ml Procalcitonin (0-0.5) ng/ml TSH (0.300-4.500) uIu/ml Adenovirus (PCR) Not Detected (NotDetected) B. pertussis DNA (PCR) Not Detected (NotDetected) B.parapertussis DNA PCR Not Detected (NotDetected) C. pneumoniae DNA (PCR) Not Detected (NotDetected) Coronavirus OC43 (PCR) Not Detected (NotDetected) Coronavirus HKU1 (PCR) Not Detected (NotDetected) Coronavirus 229E (PCR) Not Detected (NotDetected) SARS-CoV-2 (PCR) Not Detected (NotDetected) Coronavirus NL63 (PCR) Not Detected (NotDetected) Human Metapneumovir PCR Not Detected (NotDetected) Influenza Type A (PCR) Not Detected (NotDetected) Influenza Type B (PCR) Not Detected (NotDetected) M. pneumoniae (PCR) Not Detected (NotDetected) Parainfluenza 1 (PCR) Not Detected (NotDetected) Parainfluenza 2 (PCR) Not Detected (NotDetected) Parainfluenza 3 (PCR) Not Detected (NotDetected) Parainfluenza 4 (PCR) Not Detected (NotDetected) RSV (PCR) Not Detected (NotDetected) Entero/Rhino (PCR) Not Detected (NotDetected) 09/04/22 09/04/22 09/04/22 Range/Units 08:26 08:26 10:04 WBC (4.8-10.8) K/ul RBC (4.70-6.10) M/uL Hgb (14.0-18.0) g/dl Hct (42.0-52.0) % MCV (80.0-100.0) fL MCH (25.0-34.0) pg MCHC (32.0-36.0) g/dL RDW Std Deviation (36.4-46.3) fL RDW Coeff of Arnoldo (11.5-14.5) % Plt Count (130-400) K/uL MPV (9.4-12.4) fL Immature Gran % (Auto) % Neut % (Auto) % Lymph % (Auto) % [place] % (Auto) % Eos % (Auto) % Baso % (Auto) % Neut # (Auto) (1.40-6.50) K/uL Lymph # (Auto) (1.2-3.4) K/uL [place] # (Auto) (0.11-0.59) K/uL Eos # (Auto) (0-0.50) K/uL Baso # (Auto) (0-0.2) K/uL Immature Gran # (Auto) (0.01-0.20) K/uL PT (9.0-12.0) Seconds INR (0.9-1.1) APTT (21.0-31.0) Seconds PTT Ratio VBG pH 7.46 H (7.36-7.41) VBG pCO2 58 H (38-50) mmHg VBG pO2 36 mmHg VBG HCO3 41 mmol/L VBG O2 Saturation 61.9 % VBG Base Excess 15.1 mEq/L Sodium (136-145) mmol/L Potassium (3.5-5.1) mmol/L Chloride (98-107) mmol/L Carbon Dioxide (21-32) mmol/L Anion Gap (3-11) BUN (6-23) mg/dl Creatinine (0.6-1.4) mg/dl Est Cr Clr Drug Dosing ml/min Est GFR ( Amer) ml/min Est GFR (Non-Af Amer) ml/min BUN/Creatinine Ratio (10-20) Glucose (70-99(Fasting)) mg/dl Lactate (0.4-2.0) mmol/L Calcium (8.6-10.3) mg/dl Magnesium (1.7-2.4) mg/dl Iron 17 L (35-175) mcg/dl TIBC 216 L (250-450) mcg/dl Unsaturated IBC 199 (155-355) mcg/dl Transferrin % Sat 8 L (20-50) % Ferritin 248.8 (8-388) ng/ml Total Bilirubin (0.2-1.0) mg/dl Direct Bilirubin (0-0.2) mg/dl AST (13-39) U/L ALT (7-52) U/L Alkaline Phosphatase (34-104) U/L Troponin I High Sens 28.4 H (0-20) pg/ml B-Natriuretic Peptide 141 H (0-100) pg/ml Total Protein (6.0-8.3) gm/dl Albumin (3.4-5.0) gm/dl Vitamin B12 (180-914) pg/ml Folate (>5.38) ng/ml Procalcitonin (0-0.5) ng/ml TSH (0.300-4.500) uIu/ml Adenovirus (PCR) (NotDetected) B. pertussis DNA (PCR) (NotDetected) B.parapertussis DNA PCR (NotDetected) C. pneumoniae DNA (PCR) (NotDetected) Coronavirus OC43 (PCR) (NotDetected) Coronavirus HKU1 (PCR) (NotDetected) Coronavirus 229E (PCR) (NotDetected) SARS-CoV-2 (PCR) (NotDetected) Coronavirus NL63 (PCR) (NotDetected) Human Metapneumovir PCR (NotDetected) Influenza Type A (PCR) (NotDetected) Influenza Type B (PCR) (NotDetected) M. pneumoniae (PCR) (NotDetected) Parainfluenza 1 (PCR) (NotDetected) Parainfluenza 2 (PCR) (NotDetected) Parainfluenza 3 (PCR) (NotDetected) Parainfluenza 4 (PCR) (NotDetected) RSV (PCR) (NotDetected) Entero/Rhino (PCR) (NotDetected) 09/04/22 09/04/22 Range/Units 10:04 10:06 WBC (4.8-10.8) K/ul RBC (4.70-6.10) M/uL Hgb (14.0-18.0) g/dl Hct (42.0-52.0) % MCV (80.0-100.0) fL MCH (25.0-34.0) pg MCHC (32.0-36.0) g/dL RDW Std Deviation (36.4-46.3) fL RDW Coeff of Arnoldo (11.5-14.5) % Plt Count (130-400) K/uL MPV (9.4-12.4) fL Immature Gran % (Auto) % Neut % (Auto) % Lymph % (Auto) % [place] % (Auto) % Eos % (Auto) % Baso % (Auto) % Neut # (Auto) (1.40-6.50) K/uL Lymph # (Auto) (1.2-3.4) K/uL [place] # (Auto) (0.11-0.59) K/uL Eos # (Auto) (0-0.50) K/uL Baso # (Auto) (0-0.2) K/uL Immature Gran # (Auto) (0.01-0.20) K/uL PT (9.0-12.0) Seconds INR (0.9-1.1) APTT (21.0-31.0) Seconds PTT Ratio VBG pH (7.36-7.41) VBG pCO2 (38-50) mmHg VBG pO2 mmHg VBG HCO3 mmol/L VBG O2 Saturation % VBG Base Excess mEq/L Sodium (136-145) mmol/L Potassium (3.5-5.1) mmol/L Chloride (98-107) mmol/L Carbon Dioxide (21-32) mmol/L Anion Gap (3-11) BUN (6-23) mg/dl Creatinine (0.6-1.4) mg/dl Est Cr Clr Drug Dosing ml/min Est GFR ( Amer) ml/min Est GFR (Non-Af Amer) ml/min BUN/Creatinine Ratio (10-20) Glucose (70-99(Fasting)) mg/dl Lactate (0.4-2.0) mmol/L Calcium (8.6-10.3) mg/dl Magnesium (1.7-2.4) mg/dl Iron (35-175) mcg/dl TIBC (250-450) mcg/dl Unsaturated IBC (155-355) mcg/dl Transferrin % Sat (20-50) % Ferritin (8-388) ng/ml Total Bilirubin (0.2-1.0) mg/dl Direct Bilirubin (0-0.2) mg/dl AST (13-39) U/L ALT (7-52) U/L Alkaline Phosphatase (34-104) U/L Troponin I High Sens (0-20) pg/ml B-Natriuretic Peptide (0-100) pg/ml Total Protein (6.0-8.3) gm/dl Albumin (3.4-5.0) gm/dl Vitamin B12 940 H (180-914) pg/ml Folate 15.95 (>5.38) ng/ml Procalcitonin (0-0.5) ng/ml TSH 1.476 (0.300-4.500) uIu/ml Adenovirus (PCR) (NotDetected) B. pertussis DNA (PCR) (NotDetected) B.parapertussis DNA PCR (NotDetected) C. pneumoniae DNA (PCR) (NotDetected) Coronavirus OC43 (PCR) (NotDetected) Coronavirus HKU1 (PCR) (NotDetected) Coronavirus 229E (PCR) (NotDetected) SARS-CoV-2 (PCR) (NotDetected) Coronavirus NL63 (PCR) (NotDetected) Human Metapneumovir PCR (NotDetected) Influenza Type A (PCR) (NotDetected) Influenza Type B (PCR) (NotDetected) M. pneumoniae (PCR) (NotDetected) Parainfluenza 1 (PCR) (NotDetected) Parainfluenza 2 (PCR) (NotDetected) Parainfluenza 3 (PCR) (NotDetected) Parainfluenza 4 (PCR) (NotDetected) RSV (PCR) (NotDetected) Entero/Rhino (PCR) (NotDetected) Imaging Data Attestation: I personally reviewed and interpreted this imaging study as follows: My Impression: Chest x-rayI do not appreciate any pneumothorax. He does have some increased markings and haziness in the bases mostly on the right which could be consistent with pneumonia Radiologist's Impression: Chest X-Ray 09/04/22 08:07 XR chest 1V portable HISTORY: 77 years-old Male Sepsis acute sepsis COMPARISON: Chest radiograph and chest CT studies 08/19/2022 TECHNIQUE: AP view of the chest FINDINGS: Severe emphysema with chronic interstitial coarsening. Cardiac silhouette is enlarged. Patchy bibasilar and left midlung airspace opacities. Spiculated 5.5 cm lesion of the lingula is better seen on the comparison chest CT. Bones appear grossly intact. IMPRESSION: 1. Patchy bibasilar and left midlung airspace opacities are suggestive of pneumonia, similar in appearance to the study from 08/19/2022. 2. Spiculated lesion of the lingula is better seen on the comparison chest CT. 3. Severe pulmonary emphysema. ACT 112: Negative or not required by law. The above report was generated using voice recognition software. It may contain grammatical, syntax or spelling errors. Electronically signed by: Baljeet Srinviasan M.D. 09/04/2022 8:54 AM ECG Data Attestation: I personally reviewed and interpreted this ECG as follows: Indication: + SOB/dyspnea Rate (beats per minute): 100 Rhythm: + normal sinus ECG Intervals/blocks: + Normal QRS, + Normal QT and + Normal [place] ECG [place]: + Normal ECG ST segments: + Normal ST segments ECG Findings: no PACs or no PVCs Comparison ECG Date: from (08/20/22) Change: the following changes noted (Normal sinus rhythm has replaced SVT) MDM Narrative This patient comes in as described above. He was placed on a braid cutter in room before he came in by EMS. He did receive a DuoNeb he was found to be significantly hypoxemic on oxy mask here he is saturating about 90 and appears very comfortable and in no distress. He does have symmetrical breath sounds are somewhat diminished with some wheezes. There is certainly a COPD component so I did give him Solu-Medrol 125 mg IV and continuous albuterol Atrovent neb over an hour. Full work-up was done to also evaluate for other causes such as CHF, infection, cardiac disease, pneumothorax, or other pulmonary process, etc. He was reassessed frequently. The patient seems much more comfortable while receiving the neb his O2 sats up to 95%. Chest x-ray is concerning for pneumonia and was given cefepime 2 g IV he has done well with this before. His blood sugar was also elevated at over 400 he does not take insulin. I did give him 4 units of regular subcu to bring his hyperglycemia down gently. He also h ad a mildly elevated troponin side I did get a second troponin to trend this. Symptoms do not seem likely consistent with acute coronary syndrome. I think this is a COPD exacerbation with potentially underlying pneumonia or other potential etiologies. His renal function is also mildly elevated and he may have a fluid/CHF component as well given his increased lower extremity edema. I talked to his daughter at length at the bedside, she is a nurse and says that he is a very difficult fluid balance. Based on concerns for CHF and fluid overload issues and the fact that he has been normotensive I did not give him 30/kg fluid bolus as clinically I felt it would make him worse. His white count is mildly elevated. His other inflammatory markers such as lactic acid or not. He has been normotensive and I do not think is likely septic at this point. He has baseline anemia which is actually better than his baseline his daughter says has been receiving iron treatment. His second troponin is not significantly elevated compared to the first. I do think he needs to be admitted/observed for his COPD exacerbations and pneumonia. I have consulted the hospitalist and discussed case with her and the patient will be admitted for further treatment and evaluation Continuous cardiac monitoring: Orders placed in EMR for continuous cardiac monitoring: Upon my evaluation patient noted to be normal sinus rhythm with a rate of 95 Impression & Plan Severe chronic obstructive pulmonary disease, CROWE (dyspnea on exertion), Hypoxemia, Pneumonia, Hyperglycemia, Elevated troponin, Chronic renal insufficiency Discharge Plan Visit Data Chief Complaint: Shortness of Breath/Dyspnea Stated Complaint: Short of Breath ED Provider: Pepe Harvey Discharge Problem: Severe chronic obstructive pulmonary disease, CROWE (dyspnea on exertion), Hypoxemia, Pneumonia, Hyperglycemia, Elevated troponin, Chronic renal insufficiency Patient Disposition: Admitted As Inpatient Discharge Instructions Interventions: ED Discharge Assessment Last Done: 09/04/22 11:53
[2022-09-04 08:48] LABS: Base Excess VBG 15.1 mEq/L; HCO3 VBG 41 mmol/L; Oxygen Saturation VBG 61.9 %; PCO2 VBG 58 mmHg (38-50); PO2 VBG 36 mmHg; pH VBG 7.46 (7.36-7.41)
[2022-09-04 08:52] LABS: Albumin Level 3.3 gm/dl (3.4-5.0); Bilirubin Direct 0.1 mg/dl (0-0.2); Bilirubin,Total 0.5 mg/dl (0.2-1.0); Calcium 8.6 mg/dl (8.6-10.3); Creatinine Clr Calc Pharmacy 30.5 ml/min; Est GFR (African American) 34.8 ml/min; Est GFR (Non-African American) 30.1 ml/min; Magnesium 2.8 mg/dl (1.7-2.4); Potassium 5.1 mmol/L (3.5-5.1); Total Protein 6.7 gm/dl (6.0-8.3)
[2022-09-04 08:56] LABS: Troponin I High Sensitivity 29.7 pg/ml (0-20)
--- NOTE | 2022-09-04 08:56 | XRay Report ---
XR chest 1V portable HISTORY: 77 years-old Male Sepsis acute sepsis COMPARISON: Chest radiograph and chest CT studies 08/19/2022 TECHNIQUE: AP view of the chest FINDINGS: Severe emphysema with chronic interstitial coarsening. Cardiac silhouette is enlarged. Patchy bibasil ar and left midlung airspace opacities. Spiculated 5.5 cm lesion of the lingula is better seen on the comparison chest CT. Bones appear grossly intact. IMPRESSION: 1. Patchy bibasilar and left midlung airspace opacities are suggestive of pneumonia, similar in appea chema to the study from 08/19/2022. 2. Spiculated lesion of the lingula is better seen on the comparison chest CT. 3. Severe pulmonary emphysema. ACT 112: Negative or not required by law. The above report was generated using voice recognition software. It may contain grammatical, syntax o r spelling errors. Electronically signed by: Baljeet Srinivasan M.D. 09/04/2022 8:54 AM
[2022-09-04 08:59] LABS: Partial Thromboplastin Ratio 0.9; Partial Thromboplastin Time 25.6 Seconds (21.0-31.0); Prothrombin Time 11.2 Seconds (9.0-12.0)
[2022-09-04 09:01] LABS: Hematocrit (blood only) 32.2 % (42.0-52.0); Hemoglobin 10.1 g/dl (14.0-18.0); Mean Corpuscular Hemoglobin 28.1 pg (25.0-34.0); Mean Corpuscular Hgb Conc 31.4 g/dL (32.0-36.0); Mean Corpuscular Volume 89.4 fL (80.0-100.0); Platelet Count 220 K/uL (130-400); RDW Coefficient of Variation 18.5 % (11.5-14.5); RDW Standard Deviation 59.2 fL (36.4-46.3); White Blood Count 11.32 K/ul (4.8-10.8)
[2022-09-04] MEDS ORDERED: NovoLIN-R INSULIN PER UNIT CHARGE SC STA (09:10)
[2022-09-04] MEDS ORDERED: CEFEPIME 2,000 MG in SYRINGE 0 ML IV STA (09:10)
[2022-09-04 09:16] LABS: Basophils # (auto) 0.02 K/uL (0-0.2); Basophils % (auto) 0.2 %; Eosinophils # (auto) 0.12 K/uL (0-0.50); Eosinophils % (auto) 1.1 %; Immature Granulocytes # (auto) 0.05 K/uL (0.01-0.20); Immature Granulocytes % (auto) 0.4 %; Lymphocytes # (auto) 0.42 K/uL (1.2-3.4); Lymphocytes % (auto) 3.7 %; Monocytes # (auto) 0.48 K/uL (0.11-0.59); Monocytes % (auto) 4.2 %; Neutrophils # (auto) 10.23 K/uL (1.40-6.50); Neutrophils % (auto) 90.4 %
[2022-09-04] MEDS ORDERED: CEFEPIME 2,000 MG/20 ML VIAL ONE (09:17)
[2022-09-04 09:33] LABS: Adenovirus PCR Not Detected (NotDetected); Bordetella parapertussis PCR Not Detected (NotDetected); Bordetella pertussis PCR Not Detected (NotDetected); Chlamydia pneumoniae PCR Not Detected (NotDetected); Coronavirus 229E PCR Not Detected (NotDetected); Coronavirus CoV-2 (COVID19)PCR Not Detected (NotDetected); Coronavirus HKU1 PCR Not Detected (NotDetected); Coronavirus NL63 PCR Not Detected (NotDetected); Coronavirus OC43PCR Not Detected (NotDetected); Human Metapneumovirus PCR Not Detected (NotDetected); Influenza A PCR Not Detected (NotDetected); Influenza B PCR Not Detected (NotDetected); Mycoplasma pneumoniae PCR Not Detected (NotDetected); Parainfluenza Virus 1 PCR Not Detected (NotDetected); Parainfluenza Virus 2 PCR Not Detected (NotDetected); Parainfluenza Virus 3 PCR Not Detected (NotDetected); Parainfluenza Virus 4 PCR Not Detected (NotDetected); Respiratory Syncytial VirusPCR Not Detected (NotDetected); Rhinovirus/Enterovirus PCR Not Detected (NotDetected)
--- NOTE | 2022-09-04 10:09 | History & Physical Report ---
Date of Service September 04, 2022 Assessment & Plan (1) Acute and chronic respiratory failure with hypoxia: Plan: Severe COPD w/ respiratory failure w/ hypoxia on O2 at baseline. Also w/ pulm nodules susp for underlying malignancy Suspect combination of acute respiratory failure from volume overloaded state noting weights up, elevated BNP, BUN/Cr (however suspect from volume overload), pitting edema b/l LE, however given leukocytosis (could be from recent steroid taper) and elevated procal will cover empirically with antibiotics Biofire negative Given Cefepime, duoneb, solumedrol IV in ER Cover empirically with Cefepime/Doxy as given Cefepime in ER Check MRSA nasal, but doxy covers for MRSA and atypicals regardless Blood cultures pending -- follow CXR w/ Patchy bibasilar and left midlung airspace opacities are suggestive of pneumonia, similar in appearance to the study from 08/19/2022 (appears improved from my exam) Spiculated lesion of the lingula is better seen on the comparison chest CT. Severe pulmonary emphysema. Supplemental O2 to maintain sats -- currently on -7 on Oxymask, comfortable Pulm consulted -- appreciate assistance Continue duonebs though, incentive spirometer, flutter valve. Sputum production if changes/produces Acute on chronic diastolic and right sided CHF, suspected Lasix 40mg IV x 1 and monitor response (on 40mg QAM, 20mg QPM at baseline) - repeat BMP this afternoon -follows w/ Dr Quintero if needing assistance from nephrology. Anaphylactic reaction to ALYSSA-I. On farxiga for DM but also should help w/ CHF. Cards consulted Monitor weights, I&O, consideration for CHF clinic referral Checking ECHO given concerns CHF w/ 3-4+ pitting edema bilateral LE. Trend troponin, no CP on exam. suspect from volume overload. EKG w/ CP Will also need f/u pulm for repeat CT outpatient/consideration for bronch Heparin SQ for DVT prophylaxis given kidney function DMII with Hyperglycemia BSGs to 400s on admission, in DM II - suspect from recent steroids. Prior A1c last admit 6.8 on metformin 1gm BID at baseline, farxiga, semaglutide po daily Will avoid further IV steroids, suspect wheezing/SOB 2nd to volume overload given hyperglycemia. Insulin in ER, SSI added/pharmacy consulted - see below Monitor BSGs/titrations as needed Elevated troponin-demand ischemia in setting of hypoxia, known CAD - mild elevation without chest pain. EKG NSR (prior in August SVT w/ PVCs to 130s) -- continues on cardizem BID, hx SVT - trend troponin - monitor on telemetry - ECHO/cards consulted as above CKD III - BUN/Cr elevated above baseline. Suspect 2nd to volume overload. Follows with Dr Quintero. On lokemla 3x/week. Allergy to ALYSSA-I Lasix as above Monitor I&Os Consider c/w Dr Quintero for any worsening renal function HOLDING HCTZ 25mg BID in meantime while giving IV lasix and monitoring repeat BMP this afternoon Renal dose meds/avoid nephrotoxins as able Monitor BMP on repeat Anemia - chronic, no bleeding reported and on iron Q2d. hgb appears stable on exams. prior seen by heme/onc and [facility] in the past, IV iron/blood in the past. Had bone marrow eval w/o abn at that time. SPEP/UPEP normal protein. EPO 41 - Did have EGD/c-scope Apr 2019 w/ tubular adenoma, negative for high grade dysplasia, cecal polyp tubular adenoma negative for high grade dysplasia. - check iron panel/b12/folate for completeness - monitor cbc on repeat CAD cath in 2014 w/ 70% distal apical LAD lesion, diffusely diseased, non-occlusive disease in diagnoals, large circumflex with non-occ disease with 60% lesion in terminal portion of a marginal brach; 80% long lesion in proximal right coronary artery. Mild pulm HTN, with PAP 41mmHg and mean PA pressure 24mmhg with normal RA pressures, RVEDP, pulm wedge pressure and normal cardiac output Not on BB, but on cardizem for hx SVT Remains on aspirin, atorvastatin PT/OT consulted Monitor labs on repeat Labs in AM (2) WENDY (obstructive sleep apnea): Plan: not using CPAP -- prior note Dr Bui consideration noninvasive ventilation, elevated CO2 CO2 elevation on admission, pulm as above (3) CROWE (dyspnea on exertion): Plan: suspect combination COPD/acute on chronic resp failure, possible volume overload see above monitor cxr on repeat (4) Chronic renal insufficiency: (5) Elevated troponin: (6) Hyperglycemia: (7) Pneumonia: (8) COPD exacerbation: (9) CKD (chronic kidney disease): (10) Mass of upper lobe of left lung: History of Present Illness Chief Complaint: shortness of breath Primary Care Provider: James Perdue MD 77yo male with significant PMHx for severe COPD with chronic hypoxemic respiratory failure on 4L O2 at baseline (prior was on 3L), WENDY (not using CPAP), CAD, SVT, DM II, HTN, HLD, CKD III, anemia presented to ER with EMS for shortness of breath similar to recent admission and discharge on 08/23 with abx for coverage for pneumonia with cefdinir and prednisone taper. Also admitted in Feb for elevated LFTs and found to have ESBL bacteremia, sensitive to Ertapenem/Augmentin and was suspected due to a suspected stone passing/cholangitis. Completed abx through [facility] with [facility]. Last admission, NPO for possible bronch for concerns lung cancer given mass. Last pulm note states f/u CT 6 weeks outpatient setting and eval for bronch eval at that time. Patient was seen in room B4B, he is currently eating lunch. Reports he completed his course of steroids and antibiotics this past monday/ and was feeling slightly improved but increased swelling/shortness of breath, cough but without sputum production. No fevers/chills. BSG elevation but typically he notes he is in the 130-150s range at home on his usual antibiotics. He denies any abdominal pain/nausea/vomiting. He notes the swelling in his legs was getting a little better but now much worse. No calf pain. Discussed I believe he has a little bit of heart failure contributing to his symptoms. Elevated troponin but denies any chest pain. Renal function elevated but not dehydrated on exam, and follows with Dr Quintero typically. No palpitations reported. No urinary symptoms at present, clear urine. O2 sats in 70s w/ EMS, given Duoneb -- CXR about the same but some possible fluid overload component. Given Duoneb x 1, cefepime IV. BSGs to 400s in DM II patient, high for him, and given 4u insulin. CXR w/ Patchy bibasilar and left midlung airspace opacities are suggestive of pneumonia, similar in appearance to the study from 08/19/2022. Spiculated lesion of the lingula is better seen on the comparison chest CT. Severe pulmonary emphysema. Discussed admission for eval/management respiratory failure/diuretics, ECHO to eval valvular heart disease, suspected CHF. He takes Lasix 40mg PO in the AM, 20mg PO PM at baseline but reports he doesn't check his weights at home. Discussed CHF vs cards consult pending echo/response. Weight 75.7kg on admit in August, discharged at 85.3kg -- discharged on increased O2 to 4L from his baseline 3L and is on 6L Oxymask at present, breathing comfortably and eating lunch. Currently weight 82kg. Will give dose IV lasix 40mg at present and monitor response and repeat labs this evening/additional dosing based on output. Daughter works in [employer]/onc at [employer] if needed to contact for any reason. Allergies Allergy/AdvReac Type Severity Reaction Status Date / Time ALYSSA Inhibitors Allergy Severe ANAPHYLAXIS Verified 09/04/22 10:18 Home Medications Medication Instructions Recorded Confirmed Type albuterol sulfate 90 mcg/actuation 2 puff inhalation Q4 PRN Wheezing 12/14/17 09/04/22 History aerosol inhaler atorvastatin 20 mg tablet 20 mg PO HS 12/14/17 09/04/22 History metformin 1,000 mg tablet 1,000 mg PO BID 12/14/17 09/04/22 History nitroglycerin 0.4 mg sublingual 0.4 mg sublingual DIRECTED PRN 12/14/17 09/04/22 History tablet Chest Pain Oxygen Home #1 ea 11/13/18 06/17/22 History aspirin 81 mg tablet,delayed 81 mg PO Q OTHER DAY 11/27/18 09/04/22 History release ascorbic acid (vitamin C) 1,000 mg 1 gm PO QAM 06/05/19 09/04/22 History tablet tiotropium bromide 2.5 2 puff inhalation QAM 10/16/20 09/04/22 History mcg/actuation mist for inhalation (Spiriva Respimat) hydrochlorothiazide 25 mg tablet 25 mg PO BID 07/07/21 09/04/22 History pantoprazole 20 mg tablet,delayed 20 mg PO DAILY 07/07/21 09/04/22 History release ferrous sulfate 325 mg (65 mg 325 mg PO Q OTHER DAY 08/11/21 09/04/22 History iron) tablet (Feosol) mecobalamin (vitamin B12) 1,000 1,000 mcg PO DAILY 10/30/21 09/04/22 History mcg chewable tablet diltiazem HCl 240 mg 240 mg PO BID 12/20/21 09/04/22 History capsule,extended release 24 hr magnesium oxide 500 mg capsule 400 mg PO BID 12/27/21 09/04/22 History Portable Oxygen #1 ea 02/17/22 06/17/22 Rx arformoterol 15 mcg/2 mL solution 2 ml inhalation BID #120 mL 05/13/22 09/04/22 Rx for nebulization dapagliflozin 10 mg tablet 10 mg PO QAM 05/13/22 09/04/22 History (Farxiga) semaglutide 14 mg tablet (Rybelsus) 14 mg PO QAM 05/13/22 09/04/22 History budesonide 0.5 mg/2 mL suspension 0.5 mg (2 mL) inhalation BID #120 06/09/22 09/04/22 Rx for nebulization mL furosemide 20 mg tablet 20 mg PO .COMPLEX #270 tabs 07/21/22 09/04/22 Rx magnesium oxide 400 mg PO BID 09/04/22 09/04/22 History sodium zirconium cyclosilicate 5 5 g PO 3XWK 09/04/22 09/04/22 History gram oral powder packet (Lokelma) Past Med/Surg History Medical History (Updated 09/04/22 @ 15:19 by Louie Atwood MD, [facility]) Abnormal CT scan, chest BPH with obstruction/lower urinary tract symptoms CAD (coronary artery disease) CKD (chronic kidney disease) stage 3, GFR 30-59 ml/min COPD (chronic obstructive pulmonary disease) not well controlled per pt > worse this time of year with humidity DM type 2 (diabetes mellitus, type 2) NIDDM H/O pulmonary emphysema History of arthritis History of cardioversion 2009> SVT History of heart attack pt unaware of this History of nicotine dependence Hyperlipidemia Hypertension Hypomagnesemia Iron deficiency anemia due to chronic blood loss Multiple pulmonary nodules determined by computed tomography of lung On home oxygen therapy 3 LPM continuous WENDY (obstructive sleep apnea) no cpap > O2 continuous Peripheral neuropathy Pneumonia Apr 2019 Pulmonary air trapping Pulmonary air trapping Renal cyst just monitoring Renal cyst SVT (supraventricular tachycardia) dx 2009> diltiazem for this > controlled Surgical History History of bone marrow biopsy July 2019 > checking due to anemia History of cardiac cath 2009 > no stents History of colonoscopy History of esophagogastroduodenoscopy (EGD) History of nasal surgery Status post cataract extraction of both eyes with insertion of intraocular lens [place] teeth extracted Family History Father Diabetes Mother Diabetes Hypertension Other Brain tumor Depression Stroke Social History Smoking Status: Former smoker Tobacco Type: Cigarettes Age Started Using Tobacco: 20; packs per day: 1.0; Second Hand Exposure: No; Do You Dip or Chew Tobacco: No; Tobacco Cessation Education Requested by Patient: No Hx Alcohol Use: Yes Alcohol type: beer Hx Substance Use: No Preferred Language: Yakut Communication Ability: Effective 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 Beliefs That Will Affect Care: None Current Living Situation: Alone Current Living Situation Comment: home alone Other Information That Helps Us Care for You: No Feels Safe at Home: Yes Safety Concerns: Feels Safe At This Time Assistive Devices: Oxygen - Continuous Physical Exam Physical Exam: General: chronically ill appearing male, sitting up in bed, NAD eating lunch Resp: diminished in the bases, expiratory wheezing, bibasilar crackles, on 6-7L Oxymask to maintain saturations CV: regular rate/rhtyhm, no significant m/r/g, 3-4+ pitting edema bilateral LE, calves nontender, pulses palpable GI: +BS, slight distension, +edema, nontender, no guarding/rebound : no santos MSK/Neuro: no focal deficit, no slurred speech, no confusion, generalized weakness throughout Psych: AOx3, cooperative with exam Results & Data Results & Data Vital Signs (Past 12 Hours) Vital Signs Temp Pulse Pulse Resp BP Pulse Ox O2 Del Method 09/04/22 09:30 94 H 21 97 Nebulizer 09/04/22 09:30 146/72 H 09/04/22 09:00 94 H 21 95 Nebulizer 09/04/22 09:00 139/77 09/04/22 08:33 134/81 09/04/22 08:33 95 H 26 H 93 Oxymask 09/04/22 08:30 97 H 17 94 Oxymask 09/04/22 08:00 101 H 25 H 89 L Nasal Cannula 09/04/22 08:00 139/67 09/04/22 07:55 103 H 26 H 78 L Nasal Cannula 09/04/22 07:54 139/64 09/04/22 08:42 96 H 20 93 Oxymask 09/04/22 08:01 Oxymask 09/04/22 08:07 90 Oxymask 09/04/22 08:07 74 L Nasal Cannula, Oxymask 09/04/22 07:55 37.2 C 101 H 21 139/64 78 L Nasal Cannula 09/04/22 07:56 104 H O2 Flow Rate 09/04/22 09:30 09/04/22 09:30 09/04/22 09:00 09/04/22 09:00 09/04/22 08:33 09/04/22 08:33 7 09/04/22 08:30 7 09/04/22 08:00 6 09/04/22 08:00 09/04/22 07:55 4 09/04/22 07:54 09/04/22 08:42 6 09/04/22 08:01 09/04/22 08:07 09/04/22 08:07 4 09/04/22 07:55 4 09/04/22 07:56 Laboratory Results 09/04/22 09/04/22 09/04/22 Range/Units 08:26 08:26 08:26 WBC (4.8-10.8) K/ul RBC (4.70-6.10) M/uL Hgb (14.0-18.0) g/dl Hct (42.0-52.0) % MCV (80.0-100.0) fL MCH (25.0-34.0) pg MCHC (32.0-36.0) g/dL RDW Std Deviation (36.4-46.3) fL RDW Coeff of Arnoldo (11.5-14.5) % Plt Count (130-400) K/uL MPV (9.4-12.4) fL Immature Gran % (Auto) % Neut % (Auto) % Lymph % (Auto) % [place] % (Auto) % Eos % (Auto) % Baso % (Auto) % Neut # (Auto) (1.40-6.50) K/uL Lymph # (Auto) (1.2-3.4) K/uL [place] # (Auto) (0.11-0.59) K/uL Eos # (Auto) (0-0.50) K/uL Baso # (Auto) (0-0.2) K/uL Immature Gran # (Auto) (0.01-0.20) K/uL PT (9.0-12.0) Seconds INR (0.9-1.1) APTT (21.0-31.0) Seconds PTT Ratio VBG pH 7.46 H (7.36-7.41) VBG pCO2 58 H (38-50) mmHg VBG pO2 36 mmHg VBG HCO3 41 mmol/L VBG O2 Saturation 61.9 % VBG Base Excess 15.1 mEq/L Sodium (136-145) mmol/L Potassium (3.5-5.1) mmol/L Chloride (98-107) mmol/L Carbon Dioxide (21-32) mmol/L Anion Gap (3-11) BUN (6-23) mg/dl Creatinine (0.6-1.4) mg/dl Est Cr Clr Drug Dosing ml/min Est GFR ( Amer) ml/min Est GFR (Non-Af Amer) ml/min BUN/Creatinine Ratio (10-20) Glucose (70-99(Fasting)) mg/dl Lactate 1.1 (0.4-2.0) mmol/L Calcium (8.6-10.3) mg/dl Magnesium (1.7-2.4) mg/dl Total Bilirubin (0.2-1.0) mg/dl Direct Bilirubin (0-0.2) mg/dl AST (13-39) U/L ALT (7-52) U/L Alkaline Phosphatase (34-104) U/L Troponin I High Sens (0-20) pg/ml B-Natriuretic Peptide 141 H (0-100) pg/ml Total Protein (6.0-8.3) gm/dl Albumin (3.4-5.0) gm/dl Procalcitonin (0-0.5) ng/ml Adenovirus (PCR) (NotDetected) B. pertussis DNA (PCR) (NotDetected) B.parapertussis DNA PCR (NotDetected) C. pneumoniae DNA (PCR) (NotDetected) Coronavirus OC43 (PCR) (NotDetected) Coronavirus HKU1 (PCR) (NotDetected) Coronavirus 229E (PCR) (NotDetected) SARS-CoV-2 (PCR) (NotDetected) Coronavirus NL63 (PCR) (NotDetected) Human Metapneumovir PCR (NotDetected) Influenza Type A (PCR) (NotDetected) Influenza Type B (PCR) (NotDetected) M. pneumoniae (PCR) (NotDetected) Parainfluenza 1 (PCR) (NotDetected) Parainfluenza 2 (PCR) (NotDetected) Parainfluenza 3 (PCR) (NotDetected) Parainfluenza 4 (PCR) (NotDetected) RSV (PCR) (NotDetected) Entero/Rhino (PCR) (NotDetected) 09/04/22 09/04/22 09/04/22 Range/Units 08:25 08:00 08:00 WBC (4.8-10.8) K/ul RBC (4.70-6.10) M/uL Hgb (14.0-18.0) g/dl Hct (42.0-52.0) % MCV (80.0-100.0) fL MCH (25.0-34.0) pg MCHC (32.0-36.0) g/dL RDW Std Deviation (36.4-46.3) fL RDW Coeff of Arnoldo (11.5-14.5) % Plt Count (130-400) K/uL MPV (9.4-12.4) fL Immature Gran % (Auto) % Neut % (Auto) % Lymph % (Auto) % [place] % (Auto) % Eos % (Auto) % Baso % (Auto) % Neut # (Auto) (1.40-6.50) K/uL Lymph # (Auto) (1.2-3.4) K/uL [place] # (Auto) (0.11-0.59) K/uL Eos # (Auto) (0-0.50) K/uL Baso # (Auto) (0-0.2) K/uL Immature Gran # (Auto) (0.01-0.20) K/uL PT 11.2 (9.0-12.0) Seconds INR 1.0 (0.9-1.1) APTT 25.6 (21.0-31.0) Seconds PTT Ratio 0.9 VBG pH (7.36-7.41) VBG pCO2 (38-50) mmHg VBG pO2 mmHg VBG HCO3 mmol/L VBG O2 Saturation % VBG Base Excess mEq/L Sodium (136-145) mmol/L Potassium (3.5-5.1) mmol/L Chloride (98-107) mmol/L Carbon Dioxide (21-32) mmol/L Anion Gap (3-11) BUN (6-23) mg/dl Creatinine (0.6-1.4) mg/dl Est Cr Clr Drug Dosing ml/min Est GFR ( Amer) ml/min Est GFR (Non-Af Amer) ml/min BUN/Creatinine Ratio (10-20) Glucose (70-99(Fasting)) mg/dl Lactate (0.4-2.0) mmol/L Calcium (8.6-10.3) mg/dl Magnesium (1.7-2.4) mg/dl Total Bilirubin (0.2-1.0) mg/dl Direct Bilirubin (0-0.2) mg/dl AST (13-39) U/L ALT (7-52) U/L Alkaline Phosphatase (34-104) U/L Troponin I High Sens (0-20) pg/ml B-Natriuretic Peptide (0-100) pg/ml Total Protein (6.0-8.3) gm/dl Albumin (3.4-5.0) gm/dl Procalcitonin 1.12 H (0-0.5) ng/ml Adenovirus (PCR) Not Detected (NotDetected) B. pertussis DNA (PCR) Not Detected (NotDetected) B.parapertussis DNA PCR Not Detected (NotDetected) C. pneumoniae DNA (PCR) Not Detected (NotDetected) Coronavirus OC43 (PCR) Not Detected (NotDetected) Coronavirus HKU1 (PCR) Not Detected (NotDetected) Coronavirus 229E (PCR) Not Detected (NotDetected) SARS-CoV-2 (PCR) Not Detected (NotDetected) Coronavirus NL63 (PCR) Not Detected (NotDetected) Human Metapneumovir PCR Not Detected (NotDetected) Influenza Type A (PCR) Not Detected (NotDetected) Influenza Type B (PCR) Not Detected (NotDetected) M. pneumoniae (PCR) Not Detected (NotDetected) Parainfluenza 1 (PCR) Not Detected (NotDetected) Parainfluenza 2 (PCR) Not Detected (NotDetected) Parainfluenza 3 (PCR) Not Detected (NotDetected) Parainfluenza 4 (PCR) Not Detected (NotDetected) RSV (PCR) Not Detected (NotDetected) Entero/Rhino (PCR) Not Detected (NotDetected) 09/04/22 09/04/22 Range/Units 08:00 08:00 WBC 11.32 H (4.8-10.8) K/ul RBC 3.60 L (4.70-6.10) M/uL Hgb 10.1 L (14.0-18.0) g/dl Hct 32.2 L (42.0-52.0) % MCV 89.4 (80.0-100.0) fL MCH 28.1 (25.0-34.0) pg MCHC 31.4 L (32.0-36.0) g/dL RDW Std Deviation 59.2 H (36.4-46.3) fL RDW Coeff of Arnoldo 18.5 H (11.5-14.5) % Plt Count 220 (130-400) K/uL MPV 11.0 (9.4-12.4) fL Immature Gran % (Auto) 0.4 % Neut % (Auto) 90.4 % Lymph % (Auto) 3.7 % [place] % (Auto) 4.2 % Eos % (Auto) 1.1 % Baso % (Auto) 0.2 % Neut # (Auto) 10.23 H (1.40-6.50) K/uL Lymph # (Auto) 0.42 L (1.2-3.4) K/uL [place] # (Auto) 0.48 (0.11-0.59) K/uL Eos # (Auto) 0.12 (0-0.50) K/uL Baso # (Auto) 0.02 (0-0.2) K/uL Immature Gran # (Auto) 0.05 (0.01-0.20) K/uL PT (9.0-12.0) Seconds INR (0.9-1.1) APTT (21.0-31.0) Seconds PTT Ratio VBG pH (7.36-7.41) VBG pCO2 (38-50) mmHg VBG pO2 mmHg VBG HCO3 mmol/L VBG O2 Saturation % VBG Base Excess mEq/L Sodium 133 L (136-145) mmol/L Potassium 5.1 (3.5-5.1) mmol/L Chloride 90 L (98-107) mmol/L Carbon Dioxide 35 H (21-32) mmol/L Anion Gap 8 (3-11) BUN 69 H (6-23) mg/dl Creatinine 2.09 H (0.6-1.4) mg/dl Est Cr Clr Drug Dosing 30.5 ml/min Est GFR ( Amer) 34.8 ml/min Est GFR (Non-Af Amer) 30.1 ml/min BUN/Creatinine Ratio 33.0 H (10-20) Glucose 423 H* (70-99(Fasting)) mg/dl Lactate (0.4-2.0) mmol/L Calcium 8.6 (8.6-10.3) mg/dl Magnesium 2.8 H (1.7-2.4) mg/dl Total Bilirubin 0.5 (0.2-1.0) mg/dl Direct Bilirubin 0.1 (0-0.2) mg/dl AST 32 (13-39) U/L ALT 27 (7-52) U/L Alkaline Phosphatase 58 (34-104) U/L Troponin I High Sens 29.7 H (0-20) pg/ml B-Natriuretic Peptide (0-100) pg/ml Total Protein 6.7 (6.0-8.3) gm/dl Albumin 3.3 L (3.4-5.0) gm/dl Procalcitonin (0-0.5) ng/ml Adenovirus (PCR) (NotDetected) B. pertussis DNA (PCR) (NotDetected) B.parapertussis DNA PCR (NotDetected) C. pneumoniae DNA (PCR) (NotDetected) Coronavirus OC43 (PCR) (NotDetected) Coronavirus HKU1 (PCR) (NotDetected) Coronavirus 229E (PCR) (NotDetected) SARS-CoV-2 (PCR) (NotDetected) Coronavirus NL63 (PCR) (NotDetected) Human Metapneumovir PCR (NotDetected) Influenza Type A (PCR) (NotDetected) Influenza Type B (PCR) (NotDetected) M. pneumoniae (PCR) (NotDetected) Parainfluenza 1 (PCR) (NotDetected) Parainfluenza 2 (PCR) (NotDetected) Parainfluenza 3 (PCR) (NotDetected) Parainfluenza 4 (PCR) (NotDetected) RSV (PCR) (NotDetected) Entero/Rhino (PCR) (NotDetected) Diagnostic Findings Chest X-Ray 09/04/22 08:07 XR chest 1V portable HISTORY: 77 years-old Male Sepsis acute sepsis COMPARISON: Chest radiograph and chest CT studies 08/19/2022 TECHNIQUE: AP view of the chest FINDINGS: Severe emphysema with chronic interstitial coarsening. Cardiac silhouette is enlarged. Patchy bibasilar and left midlung airspace opacities. Spiculated 5.5 cm lesion of the lingula is better seen on the comparison chest CT. Bones appear grossly intact. IMPRESSION: 1. Patchy bibasilar and left midlung airspace opacities are suggestive of pneumonia, similar in appearance to the study from 08/19/2022. 2. Spiculated lesion of the lingula is better seen on the comparison chest CT. 3. Severe pulmonary emphysema. ACT 112: Negative or not required by law. The above report was generated using voice recognition software. It may contain grammatical, syntax or spelling errors. Electronically signed by: Baljeet Srinivasan M.D. 09/04/2022 8:54 AM ECG Additional Comments: EKG NSR 100bpm Supervising Physician Co-Signing Physician Notes PA Supervision Note: I personally saw and examined the patient. I verified all roca points and agree with LETY Pascal with the following exceptions and/or additions: S-Pt here with worsening SOB, requiring more O2 than usual. FOund to have PNA, acute CHF, pulm edema, with chronic but worsening peripheral edema O- Vitals reviewed Gen: [AAOx3, NAD] HEENT: [anicteric sclerae, EOMI] CV: [RRR no mgr nl S1S2] Pulm: [diminished BS throughout, no wheezes] Abd: [+BS soft NT ND no masses or hernias] Ext: [3+ pitting edema legs to thighs bilat Skin: [no rashes, warm/dry] Neuro: [full strength throughout] A/P-77 yo male with history as above, here with acute on chronic hypoxic resp failure, acute on chronic HFpEF, and recurrent PNA with underlying pulm nodule treating with abx, appreciate PULM consult collect spuutm sample, give nebs, no further steroids given severe hyperglycemia gave IV lasix and rising supervisor tower--> consult Nephro for diuretic management of note, last Cardio note recommended decreasing diltiazem to once daily for peripheral edema-Cardio consulted PG Care Time/CCT Total # of Minutes Spent Total Time Spent with Patient: Total time spent is greater than 50% in coordination of care (as documented) at patient's floor/unit and/or counseling patient: Coding Level of Care Code 76797 INT INP/OBS CARE 375MIN Diagnoses Acute and chronic respiratory failure with hypoxia J96.21 WENDY (obstructive sleep apnea) G47.33 CROWE (dyspnea on exertion) R06.09 Chronic renal insufficiency N18.9 Elevated troponin R77.8 Hyperglycemia R73.9 Pneumonia J18.9 COPD exacerbation J44.1 CKD (chronic kidney disease) N18.9 Mass of upper lobe of left lung R91.8
--- NOTE | 2022-09-04 10:10 | Pulmonary Consultation ---
Date of Consultation September 04, 2022 Assessment & Plan (1) Acute and chronic respiratory failure with hypoxia: (2) Pneumonia: (3) WENDY (obstructive sleep apnea): (4) Abnormal CT scan, chest: Plan 2D echo 07/27/2021: Moderate concentric LVH, RV mildly dilated with normal function, RVSP 40-50 mmHg -- Acute on chronic hypoxic respiratory failure Likely from the recent pneumonia that he had Respiratory bio fire negative for everything 09/04/2022 -- Abnormal chest CT From previous admission Recommendation would be to repeat a CT chest in 6 weeks from 08/19/2022 which will be end of September, early October The patient still has same size infiltrate in the lingula then bronchoscopy should be pursued CT chest 08/19/2022 personally reviewed: Severe centrilobular and paraseptal emphysema appreciated bilaterally Infiltrative process appreciated right middle and right lower, left lower as well as in the lingula The lingula infiltrate looks spiculated with air bronchograms -- COPD with chronic hypoxic respiratory failure Gold E, class IV Oh 4 L oxygen at baseline On Spiriva as well as nebulized budesonide and formoterol at home PFT 12/23/2020: Very severe obstructive lung dysfunction FVC 1.79 L 41%, FEV1 0.64 L 19%, TLC 105%, DLCO 32% --Pulmonary hypertension Combination of type II and type III Continue with diuretics --WENDY Sleep study 06/02/2018: Moderate sleep apnea with nocturnal hypoxia Patient was not able to tolerate CPAP Plan: Continue with atypical coverage for total of 5 days I will add hypertonic saline nebulized along with flutter valve Continue with Brovana and Perforomist along with Incruse inhaler on a daily basis Follow-up nasal MRSA Diuretics to keep the patient negative balance BiPAP 12/8 nightly and as needed shortness of breath Goals of care should be discussed with the patient Please note the above document was generated using voice recognition software. It may contain grammatical, syntax or spelling errors.Any formal questions or concerns about the content, text or information contained within the body of this dictation should be directly addressed to the provider for clarification. History of Present Illness History of Present Illness 77-year-old present to the hospital for shortness of breath Past medical history: End-stage COPD, chronic hypoxic respiratory failure, coronary artery disease, diabetes, hypertension, dyslipidemia, CKD Pulmonary consulted for acute on chronic hypoxic respiratory failure Patient follows up with Dr. Bui, he saw the patient on 06/24/2022, previous note reviewed At the time of examination patient was sitting comfortably in the room. He was saturating 93% on 5 L nasal cannula. He stated that he is feeling a little bit better. He did complete his antibiotics as well as prednisone couple of days ago, following that he started to get more short of breath. Denies any chest pain, denies any hemoptysis Does have difficulty bringing up the phlegm No dizziness, has been urinating well. No dysuria, no diarrhea No nausea or vomiting No headache, no blurry vision Social history: Greater than [id number] smoking history Allergies Allergy/AdvReac Type Severity Reaction Status Date / Time ALYSSA Inhibitors Allergy Severe ANAPHYLAXIS Verified 09/04/22 10:18 Home Medications Medication Instructions Recorded Confirmed Type albuterol sulfate 90 mcg/actuation 2 puff inhalation Q4 PRN Wheezing 12/14/17 09/04/22 History aerosol inhaler atorvastatin 20 mg tablet 20 mg PO HS 12/14/17 09/04/22 History metformin 1,000 mg tablet 1,000 mg PO BID 12/14/17 09/04/22 History nitroglycerin 0.4 mg sublingual 0.4 mg sublingual DIRECTED PRN 12/14/17 09/04/22 History tablet Chest Pain Oxygen Home #1 ea 11/13/18 06/17/22 History aspirin 81 mg tablet,delayed 81 mg PO Q OTHER DAY 11/27/18 09/04/22 History release ascorbic acid (vitamin C) 1,000 mg 1 gm PO QAM 06/05/19 09/04/22 History tablet tiotropium bromide 2.5 2 puff inhalation QAM 10/16/20 09/04/22 History mcg/actuation mist for inhalation (Spiriva Respimat) hydrochlorothiazide 25 mg tablet 25 mg PO BID 07/07/21 09/04/22 History pantoprazole 20 mg tablet,delayed 20 mg PO DAILY 07/07/21 09/04/22 History release ferrous sulfate 325 mg (65 mg 325 mg PO Q OTHER DAY 08/11/21 09/04/22 History iron) tablet (Feosol) mecobalamin (vitamin B12) 1,000 1,000 mcg PO DAILY 10/30/21 09/04/22 History mcg chewable tablet diltiazem HCl 240 mg 240 mg PO BID 12/20/21 09/04/22 History capsule,extended release 24 hr magnesium oxide 500 mg capsule 400 mg PO BID 12/27/21 09/04/22 History Portable Oxygen #1 ea 02/17/22 06/17/22 Rx arformoterol 15 mcg/2 mL solution 2 ml inhalation BID #120 mL 05/13/22 09/04/22 Rx for nebulization dapagliflozin 10 mg tablet 10 mg PO QAM 05/13/22 09/04/22 History (Farxiga) semaglutide 14 mg tablet (Rybelsus) 14 mg PO QAM 05/13/22 09/04/22 History budesonide 0.5 mg/2 mL suspension 0.5 mg (2 mL) inhalation BID #120 06/09/22 09/04/22 Rx for nebulization mL furosemide 20 mg tablet 20 mg PO .COMPLEX #270 tabs 07/21/22 09/04/22 Rx magnesium oxide 400 mg PO BID 09/04/22 09/04/22 History sodium zirconium cyclosilicate 5 5 g PO 3XWK 09/04/22 09/04/22 History gram oral powder packet (Lokelma) Patient History Medical History (Updated 09/04/22 @ 15:19 by Louie Atwood MD, [facility]) Abnormal CT scan, chest BPH with obstruction/lower urinary tract symptoms CAD (coronary artery disease) CKD (chronic kidney disease) stage 3, GFR 30-59 ml/min COPD (chronic obstructive pulmonary disease) not well controlled per pt > worse this time of year with humidity DM type 2 (diabetes mellitus, type 2) NIDDM H/O pulmonary emphysema History of arthritis History of cardioversion 2009> SVT History of heart attack pt unaware of this History of nicotine dependence Hyperlipidemia Hypertension Hypomagnesemia Iron deficiency anemia due to chronic blood loss Multiple pulmonary nodules determined by computed tomography of lung On home oxygen therapy 3 LPM continuous WENDY (obstructive sleep apnea) no cpap > O2 continuous Peripheral neuropathy Pneumonia Apr 2019 Pulmonary air trapping Pulmonary air trapping Renal cyst just monitoring Renal cyst SVT (supraventricular tachycardia) dx 2009> diltiazem for this > controlled Surgical History History of bone marrow biopsy July 2019 > checking due to anemia History of cardiac cath 2009 > no stents History of colonoscopy History of esophagogastroduodenoscopy (EGD) History of nasal surgery Status post cataract extraction of both eyes with insertion of intraocular lens [place] teeth extracted Family History Father Diabetes Mother Diabetes Hypertension Other Brain tumor Depression Stroke Social History Smoking Status: Former smoker Tobacco Type: Cigarettes Age Started Using Tobacco: 20; packs per day: 1.0; Second Hand Exposure: No; Do You Dip or Chew Tobacco: No; Hx Alcohol Use: Yes Alcohol type: beer Hx Substance Use: No Preferred Language: Upper Sorbian Communication Ability: Effective Necktie Stitcher Required: No Beliefs That Will Affect Care: None Current Living Situation: Alone Current Living Situation Comment: home alone Feels Safe at Home: Yes Assistive Devices: Nebulizer and Oxygen - Continuous Review of Systems Review of Systems: All systems reviewed & are unremarkable except as noted in HPI & below Physical Exam Physical Exam: Constitutional: No acute distress HEENT: EOMI, PERRLA Respiratory system: Decreased air entry bilaterally, no wheeze, no rhonchi, mild crackles bilateral lower lobes CVS: S1-S2 positive, no murmurs or gallops Abdomen: Soft, nontender, nondistended, positive bowel sounds x4 Extremities: +2 pulses bilaterally radialis/ dorsalis pedis, no cyanosis, +3 pitting edema bilateral lower extremity Neuro: Awake alert oriented x3 Psych: Normal mood and affect G/U: No Mccarthy Skin: no rashes, warm and dry Lymphatic: no cervical or axillary lymphadenopathy Results & Data Results & Data Vital Signs (Past 12 Hours) Vital Signs Temp Pulse Pulse Resp BP Pulse Ox O2 Del Method 09/04/22 09:30 94 H 21 97 Nebulizer 09/04/22 09:30 146/72 H 09/04/22 09:00 94 H 21 95 Nebulizer 09/04/22 09:00 139/77 09/04/22 08:33 134/81 09/04/22 08:33 95 H 26 H 93 Oxymask 09/04/22 08:30 97 H 17 94 Oxymask 09/04/22 08:00 101 H 25 H 89 L Nasal Cannula 09/04/22 08:00 139/67 09/04/22 07:55 103 H 26 H 78 L Nasal Cannula 09/04/22 07:54 139/64 09/04/22 08:42 96 H 20 93 Oxymask 09/04/22 08:01 Oxymask 09/04/22 08:07 90 Oxymask 09/04/22 08:07 74 L Nasal Cannula, Oxymask 09/04/22 07:55 37.2 C 101 H 21 139/64 78 L Nasal Cannula 09/04/22 07:56 104 H O2 Flow Rate 09/04/22 09:30 09/04/22 09:30 09/04/22 09:00 09/04/22 09:00 09/04/22 08:33 09/04/22 08:33 7 09/04/22 08:30 7 09/04/22 08:00 6 09/04/22 08:00 09/04/22 07:55 4 09/04/22 07:54 09/04/22 08:42 6 09/04/22 08:01 09/04/22 08:07 09/04/22 08:07 4 09/04/22 07:55 4 09/04/22 07:56 Laboratory Results 09/04/22 08:00 09/04/22 08:00 PG Care Time/CCT Total # of Minutes Spent Total Time Spent with Patient: Total time spent is greater than 50% in coordination of care (as documented) at patient's floor/unit and/or counseling patient: Coding Level of Care Code 76672 INT INP/OBS CARE 3/75MIN Diagnoses Acute and chronic respiratory failure with hypoxia J96.21 Pneumonia J18.9 WENDY (obstructive sleep apnea) G47.[address] scan, chest R93.89
[2022-09-04] MEDS ORDERED: FUROSEMIDE 40 MG/4 ML VIAL IV ONE ×3 (10:36→10:40)
[2022-09-04 11:09] LABS: Troponin I High Sensitivity 28.4 pg/ml (0-20)
[2022-09-04 11:23] LABS: Ferritin 248.8 ng/ml (8-388)
[2022-09-04 11:51] LABS: Appearance Urine Clear (Clear); Bacteria Urine Automated Negative (Negative); Bilirubin Urine Negative (Negative); Blood Urine Negative (Negative); Cast Urine Automated 0 /lpf (0-5); Color Urine Yellow; Epithelial Cell Urine Auto 20-30 /lpf (0-5); Glucose Urine UA 3+ (Negative); Ketones Urine Negative (Negative); Leukocyte Esterase Urine Trace (Negative); Nitrite Urine Negative (Negative); Protein Urine 2+ (Negative); RBC Urine Automated 0-4 /hpf (0-4); Specific Gravity Urine 1.021 (1.000-1.030); Urobilinogen Urine Negative (Negative)
[2022-09-04] MEDS ORDERED: ALBUTEROL HFA 8 GM INHALER INH PRN (13:03)
[2022-09-04] MEDS ORDERED: DEXTROSE 50% 50 ML SYRINGE IV PRN (13:03)
[2022-09-04] MEDS ORDERED: ONDANSETRON INJ 2 MG/ML 2 ML VIAL IV PRN (13:03)
[2022-09-04] MEDS ORDERED: GLUCAGON FOR INJ 1 MG VIAL SQ PRN (13:03)
[2022-09-04] MEDS ORDERED: PHARMACY GLYCEMIC MGMT CONSULT PRN (13:03)
[2022-09-04] MEDS ORDERED: CARBOHYDRATES FOR HYPOGLYCEMIA PO PRN (13:03)
[2022-09-04] MEDS ORDERED: GLUCOSE 40% GEL 15 GM TUBE PO PRN (13:03)
[2022-09-04] MEDS ORDERED: GLUCOSE 10 TAB/TUBE PO PRN (13:03)
[2022-09-04] MEDS ORDERED: NITROGLYCERIN SL 0.4 MG/TAB TAB SL PRN (13:03)
[2022-09-04] MEDS ORDERED: ACETAMINOPHEN 325 MG TAB PO PRN (13:03)
[2022-09-04] MEDS ORDERED: INSULIN HUMAN REGULAR PER UNIT 10 UNITS in SYRINGE 9.9 ML IV ONE (13:30)
[2022-09-04] MEDS: BUDESONIDE 0.5 MG/2 ML VIAL (PULMICORT) INH SCH ×2 (13:41→19:15)
[2022-09-04] MEDS: ALBUT/IPRATROP 3MG/0.5MG NEB 3 ML VIAL NEB SCH ×4 (13:42→22:54)
[2022-09-04] MEDS ORDERED: LANTUS PER UNIT CHARGE SC ONE (14:00)
[2022-09-04] MEDS: INSULIN ASPART PER UNIT CHARGE SC SCH ×4 (14:08→20:55)
--- NOTE | 2022-09-04 14:11 | Pharmacy Report ---
Pharmacy Glycemic Short Note 2 - Date of Service September 04, 2022 - Glycemic Short BSG Results (Last 24 hours): 09/04/22 09/04/22 09/04/22 08:00 13:06 13:08 Glucose 423 H* POC Glucose 512 H* 507 H* OUTPATIENT ANTIDIABETIC REGIMEN: * Farxiga 10 mg PO daily * Metformin 1 gm PO BID * Semaglutide 14 mg PO QAM HbA1c = 6.8% on 08/20/22 ASSESSMENT: * 77 y/o M admitted for respiratory failure, CHF vs COPD exacerbation. Patient was on three different oral anti-diabetic meds at home for Type 2 diabetes. He also has history of chronic kidney disease. * Received IV Solu medrol 125 mg in ED today AM. BSG on admission was 423 mg/dl. This afternoon BSG trended up to 512 mg/dl most likely steroid induced. * Pharmacy consulted this afternoon after hospitalist ordered 10 units of IV regular insulin. Patient is known to glycemic service from recent admissions. * Novolog ordered based on stress of 3 and tighter carb ratio as his last admission in August 2022. * Basal dose of 20 units x1 given this afternoon and a dose scale added for HS based on BSG. PLAN FOR INPATIENT GLYCEMIC CONTROL: * Hold outpatient oral diabetes medications * Basal insulin * Lantus 20 units SQ x1 today afternoon * Lantus 10-15 units SQ HS based on BSG * Bolus insulin * NovoLog per scale ACHS or Q6hrs while NPO * Goal Range: Low 110 mg/dL - High 140 mg/dL * Correction Factor: 20 mg/dL/unit * Nutritional / Prandial insulin per carb ratio of 1 unit per 5 grams CHO consumed
[2022-09-04] MEDS: PANTOprazole 40 MG TAB PO SCH (14:17)
[2022-09-04] MEDS: DOXYCYCLINE HYCLATE 100 MG in DEXTROSE 5% 100 ML IV SCH (14:17)
[2022-09-04] MEDS ORDERED: SODIUM CHLORIDE 0.65% NA SOLN 45 ML (OCEAN) ONE (14:46)
[2022-09-04 15:48] LABS: BUN Creatinine Ratio 31.6 (10-20); Calcium 8.9 mg/dl (8.6-10.3); Creatinine Clr Calc Pharmacy 28.4 ml/min; Est GFR (African American) 31.9 ml/min; Est GFR (Non-African American) 27.5 ml/min; Potassium 4.7 mmol/L (3.5-5.1)
[2022-09-04] MEDS: SODIUM CHLOR 7% 4 ML NEB NEB SCH (19:15)
[2022-09-04] MEDS: FORMOTEROL 20 MCG/2 ML VIAL INH SCH (19:15)
[2022-09-04] MEDS ORDERED: INSULIN PROTOCOL GOAL RANGE ONE (19:20)
[2022-09-04] MEDS ORDERED: STAT IV STA (19:20)
[2022-09-04] MEDS ORDERED: NovoLIN-R BOLUS FROM BAG IV ONE (19:30)
[2022-09-04] MEDS ORDERED: INSULIN REGULAR 250 UNITS in SODIUM CHLORIDE 0.9% 247.5 ML IV SCH (19:30)
[2022-09-04] MEDS: LANTUS PER UNIT CHARGE SC SCH (20:47)
[2022-09-04] MEDS: ATORVASTATIN 20 MG TAB PO SCH (20:51)
[2022-09-04] MEDS: HEPARIN SOD 5,000 UNIT/0.5 ML VIAL SQ SCH (20:51)
[2022-09-04] MEDS: MAGNESIUM OXIDE 400 MG TAB PO SCH (20:52)
[2022-09-04] MEDS: dilTIAZem HCL 240 MG CAPCR PO SCH (20:52)
[2022-09-04] MEDS: CEFEPIME 2,000 MG in SYRINGE 0 ML IV SCH (22:41)
[2022-09-05] MEDS: ALBUT/IPRATROP 3MG/0.5MG NEB 3 ML VIAL NEB SCH ×6 (02:06→23:04)
[2022-09-05] MEDS: DOXYCYCLINE HYCLATE 100 MG in DEXTROSE 5% 100 ML IV SCH ×2 (02:24→13:22)
[2022-09-05] MEDS: INSULIN ASPART PER UNIT CHARGE SC SCH ×5 (04:32→21:10)
[2022-09-05] MEDS: guaiFENesin 600 MG TABCR PO SCH ×2 (05:12→21:18)
[2022-09-05] MEDS: FORMOTEROL 20 MCG/2 ML VIAL INH SCH ×2 (07:02→19:44)
[2022-09-05] MEDS: BUDESONIDE 0.5 MG/2 ML VIAL (PULMICORT) INH SCH ×2 (07:02→19:44)
[2022-09-05] MEDS: SODIUM CHLOR 7% 4 ML NEB NEB SCH ×2 (07:02→19:44)
--- NOTE | 2022-09-05 07:28 | Hospitalist Progress Note ---
Date of Service September 05, 2022 Assessment & Plan (1) Acute and chronic respiratory failure with hypoxia: (2) COPD, severe: (3) CKD (chronic kidney disease) stage 3, GFR 30-59 ml/min: (4) DM type 2 (diabetes mellitus, type 2): (5) WENDY (obstructive sleep apnea): (6) Pneumonia: (7) CROWE (dyspnea on exertion): (8) Chronic renal insufficiency: (9) Anemia: (10) Coronary artery disease: (11) Mass of upper lobe of left lung: Gail Summers is a 77 y/o M with PMHx of COPD with chronic hypoxemic respiratory failure (4L O2 requirement), WENDY (not using CPAP), CKD III, CAD, SVT, DM II, HTN, HLD and anemia who presented to the ED on 09/04/22 with SOB. He was discharged on 08/23/22 on Cefdinir and predinose taper. In 05/2022 he had ESBL bacteremia secondary to suspected cholangitis, which was sensitive to Ertapenem/Augmentin. #Acute on chronic respiratory failure with hypoxia #Dyspnea of exertion #COPD Gold E, class IV, on 4L oxygen at home VBG on admission: alkalosis, hypercapnea ABG: metabolic alkalosis (pH 7.49, HCO3 34, PaO2 97.5) WBC 11.32 in the setting of prednisone taper, procalcitonin 1.12, UA noninfectious, BioFire negative. Sputum/blood cx pending. Nasal MRSA negative. Appreciate pulm input: COPD is end-stage. Atypical coverage for 5 total days, hypertonic saline nebulized, flutter valve, Brovana/Formoterol + Incruse Ellipta inhaler on a daily basis, BiPAP 03/10 nightly and PRN. Considering navigational bronchoscopy later this week. Doxycycline switched to azithromycin, on day two (5 day course to end 09/08); doxycycline, cefepime discontinued Consider long-term azithromycin regimen as outpatient (250mg 3 days/week) CXR: similar to 08/19/22, patchy bibasilar and left midlung airspace opacities suggest pneumonia #Acute on chronic diastolic CHF BNP mildly elevated at 141 on admission. Bilateral pitting edema in the LE is around his baseline. Echo 09/05/22: EF 60-65%, no wall motion abnormalities, moderate concentric LVH. Mildly dilated RV, RA. Moderate pulmonary HTN (RVSP 53mmHg, ~stable from 40- 50mmHg on 07/27/21). Very small pericardial effusion along RV. Lasix 40 mg PO qAM, current output -1069mL Home meds: Lasix 60mg (40mg in the AM, 20mg PO in the PM) Monitor kidney function, I/Os (1500mL fluid restriction), weights *anaphylactic reaction to ALYSSA-inhibitors Cardio input appreciated - do not suspect cardiac etiology Discussed dietary salt consumption #Mass of upper lobe of left lung CT 08/19/22: parahilar left upper lobe measuring 3.7 x 4.3 x 5.4 cm, spiculated lesion of the lingula Appreciate pulm consult: considering navigational bronchoscopy later this week Palliative following, input appreciated #DM2 Glucose to ~400s on admission. Sliding scale insulin HgbA1C 6.8% from last admission, repeat pending Home meds: Metformin 1gm BID, dapagliflozin, semaglutide Continue to monitor with DM protocol #Elevated troponin Mildly elevated at 29.7 on admission, downtrending Suspect secondary to pulmonary HTN/RV strain #CKD stage III BUN 73, Cr 2.13. Elevated above baseline (last discharge Cr was 1.87) Follows with Dr. Quintero as an outpatient. On [facility] 3x/week Monitor BMP - potassium stable Nephro input appreciated #chronic anemia, normocytic Hgb 10.1, up from 8.8 on last admission At home: Iron every other day Prior need for Retracit, IV iron #Hypertension Holding at home HCTZ 25 mg PO BID Diltiazem 240 mg PO BID #CAD Cath 2014: multivessel disease Aspirin 81 mg PO q other day, atorvastatin 20mg PO qHS, diltiazem 240 mg PO BID #WENDY Not using CPAP at home Appreciate pulm input: BiPAP 12/8 nightly and PRN FENGI: carb consistent/heart healthy DVT ppx: heparin SQ Full code Admission and Anticipated Discharge Date Admission Date: September 04, 2022 Supervising Physician Co-Signing Physician Notes I personally examined the patient and verified all roca points of history and exam, discussed case, and agree with decision making with Lisy Farmer MS4 Breathing feels reasonably welldefinitely better than yesterday. Discussed that pulmonary was talking about possibly doing bronchoscopy. Discussed with palliative as well. Vitals noted, in general he is awake and alert pleasant no distress. HEENT normocephalic atraumatic mucous membranes moist. Breathing unlabored no accessory muscle use good effort. Skin shows no rashes no pallor or icterus. CBC, BMP, chest x-ray, pulmonary function test from the [facility] reviewed. Severe COPDdoes not really seem to have pneumonia, does not appear consistent with CHF exacerbationmostly appears to just be in a baseline variability of very severe COPD. Continue inhalers, transition doxycycline over to azithromycinwith intent for chronic end-stage COPD type management. Stop cefepime given that there is no clear infiltrate. Will defer to pulmonary regarding bronchoscopy. Appreciate team input. Otherwise as above Marshall Summers is sitting upright on the side of the bed making phone calls. He normally sleeps flat on a bed with 1 pillow. Beginning on -Mon of last week (09/01- 09/02) he started to feel more SOB and sleep in his recliner chair. At-home requirement is 4L O2. Walking to the bathroom would cause significant SOB, with his oxygen saturations dipping to the 60s at their lowest (measured by at-home SpO2). He was alarmed when his saturations didn't reach the 90s, even at rest, which prompted him to seek medical care. He did not have any chest pain, palpitations, lightheadedness or syncope. Regarding his last hospitalization for multifocal pneumonia (discharged 08/23/22), he does not have any lingering fevers or chills. Finished 5 day course azithromycin and 14 day course Cefdinir. Last night around 4am he had a coughing spell. Otherwise, his baseline cough that occasionally produces clear/owusu sputum is unchanged. Since his most recent discharge, he noted increased bilateral lower extremity swelling, slightly up from baseline. He sometimes eats frozen meals at home which do have relatively high salt content, but tries to stay conscious of salt intake. He used to smoke cigarettes (~50 PY history) and quit smoking in ~2019. Review of Systems Review of Systems: All systems reviewed & are unremarkable except as noted in HPI & below Physical Exam Physical Exam: Appearance: NAD, sitting upright, 4L nasal cannula Respiratory: SpO2 95% on 4L oxygen. No accessory muscle use, no conversational dyspnea. No central or peripheral cyanosis. Coarse breath sounds in lungs BL, without crackles. Cardiovascular: normal S1, S2, no M/R/G Mild pitting edema in both lower extremities Gastrointestinal (Abdomen): No abdominal distention, no fluid wave, normal bowel sounds, no pain/rebound/guarding to palpation Neurologic: Alert, answering questions appropriately Results & Data Results & Data Vital Signs (Past 12 Hours) Vital Signs Temp Pulse Pulse Resp BP Pulse Ox O2 Del Method 09/05/22 07:11 36.5 C 89 20 159/78 H 09/05/22 07:02 86 18 93 Nasal Cannula 09/05/22 04:08 36.4 C L 99 H 22 174/75 H 91 Nasal Cannula 09/05/22 02:06 81 16 92 Nasal Cannula 09/05/22 00:00 79 09/05/22 00:01 36.4 C L 76 22 145/70 H 93 Nasal Cannula 09/04/22 22:54 79 18 89 L Nasal Cannula 09/04/22 20:00 Nasal Cannula 09/04/22 19:44 36.4 C L 76 18 149/70 H 90 Nasal Cannula O2 Flow Rate 09/05/22 07:11 09/05/22 07:02 4 09/05/22 04:08 4 09/05/22 02:06 4 09/05/22 00:00 09/05/22 00:01 4 09/04/22 22:54 4 09/04/22 20:00 4 09/04/22 19:44 4 Laboratory Results Laboratory Results WBC 11.21 K/ul (4.8-10.8) H 09/05/22 07:42 RBC 3.58 M/uL (4.70-6.10) L 09/05/22 07:42 Hgb 9.8 g/dl (14.0-18.0) L 09/05/22 07:42 Hct 31.1 % (42.0-52.0) L 09/05/22 07:42 MCV 86.9 fL (80.0-100.0) 09/05/22 07:42 MCH 27.4 pg (25.0-34.0) 09/05/22 07:42 MCHC 31.5 g/dL (32.0-36.0) L 09/05/22 07:42 RDW Std Deviation 56.7 fL (36.4-46.3) H 09/05/22 07:42 RDW Coeff of Arnoldo 17.9 % (11.5-14.5) H 09/05/22 07:42 Plt Count 198 K/uL (130-400) 09/05/22 07:42 MPV 11.1 fL (9.4-12.4) 09/05/22 07:42 Immature Gran % (Auto) 0.5 % 09/05/22 07:42 Neut % (Auto) 96.2 % 09/05/22 07:42 Lymph % (Auto) 2.1 % 09/05/22 07:42 [place] % (Auto) 1.2 % 09/05/22 07:42 Eos % (Auto) 0.0 % 09/05/22 07:42 Baso % (Auto) 0.0 % 09/05/22 07:42 Neut # (Auto) 10.77 K/uL (1.40-6.50) H 09/05/22 07:42 Lymph # (Auto) 0.24 K/uL (1.2-3.4) L 09/05/22 07:42 [place] # (Auto) 0.14 K/uL (0.11-0.59) 09/05/22 07:42 Eos # (Auto) 0.00 K/uL (0-0.50) 09/05/22 07:42 Baso # (Auto) 0.00 K/uL (0-0.2) 09/05/22 07:42 Immature Gran # (Auto) 0.06 K/uL (0.01-0.20) 09/05/22 07:42 Polychromasia 1+ 09/05/22 07:42 PT 11.2 Seconds (9.0-12.0) 09/04/22 08:00 INR 1.0 (0.9-1.1) 09/04/22 08:00 APTT 25.6 Seconds (21.0-31.0) 09/04/22 08:00 PTT Ratio 0.9 09/04/22 08:00 ABG pH 7.49 (7.35-7.45) H 09/05/22 07:40 ABG pCO2 44 mmHg (35-46) 09/05/22 07:40 ABG pO2 81 mmHg (80-95) 09/05/22 07:40 ABG HCO3 34 mmol/L (19-24) H 09/05/22 07:40 ABG O2 Saturation 97.5 % (90-95) H 09/05/22 07:40 ABG Base Excess 9.0 mEq/L (-9-1.8) H 09/05/22 07:40 Jose Test Pos (Pos) 09/05/22 07:40 VBG pH 7.46 (7.36-7.41) H 09/04/22 08:26 VBG pCO2 58 mmHg (38-50) H 09/04/22 08:26 VBG pO2 36 mmHg 09/04/22 08:26 VBG HCO3 41 mmol/L 09/04/22 08:26 VBG O2 Saturation 61.9 % 09/04/22 08:26 VBG Base Excess 15.1 mEq/L 09/04/22 08:26 Oxygen Given 4L 09/05/22 07:40 Sodium 135 mmol/L (136-145) L 09/05/22 07:42 Potassium 4.6 mmol/L (3.5-5.1) 09/05/22 07:42 Chloride 92 mmol/L (98-107) L 09/05/22 07:42 Carbon Dioxide 33 mmol/L (21-32) H 09/05/22 07:42 Anion Gap 10 (3-11) 09/05/22 07:42 BUN 73 mg/dl (6-23) H 09/05/22 07:42 Creatinine 2.13 mg/dl (0.6-1.4) H 09/05/22 07:42 Est Cr Clr Drug Dosing 30.0 ml/min 09/05/22 07:42 Est GFR ( Amer) 34.1 ml/min 09/05/22 07:42 Est GFR (Non-Af Amer) 29.4 ml/min 09/05/22 07:42 BUN/Creatinine Ratio 34.3 (10-20) H 09/05/22 07:42 Glucose 228 mg/dl (70-99(Fasting)) H 09/05/22 07:42 POC Glucose 212 mg/dl (70-99) H 09/05/22 11:25 Estimat Average Glucose 183 mg/dl 09/05/22 07:42 Hemoglobin A1c 8.0 % (4.5-5.6) H 09/05/22 07:42 Lactate 1.1 mmol/L (0.4-2.0) 09/04/22 08:26 Calcium 8.8 mg/dl (8.6-10.3) 09/05/22 07:42 Magnesium 2.7 mg/dl (1.7-2.4) H 09/05/22 07:42 Iron 17 mcg/dl (35-175) L 09/04/22 10:04 TIBC 216 mcg/dl (250-450) L 09/04/22 10:04 Unsaturated IBC 199 mcg/dl (155-355) 09/04/22 10:04 Transferrin % Sat 8 % (20-50) L 09/04/22 10:04 Ferritin 248.8 ng/ml (8-388) 09/04/22 10:04 Total Bilirubin 0.4 mg/dl (0.2-1.0) 09/05/22 07:42 Direct Bilirubin 0.1 mg/dl (0-0.2) 09/04/22 08:00 AST 26 U/L (13-39) 09/05/22 07:42 ALT 28 U/L (7-52) 09/05/22 07:42 Alkaline Phosphatase 55 U/L (34-104) 09/05/22 07:42 Troponin I High Sens 22.1 pg/ml (0-20) H 09/04/22 16:36 B-Natriuretic Peptide 141 pg/ml (0-100) H 09/04/22 08:26 Total Protein 7.0 gm/dl (6.0-8.3) 09/05/22 07:42 Albumin 3.5 gm/dl (3.4-5.0) 09/05/22 07:42 Globulin 3.5 gm/dl (2.5-4.0) 09/05/22 07:42 Albumin/Globulin Ratio 1.0 (0.9-2) 09/05/22 07:42 Vitamin B12 940 pg/ml (180-914) H 09/04/22 10:06 Folate 15.95 ng/ml (>5.38) 09/04/22 10:06 Procalcitonin 1.12 ng/ml (0-0.5) H 09/04/22 08:00 TSH 1.476 uIu/ml (0.300-4.500) 09/04/22 10:04 Urine Color Yellow 09/04/22 11:40 Urine Appearance Clear (Clear) 09/04/22 11:40 Urine pH 7.0 (4.5-7.5) 09/04/22 11:40 Ur Specific Bruce 1.021 (1.000-1.030) 09/04/22 11:40 Urine Protein 2+ (Negative) H 09/04/22 11:40 Urine Glucose (UA) 3+ (Negative) H 09/04/22 11:40 Urine Ketones Negative (Negative) 09/04/22 11:40 Urine Blood Negative (Negative) 09/04/22 11:40 Urine Nitrite Negative (Negative) 09/04/22 11:40 Urine Bilirubin Negative (Negative) 09/04/22 11:40 Urine Urobilinogen Negative (Negative) 09/04/22 11:40 Ur Leukocyte Esterase Trace (Negative) H 09/04/22 11:40 Urine WBC (Auto) 1-5 /hpf (0-5) 09/04/22 11:40 Urine RBC (Auto) 0-4 /hpf (0-4) 09/04/22 11:40 U Hyaline Cast (Auto) 0 /lpf (0-5) 09/04/22 11:40 U Epithel Cells (Auto) 20-30 /lpf (0-5) H 09/04/22 11:40 Urine Bacteria (Auto) Negative (Negative) 09/04/22 11:40 Nasal Screen MRSA (PCR) Negative (Negative) 09/04/22 14:45 Adenovirus (PCR) Not Detected (NotDetected) 09/04/22 08:25 B. pertussis DNA (PCR) Not Detected (NotDetected) 09/04/22 08:25 B.parapertussis DNA PCR Not Detected (NotDetected) 09/04/22 08:25 C. pneumoniae DNA (PCR) Not Detected (NotDetected) 09/04/22 08:25 Coronavirus OC43 (PCR) Not Detected (NotDetected) 09/04/22 08:25 Coronavirus HKU1 (PCR) Not Detected (NotDetected) 09/04/22 08:25 Coronavirus 229E (PCR) Not Detected (NotDetected) 09/04/22 08:25 SARS-CoV-2 (PCR) Not Detected (NotDetected) 09/04/22 08:25 Coronavirus NL63 (PCR) Not Detected (NotDetected) 09/04/22 08:25 Human Metapneumovir PCR Not Detected (NotDetected) 09/04/22 08:25 Influenza Type A (PCR) Not Detected (NotDetected) 09/04/22 08:25 Influenza Type B (PCR) Not Detected (NotDetected) 09/04/22 08:25 M. pneumoniae (PCR) Not Detected (NotDetected) 09/04/22 08:25 Parainfluenza 1 (PCR) Not Detected (NotDetected) 09/04/22 08:25 Parainfluenza 2 (PCR) Not Detected (NotDetected) 09/04/22 08:25 Parainfluenza 3 (PCR) Not Detected (NotDetected) 09/04/22 08:25 Parainfluenza 4 (PCR) Not Detected (NotDetected) 09/04/22 08:25 RSV (PCR) Not Detected (NotDetected) 09/04/22 08:25 Entero/Rhino (PCR) Not Detected (NotDetected) 09/04/22 08:25 Impressions Chest X-Ray 09/05/22 07:00 XR chest 1V portable HISTORY: 77 years-old Male follow up acute shortness of breath COMPARISON: Chest radiograph 09/04/2022, chest CT 08/19/2022 TECHNIQUE: AP view of the chest FINDINGS: Severe emphysema with chronic interstitial coarsening. Cardiac silhouette is enlarged. Patchy bibasilar and left midlung airspace opacities. Spiculated 5.5 cm lesion of the lingula is better seen on the comparison chest CT. Skin fold projects over the left upper lung. Bones appear grossly intact. IMPRESSION: 1. Patchy bibasilar and left midlung airspace opacities are suggestive of pneumonia, stable from prior. 2. Spiculated lesion of the lingula is better seen on the comparison chest CT. 3. Severe pulmonary emphysema. ACT 112: Negative or not required by law. The above report was generated using voice recognition software. It may contain grammatical, syntax or spelling errors. Electronically signed by: Baljeet Srinivasan M.D. 09/05/2022 7:45 AM (4) DM type 2 (diabetes mellitus, type 2) Diabetes mellitus complication status: without complication Diabetes mellitus [facility] insulin use: without [facility] use Qualified Code(s): E11.9 - Type 2 diabetes mellitus without complications (9) Anemia Anemia type: unspecified type Qualified Code(s): D64.9 - Anemia, unspecified (10) Coronary artery disease Associated angina: without angina Coronary Disease-Associated Artery/Lesion t ype: [place] artery [place] vs. transplanted heart: [place] heart Qualified Code(s): I25.10 - Atherosclerotic heart disease of [place] coronary artery without angina pectoris
--- NOTE | 2022-09-05 07:37 | Hospitalist Progress Note ---
Date of Service September 05, 2022 Assessment & Plan Admission and Anticipated Discharge Date Admission Date: September 04, 2022 Results & Data Results & Data Vital Signs (Past 12 Hours) Vital Signs Temp Pulse Pulse Resp BP Pulse Ox O2 Del Method 09/05/22 07:11 36.5 C 89 20 159/78 H 97 Nasal Cannula 09/05/22 07:02 86 18 93 Nasal Cannula 09/05/22 04:08 36.4 C L 99 H 22 174/75 H 91 Nasal Cannula 09/05/22 02:06 81 16 92 Nasal Cannula 09/05/22 00:00 79 09/05/22 00:01 36.4 C L 76 22 145/70 H 93 Nasal Cannula 09/04/22 22:54 79 18 89 L Nasal Cannula 09/04/22 20:00 Nasal Cannula 09/04/22 19:44 36.4 C L 76 18 149/70 H 90 Nasal Cannula O2 Flow Rate 09/05/22 07:11 4 09/05/22 07:02 4 09/05/22 04:08 4 09/05/22 02:06 4 09/05/22 00:00 09/05/22 00:01 4 09/04/22 22:54 4 09/04/22 20:00 4 09/04/22 19:44 4
--- NOTE | 2022-09-05 07:46 | XRay Report ---
XR chest 1V portable HISTORY: 77 years-old Male follow up acute shortness of breath COMPARISON: Chest radiograph 09/04/2022, chest CT 08/19/2022 TECHNIQUE: AP view of the chest FINDINGS: Severe emphysema with chronic interstitial coarsening. Cardiac silhouette is enlarged. Patchy bibasil ar and left midlung airspace opacities. Spiculated 5.5 cm lesion of the lingula is better seen on the comparison chest CT. Skin fold projects over the left upper lung. Bones appear grossly intact. IMPRESSION: 1. Patchy bibasilar and left midlung airspace opacities are suggestive of pneumonia, stable from prio r. 2. Spiculated lesion of the lingula is better seen on the comparison chest CT. 3. Severe pulmonary emphysema. ACT 112: Negative or not required by law. The above report was generated using voice recognition software. It may contain grammatical, syntax o r spelling errors. Electronically signed by: Baljeet Srinivasan M.D. 09/05/2022 7:45 AM
[2022-09-05 08:00] LABS: HCO3 ABG 34 mmol/L (19-24); Oxygen Saturation ABG 97.5 % (90-95); PCO2 ABG 44 mmHg (35-46); PO2 ABG 81 mmHg (80-95); pH ABG 7.49 (7.35-7.45)
[2022-09-05 08:05] LABS: Allen Test Pos (Pos)
[2022-09-05] MEDS: ASPIRIN 81 MG ECTAB PO SCH (08:05)
[2022-09-05] MEDS: UMECLIDINIUM BROMIDE 62.5MCG/BLISTER 7 PUFFS/INHALER INH SCH (08:05)
[2022-09-05] MEDS: MAGNESIUM OXIDE 400 MG TAB PO SCH ×2 (08:05→21:19)
[2022-09-05] MEDS: ASCORBIC ACID 500 MG TAB PO SCH (08:05)
[2022-09-05] MEDS: dilTIAZem HCL 240 MG CAPCR PO SCH ×2 (08:05→21:17)
[2022-09-05] MEDS: PANTOprazole 40 MG TAB PO SCH (08:05)
[2022-09-05] MEDS: HEPARIN SOD 5,000 UNIT/0.5 ML VIAL SQ SCH ×2 (08:05→21:17)
[2022-09-05 08:10] LABS: Estimated Average Glucose 183 mg/dl
[2022-09-05 08:20] LABS: Albumin Level 3.5 gm/dl (3.4-5.0); BUN Creatinine Ratio 34.3 (10-20); Bilirubin,Total 0.4 mg/dl (0.2-1.0); Calcium 8.8 mg/dl (8.6-10.3); Est GFR (African American) 34.1 ml/min; Est GFR (Non-African American) 29.4 ml/min; Globulin 3.5 gm/dl (2.5-4.0); Magnesium 2.7 mg/dl (1.7-2.4); Potassium 4.6 mmol/L (3.5-5.1)
--- NOTE | 2022-09-05 08:32 | XCELERA ---
[id number] [id number]
[2022-09-05 08:38] LABS: Hematocrit (blood only) 31.1 % (42.0-52.0); Hemoglobin 9.8 g/dl (14.0-18.0); Immature Granulocytes # (auto) 0.06 K/uL (0.01-0.20); Immature Granulocytes % (auto) 0.5 %; Lymphocytes # (auto) 0.24 K/uL (1.2-3.4); Lymphocytes % (auto) 2.1 %; Mean Corpuscular Hemoglobin 27.4 pg (25.0-34.0); Mean Corpuscular Hgb Conc 31.5 g/dL (32.0-36.0); Mean Corpuscular Volume 86.9 fL (80.0-100.0); Mean Platelet Volume 11.1 fL (9.4-12.4); Monocytes # (auto) 0.14 K/uL (0.11-0.59); Monocytes % (auto) 1.2 %; Neutrophils # (auto) 10.77 K/uL (1.40-6.50); Neutrophils % (auto) 96.2 %; Platelet Count 198 K/uL (130-400); Polychromasia 1+; RDW Coefficient of Variation 17.9 % (11.5-14.5); RDW Standard Deviation 56.7 fL (36.4-46.3); Red Blood Count 3.58 M/uL (4.70-6.10); White Blood Count 11.21 K/ul (4.8-10.8)
--- NOTE | 2022-09-05 08:56 | Nephrology Consultation ---
Date of Consultation September 05, 2022 Assessment & Plan (1) Chronic renal insufficiency: Creatinine relatively stable at 2.13 mg/dL. Baseline 1.5 mg/dL. Electrolytes acceptable. Non-oliguric. Volume status improving. Medications appropriately dosed for kidney function. Document I/O's. Repeat metabolic profile tomorrow AM. No ACEi due to history of angioedema. No emergent indication for dialysis at this time. (2) Acute and chronic respiratory failure with hypoxia: Furosemide 40 mg PO provided this AM. Noted improvement with 40 mg IV yesterday. Document I/O's and daily weight. Evidence of fluid retention noted. TTE reviewed. Importance of dietary sodium and fluid restriction reviewed. (3) COPD exacerbation: Clinically improving with management. Remains on Cefepime and doxycycline. Baseline O2 requirement 4-6 L. (4) Renal cyst: Updated CT scan reviewed. Evidence of mild chronic hydronephrosis noted. Kidney function improving. No additional evaluation at this time. Will monitor. (5) Anemia: Followed by Dr. Sam in the hematology clinic as an outpatient. Retacrit QOW. Tsat 8, ferritin 248. Will require replacement. History of Present Illness Reason for Consultation: RICHIE,CKD,volume overload Requesting Physician: Amber Hairston MD Attending Physician: Ok Gutierres DO History of Present Illness Mr. Kristopher Louie is a 77 year-old male with CKD III A3. Serum creatinine baseline is ~1.5 mg/dL. Proteinuria quantified on 24 hour collection at 393 mg/d. Urine analysis has been otherwise bland. Urine microscopy acellular. Kristopher has documented chronic CHF as well as elevated pulmonary pressures. Medical history is complicated by a significant smoking history, severe COPD with chronic O2 dependence, longstanding uncontrolled DM II, essential hypertension, WENDY treated with CPAP, anemia with iron deficiency (colonoscopy normal 2 years ago), and chronic HFpEF. RAAS blockade previously held due to a history of hyperkalemia and reported angioedema with ACEi. Kristopher was admitted to [facility] yesterday with acute on chronic hypoxic respiratory failure attributed to fluid retention and possible COPD exacerbation. Hospitalization complicated by hyperglycemia and RICHIE. Kristopher is non-oliguric. He was recently admitted with COPD exacerbation treated with cefdinir and prednisone. Discharged on August 23. Weight was slightly elevated at discharge and Kristopher reported some increased edema in his lower extremities. He returned to the hospital with fluid retention and difficulty breathing. Kristopher was taking furosemide 40 mg QAM and 20 mg in the afternoon at home. He diuresed well overnight with symptomatic improvement following furosemide 40 mg IV. Weight down from 80 to 77.9 kg. I/O negative 854 ml. He was resting comfortably in bed at the time of my assessment this morning. Notable stress at home reported. Kristopher plans to transition to living at [facility] in the near future. Saturating well on 4 L NC at the time of my assessment this morning. Allergies Allergy/AdvReac Type Severity Reaction Status Date / Time ALYSSA Inhibitors Allergy Severe ANAPHYLAXIS Verified 09/04/22 10:18 Home Medications Medication Instructions Recorded Confirmed Type albuterol sulfate 90 mcg/actuation 2 puff inhalation Q4 PRN Wheezing 12/14/17 09/04/22 History aerosol inhaler atorvastatin 20 mg tablet 20 mg PO HS 12/14/17 09/04/22 History metformin 1,000 mg tablet 1,000 mg PO BID 12/14/17 09/04/22 History nitroglycerin 0.4 mg sublingual 0.4 mg sublingual DIRECTED PRN 12/14/17 09/04/22 History tablet Chest Pain Oxygen Home #1 ea 11/13/18 06/17/22 History aspirin 81 mg tablet,delayed 81 mg PO Q OTHER DAY 11/27/18 09/04/22 History release ascorbic acid (vitamin C) 1,000 mg 1 gm PO QAM 06/05/19 09/04/22 History tablet tiotropium bromide 2.5 2 puff inhalation QAM 10/16/20 09/04/22 History mcg/actuation mist for inhalation (Spiriva Respimat) hydrochlorothiazide 25 mg tablet 25 mg PO BID 07/07/21 09/04/22 History pantoprazole 20 mg tablet,delayed 20 mg PO DAILY 07/07/21 09/04/22 History release ferrous sulfate 325 mg (65 mg 325 mg PO Q OTHER DAY 08/11/21 09/04/22 History iron) tablet (Feosol) mecobalamin (vitamin B12) 1,000 1,000 mcg PO DAILY 10/30/21 09/04/22 History mcg chewable tablet diltiazem HCl 240 mg 240 mg PO BID 12/20/21 09/04/22 History capsule,extended release 24 hr magnesium oxide 500 mg capsule 400 mg PO BID 12/27/21 09/04/22 History Portable Oxygen #1 ea 02/17/22 06/17/22 Rx arformoterol 15 mcg/2 mL solution 2 ml inhalation BID #120 mL 05/13/22 09/04/22 Rx for nebulization dapagliflozin 10 mg tablet 10 mg PO QAM 05/13/22 09/04/22 History (Farxiga) semaglutide 14 mg tablet (Rybelsus) 14 mg PO QAM 05/13/22 09/04/22 History budesonide 0.5 mg/2 mL suspension 0.5 mg (2 mL) inhalation BID #120 06/09/22 Rx for nebulization mL furosemide 20 mg tablet 20 mg PO .COMPLEX #270 tabs 07/21/22 09/04/22 Rx magnesium oxide 400 mg PO BID 09/04/22 09/04/22 History sodium zirconium cyclosilicate 5 5 g PO [id number] 09/04/22 09/04/22 History gram oral powder packet (Lokelma) Patient History Medical History (Updated 09/05/22 @ 13:05 by Tato Bui MD) Abnormal CT scan, chest BPH with obstruction/lower urinary tract symptoms CAD (coronary artery disease) CKD (chronic kidney disease) stage 3, GFR 30-59 ml/min COPD (chronic obstructive pulmonary disease) not well controlled per pt > worse this time of year with humidity DM type 2 (diabetes mellitus, type 2) NIDDM Goals of care, counseling/discussion H/O pulmonary emphysema History of arthritis History of cardioversion 2009> SVT History of heart attack pt unaware of this History of nicotine dependence Hyperlipidemia Hypertension Hypomagnesemia Iron deficiency anemia due to chronic blood loss Multiple pulmonary nodules determined by computed tomography of lung On home oxygen therapy 3 LPM continuous WENDY (obstructive sleep apnea) no cpap > O2 continuous Peripheral neuropathy Pneumonia Apr 2019 Pulmonary air trapping Pulmonary air trapping Renal cyst just monitoring Renal cyst SVT (supraventricular tachycardia) dx 2009> diltiazem for this > controlled Surgical History History of bone marrow biopsy July 2019 > checking due to anemia History of cardiac cath 2009 > no stents History of colonoscopy History of esophagogastroduodenoscopy (EGD) History of nasal surgery Status post cataract extraction of both eyes with insertion of intraocular lens Jose teeth extracted Family History Father Diabetes Mother Diabetes Hypertension Other Brain tumor Depression Stroke Social History Smoking Status: Former smoker Tobacco Type: Cigarettes Age Started Using Tobacco: 20; packs per day: 1.0; Second Hand Exposure: No; Do You Dip or Chew Tobacco: No; Tobacco Cessation Education Requested by Patient: No Hx Alcohol Use: Yes Alcohol type: beer Hx Substance Use: No Preferred Language: Divehi Communication Ability: Effective Psychological Stress Evaluator Required: No Beliefs That Will Affect Care: None Current Living Situation: Alone Current Living Situation Comment: home alone Other Information That Helps Us Care for You: No Feels Safe at Home: Yes Safety Concerns: Feels Safe At This Time Assistive Devices: Nebulizer Review of Systems Review of Systems: All systems reviewed & are unremarkable except as noted in HPI & below Cardiovascular: + orthopnea and + edema; no chest pain, no palpitations, no lightheadedness and no syncope Genitourinary: no dysuria, no difficulty urinating, no urinary hesitancy, no urinary incontinence or no nocturia Physical Exam Constitutional: well developed, + thin and + frail appearing; no acute distress Eyes: + anicteric sclerae; no corneal abnormality ENMT: Mouth: no oral mucosal abnormality and oral mucous membranes not dry Neck: normal visual inspection and trachea midline Respiratory: normal respiratory effort Auscultation: lungs clear to auscultation bilaterally and + rales (few basilar) prolonged expiratory Cardiovascular: Rate/Rhythm: regular rate Heart Sounds: normal S1, normal S2 and + murmur Vessels: + JVD Extremities: + pedal edema Musculoskeletal: Extremities: no cyanosis and no clubbing Skin: + turgor decreased; no jaundice Neurologic: Motor/Sensory: no tremor and no asterixis Psychiatric: Orientation: alert and oriented x 3 Results & Data Vital Signs (Past 12 Hours) Vital Signs Temp Pulse Pulse Resp BP Pulse Ox O2 Del Method 09/05/22 07:11 36.5 C 89 20 159/78 H 97 Nasal Cannula 09/05/22 07:02 86 18 93 Nasal Cannula 09/05/22 04:08 36.4 C L 99 H 22 174/75 H 91 Nasal Cannula 09/05/22 02:06 81 16 92 Nasal Cannula 09/05/22 00:00 79 09/05/22 00:01 36.4 C L 76 22 145/70 H 93 Nasal Cannula 09/04/22 22:54 79 18 89 L Nasal Cannula O2 Flow Rate 09/05/22 07:11 4 09/05/22 07:02 4 09/05/22 04:08 4 09/05/22 02:06 4 09/05/22 00:00 09/05/22 00:01 4 09/04/22 22:54 4 Laboratory Results Laboratory Results - last 24 hr 09/04/22 09/04/22 09/04/22 08:00 08:00 08:00 WBC 11.32 H RBC 3.60 L Hgb 10.1 L Hct 32.2 L MCV 89.4 MCH 28.1 MCHC 31.4 L RDW Std Deviation 59.2 H RDW Coeff of Arnoldo 18.5 H Plt Count 220 MPV 11.0 Immature Gran % (Auto) 0.4 Neut % (Auto) 90.4 Lymph % (Auto) 3.7 [place] % (Auto) 4.2 Eos % (Auto) 1.1 Baso % (Auto) 0.2 Neut # (Auto) 10.23 H Lymph # (Auto) 0.42 L [place] # (Auto) 0.48 Eos # (Auto) 0.12 Baso # (Auto) 0.02 Immature Gran # (Auto) 0.05 Polychromasia PT 11.2 INR 1.0 APTT 25.6 PTT Ratio 0.9 ABG pH ABG pCO2 ABG pO2 ABG HCO3 ABG O2 Saturation ABG Base Excess Jose Test Oxygen Given Sodium Potassium Chloride Carbon Dioxide Anion Gap BUN Creatinine Est Cr Clr Drug Dosing Est GFR ( Amer) Est GFR (Non-Af Amer) BUN/Creatinine Ratio Glucose POC Glucose Estimat Average Glucose Hemoglobin A1c Calcium Magnesium Iron TIBC Unsaturated IBC Transferrin % Sat Ferritin Total Bilirubin AST ALT Alkaline Phosphatase Troponin I High Sens B-Natriuretic Peptide Total Protein Albumin Globulin Albumin/Globulin Ratio Vitamin B12 Folate Procalcitonin 1.12 H TSH Urine Color Urine Appearance Urine pH Ur Specific Berino Urine Protein Urine Glucose (UA) Urine Ketones Urine Blood Urine Nitrite Urine Bilirubin Urine Urobilinogen Ur Leukocyte Esterase Urine WBC (Auto) Urine RBC (Auto) U Hyaline Cast (Auto) U Epithel Cells (Auto) Urine Bacteria (Auto) Nasal Screen MRSA (PCR) Adenovirus (PCR) B. pertussis DNA (PCR) B.parapertussis DNA PCR C. pneumoniae DNA (PCR) Coronavirus OC43 (PCR) Coronavirus HKU1 (PCR) Coronavirus 229E (PCR) SARS-CoV-2 (PCR) Coronavirus NL63 (PCR) Human Metapneumovir PCR Influenza Type A (PCR) Influenza Type B (PCR) M. pneumoniae (PCR) Parainfluenza 1 (PCR) Parainfluenza 2 (PCR) Parainfluenza 3 (PCR) Parainfluenza 4 (PCR) RSV (PCR) Entero/Rhino (PCR) 09/04/22 09/04/22 09/04/22 08:25 08:26 10:04 WBC RBC Hgb Hct MCV MCH MCHC RDW Std Deviation RDW Coeff of Arnoldo Plt Count MPV Immature Gran % (Auto) Neut % (Auto) Lymph % (Auto) [place] % (Auto) Eos % (Auto) Baso % (Auto) Neut # (Auto) Lymph # (Auto) [place] # (Auto) Eos # (Auto) Baso # (Auto) Immature Gran # (Auto) Polychromasia PT INR APTT PTT Ratio ABG pH ABG pCO2 ABG pO2 ABG HCO3 ABG O2 Saturation ABG Base Excess Jose Test Oxygen Given Sodium Potassium Chloride Carbon Dioxide Anion Gap BUN Creatinine Est Cr Clr Drug Dosing Est GFR ( Amer) Est GFR (Non-Af Amer) BUN/Creatinine Ratio Glucose POC Glucose Estimat Average Glucose Hemoglobin A1c Calcium Magnesium Iron 17 L TIBC 216 L Unsaturated IBC 199 Transferrin % Sat 8 L Ferritin 248.8 Total Bilirubin AST ALT Alkaline Phosphatase Troponin I High Sens 28.4 H B-Natriuretic Peptide 141 H Total Protein Albumin Globulin Albumin/Globulin Ratio Vitamin B12 Folate Procalcitonin TSH Urine Color Urine Appearance Urine pH Ur Specific Ber[place] Urine Protein Urine Glucose (UA) Urine Ketones Urine Blood Urine Nitrite Urine Bilirubin Urine Urobilinogen Ur Leukocyte Esterase Urine WBC (Auto) Urine RBC (Auto) U Hyaline Cast (Auto) U Epithel Cells (Auto) Urine Bacteria (Auto) Nasal Screen MRSA (PCR) Adenovirus (PCR) Not Detected B. pertussis DNA (PCR) Not Detected B.parapertussis DNA PCR Not Detected C. pneumoniae DNA (PCR) Not Detected Coronavirus OC43 (PCR) Not Detected Coronavirus HKU1 (PCR) Not Detected Coronavirus 229E (PCR) Not Detected SARS-CoV-2 (PCR) Not Detected Coronavirus NL63 (PCR) Not Detected Human Metapneumovir PCR Not Detected Influenza Type A (PCR) Not Detected Influenza Type B (PCR) Not Detected M. pneumoniae (PCR) Not Detected Parainfluenza 1 (PCR) Not Detected Parainfluenza 2 (PCR) Not Detected Parainfluenza 3 (PCR) Not Detected Parainfluenza 4 (PCR) Not Detected RSV (PCR) Not Detected Entero/Rhino (PCR) Not Detected 09/04/22 09/04/22 09/04/22 10:04 10:06 11:40 WBC RBC Hgb Hct MCV MCH MCHC RDW Std Deviation RDW Coeff of Arnoldo Plt Count MPV Immature Gran % (Auto) Neut % (Auto) Lymph % (Auto) [place] % (Auto) Eos % (Auto) Baso % (Auto) Neut # (Auto) Lymph # (Auto) [place] # (Auto) Eos # (Auto) Baso # (Auto) Immature Gran # (Auto) Polychromasia PT INR APTT PTT Ratio ABG pH ABG pCO2 ABG pO2 ABG HCO3 ABG O2 Saturation ABG Base Excess Jose Test Oxygen Given Sodium Potassium Chloride Carbon Dioxide Anion Gap BUN Creatinine Est Cr Clr Drug Dosing Est GFR ( Amer) Est GFR (Non-Af Amer) BUN/Creatinine Ratio Glucose POC Glucose Estimat Average Glucose Hemoglobin A1c Calcium Magnesium Iron TIBC Unsaturated IBC Transferrin % Sat Ferritin Total Bilirubin AST ALT Alkaline Phosphatase Troponin I High Sens B-Natriuretic Peptide Total Protein Albumin Globulin Albumin/Globulin Ratio Vitamin B12 940 H Folate 15.95 Procalcitonin TSH 1.476 Urine Color Yellow Urine Appearance Clear Urine pH 7.0 Ur Specific Berino 1.021 Urine Protein 2+ H Urine Glucose (UA) 3+ H Urine Ketones Negative Urine Blood Negative Urine Nitrite Negative Urine Bilirubin Negative Urine Urobilinogen Negative Ur Leukocyte Esterase Trace H Urine WBC (Auto) 1-5 Urine RBC (Auto) 0-4 U Hyaline Cast (Auto) 0 U Epithel Cells (Auto) 20-30 H Urine Bacteria (Auto) Negative Nasal Screen MRSA (PCR) Adenovirus (PCR) B. pertussis DNA (PCR) B.parapertussis DNA PCR C. pneumoniae DNA (PCR) Coronavirus OC43 (PCR) Coronavirus HKU1 (PCR) Coronavirus 229E (PCR) SARS-CoV-2 (PCR) Coronavirus NL63 (PCR) Human Metapneumovir PCR Influenza Type A (PCR) Influenza Type B (PCR) M. pneumoniae (PCR) Parainfluenza 1 (PCR) Parainfluenza 2 (PCR) Parainfluenza 3 (PCR) Parainfluenza 4 (PCR) RSV (PCR) Entero/Rhino (PCR) 09/04/22 09/04/22 09/04/22 13:06 13:08 14:45 WBC RBC Hgb Hct MCV MCH MCHC RDW Std Deviation RDW Coeff of Arnoldo Plt Count MPV Immature Gran % (Auto) Neut % (Auto) Lymph % (Auto) [place] % (Auto) Eos % (Auto) Baso % (Auto) Neut # (Auto) Lymph # (Auto) [place] # (Auto) Eos # (Auto) Baso # (Auto) Immature Gran # (Auto) Polychromasia PT INR APTT PTT Ratio ABG pH ABG pCO2 ABG pO2 ABG HCO3 ABG O2 Saturation ABG Base Excess Jose Test Oxygen Given Sodium Potassium Chloride Carbon Dioxide Anion Gap BUN Creatinine Est Cr Clr Drug Dosing Est GFR ( Amer) Est GFR (Non-Af Amer) BUN/Creatinine Ratio Glucose POC Glucose 512 H* 507 H* Estimat Average Glucose Hemoglobin A1c Calcium Magnesium Iron TIBC Unsaturated IBC Transferrin % Sat Ferritin Total Bilirubin AST ALT Alkaline Phosphatase Troponin I High Sens B-Natriuretic Peptide Total Protein Albumin Globulin Albumin/Globulin Ratio Vitamin B12 Folate Procalcitonin TSH Urine Color Urine Appearance Urine pH Ur Specific [place] Urine Protein Urine Glucose (UA) Urine Ketones Urine Blood Urine Nitrite Urine Bilirubin Urine Urobilinogen Ur Leukocyte Esterase Urine WBC (Auto) Urine RBC (Auto) U Hyaline Cast (Auto) U Epithel Cells (Auto) Urine Bacteria (Auto) Nasal Screen MRSA (PCR) Negative Adenovirus (PCR) B. pertussis DNA (PCR) B.parapertussis DNA PCR C. pneumoniae DNA (PCR) Coronavirus OC43 (PCR) Coronavirus HKU1 (PCR) Coronavirus 229E (PCR) SARS-CoV-2 (PCR) Coronavirus NL63 (PCR) Human Metapneumovir PCR Influenza Type A (PCR) Influenza Type B (PCR) M. pneumoniae (PCR) Parainfluenza 1 (PCR) Parainfluenza 2 (PCR) Parainfluenza 3 (PCR) Parainfluenza 4 (PCR) RSV (PCR) Entero/Rhino (PCR) 09/04/22 09/04/22 09/04/22 14:50 15:11 16:36 WBC RBC Hgb Hct MCV MCH MCHC RDW Std Deviation RDW Coeff of Arnoldo Plt Count MPV Immature Gran % (Auto) Neut % (Auto) Lymph % (Auto) [place] % (Auto) Eos % (Auto) Baso % (Auto) Neut # (Auto) Lymph # (Auto) [place] # (Auto) Eos # (Auto) Baso # (Auto) Immature Gran # (Auto) Polychromasia PT INR APTT PTT Ratio ABG pH ABG pCO2 ABG pO2 ABG HCO3 ABG O2 Saturation ABG Base Excess Jose Test Oxygen Given Sodium 132 L Potassium 4.7 Chloride 88 L Carbon Dioxide 33 H Anion Gap 11 BUN 71 H Creatinine 2.25 H Est Cr Clr Drug Dosing 28.4 Est GFR ( Amer) 31.9 Est GFR (Non-Af Amer) 27.5 BUN/Creatinine Ratio 31.6 H Glucose 500 H* POC Glucose 464 H* Estimat Average Glucose Hemoglobin A1c Calcium 8.9 Magnesium Iron TIBC Unsaturated IBC Transferrin % Sat Ferritin Total Bilirubin AST ALT Alkaline Phosphatase Troponin I High Sens 22.1 H B-Natriuretic Peptide Total Protein Albumin Globulin Albumin/Globulin Ratio Vitamin B12 Folate Procalcitonin TSH Urine Color Urine Appearance Urine pH Ur Specific [place] Urine Protein Urine Glucose (UA) Urine Ketones Urine Blood Urine Nitrite Urine Bilirubin Urine Urobilinogen Ur Leukocyte Esterase Urine WBC (Auto) Urine RBC (Auto) U Hyaline Cast (Auto) U Epithel Cells (Auto) Urine Bacteria (Auto) Nasal Screen MRSA (PCR) Adenovirus (PCR) B. pertussis DNA (PCR) B.parapertussis DNA PCR C. pneumoniae DNA (PCR) Coronavirus OC43 (PCR) Coronavirus HKU1 (PCR) Coronavirus 229E (PCR) SARS-CoV-2 (PCR) Coronavirus NL63 (PCR) Human Metapneumovir PCR Influenza Type A (PCR) Influenza Type B (PCR) M. pneumoniae (PCR) Parainfluenza 1 (PCR) Parainfluenza 2 (PCR) Parainfluenza 3 (PCR) Parainfluenza 4 (PCR) RSV (PCR) Entero/Rhino (PCR) 09/04/22 09/04/22 09/04/22 16:47 19:01 20:25 WBC RBC Hgb Hct MCV MCH MCHC RDW Std Deviation RDW Coeff of Arnoldo Plt Count MPV Immature Gran % (Auto) Neut % (Auto) Lymph % (Auto) [place] % (Auto) Eos % (Auto) Baso % (Auto) Neut # (Auto) Lymph # (Auto) [place] # (Auto) Eos # (Auto) Baso # (Auto) Immature Gran # (Auto) Polychromasia PT INR APTT PTT Ratio ABG pH ABG pCO2 ABG pO2 ABG HCO3 ABG O2 Saturation ABG Base Excess Jose Test Oxygen Given Sodium Potassium Chloride Carbon Dioxide Anion Gap BUN Creatinine Est Cr Clr Drug Dosing Est GFR ( Amer) Est GFR (Non-Af Amer) BUN/Creatinine Ratio Glucose POC Glucose 375 H* 320 H* 251 H Estimat Average Glucose Hemoglobin A1c Calcium Magnesium Iron TIBC Unsaturated IBC Transferrin % Sat Ferritin Total Bilirubin AST ALT Alkaline Phosphatase Troponin I High Sens B-Natriuretic Peptide Total Protein Albumin Globulin Albumin/Globulin Ratio Vitamin B12 Folate Procalcitonin TSH Urine Color Urine Appearance Urine pH Ur Specific [place] Urine Protein Urine Glucose (UA) Urine Ketones Urine Blood Urine Nitrite Urine Bilirubin Urine Urobilinogen Ur Leukocyte Esterase Urine WBC (Auto) Urine RBC (Auto) U Hyaline Cast (Auto) U Epithel Cells (Auto) Urine Bacteria (Auto) Nasal Screen MRSA (PCR) Adenovirus (PCR) B. pertussis DNA (PCR) B.parapertussis DNA PCR C. pneumoniae DNA (PCR) Coronavirus OC43 (PCR) Coronavirus HKU1 (PCR) Coronavirus 229E (PCR) SARS-CoV-2 (PCR) Coronavirus NL63 (PCR) Human Metapneumovir PCR Influenza Type A (PCR) Influenza Type B (PCR) M. pneumoniae (PCR) Parainfluenza 1 (PCR) Parainfluenza 2 (PCR) Parainfluenza 3 (PCR) Parainfluenza 4 (PCR) RSV (PCR) Entero/Rhino (PCR) 09/04/22 09/04/22 09/04/22 21:00 22:00 23:01 WBC RBC Hgb Hct MCV MCH MCHC RDW Std Deviation RDW Coeff of Arnoldo Plt Count MPV Immature Gran % (Auto) Neut % (Auto) Lymph % (Auto) [place] % (Auto) Eos % (Auto) Baso % (Auto) Neut # (Auto) Lymph # (Auto) [place] # (Auto) Eos # (Auto) Baso # (Auto) Immature Gran # (Auto) Polychromasia PT INR APTT PTT Ratio ABG pH ABG pCO2 ABG pO2 ABG HCO3 ABG O2 Saturation ABG Base Excess Jose Test Oxygen Given Sodium Potassium Chloride Carbon Dioxide Anion Gap BUN Creatinine Est Cr Clr Drug Dosing Est GFR ( Amer) Est GFR (Non-Af Amer) BUN/Creatinine Ratio Glucose POC Glucose 208 H 174 H 150 H Estimat Average Glucose Hemoglobin A1c Calcium Magnesium Iron TIBC Unsaturated IBC Transferrin % Sat Ferritin Total Bilirubin AST ALT Alkaline Phosphatase Troponin I High Sens B-Natriuretic Peptide Total Protein Albumin Globulin Albumin/Globulin Ratio Vitamin B12 Folate Procalcitonin TSH Urine Color Urine Appearance Urine pH Ur Specific [place] Urine Protein Urine Glucose (UA) Urine Ketones Urine Blood Urine Nitrite Urine Bilirubin Urine Urobilinogen Ur Leukocyte Esterase Urine WBC (Auto) Urine RBC (Auto) U Hyaline Cast (Auto) U Epithel Cells (Auto) Urine Bacteria (Auto) Nasal Screen MRSA (PCR) Adenovirus (PCR) B. pertussis DNA (PCR) B.parapertussis DNA PCR C. pneumoniae DNA (PCR) Coronavirus OC43 (PCR) Coronavirus HKU1 (PCR) Coronavirus 229E (PCR) SARS-CoV-2 (PCR) Coronavirus NL63 (PCR) Human Metapneumovir PCR Influenza Type A (PCR) Influenza Type B (PCR) M. pneumoniae (PCR) Parainfluenza 1 (PCR) Parainfluenza 2 (PCR) Parainfluenza 3 (PCR) Parainfluenza 4 (PCR) RSV (PCR) Entero/Rhino (PCR) 09/05/22 09/05/22 09/05/22 00:05 00:40 04:10 WBC RBC Hgb Hct MCV MCH MCHC RDW Std Deviation RDW Coeff of Arnoldo Plt Count MPV Immature Gran % (Auto) Neut % (Auto) Lymph % (Auto) [place] % (Auto) Eos % (Auto) Baso % (Auto) Neut # (Auto) Lymph # (Auto) [place] # (Auto) Eos # (Auto) Baso # (Auto) Immature Gran # (Auto) Polychromasia PT INR APTT PTT Ratio ABG pH ABG pCO2 ABG pO2 ABG HCO3 ABG O2 Saturation ABG Base Excess Jose Test Oxygen Given Sodium Potassium Chloride Carbon Dioxide Anion Gap BUN Creatinine Est Cr Clr Drug Dosing Est GFR ( Amer) Est GFR (Non-Af Amer) BUN/Creatinine Ratio Glucose POC Glucose 109 H 107 H 205 H Estimat Average Glucose Hemoglobin A1c Calcium Magnesium Iron TIBC Unsaturated IBC Transferrin % Sat Ferritin Total Bilirubin AST ALT Alkaline Phosphatase Troponin I High Sens B-Natriuretic Peptide Total Protein Albumin Globulin Albumin/Globulin Ratio Vitamin B12 Folate Procalcitonin TSH Urine Color Urine Appearance Urine pH Ur Specific [place] Urine Protein Urine Glucose (UA) Urine Ketones Urine Blood Urine Nitrite Urine Bilirubin Urine Urobilinogen Ur Leukocyte Esterase Urine WBC (Auto) Urine RBC (Auto) U Hyaline Cast (Auto) U Epithel Cells (Auto) Urine Bacteria (Auto) Nasal Screen MRSA (PCR) Adenovirus (PCR) B. pertussis DNA (PCR) B.parapertussis DNA PCR C. pneumoniae DNA (PCR) Coronavirus OC43 (PCR) Coronavirus HKU1 (PCR) Coronavirus 229E (PCR) SARS-CoV-2 (PCR) Coronavirus NL63 (PCR) Human Metapneumovir PCR Influenza Type A (PCR) Influenza Type B (PCR) M. pneumoniae (PCR) Parainfluenza 1 (PCR) Parainfluenza 2 (PCR) Parainfluenza 3 (PCR) Parainfluenza 4 (PCR) RSV (PCR) Entero/Rhino (PCR) 09/05/22 09/05/22 09/05/22 07:16 07:40 07:42 WBC 11.21 H RBC 3.58 L Hgb 9.8 L Hct 31.1 L MCV 86.9 MCH 27.4 MCHC 31.5 L RDW Std Deviation 56.7 H RDW Coeff of Arnoldo 17.9 H Plt Count 198 MPV 11.1 Immature Gran % (Auto) 0.5 Neut % (Auto) 96.2 Lymph % (Auto) 2.1 [place] % (Auto) 1.2 Eos % (Auto) 0.0 Baso % (Auto) 0.0 Neut # (Auto) 10.77 H Lymph # (Auto) 0.24 L [place] # (Auto) 0.14 Eos # (Auto) 0.00 Baso # (Auto) 0.00 Immature Gran # (Auto) 0.06 Polychromasia 1+ PT INR APTT PTT Ratio ABG pH 7.49 H ABG pCO2 44 ABG pO2 81 ABG HCO3 34 H ABG O2 Saturation 97.5 H ABG Base Excess 9.0 H Jose Test Pos Oxygen Given 4L Sodium Potassium Chloride Carbon Dioxide Anion Gap BUN Creatinine Est Cr Clr Drug Dosing Est GFR ( Amer) Est GFR (Non-Af Amer) BUN/Creatinine Ratio Glucose POC Glucose 253 H Estimat Average Glucose Hemoglobin A1c Calcium Magnesium Iron TIBC Unsaturated IBC Transferrin % Sat Ferritin Total Bilirubin AST ALT Alkaline Phosphatase Troponin I High Sens B-Natriuretic Peptide Total Protein Albumin Globulin Albumin/Globulin Ratio Vitamin B12 Folate Procalcitonin TSH Urine Color Urine Appearance Urine pH Ur Specific [place] Urine Protein Urine Glucose (UA) Urine Ketones Urine Blood Urine Nitrite Urine Bilirubin Urine Urobilinogen Ur Leukocyte Esterase Urine WBC (Auto) Urine RBC (Auto) U Hyaline Cast (Auto) U Epithel Cells (Auto) Urine Bacteria (Auto) Nasal Screen MRSA (PCR) Adenovirus (PCR) B. pertussis DNA (PCR) B.parapertussis DNA PCR C. pneumoniae DNA (PCR) Coronavirus OC43 (PCR) Coronavirus HKU1 (PCR) Coronavirus 229E (PCR) SARS-CoV-2 (PCR) Coronavirus NL63 (PCR) Human Metapneumovir PCR Influenza Type A (PCR) Influenza Type B (PCR) M. pneumoniae (PCR) Parainfluenza 1 (PCR) Parainfluenza 2 (PCR) Parainfluenza 3 (PCR) Parainfluenza 4 (PCR) RSV (PCR) Entero/Rhino (PCR) 09/05/22 09/05/22 07:42 07:42 WBC RBC Hgb Hct MCV MCH MCHC RDW Std Deviation RDW Coeff of Arnoldo Plt Count MPV Immature Gran % (Auto) Neut % (Auto) Lymph % (Auto) [place] % (Auto) Eos % (Auto) Baso % (Auto) Neut # (Auto) Lymph # (Auto) [place] # (Auto) Eos # (Auto) Baso # (Auto) Immature Gran # (Auto) Polychromasia PT INR APTT PTT Ratio ABG pH ABG pCO2 ABG pO2 ABG HCO3 ABG O2 Saturation ABG Base Excess Jose Test Oxygen Given Sodium 135 L Potassium 4.6 Chloride 92 L Carbon Dioxide 33 H Anion Gap 10 BUN 73 H Creatinine 2.13 H Est Cr Clr Drug Dosing 30.0 Est GFR ( Amer) 34.1 Est GFR (Non-Af Amer) 29.4 BUN/Creatinine Ratio 34.3 H Glucose 228 H POC Glucose Estimat Average Glucose 183 Hemoglobin A1c 8.0 H Calcium 8.8 Magnesium 2.7 H Iron TIBC Unsaturated IBC Transferrin % Sat Ferritin Total Bilirubin 0.4 AST 26 ALT 28 Alkaline Phosphatase 55 Troponin I High Sens B-Natriuretic Peptide Total Protein 7.0 Albumin 3.5 Globulin 3.5 Albumin/Globulin Ratio 1.0 Vitamin B12 Folate Procalcitonin TSH Urine Color Urine Appearance Urine pH Ur Specific Berino Urine Protein Urine Glucose (UA) Urine Ketones Urine Blood Urine Nitrite Urine Bilirubin Urine Urobilinogen Ur Leukocyte Esterase Urine WBC (Auto) Urine RBC (Auto) U Hyaline Cast (Auto) U Epithel Cells (Auto) Urine Bacteria (Auto) Nasal Screen MRSA (PCR) Adenovirus (PCR) B. pertussis DNA (PCR) B.parapertussis DNA PCR C. pneumoniae DNA (PCR) Coronavirus OC43 (PCR) Coronavirus HKU1 (PCR) Coronavirus 229E (PCR) SARS-CoV-2 (PCR) Coronavirus NL63 (PCR) Human Metapneumovir PCR Influenza Type A (PCR) Influenza Type B (PCR) M. pneumoniae (PCR) Parainfluenza 1 (PCR) Parainfluenza 2 (PCR) Parainfluenza 3 (PCR) Parainfluenza 4 (PCR) RSV (PCR) Entero/Rhino (PCR) Diagnostic Findings XR chest 1V portable Severe emphysema with chronic interstitial coarsening. Cardiac silhouette is enlarged. Patchy bibasilar and left midlung airspace opacities. Spiculated 5.5 cm lesion of the lingula is better seen on the comparison chest CT. Skin fold projects over the left upper lung. Bones appear grossly intact. IMPRESSION: 1. Patchy bibasilar and left midlung airspace opacities are suggestive of pneumonia, stable from prior. 2. Spiculated lesion of the lingula is better seen on the comparison chest CT. 3. Severe pulmonary emphysema. Transthoracic echocardiogram Normal LV size and systolic function. Moderate LVH. No regional wall motion abnormalities. No significant valvular heart disease. RVSP 53 mmHg. Small pericardial effusion. CT ABDOMEN + PELVIS without Contrast 08/19/22 COMPARISON: CT abdomen and pelvis without contrast, 05/13/22; right upper quadrant ultrasound 05/13/22 FINDINGS: There are new patchy alveolar opacities in the bilateral lung bases, with dependent confluent opacities in both lower lobes. Trace bilateral effusions are suggested. There is stable enlargement of the liver. There is gallbladder sludge without calcified stone, cholecystitis, or biliary dilatation. Spleen, adrenal glands, and pancreas are unremarkable. Left kidney demonstrates a stable small simple cortical cyst as well as a stable small hemorrhagic cyst; no further follow-up is required. There are no left-sided renal stones. There is no left-sided hydroureteronephrosis. There is a stable right kidney lower pole lesion measuring 6.5 cm and 32 HU, previously demonstrated to represent a cyst on ultrasound 05/13/22. This produces mild hydronephrosis of the right kidney due to UPJ obstruction, unchanged from prior exam. No right kidney stones are visualized. In addition, there is a stable subcentimeter hemorrhagic cyst in the anterior right kidney. There is atherosclerosis without aortic aneurysm. There is no adenopathy. There is no free fluid or free air. Prostate is enlarged and contains parenchymal calcifications. Urinary bladder is normal. Appendix is normal. There is no bowel obstruction or inflammation. There are scattered diverticula. There is an old fracture posterior right rib 11. There are chronic compression fractures at L1 and L2. There is no acute fracture or dislocation. Degenerative changes involve the spine and left greater than right hips. IMPRESSION: 1. Multifocal pneumonia at the lung bases, new from prior. 2. Stable mild hydronephrosis of the right kidney due to UPJ obstruction caused by a 6.5 cm cyst. ECG Rate (beats per minute): 100 Rhythm: normal sinus Findings: no other PG Care Time/CCT Total # of Minutes Spent Total Time Spent with Patient: Total time spent is greater than 50% in coordination of care (as documented) at patient's floor/unit and/or counseling patient: Coding Level of Care Code 07021 IN/OBS CONSULT LVL 4,60M Diagnoses Chronic renal insufficiency N18.9 Acute and chronic respiratory failure with hypoxia J96.21 COPD exacerbation J44.1 Renal cyst N28.1 Anemia D64.9 Anemia type: unspecified type (5) Anemia Anemia type: unspecified type Qualified Code(s): D64.9 - Anemia, unspecified
[2022-09-05] MEDS ORDERED: LANTUS PER UNIT CHARGE SC SCH (09:00)
--- NOTE | 2022-09-05 09:05 | Cardiology Consultation ---
Date of Consultation September 05, 2022 Assessment & Plan (1) Acute and chronic respiratory failure with hypoxia: (2) Pulmonary hypertension: (3) Chronic diastolic CHF (congestive heart failure): (4) Elevated troponin: (5) CKD (chronic kidney disease): (6) Anemia, iron deficiency: (7) Hypertension: Plan Mr. Louie's hypoxic respiratory failure is primarily pulmonary in nature. He does have chronic diastolic and right heart failure due to pulmonary hypertension. His echo this admission does show moderate pulmonary hypertension with RVSP of 50 mmHg which is not significantly different than his echo in July of last year. His bnp was only marginally elevated on admission at 141. He is not exhibiting pulmonary edema on his chest Xray and his lower extremity edema is around his baseline. I would not be overly aggressive with diuresis, his home furosemide regimen is 60 mg daily. His I&O is negative today. His RICHIE is more likely secondary intravascular depletion than overload. His high sensitivity troponin was marginally elevated peaking at 29 in the setting of significant hypoxia with sats of 78% on arrival to the ED. His echo does not show any new wall motion abnormalities. He has not had any anginal symptoms. Given his hypoxia and iron deficient anemia, his troponin is likely secondary to demand ischemia. He should continue with his usual CAD regimen of aspirin and statin. He cannot tolerate ALYSSA inhibitors due to history of angeioedema and developed hyperkalemia on ARBs. His blood pressure is hypertensive but acceptable in the hospital setting. He has a history of SVT but no episodes this admission. He has been maintaining sinus rhythm on telemetry. History of Present Illness Reason for Consultation: Shortness of breath, diastolic CHF Requesting Physician: Violetta Pascal PA-C Attending Physician: Ok Gutierres DO History of Present Illness Mr. Louie presented to the ED yesterday for worsening shortness of breath. He was recently discharged on 08/23/22 for pneumonia and COPD exacerbation. On admission he was given furosemide IV for suspected acute on chronic diastolic and right sided CHF. His high sensitivity troponin was mildly elevated but he has not had any anginal symptoms. Today Mr. Louie feels he is breathing a bit easier. He is not having any chest pain. No palpitations. He has mild lower extremity edema. No events on the monitor, maintaining SR. Allergies Allergy/AdvReac Type Severity Reaction Status Date / Time ALYSSA Inhibitors Allergy Severe ANAPHYLAXIS Verified 09/04/22 10:18 Home Medications Medication Instructions Recorded Confirmed Type albuterol sulfate 90 mcg/actuation 2 puff inhalation Q4 PRN Wheezing 12/14/17 09/04/22 History aerosol inhaler atorvastatin 20 mg tablet 20 mg PO HS 12/14/17 09/04/22 History metformin 1,000 mg tablet 1,000 mg PO BID 12/14/17 09/04/22 History nitroglycerin 0.4 mg sublingual 0.4 mg sublingual DIRECTED PRN 12/14/17 09/04/22 History tablet Chest Pain Oxygen Home #1 ea 11/13/18 06/17/22 History aspirin 81 mg tablet,delayed 81 mg PO Q OTHER DAY 11/27/18 09/04/22 History release ascorbic acid (vitamin C) 1,000 mg 1 gm PO QAM 06/05/19 09/04/22 History tablet tiotropium bromide 2.5 2 puff inhalation QAM 10/16/20 09/04/22 History mcg/actuation mist for inhalation (Spiriva Respimat) hydrochlorothiazide 25 mg tablet 25 mg PO BID 07/07/21 09/04/22 History pantoprazole 20 mg tablet,delayed 20 mg PO DAILY 07/07/21 09/04/22 History release ferrous sulfate 325 mg (65 mg 325 mg PO Q OTHER DAY 08/11/21 09/04/22 History iron) tablet (Feosol) mecobalamin (vitamin B12) 1,000 1,000 mcg PO DAILY 10/30/21 09/04/22 History mcg chewable tablet diltiazem HCl 240 mg 240 mg PO BID 12/20/21 09/04/22 History capsule,extended release 24 hr magnesium oxide 500 mg capsule 400 mg PO BID 12/27/21 09/04/22 History Portable Oxygen #1 ea 02/17/22 06/17/22 Rx arformoterol 15 mcg/2 mL solution 2 ml inhalation BID #120 mL 05/13/22 09/04/22 Rx for nebulization dapagliflozin 10 mg tablet 10 mg PO QAM 05/13/22 09/04/22 History (Farxiga) semaglutide 14 mg tablet (Rybelsus) 14 mg PO QAM 05/13/22 09/04/22 History budesonide 0.5 mg/2 mL suspension 0.5 mg (2 mL) inhalation BID #120 06/09/22 09/04/22 Rx for nebulization mL furosemide 20 mg tablet 20 mg PO .COMPLEX #270 tabs 07/21/22 09/04/22 Rx magnesium oxide 400 mg PO BID 09/04/22 09/04/22 History sodium zirconium cyclosilicate 5 5 g PO 3XWK 09/04/22 09/04/22 History gram oral powder packet (Lokelma) Patient History Medical History Abnormal CT scan, chest BPH with obstruction/lower urinary tract symptoms CAD (coronary artery disease) CKD (chronic kidney disease) stage 3, GFR 30-59 ml/min COPD (chronic obstructive pulmonary disease) not well controlled per pt > worse this time of year with humidity DM type 2 (diabetes mellitus, type 2) NIDDM H/O pulmonary emphysema History of arthritis History of cardioversion 2009> SVT History of heart attack pt unaware of this History of nicotine dependence Hyperlipidemia Hypertension Hypomagnesemia Iron deficiency anemia due to chronic blood loss Multiple pulmonary nodules determined by computed tomography of lung On home oxygen therapy 3 LPM continuous WENDY (obstructive sleep apnea) no cpap > O2 continuous Peripheral neuropathy Pneumonia Apr 2019 Pulmonary air trapping Pulmonary air trapping Renal cyst just monitoring Renal cyst SVT (supraventricular tachycardia) dx 2009> diltiazem for this > controlled Surgical History History of bone marrow biopsy July 2019 > checking due to anemia History of cardiac cath 2009 > no stents History of colonoscopy History of esophagogastroduodenoscopy (EGD) History of nasal surgery Status post cataract extraction of both eyes with insertion of intraocular lens Bruning teeth extracted Family History Father Diabetes Mother Diabetes Hypertension Other Brain tumor Depression Stroke Social History Smoking Status: Former smoker Tobacco Type: Cigarettes Age Started Using Tobacco: 20; packs per day: 1.0; Second Hand Exposure: No; Do You Dip or Chew Tobacco: No; Tobacco Cessation Education Requested by Patient: No Hx Alcohol Use: Yes Alcohol type: beer Hx Substance Use: No Preferred Language: Sinhala Communication Ability: Effective Research Management Associate Required: No Beliefs That Will Affect Care: None Current Living Situation: Alone Current Living Situation Comment: home alone Other Information That Helps Us Care for You: No Feels Safe at Home: Yes Safety Concerns: Feels Safe At This Time Assistive Devices: Oxygen - Continuous Review of Systems Review of Systems: All systems reviewed & are unremarkable except as noted in HPI & below Physical Exam Constitutional: WD/WN, vitals as above Respiratory: normal respiratory effort, lungs clear to auscultation Cardiovascular: Rate/Rhythm: regular rate and regular rhythm Heart Sounds: no murmur Extremities: + edema (mild bilateral pitting ) Skin: no rashes, warm and dry Neurologic: moves all extremities and awake Psychiatric: A+Ox3, euthymic affect Results & Data Vital Signs (Past 12 Hours) Vital Signs Temp Pulse Pulse Resp BP Pulse Ox O2 Del Method 09/05/22 07:11 36.5 C 89 20 159/78 H 97 Nasal Cannula 09/05/22 07:02 86 18 93 Nasal Cannula 09/05/22 04:08 36.4 C L 99 H 22 174/75 H 91 Nasal Cannula 09/05/22 02:06 81 16 92 Nasal Cannula 09/05/22 00:00 79 09/05/22 00:01 36.4 C L 76 22 145/70 H 93 Nasal Cannula 09/04/22 22:54 79 18 89 L Nasal Cannula O2 Flow Rate 09/05/22 07:11 4 09/05/22 07:02 4 09/05/22 04:08 4 09/05/22 02:06 4 09/05/22 00:00 09/05/22 00:01 4 09/04/22 22:54 4 (7) Hypertension Hypertension type: essential hypertension Qualified Code(s): I10 - Essential (primary) hypertension
[2022-09-05] MEDS: CEFEPIME 2,000 MG in SYRINGE 0 ML IV SCH (09:26)
--- NOTE | 2022-09-05 11:25 | Pharmacy Report ---
Pharmacy Glycemic Short Note 2 - Date of Service September 05, 2022 - Glycemic Short BSG Results (Last 24 hours): 09/04/22 09/04/22 09/04/22 13:06 13:08 14:50 Glucose 500 H* POC Glucose 512 H* 507 H* 09/04/22 09/04/22 09/04/22 15:11 16:47 19:01 Glucose POC Glucose 464 H* 375 H* 320 H* 09/04/22 09/04/22 09/04/22 20:25 21:00 22:00 Glucose POC Glucose 251 H 208 H 174 H 09/04/22 09/05/22 09/05/22 23:01 00:05 00:40 Glucose POC Glucose 150 H 109 H 107 H 09/05/22 09/05/22 09/05/22 04:10 07:16 07:42 Glucose 228 H POC Glucose 205 H 253 H OUTPATIENT ANTIDIABETIC REGIMEN: * Farxiga 10 mg PO daily * Metformin 1 gm PO BID * Semaglutide 14 mg PO QAM HbA1c = 6.8% on 08/20/22 ASSESSMENT: 09/05 * Patient received total of 125 units of insulin in addition to insulin drip yesterday. Of which, 45 units were basal insulin * Fasting BSG 228 mg/dL - anticipate improvement with blood sugars today as steroids likely wearing off now, no further steroids ordered. Will give 20 units x 1 of basal this AM and have scale for HS 0-10 units * Plan to loosen novolog parameters later today as steroids wear off 09/04 * 77 y/o M admitted for respiratory failure, CHF vs COPD exacerbation. Patient was on three different oral anti-diabetic meds at home for Type 2 diabetes. He also has history of chronic kidney disease. * Received IV Solu medrol 125 mg in ED today AM. BSG on admission was 423 mg/dl. This afternoon BSG trended up to 512 mg/dl most likely steroid induced. * Pharmacy consulted this afternoon after hospitalist ordered 10 units of IV regular insulin. Patient is known to glycemic service from recent admissions. * Novolog ordered based on stress of 3 and tighter carb ratio as his last admission in August 2022. * Basal dose of 20 units x1 given this afternoon and a dose scale added for HS based on BSG. PLAN FOR INPATIENT GLYCEMIC CONTROL: * Hold outpatient oral diabetes medications * Basal insulin * Lantus 20 units x 1 this AM * Lantus 0-10 units HS * Bolus insulin * NovoLog per scale ACHS or Q6hrs while NPO * Goal Range: Low 110 mg/dL - High 140 mg/dL * Correction Factor: 12 mg/dL/unit * Nutritional / Prandial insulin per carb ratio of 1 unit per 4 grams CHO consumed
[2022-09-05] MEDS: FUROSEMIDE 40 MG TAB PO SCH (12:19)
--- NOTE | 2022-09-05 13:07 | Pulmonology Progress Note ---
Date of Service September 05, 2022 Assessment & Plan (1) Acute and chronic respiratory failure with hypoxia: Plan: His oxygen requirements are essentially back to baseline. I suspect some intermittent mucous plugging. Please discharge the patient with a flutter valve and hypertonic saline when appropriate. He is without evidence of bronchospasm and I do not think that systemic corticosteroids are indicated at this time. Continue to wean O2 sats to maintain saturation of 88 to 92%. (2) WENDY (obstructive sleep apnea): Plan: Continue CPAP with sleep. (3) Abnormal CT scan, chest: Plan: We will consider navigational bronchoscopy later this week depending on overall clinical picture. Currently has RICHIE and hyponatremia. If this improves, may consider bronc Monday or . He understands that the left upper lobe spiculated mass may represent malignancy. (4) Goals of care, counseling/discussion: Plan: He has end-stage COPD and probable lung cancer. He also has CKD stage III which is acutely gotten worse this hospitalization. I engaged with him regarding CODE STATUS discussion and palliative care. He would like to remain a full code at this time. I have consulted palliative care and the patient is aware. I also discussed with Dr. Beltran who is the palliative care physician on-call. Plan Thank you for allowing me to participate in the care of the patient. We will continue to follow along with you. Admission and Anticipated Discharge Date Admission Date: September 04, 2022 Subjective Patient notes that his shortness of breath is improved. He denies any significant chest pain. No fevers, chills or night sweats. Review of Systems Review of Systems: All systems reviewed & are unremarkable except as noted in HPI & below Physical Exam Constitutional: Elderly-appearing male no apparent distress. Eyes: PERRL, conjunctivae normal, anicteric sclerae Respiratory: Lung sounds diminished bilaterally. Prolonged phase of exhalation. Mild crackles bilaterally. Cardiovascular: Normal rate and rhythm. Trace edema in the lower extremities. Gastrointestinal (Abdomen): normal bowel sounds, soft, nontender, no hepatosplenomegaly Neurologic: CN's II-XI intact bilaterally Psychiatric: A+Ox3, euthymic affect Results & Data Results & Data Vital Signs (Past 12 Hours) Vital Signs Temp Pulse Resp BP Pulse Ox Pulse Ox O2 Del Method 09/05/22 11:26 36.5 C 86 20 175/58 H 96 Nasal Cannula 09/05/22 10:06 87 18 91 Nasal Cannula 09/05/22 08:07 93 09/05/22 08:00 Nasal Cannula 09/05/22 07:11 36.5 C 89 20 159/78 H 97 Nasal Cannula 09/05/22 07:02 86 18 93 Nasal Cannula 09/05/22 04:08 36.4 C L 99 H 22 174/75 H 91 Nasal Cannula 09/05/22 02:06 81 16 92 Nasal Cannula O2 Del Method O2 Flow Rate 09/05/22 11:26 4 09/05/22 10:06 4 09/05/22 08:07 Nasal Cannula 09/05/22 08:00 4 09/05/22 07:11 4 09/05/22 07:02 4 09/05/22 04:08 4 09/05/22 02:06 4 PG Care Time/CCT Total # of Minutes Spent Total Time Spent with Patient: Total time spent is greater than 50% in coordination of care (as documented) at patient's floor/unit and/or counseling patient: Coding Level of Care Code 20180 SUB INP/OBS CARE 3/50MIN Diagnoses Acute and chronic respiratory failure with hypoxia J96.21 WENDY (obstructive sleep apnea) G47.[address] scan, chest R93.89 Goals of care, counseling/discussion Z71.89
--- NOTE | 2022-09-05 15:24 | Palliative Care Consultation ---
Date of Consultation September 05, 2022 Assessment & Plan (1) Palliative care encounter: Mr. Louie tells me that he has never really thought about what he would want for his care if he were seriously ill. He understands that with his advanced COPD alone, his prognosis is poor and he has seen a decline in his functional status. His daughter, Carmen, notes that this is his 4th hospitalization since May. He also understands that his frailty would make procedures and treatments for cancer difficult moving forward. We talked about whether he felt that he needed a definitive diagnosis to make a decision regarding treatment and he told me that he would like to know. We also discussed his code status and the statistical likelihood that he would have a poor outcome with CPR and intubation. He understands this but wants to consider it and speak with his daughter. His daughter is an oncology nurse and he trusts her opinion as he makes difficult decisions about his care. He asked me to call her and discuss the things that I discussed with him. I did speak with Carmen who tells me that her father has never really talked much about his healthcare and that he has not wanted to talk about his mortality. She is going to speak with him and with her brother about these decisions in more detail. I offered to have a family meeting to discuss further. I will touch base with Maranda tomorrow after they have a chance to talk. Case discussed with Dr. Bui. History of Present Illness Reason for Consultation: goals of care Requesting Physician: Dr. Bui Attending Physician: Ok Gutierres DO History of Present Illness 77 yo gentleman with chronic hypoxic respiratory failure and advanced COPD. He was hospitalized two weeks ago with pneumonia and COPD exacerbation. He completed antibiotic and steroid course after discharge but the day prior to admission noted that his oxygen level dropped into the 70s with activity at home, while on 4L. He was admitted with acute on chronic hypoxic respiratory failure. He was noted to have bilateral opacities consistent with multifocal pneumonia on CT as well as a 3.7 x 4.3 x 5.4 cm spiculated mass in the left upper lobe, suspicious for malignancy. He did have a video fluoroscopy study with no evidence of aspiration. He reports that his breathing feels better but is concerned about the mass and is trying to decide how to proceed. He had been independent at home but has had functional decline and is planning to move to an assisted living apartment at [facility] in the near future. Allergies Allergy/AdvReac Type Severity Reaction Status Date / Time ALYSSA Inhibitors Allergy Severe ANAPHYLAXIS Verified 09/04/22 10:18 Home Medications Medication Instructions Recorded Confirmed Type albuterol sulfate 90 mcg/actuation 2 puff inhalation Q4 PRN Wheezing 12/14/17 09/04/22 History aerosol inhaler atorvastatin 20 mg tablet 20 mg PO HS 12/14/17 09/04/22 History metformin 1,000 mg tablet 1,000 mg PO BID 12/14/17 09/04/22 History nitroglycerin 0.4 mg sublingual 0.4 mg sublingual DIRECTED PRN 12/14/17 09/04/22 History tablet Chest Pain Oxygen Home #1 ea 11/13/18 06/17/22 History aspirin 81 mg tablet,delayed 81 mg PO Q OTHER DAY 11/27/18 09/04/22 History release ascorbic acid (vitamin C) 1,000 mg 1 gm PO QAM 06/05/19 09/04/22 History tablet tiotropium bromide 2.5 2 puff inhalation QAM 10/16/20 09/04/22 History mcg/actuation mist for inhalation (Spiriva Respimat) hydrochlorothiazide 25 mg tablet 25 mg PO BID 07/07/21 09/04/22 History pantoprazole 20 mg tablet,delayed 20 mg PO DAILY 07/07/21 09/04/22 History release ferrous sulfate 325 mg (65 mg 325 mg PO Q OTHER DAY 08/11/21 09/04/22 History iron) tablet (Feosol) mecobalamin (vitamin B12) 1,000 1,000 mcg PO DAILY 10/30/21 09/04/22 History mcg chewable tablet diltiazem HCl 240 mg 240 mg PO BID 12/20/21 09/04/22 History capsule,extended release 24 hr magnesium oxide 500 mg capsule 400 mg PO BID 12/27/21 09/04/22 History Portable Oxygen #1 ea 02/17/22 06/17/22 Rx arformoterol 15 mcg/2 mL solution 2 ml inhalation BID #120 mL 05/13/22 09/04/22 Rx for nebulization dapagliflozin 10 mg tablet 10 mg PO QAM 05/13/22 09/04/22 History (Farxiga) semaglutide 14 mg tablet (Rybelsus) 14 mg PO QAM 05/13/22 09/04/22 History budesonide 0.5 mg/2 mL suspension 0.5 mg (2 mL) inhalation BID #120 06/09/22 09/04/22 Rx for nebulization mL furosemide 20 mg tablet 20 mg PO .COMPLEX #270 tabs 07/21/22 09/04/22 Rx magnesium oxide 400 mg PO BID 09/04/22 09/04/22 History sodium zirconium cyclosilicate 5 5 g PO 3XWK 09/04/22 09/04/22 History gram oral powder packet (Lokelma) Patient History Medical History Abnormal CT scan, chest BPH with obstruction/lower urinary tract symptoms CAD (coronary artery disease) CKD (chronic kidney disease) stage 3, GFR 30-59 ml/min COPD (chronic obstructive pulmonary disease) not well controlled per pt > worse this time of year with humidity DM type 2 (diabetes mellitus, type 2) NIDDM Goals of care, counseling/discussion H/O pulmonary emphysema History of arthritis History of cardioversion 2009> SVT History of heart attack pt unaware of this History of nicotine dependence Hyperlipidemia Hypertension Hypomagnesemia Iron deficiency anemia due to chronic blood loss Multiple pulmonary nodules determined by computed tomography of lung On home oxygen therapy 3 LPM continuous WENDY (obstructive sleep apnea) no cpap > O2 continuous Peripheral neuropathy Pneumonia Apr 2019 Pulmonary air trapping Pulmonary air trapping Renal cyst just monitoring Renal cyst SVT (supraventricular tachycardia) dx 2009> diltiazem for this > controlled Surgical History History of bone marrow biopsy July 2019 > checking due to anemia History of cardiac cath 2009 > no stents History of colonoscopy History of esophagogastroduodenoscopy (EGD) History of nasal surgery Status post cataract extraction of both eyes with insertion of intraocular lens [place] teeth extracted Family History Father Diabetes Mother Diabetes Hypertension Other Brain tumor Depression Stroke Social History Smoking Status: Former smoker Tobacco Type: Cigarettes Age Started Using Tobacco: 20; packs per day: 1.0; Second Hand Exposure: No; Do You Dip or Chew Tobacco: No; Tobacco Cessation Education Requested by Patient: No Hx Alcohol Use: Yes Alcohol type: beer Hx Substance Use: No Preferred Language: French Communication Ability: Effective Med Care Manager Required: No Beliefs That Will Affect Care: None Current Living Situation: Alone Current Living Situation Comment: home alone Other Information That Helps Us Care for You: No Feels Safe at Home: Yes Safety Concerns: Feels Safe At This Time Assistive Devices: Nebulizer Review of Systems Review of Systems: ESAS Pain 0/3 Dyspnea 1/3 Nausea 0/3 Drowsiness 0/3 Physical Exam Constitutional: no acute distress Respiratory: normal respiratory effort; no labored breathing Skin: warm and dry Neurologic: no focal motor deficits Speech / Cognition: normal cognition Genitourinary: continent Results & Data Vital Signs (Past 12 Hours) Vital Signs Temp Pulse Resp BP Pulse Ox Pulse Ox O2 Del Method 09/05/22 15:01 97.3 F L 86 19 170/80 H 96 Nasal Cannula 09/05/22 11:26 97.7 F 86 20 175/58 H 96 Nasal Cannula 09/05/22 10:06 87 18 91 Nasal Cannula 09/05/22 08:07 93 09/05/22 08:00 Nasal Cannula 09/05/22 07:11 97.7 F 89 20 159/78 H 97 Nasal Cannula 09/05/22 07:02 86 18 93 Nasal Cannula 09/05/22 04:08 97.5 F L 99 H 22 174/75 H 91 Nasal Cannula O2 Del Method O2 Flow Rate 09/05/22 15:01 4 09/05/22 11:26 4 09/05/22 10:06 4 09/05/22 08:07 Nasal Cannula 09/05/22 08:00 4 09/05/22 07:11 4 09/05/22 07:02 4 09/05/22 04:08 4 PG Care Time/CCT Total # of Minutes Spent Total Time Spent: 75 Total Time Spent with Patient: Total time spent is greater than 50% in coordination of care (as documented) at patient's floor/unit and/or counseling patient: goals of care, code status, patient and family education and support Coding Level of Care Code 17703 INT INP/OBS CARE 3/75MIN Diagnoses Palliative care encounter Z51.5
--- NOTE | 2022-09-05 15:48 | Billing Data ---
Date of Service September 05, 2022 Coding Level of Care Code 13234 SUB INP/OBS CARE MIN
[2022-09-05] MEDS: LANTUS PER UNIT CHARGE SC SCH (21:13)
[2022-09-05] MEDS: ATORVASTATIN 20 MG TAB PO SCH (21:17)
--- NOTE | 2022-09-05 22:25 | Electrocardiogram Report ---
Test Reason : Blood Pressure : / mmHG Vent. Rate : 100 BPM Atrial Rate : 100 BPM P-R Int : 158 ms QRS Dur : 094 ms QT Int : 348 ms P-R-T Axes : 068 089 066 degrees QTc Int : 448 ms Normal sinus rhythm Normal ECG When compared with ECG of 20-AUG-2022 18:21, Premature ventricular complexes are no longer Present Non-specific change in ST segment in Anterior leads Nonspecific T wave abnormality no longer evident in Anterior leads Confirmed by Du Nair ([id number]) on 09/05/2022 10:24:31 PM Referred By: REFERRED SELF Confirmed By:Du Nair
[2022-09-06] MEDS ORDERED: INSULIN ASPART PER UNIT CHARGE SC SCH
[2022-09-06] MEDS: ALBUT/IPRATROP 3MG/0.5MG NEB 3 ML VIAL NEB SCH ×6 (02:02→22:12)
[2022-09-06] MEDS: SODIUM CHLOR 7% 4 ML NEB NEB SCH ×2 (07:10→19:19)
[2022-09-06] MEDS: FORMOTEROL 20 MCG/2 ML VIAL INH SCH ×2 (07:10→19:19)
[2022-09-06] MEDS: BUDESONIDE 0.5 MG/2 ML VIAL (PULMICORT) INH SCH ×2 (07:10→19:19)
[2022-09-06 08:16] LABS: Hematocrit (blood only) 30.2 % (42.0-52.0); Hemoglobin 9.4 g/dl (14.0-18.0); Mean Corpuscular Hemoglobin 27.2 pg (25.0-34.0); Mean Corpuscular Hgb Conc 31.1 g/dL (32.0-36.0); Mean Corpuscular Volume 87.5 fL (80.0-100.0); Mean Platelet Volume 10.3 fL (9.4-12.4); Platelet Count 203 K/uL (130-400); RDW Coefficient of Variation 17.9 % (11.5-14.5); RDW Standard Deviation 56.9 fL (36.4-46.3); Red Blood Count 3.45 M/uL (4.70-6.10); White Blood Count 12.84 K/ul (4.8-10.8)
[2022-09-06 08:39] LABS: Albumin Globulin Ratio 1.1 (0.9-2); Albumin Level 3.2 gm/dl (3.4-5.0); BUN Creatinine Ratio 41.9 (10-20); Basophils # (auto) 0.01 K/uL (0-0.2); Basophils % (auto) 0.1 %; Bilirubin,Total 0.3 mg/dl (0.2-1.0); Calcium 8.5 mg/dl (8.6-10.3); Creatinine Clr Calc Pharmacy 37.1 ml/min; Eosinophils # (auto) 0.04 K/uL (0-0.50); Eosinophils % (auto) 0.3 %; Est GFR (African American) 44.1 ml/min; Immature Granulocytes # (auto) 0.06 K/uL (0.01-0.20); Immature Granulocytes % (auto) 0.5 %; Lymphocytes # (auto) 0.43 K/uL (1.2-3.4); Lymphocytes % (auto) 3.3 %; Magnesium 2.5 mg/dl (1.7-2.4); Monocytes # (auto) 0.44 K/uL (0.11-0.59); Monocytes % (auto) 3.4 %; Neutrophils # (auto) 11.86 K/uL (1.40-6.50); Neutrophils % (auto) 92.4 %; Ovalocytes 1+; Polychromasia 1+; Total Protein 6.2 gm/dl (6.0-8.3)
[2022-09-06] MEDS: INSULIN ASPART PER UNIT CHARGE SC SCH ×4 (08:56→20:13)
[2022-09-06] MEDS: FUROSEMIDE 40 MG TAB PO SCH (08:57)
[2022-09-06] MEDS: dilTIAZem HCL 240 MG CAPCR PO SCH ×2 (08:57→21:45)
[2022-09-06] MEDS: ASCORBIC ACID 500 MG TAB PO SCH (08:57)
[2022-09-06] MEDS: AZITHROMYCIN 250 MG TAB PO SCH (08:57)
[2022-09-06] MEDS: guaiFENesin 600 MG TABCR PO SCH ×2 (08:58→21:46)
[2022-09-06] MEDS: HEPARIN SOD 5,000 UNIT/0.5 ML VIAL SQ SCH ×2 (08:58→21:47)
[2022-09-06] MEDS: UMECLIDINIUM BROMIDE 62.5MCG/BLISTER 7 PUFFS/INHALER INH SCH (08:59)
[2022-09-06] MEDS: MAGNESIUM OXIDE 400 MG TAB PO SCH ×2 (08:59→21:47)
[2022-09-06] MEDS: PANTOprazole 40 MG TAB PO SCH (08:59)
[2022-09-06] MEDS: SODIUM ZIRCONIUM CYCLOSILICATE 10 GM PACKET PO SCH (08:59)
[2022-09-06] MEDS ORDERED: LANTUS PER UNIT CHARGE SC SCH (09:00)
--- NOTE | 2022-09-06 09:10 | Hospitalist Progress Note ---
Date of Service September 06, 2022 Assessment & Plan (1) Acute and chronic respiratory failure with hypoxia: (2) COPD, severe: (3) CKD (chronic kidney disease) stage 3, GFR 30-59 ml/min: (4) DM type 2 (diabetes mellitus, type 2): (5) WENDY (obstructive sleep apnea): (6) Pneumonia: (7) CROWE (dyspnea on exertion): (8) Chronic renal insufficiency: (9) Anemia: (10) Coronary artery disease: (11) Mass of upper lobe of left lung: Gail Summers is a 77 y/o M with PMHx of COPD with chronic hypoxemic respiratory failure (4L O2 requirement), WENDY (not using CPAP), CKD III, CAD, SVT, DM II, HTN, HLD and anemia who presented to the ED on 09/04/22 with SOB. He was discharged on 08/23/22 on Cefdinir and predinose taper. In 05/2022 he had ESBL bacteremia secondary to suspected cholangitis, which was sensitive to Ertapenem/Augmentin. #Acute on chronic respiratory failure with hypoxia #Dyspnea of exertion #COPD Gold E, class IV, on 4L oxygen at home VBG on admission: alkalosis, hypercapnea ABG: metabolic alkalosis (pH 7.49, HCO3 34, PaO2 97.5) Mild WBC elevation, procalcitonin 1.12, UA noninfectious, BioFire negative. Sputum/blood cx no growth aside from normal elijah. Nasal MRSA negative. Appreciate pulm input: COPD is end-stage. Atypical coverage for 5 total days, hypertonic saline nebulized, flutter valve, Brovana/Formoterol + Incruse Ellipta inhaler on a daily basis, BiPAP 03/10 nightly and PRN. Considering navigational bronchoscopy later this week. Azithromycin day three (5 day course to end 09/08); doxycycline Consider long-term azithromycin regimen as outpatient (250mg 3 days/week) CXR: similar to 08/19/22, patchy bibasilar and left midlung airspace opacities suggest pneumonia #Acute on chronic diastolic CHF BNP mildly elevated at 141 on admission. Bilateral pitting edema in the LE is around his baseline. Echo 09/05/22: EF 60-65%, no wall motion abnormalities, moderate concentric LVH. Mildly dilated RV, RA. Moderate pulmonary HTN (RVSP 53mmHg, ~stable from 40- 50mmHg on 07/27/21). Very small pericardial effusion along RV. Lasix 40 mg PO qAM, current output -1069mL Home meds: Lasix 60mg (40mg in the AM, 20mg PO in the PM) Monitor kidney function, I/Os, weights *anaphylactic reaction to ALYSSA-inhibitors Cardio input appreciated - do not suspect cardiac etiology Discussed dietary salt consumption #Mass of upper lobe of left lung CT 08/19/22: parahilar left upper lobe measuring 3.7 x 4.3 x 5.4 cm, spiculated lesion of the lingula He is not interesting in pursuing bronchoscopy at this time Appreciate pulm/palliative input #DM2 Glucose to ~400s on admission. Sliding scale insulin HgbA1C 6.8% from last admission, repeat pending Home meds: Metformin 1gm BID, dapagliflozin, semaglutide Continue to monitor with DM protocol #Elevated troponin Mildly elevated at 29.7 on admission, downtrending Suspect secondary to pulmonary HTN/RV strain #CKD stage III BUN 72, Cr 1.72 which is around baseline. Last discharge Cr was 1.87. Follows with Dr. Quintero as an outpatient. On [facility] 3x/week Monitor BMP - potassium stable Nephro input appreciated #chronic anemia, normocytic Hgb stable, monitoring At home: Iron every other day Prior need for Retracit, IV iron #Hypertension Holding at home HCTZ 25 mg PO BID Diltiazem 240 mg PO BID #CAD Cath 2014: multivessel disease Aspirin 81 mg PO q other day, atorvastatin 20mg PO qHS, diltiazem 240 mg PO BID #WENDY Not using CPAP at home Appreciate pulm input: BiPAP 12/8 nightly and PRN FENGI: carb consistent/heart healthy DVT ppx: heparin SQ Full code Admission and Anticipated Discharge Date Admission Date: September 04, 2022 Supervising Physician Co-Signing Physician Notes I personally examined the patient and verified all roca points of history and exam, discussed case, and agree with decision making with Lisy Farmer MS4 Breathing about the same as yesterday. Does not really feel like he will be on to go home again. After thought and discussion with familydeclines any further work-up for lung mass. Discussed PT/OT and assisted living versus SNF. Vitals noted, in general he is awake and alert pleasant no distress. Breathing unlabored no accessory muscle use but on baseline 4 L. No focal neurodeficits. CBC, BMP noted. Severe COPDdoes not really seem to have pneumonia, does not appear consistent with CHF exacerbationmostly appears to just be in a baseline variability of very severe COPD. Continue inhalers, continue azithromycinwith intent for chronic end-stage COPD type management. PT/OT regarding disposition Otherwise as above Subjective Kristopher got a fair amount of rest last night and is overall feeling stable. He has a wet-sounding cough during our conversation but has not brought up significant sputum. Breathing treatments are helping. His SOB with exertion is stable from yesterday, on 4L nasal cannula. He had a productive conversation with Dr. Beltran (palliative care) as well as his two children. Currently he is not interesting in pursuing the bronchoscopy as he doesn't think he would be the best candidate for the procedure, or potential treatments, depending on what the biopsy shows. He received his Lasix 40mg this morning and is urinating frequently without dysuria. He notes the swelling in his legs have improved slightly. No fevers, chills, or chest pain. Review of Systems Review of Systems: All systems reviewed & are unremarkable except as noted in HPI & below Physical Exam Physical Exam: Appearance: sitting upright with legs off the side of the bed, NAD Respiratory: 4L nasal cannula No peripheral or central cyanosis No conversational dyspnea, coarse breath sounds bilaterally, no crackles/wheeze in the lung lozoya bilaterally Cardiovascular: normal S1, S2, no M/R/G mild pitting edema to the LE BL Gastrointestinal (Abdomen): no pain/rebound/guarding to palpation Neurologic: AOx3, answering questions appropriately Results & Data Results & Data Vital Signs (Past 12 Hours) Vital Signs Temp Pulse Pulse Resp BP Pulse Ox O2 Del Method 09/06/22 07:57 37.1 C 88 19 174/76 H 92 Nasal Cannula 09/06/22 07:11 71 20 93 Nasal Cannula 09/06/22 03:16 36.7 C 81 18 161/72 H 94 Room Air 09/06/22 02:02 80 18 93 Nasal Cannula 09/05/22 23:00 74 09/05/22 23:22 36.4 C L 79 20 168/73 H 95 Room Air 09/05/22 23:06 78 18 93 Nasal Cannula O2 Flow Rate 09/06/22 07:57 4 09/06/22 07:11 4 09/06/22 03:16 09/06/22 02:02 4 09/05/22 23:00 09/05/22 23:22 09/05/22 23:06 4 Laboratory Results 09/06/22 09/06/22 09/06/22 07:30 07:30 07:18 WBC 12.84 H RBC 3.45 L Hgb 9.4 L Hct 30.2 L MCV 87.5 MCH 27.2 MCHC 31.1 L RDW Std Deviation 56.9 H RDW Coeff of Arnoldo 17.9 H Plt Count 203 MPV 10.3 Immature Gran % (Auto) 0.5 Neut % (Auto) 92.4 Lymph % (Auto) 3.3 [place] % (Auto) 3.4 Eos % (Auto) 0.3 Baso % (Auto) 0.1 Neut # (Auto) 11.86 H Lymph # (Auto) 0.43 L [place] # (Auto) 0.44 Eos # (Auto) 0.04 Baso # (Auto) 0.01 Immature Gran # (Auto) 0.06 Polychromasia 1+ Ovalocytes 1+ Sodium 135 L Potassium 4.0 Chloride 94 L Carbon Dioxide 31 Anion Gap 10 BUN 72 H Creatinine 1.72 H D Est Cr Clr Drug Dosing 37.1 Est GFR ( Amer) 44.1 Est GFR (Non-Af Amer) 38.0 BUN/Creatinine Ratio 41.9 H Glucose 176 H POC Glucose 183 H Calcium 8.5 L Magnesium 2.5 H Total Bilirubin 0.3 AST 23 ALT 29 Alkaline Phosphatase 51 Total Protein 6.2 Albumin 3.2 L Globulin 3.0 Albumin/Globulin Ratio 1.1 09/05/22 09/05/22 09/05/22 23:48 20:45 16:13 WBC RBC Hgb Hct MCV MCH MCHC RDW Std Deviation RDW Coeff of Arnoldo Plt Count MPV Immature Gran % (Auto) Neut % (Auto) Lymph % (Auto) [place] % (Auto) Eos % (Auto) Baso % (Auto) Neut # (Auto) Lymph # (Auto) [place] # (Auto) Eos # (Auto) Baso # (Auto) Immature Gran # (Auto) Polychromasia Ovalocytes Sodium Potassium Chloride Carbon Dioxide Anion Gap BUN Creatinine Est Cr Clr Drug Dosing Est GFR ( Amer) Est GFR (Non-Af Amer) BUN/Creatinine Ratio Glucose POC Glucose 221 H 133 H 140 H Calcium Magnesium Total Bilirubin AST ALT Alkaline Phosphatase Total Protein Albumin Globulin Albumin/Globulin Ratio 09/05/22 11:25 WBC RBC Hgb Hct MCV MCH MCHC RDW Std Deviation RDW Coeff of Arnoldo Plt Count MPV Immature Gran % (Auto) Neut % (Auto) Lymph % (Auto) [place] % (Auto) Eos % (Auto) Baso % (Auto) Neut # (Auto) Lymph # (Auto) [place] # (Auto) Eos # (Auto) Baso # (Auto) Immature Gran # (Auto) Polychromasia Ovalocytes Sodium Potassium Chloride Carbon Dioxide Anion Gap BUN Creatinine Est Cr Clr Drug Dosing Est GFR ( Amer) Est GFR (Non-Af Amer) BUN/Creatinine Ratio Glucose POC Glucose 212 H Calcium Magnesium Total Bilirubin AST ALT Alkaline Phosphatase Total Protein Albumin Globulin Albumin/Globulin Ratio (4) DM type 2 (diabetes mellitus, type 2) Diabetes mellitus complication status: without complication Diabetes mellitus residential insulin use: without intermodal dispatcher use Qualified Code(s): E11.9 - Type 2 diabetes mellitus without complications (9) Anemia Anemia type: unspecified type Qualified Code(s): D64.9 - Anemia, unspecified (10) Coronary artery disease Associated angina: without angina Coronary Disease-Associated Artery/Lesion type: [place] artery [place] vs. transplanted heart: [place] heart Qualified Code(s): I25.10 - Atherosclerotic heart disease of [place] coronary artery without angina pectoris
--- NOTE | 2022-09-06 11:36 | Nephrology Progress Note ---
Date of Service September 06, 2022 Assessment & Plan (1) Chronic renal insufficiency: Plan: Creatinine improved to 1.72 mg/dL. Baseline 1.5 mg/dL. Electrolytes acceptable with noted mild hyponatremia. Non-oliguric. Volume status improving. Medications appropriately dosed for kidney function. Document I/O's. Repeat metabolic profile tomorrow AM. No ACEi due to history of angioedema and hyperkalemia. Remains on Lokelma 3 x weekly. Potassium acceptable. (2) Acute and chronic respiratory failure with hypoxia: Plan: Remains on furosemide 40 mg daily with adequate diuresis. Document I/O's and donavon ly weight. Volume status improved. TTE reviewed. Importance of dietary sodium and fluid restriction reviewed. (3) COPD exacerbation: Plan: Clinically improving with management. Remains on Cefepime. Baseline O2 requirement 4-6 L. (4) Renal cyst: Plan: Updated CT scan reviewed. Evidence of mild chronic hydronephrosis noted. Kidney function improving. No additional evaluation at this time. Will monitor. (5) Anemia: Plan: Followed by Dr. Sam in the hematology clinic as an outpatient. Retacrit QOW. Tsat 8, ferritin 248. Will provide a dose of IV venofer today. (6) Abnormal CT scan, chest: Plan: I discussed the plan of care with Dr. Bui this morning. Kristopher plans to follow up with palliative care regarding goals of care discussion. Currently, he is declining bronchoscopy for additional evaluation. Admission and Anticipated Discharge Date Admission Date: September 04, 2022 Subjective No acute events overnight. Kristopher reported feeling well this morning. Dyspnea and orthopnea have improved. Activity tolerance remains reduced due to CROWE and some weakness. No cough. Denies fevers or chills. Kristopher told me this morning that he had a really helpful conversation with his daughter yesterday. He appreciated his discussion with palliative care. He is favoring more conservative approach to care and not currently planning on additional diagnostic interventions. Appetite is fair. He is tolerating fluid restriction reasonably well though he pushes the limit and often requests extra fluids. He denies fluid retention. Edema has markedly improved. Skin turgor is down. Urinary frequency reported with furosemide. He did ask about holding the medication today but it had been given this AM already. Review of Systems Review of Systems: All systems reviewed & are unremarkable except as noted in HPI & below Physical Exam Constitutional: well developed, + thin and + frail appearing; no acute distress Eyes: + anicteric sclerae; no corneal abnormality ENMT: Mouth: no oral mucosal abnormality and oral mucous membranes not dry Neck: normal visual inspection and trachea midline Respiratory: normal respiratory effort Auscultation: lungs clear to auscultation bilaterally and + rales (few basilar) Cardiovascular: Rate/Rhythm: regular rate Heart Sounds: normal S1, normal S2 and + murmur Vessels: + JVD Extremities: + pedal edema Musculoskeletal: Extremities: no cyanosis and no clubbing Skin: + turgor decreased; no jaundice Neurologic: Motor/Sensory: no tremor and no asterixis Psychiatric: Orientation: alert and oriented x 3 Results & Data Vital Signs (Past 12 Hours) Vital Signs Temp Pulse Resp BP Pulse Ox O2 Del Method O2 Flow Rate 09/06/22 11:21 79 20 90 Nasal Cannula 4 09/06/22 07:57 37.1 C 88 19 174/76 H 92 Nasal Cannula 4 09/06/22 07:11 71 20 93 Nasal Cannula 4 09/06/22 03:16 36.7 C 81 18 161/72 H 94 Room Air 09/06/22 02:02 80 18 93 Nasal Cannula 4 Laboratory Results Laboratory Results - last 24 hr 09/05/22 09/05/22 09/05/22 16:13 20:45 23:48 WBC RBC Hgb Hct MCV MCH MCHC RDW Std Deviation RDW Coeff of Arnoldo Plt Count MPV Immature Gran % (Auto) Neut % (Auto) Lymph % (Auto) [place] % (Auto) Eos % (Auto) Baso % (Auto) Neut # (Auto) Lymph # (Auto) [place] # (Auto) Eos # (Auto) Baso # (Auto) Immature Gran # (Auto) Polychromasia Ovalocytes Sodium Potassium Chloride Carbon Dioxide Anion Gap BUN Creatinine Est Cr Clr Drug Dosing Est GFR ( Amer) Est GFR (Non-Af Amer) BUN/Creatinine Ratio Glucose POC Glucose 140 H 133 H 221 H Calcium Magnesium Total Bilirubin AST ALT Alkaline Phosphatase Total Protein Albumin Globulin Albumin/Globulin Ratio 09/06/22 09/06/22 09/06/22 07:18 07:30 07:30 WBC 12.84 H RBC 3.45 L Hgb 9.4 L Hct 30.2 L MCV 87.5 MCH 27.2 MCHC 31.1 L RDW Std Deviation 56.9 H RDW Coeff of Arnoldo 17.9 H Plt Count 203 MPV 10.3 Immature Gran % (Auto) 0.5 Neut % (Auto) 92.4 Lymph % (Auto) 3.3 [place] % (Auto) 3.4 Eos % (Auto) 0.3 Baso % (Auto) 0.1 Neut # (Auto) 11.86 H Lymph # (Auto) 0.43 L [place] # (Auto) 0.44 Eos # (Auto) 0.04 Baso # (Auto) 0.01 Immature Gran # (Auto) 0.06 Polychromasia 1+ Ovalocytes 1+ Sodium 135 L Potassium 4.0 Chloride 94 L Carbon Dioxide 31 Anion Gap 10 BUN 72 H Creatinine 1.72 H D Est Cr Clr Drug Dosing 37.1 Est GFR ( Amer) 44.1 Est GFR (Non-Af Amer) 38.0 BUN/Creatinine Ratio 41.9 H Glucose 176 H POC Glucose 183 H Calcium 8.5 L Magnesium 2.5 H Total Bilirubin 0.3 AST 23 ALT 29 Alkaline Phosphatase 51 Total Protein 6.2 Albumin 3.2 L Globulin 3.0 Albumin/Globulin Ratio 1.1 09/06/22 11:25 WBC RBC Hgb Hct MCV MCH MCHC RDW Std Deviation RDW Coeff of Arnoldo Plt Count MPV Immature Gran % (Auto) Neut % (Auto) Lymph % (Auto) [place] % (Auto) Eos % (Auto) Baso % (Auto) Neut # (Auto) Lymph # (Auto) [place] # (Auto) Eos # (Auto) Baso # (Auto) Immature Gran # (Auto) Polychromasia Ovalocytes Sodium Potassium Chloride Carbon Dioxide Anion Gap BUN Creatinine Est Cr Clr Drug Dosing Est GFR ( Amer) Est GFR (Non-Af Amer) BUN/Creatinine Ratio Glucose POC Glucose 142 H Calcium Magnesium Total Bilirubin AST ALT Alkaline Phosphatase Total Protein Albumin Globulin Albumin/Globulin Ratio PG Care Time/CCT Total # of Minutes Spent Total Time Spent with Patient: Total time spent is greater than 50% in coordination of care (as documented) at patient's floor/unit and/or counseling patient: Coding Level of Care Code 01903 SUB INP/OBS CARE 3/50MIN Diagnoses Chronic renal insufficiency N18.9 Acute and chronic respiratory failure with hypoxia J96.21 COPD exacerbation J44.1 Renal cyst N28.1 Anemia D64.9 Anemia type: unspecified type Abnormal CT scan, chest R93.89 (5) Anemia Anemia type: unspecified type Qualified Code(s): D64.9 - Anemia, unspecified
[2022-09-06] MEDS ORDERED: IRON SUCROSE 400 MG in SODIUM CHLORIDE 0.9% 250 ML IV ONE (12:00)
--- NOTE | 2022-09-06 12:38 | Palliative Care Progress Note ---
Date of Service September 06, 2022 Assessment & Plan (1) Palliative care encounter: Plan: Mr. Louie tells me that he had a discussion with his son and daughter last night. He has decided that he does not want to proceed with bronchoscopy at this time. He feels that he wants to focus on recovering from pneumonia and determine what his new normal will be with advanced COPD. He is considering f/u imaging in three months and will discuss this with Dr. Bui. We discussed his code status and he tells me that he understands that he would likely not be able to wean from ventilator support if he were intubated. He feels that he would not want to have intubation or CPR. I discussed this with his daughter, Carmen, as well. She agrees with DNR/DNI. Code status changed to reflect this. Admission and Anticipated Discharge Date Admission Date: September 04, 2022 Subjective No complaints this morning. Review of Systems Review of Systems: ESAS Pain 0/3 Dyspnea 0/3 Nausea 0/3 Drowsiness 0/3 Physical Exam Constitutional: no acute distress Respiratory: normal respiratory effort; no labored breathing Neurologic: Speech / Cognition: normal cognition Genitourinary: Continent Results & Data Vital Signs (Past 12 Hours) Vital Signs Temp Pulse Resp BP Pulse Ox O2 Del Method O2 Flow Rate 09/06/22 11:57 98.1 F 91 H 18 166/73 H 90 Nasal Cannula 4 09/06/22 11:21 79 20 90 Nasal Cannula 4 09/06/22 07:57 98.8 F 88 19 174/76 H 92 Nasal Cannula 4 09/06/22 07:11 71 20 93 Nasal Cannula 4 09/06/22 03:16 98.1 F 81 18 161/72 H 94 Room Air 09/06/22 02:02 80 18 93 Nasal Cannula 4 PG Care Time/CCT Total # of Minutes Spent Total Time Spent with Patient: Total time spent is greater than 50% in coordination of care (as documented) at patient's floor/unit and/or counseling patient: Coding Level of Care Code 70312 SUB INP/OBS CARE 3/50MIN Diagnoses Palliative care encounter Z51.5
--- NOTE | 2022-09-06 14:14 | Pharmacy Report ---
Pharmacy Glycemic Short Note 2 - Date of Service September 06, 2022 - Glycemic Short BSG Results (Last 24 hours): 09/05/22 09/05/22 09/05/22 16:13 20:45 23:48 Glucose POC Glucose 140 H 133 H 221 H 09/06/22 09/06/22 09/06/22 07:18 07:30 11:25 Glucose 176 H POC Glucose 183 H 142 H OUTPATIENT ANTIDIABETIC REGIMEN: * Farxiga 10 mg PO daily * Metformin 1 gm PO BID * Semaglutide 14 mg PO QAM HbA1c = 6.8% on 08/20/22 ASSESSMENT: 09/06 * Patient received total of 82 units of insulin yesterday, of which 20 units were basal (25 units of basal 6 PM) * Fasting BSG 176 mg/dL - will continue with Lantus scale of 20-25 units this AM * BSGs much improving from day prior - will scale back slightly on novolog today 09/05 * Patient received total of 125 units of insulin in addition to insulin drip yesterday. Of which, 45 units were basal insulin * Fasting BSG 228 mg/dL - anticipate improvement with blood sugars today as steroids likely wearing off now, no further steroids ordered. Will give 20 units x 1 of basal this AM and have scale for HS 0-10 units * Plan to loosen novolog parameters later today as steroids wear off 09/04 * 77 y/o M admitted for respiratory failure, CHF vs COPD exacerbation. Patient was on three different oral anti-diabetic meds at home for Type 2 diabetes. He also has history of chronic kidney disease. * Received IV Solu medrol 125 mg in ED today AM. BSG on admission was 423 mg/dl. This afternoon BSG trended up to 512 mg/dl most likely steroid induced. * Pharmacy consulted this afternoon after hospitalist ordered 10 units of IV regular insulin. Patient is known to glycemic service from recent admissions. * Novolog ordered based on stress of 3 and tighter carb ratio as his last admission in August 2022. * Basal dose of 20 units x1 given this afternoon and a dose scale added for HS based on BSG. PLAN FOR INPATIENT GLYCEMIC CONTROL: * Hold outpatient oral diabetes medications * Basal insulin * Lantus 20 -25 units daily * Bolus insulin * NovoLog per scale ACHS or Q6hrs while NPO * Goal Range: Low 110 mg/dL - High 140 mg/dL * Correction Factor: 20 mg/dL/unit * Nutritional / Prandial insulin per carb ratio of 1 unit per 8 grams CHO consumed
--- NOTE | 2022-09-06 15:11 | Pulmonology Progress Note ---
Date of Service September 06, 2022 Assessment & Plan (1) Acute and chronic respiratory failure with hypoxia: Plan: His oxygen requirements are essentially back to baseline. I suspect some intermittent mucous plugging. Please discharge the patient with a flutter valve and hypertonic saline when appropriate. He is without evidence of bronchospasm and I do not think that systemic corticosteroids are indicated at this time. Continue to wean O2 sats to maintain saturation of 88 to 92%. Okay to increase supplemental oxygen with ambulation to assist with dyspnea. (2) WENDY (obstructive sleep apnea): Plan: Continue CPAP with sleep. (3) Abnormal CT scan, chest: Plan: Patient elected to not proceed with bronchoscopy to evaluate the left upper lobe lesion. He understands that this area may represent malignancy and the delay of diagnosis may delay treatment which can in turn lead to metastatic disease. He is not interested in pursuing a CT as previously scheduled 6 weeks from the previous. He notes that he would like a CT at the earliest in 3 months. Again, I reiterated to him that I have a high suspicion of possible malignancy. He indicates that he is not interested in diagnosis or treatment of a potential malignancy at this time. (4) Goals of care, counseling/discussion: Plan: He has end-stage COPD and probable lung cancer. Appreciate palliative input. He is now DNR/DNI. Plan I will sign off at this time. Please call with questions. Thank you for allowing me to participate in the care of the patient. Admission and Anticipated Discharge Date Admission Date: September 04, 2022 Subjective No significant change compared to yesterday. Remains dyspneic with exertion. Review of Systems Review of Systems: All systems reviewed & are unremarkable except as noted in HPI & below Physical Exam Constitutional: Elderly-appearing male no apparent distress. Eyes: PERRL, conjunctivae normal, anicteric sclerae Respiratory: Lung sounds diminished bilaterally. Prolonged phase of exhalation. Mild crackles bilaterally. Cardiovascular: Normal rate and rhythm. Trace edema in the lower extremities. Gastrointestinal (Abdomen): normal bowel sounds, soft, nontender, no hepatosplenomegaly Neurologic: CN's II-XI intact bilaterally Psychiatric: A+Ox3, euthymic affect Results & Data Results & Data Vital Signs (Past 12 Hours) Vital Signs Temp Pulse Resp BP Pulse Ox O2 Del Method O2 Flow Rate 09/06/22 12:31 Nasal Cannula 4 09/06/22 11:57 36.7 C 91 H 18 166/73 H 90 Nasal Cannula 4 09/06/22 11:21 79 20 90 Nasal Cannula 4 09/06/22 07:57 37.1 C 88 19 174/76 H 92 Nasal Cannula 4 09/06/22 07:11 71 20 93 Nasal Cannula 4 09/06/22 03:16 36.7 C 81 18 161/72 H 94 Room Air PG Care Time/CCT Total # of Minutes Spent Total Time Spent with Patient: Total time spent is greater than 50% in coordination of care (as documented) at patient's floor/unit and/or counseling patient: Coding Level of Care Code 20299 SUB INP/OBS CARE 2/35MIN Diagnoses Acute and chronic respiratory failure with hypoxia J96.21 WENDY (obstructive sleep apnea) G47.[address] scan, chest R93.89 Goals of care, counseling/discussion Z71.89
--- NOTE | 2022-09-06 18:56 | Billing Data ---
Date of Service September 06, 2022 Coding Level of Care Code 83389 SUB INP/OBS CARE
[2022-09-06] MEDS: ATORVASTATIN 20 MG TAB PO SCH (21:46)
[2022-09-07] MEDS: ALBUT/IPRATROP 3MG/0.5MG NEB 3 ML VIAL NEB SCH ×6 (03:04→22:13)
[2022-09-07] MEDS: FORMOTEROL 20 MCG/2 ML VIAL INH SCH ×2 (07:07→19:01)
[2022-09-07] MEDS: BUDESONIDE 0.5 MG/2 ML VIAL (PULMICORT) INH SCH ×2 (07:07→19:01)
[2022-09-07] MEDS: SODIUM CHLOR 7% 4 ML NEB NEB SCH ×2 (07:07→19:01)
[2022-09-07 07:57] LABS: Hematocrit (blood only) 31.3 % (42.0-52.0); Hemoglobin 9.9 g/dl (14.0-18.0); Mean Corpuscular Hemoglobin 27.7 pg (25.0-34.0); Mean Corpuscular Hgb Conc 31.6 g/dL (32.0-36.0); Mean Corpuscular Volume 87.4 fL (80.0-100.0); Mean Platelet Volume 10.5 fL (9.4-12.4); Platelet Count 211 K/uL (130-400); RDW Coefficient of Variation 18.1 % (11.5-14.5); RDW Standard Deviation 56.9 fL (36.4-46.3); Red Blood Count 3.58 M/uL (4.70-6.10); White Blood Count 9.78 K/ul (4.8-10.8)
[2022-09-07 08:20] LABS: BUN Creatinine Ratio 35.8 (10-20); Calcium 8.5 mg/dl (8.6-10.3); Creatinine Clr Calc Pharmacy 38.7 ml/min; Est GFR (African American) 46.4 ml/min; Potassium 3.8 mmol/L (3.5-5.1)
[2022-09-07] MEDS: dilTIAZem HCL 240 MG CAPCR PO SCH ×2 (08:25→19:51)
[2022-09-07] MEDS: MAGNESIUM OXIDE 400 MG TAB PO SCH ×2 (08:25→19:53)
[2022-09-07] MEDS: ASPIRIN 81 MG ECTAB PO SCH (08:26)
[2022-09-07] MEDS: PANTOprazole 40 MG TAB PO SCH (08:26)
[2022-09-07] MEDS: ASCORBIC ACID 500 MG TAB PO SCH (08:26)
[2022-09-07] MEDS: FUROSEMIDE 40 MG TAB PO SCH (08:27)
[2022-09-07] MEDS: AZITHROMYCIN 250 MG TAB PO SCH (08:27)
[2022-09-07] MEDS: guaiFENesin 600 MG TABCR PO SCH ×2 (08:27→19:52)
[2022-09-07] MEDS: UMECLIDINIUM BROMIDE 62.5MCG/BLISTER 7 PUFFS/INHALER INH SCH (08:27)
[2022-09-07] MEDS: LANTUS PER UNIT CHARGE SC SCH (08:40)
[2022-09-07] MEDS: INSULIN ASPART PER UNIT CHARGE SC SCH ×4 (08:40→19:57)
[2022-09-07] MEDS: HEPARIN SOD 5,000 UNIT/0.5 ML VIAL SQ SCH ×2 (09:27→19:52)
--- NOTE | 2022-09-07 09:51 | Nephrology Progress Note ---
Date of Service September 07, 2022 Assessment & Plan (1) Chronic renal insufficiency: Plan: Creatinine improving to 1.65 mg/dL. Baseline 1.5 mg/dL. Electrolytes acceptable. Non-oliguric. Volume status notably improved. Medications appropriately dosed for kidney function. Document I/O's and monitor daily renal profile while inpatient. No ACEi due to history of angioedema and hyperkalemia. Remains on Lokelma 3 x weekly. Potassium acceptable. (2) Acute and chronic respiratory failure with hypoxia: Plan: Remains on furosemide 40 mg daily with adequate diuresis. Document I/O's and daily weight. Volume status improved. Dietary sodium and fluid restriction. (3) COPD exacerbation: Plan: Clinically improving with management. Remains on Cefepime. Baseline O2 requirement 4-6 L. (4) Renal cyst: Plan: Updated CT scan reviewed. Evidence of mild chronic hydronephrosis noted. Kidney function improving. No additional evaluation at this time. (5) Anemia: Plan: Followed by Dr. Sam in the hematology clinic as an outpatient. Retacrit QOW. Tsat 8, ferritin 248. IV venofer 400 mg provided yesterday. (6) Abnormal CT scan, chest: Plan: Declined additional evaluation at this time. Outpatient follow up to be arranged. Admission and Anticipated Discharge Date Admission Date: September 04, 2022 Subjective No acute events overnight. Breathing relatively comfortably this AM. LE edema significantly improved. Reports notable urine output with diuretics. Planning to get out of bed and walk with RN later today. PT/OT pending. Review of Systems Review of Systems: All systems reviewed & are unremarkable except as noted in HPI & below Physical Exam Constitutional: well developed and + thin; no acute distress Eyes: + anicteric sclerae; no corneal abnormality ENMT: Mouth: no oral mucosal abnormality and oral mucous membranes not dry Neck: normal visual inspection and trachea midline Respiratory: normal respiratory effort Auscultation: lungs clear to auscultation bilaterally Cardiovascular: Rate/Rhythm: regular rate Heart Sounds: normal S1, normal S2 and + murmur Extremities: + pedal edema Musculoskeletal: Extremities: no cyanosis and no clubbing Skin: + turgor decreased; no jaundice Neurologic: Motor/Sensory: no tremor and no asterixis Psychiatric: Orientation: alert and oriented x 3 Results & Data Vital Signs (Past 12 Hours) Vital Signs Temp Pulse Pulse Resp BP Pulse Ox O2 Del Method 09/07/22 07:42 37.0 C 89 22 167/79 H 91 Nasal Cannula 09/07/22 07:07 87 18 91 Nasal Cannula 09/07/22 00:00 90 09/07/22 03:06 87 18 92 Nasal Cannula 09/07/22 02:47 36.6 C 91 H 18 140/85 95 Nasal Cannula 09/06/22 22:59 36.5 C 90 16 150/81 H 95 Nasal Cannula 09/06/22 22:14 88 18 91 Nasal Cannula O2 Flow Rate 09/07/22 07:42 4 09/07/22 07:07 4 09/07/22 00:00 09/07/22 03:06 4 09/07/22 02:47 09/06/22 22:59 09/06/22 22:14 4 Laboratory Results Laboratory Results - last 24 hr 09/06/22 09/06/22 09/06/22 11:25 16:13 16:14 WBC RBC Hgb Hct MCV MCH MCHC RDW Std Deviation RDW Coeff of Arnoldo Plt Count MPV Sodium Potassium Chloride Carbon Dioxide Anion Gap BUN Creatinine Est Cr Clr Drug Dosing Est GFR ( Amer) Est GFR (Non-Af Amer) BUN/Creatinine Ratio Glucose POC Glucose 142 H 65 L* 63 L* Calcium 09/06/22 09/06/22 09/07/22 16:34 20:10 07:14 WBC RBC Hgb Hct MCV MCH MCHC RDW Std Deviation RDW Coeff of Arnoldo Plt Count MPV Sodium Potassium Chloride Carbon Dioxide Anion Gap BUN Creatinine Est Cr Clr Drug Dosing Est GFR ( Amer) Est GFR (Non-Af Amer) BUN/Creatinine Ratio Glucose POC Glucose 78 100 H 91 Calcium 09/07/22 09/07/22 07:34 07:37 WBC 9.78 RBC 3.58 L Hgb 9.9 L Hct 31.3 L MCV 87.4 MCH 27.7 MCHC 31.6 L RDW Std Deviation 56.9 H RDW Coeff of Arnoldo 18.1 H Plt Count 211 MPV 10.5 Sodium 137 Potassium 3.8 Chloride 97 L Carbon Dioxide 33 H Anion Gap 7 BUN 59 H Creatinine 1.65 H Est Cr Clr Drug Dosing 38.7 Est GFR ( Amer) 46.4 Est GFR (Non-Af Amer) 40.0 BUN/Creatinine Ratio 35.8 H Glucose 88 POC Glucose Calcium 8.5 L PG Care Time/CCT Total # of Minutes Spent Total Time Spent with Patient: Total time spent is greater than 50% in coordination of care (as documented) at patient's floor/unit and/or counseling patient: Coding Level of Care Code 95589 SUB INP/OBS CARE 3/50MIN Diagnoses Chronic renal insufficiency N18.9 Acute and chronic respiratory failure with hypoxia J96.21 COPD exacerbation J44.1 Renal cyst N28.1 Anemia D64.9 Anemia type: unspecified type Abnormal CT scan, chest R93.89 (5) Anemia Anemia type: unspecified type Qualified Code(s): D64.9 - Anemia, unspecified
--- NOTE | 2022-09-07 16:51 | Discharge Summary ---
Date of Service September 07, 2022 Admission HPI Per Admitting Provider 77yo male with significant PMHx for severe COPD with chronic hypoxemic respiratory failure on 4L O2 at baseline (prior was on 3L), WENDY (not using CPAP), CAD, SVT, DM II, HTN, HLD, CKD III, anemia presented to ER with EMS for shortness of breath similar to recent admission and discharge on 08/23 with abx for coverage for pneumonia with cefdinir and prednisone taper. Also admitted in Feb for elevated LFTs and found to have ESBL bacteremia, sensitive to Ertapenem/Augmentin and was suspected due to a suspected stone passing/cholangitis. Completed abx through [facility] with Ertanem mid febubalfour. Last admission, NPO for possible bronch for concerns lung cancer given mass. Last pulm note states f/u CT 6 weeks outpatient setting and eval for bronch eval at that time. Patient was seen in room B4B, he is currently eating lunch. Reports he completed his course of steroids and antibiotics this past monday/ and was feeling slightly improved but increased swelling/shortness of breath, cough but without sputum production. No fevers/chills. BSG elevation but typically he notes he is in the 130-150s range at home on his usual antibiotics. He denies any abdominal pain/nausea/vomiting. He notes the swelling in his legs was getting a little better but now much worse. No calf pain. Discussed I believe he has a little bit of heart failure contributing to his symptoms. Elevated troponin but denies any chest pain. Renal function elevated but not dehydrated on exam, and follows with Dr Quintero typically. No palpitations reported. No urinary symptoms at present, clear urine. O2 sats in 70s w/ EMS, given Duoneb -- CXR about the same but some possible fluid overload component. Given Duoneb x 1, cefepime IV. BSGs to 400s in DM II patient, high for him, and given 4u insulin. CXR w/ Patchy bibasilar and left midlung airspace opacities are suggestive of pneumonia, similar in appearance to the study from 08/19/2022. Spiculated lesion of the lingula is better seen on the comparison chest CT. Severe pulmonary emph ysema. Discussed admission for eval/management respiratory failure/diuretics, ECHO to eval valvular heart disease, suspected CHF. He takes Lasix 40mg PO in the AM, 20mg PO PM at baseline but reports he doesn't check his weights at home. Discussed CHF vs cards consult pending echo/response. Weight 75.7kg on admit in August, discharged at 85.3kg -- discharged on increased O2 to 4L from his baseline 3L and is on 6L Oxymask at present, breathing comfortably and eating lunch. Currently weight 82kg. Will give dose IV lasix 40mg at present and monitor response and repeat labs this evening/additional dosing based on output. Daughter works in [employer]/onc at [employer] if needed to contact for any reason. Admission Exam Per Admitting Provider General: chronically ill appearing male, sitting up in bed, NAD eating lunch Resp: diminished in the bases, expiratory wheezing, bibasilar crackles, on 6-7L Oxymask to maintain saturations CV: regular rate/rhtyhm, no significant m/r/g, 3-4+ pitting edema bilateral LE, calves nontender, pulses palpable GI: +BS, slight distension, +edema, nontender, no guarding/rebound : no santos MSK/Neuro: no focal deficit, no slurred speech, no confusion, generalized weakness throughout Psych: AOx3, cooperative with exam Principal Diagnosis COPD Exacerbation Discharge Exam Appearance: sitting upright in bed, NAD Cardio: normal S1, S2, no murmurs, extremities warm. No central or peripheral cyanosis. Resp: 4L nasal cannula, no conversational dyspnea, lungs clear to auscultation bilaterally without rales/rhonchi/wheeze Abdominal: active bowel sounds, no pain/rebound/guarding to palpation Neuro: alert, answering questions appropriately Lymphatics: lower extremities symmetrical with mild pitting edema. No erythema. Discharge Data Allergies Allergy/AdvReac Type Severity Reaction Status Date / Time ALYSSA Inhibitors Allergy Severe ANAPHYLAXIS Verified 09/04/22 10:18 Consultations 09/04/22 09:55 ED Decision to Admit Stat 09/04/22 13:03 Consult Pulmonology Routine 09/04/22 19:06 Consult Nephrology Routine 09/05/22 09:16 Consult Cardiology Routine 09/05/22 11:24 Consult Palliative Care Routine Hospital Course (1) Acute and chronic respiratory failure with hypoxia: (2) COPD, severe: (3) CKD (chronic kidney disease) stage 3, GFR 30-59 ml/min: (4) DM type 2 (diabetes mellitus, type 2): (5) WENDY (obstructive sleep apnea): (6) Pneumonia: (7) CROWE (dyspnea on exertion): (8) Chronic renal insufficiency: (9) Anemia: (10) Coronary artery disease: (11) Mass of upper lobe of left lung: Gail Summers is a 77 y/o M with PMHx of COPD with chronic hypoxemic respiratory failure (4L O2 requirement), WENDY (not using CPAP), CKD III, CAD, SVT, DM II, HTN, HLD and anemia who presented to the ED on 09/04/22 with SOB. He was discharged on 08/23/22 on Cefdinir and predinose taper. In 05/2022 he had ESBL bacteremia secondary to suspected cholangitis, which was sensitive to Ertapenem/Augmentin. #COPD, Gold E Class IV Gold E, class IV, on 4L oxygen at home Infectious workup negative Imaging suggested COPD as opposed to other entities. Pulmonary also saw the patient and agreed. Recommended Flutter valve and hypertonic saline when appropriate. No indication for steroids. Azithromycin 250mg PO three days/week #Acute on chronic diastolic CHF BNP mildly elevated at 141 on admission. Cardio input appreciated - SOB unlikely cardiac in origin. Echo 09/05/22: EF 60-65%, no wall motion abnormalities, moderate concentric LVH. Mildly dilated RV, RA. Moderate pulmonary HTN (RVSP 53mmHg, ~stable from 40-5 0mmHg on 07/27/21). Very small pericardial effusion along RV. Continue home Lasix 60mg (40mg in the AM, 20mg PO in the PM) Kidney function near baseline *anaphylactic reaction to ALYSSA-inhibitors Discussed dietary salt consumption #Mass of upper lobe of left lung CT 08/19/22: parahilar left upper lobe measuring 3.7 x 4.3 x 5.4 cm, spiculated lesion of the lingula Not pursuing bronchoscopy at this time Appreciate pulm/palliative input #DM2 Glucose to ~400s on admission. HgbA1C 8.0% Continue home meds: Metformin 1gm BID, dapagliflozin, semaglutide #Elevated troponin Mildly elevated and downtrended. Suspect secondary to pulmonary HTN/RV strain #CKD stage III Kidney function at baseline. Follows with Dr. Quintero as an outpatient. On Lokelma 3x/week Electrolytes stable Nephro input appreciated #chronic anemia, normocytic Hgb stable Continue iron every other day Nephrology input appreciated #Hypertension Continue Lasix as above and diltiazem 240 mg PO BID #CAD Cath 2014: multivessel disease Aspirin 81 mg PO q other day, atorvastatin 20mg PO qHS #WENDY Not using CPAP at home Appreciate pulm input: BiPAP 12/8 nightly and PRN FENGI: carb consistent/heart healthy DVT ppx: heparin SQ Dispo: nursing home facility Full code Total Time Total Time Spent Total Time Spent (In Minutes): See attending attestation. Discharge Plan Discharge Items Patient Disposition: Transfer [facility] Reason For Visit: RESPIRATORY FAILURE, SUSPECTED CHF VS COPD EXAC Discharge Diagnosis: End stage COPD Activity: Resume your previous activity Non-emergency contact: Primary Care Provider Call non-emergency contact if: your symptoms worsen, you have a fever and your temperature is above 101 Follow-up/Referrals: James Perdue MD [Primary Care Provider] - Diet: Carb Consistent or DM2 and Heart Healthy Addtl Attending Provider Instructions: Kristopher is a 77 y/o M with PMHx of COPD with chronic hypoxemic respiratory failure (4L O2 requirement), WENDY (not using CPAP), CKD III, CAD, SVT, DM II, HTN, HLD and anemia who presented to the ED on 09/04/22 with SOB. He was discharged on 08/23/22 on Cefdinir and predinose taper. In 05/2022 he had ESBL bacteremia secondary to suspected cholangitis, which was sensitive to Ertapenem/Augmentin. #COPD, Gold E Class IV Gold E, class IV, on 4L oxygen at home Infectious workup negative Imaging suggested COPD as opposed to other entities. Pulmonary also saw the patient and agreed. Recommended Flutter valve and hypertonic saline when appropriate. No indication for steroids . Started Azithromycin 250mg PO three days/week as prophylaxis of COPD exacerbation #Acute on chronic diastolic CHF BNP mildly elevated at 141 on admission. Cardio input appreciated - SOB unlikely cardiac in origin. Echo 09/05/22: EF 60-65%, no wall motion abnormalities, moderate concentric LVH. Mildly dilated RV, RA. Moderate pulmonary HTN (RVSP 53mmHg, ~stable from 40- 50mmHg on 4/26/22). Very small pericardial effusion along RV. Continue home Lasix 60mg (40mg in the AM, 20mg PO in the PM) Kidney function near baseline *anaphylactic reaction to ALYSSA-inhibitors Discussed dietary salt consumption #Mass of upper lobe of left lung CT 08/19/22: parahilar left upper lobe measuring 3.7 x 4.3 x 5.4 cm, spiculated lesion of the lingula Not pursuing bronchoscopy at this time Discussed with pulm and palliative #DM2 Glucose to ~400s on admission. HgbA1C 8.0% Continue home meds: Metformin 1gm BID, dapagliflozin, semaglutide #Elevated troponin Mildly elevated and downtrended. Suspect secondary to pulmonary HTN/RV strain #CKD stage III Kidney function at baseline. Follows with Dr. Quintero as an outpatient. On Lokelma 3x/week Electrolytes stable Nephro consulted #chronic anemia, normocytic Hgb stable Continue iron every other day Nephrology consulted #Hypertension Continue Lasix as above and diltiazem 240 mg PO BID #CAD Cath 2014: multivessel disease Aspirin 81 mg PO q other day, atorvastatin 20mg PO qHS #WENDY Not using CPAP at home consulted pulm : BiPAP 12/8 nightly and PRN Pending Studies at Discharge: No Stand-Alone Forms: My [facility] Skilled Items Patient informed of condition?: Yes DNR: Yes Discharge Level of Care: Skilled Communicable Disease: No Discharge Prognosis: Stable Lines: None Urinary Catheter: No Medications and DC Order Prescriptions: New azithromycin 250 mg Tablet 250 mg PO Q OTHER DAY 30 Days Qty: 15 0RF Continued arformoterol 15 mcg/2 mL solution for nebulization 2 ml inhalation BID Qty: 120 3RF budesonide 0.5 mg/2 mL suspension for nebulization 0.5 mg inhalation BID Qty: 120 5RF furosemide 20 mg tablet 20 mg PO .COMPLEX Qty: 270 3RF Rx Instructions: 20 mg orally Take 2 tablets in the AM and 1 tablet in the afternoon (DME) Oxygen Home Liters Per Minute See Dose Instructions .ROUTE .MEDSUPPLY Qty: 1 Rx Instructions: As directed pantoprazole 20 mg tablet,delayed release (DR/EC) 20 mg PO DAILY ferrous sulfate [Feosol] 325 mg (65 mg iron) tablet 325 mg PO Q OTHER DAY (DME) Portable Oxygen Misc See Rx Instructions .Route Qty: 1 0RF Rx Instructions: Portable oxygen concentrator at a flow rate of 4 L/min via nasal cannula. Length of need is 99 years. ascorbic acid (vitamin C) 1,000 mg tablet 1 gm PO QAM mecobalamin (vitamin B12) 1,000 mcg tablet,chewable 1,000 mcg PO DAILY atorvastatin 20 mg tablet 20 mg PO HS metformin 1,000 mg tablet 1,000 mg PO BID nitroglycerin 0.4 mg tablet, sublingual 0.4 mg Sublingual DIRECTED PRN (Reason: Chest Pain) Rx Instructions: 1 tab sublingual every 5 minutes as needed for chest pain albuterol sulfate 90 mcg/actuation HFA aerosol inhaler 2 puff Inhalation Q4 PRN (Reason: Wheezing) aspirin 81 mg tablet,delayed release (DR/EC) 81 mg PO Q OTHER DAY Patient Comments: 81 mg PO EVERY OTHER DAY; Farxiga 10 mg tablet 10 mg PO QAM Rybelsus 14 mg tablet 14 mg PO QAM magnesium oxide 400 mg magnesium Capsule 400 mg PO BID Lokelma 5 gram powder in packet 5 g PO [id number] Rx Instructions: Patient takes on //Sat Spiriva Respimat 2.5 mcg/actuation mist 2 puff INHALATION QAM diltiazem HCl 240 mg capsule,extended release 24hr 240 mg PO BID Discontinued magnesium oxide 500 mg capsule 400 mg PO BID Discharge Orders: Discharge Order (Routine); Ordered 09/09/22 Ordered By: Florence Mcneill/Other Patient Handouts: COPD Controlled Breathing Dc Admission Data Admit Date/Time: 09/04/22 10:52 Attending Provider: Ok Gutierres Admit Provider: Amber Hairston Primary Care Provider: James Perdue Other Providers: Wu Cortez [place] ; Eitan Pulido [place] ; Erwin Quintero ; Nabeel Enrique ; Shannen Beltran ; Nakia Wells Other Interventions: Discharge Summary Assessment (RN) Last Done: 09/09/22 15:08 Supervising Physician Co-Signing Physician Notes I personally examined the patient and verified all roca points of history and exam, discussed case, and agree with decision making with Lisy Farmer MS4 no new complaints. Walking to the bathroom when I see him. Has SNF bed and insurance approvallater was able to go today.. Vitals noted, in general he is awake and alert pleasant no distress. Breathing unlabored no accessory muscle use but on baseline 4 L. No focal neurodeficits. Severe COPDdoes not really seem to have pneumonia, does not appear consistent with CHF exacerbationmostly appears to just be in a baseline variability of very severe COPD. ongoing [facility]. outpt pulmonary follow up Otherwise as above Addendum September 09, 2022 16:30 Patient was not discharged on this date 09/07/22. This discharge summary serves as the progress note for 09/07/22. The plan remains unchanged.
--- NOTE | 2022-09-07 17:01 | Billing Data ---
Date of Service September 07, 2022 Coding Level of Care Code 31127 SUB INP/OBS CARE
[2022-09-07] MEDS: ATORVASTATIN 20 MG TAB PO SCH (19:51)
[2022-09-08] MEDS: ALBUT/IPRATROP 3MG/0.5MG NEB 3 ML VIAL NEB SCH ×6 (03:07→23:05)
[2022-09-08] MEDS: FORMOTEROL 20 MCG/2 ML VIAL INH SCH ×2 (07:33→19:21)
[2022-09-08] MEDS: BUDESONIDE 0.5 MG/2 ML VIAL (PULMICORT) INH SCH ×2 (07:33→19:21)
[2022-09-08] MEDS: SODIUM CHLOR 7% 4 ML NEB NEB SCH ×2 (07:33→19:21)
[2022-09-08] MEDS: INSULIN ASPART PER UNIT CHARGE SC SCH ×4 (08:51→21:41)
[2022-09-08] MEDS: LANTUS PER UNIT CHARGE SC SCH (10:17)
[2022-09-08] MEDS: UMECLIDINIUM BROMIDE 62.5MCG/BLISTER 7 PUFFS/INHALER INH SCH (10:46)
[2022-09-08] MEDS: SODIUM ZIRCONIUM CYCLOSILICATE 10 GM PACKET PO SCH (10:47)
[2022-09-08] MEDS: HEPARIN SOD 5,000 UNIT/0.5 ML VIAL SQ SCH ×2 (10:48→19:56)
[2022-09-08] MEDS: PANTOprazole 40 MG TAB PO SCH (10:48)
[2022-09-08] MEDS: FUROSEMIDE 40 MG TAB PO SCH (10:48)
[2022-09-08] MEDS: MAGNESIUM OXIDE 400 MG TAB PO SCH ×2 (10:49→19:55)
[2022-09-08] MEDS: guaiFENesin 600 MG TABCR PO SCH ×2 (10:49→19:54)
[2022-09-08] MEDS: ASCORBIC ACID 500 MG TAB PO SCH (10:49)
[2022-09-08] MEDS: AZITHROMYCIN 250 MG TAB PO SCH (10:49)
[2022-09-08] MEDS: dilTIAZem HCL 240 MG CAPCR PO SCH ×2 (10:49→19:56)
--- NOTE | 2022-09-08 11:12 | Nephrology Progress Note ---
Date of Service September 08, 2022 Assessment & Plan (1) Chronic renal insufficiency: Plan: Creatinine approached baseline. Volume status acceptable. Medications appropriately dosed for kidney function. No ACEi due to history of angioedema and hyperkalemia. Remains on Lokelma 3 x weekly. (2) Acute and chronic respiratory failure with hypoxia: Plan: Remains on furosemide 40 mg daily with adequate diuresis. Close outpatient follow up at discharge.. Volume status improved. Dietary sodium and fluid restriction. Baseline O2 requirement 4-6 L. (3) Renal cyst: Plan: Updated CT scan reviewed this admission. Evidence of mild chronic hydronephrosis. (4) Anemia: Plan: Followed by Dr. Sam in the hematology clinic as an outpatient. Retacrit QOW. Tsat 8, ferritin 248. IV venofer 400 mg provided earlier this week. Admission and Anticipated Discharge Date Admission Date: September 04, 2022 Subjective No acute events overnight. Kristopher feels well this AM. No acute complaints. Review of Systems Review of Systems: All systems reviewed & are unremarkable except as noted in HPI & below Physical Exam Constitutional: well developed and + thin; no acute distress Eyes: + anicteric sclerae; no corneal abnormality ENMT: Mouth: oral mucous membranes not dry Neck: normal visual inspection and trachea midline Respiratory: normal respiratory effort Auscultation: lungs clear to auscultation bilaterally Cardiovascular: Rate/Rhythm: regular rate Heart Sounds: normal S1, normal S2 and + murmur Extremities: + pedal edema Musculoskeletal: Extremities: no cyanosis and no clubbing Skin: + turgor decreased; no jaundice Neurologic: Motor/Sensory: no tremor and no asterixis Psychiatric: Orientation: alert and oriented x 3 Results & Data Vital Signs (Past 12 Hours) Vital Signs Temp Pulse Resp BP Pulse Ox O2 Del Method O2 Flow Rate 09/08/22 08:00 Nasal Cannula 4 09/08/22 07:33 90 18 90 Nasal Cannula 09/08/22 07:25 36.9 C 89 16 167/71 H 92 Nasal Cannula, Oxymask 4 09/08/22 03:07 86 18 92 Nasal Cannula 4 Laboratory Results Laboratory Results - last 24 hr 09/07/22 09/07/22 09/07/22 11:20 16:22 19:57 POC Glucose 91 168 H 131 H 09/08/22 08:17 POC Glucose 134 H PG Care Time/CCT Total # of Minutes Spent Total Time Spent with Patient: Total time spent is greater than 50% in coordination of care (as documented) at patient's floor/unit and/or counseling patient: Coding Level of Care Code 96541 SUB INP/OBS CARE 3/50MIN Diagnoses Chronic renal insufficiency N18.9 Acute and chronic respiratory failure with hypoxia J96.21 Renal cyst N28.1 Anemia D64.9 Anemia type: unspecified type (4) Anemia Anemia type: unspecified type Qualified Code(s): D64.9 - Anemia, unspecified
--- NOTE | 2022-09-08 15:12 | Pharmacy Report ---
Pharmacy Glycemic Short Note 2 - Date of Service September 08, 2022 - Glycemic Short BSG Results (Last 24 hours): 09/07/22 09/07/22 09/08/22 16:22 19:57 08:17 POC Glucose 168 H 131 H 134 H 09/08/22 12:07 POC Glucose 178 H OUTPATIENT ANTIDIABETIC REGIMEN: * Farxiga 10 mg PO daily * Metformin 1 gm PO BID * Semaglutide 14 mg PO QAM HbA1c = 6.8% on 08/20/22 ASSESSMENT: 09/08: * Patient received 23 units of insulin yesterday, 15 of which were basal * Fasting 134 mg/dL this morning- continue current basal * Novolog parameters loosened yesterday, BSGs remain at goal, will continue same today 09/06 * Patient received total of 82 units of insulin yesterday, of which 20 units were basal (25 units of basal 6/4 PM) * Fasting BSG 176 mg/dL - will continue with Lantus scale of 20-25 units this AM * BSGs much improving from day prior - will scale back slightly on novolog today 09/05 * Patient received total of 125 units of insulin in addition to insulin drip yesterday. Of which, 45 units were basal insulin * Fasting BSG 228 mg/dL - anticipate improvement with blood sugars today as steroids likely wearing off now, no further steroids ordered. Will give 20 units x 1 of basal this AM and have scale for HS 0-10 units * Plan to loosen novolog parameters later today as steroids wear off 09/04 * 77 y/o M admitted for respiratory failure, CHF vs COPD exacerbation. Patient was on three different oral anti-diabetic meds at home for Type 2 diabetes. He also has history of chronic kidney disease. * Received IV Solu medrol 125 mg in ED today AM. BSG on admission was 423 mg/dl. This afternoon BSG trended up to 512 mg/dl most likely steroid induced. * Pharmacy consulted this afternoon after hospitalist ordered 10 units of IV regular insulin. Patient is known to glycemic service from recent admissions. * Novolog ordered based on stress of 3 and tighter carb ratio as his last admission in August 2022. * Basal dose of 20 units x1 given this afternoon and a dose scale added for HS based on BSG. PLAN FOR INPATIENT GLYCEMIC CONTROL: * Hold outpatient oral diabetes medications * Basal insulin * Lantus 15 units daily * Bolus insulin * NovoLog per scale ACHS or Q6hrs while NPO * Goal Range: Low 110 mg/dL - High 140 mg/dL * Correction Factor: 45 mg/dL/unit * Nutritional / Prandial insulin per carb ratio of 1 unit per 15 grams CHO consumed
--- NOTE | 2022-09-08 16:38 | Hospitalist Progress Note ---
Date of Service September 08, 2022 Assessment & Plan (1) Acute and chronic respiratory failure with hypoxia: (2) COPD, severe: (3) CKD (chronic kidney disease) stage 3, GFR 30-59 ml/min: (4) DM type 2 (diabetes mellitus, type 2): (5) WENDY (obstructive sleep apnea): (6) Pneumonia: (7) CROWE (dyspnea on exertion): (8) Chronic renal insufficiency: (9) Anemia: (10) Coronary artery disease: (11) Mass of upper lobe of left lung: Gail Summers is a 77 y/o M with PMHx of COPD with chronic hypoxemic respiratory failure (4L O2 requirement), WENDY (not using CPAP), CKD III, CAD, SVT, DM II, HTN, HLD and anemia who presented to the ED on 09/04/22 with SOB. He was discharged on 08/23/22 on Cefdinir and predinose taper. In 05/2022 he had ESBL bacteremia secondary to suspected cholangitis, which was sensitive to Ertapenem/Augmentin. #COPD, Gold E Class IV Gold E, class IV, on 4L oxygen at home Infectious workup negative Imaging suggested COPD as opposed to other entities. Pulmonary also saw the patient and agreed. Recommended Flutter valve and hypertonic saline when appropriate. No indication for steroids. Azithromycin 250mg PO three days/week #Acute on chronic diastolic CHF BNP mildly elevated at 141 on admission. Cardio input appreciated - SOB unlikely cardiac in origin. Echo 09/05/22: EF 60-65%, no wall motion abnormalities, moderate concentric LVH. Mildly dilated RV, RA. Moderate pulmonary HTN (RVSP 53mmHg, ~stable from 40-50 mmHg on 07/27/21). Very small pericardial effusion along RV. Continue home Lasix 60mg (40mg in the AM, 20mg PO in the PM) Kidney function near baseline *anaphylactic reaction to ALYSSA-inhibitors Discussed dietary salt consumption #Mass of upper lobe of left lung CT 08/19/22: parahilar left upper lobe measuring 3.7 x 4.3 x 5.4 cm, spiculated lesion of the lingula Not pursuing bronchoscopy at this time Appreciate pulm/palliative input #DM2 Glucose to ~400s on admission. HgbA1C 8.0% Continue home meds: Metformin 1gm BID, dapagliflozin, semaglutide #Elevated troponin Mildly elevated and downtrended. Suspect secondary to pulmonary HTN/RV strain #CKD stage III Kidney function at baseline. Follows with Dr. Quintero as an outpatient. On Lokelma 3x/week Electrolytes stable Nephro input appreciated #chronic anemia, normocytic Hgb stable Continue iron every other day Nephrology input appreciated #Hypertension Continue Lasix as above and diltiazem 240 mg PO BID #CAD Cath 2014: multivessel disease Aspirin 81 mg PO q other day, atorvastatin 20mg PO qHS #WENDY Not using CPAP at home Appreciate pulm input: BiPAP 12/8 nightly and PRN FENGI: carb consistent/heart healthy DVT ppx: heparin SQ Dispo: care home facility, [facility] Full code Admission and Anticipated Discharge Date Admission Date: September 04, 2022 Supervising Physician Co-Signing Physician Notes I personally examined the patient and verified all roca points of history and exam, discussed case, and agree with decision making with Lisy Farmer MS4 no new complaints. awaiting approval for SNF. Vitals noted, in general he is awake and alert pleasant no distress. Breathing unlabored no accessory muscle use but on baseline 4 L. No focal neurodeficits. Severe COPDdoes not really seem to have pneumonia, does not appear consistent with CHF exacerbationmostly appears to just be in a baseline variability of very severe COPD. Continue inhalers, continue azithromycinwith intent for chronic end-stage COPD type management. PT/OT eval and treat. [facility] once they are able to accept him. Otherwise as above Subjective Kristopher is stable. No acute events overnight. He was sitting up eating his breakfast. He is awaiting transfer to [facility]. Remains dyspneic on exertion without new oxygen requirements, still requiring 4L. No fevers, chills, chest pain, palpitations, nausea or vomiting. No new concerns. Review of Systems Review of Systems: All systems reviewed & are unremarkable except as noted in HPI & below Physical Exam Physical Exam: Appearance: sitting upright in bed, NAD Respiratory: 4L nasal cannula, no conversational dyspnea, +expiratory wheeze in the lung bases bilaterally, no crackles Cardiovascular: normal S1, S2, no appreciable murmurs, extremities well perfused, no cyanosis Gastrointestinal (Abdomen): active bowel sounds without pain/rebound/guarding to palpation Neurologic: answering questions appropriately Lymphatic: mild pitting edema in the lower extremities bilaterally without erythema Results & Data Results & Data Vital Signs (Past 12 Hours) Vital Signs Temp Pulse Resp BP Pulse Ox Pulse Ox O2 Del Method 09/08/22 15:29 37 C 87 16 151/67 H 91 Nasal Cannula 09/08/22 15:06 92 H 20 90 Nasal Cannula 09/08/22 08:00 92 09/08/22 14:46 91 09/08/22 12:07 91 H 19 88 L Nasal Cannula 09/08/22 08:00 Nasal Cannula 09/08/22 07:33 90 18 90 Nasal Cannula 09/08/22 07:25 36.9 C 89 16 167/71 H 92 Nasal Cannula, Oxymask O2 Del Method O2 Flow Rate O2 Flow Rate 09/08/22 15:29 4 09/08/22 15:06 5 09/08/22 08:00 Nasal Cannula 4 09/08/22 14:46 Nasal Cannula 5 09/08/22 12:07 5 09/08/22 08:00 4 09/08/22 07:33 09/08/22 07:25 4 (4) DM type 2 (diabetes mellitus, type 2) Diabetes mellitus complication status: without complication Diabetes mellitus manager long term care insulin use: without halfway use Qualified Code(s): E11.9 - Type 2 diabetes mellitus without complications (9) Anemia Anemia type: unspecified type Qualified Code(s): D64.9 - Anemia, unspecified (10) Coronary artery disease Associated angina: without angina Coronary Disease-Associated Artery/Lesion type: [place] artery [place] vs. transplanted heart: [place] heart Qualified Code(s): I25.10 - Atherosclerotic heart disease of [place] coronary artery without angina pectoris
--- NOTE | 2022-09-08 17:47 | Billing Data ---
Date of Service September 08, 2022 Coding Level of Care Code 70682 SUB INP/OBS CARE
[2022-09-08] MEDS: ATORVASTATIN 20 MG TAB PO SCH (19:55)
[2022-09-09] MEDS: ALBUT/IPRATROP 3MG/0.5MG NEB 3 ML VIAL NEB SCH ×3 (02:15→11:15)
[2022-09-09] MEDS: FORMOTEROL 20 MCG/2 ML VIAL INH SCH (07:20)
[2022-09-09] MEDS: SODIUM CHLOR 7% 4 ML NEB NEB SCH (07:21)
[2022-09-09] MEDS: BUDESONIDE 0.5 MG/2 ML VIAL (PULMICORT) INH SCH (07:21)
[2022-09-09] MEDS: ASPIRIN 81 MG ECTAB PO SCH (08:16)
[2022-09-09] MEDS: FUROSEMIDE 40 MG TAB PO SCH (08:16)
[2022-09-09] MEDS: dilTIAZem HCL 240 MG CAPCR PO SCH (08:16)
[2022-09-09] MEDS: guaiFENesin 600 MG TABCR PO SCH (08:17)
[2022-09-09] MEDS: AZITHROMYCIN 250 MG TAB PO SCH (08:17)
[2022-09-09] MEDS: ASCORBIC ACID 500 MG TAB PO SCH (08:17)
[2022-09-09] MEDS: MAGNESIUM OXIDE 400 MG TAB PO SCH (08:17)
[2022-09-09] MEDS: PANTOprazole 40 MG TAB PO SCH (08:17)
[2022-09-09] MEDS: UMECLIDINIUM BROMIDE 62.5MCG/BLISTER 7 PUFFS/INHALER INH SCH (08:19)
[2022-09-09] MEDS: HEPARIN SOD 5,000 UNIT/0.5 ML VIAL SQ SCH ×2 (08:19→08:50)
[2022-09-09] MEDS: INSULIN ASPART PER UNIT CHARGE SC SCH ×2 (08:30→12:36)
[2022-09-09] MEDS: LANTUS PER UNIT CHARGE SC SCH (08:30)
[2022-09-09 10:30] LABS: Albumin Level 2.9 gm/dl (3.4-5.0); BUN Creatinine Ratio 28.3 (10-20); Calcium 8.2 mg/dl (8.6-10.3); Creatinine Clr Calc Pharmacy 38.4 ml/min; Est GFR (Non-African American) 39.7 ml/min; Phosphorus 2.8 mg/dl (2.5-4.9); Potassium 4.1 mmol/L (3.5-5.1)
--- NOTE | 2022-09-09 12:01 | Nephrology Progress Note ---
Date of Service September 09, 2022 Assessment & Plan (1) Chronic renal insufficiency: Plan: Creatinine approached baseline. Volume status acceptable. Medications appropriately dosed for kidney function. No ACEi due to history of angioedema and hyperkalemia. Remains on Lokelma 3 x weekly. Repeat serum metabolic profile in 1 week. Follow up with me in the nephrology clinic within 2 weeks. (2) Acute and chronic respiratory failure with hypoxia: Plan: Continue furosemide 40 mg daily. Monday daily weights. Dietary sodium and fluid restriction. (3) Renal cyst: Plan: Updated CT scan reviewed during admission. Mild chronic hydronephrosis. (4) Anemia: Plan: Followed by Dr. Sam in the hematology clinic as an outpatient. Retacrit QOW. IV venofer 400 mg provided during admission. Admission and Anticipated Discharge Date Admission Date: September 04, 2022 Subjective No acute events overnight. Anticipated discharge today. Breathing relatively comfortably. LE edema continues to improve. Review of Systems Review of Systems: All systems reviewed & are unremarkable except as noted in HPI & below Physical Exam Constitutional: well developed, + thin and + frail appearing; no acute distress Eyes: + anicteric sclerae; no corneal abnormality ENMT: Mouth: no oral mucosal abnormality and oral mucous membranes not dry Respiratory: normal respiratory effort Cardiovascular: Rate/Rhythm: regular rate Heart Sounds: normal S1 and normal S2 Extremities: + pedal edema Musculoskeletal: Extremities: no cyanosis and no clubbing Skin: + turgor decreased; no jaundice Neurologic: Motor/Sensory: no tremor and no asterixis Psychiatric: Orientation: alert and oriented x 3 Results & Data Vital Signs (Past 12 Hours) Vital Signs Temp Pulse Pulse Resp BP Pulse Ox O2 Del Method 09/09/22 11:00 09/09/22 11:15 89 18 90 Nasal Cannula 09/09/22 07:30 37.4 C 80 20 163/68 H 98 Room Air 09/09/22 07:20 Nasal Cannula 09/09/22 07:21 90 18 91 Nasal Cannula 09/09/22 02:15 89 90 Nasal Cannula O2 Flow Rate 09/09/22 11:00 4 09/09/22 11:15 5 09/09/22 07:30 09/09/22 07:20 4 09/09/22 07:21 6 09/09/22 02:15 6 Laboratory Results Laboratory Results - last 24 hr 09/08/22 09/08/22 09/08/22 12:07 17:02 20:16 Sodium Potassium Chloride Carbon Dioxide Anion Gap BUN Creatinine Est Cr Clr Drug Dosing Est GFR ( Amer) Est GFR (Non-Af Amer) BUN/Creatinine Ratio Glucose POC Glucose 178 H 235 H 100 H Calcium Phosphorus Albumin SARS-CoV-2, RNA, NAAT 09/09/22 09/09/22 09/09/22 08:07 09:18 Unknown Sodium 133 L Potassium 4.1 Chloride 96 L Carbon Dioxide 31 Anion Gap 6 BUN 47 H Creatinine 1.66 H Est Cr Clr Drug Dosing 38.4 Est GFR ( Amer) 46.0 Est GFR (Non-Af Amer) 39.7 BUN/Creatinine Ratio 28.3 H Glucose 231 H POC Glucose 137 H Calcium 8.2 L Phosphorus 2.8 Albumin 2.9 L SARS-CoV-2, RNA, NAAT NEGATIVE PG Care Time/CCT Total # of Minutes Spent Total Time Spent with Patient: Total time spent is greater than 50% in coordination of care (as documented) at patient's floor/unit and/or counseling patient: Coding Level of Care Code 14756 SUB INP/OBS CARE 3/50MIN Diagnoses Chronic renal insufficiency N18.9 Acute and chronic respiratory failure with hypoxia J96.21 Renal cyst N28.1 Anemia D64.9 Anemia type: unspecified type (4) Anemia Anemia type: unspecified type Qualified Code(s): D64.9 - Anemia, unspecified
--- NOTE | 2022-09-09 16:32 | Discharge Summary ---
Date of Service September 09, 2022 Admission HPI Per Admitting Provider 77yo male with significant PMHx for severe COPD with chronic hypoxemic respiratory failure on 4L O2 at baseline (prior was on 3L), WENDY (not using CPAP), CAD, SVT, DM II, HTN, HLD, CKD III, anemia presented to ER with EMS for shortness of breath similar to recent admission and discharge on 08/23 with abx for coverage for pneumonia with cefdinir and prednisone taper. Also admitted in Feb for elevated LFTs and found to have ESBL bacteremia, sensitive to Ertapenem/Augmentin and was suspected due to a suspected stone passing/cholangitis. Com[place] through [facility] [place]. Last admission, NPO for possible bronch for concerns lung cancer given mass. Last pulm note states f/u CT 6 weeks outpatient setting and eval for bronch eval at that time. Patient was seen in room B4B, he is currently eating lunch. Reports he completed his course of steroids and antibiotics this past monday/ and was feeling slightly improved but increased swelling/shortness of breath, cough but without sputum production. No fevers/chills. BSG elevation but typically he notes he is in the 130-150s range at home on his usual antibiotics. He denies any abdominal pain/nausea/vomiting. He notes the swelling in his legs was getting a little better but now much worse. No calf pain. Discussed I believe he has a little bit of heart failure contributing to his symptoms. Elevated troponin but denies any chest pain. Renal function elevated but not dehydrated on exam, and follows with Dr Quintero typically. No palpitations reported. No urinary symptoms at present, clear urine. O2 sats in 70s w/ EMS, given Duoneb -- CXR about the same but some possible fluid overload component. Given Duoneb x 1, cefepime IV. BSGs to 400s in DM II patient, high for him, and given 4u insulin. CXR w/ Patchy bibasilar and left midlung airspace opacities are suggestive of pneumonia, similar in appearance to the study from 08/19/2022. Spiculated lesion of the lingula is better seen on the comparison chest CT. Severe pulmonary emph ysema. Discussed admission for eval/management respiratory failure/diuretics, ECHO to eval valvular heart disease, suspected CHF. He takes Lasix 40mg PO in the AM, 20mg PO PM at baseline but reports he doesn't check his weights at home. Discussed CHF vs cards consult pending echo/response. Weight 75.7kg on admit in August, discharged at 85.3kg -- discharged on increased O2 to 4L from his baseline 3L and is on 6L Oxymask at present, breathing comfortably and eating lunch. Currently weight 82kg. Will give dose IV lasix 40mg at present and monitor response and repeat labs this evening/additional dosing based on output. Daughter works in [employer]/onc at [employer] if needed to contact for any reason. Admission Exam Per Admitting Provider General: chronically ill appearing male, sitting up in bed, NAD eating lunch Resp: diminished in the bases, expiratory wheezing, bibasilar crackles, on 6-7L Oxymask to maintain saturations CV: regular rate/rhtyhm, no significant m/r/g, 3-4+ pitting edema bilateral LE, calves nontender, pulses palpable GI: +BS, slight distension, +edema, nontender, no guarding/rebound : no santos MSK/Neuro: no focal deficit, no slurred speech, no confusion, generalized weakness throughout Psych: AOx3, cooperative with exam Principal Diagnosis COPD exacerbation Discharge Exam Appearance: sitting upright in bed, NAD Respiratory Nasal cannula No conversational dyspnea Expiratory wheeze in lung bases Cardiovascular Normal S1, S2, no appreciable murmurs Extremities warm No cyanosis +mild pitting edema in lower extremities bilaterally Gastrointestinal (Abdomen) active bowel sounds, no pain/rebound/guarding to palpation Neurologic Alert, answering questions appropriately Discharge Data Allergies Allergy/AdvReac Type Severity Reaction Status Date / Time ALYSSA Inhibitors Allergy Severe ANAPHYLAXIS Verified 09/04/22 10:18 Consultations 09/04/22 09:55 ED Decision to Admit Stat 09/04/22 13:03 Consult Pulmonology Routine 09/04/22 19:06 Consult Nephrology Routine 09/05/22 09:16 Consult Cardiology Routine 09/05/22 11:24 Consult Palliative Care Routine Hospital Course (1) Acute and chronic respiratory failure with hypoxia: (2) COPD, severe: (3) CKD (chronic kidney disease) stage 3, GFR 30-59 ml/min: (4) DM type 2 (diabetes mellitus, type 2): (5) WENDY (obstructive sleep apnea): (6) Pneumonia: (7) CROWE (dyspnea on exertion): (8) Chronic renal insufficiency: (9) Anemia: (10) Coronary artery disease: (11) Mass of upper lobe of left lung: Gail Summers is a 77 y/o M with PMHx of COPD with chronic hypoxemic respiratory failure (4L O2 requirement), WENDY (not using CPAP), CKD III, CAD, SVT, DM II, HTN, HLD and anemia who presented to the ED on 09/04/22 with SOB. He was discharged on 08/23/22 on Cefdinir and predinose taper. In 05/2022 he had ESBL bacteremia secondary to suspected cholangitis, which was sensitive to Ertapenem/Augmentin. #COPD, Gold E Class IV Gold E, class IV, on 4L oxygen at home Infectious workup negative Imaging suggested COPD as opposed to other entities. Pulmonary also saw the patient and agreed. Recommended Flutter valve and hypertonic saline when appropriate. No indication for steroids. Azithromycin 250mg PO three days/week #Acute on chronic diastolic CHF BNP mildly elevated at 141 on admission. Cardio input appreciated - SOB unlikely cardiac in origin. Echo 09/05/22: EF 60-65%, no wall motion abnormalities, moderate concentric LVH. Mildly dilated RV, RA. Moderate pulmonary HTN (RVSP 53mmHg, ~stable from 40- 50mmHg on 07/27/21). Very small pericardial effusion along RV. Continue home Lasix 60mg (40mg in the AM, 20mg PO in the PM) Kidney function near baseline *anaphylactic reaction to ALYSSA-inhibitors Discussed dietary salt consumption #Mass of upper lobe of left lung CT 08/19/22: parahilar left upper lobe measuring 3.7 x 4.3 x 5.4 cm, spiculated lesion of the lingula Not pursuing bronchoscopy at this time Appreciate pulm/palliative input #DM2 Glucose to ~400s on admission. HgbA1C 8.0% Continue home meds: Metformin 1gm BID, dapagliflozin, semaglutide #Elevated troponin Mildly elevated and downtrended. Suspect secondary to pulmonary HTN/RV strain #CKD stage III Kidney function at baseline. Follows with Dr. Quintero as an outpatient. On Lokelma 3x/week Electrolytes stable Nephro input appreciated #chronic anemia, normocytic Hgb stable Continue iron every other day Nephrology input appreciated #Hypertension Continue Lasix as above and diltiazem 240 mg PO BID #CAD Cath 2014: multivessel disease Aspirin 81 mg PO q other day, atorvastatin 20mg PO qHS #WENDY Not using CPAP at home Appreciate pulm input: BiPAP 12/8 nightly and PRN FENGI: carb consistent/heart healthy DVT ppx: heparin SQ Dispo: [facility] facility Full code Total Time Total Time Spent Total Time Spent (In Minutes): <30 Discharge Plan Discharge Items Patient Disposition: Transfer Care Home Fac Reason For Visit: RESPIRATORY FAILURE, SUSPECTED CHF VS COPD EXAC Discharge Diagnosis: End stage COPD Activity: Resume your previous activity Non-emergency contact: Primary Care Provider Call non-emergency contact if: your symptoms worsen, you have a fever and your temperature is above 101 Follow-up/Referrals: James Perdue MD [Primary Care Provider] - Diet: Carb Consistent or DM2 and Heart Healthy Addtl Attending Provider Instructions: Kristopher is a 77 y/o M with PMHx of COPD with chronic hypoxemic respiratory failure (4L O2 requirement), WENDY (not using CPAP), CKD III, CAD, SVT, DM II, HTN, HLD and anemia who presented to the ED on 09/04/22 with SOB. He was discharged on 08/23/22 on Cefdinir and predinose taper. In 05/2022 he had ESBL bacteremia secondary to suspected cholangitis, which was sensitive to Ertapenem/Augmentin. #COPD, Gold E Class IV Gold E, class IV, on 4L oxygen at home Infectious workup negative Imaging suggested COPD as opposed to other entities. Pulmonary also saw the patient and agreed. Recommended Flutter valve and hypertonic saline when appropriate. No indication for steroids . Started Azithromycin 250mg PO three days/week as prophylaxis of COPD exacerbation #Acute on chronic diastolic CHF BNP mildly elevated at 141 on admission. Cardio input appreciated - SOB unlikely cardiac in origin. Echo 09/05/22: EF 60-65%, no wall motion abnormalities, moderate concentric LVH. Mildly dilated RV, RA. Moderate pulmonary HTN (RVSP 53mmHg, ~stable from 40- 50mmHg on 07/27/21). Very small pericardial effusion along RV. Continue home Lasix 60mg (40mg in the AM, 20mg PO in the PM) Kidney function near baseline *anaphylactic reaction to ALYSSA-inhibitors Discussed dietary salt consumption #Mass of upper lobe of left lung CT 08/19/22: parahilar left upper lobe measuring 3.7 x 4.3 x 5.4 cm, spiculated lesion of the lingula Not pursuing bronchoscopy at this time Discussed with pulm and palliative #DM2 Glucose to ~400s on admission. HgbA1C 8.0% Continue home meds: Metformin 1gm BID, dapagliflozin, semaglutide #Elevated troponin Mildly elevated and downtrended. Suspect secondary to pulmonary HTN/RV strain #CKD stage III Kidney function at baseline. Follows with Dr. Quintero as an outpatient. On Lokelma 3x/week Electrolytes stable Nephro consulted #chronic anemia, normocytic Hgb stable Continue iron every other day Nephrology consulted #Hypertension Continue Lasix as above and diltiazem 240 mg PO BID #CAD Cath 2014: multivessel disease Aspirin 81 mg PO q other day, atorvastatin 20mg PO qHS #WENDY Not using CPAP at home consulted pulm : BiPAP 12/8 nightly and PRN Pending Studies at Discharge: No Stand-Alone Forms: My [facility] Skilled Items Patient informed of condition?: Yes DNR: Yes Discharge Level of Care: Skilled Communicable Disease: No Discharge Prognosis: Stable Lines: None Urinary Catheter: No Medications and DC Order Prescriptions: New azithromycin 250 mg Tablet 250 mg PO Q OTHER DAY 30 Days Qty: 15 0RF Continued arformoterol 15 mcg/2 mL solution for nebulization 2 ml inhalation BID Qty: 120 3RF budesonide 0.5 mg/2 mL suspension for nebulization 0.5 mg inhalation BID Qty: 120 5RF furosemide 20 mg tablet 20 mg PO .COMPLEX Qty: 270 3RF Rx Instructions: 20 mg orally Take 2 tablets in the AM and 1 tablet in the afternoon (DME) Oxygen Home Liters Per Minute See Dose Instructions .ROUTE .MEDSUPPLY Qty: 1 Rx Instructions: As directed pantoprazole 20 mg tablet,delayed release (DR/EC) 20 mg PO DAILY ferrous sulfate [Feosol] 325 mg (65 mg iron) tablet 325 mg PO Q OTHER DAY (DME) Portable Oxygen Misc See Rx Instructions .Route Qty: 1 0RF Rx Instructions: Portable oxygen concentrator at a flow rate of 4 L/min via nasal cannula. Length of need is 99 years. ascorbic acid (vitamin C) 1,000 mg tablet 1 gm PO QAM mecobalamin (vitamin B12) 1,000 mcg tablet,chewable 1,000 mcg PO DAILY atorvastatin 20 mg tablet 20 mg PO HS metformin 1,000 mg tablet 1,000 mg PO BID nitroglycerin 0.4 mg tablet, sublingual 0.4 mg Sublingual DIRECTED PRN (Reason: Chest Pain) Rx Instructions: 1 tab sublingual every 5 minutes as needed for chest pain albuterol sulfate 90 mcg/actuation HFA aerosol inhaler 2 puff Inhalation Q4 PRN (Reason: Wheezing) aspirin 81 mg tablet,delayed release (DR/EC) 81 mg PO Q OTHER DAY Patient Comments: 81 mg PO EVERY OTHER DAY; Farxiga 10 mg tablet 10 mg PO QAM Rybelsus 14 mg tablet 14 mg PO QAM magnesium oxide 400 mg magnesium Capsule 400 mg PO BID Lokelma 5 gram powder in packet 5 g PO [id number] Rx Instructions: Patient takes on //Sat Spiriva Respimat 2.5 mcg/actuation mist 2 puff INHALATION QAM diltiazem HCl 240 mg capsule,extended release 24hr 240 mg PO BID Discontinued magnesium oxide 500 mg capsule 400 mg PO BID Discharge Orders: Discharge Order (Routine); Ordered 09/09/22 Ordered By: Florence Mcneill/Other Patient Handouts: COPD Controlled Breathing Dc Admission Data Admit Date/Time: 09/04/22 10:52 Attending Provider: Ok Gutierres Admit Provider: Amber Hairston Primary Care Provider: James Perdue Other Providers: Wu Cortez at [place] ; Eitan Pulido ; Louie Atwood ; Erwin Quintero ; Nabeel Enrique ; Shannen Beltran ; Nakia Wells Other Interventions: Discharge Summary Assessment (RN) Last Done: 09/09/22 15:08 Supervising Physician Co-Signing Physician Notes I personally examined the patient and verified all roca points of history and exam, discussed case, and agree with decision making with Lisy Farmer MS4 no new complaints. Walking to the bathroom when I see him. Has SNF bed and insurance approvallater was able to go today.. Vitals noted, in general he is awake and alert pleasant no distress. Breathing unlabored no accessory muscle use but on baseline 4 L. No focal neurodeficits. Severe COPDdoes not really seem to have pneumonia, does not appear consistent with CHF exacerbationmostly appears to just be in a baseline variability of very severe COPD. ongoing care at [facility]. outpt pulmonary follow up Otherwise as above
--- NOTE | 2022-09-09 18:40 | Billing Data ---
Date of Service September 09, 2022 Coding Level of Care Code 21959 IN/OBS DISCH 30 MIN/LESS
== END 2022-09-09 15:44 | DRG 190 ==
LOC: ED 07:49 → SUATTDRO 10:52 → 2S 10:52 → 3W 09-07 21:05

== ENCOUNTER 2022-09-16 22:45 | Inpatient (IN) ==
[2022-09-16] MEDS ORDERED: LORazepam 2 MG/1 ML VIAL IV STA (23:11)
[2022-09-16 23:42] LABS: Basophils # (auto) 0.02 K/uL (0-0.2); Basophils % (auto) 0.2 %; Eosinophils # (auto) 0.14 K/uL (0-0.50); Eosinophils % (auto) 1.4 %; Hematocrit (blood only) 31.3 % (42.0-52.0); Hemoglobin 9.5 g/dl (14.0-18.0); Immature Granulocytes # (auto) 0.08 K/uL (0.01-0.20); Immature Granulocytes % (auto) 0.8 %; Mean Corpuscular Hemoglobin 27.1 pg (25.0-34.0); Mean Corpuscular Hgb Conc 30.4 g/dL (32.0-36.0); Mean Corpuscular Volume 89.4 fL (80.0-100.0); Mean Platelet Volume 9.8 fL (9.4-12.4); Monocytes # (auto) 0.64 K/uL (0.11-0.59); Monocytes % (auto) 6.4 %; Neutrophils # (auto) 8.32 K/uL (1.40-6.50); Neutrophils % (auto) 83.2 %; Platelet Count 400 K/uL (130-400); RDW Coefficient of Variation 17.7 % (11.5-14.5); RDW Standard Deviation 57.8 fL (36.4-46.3)
[2022-09-16 23:58] LABS: Albumin Globulin Ratio 0.9 (0.9-2); Bilirubin,Total 0.3 mg/dl (0.2-1.0); Calcium 8.4 mg/dl (8.6-10.3); Creatinine Clr Calc Pharmacy 35.3 ml/min; Est GFR (African American) 41.5 ml/min; Est GFR (Non-African American) 35.8 ml/min; Globulin 3.4 gm/dl (2.5-4.0); Magnesium 2.2 mg/dl (1.7-2.4); Potassium 4.8 mmol/L (3.5-5.1); Total Protein 6.4 gm/dl (6.0-8.3)
[2022-09-17] MEDS ORDERED: CEFEPIME 2,000 MG/20 ML VIAL IV STA (00:27)
[2022-09-17] MEDS ORDERED: SODIUM CHLORIDE 0.9% 1000ML 1,000 ML IV SCH (00:30)
[2022-09-17 00:40] LABS: INR 1.1 (0.9-1.1); Prothrombin Time 11.9 Seconds (9.0-12.0)
[2022-09-17] MEDS ORDERED: OPTIRAY 320 125ml IV ONE (00:45)
--- NOTE | 2022-09-17 01:01 | Emergency Department Note ---
Impression & Plan Dyspnea, Hypoxia, Severe chronic obstructive pulmonary disease, Anemia, Pneumonia, CKD (chronic kidney disease) ED Provider Note ED Provider Note NAME: JENNYFER CHAVIS Jr AGE:77 SEX: Male : 1945 ARRIVES VIA: EMS INFORMANT: Patient, family ED PROVIDER(s): Shannen Guzman DO CHIEF COMPLAINT: Increased trouble breathing, hypoxia HPI: This is a 77-year-old male presents via EMS from a local facility due to concern for increased trouble breathing and hypoxia. Patient does have a history of COPD and a recently diagnosed lung mass. He does wear oxygen chronically. He states he had been wearing 4 L via nasal cannula, and over the last week has required more. He states he was seen and evaluated here last week for increased trouble breathing. He states he was then bumped to 6 to 8 L, and now in the last 3 to 4 days has required 10 L/min via nasal cannula. He states he has been less active as movement and activity worsen his breathing also. He denies fevers, chills, worsening cough, or change in sputum. He denies chest pain, abdominal pain, nausea, vomiting, or diarrhea. Patient does use a diuretic and does have lower extremity edema. He states he has been using his inhalers and nebulizer treatments as prescribed. EMS reported patient was given 3 DuoNeb treatments by staff at the facility prior to their arrival, EMS gave Solu-Medrol in route additionally. Patient states he does not wish to use CPAP/BiPAP as they have tried this before. Patient also with cardiac history per his report. Daughter states he does typically take a diuretic. Family reports recent diagnosis of lung cancer, and given recent worsening episodes and recurrent infection, they have begun to discuss a more palliative approach. PAST MEDICAL HISTORY:See Below PAST SURGICAL HISTORY:See Below FAMILY HISTORY:See Below SOCIAL HISTORY:See Below HOME MEDICATIONS:See Below ALLERGIES:See Below VITALS:See Below PHYSICAL EXAMINATION: GENERAL: alert, unwell appearing, well nourished, no distress, non-toxic EYE EXAM: normal conjunctiva, PERRL and EOM's grossly intact OROPHARYNX: no exudate, no erythema, lips, buccal mucosa, and tongue normal and mucous membranes are moist NECK: supple, no nuchal rigidity, no adenopathy, non-tender LUNGS: Decreased to auscultation. Normal chest wall mechanics, no faint expiratory wheeze bilaterally, tachypnea, increased work of breathing HEART: no murmurs, S1 normal and S2 normal ABDOMEN: abdomen soft, non-tender, normo-active bowel sounds, no masses, no rebound or guarding. BACK: Back is symmetrical on inspection and there is no deformity, no midline tenderness, no CVA tenderness. SKIN: no rashes, petechiae, orbruising UPPER EXTREMITIES: upper extremities are grossly normal. FROM, nml pulses b/l. LOWER EXTREMITIES: 1+ b/l LE pitting edema. FROM, nml pulses b/l. NEURO EXAM: Normal sensorium, cranial nerves II-XII grossly intact, normal spee ch, no facial droop,nogross weakness of arms, no gross weakness of legs. Gross sensation intact. No ataxia. Vital Signs: reviewed and remarkable Differential Diagnosis: COPD exacerbation, pneumonia, pleural effusion, increased tumor burden, CHF, ACS, PE, URI, as well as others were considered MEDICAL DECISION MAKING: This is a 77-year-old male who presents with dyspnea and notable hypoxia. He was noted to have increased work of breathing and was placed by staff in room B1. Patient was afebrile, noted to be tachycardic and tachypneic but otherwise hemodynamically stable. Patient's oxygen via nonrebreather was turned up to 15 order to maintain oxygen saturations between 88 and 90%. Patient with significant prior pulmonary history. Labs drawn and sent, IV established, EKG and chest x-ray performed at bedside and interpreted by me, patient monitored on telemetry. Chest x-ray appeared worse compared to that of 10 days ago. Given patient had just received 3 DuoNeb treatments and Solu-Medrol, patient was given a small dose of IV Ativan which helped to markedly improve his symptoms. He maintained his oxygen saturations on the nonrebreather. Given recent diagnosis of malignancy as well as recent sedentary lifestyle, we also discussed repeat CT imaging to better diagnose the chest x-ray findings as well as rule out PE. Patient and family verbalized understanding were in agreement. Patient's cr eatinine slightly elevated compared to prior. Patient noted to be anemic although this appears stable compared to prior. Case discussed with hospitalist for additional evaluation and management. I did discuss with patient and family their plans moving forward and they have began to discuss the option of palliative care. No formal arrangements or consultation have been made yet. Consultation(s): 0122: Discussed with Dr. Jean. ER Treatment Provided: See below Diagnostics Interpreted By Me: -ECG: Sinus tachycardia 118, rightward axis, normal intervals, nonspecific ST/T wave changes -Cardiac Monitoring: An order was placed for continuous cardiac monitoring. The monitor shows a rate of 122 with sinus tachycardia rhythm. -Laboratory studies: As stated above and show below. -Imaging studies: X-ray Chest: A single view study of the chest was reviewed and was negative for cardiomegaly, effusion, or wide mediastinum. Increased interstitial markings bilaterally predominantly in the bilateral lower lobes, no focal consolidation. Triage Nursing Note Reviewed Prior/Outside Records Reviewed Procedures: [] Critical Care: Critical care of 39 min performed to assess and manage high likelihood of life- threatening dyspnea and hypoxia, involving labs and imaging performed with assessment to evaluate dyspnea and hypoxia diagnosis with frequent reassessment. This time includes bedside time, treatment discussions with patient/fa edita/consultants, documentation time and excludes procedure time. Past Med/Surg History Medical History Abnormal CT scan, chest BPH with obstruction/lower urinary tract symptoms CAD (coronary artery disease) CKD (chronic kidney disease) stage 3, GFR 30-59 ml/min COPD (chronic obstructive pulmonary disease) not well controlled per pt > worse this time of year with humidity DM type 2 (diabetes mellitus, type 2) NIDDM Goals of care, counseling/discussion H/O pulmonary emphysema History of arthritis History of cardioversion 2009> SVT History of heart attack pt unaware of this History of nicotine dependence Hyperlipidemia Hypertension Hypomagnesemia Iron deficiency anemia due to chronic blood loss Multiple pulmonary nodules determined by computed tomography of lung On home oxygen therapy 3 LPM continuous WENDY (obstructive sleep apnea) no cpap > O2 continuous Peripheral neuropathy Pneumonia Apr 2019 Pulmonary air trapping Pulmonary air trapping Renal cyst just monitoring Renal cyst SVT (supraventricular tachycardia) dx 2009> diltiazem for this > controlled Surgical History History of bone marrow biopsy July 2019 > checking due to anemia History of cardiac cath 2009 > no stents History of colonoscopy History of esophagogastroduodenoscopy (EGD) History of nasal surgery Status post cataract extraction of both eyes with insertion of intraocular lens [place] teeth extracted Family History Father Diabetes Mother Diabetes Hypertension Other Brain tumor Depression Stroke Social History Smoking Status: Former smoker Tobacco Type: Cigarettes Age Started Using Tobacco: 20; packs per day: 1.0; Second Hand Exposure: No; Do You Dip or Chew Tobacco: No; Hx Alcohol Use: No Hx Substance Use: No Preferred Language: Uzbek Communication Ability: Effective Motorcycle Assembler Required: No Beliefs That Will Affect Care: None Current Living Situation: Alone Current Living Situation Comment: home alone Other Information That Helps Us Care for You: No Feels Safe at Home: Yes Safety Concerns: Feels Safe At This Time Assistive Devices: Oxygen - Continuous Allergies Allergies Allergy/AdvReac Type Severity Reaction Status Date / Time ALYSSA Inhibitors Allergy Severe ANAPHYLAXIS Verified 09/04/22 10:18 Home Meds Home Medications Medication Instructions Recorded Confirmed albuterol sulfate 90 mcg/actuation 2 puff inhalation Q4 PRN Wheezing 12/14/17 09/16/22 aerosol inhaler atorvastatin 20 mg tablet 20 mg PO HS 12/14/17 09/16/22 metformin 1,000 mg tablet 1,000 mg PO BID 12/14/17 09/16/22 nitroglycerin 0.4 mg sublingual 0.4 mg sublingual DIRECTED PRN 12/14/17 09/16/22 tablet Chest Pain Oxygen Home #1 ea 11/13/18 06/17/22 aspirin 81 mg tablet,delayed 81 mg PO Q OTHER DAY 11/27/18 09/16/22 release ascorbic acid (vitamin C) 1,000 mg 1 gm PO QAM 06/05/19 09/16/22 tablet tiotropium bromide 2.5 2 puff inhalation QAM 10/16/20 09/16/22 mcg/actuation mist for inhalation (Spiriva Respimat) pantoprazole 20 mg tablet,delayed 20 mg PO DAILY 07/07/21 09/16/22 release ferrous sulfate 325 mg (65 mg 325 mg PO Q OTHER DAY 08/11/21 09/16/22 iron) tablet (Feosol) mecobalamin (vitamin B12) 1,000 1,000 mcg PO DAILY 10/30/21 09/16/22 mcg chewable tablet diltiazem HCl 240 mg 240 mg PO BID 12/20/21 09/16/22 capsule,extended release 24 hr dapagliflozin propanediol 10 mg 10 mg PO QAM 05/13/22 09/16/22 tablet (Farxiga) semaglutide 14 mg tablet (Rybelsus) 14 mg PO QAM 05/13/22 09/16/22 magnesium oxide 400 mg PO BID 09/04/22 09/16/22 sodium zirconium cyclosilicate 5 5 g PO [id number] 09/04/22 09/16/22 gram oral powder packet (Lokelma) Previous Rx's Medication Instructions Recorded Portable Oxygen #1 ea 02/17/22 arformoterol 15 mcg/2 mL solution 2 ml inhalation BID #120 mL 05/13/22 for nebulization budesonide 0.5 mg/2 mL suspension 0.5 mg (2 mL) inhalation BID #120 06/09/22 for nebulization mL furosemide 20 mg tablet 20 mg PO .COMPLEX #270 tabs 07/21/22 azithromycin 250 mg tablet 250 mg PO Q OTHER DAY 30 days #15 09/09/22 tabs Results & Data (ED) Vital Signs Vital Signs - 24 hr 09/16/22 22:45 09/16/22 22:45 09/16/22 22:49 Temperature 36.8 C Temperature Source Oral Pulse Rate 127 H 121 H Pulse Rate [Apical] Pulse Rate from SpO2 Sensor Respiratory Rate 32 H Respiratory Effort / Characteristics Labored Labored Blood Pressure 139/79 Blood Pressure Mean 99 Pulse Oximetry 79 L Oxygen Delivery Method Non-rebreather Oxygen Flow Rate 15 Sepsis New/Unexplained Change in Mental Status N/A Sepsis Action Taken by Nursing No Action Required 09/16/22 22:57 09/16/22 22:48 09/16/22 23:00 Temperature Temperature Source Pulse Rate 142 H Pulse Rate [Apical] 107 H Pulse Rate from SpO2 Sensor 139 H Respiratory Rate 21 27 H Respiratory Effort / Characteristics Spontaneous Short of Breath Blood Pressure 139/79 Blood Pressure Mean 99 Pulse Oximetry 89 L 88 L Oxygen Delivery Method Non-rebreather Non-rebreather Oxygen Flow Rate 15 15 Sepsis New/Unexplained Change in Mental Status Sepsis Action Taken by Nursing 09/16/22 23:30 09/16/22 23:45 09/16/22 23:47 Temperature Temperature Source Pulse Rate 107 H 101 H Pulse Rate [Apical] Pulse Rate from SpO2 Sensor 107 H 101 H Respiratory Rate 29 H 27 H Respiratory Effort / Characteristics Blood Pressure 143/69 H Blood Pressure Mean 93 Pulse Oximetry 88 L 92 Oxygen Delivery Method Non-rebreather Non-rebreather Oxygen Flow Rate 15 15 Sepsis New/Unexplained Change in Mental Status Sepsis Action Taken by Nursing 09/16/22 23:47 09/17/22 00:30 09/17/22 00:30 Temperature Temperature Source Pulse Rate 101 H 100 H Pulse Rate [Apical] Pulse Rate from SpO2 Sensor 101 H 100 H Respiratory Rate 16 23 Respiratory Effort / Characteristics Blood Pressure 146/63 H Blood Pressure Mean 90 Pulse Oximetry 93 91 Oxygen Delivery Method Non-rebreather Non-rebreather Oxygen Flow Rate 15 15 Sepsis New/Unexplained Change in Mental Status Sepsis Action Taken by Nursing 09/17/22 00:45 09/17/22 01:30 09/17/22 01:30 Temperature Temperature Source Pulse Rate 93 H 89 Pulse Rate [Apical] Pulse Rate from SpO2 Sensor 91 H Respiratory Rate 20 26 H Respiratory Effort / Characteristics Blood Pressure 125/64 Blood Pressure Mean 84 Pulse Oximetry 92 Oxygen Delivery Method Non-rebreather Non-rebreather Oxygen Flow Rate 15 15 Sepsis New/Unexplained Change in Mental Status Sepsis Action Taken by Nursing Laboratory Data 09/16/22 23:25 09/16/22 23:25 Lab Results 09/16/22 09/16/22 09/16/22 Range/Units 23:25 23:25 23:25 WBC 10.00 (4.8-10.8) K/ul RBC 3.50 L (4.70-6.10) M/uL Hgb 9.5 L (14.0-18.0) g/dl Hct 31.3 L (42.0-52.0) % MCV 89.4 (80.0-100.0) fL MCH 27.1 (25.0-34.0) pg MCHC 30.4 L (32.0-36.0) g/dL RDW Std Deviation 57.8 H (36.4-46.3) fL RDW Coeff of Arnoldo 17.7 H (11.5-14.5) % Plt Count 400 (130-400) K/uL MPV 9.8 (9.4-12.4) fL Immature Gran % (Auto) 0.8 % Neut % (Auto) 83.2 % Lymph % (Auto) 8.0 % [place] % (Auto) 6.4 % Eos % (Auto) 1.4 % Baso % (Auto) 0.2 % Neut # (Auto) 8.32 H (1.40-6.50) K/uL Lymph # (Auto) 0.80 L (1.2-3.4) K/uL [place] # (Auto) 0.64 H (0.11-0.59) K/uL Eos # (Auto) 0.14 (0-0.50) K/uL Baso # (Auto) 0.02 (0-0.2) K/uL Immature Gran # (Auto) 0.08 (0.01-0.20) K/uL PT Cancelled INR Cancelled Sodium 136 (136-145) mmol/L Potassium 4.8 (3.5-5.1) mmol/L Chloride 93 L (98-107) mmol/L Carbon Dioxide 36 H (21-32) mmol/L Anion Gap 7 (3-11) BUN 38 H (6-23) mg/dl Creatinine 1.81 H (0.6-1.4) mg/dl Est Cr Clr Drug Dosing 35.3 ml/min Est GFR ( Amer) 41.5 ml/min Est GFR (Non-Af Amer) 35.8 ml/min BUN/Creatinine Ratio 21.0 H (10-20) Glucose 198 H (70-99(Fasting)) mg/dl Calcium 8.4 L (8.6-10.3) mg/dl Magnesium 2.2 (1.7-2.4) mg/dl Total Bilirubin 0.3 (0.2-1.0) mg/dl AST 15 (13-39) U/L ALT 17 (7-52) U/L Alkaline Phosphatase 62 (34-104) U/L Troponin I High Sens 19.0 (0-20) pg/ml B-Natriuretic Peptide (0-100) pg/ml Total Protein 6.4 (6.0-8.3) gm/dl Albumin 3.0 L (3.4-5.0) gm/dl Globulin 3.4 (2.5-4.0) gm/dl Albumin/Globulin Ratio 0.9 (0.9-2) Lipase 27 (11-82) U/L Procalcitonin (0-0.5) ng/ml SARS-CoV-2 (PCR) (Negative) Influenza Type A (PCR) (Neg) Influenza Type B (PCR) (Neg) RSV (RT-PCR) (Neg) 09/16/22 09/16/22 09/16/22 Range/Units 23:25 23:26 23:58 WBC (4.8-10.8) K/ul RBC (4.70-6.10) M/uL Hgb (14.0-18.0) g/dl Hct (42.0-52.0) % MCV (80.0-100.0) fL MCH (25.0-34.0) pg MCHC (32.0-36.0) g/dL RDW Std Deviation (36.4-46.3) fL RDW Coeff of Arnoldo (11.5-14.5) % Plt Count (130-400) K/uL MPV (9.4-12.4) fL Immature Gran % (Auto) % Neut % (Auto) % Lymph % (Auto) % [place] % (Auto) % Eos % (Auto) % Baso % (Auto) % Neut # (Auto) (1.40-6.50) K/uL Lymph # (Auto) (1.2-3.4) K/uL [place] # (Auto) (0.11-0.59) K/uL Eos # (Auto) (0-0.50) K/uL Baso # (Auto) (0-0.2) K/uL Immature Gran # (Auto) (0.01-0.20) K/uL PT 11.9 INR 1.1 Sodium (136-145) mmol/L Potassium (3.5-5.1) mmol/L Chloride (98-107) mmol/L Carbon Dioxide (21-32) mmol/L Anion Gap (3-11) BUN (6-23) mg/dl Creatinine (0.6-1.4) mg/dl Est Cr Clr Drug Dosing ml/min Est GFR ( Amer) ml/min Est GFR (Non-Af Amer) ml/min BUN/Creatinine Ratio (10-20) Glucose (70-99(Fasting)) mg/dl Calcium (8.6-10.3) mg/dl Magnesium (1.7-2.4) mg/dl Total Bilirubin (0.2-1.0) mg/dl AST (13-39) U/L ALT (7-52) U/L Alkaline Phosphatase (34-104) U/L Troponin I High Sens (0-20) pg/ml B-Natriuretic Peptide 134 H (0-100) pg/ml Total Protein (6.0-8.3) gm/dl Albumin (3.4-5.0) gm/dl Globulin (2.5-4.0) gm/dl Albumin/Globulin Ratio (0.9-2) Lipase (11-82) U/L Procalcitonin 0.28 (0-0.5) ng/ml SARS-CoV-2 (PCR) (Negative) Influenza Type A (PCR) (Neg) Influenza Type B (PCR) (Neg) RSV (RT-PCR) (Neg) 09/17/22 Range/Units 01:19 WBC (4.8-10.8) K/ul RBC (4.70-6.10) M/uL Hgb (14.0-18.0) g/dl Hct (42.0-52.0) % MCV (80.0-100.0) fL MCH (25.0-34.0) pg MCHC (32.0-36.0) g/dL RDW Std Deviation (36.4-46.3) fL RDW Coeff of Arnoldo (11.5-14.5) % Plt Count (130-400) K/uL MPV (9.4-12.4) fL Immature Gran % (Auto) % Neut % (Auto) % Lymph % (Auto) % [place] % (Auto) % Eos % (Auto) % Baso % (Auto) % Neut # (Auto) (1.40-6.50) K/uL Lymph # (Auto) (1.2-3.4) K/uL [place] # (Auto) (0.11-0.59) K/uL Eos # (Auto) (0-0.50) K/uL Baso # (Auto) (0-0.2) K/uL Immature Gran # (Auto) (0.01-0.20) K/uL PT INR Sodium (136-145) mmol/L Potassium (3.5-5.1) mmol/L Chloride (98-107) mmol/L Carbon Dioxide (21-32) mmol/L Anion Gap (3-11) BUN (6-23) mg/dl Creatinine (0.6-1.4) mg/dl Est Cr Clr Drug Dosing ml/min Est GFR ( Amer) ml/min Est GFR (Non-Af Amer) ml/min BUN/Creatinine Ratio (10-20) Glucose (70-99(Fasting)) mg/dl Calcium (8.6-10.3) mg/dl Magnesium (1.7-2.4) mg/dl Total Bilirubin (0.2-1.0) mg/dl AST (13-39) U/L ALT (7-52) U/L Alkaline Phosphatase (34-104) U/L Troponin I High Sens (0-20) pg/ml B-Natriuretic Peptide (0-100) pg/ml Total Protein (6.0-8.3) gm/dl Albumin (3.4-5.0) gm/dl Globulin (2.5-4.0) gm/dl Albumin/Globulin Ratio (0.9-2) Lipase (11-82) U/L Procalcitonin (0-0.5) ng/ml SARS-CoV-2 (PCR) NEGATIVE (Negative) Influenza Type A (PCR) Negative (Neg) Influenza Type B (PCR) Negative (Neg) RSV (RT-PCR) Negative (Neg) Administered Medications Discontinued Medications Sodium Chloride (Nss 1000ml) 1,000 mls @ 125 mls/hr IV .Q8H RICHARD Stop: 10/17/22 00:29 Last Infusion: 09/17/22 05:02 Dose: 0 mls/hr Documented By: Admin: 09/17/22 00:53 Dose: 125 mls/hr Documented By: Cefepime HCl (Maxipime) 2,000 mg in 20 mls @ 5 mls/min IV NOW STA; Protocol Stop: 09/17/22 00:30 Last Admin: 09/17/22 01:17 Dose: 5 mls/min Documented By: Ioversol (Optiray 320 125ml) 120 ml IV ONCE ONE Stop: 09/17/22 00:46 Last Admin: 09/17/22 00:45 Dose: 120 ml Documented By: EPIFANIO Lorazepam (Lorazepam 2 Mg/1 Ml Vial) 0.5 mg IV NOW STA Stop: 09/16/22 23:12 Last Admin: 09/16/22 23:34 Dose: 0.5 mg Documented By: JR Imaging Data Radiologist's Impression: Chest CTA 09/17/22 00:25 Exam(s): CTA CHEST IV Amt: 120ML OF OPTIRAY 320 EXAM: CT Angiography Chest With Intravenous Contrast CLINICAL HISTORY: Pulmonary embolus. TECHNIQUE: Axial computed tomographic angiography images of the chest with intravenous contrast. Automated exposure control was utilized for the study. A dose lowering technique was utilized adhering to the principles of ALARA. MIP reconstructed images were created and reviewed. COMPARISON: No relevant prior studies available. FINDINGS: Pulmonary arteries: Unremarkable. No pulmonary embolus. Aorta: Mild atherosclerosis. No aneurysm or dissection. Lungs: Diffuse bilateral airspace opacities are most consistent with multifocal pneumonia and/or aspiration. Emphysema. Pleural space: Unremarkable. No significant effusion. No pneumothorax. Heart: Unremarkable. No cardiomegaly. No significant pericardial effusion. No evidence of RV dysfunction. Bones/joints: There are degenerative changes of the spine. No fracture. Soft tissues: Unremarkable. Lymph nodes: Unremarkable. No enlarged lymph nodes. IMPRESSION: 1. No pulmonary embolus. 2. Diffuse bilateral airspace opacities are most consistent with multifocal pneumonia and/or aspiration. 3. Emphysema. Electronically signed by: Beata Jansen MD 09/17/22 02:54 AM Discharge Plan Visit Data Chief Complaint: Respiratory Distress ED Provider: Shannen Guzman Discharge Problem: Dyspnea, Hypoxia, Severe chronic obstructive pulmonary disease, Anemia, Pneumonia, CKD (chronic kidney disease) Patient Disposition: Admitted As Inpatient Discharge Instructions Interventions: ED Discharge Assessment Last Done: 09/17/22 04:14
--- NOTE | 2022-09-17 01:55 | History & Physical Report ---
Date of Service September 17, 2022 Assessment & Plan (1) Dyspnea: Plan: Etiology unclear. Patient with end-stage COPD presenting with acute on chronic hypoxemic respiratory failure. Presently asleep, saturating 88% on 15L NRB, appears comfortable. Of note, patient with known WENDY and is to be on CPAP. He does not wish to use his CPAP anymore CTA of the chest without PE, multifocal airspace disease suggestive of PNA vs aspiration -Admit to medical with telemetry -Continue supplemental O2 as needed to maintain saturation of 88-92%. -Continue neb treatments - Aformoterol and Budesonide - DuoNeb q 4 hours and Albuterol PRN -Hypertonic saline Nebs BID PRN suspected mucus plugging/chest congestion -Flutter valve -Azithromycin 250mg po daily (will change from QOD for now) -Zosyn -Ativan as needed for anxiety -Lasix 40mg IV x 1 dose, monitor output. Resume home Lasix 60mg po daily (2) Hypoxia: (3) WENDY (obstructive sleep apnea): Plan: Patient is noncompliant with CPAP (4) Coronary artery disease: Plan: Chronic. Patient denies chest pain. No acute ischemic changes present on EKG -Continue ASA 81mg po daily -Continue Atorvastatin 20mg po qHS (5) Hypertension: Plan: Chronic. Well controlled at present -Continue Diltiazem -Continue to monitor (6) Hyperlipidemia: Plan: Chronic -Continue Atorvastatin (7) DM type 2 (diabetes mellitus, type 2): Plan: HOld oral agents -Lantus 5u BID -ISS -Goal blood sugar 110 - 140 F/E/N - Lasix 40mg IV x 1, monitor electrolytes, CC/Low Na diet as tolerated Ppx - Heparin Code - DNR/DNI Dispo -Admit to medical with telemetry History of Present Illness Chief Complaint: shortness of breath Primary Care Provider: James Perdue MD Kristopher Louie is a pleasant 77yo male with chronic respiratory failure with hypox ia, end stage COPD on home oxygen, recently discovered VERN spiculated mass measuring 5.4cm concerning for bronchogenic carcinoma, WENDY, CAD, DM, HTN, HLP and CKD-III presenting with shortness of breath. Patient was recently admitted to [facility] from 09/04/22 - 09/09/22 after presenting with shortness of breath. Patient was treated for a COPD exacerbation and discharged home in stable condition. He was started on Azithromycin 250mg po QOD for his COPD. Patient presents this evening with progressive shortness of breath. He reports difficulty breathing throughout the day. He is typically on 4L/min by RI which was gradually increased throughout the day due to shortness of breath and hypoxia. He was on 10L/m by RI when EMS was called. He took several nebs throughout the day with minimal improvement. EMS placed patient on NRB and administered Solumedrol. Patient hypoxic upon arrival to the ER, tachycardic and tachypneic. He was maintained on NRB 15L and administered 0.5mg of Ativan which improved his HR and respiratory distress. Patient denies chest pain. He does not admit to increase in cough or sputum production. Denies fever, chills, sweats, abdominal pain, nausea, vomiting, di arrhea or constipation. No additional complaints at this time ER Course: Cefepime NSS at 125mL/hr Ativan 0.5mg IV Allergies Allergy/AdvReac Type Severity Reaction Status Date / Time ALYSSA Inhibitors Allergy Severe ANAPHYLAXIS Verified 09/04/22 10:18 Home Medications Medication Instructions Recorded Confirmed Type albuterol sulfate 90 mcg/actuation 2 puff inhalation Q4 PRN Wheezing 12/14/17 09/16/22 History aerosol inhaler atorvastatin 20 mg tablet 20 mg PO HS 12/14/17 09/16/22 History metformin 1,000 mg tablet 1,000 mg PO BID 12/14/17 09/16/22 History nitroglycerin 0.4 mg sublingual 0.4 mg sublingual DIRECTED PRN 12/14/17 09/16/22 History tablet Chest Pain Oxygen Home #1 ea 11/13/18 06/17/22 History aspirin 81 mg tablet,delayed 81 mg PO Q OTHER DAY 11/27/18 09/16/22 History release ascorbic acid (vitamin C) 1,000 mg 1 gm PO QAM 06/05/19 09/16/22 History tablet tiotropium bromide 2.5 2 puff inhalation QAM 10/16/20 09/16/22 History mcg/actuation mist for inhalation (Spiriva Respimat) pantoprazole 20 mg tablet,delayed 20 mg PO DAILY 07/07/21 09/16/22 History release ferrous sulfate 325 mg (65 mg 325 mg PO Q OTHER DAY 08/11/21 09/16/22 History iron) tablet (Feosol) mecobalamin (vitamin B12) 1,000 1,000 mcg PO DAILY 10/30/21 09/16/22 History mcg chewable tablet diltiazem HCl 240 mg 240 mg PO BID 12/20/21 09/16/22 History capsule,extended release 24 hr Portable Oxygen #1 ea 02/17/22 06/17/22 Rx arformoterol 15 mcg/2 mL solution 2 ml inhalation BID #120 mL 05/13/22 09/16/22 Rx for nebulization dapagliflozin propanediol 10 mg 10 mg PO QAM 05/13/22 09/16/22 History tablet (Farxiga) semaglutide 14 mg tablet (Rybelsus) 14 mg PO QAM 05/13/22 09/16/22 History budesonide 0.5 mg/2 mL suspension 0.5 mg (2 mL) inhalation BID #120 06/09/22 09/16/22 Rx for nebulization mL furosemide 20 mg tablet 20 mg PO .COMPLEX #270 tabs 07/21/22 09/16/22 Rx magnesium oxide 400 mg PO BID 09/04/22 09/16/22 History sodium zirconium cyclosilicate 5 5 g PO 3XWK 09/04/22 09/16/22 History gram oral powder packet (Lokelma) azithromycin 250 mg tablet 250 mg PO Q OTHER DAY 30 days #15 09/09/22 09/16/22 Rx tabs Past Med/Surg History Medical History Abnormal CT scan, chest BPH with obstruction/lower urinary tract symptoms CAD (coronary artery disease) CKD (chronic kidney disease) stage 3, GFR 30-59 ml/min COPD (chronic obstructive pulmonary disease) not well controlled per pt > worse this time of year with humidity DM type 2 (diabetes mellitus, type 2) NIDDM Goals of care, counseling/discussion H/O pulmonary emphysema History of arthritis History of cardioversion 2009> SVT History of heart attack pt unaware of this History of nicotine dependence Hyperlipidemia Hypertension Hypomagnesemia Iron deficiency anemia due to chronic blood loss Multiple pulmonary nodules determined by computed tomography of lung On home oxygen therapy 3 LPM continuous WENDY (obstructive sleep apnea) no cpap > O2 continuous Peripheral neuropathy Pneumonia Apr 2019 Pulmonary air trapping Pulmonary air trapping Renal cyst just monitoring Renal cyst SVT (supraventricular tachycardia) dx 2009> diltiazem for this > controlled Surgical History History of bone marrow biopsy July 2019 > checking due to anemia History of cardiac cath 2009 > no stents History of colonoscopy History of esophagogastroduodenoscopy (EGD) History of nasal surgery Status post cataract extraction of both eyes with insertion of intraocular lens [place] teeth extracted Family History Father Diabetes Mother Diabetes Hypertension Other Brain tumor Depression Stroke Social History Smoking Status: Former smoker Tobacco Type: Cigarettes Age Started Using Tobacco: 20; packs per day: 1.0; Second Hand Exposure: No; Do You Dip or Chew Tobacco: No; Hx Alcohol Use: Yes Alcohol type: beer Hx Substance Use: No Preferred Language: Divehi Communication Ability: Effective Aquatics Director Required: No Beliefs That Will Affect Care: None Current Living Situation: Alone Current Living Situation Comment: home alone Feels Safe at Home: Yes Assistive Devices: Nebulizer Review of Systems Review of Systems: All systems reviewed & are unremarkable except as noted in HPI & below Physical Exam Physical Exam: General: patient resting comfortably, easily arousable, NAD, non-toxic in appearance, AA&O x 4, chronically ill in appearance Skin: warm, dry, intact, no rashes or lesions HEENT: NC/AT, PERRL, EOMI, anicteric sclera, conjunctiva without injection, external ear normal to inspection and nontender, nares patent, moist mucus membranes, dentition intact, no oropharyngeal lesions, neck supple, trachea midline, no LAD, no thyromegaly, no JVD Heart: +S1/S2, regular, no m/r/g Lungs: equal air entry bilaterally, coarse breath sounds bilaterally, no wheezing Abd: +BS, soft, NT/ND, no masses/organomegaly/ascites Ext: warm, 2+ pulses in UE/LE bilaterally, no clubbing/cyanosis or edema Neuro: nonfocal, patient AA&O x 4, speech intact, no facial droop, moving all extremities on command with equal strength 5/5 Results & Data Results & Data Vital Signs (Past 12 Hours) Vital Signs Temp Pulse Pulse Resp BP Pulse Ox O2 Del Method 09/17/22 00:45 93 H 20 Non-rebreather 09/17/22 00:30 100 H 23 91 Non-rebreather 09/17/22 00:30 146/63 H 09/16/22 23:47 101 H 16 93 Non-rebreather 09/16/22 23:47 143/69 H 09/16/22 23:45 101 H 27 H 92 Non-rebreather 09/16/22 23:30 107 H 29 H 88 L Non-rebreather 09/16/22 23:00 142 H 27 H 88 L Non-rebreather 09/16/22 22:48 139/79 09/16/22 22:57 107 H 21 89 L Non-rebreather 09/16/22 22:49 121 H 09/16/22 22:45 36.8 C 127 H 32 H 139/79 79 L Non-rebreather O2 Flow Rate 09/17/22 00:45 15 09/17/22 00:30 15 09/17/22 00:30 09/16/22 23:47 15 09/16/22 23:47 09/16/22 23:45 15 09/16/22 23:30 15 09/16/22 23:00 15 09/16/22 22:48 09/16/22 22:57 15 09/16/22 22:49 09/16/22 22:45 15 Laboratory Results Laboratory Results WBC 10.00 K/ul (4.8-10.8) 09/16/22 23:25 RBC 3.50 M/uL (4.70-6.10) L 09/16/22 23:25 Hgb 9.5 g/dl (14.0-18.0) L 09/16/22 23:25 Hct 31.3 % (42.0-52.0) L 09/16/22 23:25 MCV 89.4 fL (80.0-100.0) 09/16/22 23:25 MCH 27.1 pg (25.0-34.0) 09/16/22 23:25 MCHC 30.4 g/dL (32.0-36.0) L 09/16/22 23:25 RDW Std Deviation 57.8 fL (36.4-46.3) H 09/16/22 23:25 RDW Coeff of Arnoldo 17.7 % (11.5-14.5) H 09/16/22 23:25 Plt Count 400 K/uL (130-400) 09/16/22 23:25 MPV 9.8 fL (9.4-12.4) 09/16/22 23:25 Immature Gran % (Auto) 0.8 % 09/16/22 23:25 Neut % (Auto) 83.2 % 09/16/22 23:25 Lymph % (Auto) 8.0 % 09/16/22 23:25 Graham % (Auto) 6.4 % 09/16/22 23:25 Eos % (Auto) 1.4 % 09/16/22 23:25 Baso % (Auto) 0.2 % 09/16/22 23:25 Neut # (Auto) 8.32 K/uL (1.40-6.50) H 09/16/22 23:25 Lymph # (Auto) 0.80 K/uL (1.2-3.4) L 09/16/22 23:25 Graham # (Auto) 0.64 K/uL (0.11-0.59) H 09/16/22 23:25 Eos # (Auto) 0.14 K/uL (0-0.50) 09/16/22 23:25 Baso # (Auto) 0.02 K/uL (0-0.2) 09/16/22 23:25 Immature Gran # (Auto) 0.08 K/uL (0.01-0.20) 09/16/22 23:25 PT 11.9 Seconds (9.0-12.0) 09/16/22 23:58 INR 1.1 (0.9-1.1) 09/16/22 23:58 Sodium 136 mmol/L (136-145) 09/16/22 23:25 Potassium 4.8 mmol/L (3.5-5.1) 09/16/22 23:25 Chloride 93 mmol/L (98-107) L 09/16/22 23:25 Carbon Dioxide 36 mmol/L (21-32) H 09/16/22 23:25 Anion Gap 7 (3-11) 09/16/22 23:25 BUN 38 mg/dl (6-23) H 09/16/22 23:25 Creatinine 1.81 mg/dl (0.6-1.4) H 09/16/22 23:25 Est Cr Clr Drug Dosing 35.3 ml/min 09/16/22 23:25 Est GFR ( Amer) 41.5 ml/min 09/16/22 23:25 Est GFR (Non-Af Amer) 35.8 ml/min 09/16/22 23:25 BUN/Creatinine Ratio 21.0 (10-20) H 09/16/22 23:25 Glucose 198 mg/dl (70-99(Fasting)) H 09/16/22 23:25 Calcium 8.4 mg/dl (8.6-10.3) L 09/16/22 23:25 Magnesium 2.2 mg/dl (1.7-2.4) 09/16/22 23:25 Total Bilirubin 0.3 mg/dl (0.2-1.0) 09/16/22 23:25 AST 15 U/L (13-39) 09/16/22 23:25 ALT 17 U/L (7-52) 09/16/22 23:25 Alkaline Phosphatase 62 U/L (34-104) 09/16/22 23:25 Troponin I High Sens 19.0 pg/ml (0-20) 09/16/22 23:25 B-Natriuretic Peptide 134 pg/ml (0-100) H 09/16/22 23:25 Total Protein 6.4 gm/dl (6.0-8.3) 09/16/22 23:25 Albumin 3.0 gm/dl (3.4-5.0) L 09/16/22 23:25 Globulin 3.4 gm/dl (2.5-4.0) 09/16/22 23:25 Albumin/Globulin Ratio 0.9 (0.9-2) 09/16/22 23:25 Lipase 27 U/L (11-82) 09/16/22 23:25 Procalcitonin 0.28 ng/ml (0-0.5) 09/16/22 23:26 SARS-CoV-2 (PCR) NEGATIVE (Negative) 09/17/22 01:19 Influenza Type A (PCR) Negative (Neg) 09/17/22 01:19 Influenza Type B (PCR) Negative (Neg) 09/17/22 01:19 RSV (RT-PCR) Negative (Neg) 09/17/22 01:19 Impressions Chest CTA 09/17/22 00:25 Exam(s): CTA CHEST IV Amt: 120ML OF OPTIRAY 320 EXAM: CT Angiography Chest With Intravenous Contrast CLINICAL HISTORY: Pulmonary embolus. TECHNIQUE: Axial computed tomographic angiography images of the chest with intravenous contrast. Automated exposure control was utilized for the study. A dose lowering technique was utilized adhering to the principles of ALARA. MIP reconstructed images were created and reviewed. COMPARISON: No relevant prior studies available. FINDINGS: Pulmonary arteries: Unremarkable. No pulmonary embolus. Aorta: Mild atherosclerosis. No aneurysm or dissection. Lungs: Diffuse bilateral airspace opacities are most consistent with multifocal pneumonia and/or aspiration. Emphysema. Pleural space: Unremarkable. No significant effusion. No pneumothorax. Heart: Unremarkable. No cardiomegaly. No significant pericardial effusion. No evidence of RV dysfunction. Bones/joints: There are degenerative changes of the spine. No fracture. Soft tissues: Unremarkable. Lymph nodes: Unremarkable. No enlarged lymph nodes. IMPRESSION: 1. No pulmonary embolus. 2. Diffuse bilateral airspace opacities are most consistent with multifocal pneumonia and/or aspiration. 3. Emphysema. Electronically signed by: Beata Jansen MD 09/17/22 02:54 AM Code Status & VTE Plan VTE Prophylaxis Plan VTE Prophylaxis will be ordered: Yes PG Care Time/CCT Total # of Minutes Spent Total Time Spent with Patient: Total time spent is greater than 50% in coordination of care (as documented) at patient's floor/unit and/or counseling patient: Coding Level of Care Code 44716 INT INP/OBS CARE 3/75MIN Diagnoses Dyspnea R06.00 Hypoxia R09.02 WENDY (obstructive sleep apnea) G47.33 Coronary artery disease I25.10 Associated angina: without angina Coronary Disease-Associated Artery/Lesion type: [place] artery [place] vs. transplanted heart: [place] heart Hypertension I10 Hypertension type: essential hypertension Hyperlipidemia E78.5 Hyperlipidemia type: unspecified DM type 2 (diabetes mellitus, type 2) E11.9 Diabetes mellitus complication status: without complication Diabetes mellitus senior care insulin use: without buttermaker use (4) Coronary artery disease Associated angina: without angina Coronary Disease-Associated Artery/Lesion type: [place] artery [place] vs. transplanted heart: [place] heart Qualified Code(s): I25.10 - Atherosclerotic heart disease of [place] coronary artery without angina pectoris (5) Hypertension Hypertension type: essential hypertension Qualified Code(s): I10 - Essential (primary) hypertension (6) Hyperlipidemia Hyperlipidemia type: unspecified Qualified Code(s): E78.5 - Hyperlipidemia, unspecified (7) DM type 2 (diabetes mellitus, type 2) Diabetes mellitus complication status: without complication Diabetes mellitus senior care insulin use: without buttermaker use Qualified Code(s): E11.9 - Type 2 diabetes mellitus without complications
[2022-09-17 02:09] LABS: Influenza A virus by PCR Negative (Neg); Influenza B virus by PCR Negative (Neg); RSV by PCR Negative (Neg); SARS CoV2 RNA(COVID-19) Ceph NEGATIVE (Negative)
--- NOTE | 2022-09-17 02:55 | CT Scan Report ---
Exam(s): CTA CHEST IV Amt: 120ML OF OPTIRAY 320 EXAM: CT Angiography Chest With Intravenous Contrast CLINICAL HISTORY: Pulmonary embolus. TECHNIQUE: Axial computed tomographic angiography images of the chest with intravenous contrast. Automated exposure control was utilized for the study. A dose lowering technique was utilized adhering to the principles of ALARA. MIP reconstructed images were created and reviewed. COMPARISON: No relevant prior studies available. FINDINGS: Pulmonary arteries: Unremarkable. No pulmonary embolus. Aorta: Mild atherosclerosis. No aneurysm or dissection. Lungs: Diffuse bilateral airspace opacities are most consistent with multifocal pneumonia and/or aspiration. Emphysema. Pleural space: Unremarkable. No significant effusion. No pneumothorax. Heart: Unremarkable. No cardiomegaly. No significant pericardial effusion. No evidence of RV dysfunction. Bones/joints: There are degenerative changes of the spine. No fracture. Soft tissues: Unremarkable. Lymph nodes: Unremarkable. No enlarged lymph nodes. IMPRESSION: 1. No pulmonary embolus. 2. Diffuse bilateral airspace opacities are most consistent with multifocal pneumonia and/or aspiration. 3. Emphysema. Electronically signed by: Beata Jansen MD 09/17/22 02:54 AM
[2022-09-17] MEDS ORDERED: CARBOHYDRATES FOR HYPOGLYCEMIA PO PRN (05:01)
[2022-09-17] MEDS ORDERED: DEXTROSE 50% 50 ML SYRINGE IV PRN (05:01)
[2022-09-17] MEDS ORDERED: SODIUM CHLOR 7% 4 ML NEB NEB PRN (05:01)
[2022-09-17] MEDS ORDERED: GLUCOSE 40% GEL 15 GM TUBE PO PRN (05:01)
[2022-09-17] MEDS ORDERED: FUROSEMIDE 40 MG/4 ML VIAL IV ONE (05:01)
[2022-09-17] MEDS ORDERED: GLUCOSE 10 TAB/TUBE PO PRN (05:01)
[2022-09-17] MEDS ORDERED: GLUCAGON FOR INJ 1 MG VIAL SQ PRN (05:01)
[2022-09-17] MEDS ORDERED: LORazepam 2 MG/1 ML VIAL IV PRN (05:01)
[2022-09-17] MEDS ORDERED: ACETAMINOPHEN 325 MG TAB PO PRN (05:01)
[2022-09-17] MEDS ORDERED: PIPERACILLIN/TAZOBACTAM 4.5 GM in DEXTROSE 5% 100 ML IV ONE (05:15)
[2022-09-17] MEDS: ALBUT/IPRATROP 3MG/0.5MG NEB 3 ML VIAL NEB SCH ×6 (05:47→22:33)
[2022-09-17] MEDS: BUDESONIDE 0.5 MG/2 ML VIAL (PULMICORT) INH SCH ×2 (05:47→18:52)
[2022-09-17] MEDS: FORMOTEROL 20 MCG/2 ML VIAL INH SCH ×2 (05:50→18:52)
--- NOTE | 2022-09-17 08:35 | XRay Report ---
SINGLE VIEW CHEST CLINICAL HISTORY: Dyspnea FINDINGS: An AP, portable, upright chest radiograph is compared to study dated 09/05/2022 and correlate d with chest CT dated 08/19/2022. The heart is enlarged indenting atherosclerotic calcification of the thoracic aorta. The pulmonary vasculature is noncongested. Emphysema and chronic interstitial thicke rm is similar to previous. Multifocal airspace consolidation has significantly increased as compare d to 09/23. This is greatest at the lung bases. No large pleural effusion or pneumothorax is seen. The skeletal structures are osteopenic. The bony thorax is grossly intact. IMPRESSION: 1. There is increasing multifocal airspace consolidation. The appearance is typical for pneumonia/asp iration pneumonitis. Clinical correlation will be required and radiographic follow-up to resolution i s recommended. 2. Cardiomegaly and emphysema. ACT 112: Negative or not required by law. Electronically signed by: Devan Irene M.D. 09/17/2022 8:34 AM
[2022-09-17] MEDS ORDERED: FUROSEMIDE 40 MG TAB PO SCH (09:00)
[2022-09-17] MEDS ORDERED: NON-FORMULARY MEDICATION (Dapagliflozin Propanediol [Farxiga] 10 mg tablet) PO SCH (09:00)
[2022-09-17] MEDS: INSULIN ASPART PER UNIT CHARGE SC SCH ×4 (09:19→21:17)
[2022-09-17] MEDS: LANTUS PER UNIT CHARGE SQ SCH ×2 (09:19→21:17)
[2022-09-17] MEDS: dilTIAZem HCL 240 MG CAPCR PO SCH ×2 (09:19→21:16)
[2022-09-17] MEDS: ASPIRIN 81 MG ECTAB PO SCH (09:19)
[2022-09-17] MEDS: AZITHROMYCIN 250 MG TAB PO SCH (09:20)
[2022-09-17] MEDS: PANTOprazole 40 MG TAB PO SCH (09:20)
[2022-09-17] MEDS: HEPARIN SOD 5,000 UNIT/0.5 ML VIAL SQ SCH ×2 (09:20→21:16)
[2022-09-17] MEDS: PIPERACILLIN/TAZOBACTAM 4.5 GM in DEXTROSE 5% 100 ML IV SCH ×2 (11:25→17:56)
--- NOTE | 2022-09-17 13:17 | Electrocardiogram Report ---
Test Reason : Blood Pressure : / mmHG Vent. Rate : 118 BPM Atrial Rate : 118 BPM P-R Int : 154 ms QRS Dur : 098 ms QT Int : 312 ms P-R-T Axes : 080 097 056 degrees QTc Int : 437 ms Sinus tachycardia with Premature atrial complexes Rightward axis Nonspecific ST abnormality Abnormal ECG When compared with ECG of 04-SEP-2022 07:57, Premature atrial complexes are now Present ST now depressed in Anterior leads Nonspecific T wave abnormality, improved in Anterior leads Confirmed by Jonathan Doherty ([id number]) on 09/17/2022 1:16:58 PM Referred By: Wu Cortez Confirmed By:Jonathan Doherty
[2022-09-17] MEDS ORDERED: FUROSEMIDE 20 MG TAB PO SCH (17:00)
[2022-09-17] MEDS: ATORVASTATIN 20 MG TAB PO SCH (21:16)
[2022-09-18] MEDS: PIPERACILLIN/TAZOBACTAM 4.5 GM in DEXTROSE 5% 100 ML IV SCH ×3 (02:27→18:08)
[2022-09-18] MEDS: ALBUT/IPRATROP 3MG/0.5MG NEB 3 ML VIAL NEB SCH ×6 (03:41→23:04)
[2022-09-18 06:16] LABS: Hematocrit (blood only) 28.4 % (42.0-52.0); Hemoglobin 8.9 g/dl (14.0-18.0); Mean Corpuscular Hemoglobin 27.4 pg (25.0-34.0); Mean Corpuscular Hgb Conc 31.3 g/dL (32.0-36.0); Mean Corpuscular Volume 87.4 fL (80.0-100.0); Mean Platelet Volume 9.8 fL (9.4-12.4); Platelet Count 377 K/uL (130-400); RDW Coefficient of Variation 17.2 % (11.5-14.5); RDW Standard Deviation 55.1 fL (36.4-46.3); Red Blood Count 3.25 M/uL (4.70-6.10); White Blood Count 8.87 K/ul (4.8-10.8)
[2022-09-18 06:44] LABS: BUN Creatinine Ratio 27.4 (10-20); Calcium 8.8 mg/dl (8.6-10.3); Creatinine Clr Calc Pharmacy 30.1 ml/min; Est GFR (African American) 34.2 ml/min; Est GFR (Non-African American) 29.6 ml/min; Potassium 4.5 mmol/L (3.5-5.1)
[2022-09-18] MEDS: FORMOTEROL 20 MCG/2 ML VIAL INH SCH ×2 (07:10→19:08)
[2022-09-18] MEDS: BUDESONIDE 0.5 MG/2 ML VIAL (PULMICORT) INH SCH ×2 (07:10→19:08)
[2022-09-18] MEDS ORDERED: PHARMACY GLYCEMIC MGMT CONSULT PRN (08:13)
[2022-09-18] MEDS: AZITHROMYCIN 250 MG TAB PO SCH (09:23)
[2022-09-18] MEDS: PANTOprazole 40 MG TAB PO SCH (09:24)
[2022-09-18] MEDS: HEPARIN SOD 5,000 UNIT/0.5 ML VIAL SQ SCH ×2 (09:24→20:49)
[2022-09-18] MEDS: dilTIAZem HCL 240 MG CAPCR PO SCH ×2 (09:24→20:49)
[2022-09-18] MEDS: LANTUS PER UNIT CHARGE SQ SCH (09:30)
[2022-09-18] MEDS: INSULIN ASPART PER UNIT CHARGE SC SCH ×5 (09:31→23:40)
--- NOTE | 2022-09-18 10:47 | Hospitalist Progress Note ---
Date of Service September 18, 2022 Assessment & Plan (1) Dyspnea: Plan: 77yo male with chronic respiratory failure with hypoxia, end stage COPD on 4L home oxygen, recently discovered VERN spiculated mass measuring 5.4cm concerning for bronchogenic carcinoma, WENDY, CAD, DM, HTN, HLP and CKD-III presenting from [facility] w/ increased O2 requirement and dyspnea. acute on chronic hypoxic respiratory failure -In setting of probable aspiration pneumonia and end stage COPD -CTA of the chest without PE, multifocal airspace disease suggestive of PNA vs aspiration -Requiring 15L O2 at admission, weaning, currently at 12L -Continue neb treatments - Arformoterol and Budesonide - DuoNeb q 4 hours and Albuterol -Hypertonic saline Nebs BID PRN suspected mucus plugging/chest congestion -Flutter valve -Azithromycin 250mg po daily (changed from home every other day prophylaxis dosing) -Zosyn, continuing, awaiting blood cultures. Tentatively, would transition to PO abx. -Ativan as needed for anxiety supraventricular tachycardia afternoon of 09/18 -w/ reported hx of SVT -Consider possible aspiration event as trigger. Patient woke up from nap and HR- >140s. Lungs w/ noticeable inspiratory crackles. + JVD. SVT on ecg. -Reverted to sinus 80s after 1 dose of IV Lopressor -cxr w/o sig change from prior -Will order formal speech eval. Prior evals reviewed. acute kidney injury on chronic kidney disease -Baseline Cr 1.6s-1.7s, uptrending Cr this admission to 2.46. s/p 1 dose IV Lasix in the ED -Temporarily holding home PO Lasix 40mg qm, 20mg pm. -175mL NSS provided. Follow BMP -Will consult nephro and check urine studies and microscopy. Considered prerenal vs intrinsic (e.g. from Zosyn use; but will keep for now given severity of illness). moderate pulmonary hypertension and chronic HFpEF -Per 09/2022 echo, new from 07/2021 echo. -EF 60-65%. No RWMA. Moderate concentric LVH. Mild RA/RV dilation. Very small pericardial effusion. -Currently holding home regimen Lasix 40 mg p.o. every morning and 20 mg p.o. every afternoon. obstructive sleep apnea -Patient is noncompliant with CPAP. In setting of moderate pulm hypertension, wo uld recommend readdressing use of CPAP. coronary artery disease -Continue ASA 81mg po daily -Continue Atorvastatin 20mg po qHS Hypertension -Continue Diltiazem Hyperlipidemia -Continue Atorvastatin DM type 2 Hold oral agents -Lantus and SSI. Pharmacy glycemic consult placed. F/E/N DM2, low Na. Ppx - SQ heparin Code - DNR/DNI Dispo PCU. When medically ready, would dc to home hospice w/ remainder of abx course via PO. (2) Hypoxia: (3) WENDY (obstructive sleep apnea): (4) Coronary artery disease: (5) Hypertension: (6) Hyperlipidemia: (7) DM type 2 (diabetes mellitus, type 2): Admission and Anticipated Discharge Date Admission Date: September 17, 2022 Supervising Physician Co-Signing Physician Notes Attending attestation Pt seen and examined in concert with Dr. Fung. In agreement with the documented findings as noted in the resident documentation with any exceptions or additions as noted here. Gradually improving shortness of breath at rest compared to admission. Feels much better today, overall. On examination, S1/S2 nl RRR no MCG. decreased bs throughout with scattered wheezing, bilateral basilar crackles. Abd NT/ND BS+ve Acute on chronic hypoxic respiratory failure - continue tapering O2 as tolerated, doing well on 12L at time of evaluation Pneumonia, multifocal concerning for aspiration - tolerating azithromycin, pip/tazo well with improvement. Encourage flutter valve. Previous recent swallow eval without significant abnormality RICHIE on CKDIII - holding furosemide for today, likely can restart at home PO in the AM. 250cc NS infusion, encourage POI Else see resident documentation as noted. Subjective Not at baseline, but breathing is improving significantly. On 12L. Denies other ROS. Ate breakfast. Denies aspiration concerns. PM rounds: daughter at bedside. Questions answered. Review of Systems Review of Systems: All systems reviewed & are unremarkable except as noted in HPI & below Physical Exam Physical Exam: General: Grossly A&O. NAD. Cooperative. HEENT: Atraumatic, normocephalic. Pulm: Moderate expiratory wheezes and rhonchi at bases on expiration. No accesso ry muscle us. Cardiac: RRR, -mrg. Minimal trace BLE. Abdominal: Nontender, nondistended, soft. Results & Data Results & Data Vital Signs (Past 12 Hours) Vital Signs Temp Pulse Resp BP Pulse Ox O2 Del Method O2 Flow Rate 09/18/22 08:11 36.6 C 76 19 156/72 H 94 Nasal Cannula 12 09/18/22 07:11 84 20 Nasal Cannula 10 09/18/22 03:42 74 18 96 Nasal Cannula 14 09/18/22 03:00 36.5 C 74 20 158/75 H 96 Nasal Cannula 09/17/22 23:12 36.5 C 76 21 166/80 H 97 Nasal Cannula 09/17/22 23:39 High Flow Nasal Cannula Resident Activity Tracking Resident Involvement: Resident Care Provided Care Provided: Adult Hospital Medicine (4) Coronary artery disease Associated angina: without angina Coronary Disease-Associated Artery/Lesion type: [place] artery [place] vs. transplanted heart: [place] heart Qualified Code(s): I25.10 - Atherosclerotic heart disease of [place] coronary artery without angina pectoris (5) Hypertension Hypertension type: essential hypertension Qualified Code(s): I10 - Essential (primary) hypertension (6) Hyperlipidemia Hyperlipidemia type: unspecified Qualified Code(s): E78.5 - Hyperlipidemia, unspecified (7) DM type 2 (diabetes mellitus, type 2) Diabetes mellitus complication status: without complication Diabetes mellitus termite treater insulin use: without termite treater use Qualified Code(s): E11.9 - Type 2 diabetes mellitus without complications
--- NOTE | 2022-09-18 11:09 | Pharmacy Report ---
Pharmacy Glycemic Short Note 2 - Date of Service September 18, 2022 - Glycemic Short BSG Results (Last 24 hours): 09/17/22 09/17/22 09/17/22 11:45 11:46 16:53 Glucose POC Glucose 417 H* 403 H* 294 H 09/17/22 09/18/22 09/18/22 20:24 06:01 07:55 Glucose 265 H POC Glucose 272 H 287 H OUTPATIENT ANTIDIABETIC REGIMEN: * Metformin 1 g PO BIDM * Farxiga 10 mg PO daily * Rybelsus 14 mg PO daily HbA1c: 8% (09/05/22) ASSESSMENT: * TS is a 77 year old male who presented to ED overnight on 09/16-09/17 with worsening shortness of breath * Pharmacy consulted for glycemic management this morning (09/18) due to persistently elevated BSGs yesterday * Zosyn + azithromycin ordered, no steroids at this time * Will utilize past inpatient glycemic data to guide initial insulin dosing * Lunch BSG of 326 mg/dL - will give one-time IV insulin bolus PLAN FOR INPATIENT GLYCEMIC CONTROL: * Hold outpatient oral diabetes medications * Basal insulin * Lantus 15 units SQ daily * Bolus insulin * NovoLog per scale ACHS or Q6hrs while NPO * Goal Range: Low 110 mg/dL - High 140 mg/dL * Correction Factor: 30 mg/dL/unit * Nutritional / Prandial insulin per carb ratio of 1 unit per 10 grams CHO consumed
[2022-09-18] MEDS ORDERED: INSULIN HUMAN REGULAR PER UNIT 8 UNITS in SYRINGE 7.92 ML IV ONE (12:15)
[2022-09-18] MEDS ORDERED: SODIUM CHLORIDE 0.9% 250 ML IV SCH (12:30)
[2022-09-18] MEDS ORDERED: METOPROLOL TARTRATE 1 MG/ML VIAL IV STA (15:31)
[2022-09-18 16:24] LABS: BUN Creatinine Ratio 24.4 (10-20); Calcium 8.8 mg/dl (8.6-10.3); Creatinine Clr Calc Pharmacy 25.9 ml/min; Est GFR (African American) 28.6 ml/min; Est GFR (Non-African American) 24.7 ml/min; Magnesium 2.4 mg/dl (1.7-2.4); Potassium 4.4 mmol/L (3.5-5.1)
--- NOTE | 2022-09-18 17:04 | XRay Report ---
SINGLE VIEW CHEST CLINICAL HISTORY: Hypoxia. FINDINGS: An AP, portable, upright chest radiograph is compared to chest x-ray dated 09/16/2022 and co rrelated with chest CT dated 09/17/2022. The heart is enlarged indenting atherosclerotic calcification of the thoracic aorta. The pulmonary vasculature is noncongested. Emphysema and chronic interstitial thickening is similar to previous. Extensive sinus multifocal airspace consolidation has not signifi cantly changed from yesterday. This is greatest in the mid to lower lungs. Consolidation partially ob scures a spiculated left upper lobe masslike opacity. This was better assessed on prior CT scans. No large pleural effusion or pneumothorax is seen. The skeletal structures are osteopenic. The bony thor ax is grossly intact. IMPRESSION: 1. Extensive multifocal airspace consolidation is not significantly changed from yesterday. Radiogra [facility] follow-up to resolution is recommended. 2. Cardiomegaly and emphysema. ACT 112: Negative or not required by law. Electronically signed by: Devan Irene M.D. 09/18/2022 5:02 PM
[2022-09-18 18:34] LABS: Appearance Urine Clear (Clear); Bilirubin Urine Negative (Negative); Blood Urine Negative (Negative); Color Urine Yellow; Glucose Urine UA 3+ (Negative); Ketones Urine Negative (Negative); Leukocyte Esterase Urine Negative (Negative); Nitrite Urine Negative (Negative); Protein Urine 1+ (Negative); Specific Gravity Urine 1.021 (1.000-1.030); Urobilinogen Urine Negative (Negative)
[2022-09-18 18:41] LABS: RBC Urine Automated 0-4 /hpf (0-4)
[2022-09-18 18:42] LABS: Bacteria Urine Automated 1+ (Negative)
[2022-09-18] MEDS: ATORVASTATIN 20 MG TAB PO SCH (20:49)
[2022-09-19] MEDS: PIPERACILLIN/TAZOBACTAM 4.5 GM in DEXTROSE 5% 100 ML IV SCH ×3 (01:57→17:15)
[2022-09-19] MEDS: ALBUT/IPRATROP 3MG/0.5MG NEB 3 ML VIAL NEB SCH ×6 (03:14→22:08)
[2022-09-19] MEDS: INSULIN ASPART PER UNIT CHARGE SC SCH ×6 (04:00→21:50)
[2022-09-19 04:55] LABS: Basophils # (auto) 0.03 K/uL (0-0.2); Basophils % (auto) 0.3 %; Eosinophils # (auto) 0.04 K/uL (0-0.50); Eosinophils % (auto) 0.4 %; Hematocrit (blood only) 27.4 % (42.0-52.0); Hemoglobin 8.6 g/dl (14.0-18.0); Immature Granulocytes # (auto) 0.11 K/uL (0.01-0.20); Immature Granulocytes % (auto) 1.1 %; Lymphocytes # (auto) 0.66 K/uL (1.2-3.4); Lymphocytes % (auto) 6.5 %; Mean Corpuscular Hemoglobin 27.4 pg (25.0-34.0); Mean Corpuscular Hgb Conc 31.4 g/dL (32.0-36.0); Mean Corpuscular Volume 87.3 fL (80.0-100.0); Mean Platelet Volume 9.7 fL (9.4-12.4); Monocytes # (auto) 0.52 K/uL (0.11-0.59); Monocytes % (auto) 5.1 %; Neutrophils # (auto) 8.76 K/uL (1.40-6.50); Neutrophils % (auto) 86.6 %; Platelet Count 386 K/uL (130-400); RDW Coefficient of Variation 17.4 % (11.5-14.5); RDW Standard Deviation 54.8 fL (36.4-46.3); Red Blood Count 3.14 M/uL (4.70-6.10); White Blood Count 10.12 K/ul (4.8-10.8)
[2022-09-19 05:11] LABS: Albumin Globulin Ratio 0.9 (0.9-2); Albumin Level 2.8 gm/dl (3.4-5.0); Bilirubin,Total 0.3 mg/dl (0.2-1.0); Calcium 8.2 mg/dl (8.6-10.3); Creatinine Clr Calc Pharmacy 27.4 ml/min; Est GFR (African American) 30.6 ml/min; Est GFR (Non-African American) 26.4 ml/min; Magnesium 2.4 mg/dl (1.7-2.4); Potassium 4.2 mmol/L (3.5-5.1); Total Protein 5.8 gm/dl (6.0-8.3)
[2022-09-19] MEDS: FORMOTEROL 20 MCG/2 ML VIAL INH SCH ×2 (06:56→19:13)
[2022-09-19] MEDS: BUDESONIDE 0.5 MG/2 ML VIAL (PULMICORT) INH SCH ×2 (06:56→19:13)
--- NOTE | 2022-09-19 07:47 | Hospitalist Progress Note ---
Date of Service September 19, 2022 Assessment & Plan (1) Dyspnea: Plan: 77yo male with chronic respiratory failure with hypoxia, end stage COPD on 4L home oxygen, recently discovered VERN spiculated mass measuring 5.4cm concerning for bronchogenic carcinoma, WENDY, CAD, DM, HTN, HLP and CKD-III presenting from [facility] w/ increased O2 requirement and dyspnea. Acute on chronic hypoxic respiratory failure -In setting of probable aspiration pneumonia and end stage COPD -CTA of the chest without PE, multifocal airspace disease suggestive of PNA vs aspiration -Requiring 15L O2 at admission, weaning, currently at 14L -Continue neb treatments - Arformoterol and Budesonide - DuoNeb q 4 hours and Albuterol -Hypertonic saline Nebs BID PRN suspected mucus plugging/chest congestion -Flutter valve -Azithromycin 250mg po daily (changed from home every other day prophylaxis dosing) -Zosyn, continuing, blood cultures with no growth at 48hrs. Tentatively, would transition to PO abx. -Ativan as needed for anxiety -Started methylpred 40 TID Supraventricular tachycardia afternoon of 09/18 -w/ reported hx of SVT -Patient woke up from nap and HR->140s. Lungs w/ noticeable inspiratory crackles. -Reverted to sinus 80s after 1 dose of IV Lopressor -cxr w/o sig change from prior -Repeat intermittent episodes of tachycardia to 130s HR, unprovoked and asymptomatic so will defer treatment of tachycardia. Acute kidney injury on chronic kidney disease -Baseline Cr 1.6s-1.7s, uptrending Cr this admission to 2.46. s/p 1 dose IV Lasix in the ED -Temporarily holding home PO Lasix 40mg qm, 20mg pm. -175mL NSS provided. Follow BMP -Nephrology consulted: Epogen 87945 units x 1 dose today, will check iron study Moderate pulmonary hypertension and chronic HFpEF -Per 09/2022 echo, new from 07/2021 echo. -EF 60-65%. No RWMA. Moderate concentric LVH. Mild RA/RV dilation. Very small pericardial effusion. -Currently holding home regimen Lasix 40 mg p.o. every morning and 20 mg p.o. every afternoon. Obstructive sleep apnea -Patient is noncompliant with CPAP. In setting of moderate pulm hypertension, would recommend readdressing use of CPAP. Coronary artery disease -Continue ASA 81mg po daily -Continue Atorvastatin 20mg po qHS Hypertension -Continue Diltiazem Hyperlipidemia -Continue Atorvastatin DM type 2 Hold oral agents -Lantus and SSI. Pharmacy glycemic consult placed. F/E/N DM2, low Na. Ppx - SQ heparin Code - DNR/DNI Dispo PCU. When medically ready, would dc to home hospice w/ remainder of abx course via PO. (2) Hypoxia: (3) WENDY (obstructive sleep apnea): (4) Coronary artery disease: (5) Hypertension: (6) Hyperlipidemia: (7) DM type 2 (diabetes mellitus, type 2): Admission and Anticipated Discharge Date Admission Date: September 17, 2022 Supervising Physician Co-Signing Physician Notes I personally examined the patient and verified all roca points of history and exam, discussed case, and agree with decision making with Dr Gunn. Seen 3 times todayprogressive dyspnea. This morning not too bad, later this afternoon more short of breath. Heart rate up and down some. Family presentupdated the best my ability and to their satisfaction. Vitals noted, this morning he only showed mild dyspnea his lungs showed scattered rhonchi, this afternoon more coarse rhonchi and bibasilar Rales, third visit the rales had cleared, but rhonchi remained, dyspnea a bit worse. End-stage COPD, pneumonia, COPD exacerbation, pulmonary edema more from COPD and CKD, but also does have HFpEFsteroids, antibiotics, nebulizers, diureticsbut also given his dyspnea and end-stage COPD as well as his desire for hospice/comfort, morphine/Ativan as needed refractory dyspnea. Family appreciative of approach, continue current care. I do wonder if he will be able to make it back to SNF, or if he will end up passing on comfort care here in the hospital given his progression. Family aware of this as well. Subjective 09/19: Patient seen and examined at bedside. Mr. Louie had been down to 10L oxygen requirement but his oxygen saturation dropped to the 80s and he subsequently was increased to 15L high flow nasal cannula. He states he felt a bit "off" but did not feel very short of breath. He has had intermittent episodes of tachycardia to HR of 130s while he has remained asymptomatic. He denies pain anywhere and has been eating/drinking without issue. Denies chest pain, notes some occasional productive cough. Review of Systems Review of Systems: As per above Physical Exam Constitutional: + frail appearing and cooperative Eyes: Anicteric sclerae ENMT: External ears and nose normal. Moist mucous membranes. Respiratory: High flow nasal cannula in place. Scattered rhonchi/wheezes. Occasional cough Cardiovascular: Rate/Rhythm: regular rhythm and + tachycardic +1 lower extremity edema bilaterally Skin: no rashes, warm and dry Psychiatric: A+Ox3, euthymic affect Results & Data Results & Data Vital Signs (Past 12 Hours) Vital Signs Temp Pulse Resp BP Pulse Ox O2 Del Method O2 Flow Rate 09/19/22 06:57 76 20 89 L Nasal Cannula 09/19/22 06:41 90 High Flow Nasal Cannula 10 09/19/22 03:00 36.4 C L 70 21 150/78 H 93 Nasal Cannula 09/19/22 03:17 75 20 89 L Nasal Cannula 09/19/22 00:18 High Flow Nasal Cannula 09/18/22 23:00 36.2 C L 78 20 160/70 H 94 Nasal Cannula 09/18/22 23:06 75 18 88 L Nasal Cannula Resident Activity Tracking Resident Involvement: Resident Care Provided Care Provided: Adult Hospital Medicine (4) Coronary artery disease Associated angina: without angina Coronary Disease-Associated Artery/Lesion type: kake artery [place] vs. transplanted heart: kake heart Qualified Code(s): I25.10 - Atherosclerotic heart disease of kake coronary artery without angina pectoris (5) Hypertension Hypertension type: essential hypertension Qualified Code(s): I10 - Essential (primary) hypertension (6) Hyperlipidemia Hyperlipidemia type: unspecified Qualified Code(s): E78.5 - Hyperlipidemia, unspecified (7) DM type 2 (diabetes mellitus, type 2) Diabetes mellitus complication status: without complication Diabetes mellitus emt intermediate insulin use: without prison use Qualified Code(s): E11.9 - Type 2 diabetes mellitus without complications
[2022-09-19] MEDS: ASPIRIN 81 MG ECTAB PO SCH (09:09)
[2022-09-19] MEDS: AZITHROMYCIN 250 MG TAB PO SCH (09:09)
[2022-09-19] MEDS: PANTOprazole 40 MG TAB PO SCH (09:10)
[2022-09-19] MEDS: dilTIAZem HCL 240 MG CAPCR PO SCH ×2 (09:10→21:51)
[2022-09-19] MEDS: HEPARIN SOD 5,000 UNIT/0.5 ML VIAL SQ SCH ×2 (09:10→21:51)
[2022-09-19] MEDS: LANTUS PER UNIT CHARGE SQ SCH (09:15)
--- NOTE | 2022-09-19 10:18 | Pharmacy Report ---
Pharmacy Glycemic Short Note 2 - Date of Service September 19, 2022 - Glycemic Short BSG Results (Last 24 hours): 09/18/22 09/18/22 09/18/22 11:58 11:59 15:39 Glucose 233 H POC Glucose 341 H* 326 H* 09/18/22 09/18/22 09/18/22 17:05 20:31 23:14 Glucose POC Glucose 207 H 138 H 128 H 09/19/22 09/19/22 09/19/22 04:04 04:11 07:33 Glucose 132 H POC Glucose 165 H 130 H OUTPATIENT ANTIDIABETIC REGIMEN: * Metformin 1 g PO BIDM * Farxiga 10 mg PO daily * Rybelsus 14 mg PO daily HbA1c: 8% (09/05/22) ASSESSMENT: 09/19/22: * BSGs improved following consult yesterday * Patient received 54 units of insulin (15 units of basal, 31 units of SC bolus, and 8 units of IV regular insulin) * Fasting BSG of 130 mg/dL this morning * Did not anticipate changes to insulin regimen today, but Solu-medrol 40 mg IV q8h initiated for this afternoon * Will tighten Novolog and increase basal insulin to equal weight-based stress of 3 dosing 09/18/22: * TS is a 77 year old male who presented to ED overnight on 09/16-09/17 with worsening shortness of breath * Pharmacy consulted for glycemic management this morning (09/18) due to persistently elevated BSGs yesterday * Zosyn + azithromycin ordered, no steroids at this time * Will utilize past inpatient glycemic data to guide initial insulin dosing * Lunch BSG of 326 mg/dL - will give one-time IV insulin bolus PLAN FOR INPATIENT GLYCEMIC CONTROL: * Hold outpatient oral diabetes medications * Basal insulin * Lantus 15 units SC daily this AM * Lantus 25 units SC with first dose of methylprednisolone * Bolus insulin * NovoLog per scale ACHS or Q6hrs while NPO * Goal Range: Low 110 mg/dL - High 140 mg/dL * Correction Factor: 20 mg/dL/unit * Nutritional / Prandial insulin per carb ratio of 1 unit per 7 grams CHO consumed
--- NOTE | 2022-09-19 10:18 | Palliative Care Consultation ---
Date of Consultation September 19, 2022 Assessment & Plan (1) Palliative care by specialist: Met with pt/family. Provided overview of Palliative Medicine, a subspecialty that provides specialized medical care for people living with a serious illness by offering a focus on quality of life. Palliative Medicine is often conflated with hospice: I advised patient/family that Palliative and hospice can be partners but we are not the same. It is important to understand the difference so that we may be informed, and not afraid. Palliative Medicine works to improve QOL through reduction of symptom burden/more control over their illness, for both the patient and family. Palliative medicine clinicians are board certified, specially-trained and another member of the patient's medical care team. We often provide an extra layer of support because our care is based on the needs of the patient, not the prognosis; as such, it's appropriate at any age/advancing stage of a serious illness and can be provided along with curative treatment. Palliative Medicine clinicians are also trained in advanced communication methodologies, to facilitate complex discussions about advanced illness planning, which are needed to help assure that the treatment choices match the patient's goals, aka delivering Goal Concordant care. Finally, we discussed that hospice is a visiting nurse service that focuses on care delivered at the very end of life for patients with terminal illness, with life expectancy less than 6 month. (2) Advanced care planning/counseling discussion: We reviewed that all chronic/progressive disease has a declining trajectory over time where facets of patient self-identity and independence are lost. Every acute event leads to a further decline, resulting- many times, in a new baseline. Advised that the greatest priority is to determine what matters most to pt, then family and to develop a plan of care that is aligned with those priorities. Advance illness planning conversations are conducted to review goals and expectations, support shared decision-making, and engage in disease specific advance care planning. This type of advance care planning is sometimes referred to as 'preparedness planning. It is used to review the risks and benefits of offered therapy, elicit and deepen understanding of the underlying illness and therapeutic options, ensure adequate psychosocial support, address existential concerns and coping, and engage in end-of-life planning. Preparedness planning is not meant to replace informed consent discussions. Palliative medicine plays a role in the process of deepening a patients understanding of this specific medical intervention and ensuring this treatment aligns with their goals of care remains a central tenet of the planning conversation. I met with pt at bedside for approx 20 min. He tells me after speaking with his family, they are all in agreement for no aggressive care, adding that they all understand his COPD is very severe/very late stage and incurable. he tells me he wants more of a focus on comfort. He tells me he decided to return to [facility] with hospice. We reviewed the nature of COPD: the ATS and ERS define COPD as a preventable and treatable disease state characterized by airflow limitation that is not fully reversible. The airflow limitation is usually progressive and associated with a chronic inflammatory response of the lungs to noxious particles or gases. COPD is incurable and will worsen over time. Sometimes when patients stop smoking, the progression will slow down, but all COPD over time will get worse. Medications become less effective and do not work as well; in general these patients experience a significant decline in QOL. Patients with COPD constitute a large group of symptomatic patients with a common, chronic, and generally progressive respiratory disorder. Recent studies indicate that patients in this group, on the whole, receive less palliative care in their terminal phase than patients with lung cancer. We discussed that Palliative care can begin when a patient becomes symptomatic and is usually concurrent with restorative and life- prolonging care. Palliative care is titrated, analogous to curative/restorative care, to meet the needs of the patient and family in accord with their preferences. We will help manage their symptoms and assist with goals of care discussions. We spoke about his worsening dyspnea and a trial of low dose opioid. He was in agreement for a prn order of Roxanol 2.5mg q6h prn but does not want anything scheduled or long acting at this time. (3) Dyspnea and respiratory abnormalities: (4) Generalized weakness: (5) Acute and chronic respiratory failure with hypoxia: (6) Mass of upper lobe of left lung: (7) Acute kidney injury superimposed on CKD: (8) Pulmonary hypertension: (9) WENDY (obstructive sleep apnea): Plan * Low dose opioid trial ordered with Roxanol 2.5mg PO q6h prn * Patient and family would like dc back to [facility] with addition of hospice: CM will coordinate * patient denies any other acute IP sx mgt needs at this time * We will follow along. Thank you for allowing us to participate in the ongoing care of this patient. Please don't hesitate to call or page with any additional concerns. Dr. Nakia Wells DNP Director, Palliative Care History of Present Illness Reason for Consultation: On 09/17/22 @ 05:01 Katlyn Jean Wrote To Nakia Wells end stage copd Attending Physician: Ok Gutierres DO History of Present Illness 77yo male with chronic respiratory failure with hypoxia, end stage COPD on 4L home oxygen, recently discovered VERN spiculated mass measuring 5.4cm concerning for bronchogenic carcinoma, WENDY, CAD, DM, HTN, HLP and CKD-III presenting from [facility] w/ increased O2 requirement and dyspnea. he was last seen by pall med 09/06/22 during that admission currently denies acute dyspnea but notes that any exertion or even conversation makes him winded. Sometimes just eating makes him winded. He denies chest pain. He has no n/v/d/c. No visual changes or lightheadedness. Appetite is great but sometimes limited by dyspnea and notes that with increased SOB will be an elevated HR as well he states he has discussions with family. he does not want aggressive care. he acknowledges he has end stage/very severe COPD and wants more of a focus on comfort. He tells me he decided to return to [facility] with hospice. Allergies Allergy/AdvReac Type Severity Reaction Status Date / Time ALYSSA Inhibitors Allergy Severe ANAPHYLAXIS Verified 09/04/22 10:18 Home Medications Medication Instructions Recorded Confirmed Type albuterol sulfate 90 mcg/actuation 2 puff inhalation Q4 PRN Wheezing 12/14/17 09/16/22 History aerosol inhaler atorvastatin 20 mg tablet 20 mg PO HS 12/14/17 09/16/22 History metformin 1,000 mg tablet 1,000 mg PO BID 12/14/17 09/16/22 History nitroglycerin 0.4 mg sublingual 0.4 mg sublingual DIRECTED PRN 12/14/17 09/16/22 History tablet Chest Pain Oxygen Home #1 ea 11/13/18 06/17/22 History aspirin 81 mg tablet,delayed 81 mg PO Q OTHER DAY 11/27/18 09/16/22 History release ascorbic acid (vitamin C) 1,000 mg 1 gm PO QAM 06/05/19 09/16/22 History tablet tiotropium bromide 2.5 2 puff inhalation QAM 10/16/20 09/16/22 History mcg/actuation mist for inhalation (Spiriva Respimat) pantoprazole 20 mg tablet,delayed 20 mg PO DAILY 07/07/21 09/16/22 History release ferrous sulfate 325 mg (65 mg 325 mg PO Q OTHER DAY 08/11/21 09/16/22 History iron) tablet (Feosol) mecobalamin (vitamin B12) 1,000 1,000 mcg PO DAILY 10/30/21 09/16/22 History mcg chewable tablet diltiazem HCl 240 mg 240 mg PO BID 12/20/21 09/16/22 History capsule,extended release 24 hr Portable Oxygen #1 ea 02/17/22 06/17/22 Rx arformoterol 15 mcg/2 mL solution 2 ml inhalation BID #120 mL 05/13/22 09/16/22 Rx for nebulization dapagliflozin propanediol 10 mg 10 mg PO QAM 05/13/22 09/16/22 History tablet (Farxiga) semaglutide 14 mg tablet (Rybelsus) 14 mg PO QAM 05/13/22 09/16/22 History budesonide 0.5 mg/2 mL suspension 0.5 mg (2 mL) inhalation BID #120 06/09/22 09/16/22 Rx for nebulization mL furosemide 20 mg tablet 20 mg PO .COMPLEX #270 tabs 07/21/22 09/16/22 Rx magnesium oxide 400 mg PO BID 09/04/22 09/16/22 History sodium zirconium cyclosilicate 5 5 g PO 3XWK 09/04/22 09/16/22 History gram oral powder packet (Lokelma) azithromycin 250 mg tablet 250 mg PO Q OTHER DAY 30 days #15 09/09/22 09/16/22 Rx tabs Patient History Medical History (Updated 09/19/22 @ 10:17 by Nakia Wells DNP) Abnormal CT scan, chest Advanced care planning/counseling discussion BPH with obstruction/lower urinary tract symptoms CAD (coronary artery disease) CKD (chronic kidney disease) stage 3, GFR 30-59 ml/min COPD (chronic obstructive pulmonary disease) not well controlled per pt > worse this time of year with humidity DM type 2 (diabetes mellitus, type 2) NIDDM Dyspnea and respiratory abnormalities Goals of care, counseling/discussion H/O pulmonary emphysema History of arthritis History of cardioversion 2009> SVT History of heart attack pt unaware of this History of nicotine dependence Hyperlipidemia Hypertension Hypomagnesemia Iron deficiency anemia due to chronic blood loss Multiple pulmonary nodules determined by computed tomography of lung On home oxygen therapy 3 LPM continuous WENDY (obstructive sleep apnea) no cpap > O2 continuous Palliative care by specialist Peripheral neuropathy Pneumonia Apr 2019 Pulmonary air trapping Pulmonary air trapping Renal cyst just monitoring Renal cyst SVT (supraventricular tachycardia) dx 2009> diltiazem for this > controlled Surgical History History of bone marrow biopsy July 2019 > checking due to anemia History of cardiac cath 2009 > no stents History of colonoscopy History of esophagogastroduodenoscopy (EGD) History of nasal surgery Status post cataract extraction of both eyes with insertion of intraocular lens [place] teeth extracted Family History Father Diabetes Mother Diabetes Hypertension Other Brain tumor Depression Stroke Social History Smoking Status: Former smoker Tobacco Type: Cigarettes Age Started Using Tobacco: 20; packs per day: 1.0; Second Hand Exposure: No; Do You Dip or Chew Tobacco: No; Hx Alcohol Use: No Hx Substance Use: No Preferred Language: Bulgarian Communication Ability: Effective Winder Fixer Required: No Beliefs That Will Affect Care: None Current Living Situation: Alone Current Living Situation Comment: home alone Other Information That Helps Us Care for You: No Feels Safe at Home: Yes Safety Concerns: Feels Safe At This Time Assistive Devices: Oxygen - Continuous Review of Systems Review of Systems: All systems reviewed & are unremarkable except as noted in Subjective Physical Exam Physical Exam: Eating lunch, sitting at edge of bed acutely dyspneic with +use of accessory muscles and +conversational dyspnea diminished lung lozoya no gross JVD some belly breathing skin pale but warm, no cyanosis mod BLE edema Results & Data Vital Signs (Past 12 Hours) Vital Signs Temp Pulse Pulse Resp BP Pulse Ox O2 Del Method 09/19/22 10:00 90 High Flow Nasal Cannula 09/19/22 08:05 36.5 C 76 22 156/75 H 86 L High Flow Nasal Cannula 09/19/22 07:30 Nasal Cannula 09/19/22 07:30 73 09/19/22 06:57 76 20 89 L Nasal Cannula 09/19/22 06:41 90 High Flow Nasal Cannula 09/19/22 03:00 36.4 C L 70 21 150/78 H 93 Nasal Cannula 09/19/22 03:17 75 20 89 L Nasal Cannula 09/19/22 00:18 High Flow Nasal Cannula 09/18/22 23:00 36.2 C L 78 20 160/70 H 94 Nasal Cannula 09/18/22 23:06 75 18 88 L Nasal Cannula O2 Flow Rate 09/19/22 10:00 15 09/19/22 08:05 12 09/19/22 07:30 15 09/19/22 07:30 09/19/22 06:57 12 09/19/22 06:41 10 09/19/22 03:00 09/19/22 03:17 09/19/22 00:18 09/18/22 23:00 12 09/18/22 23:06 Laboratory Results data reviewed Diagnostic Findings data reviewed PG Care Time/CCT Total # of Minutes Spent Total Time Spent: 70 Total Time Spent with Patient: Total time spent is greater than 50% in coordination of care (as documented) at patient's floor/unit and/or counseling patient: I spent 70 minutes overall addressing this case: 15 in medical data review/discussion with referring provider(s) and/or preparation for the visit 20 in direct interaction with the patient 15 Advance Care Planning/Goals of Care discussions as detailed above in note (must be >16min) 10 in subsequent review and synthesis of assessment and plan 10 in communicating with other providers regarding the patient's case: [] [place] [address] IN/OBS CONSULT LVL 5,80M Patient Type New History Comprehensive Exam Comprehensive Medical Decision Making Moderate Complexity Diagnoses Palliative care by specialist Z51.5 Advanced care planning/counseling discussion Z71.89 Dyspnea and respiratory abnormalities R06.00; R06.89 Generalized weakness R53.1 Acute and chronic respiratory failure with hypoxia J96.21 Mass of upper lobe of left lung R91.8 Acute kidney injury superimposed on CKD N17.9; N18.9 Pulmonary hypertension I27.20 WENDY (obstructive sleep apnea) G47.33
--- NOTE | 2022-09-19 13:05 | Electrocardiogram Report ---
Test Reason : Blood Pressure : / mmHG Vent. Rate : 134 BPM Atrial Rate : 147 BPM P-R Int : 000 ms QRS Dur : 096 ms QT Int : 324 ms P-R-T Axes : 000 089 006 degrees QTc Int : 483 ms Supraventricular tachycardia with occasional Premature ventricular complexes Nonspecific ST abnormality Abnormal ECG When compared with ECG of 16-SEP-2022 22:49, Premature ventricular complexes are now Present Premature atrial complexes are no longer Present Confirmed by Jonathan Doherty ([id number]) on 09/19/2022 1:05:13 PM [facility] Confirmed By:Jonathan Doherty
[2022-09-19] MEDS ORDERED: MoRPHine SULFATE 10 MG/0.5 ML UDP PO PRN (13:13)
[2022-09-19] MEDS: methylPREDNISolone 40 MG in SYRINGE 0 ML IV SCH ×2 (13:39→21:51)
[2022-09-19] MEDS ORDERED: LANTUS PER UNIT CHARGE SQ ONE (14:00)
--- NOTE | 2022-09-19 16:00 | Nephrology Consultation ---
Date of Consultation September 19, 2022 Assessment & Plan (1) Acute kidney injury: (2) Hypoxia: (3) Anemia: (4) COPD exacerbation: (5) Mass of upper lobe of left lung: Plan 77-year-old gentleman with end-stage COPD, recent finding of lung mass, admitted to the hospital with hypoxic respiratory failure and COPD exacerbation. Has stage IIIB CKD, baseline creatinine 1.5-1.6, on admission creatinine peaked to 2.5 with slightly improved to 2.3. Received 1 dose of IV Lasix on admission but has been on hold since. Hypoxic respiratory failure most likely secondary to underlying end-stage COPD, less likely pulmonary edema. -- would continue to hold diuretic, monitor intake and output closely and use as needed if significantly positive -- give Epogen 03438 units x 1 dose today, will check iron study -- overall prognosis remains poor will follow Thank you for allowing me to participate in your patient's care. It was a pleasure to see Vladislav. History of Present Illness Reason for Consultation: RICHIE, CKD Attending Physician: Ok Gutierres DO History of Present Illness Mr. Kristopher Louie is a 77 year-old male with stage 3B CKD ~1.5 to 1.6 mg/dL, end stage COPD, admitted with COPD as exacerbation. Nephrology is consult was requested for management of RICHIE with underlying CKD. EMR records are reviewed in detail during patient's visit. Vladislav presented to ER on 09/17/22 with progressive worsening of underlying shortness of breath. He was hypoxic upon arrival to the ER, tachycardic and tachypneic. He was maintained on NRB 15L and administered 0.5mg of Ativan which improved his HR and respiratory distress. currently he is on the14 L of HF oxygen via NC. he was given initially 80 mg of IV Lasix which was stopped. at home he has been taking Lasix 40 mg in a.m. and 20 mg p.m. On admission creatinine was 2.1 which rapidly increased to 2.5. repeat labs this morning showed creatinine slightly improved to 2.3. Hemoglobin has been low around 8.5- 8.6, He generally gets Procrit with Hematology. He was recently admitted to [facility] from 09/04/22 - 09/09/22 after presenting with SOB and treated for a COPD exacerbation and discharged home in stable condition. He was started on Azithromycin 250mg po QOD for his COPD. Has stage IIIB CKD baseline creatinine 1.5-1.6 with grade proteinuria around 400 mg in 24 hour urine with history of hypertension, diabetes, severe COPD. Prior renal imaging was otherwise unremarkable. He was also found to have lung mass recently and decided to go on hospice as he would not tolerate any kind of surgery due to underlying advanced COPD. has long history of smoking. PMH also Significant for WENDY treated with CPAP, anemia with iron deficiency (colonoscopy normal 2 years ago), and chronic HFpEF. RAAS blockade previously held due to a history of hyperkalemia and reported angioedema with ACEi. Labs this morning showed creatinine slightly improved to 2.3, electrolyte acceptable. Blood pressure remained well controlled. Continues to have significant shortness of breath with minimum activity and requiring 14 L of high-flow nasal cannula oxygen Allergies Allergy/AdvReac Type Severity Reaction Status Date / Time ALYSSA Inhibitors Allergy Severe ANAPHYLAXIS Verified 09/04/22 10:18 Home Medications Medication Instructions Recorded Confirmed Type albuterol sulfate 90 mcg/actuation 2 puff inhalation Q4 PRN Wheezing 12/14/17 09/16/22 History aerosol inhaler atorvastatin 20 mg tablet 20 mg PO HS 12/14/17 09/16/22 History metformin 1,000 mg tablet 1,000 mg PO BID 12/14/17 09/16/22 History nitroglycerin 0.4 mg sublingual 0.4 mg sublingual DIRECTED PRN 12/14/17 09/16/22 History tablet Chest Pain Oxygen Home #1 ea 11/13/18 06/17/22 History aspirin 81 mg tablet,delayed 81 mg PO Q OTHER DAY 11/27/18 09/16/22 History release ascorbic acid (vitamin C) 1,000 mg 1 gm PO QAM 06/05/19 09/16/22 History tablet tiotropium bromide 2.5 2 puff inhalation QAM 10/16/20 09/16/22 History mcg/actuation mist for inhalation (Spiriva Respimat) pantoprazole 20 mg tablet,delayed 20 mg PO DAILY 07/07/21 09/16/22 History release ferrous sulfate 325 mg (65 mg 325 mg PO Q OTHER DAY 08/11/21 09/16/22 History iron) tablet (Feosol) mecobalamin (vitamin B12) 1,000 1,000 mcg PO DAILY 10/30/21 09/16/22 History mcg chewable tablet diltiazem HCl 240 mg 240 mg PO BID 12/20/21 09/16/22 History capsule,extended release 24 hr Portable Oxygen #1 ea 02/17/22 06/17/22 Rx arformoterol 15 mcg/2 mL solution 2 ml inhalation BID #120 mL 05/13/22 09/16/22 Rx for nebulization dapagliflozin propanediol 10 mg 10 mg PO QAM 05/13/22 09/16/22 History tablet (Farxiga) semaglutide 14 mg tablet (Rybelsus) 14 mg PO QAM 05/13/22 09/16/22 History budesonide 0.5 mg/2 mL suspension 0.5 mg (2 mL) inhalation BID #120 06/09/22 09/16/22 Rx for nebulization mL furosemide 20 mg tablet 20 mg PO .COMPLEX #270 tabs 07/21/22 09/16/22 Rx magnesium oxide 400 mg PO BID 09/04/22 09/16/22 History sodium zirconium cyclosilicate 5 5 g PO 3XWK 09/04/22 09/16/22 History gram oral powder packet (Lokelma) azithromycin 250 mg tablet 250 mg PO Q OTHER DAY 30 days #15 09/09/22 09/16/22 Rx tabs Patient History Medical History (Updated 09/19/22 @ 16:04 by Ange Rodriguez MD) Abnormal CT scan, chest Acute kidney injury Advanced care planning/counseling discussion BPH with obstruction/lower urinary tract symptoms CAD (coronary artery disease) CKD (chronic kidney disease) stage 3, GFR 30-59 ml/min COPD (chronic obstructive pulmonary disease) not well controlled per pt > worse this time of year with humidity DM type 2 (diabetes mellitus, type 2) NIDDM Dyspnea and respiratory abnormalities Goals of care, counseling/discussion H/O pulmonary emphysema History of arthritis History of cardioversion 2009> SVT History of heart attack pt unaware of this History of nicotine dependence Hyperlipidemia Hypertension Hypomagnesemia Iron deficiency anemia due to chronic blood loss Multiple pulmonary nodules determined by computed tomography of lung On home oxygen therapy 3 LPM continuous WENDY (obstructive sleep apnea) no cpap > O2 continuous Palliative care by specialist Peripheral neuropathy Pneumonia Apr 2019 Pulmonary air trapping Pulmonary air trapping Renal cyst just monitoring Renal cyst SVT (supraventricular tachycardia) dx 2009> diltiazem for this > controlled Surgical History History of bone marrow biopsy July 2019 > checking due to anemia History of cardiac cath 2009 > no stents History of colonoscopy History of esophagogastroduodenoscopy (EGD) History of nasal surgery Status post cataract extraction of both eyes with insertion of intraocular lens [place] teeth extracted Family History Father Diabetes Mother Diabetes Hypertension Other Brain tumor Depression Stroke Social History Smoking Status: Former smoker Tobacco Type: Cigarettes Age Started Using Tobacco: 20; packs per day: 1.0; Second Hand Exposure: No; Do You Dip or Chew Tobacco: No; Hx Alcohol Use: No Hx Substance Use: No Preferred Language: [place]uneian Communication Ability: Effective Glass Bender Required: No Beliefs That Will Affect Care: None Current Living Situation: Alone Current Living Situation Comment: home alone Other Information That Helps Us Care for You: No Feels Safe at Home: Yes Safety Concerns: Feels Safe At This Time Assistive Devices: Oxygen - Continuous Review of Systems Review of Systems: Detail ROS was unremarkable. Physical Exam Constitutional: WD/WN, vitals as above no acute distress Eyes: + anicteric sclerae Neck: normal visual inspection Thyroid: no thyromegaly Respiratory: + respiratory distress Auscultation: + diminished lung sounds and + rhonchi Cardiovascular: RRR, no murmur, no edema Gastrointestinal (Abdomen): Inspection/Auscultation: abdomen normal to inspection Percussion/Palpation: abdomen soft; abdomen nontender Musculoskeletal: Extremities: extremities normal to inspection Skin: no rashes, warm and dry Neurologic: no focal motor deficits and not confused Psychiatric: Orientation: alert and oriented x 3 Affect: euthymic affect Results & Data Vital Signs (Past 12 Hours) Vital Signs Temp Pulse Pulse Resp BP Pulse Ox O2 Del Method 09/19/22 15:48 36.5 C 131 H 22 127/75 88 L High Flow Nasal Cannula 09/19/22 15:23 86 20 91 Nasal Cannula 09/19/22 11:52 36.3 C L 75 18 153/78 H 97 Other 09/19/22 11:12 87 20 97 Nasal Cannula 09/19/22 10:00 90 High Flow Nasal Cannula 09/19/22 08:05 36.5 C 76 22 156/75 H 86 L High Flow Nasal Cannula 09/19/22 07:30 Nasal Cannula 09/19/22 07:30 73 09/19/22 06:57 76 20 89 L Nasal Cannula 09/19/22 06:41 90 High Flow Nasal Cannula O2 Flow Rate 09/19/22 15:48 14 09/19/22 15:23 14 09/19/22 11:52 09/19/22 11:12 15 09/19/22 10:00 15 09/19/22 08:05 12 09/19/22 07:30 15 09/19/22 07:30 09/19/22 06:57 12 09/19/22 06:41 10 PG Care Time/CCT Total # of Minutes Spent Total Time Spent with Patient: Total time spent is greater than 50% in coordination of care (as documented) at patient's floor/unit and/or counseling patient: Coding Level of Care Code 58203 INT INP/OBS CARE 3/75MIN Diagnoses Acute kidney injury N17.9 Hypoxia R09.02 Anemia D64.9 COPD exacerbation J44.1 Mass of upper lobe of left lung R91.8
[2022-09-19] MEDS ORDERED: EPOETIN ALFA 40,000 UNITS/ML VIAL SQ STA (16:18)
[2022-09-19] MEDS ORDERED: FUROSEMIDE 40 MG/4 ML VIAL IV ONE (16:30)
[2022-09-19] MEDS ORDERED: METOPROLOL TARTRATE 1 MG/ML VIAL IV STA (19:11)
[2022-09-19] MEDS ORDERED: MoRPHine SULFATE 2 MG/ML CARP IV PRN (19:15)
[2022-09-19] MEDS ORDERED: LORazepam 2 MG/1 ML VIAL IV PRN (19:15)
[2022-09-19] MEDS ORDERED: METOPROLOL TARTRATE 1 MG/ML VIAL IV PRN (19:18)
--- NOTE | 2022-09-19 19:18 | Billing Data ---
Date of Service September 19, 2022 Coding Level of Care Code 69186 SUB INP/OBS CARE MIN
[2022-09-19] MEDS: ATORVASTATIN 20 MG TAB PO SCH (21:51)
[2022-09-20] MEDS: PIPERACILLIN/TAZOBACTAM 4.5 GM in DEXTROSE 5% 100 ML IV SCH ×3 (02:14→17:29)
[2022-09-20] MEDS: ALBUT/IPRATROP 3MG/0.5MG NEB 3 ML VIAL NEB SCH ×6 (02:27→23:11)
[2022-09-20 05:04] LABS: Hematocrit (blood only) 28.7 % (42.0-52.0); Hemoglobin 8.9 g/dl (14.0-18.0); Mean Corpuscular Hemoglobin 27.1 pg (25.0-34.0); Mean Corpuscular Volume 87.2 fL (80.0-100.0); Mean Platelet Volume 9.9 fL (9.4-12.4); Platelet Count 361 K/uL (130-400); RDW Coefficient of Variation 17.5 % (11.5-14.5); RDW Standard Deviation 55.2 fL (36.4-46.3); Red Blood Count 3.29 M/uL (4.70-6.10); White Blood Count 5.23 K/ul (4.8-10.8)
[2022-09-20 05:27] LABS: Albumin Level 2.9 gm/dl (3.4-5.0); BUN Creatinine Ratio 25.6 (10-20); Calcium 8.1 mg/dl (8.6-10.3); Creatinine Clr Calc Pharmacy 22.4 ml/min; Est GFR (African American) 23.9 ml/min; Est GFR (Non-African American) 20.7 ml/min; Phosphorus 5.4 mg/dl (2.5-4.9); Potassium 4.7 mmol/L (3.5-5.1)
[2022-09-20 05:47] LABS: Ferritin 414.8 ng/ml (8-388)
--- NOTE | 2022-09-20 07:18 | Hospitalist Progress Note ---
Date of Service September 20, 2022 Assessment & Plan (1) Dyspnea: Plan: 77yo male with chronic respiratory failure with hypoxia, end stage COPD on 4L home oxygen, recently discovered VERN spiculated mass measuring 5.4cm concerning for bronchogenic carcinoma, WENDY, CAD, DM, HTN, HLP and CKD-III presenting from [facility] w/ increased O2 requirement and dyspnea. Acute on chronic hypoxic respiratory failure -In setting of probable aspiration pneumonia and end stage COPD -CTA of the chest without PE, multifocal airspace disease suggestive of PNA vs aspiration -Requiring 15L O2 at admission, weaning, currently at 14L -Continue neb treatments - Arformoterol and Budesonide - DuoNeb q 4 hours and Albuterol -Hypertonic saline Nebs BID PRN suspected mucus plugging/chest congestion -Flutter valve -Azithromycin 250mg po daily (changed from home every other day prophylaxis dosing) -Zosyn, continuing, blood cultures with no growth at 48hrs. Tentatively, would transition to PO abx. -Ativan as needed for anxiety, notes he slept very well last night after receiving Ativan -Started methylpred 40 TID Supraventricular tachycardia afternoon of 09/18 -w/ reported hx of SVT -Patient woke up from nap and HR->140s. Lungs w/ noticeable inspiratory crackles. -Reverted to sinus 80s after 1 dose of IV Lopressor -cxr w/o sig change from prior -Repeat intermittent episodes of tachycardia to 130s HR, unprovoked and asym ptomatic -Patient received additional 5mg IV Lopressor last night, now on 2.5mg IV Lopressor q4h PRN -HR in 70s-80s this morning Acute kidney injury on chronic kidney disease -Baseline Cr 1.6s-1.7s, uptrending Cr this admission to 2.46. s/p 1 dose IV Lasix in the ED -Temporarily holding home PO Lasix 40mg qm, 20mg pm. -175mL NSS provided. Follow BMP -Nephrology consulted: Epogen 53778 units x 1 dose yesterday, iron study: -Receiving iron today -Due to increased work of breathing yesterday afternoon, received 1x dose of Lasix Moderate pulmonary hypertension and chronic HFpEF -Per 09/2022 echo, new from 07/2021 echo. -EF 60-65%. No RWMA. Moderate concentric LVH. Mild RA/RV dilation. Very small pericardial effusion. -Currently holding home regimen Lasix 40 mg p.o. every morning and 20 mg p.o. every afternoon. Obstructive sleep apnea -Patient is noncompliant with CPAP. In setting of moderate pulm hypertension, would recommend readdressing use of CPAP. Coronary artery disease -Continue ASA 81mg po daily -Continue Atorvastatin 20mg po qHS Hypertension -Continue Diltiazem Hyperlipidemia -Continue Atorvastatin DM type 2 Hold oral agents -Lantus and SSI. Pharmacy glycemic consult placed. F/E/N DM2, low Na. Ppx - SQ heparin Code - DNR/DNI Dispo PCU. When medically ready, would dc to home hospice w/ remainder of abx course via PO. (2) Hypoxia: (3) WENDY (obstructive sleep apnea): (4) Coronary artery disease: (5) Hypertension: (6) Hyperlipidemia: (7) DM type 2 (diabetes mellitus, type 2): Admission and Anticipated Discharge Date Admission Date: September 17, 2022 Supervising Physician Co-Signing Physician Notes I personally examined the patient and verified all roca points of history and exam, discussed case, and agree with decision making with Dr Gunn. breathing feeling better today. son present at bedside as well. no new issues otherwise, still requiring high flow Vitals noted,pleasant nad fatigued breathing unlabored no accessory muscles good effort skin no rashes no pallor or icterus End-stage COPD, pneumonia, COPD exacerbation, pulmonary edema more from COPD and CKD, but also does have HFpEFsteroids, antibiotics, nebulizers, diureticsbut also given his dyspnea and end-stage COPD as well as his desire for hospi ce/comfort, morphine/Ativan as needed refractory dyspnea. dyspnea much better today- probably from steroids and lasix, but definitely still appears to need higher O2 for comfort than SNF can provide. Family appreciative of approach, continue current care. I do wonder if he will be able to make it back to SNF, or if he will end up passing on comfort care here in the hospital given his progression. Family aware of this as well. Subjective 09/20: Patient was seen and examined at bedside. He states that he slept well last night after receiving the Ativan. He remains on 15L NC but feels more comfortable this morning- he was sitting upright at his bedside writing out birthday cards. He denies chest pain, has occasional cough. Review of Systems Review of Systems: As per above Physical Exam Constitutional: + frail appearing and cooperative Eyes: Anicteric sclerae ENMT: External ears and nose normal. Moist mucous membranes. Respiratory: No respiratory distress. Few scattered rhonchi, no rales. Cardiovascular: Rate/Rhythm: regular rate and regular rhythm Skin: no rashes, warm and dry Psychiatric: A+Ox3, euthymic affect Results & Data Results & Data Vital Signs (Past 12 Hours) Vital Signs Temp Pulse Pulse Resp BP BP Pulse Ox 09/20/22 03:50 36.5 C 79 19 161/75 H 95 09/20/22 02:27 89 24 89 L 09/20/22 00:03 09/19/22 22:35 36.4 C L 82 18 153/76 H 93 09/19/22 22:09 85 18 89 L 09/19/22 20:03 36.6 C 80 20 134/76 92 09/19/22 19:36 128 H 127/75 O2 Del Method O2 Flow Rate 09/20/22 03:50 High Flow Nasal Cannula 15 09/20/22 02:27 Nasal Cannula 15 09/20/22 00:03 High Flow Nasal Cannula 09/19/22 22:35 Room Air, High Flow Nasal Cannula 15 09/19/22 22:09 Nasal Cannula 15 09/19/22 20:03 High Flow Nasal Cannula 15 09/19/22 19:36 Resident Activity Tracking Resident Involvement: Resident Care Provided Care Provided: Adult Hospital Medicine (4) Coronary artery disease Associated angina: without angina Coronary Disease-Associated Artery/Lesion type: [place] artery [place] vs. transplanted heart: [place] heart Qualified Code(s): I25.10 - Atherosclerotic heart disease of [place] coronary artery without angina pectoris (5) Hypertension Hypertension type: essential hypertension Qualified Code(s): I10 - Essential (primary) hypertension (6) Hyperlipidemia Hyperlipidemia type: unspecified Qualified Code(s): E78.5 - Hyperlipidemia, unspecified (7) DM type 2 (diabetes mellitus, type 2) Diabetes mellitus complication status: without complication Diabetes mellitus custodial insulin use: without intermodal customer service use Qualified Code(s): E11.9 - Type 2 diabetes mellitus without complications
[2022-09-20] MEDS: FORMOTEROL 20 MCG/2 ML VIAL INH SCH ×2 (07:45→19:44)
[2022-09-20] MEDS: BUDESONIDE 0.5 MG/2 ML VIAL (PULMICORT) INH SCH ×2 (07:45→19:43)
[2022-09-20] MEDS ORDERED: LANTUS PER UNIT CHARGE SQ ONE ×2 (08:00→16:30)
[2022-09-20] MEDS: INSULIN ASPART PER UNIT CHARGE SC SCH ×4 (08:59→20:49)
[2022-09-20] MEDS ORDERED: IRON SUCROSE 200 MG in 0.9 % SODIUM CHLORIDE 100 ML IV SCH (09:00)
[2022-09-20] MEDS: methylPREDNISolone 40 MG in SYRINGE 0 ML IV SCH ×3 (09:00→20:42)
[2022-09-20] MEDS: dilTIAZem HCL 240 MG CAPCR PO SCH ×2 (09:01→20:41)
[2022-09-20] MEDS: AZITHROMYCIN 250 MG TAB PO SCH (09:01)
[2022-09-20] MEDS: HEPARIN SOD 5,000 UNIT/0.5 ML VIAL SQ SCH ×2 (09:01→20:42)
[2022-09-20] MEDS: PANTOprazole 40 MG TAB PO SCH (09:01)
[2022-09-20 09:57] LABS: Urea Nitrogen, Random Urine 448 mg/dL
--- NOTE | 2022-09-20 16:05 | Nephrology Progress Note ---
Date of Service September 20, 2022 Assessment & Plan (1) Acute kidney injury: (2) Hypoxia: (3) Anemia: (4) COPD exacerbation: (5) Mass of upper lobe of left lung: Plan 77-year-old gentleman with end-stage COPD, recent finding of lung mass, admitted to the hospital with hypoxic respiratory failure and COPD exacerbation. Has stage IIIB CKD, baseline creatinine 1.5-1.6, on admission creatinine peaked to 2.5 with slightly improved to 2.3. Received 1 dose of IV Lasix on admission but has been on hold since. Hypoxic respiratory failure most likely secondary to underlying end-stage COPD, less likely pulmonary edema. Slight worsening of renal function, creatinine 2.9, electrolyte acceptable. Net negative. hemoglobin low, iron study showed iron deficiency. -- Start on Venofer 200 mg IV daily for total 5 doses. -- monitor intake and output closely and Okay to use diuretics as needed if significantly positive -- Epogen 55932 units x 1 dose on 09/19/22 -- overall prognosis remains poor will follow Admission and Anticipated Discharge Date Admission Date: September 17, 2022 Subjective Vladislav was seen this morning. Overall he feels better, had a good night sleep after he received Ativan. still requiring high-flow nasal cannula oxygen although he has decent urine output more than 2 L and net negative around 500 mL after receiving 1 dose of Lasix yesterday afternoon. Slight worsening of renal function noted, creatinine was 2.9 this morning. Blood pressure has been variable but mostly high. Review of Systems Review of Systems: Detail ROS was unremarkable. Physical Exam Constitutional: WD/WN, vitals as above no acute distress Respiratory: Auscultation: + diminished lung sounds and + rhonchi Cardiovascular: RRR, no murmur, no edema Skin: no rashes, warm and dry Neurologic: no focal motor deficits and not confused Psychiatric: Orientation: alert and oriented x 3 Affect: euthymic affect Results & Data Vital Signs (Past 12 Hours) Vital Signs Temp Pulse Pulse Resp BP Pulse Ox O2 Del Method 09/20/22 15:30 75 18 96 Nasal Cannula 09/20/22 11:22 36.3 C L 87 20 158/65 H 92 High Flow Nasal Cannula 09/20/22 10:59 79 18 94 Nasal Cannula 09/20/22 09:58 High Flow Nasal Cannula 06/20/23 09:58 70 09/20/22 07:58 36.9 C 77 20 131/62 92 High Flow Nasal Cannula 09/20/22 07:46 81 18 91 Nasal Cannula O2 Flow Rate 09/20/22 15:30 15 09/20/22 11:22 15 09/20/22 10:59 15 09/20/22 09:58 15 09/20/22 09:58 09/20/22 07:58 15 09/20/22 07:46 15 PG Care Time/CCT Total # of Minutes Spent Total Time Spent with Patient: Total time spent is greater than 50% in coordination of care (as documented) at patient's floor/unit and/or counseling patient: Coding Level of Care Code 17791 SUB INP/OBS CARE 3/50MIN Diagnoses Acute kidney injury N17.9 Hypoxia R09.02 Anemia D64.9 COPD exacerbation J44.1 Mass of upper lobe of left lung R91.8
--- NOTE | 2022-09-20 16:15 | Billing Data ---
Date of Service September 20, 2022 Coding Level of Care Code 20342 SUB INP/OBS CARE MIN
[2022-09-20] MEDS ORDERED: LORazepam 2 MG/1 ML VIAL IV PRN (18:19)
[2022-09-20] MEDS ORDERED: METOPROLOL TARTRATE 1 MG/ML VIAL IV PRN (18:20)
[2022-09-20] MEDS: ATORVASTATIN 20 MG TAB PO SCH (20:41)
[2022-09-21] MEDS: PIPERACILLIN/TAZOBACTAM 4.5 GM in DEXTROSE 5% 100 ML IV SCH ×3 (01:04→17:11)
[2022-09-21] MEDS: ALBUT/IPRATROP 3MG/0.5MG NEB 3 ML VIAL NEB SCH ×6 (02:22→23:08)
[2022-09-21 05:49] LABS: Hematocrit (blood only) 29.2 % (42.0-52.0); Hemoglobin 9.2 g/dl (14.0-18.0); Mean Corpuscular Hemoglobin 27.1 pg (25.0-34.0); Mean Corpuscular Hgb Conc 31.5 g/dL (32.0-36.0); Mean Corpuscular Volume 86.1 fL (80.0-100.0); Mean Platelet Volume 9.9 fL (9.4-12.4); Nucleated RBC # (auto) 0.04 K/uL (0-0.12); Nucleated RBC % (auto) 0.5 %; Platelet Count 356 K/uL (130-400); RDW Coefficient of Variation 17.3 % (11.5-14.5); RDW Standard Deviation 54.3 fL (36.4-46.3); Red Blood Count 3.39 M/uL (4.70-6.10); White Blood Count 7.77 K/ul (4.8-10.8)
[2022-09-21 06:05] LABS: BUN Creatinine Ratio 26.7 (10-20); Calcium 8.3 mg/dl (8.6-10.3); Creatinine Clr Calc Pharmacy 23.4 ml/min; Est GFR (African American) 25.2 ml/min; Est GFR (Non-African American) 21.8 ml/min; Magnesium 2.5 mg/dl (1.7-2.4); Potassium 3.8 mmol/L (3.5-5.1)
[2022-09-21 06:07] LABS: Basophils # (auto) 0.03 K/uL (0-0.2); Basophils % (auto) 0.4 %; Immature Granulocytes # (auto) 0.55 K/uL (0.01-0.20); Immature Granulocytes % (auto) 7.1 %; Lymphocytes # (auto) 0.34 K/uL (1.2-3.4); Lymphocytes % (auto) 4.4 %; Monocytes % (auto) 1.3 %; Neutrophils # (auto) 6.75 K/uL (1.40-6.50); Neutrophils % (auto) 86.8 %; Ovalocytes 1+
[2022-09-21] MEDS: FORMOTEROL 20 MCG/2 ML VIAL INH SCH ×2 (07:15→19:22)
[2022-09-21] MEDS: BUDESONIDE 0.5 MG/2 ML VIAL (PULMICORT) INH SCH ×2 (07:16→19:22)
--- NOTE | 2022-09-21 07:33 | Hospitalist Progress Note ---
Date of Service September 21, 2022 Assessment & Plan (1) Dyspnea: Plan: 77yo male with chronic respiratory failure with hypoxia, end stage COPD on 4L home oxygen, recently discovered VERN spiculated mass measuring 5.4cm concerning for bronchogenic carcinoma, WENDY, CAD, DM, HTN, HLP and CKD-III presenting from [facility] w/ increased O2 requirement and dyspnea. Acute on chronic hypoxic respiratory failure -In setting of probable aspiration pneumonia and end stage COPD -CTA of the chest without PE, multifocal airspace disease suggestive of PNA vs aspiration -Requiring 15L O2 at admission, currently at 15L -Continue neb treatments - Arformoterol and Budesonide - DuoNeb q 4 hours and Albuterol -Hypertonic saline Nebs BID PRN suspected mucus plugging/chest congestion -Flutter valve -Azithromycin 250mg po daily (changed from home every other day prophylaxis dosing) -Zosyn, continuing, blood cultures with no growth at 48hrs. Tentatively, could transition to PO abx. -Methylpred 40 TID * Ativan q2h PRN, Morphine 5mg q4h for pain/agitation/anxiety -Appreciate palliative assistance with above Goals of Care/Palliative -Continued discussions with family/patient regarding plan for goals of care -Palliative consulted, appreciate recommendations (see above) -Discussed that with current oxygen status, returning to [facility] for home hospice may or may not be an option however we will approach this day by day -Will avoid unnecessary tests to align with palliative approach, will stop daily blood work Supraventricular tachycardia afternoon of 09/18 -w/ reported hx of SVT -Patient woke up from nap and HR->140s. Lungs w/ noticeable inspiratory crackles. -Reverted to sinus 80s after 1 dose of IV Lopressor -cxr w/o sig change from prior -Repeat intermittent episodes of tachycardia to 130s HR, unprovoked and asymptomatic -Patient now on 2.5mg IV Lopressor q4h PRN -HR in 70s-80s today Acute kidney injury on chronic kidney disease -Baseline Cr 1.6s-1.7s, uptrending Cr this admission to 2.46. s/p 1 dose IV Lasix in the ED -Temporarily holding home PO Lasix 40mg qm, 20mg pm. -175mL NSS provided. Follow BMP -Nephrology consulted: Epogen 01167 units x 1 dose yesterday, iron study: -Receiving iron today -Due to increased work of breathing yesterday afternoon, received 1x dose of Lasix Moderate pulmonary hypertension and chronic HFpEF -Per 09/2022 echo, new from 07/2021 echo. -EF 60-65%. No RWMA. Moderate concentric LVH. Mild RA/RV dilation. Very small pericardial effusion. -Currently holding home regimen Lasix 40 mg p.o. every morning and 20 mg p.o. every afternoon. Obstructive sleep apnea -Patient is noncompliant with CPAP. In setting of moderate pulm hypertension, would recommend readdressing use of CPAP. Coronary artery disease -Continue ASA 81mg po daily -Continue Atorvastatin 20mg po qHS Hypertension -Continue Diltiazem Hyperlipidemia -Continue Atorvastatin DM type 2 Hold oral agents -Lantus and SSI. Pharmacy glycemic consult placed. F/E/N DM2, low Na. Ppx - SQ heparin Code - DNR/DNI Dispo PCU. When medically ready, would dc to home hospice w/ remainder of abx course via PO. (2) Hypoxia: (3) WENDY (obstructive sleep apnea): (4) Coronary artery disease: (5) Hypertension: (6) Hyperlipidemia: (7) DM type 2 (diabetes mellitus, type 2): Admission and Anticipated Discharge Date Admission Date: September 17, 2022 Supervising Physician Co-Signing Physician Notes I personally examined the patient and verified all roca points of history and exam, discussed case, and agree with decision making with Dr Gunn. breathing feels decent on high flow but when lower he did feel a little dyspnic, when oxygen turned back up dyspnea improved. Vitals noted,pleasant nad fatigued breathing unlabored no accessory muscles good effort skin no rashes no pallor or icterus End-stage COPD, pneumonia, COPD exacerbation, pulmonary edema more from COPD and CKD, but also does have HFpEFsteroids, antibiotics, nebulizers, diureticsbut also given his dyspnea and end-stage COPD as well as his desire for hospice/comfort, morphine/Ativan as needed refractory dyspnea. His dyspnea was better yesterday, on trying to wean oxygen, his dyspnea worsened. Continue current care for now. I hesitate to try to wean oxygen to levels that are feasible for outpatient because of the fact that he is having some dyspnea when we turn things down. Subjective 09/21: Patient seen and examined at bedside. States that the Ativan helped him sleep last night until he was awoken by respiratory/lab,etc. Today he denies any significant changes in his breathing or respiratory status. He denies any chest pain or abdominal pain. Review of Systems Review of Systems: As per above Physical Exam Constitutional: + frail appearing and cooperative Eyes: Anicteric sclerae ENMT: External ears and nose normal Respiratory: No respiratory distress. Scattered rhonchi, no wheeze. Occasional cough Cardiovascular: Rate/Rhythm: regular rate and regular rhythm Skin: no rashes, warm and dry Psychiatric: A+Ox3, euthymic affect Results & Data Results & Data Vital Signs (Past 12 Hours) Vital Signs Temp Pulse Pulse Resp BP Pulse Ox O2 Del Method 09/21/22 07:17 78 18 Nasal Cannula 09/21/22 03:40 36.3 C L 76 18 169/79 H 93 High Flow Nasal Cannula 09/21/22 02:22 79 18 93 Nasal Cannula 09/21/22 01:17 High Flow Nasal Cannula 09/21/22 01:17 73 09/20/22 23:23 36.4 C L 81 18 177/83 H 96 High Flow Nasal Cannula 09/20/22 23:11 79 18 92 Nasal Cannula 09/20/22 20:05 36.4 C L 80 18 178/81 H 91 High Flow Nasal Cannula 09/20/22 19:44 79 20 88 L Nasal Cannula O2 Flow Rate 09/21/22 07:17 15 09/21/22 03:40 15 09/21/22 02:22 15 09/21/22 01:17 15 09/21/22 01:17 09/20/22 23:23 15 09/20/22 23:11 15 09/20/22 20:05 15 09/20/22 19:44 15 Resident Activity Tracking Resident Involvement: Resident Care Provided Care Provided: Adult Hospital Medicine (4) Coronary artery disease Associated angina: without angina Coronary Disease-Associated Artery/Lesion type: [place] artery [place] vs. transplanted heart: [place] heart Qualified Code(s): I25.10 - Atherosclerotic heart disease of [place] coronary artery without angina pectoris (5) Hypertension Hypertension type: essential hypertension Qualified Code(s): I10 - Essential (primary) hypertension (6) Hyperlipidemia Hyperlipidemia type: unspecified Qualified Code(s): E78.5 - Hyperlipidemia, unspecified (7) DM type 2 (diabetes mellitus, type 2) Diabetes mellitus complication status: without complication Diabetes mellitus nursing home insulin use: without nursing home use Qualified Code(s): E11.9 - Type 2 diabetes mellitus without complications
[2022-09-21] MEDS ORDERED: LANTUS PER UNIT CHARGE SQ ONE ×2 (08:00→17:00)
[2022-09-21] MEDS: INSULIN ASPART PER UNIT CHARGE SC SCH ×4 (09:10→21:14)
[2022-09-21] MEDS: dilTIAZem HCL 240 MG CAPCR PO SCH ×2 (09:10→21:06)
[2022-09-21] MEDS: PANTOprazole 40 MG TAB PO SCH (09:11)
[2022-09-21] MEDS: ASPIRIN 81 MG ECTAB PO SCH (09:11)
[2022-09-21] MEDS: HEPARIN SOD 5,000 UNIT/0.5 ML VIAL SQ SCH ×2 (09:11→21:10)
[2022-09-21] MEDS: methylPREDNISolone 40 MG in SYRINGE 0 ML IV SCH ×3 (09:11→21:06)
[2022-09-21] MEDS: AZITHROMYCIN 250 MG TAB PO SCH (09:11)
--- NOTE | 2022-09-21 09:32 | XRay Report ---
XR chest 2V PA/lateral CLINICAL HISTORY: Shortness of breath. Assess pneumonia. COMPARISON STUDY: Chest CT September 17, 2022. Chest radiograph September 18, 2022. FINDINGS: There is no pneumothorax. Small left pleural effusion is noted. There has been mild improve ment in extensive bilateral mid and lower lung airspace opacities consistent with pneumonia. Cardiome diastinal silhouette is stable. There is emphysema. IMPRESSION: 1. Mild improvement in extensive multifocal pneumonia. 2. Small left pleural effusion. ACT 112: Negative or not required by law. Electronically signed by: Seth Sandy M.D. 09/21/2022 9:30 AM
--- NOTE | 2022-09-21 11:34 | Communication Note ---
Date of Service: September 21, 2022 Brief Palliative Med Note Patient does not endorse readiness for comfort care however should this be d esired and he remains on hi [place], here is a hi flow de escalation protocol: Although the role of high flow oxygen via nasal cannula (HFNC) in patients with life-limiting respiratory illnesses is not well-defined, weaning high flow oxygen in a conscious and interactive patient at the end of life presents unique challenges but allows for meaningful life-closure moments. Recommended Protocol: * Provider, RN, and RT discuss plan * engage additional MDT as needed: social work, rail bonder, etc. * Stop monitors, ensure working IV * Pre-wean medications: Begin hydromorphone infusion, prn dose and Lorazepam 1mg IV * Consider Hydromorphone 0.5-1mg per hour infusion * Consider Hydromorphone 1mg IV Q10min prn air hunger * Four Down Titrations: Approximately 25% Reduction every 10 minutes (reduce FiO2 and liter flow) - Medicate - Wait for 10 min for peak effect, decrease liter flow and FiO2 by 25% followed by immediate repeat bolusing - Wait 10 min then decrease liter flow and FiO2 by 25%, followed by immediate repeat bolusing - Give another Lorazepam 1mg IV bolus - Wait another 10 min then decrease liter flow and FiO2 by 25% followed by immediate repeat bolusing - Wait another 10 min then decrease liter flow and FiO2 by the final 25% followed by immediate repeat bolusing - Give another 1mg Lorazepam 1mg IV if needed * Observe for and treat symptoms * Provide anticipatory guidance Thank you for allowing us to participate in the ongoing care of this patient. Please don't hesitate to call or page with any additional concerns. Dr. Nakia Wells DNP Director, Palliative Care
[2022-09-21] MEDS ORDERED: LORazepam 2 MG/1 ML VIAL IV PRN (11:56)
--- NOTE | 2022-09-21 13:32 | Pharmacy Report ---
Pharmacy Glycemic Short Note 2 - Date of Service September 21, 2022 - Glycemic Short BSG Results (Last 24 hours): 09/20/22 09/20/22 09/21/22 16:13 20:08 05:16 Glucose 247 H POC Glucose 279 H 259 H 09/21/22 09/21/22 07:47 11:24 Glucose POC Glucose 266 H 292 H OUTPATIENT ANTIDIABETIC REGIMEN: * Metformin 1 g PO BIDM * Farxiga 10 mg PO daily * Rybelsus 14 mg PO daily * HbA1c: 8% (09/05/22) ASSESSMENT: 09/21/22: * BSGs have been uncontrolled since the initiation of IV SoluMedrol. * Despite aggressive basal/bolus insulin dosing, BSGs have been persistently high. * With patient's renal function (SCr 2.73 today), expect that Lantus has not reached steady-state yet. Once it does, expect that patient's dose may require adjustment. Also expect insulin needs to decrease if/when steroids taper or stop. * Given that pt's family is starting to consider palliative measures, ultimate goal will be to prevent hypoglycemia. Would prefer BSGs stay below 200-250 mg/dL, though. * Will continue to follow and adjust regimen conservatively. 09/19/22: * BSGs improved following consult yesterday * Patient received 54 units of insulin (15 units of basal, 31 units of SC bolus, and 8 units of IV regular insulin) * Fasting BSG of 130 mg/dL this morning * Did not anticipate changes to insulin regimen today, but Solu-medrol 40 mg IV q8h initiated for this afternoon * Will tighten Novolog and increase basal insulin to equal weight-based stress of 3 dosing 09/18/22: * TS is a 77 year old male who presented to ED overnight on 09/16-09/17 with worsening shortness of breath * Pharmacy consulted for glycemic management this morning (09/18) due to persistently elevated BSGs yesterday * Zosyn + azithromycin ordered, no steroids at this time * Will utilize past inpatient glycemic data to guide initial insulin dosing * Lunch BSG of 326 mg/dL - will give one-time IV insulin bolus PLAN FOR INPATIENT GLYCEMIC CONTROL: * Hold outpatient oral diabetes medications * Basal insulin * Lantus 40 units SC daily * Lantus 0-20 units SC PM, based on BSG * Bolus insulin * NovoLog per scale ACHS or Q6hrs while NPO * Goal Range: Low 110 mg/dL - High 140 mg/dL * Correction Factor: 15 mg/dL/unit * Nutritional / Prandial insulin per carb ratio of 1 unit per 6 grams CHO consumed
[2022-09-21] MEDS ORDERED: MoRPHine SULFATE 10 MG/0.5 ML UDP PO PRN (13:46)
--- NOTE | 2022-09-21 14:08 | Nephrology Progress Note ---
Date of Service September 21, 2022 Assessment & Plan (1) Acute kidney injury: (2) Hypoxia: (3) Anemia: (4) COPD exacerbation: (5) Mass of upper lobe of left lung: Plan 77-year-old gentleman with end-stage COPD, recent finding of lung mass, admitted to the hospital with hypoxic respiratory failure and COPD exacerbation. Has stage IIIB CKD, baseline creatinine 1.5-1.6, on admission creatinine peaked to 2.5 with slightly improved to 2.3. Received 1 dose of IV Lasix on admission but has been on hold since. Hypoxic respiratory failure most likely secondary to underlying end-stage COPD, less likely pulmonary edema. renal function slightly improved, electrolyte acceptable. Net negative. hemoglobin low, iron study showed iron deficiency. -- start on amlodipine 5 mg p.o. daily, increase dose as needed -- continue on Venofer 200 mg IV daily for total 5 doses. -- monitor intake and output closely and Okay to use diuretics as needed if significantly positive -- Epogen 03501 units x 1 dose on 09/19/22 will follow Admission and Anticipated Discharge Date Admission Date: September 17, 2022 Subjective Vladislav was seen this morning. Overall he feels well. still requiring high-flow nasal cannula oxygen although he has decent urine output and overall net close to even off to just slightly negative off of Lasix. slight improvement in renal function, electrolyte acceptable. Blood pressure has been variable but mostly high. Review of Systems Review of Systems: Detail ROS was unremarkable. Physical Exam Constitutional: WD/WN, vitals as above no acute distress Eyes: + anicteric sclerae Neck: normal visual inspection Thyroid: no thyromegaly Respiratory: + respiratory distress Auscultation: + diminished lung sounds and + rhonchi Cardiovascular: RRR, no murmur, no edema Musculoskeletal: Extremities: extremities normal to inspection Skin: no rashes, warm and dry Neurologic: no focal motor deficits and not confused Psychiatric: Orientation: alert and oriented x 3 Affect: euthymic affect Results & Data Vital Signs (Past 12 Hours) Vital Signs Temp Pulse Pulse Resp BP Pulse Ox O2 Del Method 09/21/22 12:16 36.8 C 79 20 165/82 H 93 Room Air 09/21/22 10:29 74 18 91 Nasal Cannula 09/21/22 09:19 Nasal Cannula 09/21/22 09:19 71 09/21/22 07:57 36.5 C 75 20 181/80 H 100 High Flow Nasal Cannula 09/21/22 07:17 78 18 Nasal Cannula 09/21/22 03:40 36.3 C L 76 18 169/79 H 93 High Flow Nasal Cannula 09/21/22 02:22 79 18 93 Nasal Cannula O2 Flow Rate 09/21/22 12:16 09/21/22 10:29 15 09/21/22 09:19 15 09/21/22 09:19 09/21/22 07:57 15 09/21/22 07:17 15 09/21/22 03:40 15 09/21/22 02:22 15 PG Care Time/CCT Total # of Minutes Spent Total Time Spent with Patient: Total time spent is greater than 50% in coordination of care (as documented) at patient's floor/unit and/or counseling patient: Coding Level of Care Code 04485 SUB INP/OBS CARE 2/35MIN Diagnoses Acute kidney injury N17.9 Hypoxia R09.02 Anemia D64.9 COPD exacerbation J44.1 Mass of upper lobe of left lung R91.8
--- NOTE | 2022-09-21 14:14 | Palliative Care Progress Note ---
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 He feels his needs are met in the hospital with ATC nursing care, prepared meals, meds in both PO and IV forms (when needed urgently) and unlimited means of higher oxygen support. He tells me the weaning trial led to drop in SpO2 into the 80s, which required return to [facility]. He does not perceive this as an obstacle as he feels he can stay "indefinitely" in the hospital. He does not want hospice in the hospital. He does not feel ready for comfort care. He feels so long as his oxygen levels can "remain normal with the oxygen you guys give me" then he is fine staying here. We explored a bit the meaning of dropping SpO2 when high flow is removed. He views this as a transient issue that is easily corrected by returning him to high flow. He was less able to comprehend the connection between failing SpO2 levels and advanced/terminal lung disease. I gently advised him that seeking "normal" oxygen level numbers is not the best way to approach management of terminal lung disease. We can supplement with escalating forms of oxygen but this goes not in any way translate to the lung disease is getting "better." We talked about how COPD worsens over time and the medications become less effective/do not work as well: therapies to treat symptoms not alleviated by guideline-based medical therapy. Therefore, once traditional medical therapies and nonpharmacologic therapies have been exhausted, low-dose opioids are generally felt to be first-line adjuvant therapy to treat dyspnea. Sometimes, providers may be uncomfortable with utilization of more potent opiates, which is why collaboration with hospice at the senior care will be useful. COPD hospice guidelines I discussed the option of adding hospice to his care: we spoke about how hospice and palliative care provide an extra layer of support for managing the symptoms of COPD. They improve quality of life for patients and their families by addressing social, spiritual and practical issues. I have provided education about the option of hospice for advanced COPD, noting that living with COPD can be difficult brandin as disease progresses/PS declines plus we know it can be equally challenging for caregivers, but you don't have to face the challenges alone. We discussed how hospice and palliative care both offer relief from the pain and symptoms of COPD. Both can address the mental, social and spiritual needs of a patient. In fact, hospice is a type of palliative care during the final stage of life. I went over the criteria hospices use to determine if a COPD patient is advanced enough to qualify for hospice - I have bolded each criteria that patient fulfills: Major characteristics a. Dyspnea at rest and/or with minimal exertion while on oxygen therapy b Dyspnea unresponsive or poorly responsive to bronchodilator therapy c.Progression of chronic pulmonary disease as evidenced by one or more of the following: * Frequent use of medical services, including hospitalizations, ED visits and/or physician outpatient visits, due to symptoms of pulmonary disease * Frequent episodes of bronchitis or pneumonia * Unintentional weight loss of >=10 percent body weight over the preceding six months * Progressive inability to independently perform various activities of daily living (ADLs) or an increasing dependency with ADLs, resulting in a progressively lower performance status Other important critical factors h. Cor pulmonale i.Continuous chronic oxygen therapy j.Resting tachycardia > 100/minute k. Steroid-dependent l.Cyanosis Abnormal laboratory findings: while these laboratory studies may be helpful to the clinician when considering patient appropriateness for hospice services, they are not required for patient admission. a.FEV1 <=30 percent predicted post-bronchodilator b. Serial decreases in FEV1 of at least 40 ml/year over several years c. PO2 <=55 on room air pO2 on 09/14/22 was 37 d. O2 sat. <=88 percent on room air SpO2 with any trial of weaning falls to low 80s e.Persistent hypercarbia (PCO2) >=50 mm HG pCO2 on 09/14/22 was 66 (3) Dyspnea and respiratory abnormalities: Plan: No relief with initial roxanol dose of 2.5mg. Will increase to 5mg.Anticipate he will need a dose of 15-20mg to note some relief. Resting RR is still high 20s at rest. (4) Acute and chronic respiratory failure with hypoxia: (5) Acute exacerbation of chronic obstructive pulmonary disease: (6) Pulmonary hypertension: (7) Severe chronic obstructive pulmonary disease: Plan: COPD is the fourth leading cause of in the world and is associated with a symptom burden comparable to cancer. In addition to maximized medical therapies such as inhalers, nebs, steroids etc., approaches geared at interrupting the dyspnea-anxiety cycle may be useful tools in the arsenal of caring for advanced lung patients: there's a recognition that COPD requires a palliative care model composed of the integration of non- pharmacological and pharmacological interventions, and example of which us The Breathing, Thinking, Functioning model used by the [place] [employer] [facility] (CBIS). This cognitive behavioral model addresses three aspects of the cycle of breathlessness: inefficient breathing, anxiety, and muscle deconditioning, providing targeted cognitive behavioral and self- management techniques for each. n turn this has been shown to reduce anxiety, depression, emergency room visits, and hospitalizations. Examples of such techniques include passive fixation of the shoulder girdle by placing the hands on the hips and having the patient lean forward when sitting to dome the diaphragm and improve inspiratory force generation.(Jose Elias Jarvis. Managing breathlessness: a palliative care approach.Postgrad Med J. 2016;92(5349):393- 400. doi:10.1136/nhyvajltltly-[id number]) Fan therapy can reduce breathlessness at rest as well as providing symptomatic relief during exercise. (8) CKD (chronic kidney disease): (9) Chronic diastolic CHF (congestive heart failure): (10) WENDY (obstructive sleep apnea): Plan * I have increased Roxanol from2.5mg to 5mg PO q4h prn * I have increased Ativan dose from 0.5mg IV to 1mg IV since patient is only achieving 2-3 hr relief * [facility] Sleep Protocol: minimize labs/testing, bundle care * Daily PT and RT for ACT * HFNC provides many patients with terminal illnesses sufficient oxygenation to maintain wakefulness for weeks, though there are no studies evaluating its benefit in reducing the dose of opioids or anxiolytic medications used to treat dyspnea. Like any technology employed at the end-of-life, its use should be considered in the context of the patients care goals: it may prolong the dying process even as it improves dyspnea. Furthermore, the need for an advanced air compression system can create logistic barriers to pr oviding HFNC outside the hospital (HFNC availability can vary outside the hospital. CM can help clinicians identify local resource availability.) Another consideration is that patients may not be agreeable with transitioning off HFNC, leading to dilemmas around care goals and disposition. In this respect, its use should be considered as being more like invasive ventilation (a high-resource intervention that is challenging to offer outside the hospital) than typical nasal cannula oxygen therapy. * HFNC may require weaning if comfort care is elected. The following protocol is suggested: Recommended Protocol: * Provider, RN, and RT discuss plan * engage additional MDT as needed: social work, it compliance manager, etc. * Stop monitors, ensure working IV * Pre-wean medications: Begin hydromorphone infusion, prn dose and Lorazepam 1mg IV * Consider Hydromorphone 0.5-1mg per hour infusion * Consider Hydromorphone 1mg IV Q10min prn air hunger * Four Down Titrations: Approximately 25% Reduction every 10 minutes (reduce FiO2 and liter flow) - Medicate - Wait for 10 min for peak effect, decrease liter flow and FiO2 by 25% followed by immediate repeat bolusing - Wait 10 min then decrease liter flow and FiO2 by 25%, followed by immediate repeat bolusing - Give another Lorazepam 1mg IV bolus - Wait another 10 min then decrease liter flow and FiO2 by 25% followed by immediate repeat bolusing - Wait another 10 min then decrease liter flow and FiO2 by the final 25% followed by immediate repeat bolusing - Give another 1mg Lorazepam 1mg IV if needed * Observe for and treat symptoms * Provide anticipatory guidance Thank you for allowing us to participate in the ongoing care of this patient. Please don't hesitate to call or page with any additional concerns. Dr. Nakia Wells DNP Director, Palliative Care Admission and Anticipated Discharge Date Admission Date: September 17, 2022 Subjective Tried a dose of roxanola 2.5mg, did not feel any relief. tried a few doses of ativan 0.5mg, feels it helps but lasts only 2-3 hrs notes significant disruption to rest with hospital routines ie vitals, labs etc. remains on high flow, unable to toelrate weaning: SpO2 fell into the 80s per pt report appetite remains excellent denies n/v/d/c no reflux no issues swallowing tolerating meds without issue Review of Systems Review of Systems: All systems reviewed & are unremarkable except as noted in Subjective Physical Exam Physical Exam: Sitting up at edge of bed +dyspneic with +use of accessory muscles and +conversational dyspnea diminished lung lozoya no gross JVD some belly breathing skin pale but warm, no cyanosis + BLE edema AAOx3 Results & Data Vital Signs (Past 12 Hours) Vital Signs Temp Pulse Pulse Resp BP Pulse Ox O2 Del Method 09/21/22 12:16 36.8 C 79 20 165/82 H 93 Room Air 09/21/22 10:29 74 18 91 Nasal Cannula 09/21/22 09:19 Nasal Cannula 09/21/22 09:19 71 09/21/22 07:57 36.5 C 75 20 181/80 H 100 High Flow Nasal Cannula 09/21/22 07:17 78 18 Nasal Cannula 09/21/22 03:40 36.3 C L 76 18 169/79 H 93 High Flow Nasal Cannula 09/21/22 02:22 79 18 93 Nasal Cannula O2 Flow Rate 09/21/22 12:16 09/21/22 10:29 15 09/21/22 09:19 15 09/21/22 09:19 09/21/22 07:57 15 09/21/22 07:17 15 09/21/22 03:40 15 09/21/22 02:22 15 Laboratory Results reviewed Diagnostic Findings reviewed PG Care Time/CCT Total # of Minutes Spent Total Time Spent: 55 Total Time Spent with Patient: Total time spent is greater than 50% in coordination of care (as documented) at patient's floor/unit and/or counseling patient: C[place] [address] SUB INP/OBS CARE 3/50MIN Patient Type Established History Comprehensive Exam Expanded Problem Focused Medical Decision Making High Complexity Diagnoses Palliative care by specialist Z51.5 Advanced care planning/counseling discussion Z71.89 Dyspnea and respiratory abnormalities R06.00; R06.89 Acute and chronic respiratory failure with hypoxia J96.21 Acute exacerbation of chronic obstructive pulmonary disease J44.1 Pulmonary hypertension I27.20 Severe chronic obstructive pulmonary disease J44.9 CKD (chronic kidney disease) N18.9 Chronic diastolic CHF (congestive heart failure) I50.32 WENDY (obstructive sleep apnea) G47.33
[2022-09-21] MEDS: amLODIPine BESYLATE 5 MG TAB PO SCH (14:35)
--- NOTE | 2022-09-21 18:13 | Billing Data ---
Date of Service September 21, 2022 Coding Level of Care Code 92943 SUB INP/OBS CARE MIN
[2022-09-21] MEDS: ATORVASTATIN 20 MG TAB PO SCH (21:06)
[2022-09-21] MEDS: LORazepam 2 MG/1 ML VIAL IV PRN (23:37)
[2022-09-22] MEDS: PIPERACILLIN/TAZOBACTAM 4.5 GM in DEXTROSE 5% 100 ML IV SCH ×3 (02:31→18:27)
[2022-09-22] MEDS: ALBUT/IPRATROP 3MG/0.5MG NEB 3 ML VIAL NEB SCH ×8 (03:12→23:06)
[2022-09-22] MEDS: FORMOTEROL 20 MCG/2 ML VIAL INH SCH ×2 (07:08→19:11)
[2022-09-22] MEDS: BUDESONIDE 0.5 MG/2 ML VIAL (PULMICORT) INH SCH ×2 (07:09→19:11)
--- NOTE | 2022-09-22 07:18 | Hospitalist Progress Note ---
Date of Service September 22, 2022 Assessment & Plan (1) Dyspnea: Plan: 77yo male with chronic respiratory failure with hypoxia, end stage COPD on 4L home oxygen, recently discovered VERN spiculated mass measuring 5.4cm concerning for bronchogenic carcinoma, WENDY, CAD, DM, HTN, HLP and CKD-III presenting from [facility] w/ increased O2 requirement and dyspnea. Acute on chronic hypoxic respiratory failure -In setting of probable aspiration pneumonia and end stage COPD -CTA of the chest without PE, multifocal airspace disease suggestive of PNA vs aspiration -Requiring 15L O2 at admission -Continue neb treatments - Arformoterol and Budesonide - DuoNeb q 4 hours and Albuterol -Hypertonic saline Nebs BID PRN suspected mucus plugging/chest congestion -Flutter valve -Azithromycin 250mg po daily (changed from home every other day prophylaxis dosing) -Zosyn, continuing, blood cultures with no growth at 48hrs. Tentatively, could transition to PO abx. -Methylpred 40 TID * [id number] q2h PRN, Morphine 5mg q4h for pain/agitation/anxiety -Appreciate palliative assistance with above Goals of Care/Palliative -Continued discussions with family/patient regarding plan for goals of care -Palliative consulted, appreciate recommendations (see above) -Discussed that with current oxygen status, returning to [facility] for home hospice may or may not be an option however we will approach this day by day -Will avoid unnecessary tests to align with palliative approach, will stop daily blood work * After discussion with patient's daughter and son, will also touch base with PT/OT regarding goals Supraventricular tachycardia afternoon of 09/18 -w/ reported hx of SVT -Patient woke up from nap and HR->140s. Lungs w/ noticeable inspiratory crackles. -Reverted to sinus 80s after 1 dose of IV Lopressor -cxr w/o sig change from prior -Repeat intermittent episodes of tachycardia to 130s HR, unprovoked and asymptomatic -Patient now on 2.5mg IV Lopressor q4h PRN -HR in 70s-80s today Acute kidney injury on chronic kidney disease -Baseline Cr 1.6s-1.7s, uptrending Cr this admission to 2.46. s/p 1 dose IV Lasix in the ED -Home PO Lasix 40mg qm, 20mg pm. -Nephrology consulted: s/p iron infusion, per nephro will restart Lasix 20 IV Moderate pulmonary hypertension and chronic HFpEF -Per 09/2022 echo, new from 07/2021 echo. -EF 60-65%. No RWMA. Moderate concentric LVH. Mild RA/RV dilation. Very small pericardial effusion. -Currently holding home regimen Lasix 40 mg p.o. every morning and 20 mg p.o. every afternoon. Obstructive sleep apnea -Patient is noncompliant with CPAP. Coronary artery disease -Continue ASA 81mg po daily -Continue Atorvastatin 20mg po qHS Hypertension -Continue Diltiazem Hyperlipidemia -Continue Atorvastatin DM type 2 Hold oral agents -Lantus and SSI. Pharmacy glycemic consult placed. F/E/N DM2, low Na. Ppx - SQ heparin Code - DNR/DNI Dispo PCU. When medically ready, would dc to home hospice w/ remainder of abx course via PO. (2) Hypoxia: (3) WENDY (obstructive sleep apnea): (4) Coronary artery disease: (5) Hypertension: (6) Hyperlipidemia: (7) DM type 2 (diabetes mellitus, type 2): Admission and Anticipated Discharge Date Admission Date: September 17, 2022 Supervising Physician Co-Signing Physician Notes I personally examined the patient and verified all roca points of history and exam, discussed case, and agree with decision making with Dr Gunn. Breathing feels respectable, actually down to 8 L. No new shortness of breath. Vitals noted,pleasant nad fatigued breathing unlabored no accessory muscles good effort skin no rashes no pallor or icterus End-stage COPD, pneumonia, COPD exacerbation, pulmonary edema more from COPD and CKD, but also does have HFpEFsteroids, antibiotics, nebulizers, diureticsbut also given his dyspnea and end-stage COPD as well as his desire for hospice/comfort, morphine/Ativan as needed refractory dyspnea. His dyspnea was better yesterday, and weaning O2 going better. Continue current care for now. Discussed that since respiratory failure often comes with pretty significant symptoms and a pretty high comfort need, I would definitely want to see a good track record of stability before looking to return to SNF, but his improvements from yesterday to today are encouraging that we may in fact be able to return to SNF on hospice at some point. Subjective 09/22: Patient seen and examined at bedside. There were electrical issues in his room (which maintenance is now working on) so Mr. Louie was moved to an open bed in room 112. Patient was not moved there due to change is condition. No acute events overnight. He is currently on 10L NC, notes increased shortness of breath with movement/activity but is comfortable at rest. Review of Systems Review of Systems: As per above Physical Exam Constitutional: + frail appearing and cooperative ENMT: External ears and nose normal. Moist mucous membranes. Respiratory: Scattered rhonchi. No increased work of breathing. Cardiovascular: Rate/Rhythm: regular rate and regular rhythm +1 lower extremity edema bilaterally Gastrointestinal (Abdomen): Abdomen soft, nontender. Skin: no rashes, warm and dry Psychiatric: A+Ox3, euthymic affect Results & Data Results & Data Vital Signs (Past 12 Hours) Vital Signs Temp Pulse Pulse Resp BP Pulse Ox O2 Del Method 09/22/22 07:08 72 20 89 L Nasal Cannula 09/22/22 04:27 36.3 C L 71 18 165/76 H 92 High Flow Nasal Cannula 09/22/22 00:00 81 09/22/22 03:16 69 18 92 Nasal Cannula 09/21/22 21:00 Nasal Cannula 09/22/22 00:05 36.3 C L 76 20 167/79 H 92 High Flow Nasal Cannula 09/21/22 23:08 79 20 92 Nasal Cannula 09/21/22 20:03 36.3 C L 77 20 166/76 H 94 High Flow Nasal Cannula 09/21/22 19:23 73 18 93 Nasal Cannula O2 Flow Rate 09/22/22 07:08 10 09/22/22 04:27 10 09/22/22 00:00 09/22/22 03:16 10 09/21/22 21:00 15 09/22/22 00:05 15 09/21/22 23:08 12 09/21/22 20:03 15 09/21/22 19:23 12 Resident Activity Tracking Resident Involvement: Resident Care Provided Care Provided: Adult Hospital Medicine (4) Coronary artery disease Associated angina: without angina Coronary Disease-Associated Artery/Lesion type: [place] artery [place] vs. transplanted heart: [place] heart Qualified Code(s): I25.10 - Atherosclerotic heart disease of [place] coronary artery without angina pectoris (5) Hypertension Hypertension type: essential hypertension Qualified Code(s): I10 - Essential (primary) hypertension (6) Hyperlipidemia Hyperlipidemia type: unspecified Qualified Code(s): E78.5 - Hyperlipidemia, unspecified (7) DM type 2 (diabetes mellitus, type 2) Diabetes mellitus complication status: without complication Diabetes mellitus buttermaker insulin use: without assisted use Qualified Code(s): E11.9 - Type 2 diabetes mellitus without complications
[2022-09-22] MEDS ORDERED: LANTUS PER UNIT CHARGE SQ ONE ×2 (08:15→17:00)
[2022-09-22] MEDS: dilTIAZem HCL 240 MG CAPCR PO SCH ×2 (08:40→21:01)
[2022-09-22] MEDS: PANTOprazole 40 MG TAB PO SCH (08:40)
[2022-09-22] MEDS: AZITHROMYCIN 250 MG TAB PO SCH (08:40)
[2022-09-22] MEDS: methylPREDNISolone 40 MG in SYRINGE 0 ML IV SCH ×3 (08:41→21:02)
[2022-09-22] MEDS: amLODIPine BESYLATE 5 MG TAB PO SCH (08:41)
[2022-09-22] MEDS: INSULIN ASPART PER UNIT CHARGE SC SCH ×4 (08:45→21:00)
[2022-09-22] MEDS: HEPARIN SOD 5,000 UNIT/0.5 ML VIAL SQ SCH ×2 (08:46→21:02)
[2022-09-22 09:16] LABS: Albumin Level 3.2 gm/dl (3.4-5.0); BUN Creatinine Ratio 29.7 (10-20); Calcium 8.9 mg/dl (8.6-10.3); Creatinine Clr Calc Pharmacy 27.5 ml/min; Est GFR (African American) 30.7 ml/min; Est GFR (Non-African American) 26.5 ml/min; Phosphorus 4.7 mg/dl (2.5-4.9); Potassium 3.5 mmol/L (3.5-5.1)
--- NOTE | 2022-09-22 10:41 | Nephrology Progress Note ---
Date of Service September 22, 2022 Assessment & Plan (1) Acute kidney injury: (2) Hypoxia: (3) Anemia: (4) COPD exacerbation: (5) Mass of upper lobe of left lung: Plan 77-year-old gentleman with end-stage COPD, recent finding of lung mass, admitted to the hospital with hypoxic respiratory failure and COPD exacerbation. Has stage IIIB CKD, baseline creatinine 1.5-1.6, on admission creatinine peaked to 2.5 with slightly improved to 2.3. Received 1 dose of IV Lasix on admission but has been on hold since. Hypoxic respiratory failure most likely secondary to underlying end-stage COPD, less likely pulmonary edema. Renal function slightly improved, electrolyte acceptable. Net even. hemoglobin low, iron study showed iron deficiency. -- start on lasix 20 mg/d, one dose now, amlodipine 5 mg p.o. daily, increase dose as needed -- continue on Venofer 200 mg IV daily for total 5 doses. -- monitor intake and output closely and Okay to use diuretics as needed if significantly positive -- Epogen 87801 units x 1 dose on 09/19/22 will follow Admission and Anticipated Discharge Date Admission Date: September 17, 2022 Subjective Vladislav was seen this morning. Overall he feels well, still requiring high-flow nasal cannula oxygen although he has decent urine output and overall net even today and weight is up. Slight improvement in renal function, electrolyte acceptable. Blood pressure has been variable but mostly high. Review of Systems Review of Systems: Detail ROS was unremarkable. Physical Exam Constitutional: WD/WN, vitals as above no acute distress Eyes: + anicteric sclerae Neck: normal visual inspection Thyroid: no thyromegaly Respiratory: + respiratory distress Auscultation: + diminished lung sounds and + rhonchi Cardiovascular: RRR, no murmur, no edema Musculoskeletal: Extremities: extremities normal to inspection Skin: no rashes, warm and dry Neurologic: no focal motor deficits and not confused Psychiatric: Orientation: alert and oriented x 3 Affect: euthymic affect Results & Data Vital Signs (Past 12 Hours) Vital Signs Temp Pulse Pulse Resp BP BP Pulse Ox 09/22/22 08:15 36.2 C L 83 16 162/72 H 90 09/22/22 07:08 72 20 89 L 09/22/22 04:27 36.3 C L 71 18 165/76 H 92 09/22/22 00:00 81 09/22/22 03:16 69 18 92 09/22/22 00:05 36.3 C L 76 20 167/79 H 92 09/21/22 23:08 79 20 92 O2 Del Method O2 Flow Rate 09/22/22 08:15 High Flow Nasal Cannula 10 09/22/22 07:08 Nasal Cannula 10 09/22/22 04:27 High Flow Nasal Cannula 10 09/22/22 00:00 09/22/22 03:16 Nasal Cannula 10 09/22/22 00:05 High Flow Nasal Cannula 15 09/21/22 23:08 Nasal Cannula 12 PG Care Time/CCT Total # of Minutes Spent Total Time Spent with Patient: Total time spent is greater than 50% in coordination of care (as documented) at patient's floor/unit and/or counseling patient: Coding Level of Care Code 04251 SUB INP/OBS CARE 2/35MIN Diagnoses Acute kidney injury N17.9 Hypoxia R09.02 Anemia D64.9 COPD exacerbation J44.1 Mass of upper lobe of left lung R91.8
[2022-09-22] MEDS: FUROSEMIDE 20 MG TAB PO SCH (11:59)
--- NOTE | 2022-09-22 13:20 | Pharmacy Report ---
Pharmacy Glycemic Short Note 2 - Date of Service September 22, 2022 - Glycemic Short BSG Results (Last 24 hours): 09/21/22 09/21/22 09/22/22 16:26 20:05 08:01 Glucose POC Glucose 195 H 193 H 271 H 09/22/22 09/22/22 09/22/22 08:38 11:14 11:15 Glucose 262 H POC Glucose 353 H* 397 H* 09/22/22 09/22/22 09/22/22 11:18 13:05 13:06 Glucose POC Glucose 379 H* 355 H* 353 H* OUTPATIENT ANTIDIABETIC REGIMEN: * Metformin 1 g PO BIDM * Farxiga 10 mg PO daily * Rybelsus 14 mg PO daily * HbA1c: 8% (09/05/22) ASSESSMENT: 09/22/22: * No plan at this time to wean/discontinue IV Solu-medrol * BSGs remain elevated (undoubtedly from q8h Solu-medrol) - will plan to increase basal and tighten bolus insulin parameters further today * Plan appears to be to discharge to home with hospice (will allow for leniency in BSG control with a goal of limiting hypoglycemia) 09/21/22: * BSGs have been uncontrolled since the initiation of IV SoluMedrol. * Despite aggressive basal/bolus insulin dosing, BSGs have been persistently high. * With patient's renal function (SCr 2.73 today), expect that Lantus has not reached steady-state yet. Once it does, expect that patient's dose may require adjustment. Also expect insulin needs to decrease if/when steroids taper or stop. * Given that pt's family is starting to consider palliative measures, ultimate goal will be to prevent hypoglycemia. Would prefer BSGs stay below 200-250 mg/dL, though. * Will continue to follow and adjust regimen conservatively. 09/19/22: * BSGs improved following consult yesterday * Patient received 54 units of insulin (15 units of basal, 31 units of SC bolus, and 8 units of IV regular insulin) * Fasting BSG of 130 mg/dL this morning * Did not anticipate changes to insulin regimen today, but Solu-medrol 40 mg IV q8h initiated for this afternoon * Will tighten Novolog and increase basal insulin to equal weight-based stress of 3 dosing 09/18/22: * TS is a 77 year old male who presented to ED overnight on 09/16-09/17 with worsening shortness of breath * Pharmacy consulted for glycemic management this morning (09/18) due to persistently elevated BSGs yesterday * Zosyn + azithromycin ordered, no steroids at this time * Will utilize past inpatient glycemic data to guide initial insulin dosing * Lunch BSG of 326 mg/dL - will give one-time IV insulin bolus PLAN FOR INPATIENT GLYCEMIC CONTROL: * Hold outpatient oral diabetes medications * Basal insulin * Lantus 40 units SC daily * Lantus 20-30 units SC PM, based on BSG * Bolus insulin * NovoLog per scale ACHS or Q6hrs while NPO * Goal Range: Low 110 mg/dL - High 140 mg/dL * Correction Factor: 15 mg/dL/unit * Nutritional / Prandial insulin per carb ratio of 1 unit per 4 grams CHO consumed
--- NOTE | 2022-09-22 16:44 | Billing Data ---
Date of Service September 22, 2022 Coding Level of Care Code 37511 SUB INP/OBS CARE MIN
[2022-09-22] MEDS: LORazepam 2 MG/1 ML VIAL IV PRN (23:24)
[2022-09-23] MEDS: PIPERACILLIN/TAZOBACTAM 4.5 GM in DEXTROSE 5% 100 ML IV SCH ×2 (02:23→09:47)
[2022-09-23] MEDS: ALBUT/IPRATROP 3MG/0.5MG NEB 3 ML VIAL NEB SCH ×6 (02:37→22:36)
[2022-09-23] MEDS: LORazepam 2 MG/1 ML VIAL IV PRN ×2 (02:58→23:41)
[2022-09-23] MEDS: BUDESONIDE 0.5 MG/2 ML VIAL (PULMICORT) INH SCH ×2 (06:48→19:27)
[2022-09-23] MEDS: FORMOTEROL 20 MCG/2 ML VIAL INH SCH ×2 (06:48→19:27)
--- NOTE | 2022-09-23 07:09 | Hospitalist Progress Note ---
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 Acute on chronic hypoxic respiratory failure -In setting of probable aspiration pneumonia and end-stage COPD -CTA of the chest without PE, multifocal airspace disease suggestive of PNA vs aspiration -Requiring 15L O2 at admission -Continue neb treatments - Arformoterol and Budesonide - DuoNeb q 4 hours and Albuterol -Hypertonic saline Nebs BID PRN suspected mucus plugging/chest congestion -Flutter valve -Azithromycin 250mg po daily (changed from home every other day prophylaxis dosing) -Received Zosyn x7 days for multifocal pneumonia- symptoms improved. Will discontinue Zosyn as patient has received adequate coverage. -Methylpred will be converted from 40mg TID to BID. Anticipate switch to PO Prednisone 60 on Monday. * Ativan 1mg q2h PRN, Morphine 5mg q4h for pain/agitation/anxiety * Patient has primarily utilized the Ativan, particularly when restless at night -Appreciate palliative assistance with above Goals of Care/Palliative -Continued discussions with family/patient regarding plan for goals of care -Palliative consulted, appreciate recommendations (see above) -Discussed that with current oxygen status, returning to [facility] for home hospice may or may not be an option however we will approach this day by day -Will avoid unnecessary tests to align with palliative approach, will stop daily blood work Supraventricular tachycardia afternoon of 09/18 -w/ reported hx of SVT -Patient woke up from nap and HR->140s. Lungs w/ noticeable inspiratory crackles. -Reverted to sinus 80s after 1 dose of IV Lopressor -cxr w/o sig change from prior -Repeat intermittent episodes of tachycardia to 130s HR, unprovoked and asymptomatic -Patient now on 2.5mg IV Lopressor q4h PRN -HR in 70s-80s. On telemetry has some ectopy, PVCs although asymptomatic. -Will downgrade from tele to med surg status Acute kidney injury on chronic kidney disease -Baseline Cr 1.6s-1.7s, uptrending Cr this admission to 2.46. s/p 1 dose IV Lasix in the ED -Potassium of 3.5 yesterday and restarted Lasix- will give KCl supplement Moderate pulmonary hypertension and chronic HFpEF -Per 09/2022 echo, new from 07/2021 echo. -EF 60-65%. No RWMA. Moderate concentric LVH. Mild RA/RV dilation. Very small pericardial effusion. -Currently holding home regimen Lasix 40 mg p.o. every morning and 20 mg p.o. every afternoon. Obstructive sleep apnea -Patient is noncompliant with CPAP. Coronary artery disease -Continue ASA 81mg po daily -Continue Atorvastatin 20mg po qHS Hypertension -Continue Diltiazem Hyperlipidemia -Continue Atorvastatin DM type 2 Hold oral agents -Lantus and SSI. Pharmacy glycemic consult placed. F/E/N DM2, low Na. Ppx - SQ heparin Code - DNR/DNI Dispo Med surg (2) Hypoxia: (3) WENDY (obstructive sleep apnea): (4) Coronary artery disease: (5) Hypertension: (6) Hyperlipidemia: (7) DM type 2 (diabetes mellitus, type 2): Admission and Anticipated Discharge Date Admission Date: September 17, 2022 Supervising Physician Co-Signing Physician Notes I personally examined the patient and verified all roca points of history and exam, discussed case, and agree with decision making with Dr Gunn. feels about the same, no new complaints. Vitals noted,pleasant nad fatigued breathing unlabored no accessory muscles good effort skin no rashes no pallor or icterus End-stage COPD, pneumonia, COPD exacerbation, pulmonary edema more from COPD and CKD, but also does have HFpEFsteroids, antibiotics, nebulizers, diureticsbut also given his dyspnea and end-stage COPD as well as his desire for hospice/comfort, morphine/Ativan as needed refractory dyspnea. overall stable - can stop abx as pneumonia treated; start to wean steroids. if conitnues to show stability for several more days (given his dyspnea and significant O2 requirement just to alleviate dyspnea not long ago) may be able to get back to SNF/hospice - continue to follow closely for now otherwise as above Subjective 09/23: Patient seen and examined at bedside. No acute events overnight. Has been at 8L NC overnight, shortness of breath noted with movement but has been comfortable at rest. Denies chest pain, body aches, chills. Review of Systems Review of Systems: As per above Physical Exam Constitutional: + frail appearing and cooperative Eyes: Anicteric sclerae ENMT: External ears and nose normal. Moist mucous membranes. Cardiovascular: Rate/Rhythm: regular rate and regular rhythm Skin: no rashes, warm and dry Psychiatric: A+Ox3, euthymic affect Results & Data Results & Data Vital Signs (Past 12 Hours) Vital Signs Temp Pulse Pulse Pulse Resp BP Pulse Ox 09/23/22 03:17 36.4 C L 77 19 147/70 H 98 09/23/22 02:34 18 95 09/23/22 00:00 75 09/22/22 20:00 09/22/22 23:07 36.5 C 79 19 157/75 H 97 09/22/22 23:06 80 18 94 09/22/22 19:20 36.7 C 80 18 150/76 H 99 09/22/22 19:12 77 77 16 94 O2 Del Method O2 Flow Rate 09/23/22 03:17 Nasal Cannula 8 09/23/22 02:34 Nasal Cannula 8 09/23/22 00:00 09/22/22 20:00 Nasal Cannula 8 09/22/22 23:07 High Flow Nasal Cannula 8 09/22/22 23:06 Nasal Cannula 8 09/22/22 19:20 Nasal Cannula 8 09/22/22 19:12 Nasal Cannula 8 Resident Activity Tracking Resident Involvement: Resident Care Provided Care Provided: Adult Hospital Medicine (4) Coronary artery disease Associated angina: without angina Coronary Disease-Associated Artery/Lesion type: [place] artery [place] vs. transplanted heart: [place] heart Qualified Code(s): I25.10 - Atherosclerotic heart disease of [place] coronary artery without angina pectoris (5) Hypertension Hypertension type: essential hypertension Qualified Code(s): I10 - Essential (primary) hypertension (6) Hyperlipidemia Hyperlipidemia type: unspecified Qualified Code(s): E78.5 - Hyperlipidemia, unspecified (7) DM type 2 (diabetes mellitus, type 2) Diabetes mellitus complication status: without complication Diabetes mellitus fci insulin use: without fci use Qualified Code(s): E11.9 - Type 2 diabetes mellitus without complications
[2022-09-23] MEDS: INSULIN ASPART PER UNIT CHARGE SC SCH ×4 (07:41→21:18)
[2022-09-23] MEDS: dilTIAZem HCL 240 MG CAPCR PO SCH ×2 (08:23→22:07)
[2022-09-23] MEDS: methylPREDNISolone 40 MG in SYRINGE 0 ML IV SCH ×2 (08:23→22:06)
[2022-09-23] MEDS: HEPARIN SOD 5,000 UNIT/0.5 ML VIAL SQ SCH ×2 (08:24→22:07)
[2022-09-23] MEDS: ASPIRIN 81 MG ECTAB PO SCH (08:24)
[2022-09-23] MEDS: AZITHROMYCIN 250 MG TAB PO SCH (08:24)
[2022-09-23] MEDS: PANTOprazole 40 MG TAB PO SCH (08:24)
[2022-09-23] MEDS: amLODIPine BESYLATE 5 MG TAB PO SCH (08:25)
[2022-09-23] MEDS: FUROSEMIDE 20 MG TAB PO SCH ×2 (08:25→08:50)
[2022-09-23] MEDS ORDERED: LANTUS PER UNIT CHARGE SC ONE ×2 (08:30→21:00)
--- NOTE | 2022-09-23 12:00 | Pharmacy Report ---
Pharmacy Glycemic Short Note 2 - Date of Service September 23, 2022 - Glycemic Short BSG Results (Last 24 hours): 09/22/22 09/22/22 09/22/22 13:05 13:06 16:01 POC Glucose 355 H* 353 H* 194 H 09/22/22 09/23/22 09/23/22 20:17 07:31 11:33 POC Glucose 248 H 293 H 330 H* OUTPATIENT ANTIDIABETIC REGIMEN: * Metformin 1 g PO BIDM * Farxiga 10 mg PO daily * Rybelsus 14 mg PO daily * HbA1c: 8% (09/05/22) ASSESSMENT: 09/23/22: * Patient seems to be exquisitely steroid sensitive. Currently receiving almost double the amount of Novolog as anticipated by a weight-based severe stress estimate. Determination of steroid plan ongoing will be essential to insulin dose adjustments. * Discussed with Dr. Gunn - tapering from 40 mg IV TID to BID starting today. Anticipate duration of a few days at this dose. Then further reduction to prednisone 60 mg PO anticipated, possibly on Monday * AM labs have stopped - goal is comfort at this point with hopeful plan to discharge home on hospice. SCr remained elevated yesterday - Lantus may or may not be at steady state yet * Would like to avoid low's as primary goal for comfort goals, but BSG's are still significantly elevated and further adjustments are warranted. Goal BSG's likely ~140-220 mg/dL at this time. Most remain above this range. * Increased Lantus this AM, although not aggressively as steroids mainly affect prandial coverage and may not yet be at steady state given renal dysfunction. However, with steroid taper starting today, will decrease PM dose of Lantus * Tightened Novolog with breakfast and lunch today given recent hyperglycemia. Will loosen slightly at dinner given steroid taper. Plan to loosen further tomorrow AM to help avoid hypoglycemia. * Will also add an overnight check tonight for the dual purpose of screening for hypoglycemia given steroid taper with more aggressive Lantus dose and also for ongoing hyperglycemia. Looser Novolog parameters ordered. 09/22/22: * No plan at this time to wean/discontinue IV Solu-medrol * BSGs remain elevated (undoubtedly from q8h Solu-medrol) - will plan to increase basal and tighten bolus insulin parameters further today * Plan appears to be to discharge to home with hospice (will allow for leniency in BSG control with a goal of limiting hypoglycemia) 09/21/22: * BSGs have been uncontrolled since the initiation of IV SoluMedrol. * Despite aggressive basal/bolus insulin dosing, BSGs have been persistently high. * With patient's renal function (SCr 2.73 today), expect that Lantus has not reached steady-state yet. Once it does, expect that patient's dose may require adjustment. Also expect insulin needs to decrease if/when steroids taper or stop. * Given that pt's family is starting to consider palliative measures, ultimate goal will be to prevent hypoglycemia. Would prefer BSGs stay below 200-250 mg/dL, though. * Will continue to follow and adjust regimen conservatively. 09/19/22: * BSGs improved following consult yesterday * Patient received 54 units of insulin (15 units of basal, 31 units of SC bolus, and 8 units of IV regular insulin) * Fasting BSG of 130 mg/dL this morning * Did not anticipate changes to insulin regimen today, but Solu-medrol 40 mg IV q8h initiated for this afternoon * Will tighten Novolog and increase basal insulin to equal weight-based stress of 3 dosing 09/18/22: * TS is a 77 year old male who presented to ED overnight on 09/16-09/17 with worsening shortness of breath * Pharmacy consulted for glycemic management this morning (09/18) due to persistently elevated BSGs yesterday * Zosyn + azithromycin ordered, no steroids at this time * Will utilize past inpatient glycemic data to guide initial insulin dosing * Lunch BSG of 326 mg/dL - will give one-time IV insulin bolus PLAN FOR INPATIENT GLYCEMIC CONTROL: * Hold outpatient oral diabetes medications * Basal insulin * Lantus 45 units SC x1 this AM * Lantus 0-10 units SC PM, based on BSG * Bolus insulin * NovoLog per scale ACHS or Q6hrs while NPO * Goal Range: Low 110 mg/dL - High 140 mg/dL * Correction Factor: 12 mg/dL/unit with breakfast/lunch today. Loosening to 15 mg/dL/unit ACHS ongoing starting at dinner. One-time check of 20 mg /dL/unit overnight. * Carb ratio: 3.5 g CHO/unit with breakfast and lunch today. Loosening to 4 mg/dL/unit with dinner and HS today. Loosening further to 5 mg/dL/unit ACHS starting tomorrow AM. One-time check of 6 g CHO/unit overnight.
--- NOTE | 2022-09-23 13:50 | Billing Data ---
Date of Service September 23, 2022 Coding Level of Care Code 18301 SUB INP/OBS CARE MIN
[2022-09-23] MEDS ORDERED: methylPREDNISolone 40 MG in SYRINGE 0 ML IV SCH (21:00)
[2022-09-24] MEDS ORDERED: INSULIN ASPART PER UNIT CHARGE SC ONE (02:00)
[2022-09-24] MEDS: ALBUT/IPRATROP 3MG/0.5MG NEB 3 ML VIAL NEB SCH ×5 (03:27→19:32)
[2022-09-24] MEDS: LORazepam 2 MG/1 ML VIAL IV PRN (03:41)
--- NOTE | 2022-09-24 06:56 | Hospitalist Progress Note ---
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 Acute on chronic hypoxic respiratory failure -In setting of probable aspiration pneumonia and end-stage COPD -CTA of the chest without PE, multifocal airspace disease suggestive of PNA vs aspiration -Requiring 15L O2 at admission -Continue neb treatments - Arformoterol and Budesonide - DuoNeb q 4 hours and Albuterol -Hypertonic saline Nebs BID PRN suspected mucus plugging/chest congestion -Flutter valve -Azithromycin 250mg po daily (changed from home every other day prophylaxis dosing) -Received Zosyn x7 days for multifocal pneumonia- symptoms improved. Will discontinue Zosyn as patient has received adequate coverage. -Methylpred will be converted from 40mg TID to BID. Anticipate switch to PO Prednisone 60 on Monday. * Ativan 1mg q2h PRN, Morphine 5mg q4h for pain/agitation/anxiety * Patient has primarily utilized the Ativan, particularly when restless at night -Appreciate palliative assistance with above Goals of Care/Palliative -Continued discussions with family/patient regarding plan for goals of care -Palliative consulted, appreciate recommendations (see above) -Discussed that with current oxygen status, returning to [facility] for home hospice may or may not be an option however we will approach this day by day -Will avoid unnecessary tests to align with palliative approach, will stop daily blood work Supraventricular tachycardia afternoon of 09/18 -w/ reported hx of SVT. Patient woke up from nap and HR->140s. Lungs w/ noticeable inspiratory crackles. -Reverted to sinus 80s after 1 dose of IV Lopressor -cxr w/o sig change from prior -Repeat intermittent episodes of tachycardia to 130s HR, unprovoked and asymptomatic -Patient now on 2.5mg IV Lopressor q4h PRN -HR in 70s-80s. On telemetry has some ectopy, PVCs although asymptomatic. -Will downgrade from tele to med surg status Acute kidney injury on chronic kidney disease -Baseline Cr 1.6s-1.7s, uptrending Cr this admission to 2.46. s/p 1 dose IV Lasix in the ED -Potassium of 3.5 yesterday and restarted Lasix- will give KCl supplement Moderate pulmonary hypertension and chronic HFpEF -Per 09/2022 echo, new from 07/2021 echo. -EF 60-65%. No RWMA. Moderate concentric LVH. Mild RA/RV dilation. Very small pericardial effusion. -Did intermittently hold home Lasix dosing (40 mg AM 20 mg PM). On 20 mg QAM at presnt Obstructive sleep apnea -Patient is noncompliant with CPAP. Coronary artery disease -Continue ASA 81mg po daily -Continue Atorvastatin 20mg po qHS Hypertension -Continue Diltiazem Hyperlipidemia -Continue Atorvastatin DM type 2 Hold oral agents -Lantus and SSI. Pharmacy glycemic consult placed. F/E/N DM2, low Na. Ppx - SQ heparin Code - DNR/DNI Dispo Med surg (2) Hypoxia: (3) WENDY (obstructive sleep apnea): (4) Coronary artery disease: (5) Hypertension: (6) Hyperlipidemia: (7) DM type 2 (diabetes mellitus, type 2): Admission and Anticipated Discharge Date Admission Date: September 17, 2022 Supervising Physician Co-Signing Physician Notes I personally examined the patient and verified all roca points of history and exam, discussed case, and agree with decision making with Dr Barahona No new physical complaints. Makes sarcastic jokes about dying. Expresses good understanding that he is showing enough stability that a return to [facility] with hospice care may be realistic. Discussed with son as wellhe definitely wants to try to get his dad's goals of care more clearly elucidated as far as what dad would or would not want [facility] be the best with the family having the conversation, offered to provide backup if family needs, and gave the son some strategies to help make the conversation productive. Vitals noted,pleasant nad fatigued breathing unlabored no accessory muscles good effort skin no rashes no pallor or icterus End-stage COPD, pneumonia, COPD exacerbation, pulmonary edema more from COPD and CKD, but also does have HFpEFsteroids, antibiotics, nebulizers, diureticsbut also given his dyspnea and end-stage COPD as well as his desire for hospice/comfort, morphine/Ativan as needed refractory dyspnea. overall stable - stopped antibioticspneumonia treated, slowly weaning steroids. Probably will be able to return to SNF on hospice otherwise as above Subjective Patient seen at bedside this AM. In good spirits. Breathing comfortably on 5L NC. No complaints - no f/c/SOB/CP etc Review of Systems Review of Systems: See HPI Physical Exam Physical Exam: Gen: chronically ill appearing male, dyspneic HEENT: AT NC Resp: CTAB, minimal increased work of breathing, CV: RRR no m/r/g clinically well perfused Abd: non-distended MSK: no gross deformities Psych: appropriate mood and affect Neuro: alert and oriented Skin: warm, dry, no rashes/bruising noted Results & Data Results & Data Vital Signs (Past 12 Hours) Vital Signs Temp Pulse Resp BP Pulse Ox O2 Del Method O2 Flow Rate 09/24/22 03:28 74 16 91 Nasal Cannula 5 09/23/22 22:30 Nasal Cannula 5 09/23/22 22:36 84 18 92 Nasal Cannula 5 09/23/22 22:05 36.8 C 84 16 164/70 H 92 Nasal Cannula 5 09/23/22 19:28 78 18 94 Nasal Cannula 5 Resident Activity Tracking Resident Involvement: Resident Care Provided Care Provided: Adult Hospital Medicine (4) Coronary artery disease Associated angina: without angina Coronary Disease-Associated Artery/Lesion type: [place] artery [place] vs. transplanted heart: [place] heart Qualified Code(s): I25.10 - Atherosclerotic heart disease of [place] coronary artery without angina pectoris (5) Hypertension Hypertension type: essential hypertension Qualified Code(s): I10 - Essential (primary) hypertension (6) Hyperlipidemia Hyperlipidemia type: unspecified Qualified Code(s): E78.5 - Hyperlipidemia, unspecified (7) DM type 2 (diabetes mellitus, type 2) Diabetes mellitus complication status: without complication Diabetes mellitus fdc insulin use: without fdc use Qualified Code(s): E11.9 - Type 2 diabetes mellitus without complications
[2022-09-24] MEDS: FORMOTEROL 20 MCG/2 ML VIAL INH SCH ×2 (07:22→19:32)
[2022-09-24] MEDS: BUDESONIDE 0.5 MG/2 ML VIAL (PULMICORT) INH SCH ×2 (07:23→19:32)
[2022-09-24] MEDS: dilTIAZem HCL 240 MG CAPCR PO SCH ×2 (09:01→20:49)
[2022-09-24] MEDS: methylPREDNISolone 40 MG in SYRINGE 0 ML IV SCH ×2 (09:01→20:50)
[2022-09-24] MEDS: INSULIN ASPART PER UNIT CHARGE SC SCH ×4 (09:03→21:46)
[2022-09-24] MEDS: LANTUS PER UNIT CHARGE SC SCH (09:10)
[2022-09-24] MEDS: PANTOprazole 40 MG TAB PO SCH (09:16)
[2022-09-24] MEDS: AZITHROMYCIN 250 MG TAB PO SCH (09:17)
[2022-09-24] MEDS: FUROSEMIDE 20 MG TAB PO SCH (09:17)
[2022-09-24] MEDS: HEPARIN SOD 5,000 UNIT/0.5 ML VIAL SQ SCH ×2 (09:17→20:48)
[2022-09-24] MEDS: amLODIPine BESYLATE 5 MG TAB PO SCH (09:53)
--- NOTE | 2022-09-24 18:11 | Billing Data ---
Date of Service September 24, 2022 Coding Level of Care Code 01111 SUB INP/OBS CARE MIN
[2022-09-24] MEDS ORDERED: LANTUS PER UNIT CHARGE SC ONE (21:00)
[2022-09-24] MEDS ORDERED: ALBUT/IPRATROP 3MG/0.5MG NEB 3 ML VIAL NEB PRN (22:20)
[2022-09-24] MEDS: ALBUTEROL 0.083% NEBU SOLN 3 ML VIAL NEB PRN (22:35)
[2022-09-25] MEDS: LORazepam 2 MG/1 ML VIAL IV PRN ×2 (00:17→03:04)
--- NOTE | 2022-09-25 07:57 | Hospitalist Progress Note ---
Date of Service September 25, 2022 Assessment & Plan (1) Dyspnea: Plan: 77yo male with chronic respiratory failure with hypoxia, end stage COPD on 4L home oxygen, recently discovered VERN spiculated mass measuring 5.4cm concerning for bronchogenic carcinoma, WENDY, CAD, DM, HTN, HLP and CKD-III presenting from [facility] w/ increased O2 requirement and dyspnea. Acute on chronic hypoxic respiratory failure -In setting of probable aspiration pneumonia and end-stage COPD -CTA of the chest without PE, multifocal airspace disease suggestive of PNA vs aspiration -Requiring 15L O2 at admission -Continue neb treatments - Arformoterol and Budesonide - DuoNeb q 4 hours and Albuterol -Hypertonic saline Nebs BID PRN suspected mucus plugging/chest congestion -Flutter valve -Azithromycin 250mg po daily (changed from home every other day prophylaxis dosing) -Received Zosyn x7 days for multifocal pneumonia- symptoms improved. Will discontinue Zosyn as patient has received adequate coverage. -Methylpred will be converted from 40mg TID to BID. Anticipate switch to PO Prednisone 60 on Monday. * Ativan 1mg q2h PRN, Morphine 5mg q4h for pain/agitation/anxiety * Patient has primarily utilized the Ativan, particularly when restless at night -Appreciate palliative assistance with above Goals of Care/Palliative -Continued discussions with family/patient regarding plan for goals of care -Palliative consulted, appreciate recommendations (see above) -Discussed that with current oxygen status, returning to [facility] for home hospice may or may not be an option however we will approach this day by day -Will avoid unnecessary tests to align with palliative approach, will stop daily blood work Supraventricular tachycardia afternoon of 09/18 -w/ reported hx of SVT. Patient woke up from nap and HR->140s. Lungs w/ noticeable inspiratory crackles. -Reverted to sinus 80s after 1 dose of IV Lopressor -cxr w/o sig change from prior -Repeat intermittent episodes of tachycardia to 130s HR, unprovoked and asymptomatic -Patient now on 2.5mg IV Lopressor q4h PRN -HR in 70s-80s. On telemetry has some ectopy, PVCs although asymptomatic. -Will downgrade from tele to med surg status Acute kidney injury on chronic kidney disease -Baseline Cr 1.6s-1.7s, uptrending Cr this admission to 2.46. s/p 1 dose IV Lasix in the ED -Potassium of 3.5 yesterday and restarted Lasix- will give KCl supplement Moderate pulmonary hypertension and chronic HFpEF -Per 09/2022 echo, new from 07/2021 echo. -EF 60-65%. No RWMA. Moderate concentric LVH. Mild RA/RV dilation. Very small pericardial effusion. -Did intermittently hold home Lasix dosing (40 mg AM 20 mg PM). On 20 mg QAM at presnt Obstructive sleep apnea -Patient is noncompliant with CPAP. Coronary artery disease -Continue ASA 81mg po daily -Continue Atorvastatin 20mg po qHS Hypertension -Continue Diltiazem Hyperlipidemia -Continue Atorvastatin DM type 2 Hold oral agents -Lantus and SSI. Pharmacy glycemic consult placed. F/E/N DM2, low Na. Ppx - SQ heparin Code - DNR/DNI Dispo Med surg (2) Hypoxia: (3) WENDY (obstructive sleep apnea): (4) Coronary artery disease: (5) Hypertension: (6) Hyperlipidemia: (7) DM type 2 (diabetes mellitus, type 2): Admission and Anticipated Discharge Date Admission Date: September 17, 2022 Supervising Physician Co-Signing Physician Notes I personally examined the patient and verified all roca points of history and exam, discussed case, and agree with decision making with Dr Barahona No new physical complaints. Anticipate return to SNF with hospice in the coming days. Daughter present at the bedside today. Discussed with patient and daughter, and he recapped discussion with sonin the end essentially patient would like to remain at SNF, and not be readmitted to the hospital regardless of circumstances. In discussion of management of his disease, versus simply symptom control, he would like attempts made to manage the disease for acute exacerbation, but if that does not quickly alleviate symptoms/suffering (arbitrarily, say within an hour), he would be completely in favor of moving to symptom control measures (sublingual morphine/Ativan) daughter in agreementand they both expressed agreement that the son would be in agreement as well (which is consistent with the overall theme of my discussions with him yesterday before he was able to talk with his father) Vitals noted,pleasant nad fatigued breathing unlabored no accessory muscles good effort skin no rashes no pallor or icterus End-stage COPD, pneumonia, COPD exacerbation, pulmonary edema more from COPD and CKD, but also does have HFpEFsteroids, antibiotics, nebulizers, diureticsbut also given his dyspnea and end-stage COPD as well as his desire for hospice/comfort, morphine/Ativan as needed refractory dyspnea. overall stable - stopped antibioticspneumonia treated, slowly weaning steroids. Able to return to SNF with hospicedoes not want to be readmitted. Would like p.o. Lasix/p.o. prednisone/nebulizers to try to alleviate because of dyspnea prior to dosing of morphine or Ativan, but does not want readmitted, and is absolutely in favor of an overall palliative/comfort first approach otherwise as above Subjective Patient seen at bedside this AM. In good spirits. Breathing comfortably on 5L NC. No complaints. Review of Systems Review of Systems: See HPI Physical Exam Physical Exam: Gen: chronically ill appearing male, dyspneic HEENT: AT NC Resp: no increased work of breathing, CV: clinically well perfused Abd: non-distended MSK: no gross deformities Psych: appropriate mood and affect Neuro: alert and oriented Skin: warm, dry, no rashes/bruising noted Results & Data Results & Data Vital Signs (Past 12 Hours) Vital Signs Temp Pulse Resp BP Pulse Ox O2 Del Method O2 Flow Rate 09/25/22 07:39 36.3 C L 75 18 157/78 H 96 Nasal Cannula 5 09/24/22 22:35 76 18 93 Nasal Cannula 5 09/24/22 20:47 36.5 C 75 18 165/76 H 94 Nasal Cannula 5 Resident Activity Tracking Resident Involvement: Resident Care Provided Care Provided: Adult Hospital Medicine (4) Coronary artery disease Associated angina: without angina Coronary Disease-Associated Artery/Lesion type: [place] artery [place] vs. transplanted heart: [place] heart Qualified Code(s): I25.10 - Atherosclerotic heart disease of [place] coronary artery without angina pectoris (5) Hypertension Hypertension type: essential hypertension Qualified Code(s): I10 - Essential (primary) hypertension (6) Hyperlipidemia Hyperlipidemia type: unspecified Qualified Code(s): E78.5 - Hyperlipidemia, unspecified (7) DM type 2 (diabetes mellitus, type 2) Diabetes mellitus complication status: without complication Diabetes mellitus shelter insulin use: without process development engineer use Qualified Code(s): E11.9 - Type 2 diabetes mellitus without complications
[2022-09-25] MEDS: BUDESONIDE 0.5 MG/2 ML VIAL (PULMICORT) INH SCH ×2 (08:05→19:10)
[2022-09-25] MEDS: FORMOTEROL 20 MCG/2 ML VIAL INH SCH ×2 (08:05→19:10)
[2022-09-25] MEDS: AZITHROMYCIN 250 MG TAB PO SCH (08:58)
[2022-09-25] MEDS: amLODIPine BESYLATE 5 MG TAB PO SCH (08:59)
[2022-09-25] MEDS: PANTOprazole 40 MG TAB PO SCH (08:59)
[2022-09-25] MEDS: methylPREDNISolone 40 MG in SYRINGE 0 ML IV SCH ×2 (08:59→20:32)
[2022-09-25] MEDS: dilTIAZem HCL 240 MG CAPCR PO SCH ×2 (08:59→20:33)
[2022-09-25] MEDS: ASPIRIN 81 MG ECTAB PO SCH (08:59)
[2022-09-25] MEDS: FUROSEMIDE 20 MG TAB PO SCH (09:00)
[2022-09-25] MEDS: HEPARIN SOD 5,000 UNIT/0.5 ML VIAL SQ SCH ×2 (09:00→20:33)
[2022-09-25] MEDS: INSULIN ASPART PER UNIT CHARGE SC SCH ×4 (09:09→21:24)
[2022-09-25] MEDS: LANTUS PER UNIT CHARGE SC SCH (09:09)
--- NOTE | 2022-09-25 18:50 | Billing Data ---
Date of Service September 25, 2022 Coding Level of Care Code 28216 SUB INP/OBS CARE MIN
[2022-09-25] MEDS: ALBUTEROL 0.083% NEBU SOLN 3 ML VIAL NEB PRN (23:47)
[2022-09-25] MEDS: LORazepam 1 MG TAB PO PRN (23:58)
[2022-09-26] MEDS ORDERED: LORazepam 2 MG/1 ML VIAL IV STA (02:37)
[2022-09-26] MEDS: FORMOTEROL 20 MCG/2 ML VIAL INH SCH ×2 (07:03→20:10)
[2022-09-26] MEDS: BUDESONIDE 0.5 MG/2 ML VIAL (PULMICORT) INH SCH ×2 (07:03→20:10)
[2022-09-26] MEDS: dilTIAZem HCL 240 MG CAPCR PO SCH ×2 (08:45→20:23)
[2022-09-26] MEDS: FUROSEMIDE 20 MG TAB PO SCH (08:46)
[2022-09-26] MEDS: PANTOprazole 40 MG TAB PO SCH (08:46)
[2022-09-26] MEDS: amLODIPine BESYLATE 5 MG TAB PO SCH (08:46)
[2022-09-26] MEDS: AZITHROMYCIN 250 MG TAB PO SCH (08:46)
[2022-09-26] MEDS: HEPARIN SOD 5,000 UNIT/0.5 ML VIAL SQ SCH ×2 (08:47→20:21)
[2022-09-26] MEDS: methylPREDNISolone 40 MG in SYRINGE 0 ML IV SCH (08:47)
[2022-09-26] MEDS: LANTUS PER UNIT CHARGE SC SCH (08:51)
[2022-09-26] MEDS: INSULIN ASPART PER UNIT CHARGE SC SCH ×4 (08:51→21:21)
--- NOTE | 2022-09-26 11:37 | Hospitalist Progress Note ---
Date of Service September 26, 2022 Assessment & Plan (1) Dyspnea: Plan: 77yo male with chronic respiratory failure with hypoxia, end stage COPD on 4L home oxygen, recently discovered VERN spiculated mass measuring 5.4cm concerning for bronchogenic carcinoma, WENDY, CAD, DM, HTN, HLP and CKD-III presenting from [facility] w/ increased O2 requirement and dyspnea. Goals of Care/Palliative -Palliative consulted, appreciate recommendations (see above) -With current oxygen status, returning to [facility] for home hospice -Will stop daily blood work -No further hospital admissions. * Ativan 1mg q2h PRN, Morphine 5mg q4h for pain/agitation/anxiety * Morphine prn Acute on chronic hypoxic respiratory failure -In setting of probable aspiration pneumonia and end-stage COPD -CTA of the chest without PE, multifocal airspace disease suggestive of PNA vs aspiration -Requiring 15L O2 at admission Probable aspiration pneumonia with End Stage copd -Continue neb treatments - Arformoterol and Budesonide - DuoNeb q 4 hours and Albuterol -Hypertonic saline Nebs BID PRN suspected mucus plugging/chest congestion -Flutter valve -Azithromycin 250mg po daily (changed from home every other day prophylaxis dosing) -Finished Zosyn x7 days -Methylpred switched to PO Prednisone 60 Moderate pulmonary hypertension and chronic HFpEF -Per 09/2022 echo, new from 07/2021 echo. -EF 60-65%. No RWMA. Moderate concentric LVH. Mild RA/RV dilation. Very small pericardial effusion. -Did intermittently hold home Lasix dosing (40 mg AM 20 mg PM). On 20 mg QAM at present Supraventricular tachycardia afternoon of 09/18 -w/ reported hx of SVT. Patient woke up from nap and HR->140s. Lungs w/ noticeable inspiratory crackles. -Reverted to sinus 80s after 1 dose of IV Lopressor -Repeat intermittent episodes of tachycardia to 130s HR, unprovoked and asymptomatic -Patient now on 2.5mg IV Lopressor q4h PRN -HR in 70s-80s. On telemetry has some ectopy, PVCs although asymptomatic. Acute kidney injury on chronic kidney disease -Baseline Cr 1.6s-1.7s, uptrending Cr this admission to 2.46. s/p 1 dose IV Lasix in the ED -Potassium of 3.5 and restarted Lasix- will give KCl supplement Obstructive sleep apnea -Patient is noncompliant with CPAP. Coronary artery disease -Continue ASA 81mg po daily, Atorvastatin 20mg po qHS Hypertension -Continue Diltiazem DM type 2 Hold oral agents -Lantus and SSI. Pharmacy glycemic consult placed. F/E/N DM2, low Na. Ppx - SQ heparin Code - DNR/DNI Dispo Med surg (2) Hypoxia: (3) WENDY (obstructive sleep apnea): (4) Coronary artery disease: (5) Hypertension: (6) Hyperlipidemia: (7) DM type 2 (diabetes mellitus, type 2): Admission and Anticipated Discharge Date Admission Date: September 17, 2022 Supervising Physician Co-Signing Physician Notes Resident Physician Supervision Note: I independently interviewed and examined the patient and verified the roca history and physical, reviewed labs and image studies and agree with resident findings and care plan. Subjective Patient seen and examined at bedside. No acute events overnight. Currently on 5L NC. Patient inquires about switching all remaining meds to PO in preparation of returning to [facility]. Denies chest pain. Review of Systems Review of Systems: As per above Physical Exam Constitutional: + frail appearing and cooperative Eyes: + anicteric sclerae ENMT: External ears and nose normal. Moist mucous membranes. Respiratory: Breathing comfortably at rest. Occasional cough, +rhonchi. Cardiovascular: Rate/Rhythm: regular rate and regular rhythm No significant lower extremity edema. Skin: no rashes, warm and dry Psychiatric: A+Ox3, euthymic affect Results & Data Results & Data Vital Signs (Past 12 Hours) Vital Signs Temp Pulse Resp BP Pulse Ox O2 Del Method O2 Flow Rate 09/26/22 10:30 Nasal Cannula 09/26/22 08:07 36.4 C L 80 16 164/69 H 91 Nasal Cannula 5 09/26/22 07:04 75 20 92 Nasal Cannula 5 09/25/22 23:47 74 18 91 Nasal Cannula 5 Resident Activity Tracking Resident Involvement: Resident Care Provided Care Provided: Adult Hospital Medicine (4) Coronary artery disease Associated angina: without angina Coronary Disease-Associated Artery/Lesion type: [place] artery [place] vs. transplanted heart: [place] heart Qualified Code(s): I25.10 - Atherosclerotic heart disease of [place] coronary artery without angina pectoris (5) Hypertension Hypertension type: essential hypertension Qualified Code(s): I10 - Essential (primary) hypertension (6) Hyperlipidemia Hyperlipidemia type: unspecified Qualified Code(s): E78.5 - Hyperlipidemia, unspecified (7) DM type 2 (diabetes mellitus, type 2) Diabetes mellitus complication status: without complication Diabetes mellitus extermination inspector insulin use: without [place] [facility] use Qualified Code(s): E11.9 - Type 2 diabetes mellitus without complications
--- NOTE | 2022-09-26 12:40 | Pharmacy Report ---
Pharmacy Glycemic Short Note 2 - Date of Service September 26, 2022 - Glycemic Short BSG Results (Last 24 hours): 09/25/22 09/25/22 09/26/22 17:14 20:15 07:38 POC Glucose 149 H 161 H 188 H 09/26/22 11:48 POC Glucose 269 H OUTPATIENT ANTIDIABETIC REGIMEN: * Metformin 1 g PO BIDM * Farxiga 10 mg PO daily * Rybelsus 14 mg PO daily * HbA1c: 8% (09/05/22) ASSESSMENT: 09/26/22 * BSGs yesterday were [phone] mg/dL. Patient received 106 units of insulin (35units of basal + 71 units of bolus). * Fasting today is 188 mg/dL. Continue 35 units of basal for today. Re-evaluate tomorrow. * Patient received solu-medrol 40 mg IV this morning and a dose of prednisone 40 mg this afternoon. Starting 60 mg tomorrow. * Tighten CR slightly since BSGs trend up once in range. Will loosen CF to prevent over-correction. 09/23/22: * Patient seems to be exquisitely steroid sensitive. Currently receiving almost double the amount of Novolog as anticipated by a weight-based severe stress estimate. Determination of steroid plan ongoing will be essential to insulin dose adjustments. * Discussed with Dr. Gunn - tapering from 40 mg IV TID to BID starting today. Anticipate duration of a few days at this dose. Then further reduction to prednisone 60 mg PO anticipated, possibly on Monday * AM labs have stopped - goal is comfort at this point with hopeful plan to discharge home on hospice. SCr remained elevated yesterday - Lantus may or may not be at steady state yet * Would like to avoid low's as primary goal for comfort goals, but BSG's are still significantly elevated and further adjustments are warranted. Goal BSG's likely ~140-220 mg/dL at this time. Most remain above this range. * Increased Lantus this AM, although not aggressively as steroids mainly affect prandial coverage and may not yet be at steady state given renal dysfunction. However, with steroid taper starting today, will decrease PM dose of Lantus * Tightened Novolog with breakfast and lunch today given recent hyperglycemia. Will loosen slightly at dinner given steroid taper. Plan to loosen further tomorrow AM to help avoid hypoglycemia. * Will also add an overnight check tonight for the dual purpose of screening for hypoglycemia given steroid taper with more aggressive Lantus dose and also for ongoing hyperglycemia. Looser Novolog parameters ordered. 09/22/22: * No plan at this time to wean/discontinue IV Solu-medrol * BSGs remain elevated (undoubtedly from q8h Solu-medrol) - will plan to increase basal and tighten bolus insulin parameters further today * Plan appears to be to discharge to home with hospice (will allow for leniency in BSG control with a goal of limiting hypoglycemia) 09/21/22: * BSGs have been uncontrolled since the initiation of IV SoluMedrol. * Despite aggressive basal/bolus insulin dosing, BSGs have been persistently high. * With patient's renal function (SCr 2.73 today), expect that Lantus has not reached steady-state yet. Once it does, expect that patient's dose may require adjustment. Also expect insulin needs to decrease if/when steroids taper or stop. * Given that pt's family is starting to consider palliative measures, ultimate goal will be to prevent hypoglycemia. Would prefer BSGs stay below 200-250 mg/dL, though. * Will continue to follow and adjust regimen conservatively. 09/19/22: * BSGs improved following consult yesterday * Patient received 54 units of insulin (15 units of basal, 31 units of SC bolus, and 8 units of IV regular insulin) * Fasting BSG of 130 mg/dL this morning * Did not anticipate changes to insulin regimen today, but Solu-medrol 40 mg IV q8h initiated for this afternoon * Will tighten Novolog and increase basal insulin to equal weight-based stress of 3 dosing 09/18/22: * TS is a 77 year old male who presented to ED overnight on 09/16-09/17 with worsening shortness of breath * Pharmacy consulted for glycemic management this morning (09/18) due to persistently elevated BSGs yesterday * Zosyn + azithromycin ordered, no steroids at this time * Will utilize past inpatient glycemic data to guide initial insulin dosing * Lunch BSG of 326 mg/dL - will give one-time IV insulin bolus PLAN FOR INPATIENT GLYCEMIC CONTROL: * Hold outpatient oral diabetes medications * Basal insulin * Lantus 35 units SC x1 this AM then re-evaluate * Bolus insulin * NovoLog per scale ACHS or Q6hrs while NPO * Goal Range: Low 110 mg/dL - High 140 mg/dL * Correction Factor: 18 mg/dL/unit * Carb ratio: 2.5 g CHO/unit
[2022-09-26] MEDS ORDERED: predniSONE 20 MG TAB PO ONE (17:00)
[2022-09-26] MEDS: ALBUTEROL 0.083% NEBU SOLN 3 ML VIAL NEB PRN (23:09)
[2022-09-26] MEDS: LORazepam 1 MG TAB PO PRN (23:24)
[2022-09-27] MEDS: LORazepam 1 MG TAB PO PRN ×2 (03:03→22:45)
[2022-09-27] MEDS: BUDESONIDE 0.5 MG/2 ML VIAL (PULMICORT) INH SCH ×2 (07:48→19:57)
[2022-09-27] MEDS: FORMOTEROL 20 MCG/2 ML VIAL INH SCH ×2 (07:48→19:57)
[2022-09-27] MEDS: HEPARIN SOD 5,000 UNIT/0.5 ML VIAL SQ SCH ×2 (08:17→20:39)
[2022-09-27] MEDS: AZITHROMYCIN 250 MG TAB PO SCH (08:17)
[2022-09-27] MEDS: ASPIRIN 81 MG ECTAB PO SCH (08:17)
[2022-09-27] MEDS: PANTOprazole 40 MG TAB PO SCH (08:17)
[2022-09-27] MEDS: dilTIAZem HCL 240 MG CAPCR PO SCH ×2 (08:17→20:38)
[2022-09-27] MEDS: FUROSEMIDE 20 MG TAB PO SCH (08:18)
[2022-09-27] MEDS: predniSONE 20 MG TAB PO SCH (08:18)
[2022-09-27] MEDS: amLODIPine BESYLATE 5 MG TAB PO SCH (08:19)
[2022-09-27] MEDS ORDERED: NovoLIN-N (NPH) PER UNIT CHARGE SQ SCH (09:00)
[2022-09-27] MEDS: INSULIN ASPART PER UNIT CHARGE SC SCH ×4 (09:20→20:38)
--- NOTE | 2022-09-27 09:36 | Communication Note ---
Date of Service: September 27, 2022 Brief Pall med note patient's oxygen titrated to 5lpm NC and he is preparing for dc back to [facility] where he will be enrolled in hospice. No acute needs at this time, has reached his average baseline please dc to SNF with 5 day rx for oral haldol, morphine elixir and ativan tabs PO while he waits to enroll in hospice and the paperwork is processed. I will sign off but remain available for re engagement as needed. no charge submitted Thank you for allowing us to participate in the ongoing care of this patient. Please don't hesitate to call or page with any additional concerns. Dr. Nakia Wells DNP Director, Palliative Care
--- NOTE | 2022-09-27 10:47 | Pharmacy Report ---
Pharmacy Glycemic Short Note 2 - Date of Service September 27, 2022 - Glycemic Short BSG Results (Last 24 hours): 09/26/22 09/26/22 09/26/22 11:48 17:04 20:47 POC Glucose 269 H 182 H 121 H 09/27/22 08:12 POC Glucose 191 H OUTPATIENT ANTIDIABETIC REGIMEN: * Metformin 1 g PO BIDM * Farxiga 10 mg PO daily * Rybelsus 14 mg PO daily * HbA1c: 8% (09/05/22) ASSESSMENT: 09/27/22 * Patient received total of 119 units of insulin yesterday, of which 35 units were basal * Fasting BSG 191 mg/dl- changed to prednisone 60 mg once daily. Anticipate insulin needs to decrease since steroids decreasing * Will add once daily NPH to help with coverage of daily prednisone - will scale back on prior basal by ~25% and trial NPH 25 units daily with prednisone 60 mg * Continued with tighter CR with breakfast as lunch BSG tends to be elevated. Plan to loosen CR at lunch time as I anticipate insulin needs to decrease 09/26/22 * BSGs yesterday were [phone] mg/dL. Patient received 106 units of insulin (35units of basal + 71 units of bolus). * Fasting today is 188 mg/dL. Continue 35 units of basal for today. Re-evaluate tomorrow. * Patient received solu-medrol 40 mg IV this morning and a dose of prednisone 40 mg this afternoon. Starting 60 mg tomorrow. * Tighten CR slightly since BSGs trend up once in range. Will loosen CF to prevent over-correction. 09/23/22: * Patient seems to be exquisitely steroid sensitive. Currently receiving almost double the amount of Novolog as anticipated by a weight-based severe stress estimate. Determination of steroid plan ongoing will be essential to insulin dose adjustments. * Discussed with Dr. Gunn - tapering from 40 mg IV TID to BID starting today. Anticipate duration of a few days at this dose. Then further reduction to prednisone 60 mg PO anticipated, possibly on Monday * AM labs have stopped - goal is comfort at this point with hopeful plan to discharge home on hospice. SCr remained elevated yesterday - Lantus may or may not be at steady state yet * Would like to avoid low's as primary goal for comfort goals, but BSG's are still significantly elevated and further adjustments are warranted. Goal BSG's likely ~140-220 mg/dL at this time. Most remain above this range. * Increased Lantus this AM, although not aggressively as steroids mainly affect prandial coverage and may not yet be at steady state given renal dysfunction. However, with steroid taper starting today, will decrease PM dose of Lantus * Tightened Novolog with breakfast and lunch today given recent hyperglycemia. Will loosen slightly at dinner given steroid taper. Plan to loosen further tomorrow AM to help avoid hypoglycemia. * Will also add an overnight check tonight for the dual purpose of screening for hypoglycemia given steroid taper with more aggressive Lantus dose and also for ongoing hyperglycemia. Looser Novolog parameters ordered. 09/22/22: * No plan at this time to wean/discontinue IV Solu-medrol * BSGs remain elevated (undoubtedly from q8h Solu-medrol) - will plan to increase basal and tighten bolus insulin parameters further today * Plan appears to be to discharge to home with hospice (will allow for leniency in BSG control with a goal of limiting hypoglycemia) 09/21/22: * BSGs have been uncontrolled since the initiation of IV SoluMedrol. * Despite aggressive basal/bolus insulin dosing, BSGs have been persistently high. * With patient's renal function (SCr 2.73 today), expect that Lantus has not reached steady-state yet. Once it does, expect that patient's dose may require adjustment. Also expect insulin needs to decrease if/when steroids taper or stop. * Given that pt's family is starting to consider palliative measures, ultimate goal will be to prevent hypoglycemia. Would prefer BSGs stay below 200-250 mg/dL, though. * Will continue to follow and adjust regimen conservatively. 09/19/22: * BSGs improved following consult yesterday * Patient received 54 units of insulin (15 units of basal, 31 units of SC bolus, and 8 units of IV regular insulin) * Fasting BSG of 130 mg/dL this morning * Did not anticipate changes to insulin regimen today, but Solu-medrol 40 mg IV q8h initiated for this afternoon * Will tighten Novolog and increase basal insulin to equal weight-based stress of 3 dosing 09/18/22: * TS is a 77 year old male who presented to ED overnight on 09/16-09/17 with worsening shortness of breath * Pharmacy consulted for glycemic management this morning (09/18) due to persistently elevated BSGs yesterday * Zosyn + azithromycin ordered, no steroids at this time * Will utilize past inpatient glycemic data to guide initial insulin dosing * Lunch BSG of 326 mg/dL - will give one-time IV insulin bolus PLAN FOR INPATIENT GLYCEMIC CONTROL: * Hold outpatient oral diabetes medications * Basal insulin * NPH 25 units daily with PO prednisone 60 mg once daily * Bolus insulin * NovoLog per scale ACHS or Q6hrs while NPO * Goal Range: Low 110 mg/dL - High 140 mg/dL * Correction Factor: 18 mg/dL/unit * Carb ratio: 4 g CHO/unit
--- NOTE | 2022-09-27 12:07 | Hospitalist Progress Note ---
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 Goals of Care/Palliative -Palliative consulted. Plan for SNF discharge with hospice. -With current oxygen status, returning to [facility] for home hospice -Will stop daily blood work -No further hospital admissions. * Ativan 1mg q2h PRN, Morphine 5mg q4h for pain/agitation/anxiety * Morphine prn -Planning for discharge to [facility]/Home Hospice, but due to delays in delivery of high flow oxygen will plan for discharge tomorrow Acute on chronic hypoxic respiratory failure -In setting of probable aspiration pneumonia and end-stage COPD -CTA of the chest without PE, multifocal airspace disease suggestive of PNA vs aspiration -Required 15L O2 at admission. Now sating well at 5L. Probable aspiration pneumonia with End Stage copd -Continue neb treatments - Arformoterol and Budesonide - DuoNeb q 4 hours and Albuterol -Hypertonic saline Nebs BID PRN suspected mucus plugging/chest congestion -Flutter valve -Azithromycin 250mg po daily -Finished Zosyn x7 days for multifocal pneumonia -Methylpred switched to PO Prednisone 60 -Plan for extended Prednisone taper Moderate pulmonary hypertension and chronic HFpEF -Per 09/2022 echo, new from 07/2021 echo. -EF 60-65%. No RWMA. Moderate concentric LVH. Mild RA/RV dilation. Very small pericardial effusion. -Did intermittently hold home Lasix dosing (40 mg AM 20 mg PM). On 20 mg QAM at present Supraventricular tachycardia afternoon of 09/18 -w/ reported hx of SVT. Patient woke up from nap and HR->140s. -Reverted to sinus 80s after 1 dose of IV Lopressor -Repeat intermittent episodes of tachycardia to 130s HR, unprovoked and asymptomatic. -HR in 70s-80s. On telemetry had some ectopy, PVCs although asymptomatic. -No additional episodes requiring Lopressor Acute kidney injury on chronic kidney disease -Baseline Cr 1.6s-1.7s, uptrending Cr this admission to 2.46. s/p IV Lasix in the ED -Potassium of 3.5 and restarted Lasix 20mg. Obstructive sleep apnea -Patient is noncompliant with CPAP. Coronary artery disease -Continue ASA 81mg po daily, Atorvastatin 20mg po qHS Hypertension -Continue Diltiazem DM type 2 -Hold oral agents -Lantus and SSI. Pharmacy glycemic consult placed. F/E/N DM2, low Na. Ppx - SQ heparin Code - DNR/DNI Dispo Med surg (2) Hypoxia: (3) WENDY (obstructive sleep apnea): (4) Coronary artery disease: (5) Hypertension: (6) Hyperlipidemia: (7) DM type 2 (diabetes mellitus, type 2): Admission and Anticipated Discharge Date Admission Date: September 17, 2022 Supervising Physician Co-Signing Physician Notes Resident Physician Supervision Note: I independently interviewed and examined the patient and verified the roca history and physical, reviewed labs and image studies and agree with resident findings and care plan. Subjective Patient seen and examined at bedside. No acute events overnight, patient states he slept well. He inquires about why he is still receiving Lasix. Denies any chest pain. On 5L NC. Review of Systems Review of Systems: As per above Physical Exam Constitutional: + frail appearing and cooperative Eyes: + anicteric sclerae ENMT: External ears and nose normal, moist mucous membranes Respiratory: no respiratory distress Auscultation: + rhonchi and + wheezes Cardiovascular: Rate/Rhythm: regular rate, regular rhythm and + tachycardic Skin: no rashes, warm and dry Psychiatric: A+Ox3, euthymic affect Results & Data Results & Data Vital Signs (Past 12 Hours) Vital Signs Temp Pulse Resp BP Pulse Ox O2 Del Method O2 Flow Rate 09/27/22 08:28 Nasal Cannula 5 09/27/22 07:57 36.5 C 71 20 166/84 H 97 Nebulizer 09/27/22 07:48 73 18 93 Nasal Cannula 5 Resident Activity Tracking Resident Involvement: Resident Care Provided Care Provided: Adult Hospital Medicine (4) Coronary artery disease Associated angina: without angina Coronary Disease-Associated Artery/Lesion type: [place] artery [place] vs. transplanted heart: [place] heart Qualified Code(s): I25.10 - Atherosclerotic heart disease of [place] coronary artery without angina pectoris (5) Hypertension Hypertension type: essential hypertension Qualified Code(s): I10 - Essential (primary) hypertension (6) Hyperlipidemia Hyperlipidemia type: unspecified Qualified Code(s): E78.5 - Hyperlipidemia, unspecified (7) DM type 2 (diabetes mellitus, type 2) Diabetes mellitus complication status: without complication Diabetes mellitus shelter insulin use: without intermediate card tender use Qualified Code(s): E11.9 - Type 2 diabetes mellitus without complications
[2022-09-27] MEDS: ALBUTEROL 0.083% NEBU SOLN 3 ML VIAL NEB PRN (22:15)
[2022-09-28] MEDS: LORazepam 1 MG TAB PO PRN ×4 (00:31→23:10)
[2022-09-28] MEDS: FORMOTEROL 20 MCG/2 ML VIAL INH SCH ×2 (07:06→19:24)
[2022-09-28] MEDS: BUDESONIDE 0.5 MG/2 ML VIAL (PULMICORT) INH SCH ×2 (07:06→19:24)
[2022-09-28] MEDS: predniSONE 20 MG TAB PO SCH (08:07)
[2022-09-28] MEDS: amLODIPine BESYLATE 5 MG TAB PO SCH (08:07)
[2022-09-28] MEDS: dilTIAZem HCL 240 MG CAPCR PO SCH ×2 (08:07→20:09)
[2022-09-28] MEDS: FUROSEMIDE 20 MG TAB PO SCH (08:08)
[2022-09-28] MEDS: PANTOprazole 40 MG TAB PO SCH (08:08)
[2022-09-28] MEDS: HEPARIN SOD 5,000 UNIT/0.5 ML VIAL SQ SCH ×3 (08:08→20:12)
[2022-09-28] MEDS: AZITHROMYCIN 250 MG TAB PO SCH (08:08)
[2022-09-28] MEDS ORDERED: NovoLIN-N (NPH) PER UNIT CHARGE SQ SCH (09:00)
[2022-09-28] MEDS: INSULIN ASPART PER UNIT CHARGE SC SCH ×4 (09:19→20:06)
--- NOTE | 2022-09-28 14:41 | Pharmacy Report ---
Pharmacy Glycemic Short Note 2 - Date of Service September 28, 2022 - Glycemic Short BSG Results (Last 24 hours): 09/27/22 09/27/22 09/28/22 17:20 20:31 08:15 POC Glucose 269 H 194 H 105 H 09/28/22 12:11 POC Glucose 117 H OUTPATIENT ANTIDIABETIC REGIMEN: * Metformin 1 g PO BIDM * Farxiga 10 mg PO daily * Rybelsus 14 mg PO daily * HbA1c: 8% (09/05/22) ASSESSMENT: 09/28/22 * Patient received total of 124 units of insulin yesterday, of which 25 units were NPH to cover prednisone * Fasting BSG 105 mg/dL - BSGs yesterday in ~200s. However improving much this AM. Will continue with NPH for today with PO pred 60 mg * Lunch BSG much improved since day prior, will scale back with CR 09/27/22 * Patient received total of 119 units of insulin yesterday, of which 35 units were basal * Fasting BSG 191 mg/dl- changed to prednisone 60 mg once daily. Anticipate insulin needs to decrease since steroids decreasing * Will add once daily NPH to help with coverage of daily prednisone - will scale back on prior basal by ~25% and trial NPH 25 units daily with prednisone 60 mg * Continued with tighter CR with breakfast as lunch BSG tends to be elevated. Plan to loosen CR at lunch time as I anticipate insulin needs to decrease 09/26/22 * BSGs yesterday were [phone] mg/dL. Patient received 106 units of insulin (35units of basal + 71 units of bolus). * Fasting today is 188 mg/dL. Continue 35 units of basal for today. Re-evaluate tomorrow. * Patient received solu-medrol 40 mg IV this morning and a dose of prednisone 40 mg this afternoon. Starting 60 mg tomorrow. * Tighten CR slightly since BSGs trend up once in range. Will loosen CF to prevent over-correction. 09/23/22: * Patient seems to be exquisitely steroid sensitive. Currently receiving almost double the amount of Novolog as anticipated by a weight-based severe stress estimate. Determination of steroid plan ongoing will be essential to insulin dose adjustments. * Discussed with Dr. Gunn - tapering from 40 mg IV TID to BID starting today. Anticipate duration of a few days at this dose. Then further reduction to prednisone 60 mg PO anticipated, possibly on Monday * AM labs have stopped - goal is comfort at this point with hopeful plan to discharge home on hospice. SCr remained elevated yesterday - Lantus may or may not be at steady state yet * Would like to avoid low's as primary goal for comfort goals, but BSG's are still significantly elevated and further adjustments are warranted. Goal BSG's likely ~140-220 mg/dL at this time. Most remain above this range. * Increased Lantus this AM, although not aggressively as steroids mainly affect prandial coverage and may not yet be at steady state given renal dysfunction. However, with steroid taper starting today, will decrease PM dose of Lantus * Tightened Novolog with breakfast and lunch today given recent hyperglycemia. Will loosen slightly at dinner given steroid taper. Plan to loosen further tomorrow AM to help avoid hypoglycemia. * Will also add an overnight check tonight for the dual purpose of screening for hypoglycemia given steroid taper with more aggressive Lantus dose and also for ongoing hyperglycemia. Looser Novolog parameters ordered. 09/22/22: * No plan at this time to wean/discontinue IV Solu-medrol * BSGs remain elevated (undoubtedly from q8h Solu-medrol) - will plan to increase basal and tighten bolus insulin parameters further today * Plan appears to be to discharge to home with hospice (will allow for leniency in BSG control with a goal of limiting hypoglycemia) 09/21/22: * BSGs have been uncontrolled since the initiation of IV SoluMedrol. * Despite aggressive basal/bolus insulin dosing, BSGs have been persistently high. * With patient's renal function (SCr 2.73 today), expect that Lantus has not reached steady-state yet. Once it does, expect that patient's dose may require adjustment. Also expect insulin needs to decrease if/when steroids taper or stop. * Given that pt's family is starting to consider palliative measures, ultimate goal will be to prevent hypoglycemia. Would prefer BSGs stay below 200-250 mg/dL, though. * Will continue to follow and adjust regimen conservatively. 09/19/22: * BSGs improved following consult yesterday * Patient received 54 units of insulin (15 units of basal, 31 units of SC bolus, and 8 units of IV regular insulin) * Fasting BSG of 130 mg/dL this morning * Did not anticipate changes to insulin regimen today, but Solu-medrol 40 mg IV q8h initiated for this afternoon * Will tighten Novolog and increase basal insulin to equal weight-based stress of 3 dosing 09/18/22: * TS is a 77 year old male who presented to ED overnight on 09/16-09/17 with worsening shortness of breath * Pharmacy consulted for glycemic management this morning (09/18) due to persistently elevated BSGs yesterday * Zosyn + azithromycin ordered, no steroids at this time * Will utilize past inpatient glycemic data to guide initial insulin dosing * Lunch BSG of 326 mg/dL - will give one-time IV insulin bolus PLAN FOR INPATIENT GLYCEMIC CONTROL: * Hold outpatient oral diabetes medications * Basal insulin * NPH 25 units daily with PO prednisone 60 mg once daily * Bolus insulin * NovoLog per scale ACHS or Q6hrs while NPO * Goal Range: Low 110 mg/dL - High 140 mg/dL * Correction Factor: 18 mg/dL/unit * Carb ratio: 5 g CHO/unit
--- NOTE | 2022-09-28 16:09 | Hospitalist Progress Note ---
Date of Service September 28, 2022 Assessment & Plan (1) Dyspnea: Plan: 77yo male with chronic respiratory failure with hypoxia, end stage COPD on 4L home oxygen, recently discovered VERN spiculated mass measuring 5.4cm concerning for bronchogenic carcinoma, WENDY, CAD, DM, HTN, HLP and CKD-III presenting from [facility] w/ increased O2 requirement and dyspnea. Goals of Care/Palliative -Palliative consulted. Plan for SNF discharge with hospice. -With current oxygen status, returning to [facility] for home hospice. Pending arrangement of high flow machine at the facility. Hopeful for discharge to [facility] on hospice tomorrow. -Stop daily blood work -No further hospital admissions. * Ativan 1mg q2h PRN, Morphine 5mg q4h for pain/agitation/anxiety * Morphine prn-Planning for discharge to [facility]/Home Hospice, but due to delays in delivery of high flow oxygen will plan for discharge tomorrow Acute on chronic hypoxic respiratory failure -In setting of probable aspiration pneumonia and end-stage COPD -CTA of the chest without PE, multifocal airspace disease suggestive of PNA vs aspiration -Required 15L O2 at admission. Now sating well at 5L. Probable aspiration pneumonia with End Stage copd -Continue neb treatments - Arformoterol and Budesonide - DuoNeb q 4 hours and Albuterol -Hypertonic saline Nebs BID PRN suspected mucus plugging/chest congestion -Flutter valve -Azithromycin course - switched back to every day home dose. -Finished Zosyn x7 days for multifocal pneumonia -Methylpred switched to PO Prednisone 60 -Plan for extended Prednisone taper Moderate pulmonary hypertension and chronic HFpEF -Per 09/2022 echo, new from 07/2021 echo. -EF 60-65%. No RWMA. Moderate concentric LVH. Mild RA/RV dilation. Very small pericardial effusion. -Home azithromycin q2d -Did intermittently hold home Lasix dosing (40 mg AM 20 mg PM). On 20 mg QAM at present Supraventricular tachycardia afternoon of 09/18 -w/ reported hx of SVT. Patient woke up from nap and HR->140s. -Reverted to sinus 80s after 1 dose of IV Lopressor -Repeat intermittent episodes of tachycardia to 130s HR, unprovoked and asymptomatic. -HR in 70s-80s. On telemetry had some ectopy, PVCs although asymptomatic. -No additional episodes requiring Lopressor Acute kidney injury on chronic kidney disease -Baseline Cr 1.6s-1.7s, uptrending Cr this admission to 2.46. s/p IV Lasix in the ED -Potassium of 3.5 and restarted Lasix 20mg. Obstructive sleep apnea -Patient is noncompliant with CPAP. Coronary artery disease -Continue ASA 81mg po daily, Atorvastatin 20mg po qHS Hypertension -Continue Diltiazem DM type 2 -Hold oral agents -Lantus and SSI. Pharmacy glycemic consult placed. F/E/N DM2, low Na. Ppx - SQ heparin Code - DNR/DNI Dispo Med surg; plan for discharge to [facility] on hospice (2) Hypoxia: (3) WENDY (obstructive sleep apnea): (4) Coronary artery disease: (5) Hypertension: (6) Hyperlipidemia: (7) DM type 2 (diabetes mellitus, type 2): Admission and Anticipated Discharge Date Admission Date: September 17, 2022 Supervising Physician Co-Signing Physician Notes Resident Physician Supervision Note: I independently interviewed and examined the patient and verified the roca history and physical, reviewed labs and image studies and agree with resident findings and care plan. Subjective Patient seen and examined at bedside this morning. No acute events overnight. Patient states that he is sleeping well and eating well. He continues on 5L NC. Patient with no new complaints or concerns. He is hopeful to be discharged today. Review of Systems Review of Systems: As per above Physical Exam Physical Exam: GENERAL: Frail appearing but in no acute distress. Vital signs reviewed as abov e. EYES: Anicteric sclerae. HENT: Moist mucous membranes. RESPIRATORY: No conversational dyspnea. Poor air movement bilaterally w/ + wheezing and crackles. CARDIOVASCULAR: Regular rate and rhythm. SKIN: Warm, dry. NEUROLOGIC: Alert and oriented. Normal speech. No gross focal neurological deficits. PSYCHIATRIC: Cooperative. Appropriate mood and affect. Results & Data Results & Data Vital Signs (Past 12 Hours) Vital Signs Temp Pulse Resp BP Pulse Ox O2 Del Method O2 Flow Rate 09/28/22 08:15 Nasal Cannula 5 09/28/22 07:28 36.3 C L 82 18 155/77 H 94 Nasal Cannula 5 09/28/22 07:07 78 18 94 Nasal Cannula 5 Resident Activity Tracking Resident Involvement: Resident Care Provided Care Provided: Adult Hospital Medicine (4) Coronary artery disease Associated angina: without angina Coronary Disease-Associated Artery/Lesion type: [place] artery [place] vs. transplanted heart: [place] heart Qualified Code(s): I25.10 - Atherosclerotic heart disease of [place] coronary artery without angina pectoris (5) Hypertension Hypertension type: essential hypertension Qualified Code(s): I10 - Essential (primary) hypertension (6) Hyperlipidemia Hyperlipidemia type: unspecified Qualified Code(s): E78.5 - Hyperlipidemia, unspecified (7) DM type 2 (diabetes mellitus, type 2) Diabetes mellitus complication status: without complication Diabetes mellitus retirement insulin use: without retirement use Qualified Code(s): E11.9 - Type 2 diabetes mellitus without complications
[2022-09-28] MEDS: ALBUTEROL 0.083% NEBU SOLN 3 ML VIAL NEB PRN (22:54)
[2022-09-29] MEDS: LORazepam 1 MG TAB PO PRN ×3 (00:45→22:33)
[2022-09-29] MEDS: BUDESONIDE 0.5 MG/2 ML VIAL (PULMICORT) INH SCH ×2 (07:13→20:26)
[2022-09-29] MEDS: FORMOTEROL 20 MCG/2 ML VIAL INH SCH ×2 (07:13→20:26)
[2022-09-29] MEDS: ASPIRIN 81 MG ECTAB PO SCH ×2 (08:36→08:43)
[2022-09-29] MEDS: INSULIN ASPART PER UNIT CHARGE SC SCH ×4 (08:39→21:04)
[2022-09-29] MEDS: amLODIPine BESYLATE 5 MG TAB PO SCH (08:43)
[2022-09-29] MEDS: FUROSEMIDE 20 MG TAB PO SCH (08:44)
[2022-09-29] MEDS: dilTIAZem HCL 240 MG CAPCR PO SCH ×2 (08:44→20:16)
[2022-09-29] MEDS: PANTOprazole 40 MG TAB PO SCH (08:45)
[2022-09-29] MEDS: predniSONE 20 MG TAB PO SCH (08:45)
[2022-09-29] MEDS: HEPARIN SOD 5,000 UNIT/0.5 ML VIAL SQ SCH ×2 (08:46→20:17)
[2022-09-29] MEDS ORDERED: NovoLIN-N (NPH) PER UNIT CHARGE SQ SCH (09:00)
--- NOTE | 2022-09-29 12:56 | Pharmacy Report ---
Pharmacy Glycemic Short Note 2 - Date of Service September 29, 2022 - Glycemic Short BSG Results (Last 24 hours): 09/28/22 09/28/22 09/29/22 17:21 19:58 08:09 POC Glucose 139 H 183 H 192 H 09/29/22 09/29/22 09/29/22 12:10 12:11 12:30 POC Glucose 64 L* 64 L* 72 OUTPATIENT ANTIDIABETIC REGIMEN: * Metformin 1 g PO BIDM * Farxiga 10 mg PO daily * Rybelsus 14 mg PO daily * HbA1c: 8% (09/05/22) ASSESSMENT: 09/29: * Fasting BSG today was 192 mg/dl. Novolog carb ratio was tightened this AM. Pre-lunch BSG dropped to 64 mg/dl. * Carb ratio loosened back to 5. 09/28/22 * Patient received total of 124 units of insulin yesterday, of which 25 units were NPH to cover prednisone * Fasting BSG 105 mg/dL - BSGs yesterday in ~200s. However improving much this AM. Will continue with NPH for today with PO pred 60 mg * Lunch BSG much improved since day prior, will scale back with CR 09/27/22 * Patient received total of 119 units of insulin yesterday, of which 35 units were basal * Fasting BSG 191 mg/dl- changed to prednisone 60 mg once daily. Anticipate insulin needs to decrease since steroids decreasing * Will add once daily NPH to help with coverage of daily prednisone - will scale back on prior basal by ~25% and trial NPH 25 units daily with prednisone 60 mg * Continued with tighter CR with breakfast as lunch BSG tends to be elevated. Plan to loosen CR at lunch time as I anticipate insulin needs to decrease 09/26/22 * BSGs yesterday were [phone] mg/dL. Patient received 106 units of insulin (35units of basal + 71 units of bolus). * Fasting today is 188 mg/dL. Continue 35 units of basal for today. Re-evaluate tomorrow. * Patient received solu-medrol 40 mg IV this morning and a dose of prednisone 40 mg this afternoon. Starting 60 mg tomorrow. * Tighten CR slightly since BSGs trend up once in range. Will loosen CF to prevent over-correction. 09/23/22: * Patient seems to be exquisitely steroid sensitive. Currently receiving almost double the amount of Novolog as anticipated by a weight-based severe stress estimate. Determination of steroid plan ongoing will be essential to insulin dose adjustments. * Discussed with Dr. Gunn - tapering from 40 mg IV TID to BID starting today. Anticipate duration of a few days at this dose. Then further reduction to prednisone 60 mg PO anticipated, possibly on Monday * AM labs have stopped - goal is comfort at this point with hopeful plan to discharge home on hospice. SCr remained elevated yesterday - Lantus may or may not be at steady state yet * Would like to avoid low's as primary goal for comfort goals, but BSG's are still significantly elevated and further adjustments are warranted. Goal BSG's likely ~140-220 mg/dL at this time. Most remain above this range. * Increased Lantus this AM, although not aggressively as steroids mainly affect prandial coverage and may not yet be at steady state given renal dysfunction. However, with steroid taper starting today, will decrease PM dose of Lantus * Tightened Novolog with breakfast and lunch today given recent hyperglycemia. Will loosen slightly at dinner given steroid taper. Plan to loosen further tomorrow AM to help avoid hypoglycemia. * Will also add an overnight check tonight for the dual purpose of screening for hypoglycemia given steroid taper with more aggressive Lantus dose and also for ongoing hyperglycemia. Looser Novolog parameters ordered. 09/22/22: * No plan at this time to wean/discontinue IV Solu-medrol * BSGs remain elevated (undoubtedly from q8h Solu-medrol) - will plan to increase basal and tighten bolus insulin parameters further today * Plan appears to be to discharge to home with hospice (will allow for leniency in BSG control with a goal of limiting hypoglycemia) 09/21/22: * BSGs have been uncontrolled since the initiation of IV SoluMedrol. * Despite aggressive basal/bolus insulin dosing, BSGs have been persistently high. * With patient's renal function (SCr 2.73 today), expect that Lantus has not reached steady-state yet. Once it does, expect that patient's dose may require adjustment. Also expect insulin needs to decrease if/when steroids taper or stop. * Given that pt's family is starting to consider palliative measures, ultimate goal will be to prevent hypoglycemia. Would prefer BSGs stay below 200-250 mg/dL, though. * Will continue to follow and adjust regimen conservatively. 09/19/22: * BSGs improved following consult yesterday * Patient received 54 units of insulin (15 units of basal, 31 units of SC bolus, and 8 units of IV regular insulin) * Fasting BSG of 130 mg/dL this morning * Did not anticipate changes to insulin regimen today, but Solu-medrol 40 mg IV q8h initiated for this afternoon * Will tighten Novolog and increase basal insulin to equal weight-based stress of 3 dosing 09/18/22: * TS is a 77 year old male who presented to ED overnight on 09/16-09/17 with worsening shortness of breath * Pharmacy consulted for glycemic management this morning (09/18) due to persistently elevated BSGs yesterday * Zosyn + azithromycin ordered, no steroids at this time * Will utilize past inpatient glycemic data to guide initial insulin dosing * Lunch BSG of 326 mg/dL - will give one-time IV insulin bolus PLAN FOR INPATIENT GLYCEMIC CONTROL: * Hold outpatient oral diabetes medications * Basal insulin * NPH 25 units daily with PO prednisone 60 mg once daily * Bolus insulin * NovoLog per scale ACHS or Q6hrs while NPO * Goal Range: Low 110 mg/dL - High 140 mg/dL * Correction Factor: 18 mg/dL/unit * Carb ratio: 5 g CHO/unit
--- NOTE | 2022-09-29 14:06 | Hospitalist Progress Note ---
Date of Service September 29, 2022 Assessment & Plan (1) Dyspnea: Plan: 77yo male with chronic respiratory failure with hypoxia, end stage COPD on 4L home oxygen, recently discovered VERN spiculated mass measuring 5.4cm concerning for bronchogenic carcinoma, WENDY, CAD, DM, HTN, HLP and CKD-III presenting from [facility] w/ increased O2 requirement and dyspnea. Goals of Care/Palliative -Palliative consulted. Plan for SNF discharge with hospice. -With current oxygen status, returning to [facility] for home hospice. Pending arrangement of high flow machine at the facility. Hopeful for discharge to [facility] on hospice tomorrow. -Update: 09/29 still awaiting delivery of high flow machine. Unable to discharge today. -Stop daily blood work -No further hospital admissions. * Ativan 1mg q2h PRN, Morphine 5mg q4h for pain/agitation/anxiety * Morphine prn-Planning for discharge to [facility]/Home Hospice, but due to delays in delivery of high flow oxygen will plan for discharge tomorrow Acute on chronic hypoxic respiratory failure -In setting of probable aspiration pneumonia and end-stage COPD -CTA of the chest without PE, multifocal airspace disease suggestive of PNA vs aspiration -Required 15L O2 at admission. Now sating well at 5L. Probable aspiration pneumonia with End Stage copd -Continue neb treatments - Arformoterol and Budesonide - DuoNeb q 4 hours and Albuterol -Hypertonic saline Nebs BID PRN suspected mucus plugging/chest congestion -Flutter valve -Azithromycin course - switched back to every day home dose. -Finished Zosyn x7 days for multifocal pneumonia -Methylpred switched to PO Prednisone 60 -Plan for extended Prednisone taper Moderate pulmonary hypertension and chronic HFpEF -Per 09/2022 echo, new from 07/2021 echo. -EF 60-65%. No RWMA. Moderate concentric LVH. Mild RA/RV dilation. Very small pericardial effusion. -Home azithromycin q2d -Did intermittently hold home Lasix dosing (40 mg AM 20 mg PM). On 20 mg QAM at present Recurrent episodes of SVT requiring lopressor IV doses -spontaneously reverted to sinus rhythm. Acute kidney injury on chronic kidney disease -Baseline Cr 1.6s-1.7s, uptrending Cr this admission to 2.46. s/p IV Lasix in the ED -Potassium of 3.5 and restarted Lasix 20mg. Obstructive sleep apnea -Patient is noncompliant with CPAP. Coronary artery disease -Continue ASA 81mg po daily, Atorvastatin 20mg po qHS Hypertension -Continue Diltiazem DM type 2 -Hold oral agents -Lantus and SSI. Pharmacy glycemic consult placed. F/E/N DM2, low Na. Ppx - SQ heparin Code - DNR/DNI Dispo Med surg; plan for discharge to [facility] on hospice (2) Hypoxia: (3) WENDY (obstructive sleep apnea): (4) Coronary artery disease: (5) Hypertension: (6) Hyperlipidemia: (7) DM type 2 (diabetes mellitus, type 2): Admission and Anticipated Discharge Date Admission Date: September 17, 2022 Supervising Physician Co-Signing Physician Notes Resident Physician Supervision Note: I independently interviewed and examined the patient and verified the roca history and physical, reviewed labs and image studies and agree with resident findings and care plan. Subjective Patient seen and examined at bedside this morning. Patient notes that the Ativan continues to help with his sleep. Expresses some frustration as his discharge to [facility] has been delayed since the high flow oxygen machine has not been delivered yet. He denies any other concerns at this time. Review of Systems Review of Systems: As per above Physical Exam Constitutional: + frail appearing and cooperative Eyes: + anicteric sclerae Respiratory: no respiratory distress Auscultation: + rhonchi and + wheezes Cardiovascular: Rate/Rhythm: regular rate and regular rhythm Skin: no rashes, warm and dry Psychiatric: A+Ox3, euthymic affect Results & Data Results & Data Vital Signs (Past 12 Hours) Vital Signs Temp Pulse Resp BP Pulse Ox O2 Del Method O2 Flow Rate 09/29/22 07:59 Nasal Cannula 5 09/29/22 07:40 36.8 C 84 20 163/74 H 94 Nasal Cannula 5 09/29/22 07:13 80 16 95 Nasal Cannula 5 Resident Activity Tracking Resident Involvement: Resident Care Provided Care Provided: Adult Hospital Medicine (4) Coronary artery disease Associated angina: without angina Coronary Disease-Associated Artery/Lesion type: [place] artery [place] vs. 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
[2022-09-29] MEDS: ALBUTEROL 0.083% NEBU SOLN 3 ML VIAL NEB PRN (23:05)
[2022-09-30] MEDS: LORazepam 1 MG TAB PO PRN ×2 (01:01→04:30)
[2022-09-30] MEDS: FORMOTEROL 20 MCG/2 ML VIAL INH SCH (07:17)
[2022-09-30] MEDS: BUDESONIDE 0.5 MG/2 ML VIAL (PULMICORT) INH SCH (07:17)
[2022-09-30] MEDS: INSULIN ASPART PER UNIT CHARGE SC SCH (08:28)
[2022-09-30] MEDS: ASPIRIN 81 MG ECTAB PO SCH (08:29)
[2022-09-30] MEDS: amLODIPine BESYLATE 5 MG TAB PO SCH (08:30)
[2022-09-30] MEDS: FUROSEMIDE 20 MG TAB PO SCH (08:31)
[2022-09-30] MEDS: dilTIAZem HCL 240 MG CAPCR PO SCH (08:31)
[2022-09-30] MEDS: predniSONE 20 MG TAB PO SCH (08:32)
[2022-09-30] MEDS: PANTOprazole 40 MG TAB PO SCH (08:32)
[2022-09-30] MEDS: HEPARIN SOD 5,000 UNIT/0.5 ML VIAL SQ SCH (08:39)
[2022-09-30] MEDS ORDERED: INSULIN HUMAN NPH SQ SCH ×2 (09:00)
--- NOTE | 2022-09-30 10:04 | Discharge Summary ---
Date of Service September 30, 2022 Admission HPI Per Admitting Provider Kristopher Louie is a pleasant 77yo male with chronic respiratory failure with hypoxia, end stage COPD on home oxygen, recently discovered VERN spiculated mass measuring 5.4cm concerning for bronchogenic carcinoma, WENDY, CAD, DM, HTN, HLP and CKD-III presenting with shortness of breath. Patient was recently admitted to [facility] from 09/04/22 - 09/09/22 after presenting with shortness of breath. Patient was treated for a COPD exacerbation and discharged home in stable condition. He was started on Azithromycin 250mg po QOD for his COPD. Patient presents this evening with progressive shortness of breath. He reports difficulty breathing throughout the day. He is typically on 4L/min by MT which was gradually increased throughout the day due to shortness of breath and hypoxia. He was on 10L/m by MT when EMS was called. He took several nebs throughout the day with minimal improvement. EMS placed patient on NRB and administered Solumedrol. Patient hypoxic upon arrival to the ER, tachycardic and tachypneic. He was maintained on NRB 15L and administered 0.5mg of Ativan which improved his HR and respiratory distress. Patient denies chest pain. He does not admit to increase in cough or sputum production. Denies fever, chills, sweats, abdominal pain, nausea, vomiting, diarrhea or constipation. No additional complaints at this time ER Course: Cefepime NSS at 125mL/hr Ativan 0.5mg IV Admission Exam Per Admitting Provider General: patient resting comfortably, easily arousable, NAD, non-toxic in appearance, AA&O x 4, chronically ill in appearance Skin: warm, dry, intact, no rashes or lesions HEENT: NC/AT, PERRL, EOMI, anicteric sclera, conjunctiva without injection, external ear normal to inspection and nontender, nares patent, moist mucus membranes, dentition intact, no oropharyngeal lesions, neck supple, trachea midline, no LAD, no thyromegaly, no JVD Heart: +S1/S2, regular, no m/r/g Lungs: equal air entry bilaterally, coarse breath sounds bilaterally, no wheezing Abd: +BS, soft, NT/ND, no masses/organomegaly/ascites Ext: warm, 2+ pulses in UE/LE bilaterally, no clubbing/cyanosis or edema Neuro: nonfocal, patient AA&O x 4, speech intact, no facial droop, moving all extremities on command with equal strength 5/ Principal Diagnosis End Stage COPD Discharge Exam Constitutional + frail appearing and cooperative Eyes + anicteric sclerae ENMT Ears: no external ear abnormality Moist mucous membranes Respiratory no respiratory distress Auscultation: + rhonchi and + wheezes Cardiovascular Rate/Rhythm: regular rate and regular rhythm Skin no rashes, warm and dry Psychiatric A+Ox3, euthymic affect Discharge Data Allergies Allergy/AdvReac Type Severity Reaction Status Date / Time ALYSSA Inhibitors Allergy Severe ANAPHYLAXIS Verified 09/04/22 10:18 Consultations 09/17/22 01:21 ED Decision to Admit Stat 09/17/22 05:01 Consult Palliative Care Routine 09/18/22 16:39 Consult Nephrology Routine Ordered Studies 09/17/22 00:25 CT angio chest PE protocol Stat Chest X-Ray 09/16/22 23:08 SINGLE VIEW CHEST CLINICAL HISTORY: Dyspnea FINDINGS: An AP, portable, upright chest radiograph is compared to study dated 09/05/2022 and correlated with chest CT dated 08/19/2022. The heart is enlarged indenting atherosclerotic calcification of the thoracic aorta. The pulmonary vasculature is noncongested. Emphysema and chronic interstitial thickening is similar to previous. Multifocal airspace consolidation has significantly increased as compared to 09/23. This is greatest at the lung bases. No large pleural effusion or pneumothorax is seen. The skeletal structures are osteopenic. The bony thorax is grossly intact. IMPRESSION: 1. There is increasing multifocal airspace consolidation. The appearance is typical for pneumonia/aspiration pneumonitis. Clinical correlation will be required and radiographic follow-up to resolution is recommended. 2. Cardiomegaly and emphysema. ACT 112: Negative or not required by law. Electronically signed by: Devan Irene M.D. 09/17/2022 8:34 AM Chest CTA 09/17/22 00:25 Exam(s): CTA CHEST IV Amt: 120ML OF OPTIRAY 320 EXAM: CT Angiography Chest With Intravenous Contrast CLINICAL HISTORY: Pulmonary embolus. TECHNIQUE: Axial computed tomographic angiography images of the chest with intravenous contrast. Automated exposure control was utilized for the study. A dose lowering technique was utilized adhering to the principles of ALARA. MIP reconstructed images were created and reviewed. COMPARISON: No relevant prior studies available. FINDINGS: Pulmonary arteries: Unremarkable. No pulmonary embolus. Aorta: Mild atherosclerosis. No aneurysm or dissection. Lungs: Diffuse bilateral airspace opacities are most consistent with multifocal pneumonia and/or aspiration. Emphysema. Pleural space: Unremarkable. No significant effusion. No pneumothorax. Heart: Unremarkable. No cardiomegaly. No significant pericardial effusion. No evidence of RV dysfunction. Bones/joints: There are degenerative changes of the spine. No fracture. Soft tissues: Unremarkable. Lymph nodes: Unremarkable. No enlarged lymph nodes. IMPRESSION: 1. No pulmonary embolus. 2. Diffuse bilateral airspace opacities are most consistent with multifocal pneumonia and/or aspiration. 3. Emphysema. Electronically signed by: Beata Jansen MD 09/17/22 02:54 AM Chest X-Ray 09/18/22 16:03 SINGLE VIEW CHEST CLINICAL HISTORY: Hypoxia. FINDINGS: An AP, portable, upright chest radiograph is compared to chest x-ray dated 09/16/2022 and correlated with chest CT dated 09/17/2022. The heart is enlarged indenting atherosclerotic calcification of the thoracic aorta. The pulmonary vasculature is noncongested. Emphysema and chronic interstitial thickening is similar to previous. Extensive sinus multifocal airspace consolidation has not significantly changed from yesterday. This is greatest in the mid to lower lungs. Consolidation partially obscures a spiculated left upper lobe masslike opacity. This was better assessed on prior CT scans. No large pleural effusion or pneumothorax is seen. The skeletal structures are osteopenic. The bony thorax is grossly intact. IMPRESSION: 1. Extensive multifocal airspace consolidation is not significantly changed from yesterday. Radiographic follow-up to resolution is recommended. 2. Cardiomegaly and emphysema. ACT 112: Negative or not required by law. Electronically signed by: Devan Irene M.D. 09/18/2022 5:02 PM Chest X-Ray 09/21/22 08:00 XR chest 2V PA/lateral CLINICAL HISTORY: Shortness of breath. Assess pneumonia. COMPARISON STUDY: Chest CT September 17, 2022. Chest radiograph September 18, 2022. FINDINGS: There is no pneumothorax. Small left pleural effusion is noted. There has been mild improvement in extensive bilateral mid and lower lung airspace opacities consistent with pneumonia. Cardiomediastinal silhouette is stable. There is emphysema. IMPRESSION: 1. Mild improvement in extensive multifocal pneumonia. 2. Small left pleural effusion. ACT 112: Negative or not required by law. Electronically signed by: Seth Sandy M.D. 09/21/2022 9:30 AM Hospital Course (1) Dyspnea: 77yo male with chronic respiratory failure with hypoxia, end stage COPD on 4L home oxygen, recently discovered VERN spiculated mass measuring 5.4cm concerning for bronchogenic carcinoma, WENDY, CAD, DM, HTN, HLP and CKD-III presenting from [facility] w/ increased O2 requirement and dyspnea. Goals of Care/Palliative Palliative consulted due to severe end stage COPD and significantly increased oxygen requirement. Patient was previously established as DNR/DNI but due to worsening of condition it was decided with family that discussion with palliative would be beneficial. Plan was decided to return to [facility] (can accept up to 10L high flow oxygen need) with [facility] home hospice. Decision was also made to stop daily/routine blood work and minimize other interventions. Patient was started on Ativan and Morphine PRN for pain/agitation/anxiety. Patient hopes to avoid any future hospitalizations. Acute on chronic hypoxic respiratory failure In setting of probable aspiration pneumonia and end-stage COPD. CTA of the chest without PE, multifocal airspace disease suggestive of PNA vs aspiration. Required 15L O2 at admission, after ongoing steroid and antibiotic treatment, was at 4-5L NC at time of discharge to [facility]. Probable aspiration pneumonia with End Stage COPD Initial concern of possible aspiration pneumonia (multifocal) in the setting of end stage COPD. He was continued on his home azithromycin but due to respiratory status failing to improve, he was started on Zosyn (completed 7 day course) which appeared to improve his symptoms and decreased his O2 requirement. He received ongoing neb treatments - Arformoterol and Budesonide as well as hypertonic saline Nebs BID PRN suspected mucus plugging/chest congestion. He was started on IV Methypred which was eventually transitioned to PO Prednisone extended taper at the time of discharge. Moderate pulmonary hypertension and chronic HFpEF Per 09/2022 echo, pulmonary hypertension was a new finding compared to 07/2021 echo. EF 60-65%. No RWMA. Moderate concentric LVH. Mild RA/RV dilation. Very small pericardial effusion. Did intermittently hold home Lasix dosing (40 mg AM 20 mg PM), restarted Lasix at 20 mg QAM upon discharge. Recurrent episodes of SVT requiring lopressor IV doses Had episode of SVT with rate in the 130s earlier in admission, this responded well to IV Lopressor and reverted to sinus rhythm on two separate occasions. Heart rate remained regular in the 70s-80s for remainder of admission. Acute kidney injury on chronic kidney disease Patient had a baseline Cr 1.6s-1.7s, this uptrended during his admission to 2.46. Lasix was eventually continued at a decreased dose (20mg) to benefit respiratory status. Obstructive sleep apnea Patient is noncompliant with CPAP in the past, is being discharge to [facility]Home Hospice with supplemental oxygen as needed. Coronary artery disease Continue ASA 81mg po daily, Atorvastatin discontinued due to hospice status. Hypertension Continue Diltiazem DM type 2 Held oral agents during admission. Alka and SSI: pharmacy consulted for glycemic control due to extended high dose steroids. Given discharge to home hospice, would keep glycemic control relatively loose with a goal of preventing hyperglycemic dehydration. (2) Hypoxia: (3) WENDY (obstructive sleep apnea): (4) Coronary artery disease: (5) Hypertension: (6) Hyperlipidemia: (7) DM type 2 (diabetes mellitus, type 2): Total Time Total Time Spent Total Time Spent (In Minutes): . Discharge Plan Discharge Items Patient Disposition: Transfer Assisted Fac Reason For Visit: SHORTNESS OF BREATH Discharge Diagnosis: End Stage COPD Activity: Per Instructions section Non-emergency contact: Primary Care Provider Call non-emergency contact if: you have any medication questions and your symptoms worsen Follow-up/Referrals: James Perdue MD [Primary Care Provider] - Diet: Carb Consistent or DM2 Addtl Attending Provider Instructions: End Stage Lung Disease -Extensive discussions with patient and son/daughter over multiple days yielding very consistent wishes in agreement with patient and his family ---> He is aware that he is dying of end-stage lung disease (predominantly COPD, but also diastolic CHF, and a lung mass that he would like to be left alone) ---> He expresses a desire to avoid being readmitted to the hospital and would prefer treatment that can be carried out at SNF as best as possible there wi thout being sent to the ER/without rehospitalization ---> We discussed what he would prefer to be done as far as an overall treatment strategy when he suffers his next decompensation: Discussing med management as best as possible along with symptom control, versus purely symptom control. -He notes that he would like med management/disease management if possiblegenerically speaking that would amount to oral steroids, oral Lasix, and nebulizers (obviously paying deference to clinical assessment with how he looks when his next decompensation occurs -He notes that if medical management/disease management does not quickly improve his dyspnea (arbitrarily within an hour or so) then he would prefer utilization of symptom control measures (such as sublingual morphine/Ativan) to alleviate dyspnea/suffering ---> Hospice consult discussed, and he is absolutely willing to have hospice formally involved if it assists the facility in managing his disease/symptoms Kristopher Louie is a 77 year-old male with chronic respiratory failure with hypoxia, end stage COPD on 4L home oxygen, recently discovered VERN spiculated mass measuring 5.4cm concerning for bronchogenic carcinoma, WENDY, CAD, DM, HTN, HLP and CKD-III presenting from [facility] w/ increased O2 requirement and dyspnea. Goals of Care/Palliative -Palliative consulted, appreciate recommendations -With current oxygen status (has been at 5L NC), returning to [facility] for home hospice -Stopped daily blood work -No further hospital admissions. * Ativan 1mg q2h PRN, Morphine 5mg q4h for pain/agitation/anxiety Acute on chronic hypoxic respiratory failure -In setting of probable aspiration pneumonia and end-stage COPD -CTA of the chest without PE, multifocal airspace disease suggestive of PNA vs aspiration -Requiring 15L O2 at admission Probable aspiration pneumonia with End Stage COPD -Continue neb treatments - Arformoterol and Budesonide - DuoNeb q 4 hours and Albuterol -Hypertonic saline Nebs BID PRN suspected mucus plugging/chest congestion -Flutter valve -Azithromycin 250mg daily, now discontinued -Finished Zosyn x7 days for multifocal pneumonia. -Methylpred switched to PO Prednisone 60 -Plan to taper slowly with 3 days 60mg, 3 days 40mg, 3 days of 20mg, 3 days of 10mg Moderate pulmonary hypertension and chronic HFpEF -Per 09/2022 echo, new from 07/2021 echo. -EF 60-65%. No RWMA. Moderate concentric LVH. Mild RA/RV dilation. Very small pericardial effusion. -Continue Lasix 20 mg QAM at present Supraventricular tachycardia afternoon of 09/18 -w/ reported hx of SVT. Patient woke up from nap and HR->140s. Lungs w/ noticeable inspiratory crackles. -Reverted to sinus 80s after 1 dose of IV Lopressor -Repeat intermittent episodes of tachycardia to 130s HR, unprovoked and asymptomatic -HR in 70s-80s. On telemetry had some ectopy, PVCs although asymptomatic. -Did not require subsequent IV Lopressor Acute kidney injury on chronic kidney disease -Baseline Cr 1.6s-1.7s, uptrending Cr this admission to 2.46. s/p 1 dose IV L asix in the ED -Potassium of 3.5 and restarted Lasix at 20mg daily, could switch to q48h at patient preference. Obstructive sleep apnea -Patient is noncompliant with CPAP. Coronary artery disease -Continue ASA 81mg po daily. Given hospice status, statin was discontinued. Hypertension -Continue Diltiazem DM type 2 -Held oral agents -Lantus and SSI, carb ratio loosened to 5 given episode of hypoglycemia. -Would recommend continuing on insulin regimen at discharge considering longer Prednisone taper. After prednisone taper, could consider returning to oral agents. Pending Studies at Discharge: No Stand-Alone Forms: My [facility] Skilled Items Patient informed of condition?: Yes DNR: Yes Discharge Level of Care: Other Communicable Disease: No Discharge Prognosis: Other Lines: None Urinary Catheter: No Medications and DC Order Prescriptions: New diltiazem HCl 240 mg Capsule,Extended Release 24hr 240 mg PO BID 30 Days Qty: 60 0RF amlodipine 5 mg tablet 5 mg PO QAM 30 Days Qty: 30 0RF furosemide 20 mg Tablet 20 mg PO QAM 30 Days Qty: 30 0RF pantoprazole 40 mg Tablet,Delayed Release (Dr/Ec) 40 mg PO DAILY 30 Days Qty: 30 0RF insulin aspart U-100 100 unit/mL (3 mL) insulin pen 1 sliding scale dose subcut ACHS Qty: 15 1RF Rx Instructions: --Goal BSG Range: Low 110 mg/dL, High 140 mg/dL --Correction Factor: 18 mg/dL/unit --Carbohydrate ratio = 2.5 g/unit --BSGs ACHS if eating, q6h if npo budesonide 0.5 mg/2 mL Suspension For Nebulization 0.5 mg inhalation BIDR Qty: 60 0RF insulin glargine [Lantus U-100 Insulin] 100 unit/mL solution 35 unit subcut QAM Qty: 10 3RF morphine concentrate 100 mg/5 mL (20 mg/mL) Solution 5 mg PO Q4H PRN (Reason: Pain) Qty: 2 0RF lorazepam 1 mg Tablet 1 mg PO Q2H PRN (Reason: Anxiety) Qty: 5 0RF prednisone 10 mg tablet 10 mg PO DIRECTED Qty: 39 0RF Rx Instructions: Take 60mg (6 tabs) daily for 3 days, then take 40mg (4 tabs) daily for 3 days, then take 20mg (2 tabs) daily for 3 days, then take 10mg (1 tab) daily for 3 days Continued (DME) Oxygen Home Liters Per Minute See Dose Instructions .ROUTE .MEDSUPPLY Qty: 1 Rx Instructions: As directed (DME) Portable Oxygen Misc See Rx Instructions .Route Qty: 1 0RF Rx Instructions: Portable oxygen concentrator at a flow rate of 4 L/min via nasal cannula. Length of need is 99 years. aspirin 81 mg tablet,delayed release (DR/EC) 81 mg PO Q OTHER DAY 30 Days Qty: 15 0RF ferrous sulfate [Feosol] 325 mg (65 mg iron) tablet 325 mg PO Q OTHER DAY 30 Days Qty: 15 0RF albuterol sulfate 90 mcg/actuation HFA aerosol inhaler 2 puff Inhalation Q4 PRN (Reason: Wheezing) Qty: 6.7 0RF arformoterol 15 mcg/2 mL solution for nebulization 2 ml inhalation BID Qty: 120 3RF Spiriva Respimat 2.5 mcg/actuation mist 2 puff INHALATION QAM Qty: 4 1RF Held Lokelma 5 gram powder in packet 5 g PO [id number] Hold Instructions: Resume on 09/26/22. hold Rx Instructions: Patient takes on //Sat Discontinued budesonide 0.5 mg/2 mL suspension for nebulization 0.5 mg inhalation BID Qty: 120 5RF furosemide 20 mg tablet 20 mg PO .COMPLEX Qty: 270 3RF Rx Instructions: 20 mg orally Take 2 tablets in the AM and 1 tablet in the afternoon pantoprazole 20 mg tablet,delayed release (DR/EC) 20 mg PO DAILY ascorbic acid (vitamin C) 1,000 mg tablet 1 gm PO QAM mecobalamin (vitamin B12) 1,000 mcg tablet,chewable 1,000 mcg PO DAILY atorvastatin 20 mg tablet 20 mg PO HS metformin 1,000 mg tablet 1,000 mg PO BID nitroglycerin 0.4 mg tablet, sublingual 0.4 mg Sublingual DIRECTED PRN (Reason: Chest Pain) Rx Instructions: 1 tab sublingual every 5 minutes as needed for chest pain Farxiga 10 mg tablet 10 mg PO QAM Rybelsus 14 mg tablet 14 mg PO QAM magnesium oxide 400 mg magnesium Capsule 400 mg PO BID azithromycin 250 mg Tablet 250 mg PO Q OTHER DAY 30 Days Qty: 15 0RF diltiazem HCl 240 mg capsule,extended release 24hr 240 mg PO BID Discharge Orders: Discharge Order (Routine); Ordered 09/30/22 Ordered By: Asiya Gunn Admission Data Admit Date/Time: 09/17/22 01:55 Attending Provider: Tanya Kovacs Admit Provider: Katlyn Jean Primary Care Provider: James Perdue Other Providers: [facility],Home Healthcare ; Katlyn Jean ; Nakia Wells ; Ange Rodriguez ; Ok Gutierres Other Interventions: Discharge Summary Assessment (RN) Last Done: 09/30/22 09:50 Supervising Physician Co-Signing Physician Notes Resident Physician Supervision Note: I independently interviewed and examined the patient and verified the roca history and physical, reviewed labs and image studies and agree with resident findings and care plan.
[2022-09-30] MEDS ORDERED: LANTUS PER UNIT CHARGE SC SCH (21:00)
[2022-09-30] MEDS ORDERED: AZITHROMYCIN 250 MG TAB PO SCH (21:00)
== END 2022-09-30 10:11 | DRG 177 ==
LOC: ED 22:45 → SUATTDRO 09-17 01:55 → 4W 09-17 01:55 → 1E 09-22 09:44 → 3W 09-23 14:38